=== PATIENT | female | born 1950 | race Caucasian/White ===

== ENCOUNTER → 2020-08-15 | Outpatient (BNVA) | payer MEDICARE, SELFPAY | PROVIDERS: PCP Family Medicine; Referring Provider Family Medicine; Visit Provider Nurse Practitioner Family | DX: Z01.810 Encounter for preprocedural cardiovascular examination (principal); I25.10 Atherosclerotic heart disease of native coronary artery without angina pectoris; I42.8 Other cardiomyopathies; I11.0 Hypertensive heart disease with heart failure; I50.22 Chronic systolic (congestive) heart failure; I48.0 Paroxysmal atrial fibrillation; I44.7 Left bundle-branch block, unspecified; Z79.01 Long term (current) use of anticoagulants; Z79.899 Other long term (current) drug therapy; Z95.810 Presence of automatic (implantable) cardiac defibrillator | CPT/HCPCS: 93000; 99214 ==

== ENCOUNTER 2020-08-22 09:21 | Outpatient (REF) | payer MEDICARE, SELFPAY ==
[2020-08-22 13:01] LABS: Alanine Aminotransferase 17 U/L (0-31); Anion Gap 13 (12-20); Aspartate Amino Transferase 23 U/L (5-31); Blood Urea Nitrogen 18 mg/dL (9-16); Calcium 8.8 mg/dL (8.4-10.2); Carbon Dioxide 26 mmol/L (22-29); Chloride 105 mmol/L (96-108); Estimated Glomerular Filt Rate > 60; Glucose Random 91 mg/dL (60-115); Potassium 4.5 mmol/l (3.3-5.1); Sodium 139 mmol/L (135-145)
[2020-08-22 13:23] LABS: TSH reflex Free T4 4.24 mIU/mL (0.32-4.0)
[2020-08-22 14:18] LABS: Free T4 (Free Thyroxine) 1.05 ng/dL (0.71-1.85)
== END 2020-08-22 09:22 | disposition home or self-care (01) ==
LOC: HO.LAB 09:21
PROVIDERS: PCP Family Medicine; Visit Provider Nurse Practitioner Family
DX: I48.0 Paroxysmal atrial fibrillation (principal); I10 Essential (primary) hypertension
CPT/HCPCS: 80048; 84439; 84443; 84450; 84460

== ENCOUNTER → 2020-09-23 10:34 | Outpatient (BNVA) | payer MEDICARE, SELFPAY | PROVIDERS: PCP Family Medicine; Referring Provider Family Medicine; Visit Provider Internal Medicine Cardiovascular Disease | DX: I50.22 Chronic systolic (congestive) heart failure (principal); I42.8 Other cardiomyopathies; I48.0 Paroxysmal atrial fibrillation; I25.10 Atherosclerotic heart disease of native coronary artery without angina pectoris; Z79.01 Long term (current) use of anticoagulants; Z79.899 Other long term (current) drug therapy | CPT/HCPCS: Q3014 ==

== ENCOUNTER → 2020-10-28 10:44 | Outpatient (BNVA) | payer MEDICARE, SELFPAY | PROVIDERS: PCP Family Medicine; Visit Provider Nurse Practitioner Family | DX: Z01.810 Encounter for preprocedural cardiovascular examination (principal); I48.0 Paroxysmal atrial fibrillation; I44.7 Left bundle-branch block, unspecified; I25.10 Atherosclerotic heart disease of native coronary artery without angina pectoris; I42.8 Other cardiomyopathies; I11.0 Hypertensive heart disease with heart failure; I50.22 Chronic systolic (congestive) heart failure; Z79.01 Long term (current) use of anticoagulants; Z79.899 Other long term (current) drug therapy; Z95.810 Presence of automatic (implantable) cardiac defibrillator | CPT/HCPCS: 93005; 99212 ==

== ENCOUNTER → 2021-01-01 11:51 | Outpatient (BNVA) | payer MEDICARE, MEDICAID, SELFPAY | PROVIDERS: PCP Family Medicine; Visit Provider Internal Medicine Cardiovascular Disease | DX: I48.0 Paroxysmal atrial fibrillation (principal); I25.10 Atherosclerotic heart disease of native coronary artery without angina pectoris; I50.22 Chronic systolic (congestive) heart failure; Z95.810 Presence of automatic (implantable) cardiac defibrillator; Z79.899 Other long term (current) drug therapy | CPT/HCPCS: 93005; 99212 ==

== ENCOUNTER → 2021-07-01 09:48 | Outpatient (REF) | payer MEDICARE, SELFPAY ==
--- NOTE | 2021-07-01 09:52 | CA_ITS ---
Transthoracic Echocardiogram Patient (Last, First, Middle): Marlin Correa J Gender: Female Date of : 1950 Age: 71 Procedure Date: 07/01/2021 Procedure Type: Transthoracic Echocardiogram Location: OP Height: 165.1 cm Weight: 80.74 kg BSA: 1.88 m2 Heart Rate: bpm BP: 152 / 72 mmHg Electrical Engineering Drafting Officer: Referring MD: Marvin Swanson MD Marketing Automation Specialist: Marvin Swanson MD Symptoms: I42.9 - Cardiomyopathy, unspecified Study Quality: Fair ECG Rhythm: Ventriculary paced rhythm Conclusions: - 1. Low normal LV systolic function LVEF of 50-55% with impaired relaxation filling pattern and elevated filling pressures 2. Mildly dilated left atrium 3. Calcified aortic valve changes noted with may be early aortic stenosis 4. Mitral calcification with mild mitral regurgitation 5. Normal RV systolic pressure 6. Small to moderate pericardial effusion Findings Left Ventricle Normal left ventricular cavity size. There is normal left ventricular wall thickness. The left ventricular systolic function is low normal. The visually estimated ejection fraction is between 50-55%. Spectral Doppler is indicative of an impaired relaxation filling pattern. E/E prime ratio is >15, consistent with elevated filling pressures. Right Ventricle Normal right ventricular cavity size and systolic function. There is an ICD wire seen in the right ventricle. Atria The left atrium is mildly dilated. There is no evidence of interatrial shunt. The right atrium is mildly dilated. Aortic Valve There is mild calcification of the aortic valve. There are fibrocalcifications on the aortic valve wall. There is no aortic valve stenosis. The peak aortic gradient is 13 mmHg.The mean gradient is 7 mmHg. There is no aortic valve regurgitation. Mitral Valve There is mild anterior and moderate posterior mitral leaflet thickening. There is moderate mitral annular calcification. There is mild mitral valve regurgitation. There is no mitral valve stenosis. Pulmonic Valve The pulmonic valve was not well visualized. Tricuspid Valve Likely normal tricuspid valve structure and function. There is mild tricuspid valve regurgitation. The right ventricular systolic pressure is normal. The right ventricular systolic pressure is 25 mmHg. The pulmonary artery systolic pressure is not calculated. Normal right atrial pressure. There is no evidence of pulmonary hypertension. Great Vessels All visible segments of the aorta are normal in size. The pulmonary artery was not well visualized. Venous The inferior vena cava is normal in size and collapses greater than 50% with inspiration. Pericardium/Pleural There is a small circumferential pericardial effusion. There is no pleural effusion. Prior Study Comparison Changes noted compared to prior study dated: 07/16/2020. LV systolic function has improved Measurements 2D Linear Measurements RVIDd: 3.02 RVIDd Index: 1.61 IVSd: 0.96 0.6-0.9/0.6-1.0 cm LVIDd: 4.42 3.9-5.3/4.2-5.9 cm LVIDd Index: 2.35 2.4-3.2/2.2-3.1 cm/m2 LVIDs: 3.56 2.0-3.6 cm LVPWd: 1.53 0.7-1.1 cm Ao Root: 2.40 2.1-3.5 cm LA Diam: 4.40 2.7-3.8/3.0-4.0 cm LAIDs Index: 2.34 1.5-2.3 cm/m2 LV Mass: 253.33 67-162/88-224 g LV Mass Index: 134.75 43-95/49-115 g/m2 LVOT Diam: 2.00 3.0+(-)1.3 cm 2D Systolic Function EF 4C: 46.60 >55% EF 2C: 56.60 >55% EF BiP: 50.70 >55% Mitral Valve MV Pk E: 0.89 MV PK A: 1.03 MV Decel Time: 266.00 E/A: 0.90 E'Lateral: 5.44 E'Medial: 5.44 E/E' Med: 16.40 E/E' Lat: 16.40 Aortic Valve AoV Pk Kyrie: 1.81 AoV Mn Kyrie: 1.31 AoV VTI: 0.38 AoV Pk Grad: 13.00 Aov Mn Grad: 7.00 RADHA Cont.VTI: 2.00 LVOT LVOT Pk Kyrie: 0.85 LVOT Mn Kyrie: 0.66 LVOT VTI: 0.24 LVOT Pk Grad: 3.00 LVOT Mn Grad: 2.00 LVOT Diam: 2.00 LVOT Area: 3.14 Diastolic Function MV Pk E: 0.89 MV Pk A: 1.03 E/A: 0.90 E'Medial: 5.44 E/E' Med: 16.40 E' Laterial: 5.44 E/E' Lat: 16.40 Right Ventricle TAPSE (mm): 21.00 TVS' Kyrie: 10.20 Tricuspid Valve TR Pk Kyrie: 2.33 TR Pk Grad: 22.00 RA Press: 3.00 RVSP: 25.00 Great Vessels Aorta Ao Root-2D: 2.40 2.0-3.7 cm Ao Asc: 3.20 2.1-3.4 cm Ao Arch: 2.40 Updated in Other Vendor System with Status of Final Marvin Swanson MD electronically signed on 07/02/2021 12:21:49 PM with status of Final
== END ==
LOC: HO.CARD 09:48
PROVIDERS: Visit Provider Internal Medicine Cardiovascular Disease
DX: I25.10 Atherosclerotic heart disease of native coronary artery without angina pectoris (principal); I42.9 Cardiomyopathy, unspecified; I48.0 Paroxysmal atrial fibrillation; I50.22 Chronic systolic (congestive) heart failure
CPT/HCPCS: 93306

== ENCOUNTER 2021-07-09 10:38 | Outpatient (REF) | payer MEDICARE, SELFPAY ==
[2021-07-09 12:50] LABS: Hematocrit 32.5 % (37-47); Hemoglobin 10.5 g/dl (12.0-16.0); Mean Corpuscular HGB Conc 32.3 g/dl (31.0-35.0); Mean Corpuscular Hemoglobin 33.4 pg (27.0-33.0); Mean Corpuscular Volume 103.5 fL (80-98); Mean Platelet Volume 9.4 fL (9.4-12.3); Platelet Count 176 X10*3/uL (160-400); Red Blood Count 3.14 X10*6/uL (4.20-5.50); Red Cell Distribution Width 14.1 % (11.0-16.0); White Blood Count 6.1 X10*3/uL (4.8-10.8)
[2021-07-09 13:08] LABS: B Type Natriuretic Peptide 79 pg/mL (<100)
[2021-07-09 13:23] LABS: Alanine Aminotransferase 14 U/L (0-31); Albumin Level 3.8 g/dL (3.5-5.0); Alkaline Phosphatase 110 U/L (39-117); Anion Gap 12 (12-20); Aspartate Amino Transferase 19 U/L (5-31); Bilirubin Direct 0.3 mg/dL (0.0-0.5); Bilirubin Total 0.8 mg/dL (0.0-1.0); Blood Urea Nitrogen 19 mg/dL (9-16); Calcium 9.1 mg/dL (8.4-10.2); Carbon Dioxide 27 mmol/L (22-29); Chloride 104 mmol/L (96-108); Estimated Glomerular Filt Rate > 60; Glucose Random 91 mg/dL (60-115); Magnesium 2.1 mg/dL (1.6-2.6); Potassium 4.6 mmol/L (3.3-5.1); Sodium 138 mmol/L (135-145); Total Protein 6.1 g/dL (6.5-8.0)
[2021-07-09 13:29] LABS: TSH reflex Free T4 (Prenatal) 5.96 uIU/mL (0.32-4.0)
[2021-07-09 14:12] LABS: Free T4 (Free Thyroxine) 0.99 ng/dL (0.71-1.85)
== END 2021-07-09 10:39 | disposition home or self-care (01) ==
LOC: HO.LAB 10:38
PROVIDERS: PCP Family Medicine; Referring Provider Family Medicine; Visit Provider Internal Medicine Cardiovascular Disease
DX: I48.0 Paroxysmal atrial fibrillation (principal); I50.22 Chronic systolic (congestive) heart failure; I50.30 Unspecified diastolic (congestive) heart failure; Z95.810 Presence of automatic (implantable) cardiac defibrillator
CPT/HCPCS: 36415; 80048; 80076; 83735; 83880; 84439; 85027; 93005; 99212

== ENCOUNTER 2021-08-15 10:01 | Emergency (ER) | payer MEDICARE, SELFPAY ==
[2021-08-15] VITALS (7 sets, daily range): BP systolic 140–193; BP diastolic 48–61; PULSE 64–70; RESP 16–20; TEMP 36.5–37; O2SAT 97–100; BMI 28.8
--- NOTE | ~2021-08-15 | CT_ITS ---
EXAMINATION: CT ABDOMEN AND PELVIS WITH CONTRAST CLINICAL INFORMATION: Back pain radiating to the left hip. On antibiotics for UTI. COMPARISON: CT abdomen pelvis February 03, 2013 TECHNIQUE: Multidetector volumetric images were obtained from the superior aspect of the liver through the pubic symphysis following administration 85 mL of Omnipaque 350 intravenous contrast. Sagittal and coronal reformatted images were obtained on the technologist's workstation. This CT examination was performed using dose optimization techniques as appropriate, variously including the following: *Automated exposure control *Adjustment of mA and/or kV according to patient size (this includes techniques or standardized protocols for targeted exams where dose is matched to indication/reason for exam; i.e. extremities or head) *Use of iterative reconstruction technique DLP: 748 mGy-cm FINDINGS: Visualized lung bases demonstrate mild dependent atelectasis. Partially visualized AICD leads. A small pericardial effusion is also partially visualized. The liver demonstrates normal size, contour and attenuation. The gallbladder is surgically absent. Mild intrahepatic biliary ductal dilatation is present. The common bile duct is mildly dilated measuring up to 1 cm in diameter. Mild fatty atrophy of the pancreas. The spleen and adrenal glands are unremarkable. Symmetrically enhancing kidneys. No hydronephrosis bilaterally. Normal caliber loops of small and large bowel. Mild circumferential mucosal thickening with mild adjacent mesenteric stranding surrounding a few loops of small bowel within the central abdomen, nonspecific. Moderate colonic stool burden. Moderate colonic diverticulosis without CT evidence to suggest active diverticulitis. Interval enlargement of a now large infraumbilical ventral abdominal hernia. Fascial defect measures approximately 12.5 x 5 cm in transverse by craniocaudal dimension. Several loops of nonobstructed small bowel are present within the hernia. Normal caliber abdominal aorta which demonstrates mild to moderate atherosclerotic disease. No retroperitoneal lymphadenopathy. The bladder is normal in appearance. The uterus is surgically absent. No gross free pelvic fluid. No inguinal lymphadenopathy. Diffuse osteopenia. Scoliotic and moderate degenerative changes of the spine. Mild height loss of the L5 vertebral body, age indeterminate. Degenerative changes of both hips, more prominent on the left. There is complete loss of the superior aspect of the left femoral acetabular joint space. CT/CT abdomen pelvis w con IMPRESSION: 1. Interval enlargement of now large infrarenal umbilical ventral abdominal hernia containing several loops of nonobstructed small bowel. 2. Mild circumferential mucosal thickening is demonstrated within a few loops of small bowel within the central abdomen with adjacent mild mesenteric stranding. Findings are nonspecific but may represent a mild enteritis. Clinical correlation recommended. 3. Moderate colonic stool burden suggesting constipation. 4. Moderate colonic diverticulosis. 5. Mildly dilated common bile duct with mild intrahepatic biliary ductal dilatation, likely within normal limits for a patient of this age who is status post cholecystectomy. 6. Small pericardial effusion partially visualized. 7. Degenerative changes of both hips, more prominent on the left. 8. Mild height loss of the L5 vertebral body, age indeterminate.
--- NOTE | 2021-08-15 12:37 | ED_ITS ---
HPI - Back Pain/Injury General Chief Complaint: Back Pain/Injury <HUA Vu - Last Filed: 08/15/21 20:32> Stated Complaint: lower back and leg pain <HUA Vu Last Filed: 08/15/21 20:32> Time Seen by Provider: 08/15/21 11:51 <HUA Vu Last Filed: 08/15/21 20:32> Source: patient <HUA Vu Last Filed: 08/15/21 20:32> Mode of arrival: ambulatory <HUA Vu Last Filed: 08/15/21 20:32> Limitations: no limitations <HUA Vu Last Filed: 08/15/21 20:32> History of Present Illness HPI Narrative: 71-year-old female with a past medical history of degenerative disc disease of lumbar spine, biventricular ICD in place since 04/2020, CAD, cardiomyopathy, chronic systolic heart failure, hypertension, left bundle branch block, paroxysmal atrial fibrillation currently on Eliquis, uterine cancer status post partial hysterectomy still has right ovary who completed radiation and chemotherapy April 2021 and chronic back pain presenting to the ED with complaints of acute on chronic back pain over the past 3 weeks or more. She reports that she was seen by her primary care provider and was given steroids and she did not have any symptomatic relief. Therefore she was sent to [facility] emergency department where she had x-rays of her lumbar spine per the patient which revealed degenerative disc disease per the patient and she was sent home on antibiotics for UTI although she reports she came here for further evaluation treatment because she is taking Tylenol, muscle relaxants, her antibiotics and steroids and she is still not having any symptomatic relief. She reports that the pain is radiating to her left lower leg right to the knee it is a sharp pain and sensation. She normally walks with a cane although she is having a lot of pain therefore is having trouble walking although does not have any weakness. She denies any fevers, chills, dizziness, headache, neck pain/stiffness, chest pain or shortness of breath, dyspnea on exertion, orthopnea, palpitations, rashes, abdominal pain, dysuria, hematuria, abnormal vaginal discharge, diarrhea constipation, black or bloody stools, urinary or bowel incontinence or retention, paresthesias, recent falls, history of IV drug use, recent surgery or travel or any other symptoms complaints or concerns at this time. <HUA Vu - Last Filed: 08/15/21 20:32> MD elicited complaint: back pain <HUA Vu Last Filed: 08/15/21 20:32> Pertinent past history: prior back pain, arthritis and cancer <HUA Vu - Last Filed: 08/15/21 20:32> Onset (ago): week(s) (Over 3 weeks) <HUA Vu - Last Filed: 08/15/21 20:32> Timing: constant and progressively worsening <HUA Vu - Last Filed: 08/15/21 20:32> Severity: severe <HUA Vu - Last Filed: 08/15/21 20:32> Pain scale (0-10): 10 <HUA Vu Last Filed: 08/15/21 20:32> Quality: sharp <HUA Vu - Last Filed: 08/15/21 20:32> Location: lumbar spine <HUA Vu - Last Filed: 08/15/21 20:32> Radiation: left upper leg (Right to the knee) <HUA Vu - Last Filed: 08/15/21 20:32> Exacerbating factors: movement, supine positioning, sitting upright, walking and lifting <HUA Vu - Last Filed: 08/15/21 20:32> Relieving factors: none <HUA Vu - Last Filed: 08/15/21 20:32> Context: unknown <HUA Vu - Last Filed: 08/15/21 20:32> Associated symptoms: difficulty walking <HUA Vu - Last Filed: 08/15/21 20:32> Treatments prior to arrival: acetaminophen and other (Steroids and her prescribed Keflex and no symptomatic relief) <HUA Vu Last Filed: 08/15/21 20:32> Work related injury: No <HUA Vu Last Filed: 08/15/21 20:32> Related Data Home Medications: Home Medications Medication Instructions Recorded Confirmed atorvastatin 20 mg tablet 20 mg PO DAILY 08/15/20 07/09/21 loratadine 10 mg tablet 10 mg PO DAILY 08/15/20 07/09/21 omeprazole 20 mg capsule,delayed 20 mg PO DAILY 08/15/20 07/09/21 release tramadol 50 mg tablet mg PO 08/15/20 07/09/21 clonazepam 2 mg tablet 2 mg PO tab 07/09/21 07/09/21 furosemide 20 mg tablet 20 mg PO Q OTHER DAY PRN tab 07/09/21 07/09/21 Previous Rx's Medication Instructions Recorded levothyroxine 25 mcg tablet 25 mcg PO QAM 90 Days #90 tab 01/01/21 amiodarone 200 mg tablet 100 mg PO DAILY #30 tab 01/06/21 carvedilol 12.5 mg tablet (Coreg) 12.5 mg PO BID #60 tab 01/28/21 valsartan 160 mg tablet 160 mg PO DAILY 90 Days #90 tab 06/01/21 apixaban 5 mg tablet (Eliquis) 5 mg PO BID 30 Days #60 tab 06/05/21 <HUA Vu - Last Filed: 08/15/21 20:32> Allergies/Adverse Reactions: Allergies Allergy/AdvReac Type Severity Reaction Status Date / Time levofloxacin [From LEVAQUIN] Allergy Intermediate RASH Verified 08/15/21 11:09 Darvocet-N 50 Allergy Mild hives Uncoded 08/15/21 11:09 Sulfacet-R Allergy Unknown gi Uncoded 06/24/20 00:00 <HUA Vu - Last Filed: 08/15/21 20:32> Review of Systems Review of Systems: Constitutional : No trauma, No Weight loss, No Fever, No Chills, ENT/Mouth : No Hearing loss, No Ear Pain, No Nasal Congestion, No Sinus Pain, No Hoarseness, No sore throat, No Rhinorrhea, No Swallowing Difficulty Cardiovascular : No Chest Pain, No SOB Respiratory : No Cough, No Dyspnea Gastrointestinal : No Nausea, No Vomiting, No Diarrhea, No abdominal Pain, No Hematochezia, No Melena Genitourinary : No Dysuria, No Urinary Frequency, No Hematuria, No Urinary or Bowel Incontinence/retention Musculoskeletal : + Back pain, No neck pain, No joint stiffness, No joint swelling Skin : No Skin Lesions, No rash or signs of infection Neuro : No Weakness, No radiation, No Numbness, No Paresthesias, No headache, no loss of bowel or bladder incontinence, no saddle anesthesia, Focal weakness, No radiation Denies history of IV drug usage. <HUA Vu - Last Filed: 08/15/21 20:32> Yes all other systems are reviewed and are negative <HUA Vu - Last Filed: 08/15/21 20:32> [facility] Past Medical History Attestation statement: The following information was validated with the patient. <HUA Vu - Last Filed: 08/15/21 20:32> Medical History: Medical History Biventricular ICD (implantable cardioverter-defibrillator) in place (~04/2020) CAD (coronary artery disease) Cardiomyopathy Chronic systolic heart failure HTN (hypertension) LBBB (left bundle branch block) Paroxysmal atrial fibrillation <HUA Vu - Last Filed: 08/15/21 20:32> Surgical History: Surgical History History of permanent cardiac pacemaker placement Hx of hernia repair <HUA Vu - Last Filed: 08/15/21 20:32> Family History Family History: Family History Father Cancer Mother No problems noted. <HUA Vu - Last Filed: 08/15/21 20:32> Social History Social History: Social History Alcohol intake: never Patient Tobacco Use Status: Never used Tobacco Use of substances other than those prescribed or required for medical reasons: No Advance Directives: Yes Advance Directives Information Provided: Yes Advance Directives on File: No <HUA Vu - Last Filed: 08/15/21 20:32> Physical Exam Vital Signs: Vital Signs: Last Vital Signs Temp 97.8 F 08/16/21 07:49 Pulse 63 08/16/21 07:49 Resp 16 08/16/21 07:49 BP 132/45 L 08/16/21 07:49 Pulse Ox 95 08/16/21 07:49 Body Mass Index 28.8 vital signs have been reviewed as normal and appeared to be correct. Blood pressure 159/59. Heart rate normal. Respiration rate normal. Temperature normal. Oxygen saturation normal. <HUA Vu - Last Filed: 08/15/21 20:32> Vital Signs: Last Vital Signs Temp 97.8 F 08/16/21 07:49 Pulse 63 08/16/21 07:49 Resp 16 08/16/21 07:49 BP 132/45 L 08/16/21 07:49 Pulse Ox 95 08/16/21 07:49 Body Mass Index 28.8 <Helene Mendoza DO - Last Filed: 08/16/21 09:09> Appearance: Alert. Oriented X3. No acute distress. Head: Normal external exam. Normocephalic. Atraumatic. Eyes: PERRLA. EOMI. Conjunctiva and sclera normal. Eyelids normal. ENT: Pharynx normal. Uvula midline. Moist mucous membranes. Neck: Normal inspection. Neck supple. FROM. No adenopathy. Thyroid Normal. No meningeal signs. No neck mass noted. CVS: Normal heart rate and rhythm. Heart sound normal. No murmurs noted. Pulses normal throughout. Respiratory: No respiratory distress. Painless inspiration. Breath sounds normal. No wheezes/rales/rhonchi noted. Chest nontender. No accessory muscle usage noted or decreased air movement noted. Abdomen: Soft and nontender. Bowel sounds normal in all 4 quadrants. No distention noted. No organomegaly noted. No visible injury noted. Back: No CVA tenderness. Full range of motion noted. No obvious deformities, or edema. Mild para-spinal muscular tenderness from lumbar region to coccyx. Full ROM in back and lower extremities. 5/5 strength hip extension/flexion, abduction, adduction. Mild Lumbar pain with hip flexion against resistance. Stra ight leg raise test negative on right; Straight leg raise test negative on left; Reflexes normal ankle and knee bilaterally; EHL motor strength normal bilaterally. No rashes/lesion/induration/fluctuance or signs infection noted. : Normal rectal sensation/sphincter tone. Skin: Skin warm and dry. Normal skin color. Normal skin turgor. No rashes/lesions/lacerations noted. Extremities: No lower extremity edema. Extremities exhibit normal range of motion. Extremities nontender. Neuro: Oriented X 3. No motor deficit. No sensory deficit. Reflexes normal. <HUA Vu - Last Filed: 08/15/21 20:32> Course Course Course Narrative: 12pm - 71-year-old female with a past medical history of degenerative disc disease of lumbar spine, biventricular ICD in place since 04/2020, CAD, cardiomyopathy, chronic systolic heart failure, hypertension, left bundle branch block, paroxysmal atrial fibrillation currently on Eliquis, uterine cancer status post partial hysterectomy still has right ovary who completed radiation and chemotherapy April 2021 and chronic back pain presenting to the ED with complaints of acute on chronic back pain over the past 3 weeks or more. Already trialed a taper of steroids and muscle relaxants currently on antibiotics Keflex for UTI and taking as prescribed only has 4 tablets left. Had x-ray of lumbar spine at [facility] over the past week and she was told that she had degenerative disc disease. - On exam patient is in severe pain otherwise no other acute distress. She is mildly hypertensive at 159/59 otherwise all other vitals are within normal limits. There are no focal deficits noted. She does have tenderness palpation to para spinous and mid lumbar spine although no step-offs or deformities are no rani. She appears to have a normal range of motion of lumbar spine. She has a negative straight leg raise bilaterally. Gait not tested at this time due to patient is in severe pain. She has normal strength to bilateral arms and lower extremities. Reflexes are intact. She has a normal rectal tone and sphincter tone and normal sensation to the rectal area. - At this time will obtain labs, UA. Provide 4 mg of IM morphine, 4 mg of Zofran then re-evaluate. <HUA Vu - Last Filed: 08/15/21 20:32> Reevaluation(s) Reevaluation #1: - labs return patient with an elevated white blood cell count 93400. She has a mid mild baseline anemia similar compared to prior. Chloride 109. BUN 26. Otherwise all other labs are within normal limits. UA with a trace of leukocytes and 10-14 white blood cells. Patient is currently on Keflex at this time will await urine culture. - CT scan abdomen pelvis with IV contrast revealed chronic changes no acute processes were noted. - therefore when I attempted to reimage late the patient despite giving at this time 8 mg of morphine since she has been here IM/IV she is not complaining of pain again and when I attempt to ambulate her she reports a lot of pain in her back and her left hip although she is able to ambulate. Due to severe pain I am uncomfortable sending the patient home even though she lives with her niece therefore I had a conversation with the patient and I will keep her here for physical therapy evaluation and possibly case management for short-term rehab versus VNA services. Patient understands and agrees with this plan. - at this time patient is placed in physician observation. Patient is alert oriented x3. In pain otherwise not in any acute distress. No focal neuro deficits are noted. Lungs clear to auscultation. CV RRR. Patient is awaiting physical therapy/case management evaluation. <HUA Vu - Last Filed: 08/15/21 20:32> Time: 17:24 <HUA Vu - Last Filed: 08/15/21 20:32> MDM - Back Pain/Injury Medical Records Attestation: I reviewed the patient's medical records. <HUA Vu - Last Filed: 08/15/21 20:32> Lab Data Attestation: I reviewed the patient's lab results. <HUA Vu - Last Filed: 08/15/21 20:32> Result diagrams: : 08/15/21 13:27 08/15/21 13:27 <HUA Vu - Last Filed: 08/15/21 20:32> Labs: Lab Results 08/15/21 08/15/21 08/15/21 Range/Units 13:26 13:27 13:27 WBC 11.9 H (4.8-10.8) X10*3/uL RBC 3.15 L (4.20-5.50) X10*6/uL Hgb 10.3 L (12.0-16.0) g/dl Hct 31.5 L (37-47) % MCV 100.0 H (80-98) fL MCH 32.7 (27.0-33.0) pg MCHC 32.7 (31.0-35.0) g/dl RDW 14.0 (11.0-16.0) % Plt Count 185 (160-400) X10*3/uL MPV 8.9 L (9.4-12.3) fL Immature Gran % (Auto) 2.4 H (0.0-0.4) % Neut % (Auto) 80.5 H (45-73) % Lymph % (Auto) 4.7 L (20-40) % [place] % (Auto) 11.6 H (2-11) % Eos % (Auto) 0.7 (0-4) % Baso % (Auto) 0.1 (0-2) % Lymph # (Auto) 0.6 L (1.2-4.9) X10*3/uL [place] # (Auto) 1.4 H (0.1-1.2) X10*3/uL Eos # (Auto) 0.1 (0.0-0.4) X10*3/uL Baso # (Auto) 0.0 (0.0-0.2) X10*3/uL Abs Immat Gran (auto) 0.28 H (0.00-0.03) X10*3/uL Absolute Neuts (auto) 9.5 H (2.0-8.3) X10*3/uL Absolute Nucleated RBC 0.020 H (0.0-0.012) X10*3/uL Nucleated RBC % (auto) 0.2 (0.0-0.2) /100WBC Hold Purple Top PT 12.8 (9.9-13.0) SEC INR 1.1 (0.9-1.1) Sodium (135-145) mmol/L Potassium (3.3-5.1) mmol/L Chloride (96-108) mmol/L Carbon Dioxide (22-29) mmol/L Anion Gap (12-20) BUN (9-16) mg/dL Creatinine (0.5-1.4) mg/dL Estim Creat Clear Calc Estimated GFR Random Glucose (60-115) mg/dL Calcium (8.4-10.2) mg/dL Magnesium (1.6-2.6) mg/dL Total Bilirubin (0.0-1.0) mg/dL AST (5-31) U/L ALT (0-31) U/L Alkaline Phosphatase (39-117) U/L Total Protein (6.5-8.0) g/dL Albumin (3.5-5.0) g/dL Urine Color YELLOW Urine Appearance CLEAR Urine pH 6.0 (5.0-8.0) Ur Specific [place] 1.010 (1.005-1.025) Urine Protein NEG (NEG-TRACE) MG/DL Urine Glucose (UA) NEG (NEG) MG/DL Urine Ketones NEG (NEG) MG/DL Urine Blood NEG (NEG) Urine Nitrite NEG (NEG) Ur Leukocyte Esterase TRACE H (NEG) Urine RBC 0 (0) /HPF Urine WBC 10-14 H (0-4) /HPF Ur Squamous Epith Cells TRACE /LPF Urine Bacteria NONE /LPF Urine Mucus TRACE /LPF 08/15/21 08/15/21 Range/Units 13:27 13:27 WBC (4.8-10.8) X10*3/uL RBC (4.20-5.50) X10*6/uL Hgb (12.0-16.0) g/dl Hct (37-47) % MCV (80-98) fL MCH (27.0-33.0) pg MCHC (31.0-35.0) g/dl RDW (11.0-16.0) % Plt Count (160-400) X10*3/uL MPV (9.4-12.3) fL Immature Gran % (Auto) (0.0-0.4) % Neut % (Auto) (45-73) % Lymph % (Auto) (20-40) % [place] % (Auto) (2-11) % Eos % (Auto) (0-4) % Baso % (Auto) (0-2) % Lymph # (Auto) (1.2-4.9) X10*3/uL [place] # (Auto) (0.1-1.2) X10*3/uL Eos # (Auto) (0.0-0.4) X10*3/uL Baso # (Auto) (0.0-0.2) X10*3/uL Abs Immat Gran (auto) (0.00-0.03) X10*3/uL Absolute Neuts (auto) (2.0-8.3) X10*3/uL Absolute Nucleated RBC (0.0-0.012) X10*3/uL Nucleated RBC % (auto) (0.0-0.2) /100WBC Hold Purple Top SEE NOTE PT (9.9-13.0) SEC INR (0.9-1.1) Sodium 142 (135-145) mmol/L Potassium 4.2 (3.3-5.1) mmol/L Chloride 109 H (96-108) mmol/L Carbon Dioxide 24 (22-29) mmol/L Anion Gap 13 (12-20) BUN 26 H (9-16) mg/dL Creatinine 0.88 (0.5-1.4) mg/dL Estim Creat Clear Calc 59.8 Estimated GFR > 60 Random Glucose 101 (60-115) mg/dL Calcium 8.9 (8.4-10.2) mg/dL Magnesium 1.7 (1.6-2.6) mg/dL Total Bilirubin 0.4 (0.0-1.0) mg/dL AST 16 (5-31) U/L ALT 20 (0-31) U/L Alkaline Phosphatase 112 (39-117) U/L Total Protein 6.1 L (6.5-8.0) g/dL Albumin 3.8 (3.5-5.0) g/dL Urine Color Urine Appearance Urine pH (5.0-8.0) Ur Specific [place] (1.005-1.025) Urine Protein (NEG-TRACE) MG/DL Urine Glucose (UA) (NEG) MG/DL Urine Ketones (NEG) MG/DL Urine Blood (NEG) Urine Nitrite (NEG) Ur Leukocyte Esterase (NEG) Urine RBC (0) /HPF Urine WBC (0-4) /HPF Ur Squamous Epith Cells /LPF Urine Bacteria /LPF Urine Mucus /LPF <HUA Vu - Last Filed: 08/15/21 20:32> Lab Results 08/15/21 08/15/21 08/15/21 Range/Units 13:26 13:27 13:27 WBC 11.9 H (4.8-10.8) X10*3/uL RBC 3.15 L (4.20-5.50) X10*6/uL Hgb 10.3 L (12.0-16.0) g/dl Hct 31.5 L (37-47) % MCV 100.0 H (80-98) fL MCH 32.7 (27.0-33.0) pg MCHC 32.7 (31.0-35.0) g/dl RDW 14.0 (11.0-16.0) % Plt Count 185 (160-400) X10*3/uL MPV 8.9 L (9.4-12.3) fL Immature Gran % (Auto) 2.4 H (0.0-0.4) % Neut % (Auto) 80.5 H (45-73) % Lymph % (Auto) 4.7 L (20-40) % [place] % (Auto) 11.6 H (2-11) % Eos % (Auto) 0.7 (0-4) % Baso % (Auto) 0.1 (0-2) % Lymph # (Auto) 0.6 L (1.2-4.9) X10*3/uL [place] # (Auto) 1.4 H (0.1-1.2) X10*3/uL Eos # (Auto) 0.1 (0.0-0.4) X10*3/uL Baso # (Auto) 0.0 (0.0-0.2) X10*3/uL Abs Immat Gran (auto) 0.28 H (0.00-0.03) X10*3/uL Absolute Neuts (auto) 9.5 H (2.0-8.3) X10*3/uL Absolute Nucleated RBC 0.020 H (0.0-0.012) X10*3/uL Nucleated RBC % (auto) 0.2 (0.0-0.2) /100WBC Hold Purple Top PT 12.8 (9.9-13.0) SEC INR 1.1 (0.9-1.1) Sodium (135-145) mmol/L Potassium (3.3-5.1) mmol/L Chloride (96-108) mmol/L Carbon Dioxide (22-29) mmol/L Anion Gap (12-20) BUN (9-16) mg/dL Creatinine (0.5-1.4) mg/dL Estim Creat Clear Calc Estimated GFR Random Glucose (60-115) mg/dL Calcium (8.4-10.2) mg/dL Magnesium (1.6-2.6) mg/dL Total Bilirubin (0.0-1.0) mg/dL AST (5-31) U/L ALT (0-31) U/L Alkaline Phosphatase (39-117) U/L Total Protein (6.5-8.0) g/dL Albumin (3.5-5.0) g/dL Urine Color YELLOW Urine Appearance CLEAR Urine pH 6.0 (5.0-8.0) Ur Specific [place] 1.010 (1.005-1.025) Urine Protein NEG (NEG-TRACE) MG/DL Urine Glucose (UA) NEG (NEG) MG/DL Urine Ketones NEG (NEG) MG/DL Urine Blood NEG (NEG) Urine Nitrite NEG (NEG) Ur Leukocyte Esterase TRACE H (NEG) Urine RBC 0 (0) /HPF Urine WBC 10-14 H (0-4) /HPF Ur Squamous Epith Cells TRACE /LPF Urine Bacteria NONE /LPF Urine Mucus TRACE /LPF 08/15/21 08/15/21 Range/Units 13:27 13:27 WBC (4.8-10.8) X10*3/uL RBC (4.20-5.50) X10*6/uL Hgb (12.0-16.0) g/dl Hct (37-47) % MCV (80-98) fL MCH (27.0-33.0) pg MCHC (31.0-35.0) g/dl RDW (11.0-16.0) % Plt Count (160-400) X10*3/uL MPV (9.4-12.3) fL Immature Gran % (Auto) (0.0-0.4) % Neut % (Auto) (45-73) % Lymph % (Auto) (20-40) % [place] % (Auto) (2-11) % Eos % (Auto) (0-4) % Baso % (Auto) (0-2) % Lymph # (Auto) (1.2-4.9) X10*3/uL [place] # (Auto) (0.1-1.2) X10*3/uL Eos # (Auto) (0.0-0.4) X10*3/uL Baso # (Auto) (0.0-0.2) X10*3/uL Abs Immat Gran (auto) (0.00-0.03) X10*3/uL Absolute Neuts (auto) (2.0-8.3) X10*3/uL Absolute Nucleated RBC (0.0-0.012) X10*3/uL Nucleated RBC % (auto) (0.0-0.2) /100WBC Hold Purple Top SEE NOTE PT (9.9-13.0) SEC INR (0.9-1.1) Sodium 142 (135-145) mmol/L Potassium 4.2 (3.3-5.1) mmol/L Chloride 109 H (96-108) mmol/L Carbon Dioxide 24 (22-29) mmol/L Anion Gap 13 (12-20) BUN 26 H (9-16) mg/dL Creatinine 0.88 (0.5-1.4) mg/dL Estim Creat Clear Calc 59.8 Estimated GFR > 60 Random Glucose 101 (60-115) mg/dL Calcium 8.9 (8.4-10.2) mg/dL Magnesium 1.7 (1.6-2.6) mg/dL Total Bilirubin 0.4 (0.0-1.0) mg/dL AST 16 (5-31) U/L ALT 20 (0-31) U/L Alkaline Phosphatase 112 (39-117) U/L Total Protein 6.1 L (6.5-8.0) g/dL Albumin 3.8 (3.5-5.0) g/dL Urine Color Urine Appearance Urine pH (5.0-8.0) Ur Specific [place] (1.005-1.025) Urine Protein (NEG-TRACE) MG/DL Urine Glucose (UA) (NEG) MG/DL Urine Ketones (NEG) MG/DL Urine Blood (NEG) Urine Nitrite (NEG) Ur Leukocyte Esterase (NEG) Urine RBC (0) /HPF Urine WBC (0-4) /HPF Ur Squamous Epith Cells /LPF Urine Bacteria /LPF Urine Mucus /LPF <Helene Mendoza DO - Last Filed: 08/16/21 09:09> Imaging Data CT scan abdomen pelvis with IV contrast: Attestation: I personally reviewed and interpreted this imaging study as follows: <HUA Vu - Last Filed: 08/15/21 20:32> Radiologist's impression: FINDINGS: Visualized lung bases demonstrate mild dependent atelectasis. Partially visualized AICD leads. A small pericardial effusion is also partially visualized. The liver demonstrates normal size, contour and attenuation. The gallbladder is surgically absent. Mild intrahepatic biliary ductal dilatation is present. The common bile duct is mildly dilated measuring up to 1 cm in diameter. Mild fatty atrophy of the pancreas. The spleen and adrenal glands are unremarkable. Symmetrically enhancing kidneys. No hydronephrosis bilaterally. Normal caliber loops of small and large bowel. Mild circumferential mucosal thickening with mild adjacent mesenteric stranding surrounding a few loops of small bowel within the central abdomen, nonspecific. Moderate colonic stool burden. Moderate colonic diverticulosis without CT evidence to suggest active diverticulitis. Interval enlargement of a now large infraumbilical ventral abdominal hernia. Fascial defect measures approximately 12.5 x 5 cm in transverse by craniocaudal dimension. Several loops of nonobstructed small bowel are present within the hernia. Normal caliber abdominal aorta which demonstrates mild to moderate atherosclerotic disease. No retroperitoneal lymphadenopathy. The bladder is normal in appearance. The uterus is surgically absent. No gross free pelvic fluid. No inguinal lymphadenopathy. Diffuse osteopenia. Scoliotic and moderate degenerative changes of the spine. Mild height loss of the L5 vertebral body, age indeterminate. Degenerative changes of both hips, more prominent on the left. There is complete loss of the superior aspect of the left femoral acetabular joint space. CT/CT abdomen pelvis w con IMPRESSION: 1.? Interval enlargement of now large infrarenal umbilical ventral abdominal hernia containing several loops of nonobstructed small bowel. 2. ? Mild circumferential mucosal thickening is demonstrated within a few loops of small bowel within the central abdomen with adjacent mild mesenteric stranding. Findings are nonspecific but may represent a mild enteritis. Clinical correlation recommended. 3.? Moderate colonic stool burden suggesting constipation. 4.? Moderate colonic diverticulosis. 5.? Mildly dilated common bile duct with mild intrahepatic biliary ductal dilatation, likely within normal limits for a patient of this age who is status post cholecystectomy. 6.? Small pericardial effusion partially visualized. 7.? Degenerative changes of both hips, more prominent on the left. 8.? Mild height loss of the L5 vertebral body, age indeterminate. <HUA Vu - Last Filed: 08/15/21 20:32> Critical Care Time Critical Care Time Critical Care Time: Yes <HUA Vu - Last Filed: 08/15/21 20:32> Total Critical Care Time: 60 <HUA Vu - Last Filed: 08/15/21 20:32> Attestation: I personally attest to this time spent taking care of the patient <HUA Vu - Last Filed: 08/15/21 20:32> Discharge Plan Discharge Clinical Impression: Degenerative disc disease, lumbar, Degenerative joint disease (DJD) of hip <HUA Vu - Last Filed: 08/15/21 20:32> Patient Disposition: Still a Patient <HUA Vu - Last Filed: 08/15/21 20:32> Prescriptions: No Action amiodarone 200 mg tablet 100 mg PO DAILY Qty: 30 RF: 3 carvedilol [Coreg] 12.5 mg tablet 12.5 mg PO BID Qty: 60 RF: 5 valsartan 160 mg tablet 160 mg PO DAILY 90 Days Qty: 90 RF: 1 Eliquis 5 mg tablet 5 mg PO BID 30 Days Qty: 60 RF: 5 levothyroxine 25 mcg tablet 25 mcg PO QAM 90 Days Qty: 90 RF: 0 furosemide 20 mg tablet 20 mg PO Q OTHER DAY PRNRF: 0 omeprazole 20 mg capsule,delayed release(DR/EC) 20 mg PO DAILY RF: 0 loratadine 10 mg tablet 10 mg PO DAILY RF: 0 tramadol 50 mg tablet PO RF: 0 atorvastatin 20 mg tablet 20 mg PO DAILY RF: 0 clonazepam 2 mg tablet 2 mg PO RF: 0 <HUA Vu Last Filed: 08/15/21 20:32>
[2021-08-15] MEDS: Morphine Sulfate 4 MG/ML CARTRIDGE IM (13:08)
[2021-08-15] MEDS: Ondansetron ODT 4 MG TAB.RAPDIS TRANSLINGU (13:08)
[2021-08-15 13:32] LABS: MANUAL DIFF FLAG NO
[2021-08-15 13:33] LABS: Appearance Urine CLEAR; Color Urine YELLOW; Glucose Urine UA NEG (NEG); Leukocyte Esterase Urine TRACE (NEG); Nitrite Urine NEG (NEG); UACC Culture Trigger YES; Urine Blood NEG (NEG); Urine Ketones NEG (NEG); Urine Protein NEG (NEG-TRACE)
[2021-08-15 13:33] LABS: Basophils Percent Auto 0.1 % (0-2); Eosinophils Absolute Auto 0.1 X10*3/uL (0.0-0.4); Eosinophils Percent Auto 0.7 % (0-4); Hematocrit 31.5 % (37-47); Hemoglobin 10.3 g/dl (12.0-16.0); Imm Gran Abs Auto 0.28 X10*3/uL (0.00-0.03); Imm Gran Pct Auto 2.4 % (0.0-0.4); Lymphocytes Absolute Auto 0.6 X10*3/uL (1.2-4.9); Lymphocytes Percent Auto 4.7 % (20-40); Mean Corpuscular HGB Conc 32.7 g/dl (31.0-35.0); Mean Corpuscular Hemoglobin 32.7 pg (27.0-33.0); Mean Platelet Volume 8.9 fL (9.4-12.3); Monocytes Absolute Auto 1.4 X10*3/uL (0.1-1.2); Monocytes Percent Auto 11.6 % (2-11); NRBC Pct Auto 0.2 /100WBC (0.0-0.2); Neutrophils Absolute Auto 9.5 X10*3/uL (2.0-8.3); Neutrophils Percent Auto 80.5 % (45-73); Platelet Count 185 X10*3/uL (160-400); Red Blood Count 3.15 X10*6/uL (4.20-5.50); White Blood Count 11.9 X10*3/uL (4.8-10.8)
[2021-08-15 13:42] LABS: RBC Urine 0 /HPF (0)
[2021-08-15 13:43] LABS: Mucus Urine TRACE /LPF; Squamous Epithelial Cell Urine TRACE /LPF
[2021-08-15 13:43] LABS: INTERNATIONAL NORM RATIO 1.1 (0.9-1.1); Prothrombin Time 12.8 SEC (9.9-13.0)
[2021-08-15 13:48] LABS: Alanine Aminotransferase 20 U/L (0-31); Albumin Level 3.8 g/dL (3.5-5.0); Alkaline Phosphatase 112 U/L (39-117); Anion Gap 13 (12-20); Aspartate Amino Transferase 16 U/L (5-31); Bilirubin Total 0.4 mg/dL (0.0-1.0); Blood Urea Nitrogen 26 mg/dL (9-16); Calcium 8.9 mg/dL (8.4-10.2); Carbon Dioxide 24 mmol/L (22-29); Chloride 109 mmol/L (96-108); Creatinine Clr Calc Pharmacy 59.8; Estimated Glomerular Filt Rate > 60; Glucose Random 101 mg/dL (60-115); Magnesium 1.7 mg/dL (1.6-2.6); Potassium 4.2 mmol/L (3.3-5.1); Sodium 142 mmol/L (135-145); Total Protein 6.1 g/dL (6.5-8.0)
[2021-08-15] MEDS: Morphine Sulfate 4 MG/ML CARTRIDGE IVPUSH (15:43)
[2021-08-15] MEDS: 0.9 % Sodium Chloride 1,000 ML 999 ML IVCONT (15:44)
[2021-08-15] MEDS: iohexoL 350 MG/ML 100 ML INFUS..BTL IV (16:02)
[2021-08-15] MEDS: oxyCODONE HCl Immed Release 5 MG TABLET PO (18:22)
[2021-08-15] MEDS: diazePAM 5 MG TABLET PO (18:22)
[2021-08-15] MEDS: oxyCODONE HCl ER 10 MG TAB.ER.12H PO (20:01)
[2021-08-15] MEDS: methylPREDNISolone Sod Succ 125 MG/2 ML VIAL IVPUSH (20:02)
[2021-08-16] VITALS (10 sets, daily range): BP systolic 115–152; BP diastolic 37–63; PULSE 62–81; RESP 12–18; TEMP 36.6–37.1; O2SAT 95–98
[2021-08-16] MEDS: oxyCODONE HCl Immed Release 5 MG TABLET PO (02:03)
--- NOTE | 2021-08-16 10:22 | PHA.MEDREC ---
Pharmacy Consult ? Medication Reconciliation Pharmacy has completed the medication reconciliation. Patient is on a prednisone taper. Yesterday was suppose to be the last day of 3 tablets but she did not take anything yesterday. She is taking cephalxin for a UTI and has 4 tablet left over. Ly Ugalde, PharmD
[2021-08-16] MEDS: Multivitamin TABLET 1 TAB PO (11:08)
[2021-08-16] MEDS: cephALEXin 250 MG CAPSULE PO ×3 (11:08→21:27)
[2021-08-16] MEDS: Loratadine 10 MG TABLET PO (11:08)
[2021-08-16] MEDS: traMADoL HCL 50 MG TABLET 100 MG PO ×3 (11:08→21:27)
[2021-08-16] MEDS: Apixaban 5 MG TABLET PO ×2 (11:09→21:29)
[2021-08-16] MEDS: Atorvastatin Calcium 20 MG TABLET PO (11:09)
[2021-08-16] MEDS: polyethylene glycoL 3350 17 GM POWD.PACK PO (11:09)
[2021-08-16] MEDS: Cholecalciferol (Vitamin D3) 25 MCG TABLET PO (11:09)
[2021-08-16] MEDS: predniSONE 10 MG TABLET 30 MG PO (11:09)
[2021-08-16] MEDS: Omeprazole 20 MG CAPSULE.DR PO (11:09)
[2021-08-16] MEDS: Amiodarone HCL 200 MG TABLET 100 MG PO (11:10)
[2021-08-16] MEDS: Valsartan 160 MG TABLET PO (11:24)
--- NOTE | 2021-08-16 11:56 | PC.NURSE ---
pt awake and oriented, resting in bed. Ambulated to commode in room, pt reports limited pain (2/10). back to bed, awaiting PT eval tomorrow.
--- NOTE | 2021-08-16 12:00 | MHC.CM.ED ---
Received case management consult overnight. Patient came to the ER due to back pain. Work up essentially negative. Physical therapy eval is pending. Met with patient in regards to d/c planning. Patient lives with her granddaughter, ambulates with a cane and had no services prior to coming to the ER. PCP verified. Patient states her PCP has a copy of her HCP. Patient received Pfizer vaccines on 06/25 and 07/16. Patient has been active with [facility] in the past. If home therapy is recommended, patient agreeable to [facility]. Referral made via [facility]. Patient has been to [facility] in the past and is not interested in returning there. Copy of facilities provided from [facility]. If STR is needed, choices are 1) [facility] 2) [facility] [place] 3) [facility]. Referrals made via [employer]. Continue to monitor for d/c needs.
[2021-08-16] MEDS: carvediloL 6.25 MG TABLET PO ×2 (12:02→21:28)
[2021-08-16] MEDS: clonazePAM 1 MG TABLET 2 MG PO (21:27)
[2021-08-17] VITALS: RESP 18
[2021-08-17 05:11] VITALS: RESP 18
[2021-08-17 06:00] VITALS: BP 164/56; PULSE 60; RESP 16; TEMP 36.6; O2SAT 97
[2021-08-17 07:35] VITALS: BP 164/56; PULSE 60; O2SAT 97
[2021-08-17] MEDS: Omeprazole 20 MG CAPSULE.DR PO (08:03)
[2021-08-17] MEDS: cephALEXin 250 MG CAPSULE PO (08:04)
[2021-08-17] MEDS: Apixaban 5 MG TABLET PO (08:04)
[2021-08-17] MEDS: Amiodarone HCL 200 MG TABLET 100 MG PO (08:04)
[2021-08-17] MEDS: Cholecalciferol (Vitamin D3) 25 MCG TABLET PO (08:04)
[2021-08-17] MEDS: predniSONE 10 MG TABLET 30 MG PO (08:05)
[2021-08-17] MEDS: Loratadine 10 MG TABLET PO (08:05)
[2021-08-17] MEDS: Atorvastatin Calcium 20 MG TABLET PO (08:05)
[2021-08-17] MEDS: traMADoL HCL 50 MG TABLET 100 MG PO (08:05)
[2021-08-17 08:06] VITALS: BP 164/56; PULSE 61
[2021-08-17] MEDS: carvediloL 6.25 MG TABLET PO (08:06)
[2021-08-17 08:07] VITALS: BP 164/56
[2021-08-17] MEDS: Valsartan 160 MG TABLET PO (08:07)
--- NOTE | 2021-08-17 08:44 | MHC.CM.ED ---
pt has seen patient and is recommending home c svcs - home PT via [facility]. despite this recommendation, pt does not want a ref. made to [facility] for this. she carmine return home where she lives c her daughter. her son will provide transportation. she has no svcs in the home now. she ambulates c a cane and states she is pain free at the moment. dc plan is home no svcs. , rn in the e.d. are aware of this dc plan. cm to cont. to follow.
--- NOTE | 2021-08-17 09:01 | PC.NURSE ---
The pt is resting in bed alert and oriented x 3, taking PO food and fluids without difficulty. She denies pain at this time and states that she is to be discharged. pt states PT came to room to walk her to the bathroom and I did fine. no pain. She states she feels well enough to go home where she lives with her grandaughter. no chest pain. No SOb. She makes eye contact with Rn and is calm and cooperative. VSS. Pt has taken all AM meds without difficulty. Will prepare for dC.
== END 2021-08-17 10:15 | disposition home or self-care (01) ==
PROVIDERS: Physician Assistant Medical; Emergency Provider Student in an Organized Health Care Education/Training Program; PCP Family Medicine
DX: M51.36 Other intervertebral disc degeneration, lumbar region (principal); M16.10 Unilateral primary osteoarthritis, unspecified hip; I11.0 Hypertensive heart disease with heart failure; I50.22 Chronic systolic (congestive) heart failure; I25.10 Atherosclerotic heart disease of native coronary artery without angina pectoris; I48.0 Paroxysmal atrial fibrillation; Z79.01 Long term (current) use of anticoagulants; Z95.810 Presence of automatic (implantable) cardiac defibrillator
CPT/HCPCS: 36415; 74177; 80053; 81001; 83735; 85025; 85610; 87086; 96361; 96372; 96374; 96375; 97161; 99285; 99291; J2270; J2930; Q9967

== ENCOUNTER 2021-09-17 12:02 | Outpatient (REF) | payer MEDICARE, SELFPAY ==
--- NOTE | ~2021-09-17 | XR_ITS ---
EXAMINATION: XR PELVIS CLINICAL INFORMATION: Pain in unspecified hip. COMPARISON: CT abdomen and pelvis including the hips on 08/15/2021. TECHNIQUE: AP view of the pelvis. FINDINGS: Degenerative changes are present in the lower lumbar spine. Degenerative changes are present in both hips, severe on the left with complete loss of joint space superiorly indicative of degenerative disease. Mild sclerosis and osteophyte formation is present. Much milder changes are noted in the right hip. Surgical clips are present overlying the pubic symphysis at the base of the bladder. XR/XR pelvis 1-2V IMPRESSION: Degenerative changes present in both hips, marked on the left.
== END 2021-09-17 12:03 | disposition home or self-care (01) ==
LOC: HO.HOSX 12:02
PROVIDERS: Visit Provider Orthopaedic Surgery
DX: M16.12 Unilateral primary osteoarthritis, left hip (principal)
CPT/HCPCS: 72170; 99202

== ENCOUNTER 2021-10-01 21:17 | Inpatient (IN) | payer MEDICARE, SELFPAY ==
--- NOTE | ~2021-10-01 | XR_ITS ---
EXAMINATION: XR HIP, LEFT CLINICAL INFORMATION: Pain. COMPARISON: None TECHNIQUE: Frontal view of pelvis. Cone-down AP and oblique view of the left hip of the left hip. FINDINGS: There is a transverse angulated displaced fracture through the subcapital left femoral neck. Distal fracture fragment subluxed superiorly and angulated medial. Femoral head remains seated in the acetabulum. No fracture of the pelvis. There is degenerative change of the inferior sacroiliac joints bilateral. Multilevel degenerative spondylosis of lower lumbar spine. Moderate joint narrowing of the right hip joint. There are 3 small metallic clips in the lower central pelvis. XR/XR hip LT min 2V IMPRESSION: Fracture of left femoral neck.
--- NOTE | ~2021-10-01 | XR_ITS ---
EXAMINATION: XR CHEST CLINICAL INFORMATION: Clearance. COMPARISON: Multiple priors. Most recent chest radiograph dated from 11/25/2019. TECHNIQUE: AP view of the chest was obtained. FINDINGS: Left-sided pacer/AICD with leads projecting over the right atrium, right ventricle and coronary sinus. Unchanged appearance of the cardiomediastinal silhouette. Clear lungs. No large pleural effusion or pneumothorax. No acute osseous findings. Redemonstration of significant degenerative changes in the glenohumeral joints with chronic deformity in both humeral heads. XR/XR chest 1V IMPRESSION: No acute cardiopulmonary findings.
--- NOTE | ~2021-10-01 | XR_ITS ---
EXAMINATION: XR PELVIS CLINICAL INFORMATION: Postoperative COMPARISON: 10/01/2021 TECHNIQUE: AP portable low set view of the pelvis. FINDINGS: There is a new total left hip arthroplasty. The femoral head component articulates appropriately with the acetabular component. No periprosthetic lucency or fracture. The right hip is well aligned. Mild degenerative change noted. Small radiopaque structures overlie the pubic symphysis region. XR/XR pelvis 1-2V IMPRESSION: Total left hip arthroplasty in typical positioning and alignment.
[2021-10-01 21:20] VITALS: BP 149/56; PULSE 75; RESP 18; TEMP 36.6; O2SAT 99; BMI 27.7
[2021-10-01] MEDS: oxyCODONE HCl Immed Release 5 MG TABLET PO (22:22)
--- NOTE | 2021-10-01 22:25 | ECG_ITS ---
Test Reason : LEFT LEG PAIN Blood Pressure : / mmHG Vent. Rate : 066 BPM Atrial Rate : 066 BPM P-R Int : 152 ms QRS Dur : 134 ms QT Int : 492 ms P-R-T Axes : 084 026 074 degrees QTc Int : 515 ms Atrial-sensed ventricular-paced rhythm Abnormal ECG When compared with ECG of 25-NOV-2019 23:54, V pacing now seen. Referred By: Venecia Hoang Electronically Signed By:ABBY WASSERMAN
--- NOTE | 2021-10-01 22:46 | PC.NURSE ---
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
[2021-10-01 22:52] VITALS: BP 146/55; PULSE 67; RESP 14; TEMP 36.8; O2SAT 97
[2021-10-01 22:52] LABS: MANUAL DIFF FLAG NO
[2021-10-01 22:53] LABS: Basophils Percent Auto 0.7 % (0-2); Eosinophils Absolute Auto 0.2 X10*3/uL (0.0-0.4); Eosinophils Percent Auto 4.3 % (0-4); Hemoglobin 9.2 g/dl (12.0-16.0); Imm Gran Abs Auto 0.03 X10*3/uL (0.00-0.03); Imm Gran Pct Auto 0.5 % (0.0-0.4); Lymphocytes Absolute Auto 0.5 X10*3/uL (1.2-4.9); Lymphocytes Percent Auto 9.1 % (20-40); Mean Corpuscular HGB Conc 31.7 g/dl (31.0-35.0); Mean Corpuscular Hemoglobin 32.2 pg (27.0-33.0); Mean Corpuscular Volume 101.4 fL (80.0-98.0); Mean Platelet Volume 8.7 fL (9.4-12.3); Monocytes Absolute Auto 0.7 X10*3/uL (0.1-1.2); Monocytes Percent Auto 12.7 % (2-11); Neutrophils Absolute Auto 4.1 x10*3/uL (2.0-8.3); Neutrophils Percent Auto 72.7 % (45-73); Platelet Count 177 X10*3/uL (160-400); Red Blood Count 2.86 X10*6/uL (4.20-5.50); Red Cell Distribution Width 15.1 % (11.0-16.0); White Blood Count 5.6 X10*3/uL (4.8-10.8)
[2021-10-01 23:17] LABS: Anion Gap 13 (12-20); Blood Urea Nitrogen 21 mg/dL (9-16); Calcium 8.8 mg/dL (8.4-10.2); Carbon Dioxide 25 mmol/L (22-29); Chloride 109 mmol/L (96-108); Creatinine Clr Calc Pharmacy 44.3; Estimated Glomerular Filt Rate 44; Glucose Random 141 mg/dL (60-115); Potassium 4.6 mmol/L (3.3-5.1); Sodium 142 mmol/L (135-145)
--- NOTE | 2021-10-01 23:48 | ED_ITS ---
HPI - Extremity Problem General Chief complaint: Extremity Problem Stated complaint: left hip pain Time Seen by Provider: 10/01/21 21:29 Source: patient Mode of arrival: ambulatory History of Present Illness HPI Narrative: 71-year-old female with a past medical history CAD, cardiomyopathy, pacemaker, systolic heart failure, HTN, LBBB, AFib on Eliquis, presenting to the ED complaining of acute on chronic left hip pain times a few days with inability to ambulate. Denies known injury, trauma, fall. Reports was recently seen in orthopedic office by Dr. Barron and scheduled for hip replacement on 10/27. Denies numbness, tingling, weakness. MD Complaint: extremity pain Onset (ago): day(s) Pain Consistency: constant Location: left Radiation: none Relieving factors: immobilization Exacerbating factors: range of motion, walking and palpation Related Data Home Medications Medication Instructions Recorded Confirmed atorvastatin 20 mg tablet 20 mg PO DAILY 08/15/20 08/16/21 loratadine 10 mg tablet 10 mg PO DAILY 08/15/20 08/16/21 omeprazole 20 mg capsule,delayed 20 mg PO DAILY 08/15/20 08/16/21 release tramadol 50 mg tablet 100 mg PO TID 08/15/20 08/16/21 clonazepam 2 mg tablet 2 mg PO BEDTIME tab 07/09/21 08/16/21 furosemide 20 mg tablet 20 mg PO DAILY PRN tab 07/09/21 08/16/21 cephalexin 250 mg capsule 250 mg PO TID 08/16/21 08/16/21 cholecalciferol (vitamin D3) 25 25 mcg PO DAILY 08/16/21 08/16/21 mcg (1,000 unit) tablet (Vitamin D3) methocarbamol 500 mg tablet 1 tab PO TID PRN 08/16/21 08/16/21 multivitamin 1 tab PO DAILY 08/16/21 08/16/21 polyethylene glycol 3350 17 gram 17 g PO DAILY 08/16/21 08/16/21 oral powder packet (Purelax) prednisone 10 mg tablet See Taper PO DAILY 08/16/21 08/16/21 Previous Rx's Medication Instructions Recorded valsartan 160 mg tablet 160 mg PO DAILY 90 Days #90 tab 06/01/21 apixaban 5 mg tablet (Eliquis) 5 mg PO BID 30 Days #60 tab 06/05/21 amiodarone 200 mg tablet 100 mg PO DAILY #30 tab 09/30/21 carvedilol 12.5 mg tablet 12.5 mg PO BID 90 Days #180 tab 10/01/21 Allergies Allergy/AdvReac Type Severity Reaction Status Date / Time levofloxacin [From LEVAQUIN] Allergy Intermediate RASH Verified 08/15/21 11:09 Darvocet-N 50 Allergy Mild hives Uncoded 08/15/21 11:09 Sulfacet-R Allergy Unknown gi Uncoded 06/24/20 00:00 Review of Systems Review of Systems: Constitutional:No Fever, No Chills, No Fatigue, No Malaise ENT/Mouth: No Ear Pain, No Nasal Congestion, No sore throat Eyes: No Eye Pain, No Swelling, No Redness Cardiovascular: No Chest Pain, No SOB, No Orthopnea, No Edema, No Palpitations Respiratory: No Cough, No Dyspnea Gastrointestinal: No Nausea, No Vomiting, No Diarrhea, No Constipation, No Abdominal pain Genitourinary: No Dysuria, No Urinary Frequency, No Hematuria,No Hesitancy Musculoskeletal: + joint pain, No Myalgias, No Joint Swelling Skin: No Skin Lesions, No rash Neuro: No Weakness, No Numbness, No Paresthesias, No Headache Yes all other systems are reviewed and are negative [facility] Past Medical History Attestation statement: The following information was validated with the patient. Medical History Biventricular ICD (implantable cardioverter-defibrillator) in place (~04/2020) CAD (coronary artery disease) Cardiomyopathy Chronic systolic heart failure HTN (hypertension) LBBB (left bundle branch block) Paroxysmal atrial fibrillation Surgical History History of permanent cardiac pacemaker placement Hx of hernia repair Family History Family History Father Cancer Mother No problems noted. Social History Social History Alcohol intake: never Patient Tobacco Use Status: Never used Tobacco Advance Directives: No Physical Exam Vital Signs: Vital Signs: Last Vital Signs Temp 98.2 F 10/01/21 22:52 Pulse 71 10/02/21 01:32 Resp 12 10/02/21 01:32 BP 136/47 L 10/02/21 01:32 Pulse Ox 98 10/02/21 01:32 BMI result Body Mass Index 27.7 Const: General: cooperative and healthy appearing Orientation/consciousness: patient oriented x3 Limitations: no limitations HENMT: Head: Yes normal to inspection Ears: hearing grossly normal bilaterally General nose exam: Normal external nose present Face and sinus: Yes normal facial exam Eyes: General: appearance normal, both eyes and all related structures EOM: EOMs intact bilaterally Neck: Neck: Yes normal visual inspection and Yes no meningeal signs Resp: Effort & Inspection: normal respiratory effort Auscultation: clear to auscultation bilaterally, no rales, no rhonchi and no wheezes Cardio: Rate: regular rate Heart sounds: S1 normal heart sound present and S2 normal heart sound present GI: Inspection: Yes normal to inspection Palpation (GI): Soft to palpation, nontender, no guarding and not rigid Skin: Rashes: no rashes Wounds: no wounds Neuro: General: patient oriented x3, tone normal and no meningeal signs Extrem: Other: Left hip with tenderness to palpation, no appreciable deformity. Decreased active ROM. Passive ROM eliciting pain. NV intact distally General: Yes normal to inspection Course Course Course Narrative: XR hip LT min 2V IMPRESSION: Fracture of left femoral neck > orthopedics consulted. Will obtain EKG, CXR, and labs for clearance -case discussed with orthopedics Dr. Franklin will admit patient to medicine -0005--patient admitted to hospitalist service for further management MDM - Extremity (Nontraumatic) MDM Narrative Medical decision making narrative: 71-year-old female with a past medical history CAD, cardiomyopathy, pacemaker, systolic heart failure, HTN, LBBB, AFib on Eliquis, presenting to the ED complaining of acute on chronic left hip pain times a few days with inability to ambulate. On exam vital signs stable, NAD, appears in pain, physical exam as above. Concern for hip fracture vs acute on chronic osteoarthritic pain. Low concern for septic joint/arthritis Plan: X-rays Medical Records Attestation: I reviewed the patient's medical records. Lab Data Attestation: I reviewed the patient's lab results. Result diagrams: 10/01/21 22:48 10/01/21 22:48 Labs: Lab Results 10/01/21 10/01/21 Range/Units 22:48 22:48 WBC 5.6 (4.8-10.8) X10*3/uL RBC 2.86 L (4.20-5.50) X10*6/uL Hgb 9.2 L (12.0-16.0) g/dl Hct 29.0 L (37.0-47.0) % MCV 101.4 H (80.0-98.0) fL MCH 32.2 (27.0-33.0) pg MCHC 31.7 (31.0-35.0) g/dl RDW 15.1 (11.0-16.0) % Plt Count 177 (160-400) X10*3/uL MPV 8.7 L (9.4-12.3) fL Immature Gran % (Auto) 0.5 H (0.0-0.4) % Neut % (Auto) 72.7 (45-73) % Lymph % (Auto) 9.1 L (20-40) % [place] % (Auto) 12.7 H (2-11) % Eos % (Auto) 4.3 H (0-4) % Baso % (Auto) 0.7 (0-2) % Lymph # (Auto) 0.5 L (1.2-4.9) X10*3/uL [place] # (Auto) 0.7 (0.1-1.2) X10*3/uL Eos # (Auto) 0.2 (0.0-0.4) X10*3/uL Baso # (Auto) 0.0 (0.0-0.2) X10*3/uL Abs Immat Gran (auto) 0.03 (0.00-0.03) X10*3/uL Absolute Neuts (auto) 4.1 (2.0-8.3) x10*3/uL Absolute Nucleated RBC 0.000 (0.0-0.012) X10*3/uL Nucleated RBC % (auto) 0.0 (0.0-0.2) /100WBC Sodium 142 (135-145) mmol/L Potassium 4.6 (3.3-5.1) mmol/L Chloride 109 H (96-108) mmol/L Carbon Dioxide 25 (22-29) mmol/L Anion Gap 13 (12-20) BUN 21 H (9-16) mg/dL Creatinine 1.21 (0.5-1.4) mg/dL Estim Creat Clear Calc 44.3 Estimated GFR 44 Random Glucose 141 H (60-115) mg/dL Calcium 8.8 (8.4-10.2) mg/dL ECG Data Attestation EKG: I personally reviewed and interpreted this ECG as follows: ECG interpretation date: 10/01/21 ECG interpretation time: 22:39 Interpretation: EKG atrial ventricular paced at a rate of 66. Pr interval 152. QTC 515 Discharge Plan Discharge Clinical Impression: Left displaced femoral neck fracture Patient Disposition: Admitted As Inpatient
[2021-10-02] VITALS (12 sets, daily range): BP systolic 98–141; BP diastolic 38–57; PULSE 60–71; RESP 12–18; TEMP 36.6–36.8; O2SAT 94–99
--- NOTE | 2021-10-02 00:20 | PM.IMHP ---
History of Present Illness Date of Service: 10/02/21 Chief Complaint: hip pain 71-year-old female with past medical history of cardiomyopathy status post biventricular ICD, CAD, history of permanent cardiac pacemaker, HTN, LBBB, paroxysmal AFib presents to the hospital with worsening left hip pain. Patient reports that she has history of arthritis, and has had chronic right hip pain that started about 3 months ago, has been worsened over the past few weeks, she so the orthopedic surgeon about 2 weeks ago and was scheduled to have a left hip replacement on the 19 of October. Patient reports that today she noticed that she has been dragging her leg due to the significant pain, unable to move her left hip at all, she tried to get into bed, and was unable to move her hip or her left leg and therefore decided to come to the hospital. She denies any trauma, no fall, no injury, she denies having slipped or injured her hip in any way. On arrival to the ED patient hemodynamically stable with no significant abnormal vitals Labs are significant for WBC count of 5.6, hemoglobin of 9.2 with a baseline around 10.3, hematocrit 29, BUN of 21, creatinine of 1.21 which is increased from her baseline, UA negative, COVID-19 negative. Hip x-ray done in the ED shows fracture of the left femoral neck orthopedic consult and patient will be admitted for further management Review of Systems Review of Systems: Yes all other systems are reviewed and are negative [facility] Medical History Biventricular ICD (implantable cardioverter-defibrillator) in place (~04/2020) CAD (coronary artery disease) Cardiomyopathy Chronic systolic heart failure HTN (hypertension) LBBB (left bundle branch block) Paroxysmal atrial fibrillation Family History Father Cancer Mother No problems noted. Surgical History History of permanent cardiac pacemaker placement Hx of hernia repair Social History Alcohol intake: never Patient Tobacco Use Status: Never used Tobacco Advance Directives: No Meds Allergies Allergy/AdvReac Type Severity Reaction Status Date / Time levofloxacin [From LEVAQUIN] Allergy Intermediate RASH Verified 08/15/21 11:09 Darvocet-N 50 Allergy Mild hives Uncoded 08/15/21 11:09 Sulfacet-R Allergy Unknown gi Uncoded 06/24/20 00:00 Active Medications: Current Medications Pharmacy Consult (Consult Rx Perform Med Rec) 1 each MISCELLANE ONCE PRN PRN Reason: Consult order Home Medications Medication Instructions Recorded Confirmed Last Taken Type atorvastatin 20 mg tablet 20 mg PO DAILY 08/15/20 10/02/21 10/01/21 21:00 History loratadine 10 mg tablet 10 mg PO DAILY 08/15/20 10/02/21 10/01/21 09:00 History omeprazole 20 mg capsule,delayed 20 mg PO DAILY 08/15/20 10/02/21 10/01/21 09:00 History release tramadol 50 mg tablet 100 mg PO TID 08/15/20 10/02/21 10/01/21 21:00 History clonazepam 2 mg tablet 2 mg PO BEDTIME PRN tab 07/09/21 10/02/21 09/30/21 21:00 History furosemide 20 mg tablet 20 mg PO DAILY PRN tab 07/09/21 10/02/21 08/14/21 History cholecalciferol (vitamin D3) 25 25 mcg PO BID 08/16/21 10/02/21 10/01/21 21:00 History mcg (1,000 unit) tablet (Vitamin D3) multivitamin 1 tab PO DAILY 08/16/21 10/02/21 10/01/21 09:00 History polyethylene glycol 3350 17 gram 17 g PO DAILY 08/16/21 10/02/21 09/30/21 09:00 History oral powder packet (Purelax) celecoxib 100 mg capsule 1 cap PO BID 10/02/21 10/02/21 10/01/21 21:00 History valsartan 160 mg tablet 80 mg PO DAILY 10/02/21 10/02/21 10/01/21 09:00 History Physical Exam Vital Signs and Narrative: Vital Signs: Last Vital Signs Temp 98.2 F 10/01/21 22:52 Pulse 67 10/01/21 22:52 Resp 14 10/01/21 22:52 BP 146/55 H 10/01/21 22:52 Pulse Ox 97 10/01/21 22:52 BMI result Body Mass Index 27.7 Const: General: cooperative and no acute distress Orientation/consciousness: patient oriented x3 Eyes: General: appearance normal, both eyes and all related structures Pupils: Equal, round and reactive pupils present Resp: Effort & Inspection: normal respiratory effort Auscultation: clear to auscultation bilaterally Cardio: Rate: regular rate Rhythm: regular rhythm GI: Palpation (GI): Soft to palpation Auscultation: normal bowel sounds Skin: General skin exam: no rashes or lesions noted Neuro: General: patient oriented x3 Cranial nerves: Yes Equal, round and reactive pupils present Cognition (Neuro): normal cognition Extrem: Other: left leg externally rotated General: Yes no pedal edema Results Labs CBC and Chem 7: 10/01/21 22:48 10/01/21 22:48 Labs: Laboratory Results - last 24 hr 10/01/21 12 22:48 22:48 MCV 101.4 H MCH 32.2 MCHC 31.7 RDW 15.1 Plt Count 177 MPV 8.7 L Immature Gran % (Auto) 0.5 H Neut % (Auto) 72.7 Lymph % (Auto) 9.1 L [place] % (Auto) 12.7 H Eos % (Auto) 4.3 H Baso % (Auto) 0.7 Lymph # (Auto) 0.5 L [place] # (Auto) 0.7 Eos # (Auto) 0.2 Baso # (Auto) 0.0 Abs Immat Gran (auto) 0.03 Absolute Neuts (auto) 4.1 Absolute Nucleated RBC 0.000 Nucleated RBC % (auto) 0.0 Anion Gap 13 Estim Creat Clear Calc 44.3 Estimated GFR 44 Random Glucose 141 H Calcium 8.8 Imaging Radiologist's Impressions: Impressions Hip X-Ray 10/01/21 22:00 IMPRESSION: Fracture of left femoral neck. Assessment and Plan (1) Left displaced femoral neck fracture: Status: Acute (2) Osteoarthritis of left hip: Status: Acute this is a 71-year-old female with past medical history of osteoarthritis presents to the hospital with complaints of left hip pain found to have left femoral fracture # left femoral neck fracture - nontraumatic - orthopedics consulted - patient on Eliquis at home, will stop her Eliquis # history of CHF - not in exacerbation - will continue furosemide # coronary artery disease - continue carvedilol, statin, # A fib - Hold eliquis - continue carvedilol DVT prophylaxis: SCDs Quality Stroke Does the patient have a stroke diagnosis?: No VTE Prior VTE?: No VTE Risk Level:: Medical - moderate - high VTE Device Contraindication: Treatment Not Indicated VTE Drug Contraindication: N/A - Med Ordered
[2021-10-02 02:18] LABS: COVID-19 Test Negative (Negative)
[2021-10-02 03:32] LABS: Appearance Urine CLEAR; Color Urine YELLOW; Glucose Urine UA NEG (NEG); Leukocyte Esterase Urine NEG (NEG); Nitrite Urine NEG (NEG); Specific Gravity - Urine 1.025 (1.005-1.025); Urine Blood NEG (NEG); Urine Ketones NEG (NEG); Urine Protein NEG (NEG-TRACE)
[2021-10-02] MEDS: Morphine Sulfate 4 MG/ML CARTRIDGE IVPUSH (03:43)
--- NOTE | 2021-10-02 08:05 | PM.CNOR ---
History of Present Illness HPI Consult date: 10/02/21 Chief complaint: Hip Fracture Narrative: This is a 71 yo female who is known to our office for left hip OA. She presented to the ED late last night due to worsening left hip pain and inability to ambulate. She is pending LT ROSY 10/[address] Franklin. She states since she was last seen in our office on 09/17/21 she has been experiencing worsening hip pain and yesterday when she was getting up from the commode she felt something give way and she was close to her bed so she slowly walked to the bed but was unable to lift the leg to get on to the bed. She called her PCP who instructed she go to the ED for eval. She called her granddaughter who transported her to the ED. While in the ED, xrays revealed an acute femoral neck fracture. She was admitted to the medical service and Orthopedics was consulted for further recommendations. She is on Eliquise, s/p pacemaker placement two years ago with Dr Swanson. She states her last dose of Eliquis was last night. She takes it twice a day. Review of Systems Review of Systems: Yes all other systems are reviewed and are negative [facility] Past Medical History Medical History Biventricular ICD (implantable cardioverter-defibrillator) in place (~04/2020) CAD (coronary artery disease) Cardiomyopathy Chronic systolic heart failure HTN (hypertension) LBBB (left bundle branch block) Paroxysmal atrial fibrillation Family History Family History Father Cancer Mother No problems noted. Surgical History Surgical History History of permanent cardiac pacemaker placement Hx of hernia repair Social History Social History Alcohol intake: never Patient Tobacco Use Status: Never used Tobacco Use of substances other than those prescribed or required for medical reasons: No Advance Directives: No Meds Allergies Allergy/AdvReac Type Severity Reaction Status Date / Time levofloxacin [From LEVAQUIN] Allergy Intermediate RASH Verified 08/15/21 11:09 Darvocet-N 50 Allergy Mild hives Uncoded 08/15/21 11:09 Sulfacet-R Allergy Unknown gi Uncoded 06/24/20 00:00 Active Medications: Current Medications Amiodarone HCl (Amiodarone Hcl 200 Mg Tablet) 100 mg PO DAILY [facility] Atorvastatin Calcium (Atorvastatin Calcium 20 Mg Tablet) 20 mg PO BEDTIME [facility] Carvedilol (Carvedilol 12.5 Mg Tablet) 12.5 mg PO BID [facility]; Protocol Clonazepam (Clonazepam 1 Mg Tablet) 2 mg PO BEDTIME PRN PRN Reason: Restless Leg(S) Furosemide (Furosemide 20 Mg Tablet) 20 mg PO DAILY PRN; Protocol PRN Reason: Edema Lactated Ringer's (Lr) 1,000 mls @ 80 mls/hr IVCONT .[id number] [facility] Loratadine (Loratadine 10 Mg Tablet) 10 mg PO DAILY [facility] Morphine Sulfate (Morphine Sulfate 2 Mg/Ml Cartridge) 1 mg IVPUSH Q4H PRN; Protocol PRN Reason: Pain, Mild (Pain Scale 1-3) Multivitamins/Vitamin C (Multivitamin Tablet) 1 tab PO DAILY [facility] Omeprazole (Omeprazole 20 Mg Capsule.Dr) 20 mg PO DAILY@0630 [facility] Pharmacy Consult (Consult Rx Perform Med Rec) 1 each MISCELLANE ONCE PRN PRN Reason: Consult order Polyethylene Glycol (Polyethylene Glycol 3350 17 Gm Powd.Pack) 17 gm PO DAILY [facility] Sodium Chloride (0.9 % Sodium Chloride Flush 3 Ml Syringe) 3 ml IVFLUSH QSHIFT [facility] Tramadol HCl (Tramadol Hcl 50 Mg Tablet) 100 mg PO TID [facility] Valsartan (Valsartan 80 Mg Tablet) 80 mg PO DAILY [facility]; Protocol Home Medications Medication Instructions Recorded Confirmed Last Taken Type atorvastatin 20 mg tablet 20 mg PO DAILY 08/15/20 10/02/21 10/01/21 21:00 History loratadine 10 mg tablet 10 mg PO DAILY 08/15/20 10/02/21 10/01/21 09:00 History omeprazole 20 mg capsule,delayed 20 mg PO DAILY 08/15/20 10/02/21 10/01/21 09:00 History release tramadol 50 mg tablet 100 mg PO TID 08/15/20 10/02/21 10/01/21 21:00 History clonazepam 2 mg tablet 2 mg PO BEDTIME PRN tab 07/09/21 10/02/21 09/30/21 21:00 History furosemide 20 mg tablet 20 mg PO DAILY PRN tab 07/09/21 10/02/21 08/14/21 History cholecalciferol (vitamin D3) 25 25 mcg PO BID 08/16/21 10/02/21 10/01/21 21:00 History mcg (1,000 unit) tablet (Vitamin D3) multivitamin 1 tab PO DAILY 08/16/21 10/02/21 10/01/21 09:00 History polyethylene glycol 3350 17 gram 17 g PO DAILY 08/16/21 10/02/21 09/30/21 09:00 History oral powder packet (Purelax) celecoxib 100 mg capsule 1 cap PO BID 10/02/21 10/02/21 10/01/21 21:00 History valsartan 160 mg tablet 80 mg PO DAILY 10/02/21 10/02/21 10/01/21 09:00 History Physical Exam Vital Signs: Vital Signs: Last Vital Signs Temp 98.2 F 10/02/21 07:36 Pulse 67 10/02/21 07:36 Resp 18 10/02/21 07:36 BP 124/45 L 10/02/21 07:36 Pulse Ox 98 10/02/21 07:36 BMI result Body Mass Index 27.7 Const: General: cooperative and no acute distress Orientation/consciousness: patient oriented x3 Resp: Effort & Inspection: normal respiratory effort and able to speak in complete sentences Cardio: Peripheral pulses: Peripheral pulses 2+ throughout Neuro: General: patient oriented x3 Extrem: Other: Left hip skin intact, sensation intact to touch and she has pain with leg roll. Unable to SLR. Pulses present. Results Labs Result Diagrams: 10/01/21 22:48 10/01/21 22:48 Labs: Abnormal lab results 10/01/21 10/01/21 Range/Units 22:48 22:48 RBC 2.86 L (4.20-5.50) X10*6/uL Hgb 9.2 L (12.0-16.0) g/dl Hct 29.0 L (37.0-47.0) % MCV 101.4 H (80.0-98.0) fL MPV 8.7 L (9.4-12.3) fL Immature Gran % (Auto) 0.5 H (0.0-0.4) % Lymph % (Auto) 9.1 L (20-40) % [place] % (Auto) 12.7 H (2-11) % Eos % (Auto) 4.3 H (0-4) % Lymph # (Auto) 0.5 L (1.2-4.9) X10*3/uL Chloride 109 H (96-108) mmol/L BUN 21 H (9-16) mg/dL Random Glucose 141 H (60-115) mg/dL H & H 10/01/21 Range/Units 22:48 Hgb 9.2 L (12.0-16.0) g/dl Hct 29.0 L (37.0-47.0) % All other labs normal. Assessment and Plan (1) Left displaced femoral neck fracture: Status: Acute I discussed the case with Dr Franklin and explained the extent of the injury to the patient and options available which include surgical intervention. I explained the procedure in detail along with the length of recovery and rehab course. I explained the risk, benefits and alternatives. Risk including, but not limited to infection, blood clots, bleeding, non union or malunion and nerve/tissue damage to surrounding areas. I answered all their questions and with their understanding they have consented to move forward with Operative Fixation of the left hip . The patient will be T&S, med clearance and cardiac clearance obtained. Procedures Date of Service Date of Service: 10/02/21
--- NOTE | 2021-10-02 08:41 | PC.RT ---
Patient not on 98 Oxygen flow rate for last set of vitals
[2021-10-02] MEDS: Multivitamin TABLET 1 TAB PO (08:47)
[2021-10-02] MEDS: Loratadine 10 MG TABLET PO (08:48)
[2021-10-02] MEDS: traMADoL HCL 50 MG TABLET 100 MG PO ×3 (08:48→20:54)
[2021-10-02] MEDS: carvediloL 12.5 MG TABLET PO (08:48)
[2021-10-02] MEDS: Amiodarone HCL 200 MG TABLET 100 MG PO (08:49)
[2021-10-02] MEDS: Omeprazole 20 MG CAPSULE.DR PO (08:49)
[2021-10-02] MEDS: polyethylene glycoL 3350 17 GM POWD.PACK PO (08:50)
[2021-10-02] MEDS: 0.9 % Sodium Chloride Flush 3 ML SYRINGE IVFLUSH ×2 (08:58→18:01)
[2021-10-02] MEDS: Lactated Ringers 1,000 ML 80 ML IVCONT (08:58)
--- NOTE | 2021-10-02 09:04 | PC.NURSE ---
pt seen by dr. trivedi, pt aware of plan of care for admission to hosp.
--- NOTE | 2021-10-02 09:10 | PC.NURSE ---
iv lr d/c'd per dr. trivedi. pt is eating.
--- NOTE | 2021-10-02 09:53 | PHA.MEDREC ---
Pharmacy Consult ? Medication Reconciliation Pharmacy has reviewed the medication reconciliation by berhane. Patient is reports that she beleive Dr. Cesar decrease her dose of valsartan to 1/2 tablet. Per 2020 note, she is to continue the 160 mg. She reports that even though she think he may have said that, she still take 1 tablet. The only tablet she cuts in half is the amiodarone. Ly Ugalde, ElíasD
--- NOTE | 2021-10-02 10:06 | P.CONCA_ITS ---
History of Present Illness History of Present Illness Date of Service: 10/02/21 Chief complaint: Hip Fracture Narrative: This is a cardiology consultation regarding preoperative risk stratif ication for hip surgery. Patient has multiple comorbidities including cardiomyopathy, Bi V AICD, coronary disease, atrial fibrillation among others. Currently, she is admitted with left femoral neck fracture and pending surgery. Presentation is due to worsening left hip pain and inability to ambulate. She felt as though something was giving way and unable to lift the leg and that led to ER visit. Otherwise, from the cardiac standpoint she has been fairly stable. Minimal ambulation at baseline. However within limits of what she can do, has not noticed any anginal-type symptoms or shortness of breath or in fact anything cardiac at all. She is on Eliquis for anticoagulation. Review of Systems Review of Systems: Yes all other systems are reviewed and are negative Cardiovascular: Cardiovascular: Reports as per HPI, Reports no additional cardiovascular complaints, Denies acrocyanosis, Denies cool extremities, Denies painful fingertips, Denies chest pain, Denies chest pain at rest, Denies diaphoresis, Denies syncope, Denies irregular heart rhythm, Denies claudication, Denies leg edema, Denies lightheadedness, Denies palpitations and Denies dyspnea Respiratory: Respiratory: Denies dyspnea Neurologic: Denies syncope Endocrine: Endocrine: Denies palpitations PMF Past Medical History Medical History Biventricular ICD (implantable cardioverter-defibrillator) in place (~04/2020) CAD (coronary artery disease) Cardiomyopathy Chronic systolic heart failure HTN (hypertension) LBBB (left bundle branch block) Paroxysmal atrial fibrillation Family History Family History Father Cancer Mother No problems noted. Surgical History Surgical History History of permanent cardiac pacemaker placement Hx of hernia repair Social History Social History Alcohol intake: never Patient Tobacco Use Status: Never used Tobacco Use of substances other than those prescribed or required for medical reasons: No Advance Directives: No Meds Allergies Allergy/AdvReac Type Severity Reaction Status Date / Time levofloxacin [From LEVAQUIN] Allergy Intermediate RASH Verified 08/15/21 11:09 Darvocet-N 50 Allergy Mild hives Uncoded 08/15/21 11:09 Sulfacet-R Allergy Unknown gi Uncoded 06/24/20 00:00 Active Medications: Current Medications Amiodarone HCl (Amiodarone Hcl 200 Mg Tablet) 100 mg PO DAILY [facility] Last Admin: 10/02/21 08:49 Dose: 100 mg Documented by: Atorvastatin Calcium (Atorvastatin Calcium 20 Mg Tablet) 20 mg PO BEDTIME AMANDA Carvedilol (Carvedilol 3.125 Mg Tablet) 6.25 mg PO BID [facility]; Protocol Clonazepam (Clonazepam 1 Mg Tablet) 2 mg PO BEDTIME PRN PRN Reason: Restless Leg(S) Furosemide (Furosemide 20 Mg Tablet) 20 mg PO DAILY PRN; Protocol PRN Reason: Edema Loratadine (Loratadine 10 Mg Tablet) 10 mg PO DAILY [facility] Last Admin: 10/02/21 08:48 Dose: 10 mg Documented by: Morphine Sulfate (Morphine Sulfate 2 Mg/Ml Cartridge) 1 mg IVPUSH Q4H PRN; Protocol PRN Reason: Pain, Mild (Pain Scale 1-3) Multivitamins/Vitamin C (Multivitamin Tablet) 1 tab PO DAILY [facility] Last Admin: 10/02/21 08:47 Dose: 1 tab Documented by: Omeprazole (Omeprazole 20 Mg Capsule.Dr) 20 mg PO DAILY@0630 [facility] Last Admin: 10/02/21 08:49 Dose: 20 mg Documented by: Pharmacy Consult (Consult Rx Perform Med Rec) 1 each MISCELLANE ONCE PRN PRN Reason: Consult order Polyethylene Glycol (Polyethylene Glycol 3350 17 Gm Powd.Pack) 17 gm PO DAILY [facility] Last Admin: 10/02/21 08:50 Dose: 17 gm Documented by: Sodium Chloride (0.9 % Sodium Chloride Flush 3 Ml Syringe) 3 ml IVFLUSH QSHIFT [facility] Last Admin: 10/02/21 08:58 Dose: 3 ml Documented by: Tramadol HCl (Tramadol Hcl 50 Mg Tablet) 100 mg PO TID [facility] Last Admin: 10/02/21 08:48 Dose: 100 mg Documented by: Valsartan (Valsartan 160 Mg Tablet) 160 mg PO DAILY [facility]; Protocol Home Medications Medication Instructions Recorded Confirmed Last Taken Type atorvastatin 20 mg tablet 20 mg PO DAILY 08/15/20 10/02/21 10/01/21 21:00 History loratadine 10 mg tablet 10 mg PO DAILY 08/15/20 10/02/21 10/01/21 09:00 History omeprazole 20 mg capsule,delayed 20 mg PO DAILY 08/15/20 10/02/21 10/01/21 09:00 History release tramadol 50 mg tablet 100 mg PO TID 08/15/20 10/02/21 10/01/21 21:00 History clonazepam 2 mg tablet 2 mg PO BEDTIME PRN tab 07/09/21 10/02/21 09/30/21 21:00 History furosemide 20 mg tablet 20 mg PO Q48H PRN tab 07/09/21 10/02/21 08/14/21 History cholecalciferol (vitamin D3) 25 25 mcg PO BID 08/16/21 10/02/21 10/01/21 21:00 History mcg (1,000 unit) tablet (Vitamin D3) multivitamin 1 tab PO DAILY 08/16/21 10/02/21 10/01/21 09:00 History polyethylene glycol 3350 17 gram 17 g PO DAILY 08/16/21 10/02/21 09/30/21 09:00 History oral powder packet (Purelax) celecoxib 100 mg capsule 1 cap PO BID 10/02/21 10/02/21 10/01/21 21:00 History valsartan 160 mg tablet 160 mg PO DAILY 10/02/21 10/02/21 10/01/21 09:00 History Physical Exam Vital Signs: Vital Signs: Last Vital Signs Temp 98.1 F 10/02/21 10:03 Pulse 67 10/02/21 10:03 Resp 12 10/02/21 10:03 BP 131/44 L 10/02/21 10:03 Pulse Ox 99 10/02/21 10:03 BMI result Body Mass Index 27.7 Const: General: cooperative and no acute distress HENMT: Other: Unremarkable Neck: Neck: Yes normal visual inspection Chest: Chest palpation & inspection: normal inspection of the chest Resp: Auscultation: clear to auscultation bilaterally, no crackles and no wheezes Cardio: Jugular venous distension: no JVD Palpation: normal PMI Heart sounds: S1 normal heart sound present, S2 normal heart sound present, no gallops, Murmur heart sound present (2/6 DILLAN aortic area and rest of precordium) and no rubs GI: Palpation (GI): Soft to palpation Back/Spine/Pelvis: Other: unremarkable Skin: General skin exam: no rashes or lesions noted Neuro: Cranial nerves: Yes Other cranial nerve findings present Extrem: General: Yes no clubbing, cyanosis or edema Psych: Mental Status: other Objective Labs and Meds Result diagrams: 10/01/21 22:48 10/01/21 22:48 Lab results: Laboratory Results - last 24 hr 10/01/21 10/01/21 10/02/21 22:48 22:48 01:59 WBC 5.6 RBC 2.86 L Hgb 9.2 L Hct 29.0 L MCV 101.4 H MCH 32.2 MCHC 31.7 RDW 15.1 Plt Count 177 MPV 8.7 L Immature Gran % (Auto) 0.5 H Neut % (Auto) 72.7 Lymph % (Auto) 9.1 L Crow[place] % (Auto) 12.7 H Eos % (Auto) 4.3 H Baso % (Auto) 0.7 Lymph # (Auto) 0.5 L [place] # (Auto) 0.7 Eos # (Auto) 0.2 Baso # (Auto) 0.0 Abs Immat Gran (auto) 0.03 Absolute Neuts (auto) 4.1 Absolute Nucleated RBC 0.000 Nucleated RBC % (auto) 0.0 Sodium 142 Potassium 4.6 Chloride 109 H Carbon Dioxide 25 Anion Gap 13 BUN 21 H Creatinine 1.21 Estim Creat Clear Calc 44.3 Estimated GFR 44 Random Glucose 141 H Calcium 8.8 Urine Color Urine Appearance Urine pH Ur Specific [place] Urine Protein Urine Glucose (UA) Urine Ketones Urine Blood Urine Nitrite Ur Leukocyte Esterase COVID-19 (DIMPLE) Negative COVID-19 Clin Com See Note 10/02/21 03:22 WBC RBC Hgb Hct MCV MCH MCHC RDW Plt Count MPV Immature Gran % (Auto) Neut % (Auto) Lymph % (Auto) [place] % (Auto) Eos % (Auto) Baso % (Auto) Lymph # (Auto) [place] # (Auto) Eos # (Auto) Baso # (Auto) Abs Immat Gran (auto) Absolute Neuts (auto) Absolute Nucleated RBC Nucleated RBC % (auto) Sodium Potassium Chloride Carbon Dioxide Anion Gap BUN Creatinine Estim Creat Clear Calc Estimated GFR Random Glucose Calcium Urine Color YELLOW Urine Appearance CLEAR Urine pH 6.0 Ur Specific [place] 1.025 Urine Protein NEG Urine Glucose (UA) NEG Urine Ketones NEG Urine Blood NEG Urine Nitrite NEG Ur Leukocyte Esterase NEG COVID-19 (DIMPLE) COVID-19 Clin Com ECG Interpretation: EKG shows atrial sensed ventricular paced rhythm at 66/Min. Imaging Radiologist's impression: Impressions Hip X-Ray 10/01/21 22:00 IMPRESSION: Fracture of left femoral neck. Chest X-Ray 10/02/21 00:18 IMPRESSION: No acute cardiopulmonary findings. Assessment and Plan (1) Pre-operative cardiovascular examination: Status: Inactive (2) Cardiomyopathy: Status: Acute (3) Biventricular ICD (implantable cardioverter-defibrillator) in place: Status: Acute (4) Paroxysmal atrial fibrillation: Status: Acute (5) LBBB (left bundle branch block): Status: Acute (6) Left displaced femoral neck fracture: Status: Acute Recent office notes reviewed. 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 In the past, her LVEF on echo had been as much as 25-30% but most recently, 50-55%. Otherwise noted have early aortic stenosis and mild mitral regurgitation and small to moderate pericardial effusion. Overall, she is fairly stable from cardiac. With regard to the proposed hip surgery, may proceed as planned. Due to the multiple cardiac comorbidities, risk is considered at least intermediate. May hold Eliquis as needed for the procedure. However continue other medications without interruptions. ICD-Bi V ICD last checked in July. Total ventricular pacing 98%. No therapies delivered. Battery life almost 8 years. [employer]. Procedures Date of Service Date of Service: 10/02/21
--- NOTE | 2021-10-02 11:29 | MHC.CM.PN ---
CM MET WITH PT WHO REPORTS SHE LIVES AT HOME AND HER GRAND DAUGHTER LIVES WITH HER PT REPORTS SHE HAS NO HOME SERVICES AND HAS BEEN INDEPENDENT UP UNTIL VERY RECENTLY PT REPORTS SHE HAS A CANE, WALKER AND BEDSIDE COMMODE AT HOME PT CONFIRMS HER PCP IS YEY[facility] TONEY PT REPORTS SHE HAS A HCP IMM DELIVERED AND A COPY WAS SENT TO [facility] PT IS SCHEDULED TO HAVE SURGERY TUESDAY AND IS AWARE SHE WILL LIKELY NEED STR. PT REQUESTING A REFERRAL TO [facility] PT ALSO REQUESTING A REFERRAL TO [facility] TO ASSIST WITH [place] APPLICATION REFERRALS FOR BOTH SENT
--- NOTE | 2021-10-02 13:45 | PM.EVENT ---
Event Note Date of Service: 10/03/21 Event Note: Patient came with the fracture. seen and examined this morning by hospitalist team . seen again- says has hip pain left-sided. Denies any new complaint of chest pain or shortness of breath or abdominal pain or fever or chills or nausea or vomiting Denies any cough Denies any weakness or numbness. physical exam: Unchanged from H&P. assessment plan: left hip fx: pain control-morphine iv morphine Patient was on Eliquis , last dose was in the night- ortho will planned procedure around Tuesday. hx cad/cmp/ch systolic chf :on bb and statin paf/htn: bb , amio, hold eliquis for anticipated ortho procedure.
[2021-10-02] MEDS: carvediloL 3.125 MG TABLET 6.25 MG PO (20:52)
[2021-10-02] MEDS: Atorvastatin Calcium 20 MG TABLET PO (20:53)
[2021-10-02] MEDS: clonazePAM 1 MG TABLET 2 MG PO (20:54)
[2021-10-02] MEDS: Morphine Sulfate 2 MG/ML CARTRIDGE 1 MG IVPUSH (21:09)
[2021-10-03] VITALS (12 sets, daily range): BP systolic 95–143; BP diastolic 48–63; PULSE 64–88; RESP 14–18; TEMP 36.3–37; O2SAT 93–98
[2021-10-03] MEDS: Morphine Sulfate 2 MG/ML CARTRIDGE 1 MG IVPUSH ×3 (01:32→12:57)
[2021-10-03] MEDS: Omeprazole 20 MG CAPSULE.DR PO (05:51)
--- NOTE | 2021-10-03 07:27 | PC.NURSE ---
PT ALERT AND ORIENTED. COMFORTABLE AT PRESENT. EATING BKFST.
--- NOTE | 2021-10-03 07:36 | PC.NURSE ---
CALL TO FLOOR FOR REPORT
--- NOTE | 2021-10-03 07:46 | PC.NURSE ---
REPORT TO JUANITO LOUIS.
[2021-10-03] MEDS: 0.9 % Sodium Chloride Flush 3 ML SYRINGE IVFLUSH ×3 (08:01→20:56)
[2021-10-03] MEDS: carvediloL 3.125 MG TABLET 6.25 MG PO ×2 (08:40→20:58)
[2021-10-03] MEDS: polyethylene glycoL 3350 17 GM POWD.PACK PO (08:41)
[2021-10-03] MEDS: Multivitamin TABLET 1 TAB PO (08:41)
[2021-10-03] MEDS: Amiodarone HCL 200 MG TABLET 100 MG PO (08:41)
[2021-10-03] MEDS: Loratadine 10 MG TABLET PO (08:41)
[2021-10-03] MEDS: traMADoL HCL 50 MG TABLET 100 MG PO ×3 (08:41→20:57)
--- NOTE | 2021-10-03 09:25 | MHC.CM.PN ---
Addendum entered by Oanh Anderson 10/03/21 15:23: PTS GRAND DAUGHTER PRESENTED TO THE NURSES STATION WITH PTS MOLST FORM HOWEVER REPORTS SHE DOES NOT THINK THE PT ACTUALLY HAS A HCP. CM MET WITH PT TO EXPLAIN WHAT A HCP WAS AND SHE REQUESTED TO COMPLETE ONE NAMING HER GRAND DAUGHTER, LISA CAO, HER AGENT. HCP COMPLETED. HCP AND MOLST SCANNED INTO [facility] Original Note: [facility] IS ABLE TO ACCEPT PT PENDING BED AVAILABILITY AT [place]. PT MADE AWARE. CURRENT PLAN IS FOR PT TO HAVE SURGERY 10/04/21, AND DISCHARGE EARLY NEXT WEEK TO [facility] FOR STR.
--- NOTE | 2021-10-03 12:21 | HO.PM.IMPN ---
Subjective Subjective Date of Service: 10/04/21 Interval History: htn , hip fx. Review of Systems patient still has mild pain and soreness in the hip area. Denies any nausea or vomiting or abdominal pain or fever or chills. Physical Exam Vital Signs: Vital Signs: Last Vital Signs Temp 98.0 F 10/03/21 11:40 Pulse 65 10/03/21 11:40 Resp 14 10/03/21 11:40 BP 141/63 H 10/03/21 11:40 Pulse Ox 96 10/03/21 11:40 BMI result Body Mass Index 27.7 Physical exam: Appearance: Alert.? Oriented X3.? not in distress.? Eyes: Pupils equal, round and reactive to light.? Sclera nonicteric.? ENT: Pharynx normal.? Moist mucous membranes. cvs: rrr, [id number] , no murmur res: clear to auscultation ,no rhonchii or wheezing abd: no rebound or guarding ,nt, bs present. ext pulses present , no cyanosis left leg externally rotated. neuro: axo3 , nonfocal. Objective Data Active Medications Amiodarone HCl (Amiodarone Hcl 200 Mg Tablet) 100 mg PO DAILY [facility] 234 BEDS AT THE [facility] Last Admin: 10/03/21 08:41 Dose: 100 mg Documented by: COTEMA Atorvastatin Calcium (Atorvastatin Calcium 20 Mg Tablet) 20 mg PO BEDTIME [facility]S [facility]CLUDE 234 BEDS AT THE [facility] Last Admin: 10/02/21 20:53 Dose: 20 mg Documented by: MILLI Carvedilol (Carvedilol 3.125 Mg Tablet) 6.25 mg PO BID [facility]S [facility]CLUDE 234 BEDS AT THE [facility]; Protocol Last Admin: 10/03/21 08:40 Dose: 6.25 mg Documented by: COTEMA Clonazepam (Clonazepam 1 Mg Tablet) 2 mg PO BEDTIME PRN PRN Reason: Restless Leg(S) Last Admin: 10/02/21 20:54 Dose: 2 mg Documented by: MILLI Furosemide (Furosemide 20 Mg Tablet) 20 mg PO DAILY PRN; Protocol PRN Reason: Edema Loratadine (Loratadine 10 Mg Tablet) 10 mg PO DAILY [facility]S [facility]CLUDE 234 BEDS AT THE [facility] Last Admin: 10/03/21 08:41 Dose: 10 mg Documented by: COTEMA Morphine Sulfate (Morphine Sulfate 2 Mg/Ml Cartridge) 1 mg IVPUSH Q4H PRN; Protocol PRN Reason: Pain, Mild (Pain Scale 1-3) Last Admin: 10/03/21 08:01 Dose: 1 mg Documented by: MARSHA Multivitamins/Vitamin C (Multivitamin Tablet) 1 tab PO DAILY [facility]S INCLUDE 234 BEDS AT THE [facility] Last Admin: 10/03/21 08:41 Dose: 1 tab Documented by: COTEMA Omeprazole (Omeprazole 20 Mg Capsule.) 20 mg PO DAILY@0630 [facility]S [facility]CLUDE 234 BEDS AT THE [facility] Last Admin: 10/03/21 05:51 Dose: 20 mg Documented by: ANTOIC Pharmacy Consult (Consult Rx Perform Med Rec) 1 each MISCELLANE ONCE PRN PRN Reason: Consult order Polyethylene Glycol (Polyethylene Glycol 3350 17 Gm Powd.Pack) 17 gm PO DAILY [facility]S [facility]CLUDE 234 BEDS AT THE [facility] Last Admin: 10/03/21 08:41 Dose: 17 gm Documented by: RODNEY Sodium Chloride (0.9 % Sodium Chloride Flush 3 Ml Syringe) 3 ml IVFLUSH QSHIFT COUNTS INCLUDE 234 BEDS AT THE [facility] Last Admin: 10/03/21 08:01 Dose: 3 ml Documented by: MARSHA Tramadol HCl (Tramadol Hcl 50 Mg Tablet) 100 mg PO TID [facility]S INCLUDE 234 BEDS AT THE [facility] Last Admin: 10/03/21 08:41 Dose: 100 mg Documented by: RODNEY Valsartan (Valsartan 160 Mg Tablet) 160 mg PO DAILY [facility]S INCLUDE 234 BEDS AT THE [facility]; Protocol Last Admin: 10/03/21 08:36 Dose: Not Given Documented by: RODNEY Non-Admin Reason: Physician Held Med Labs CBC & Chem 7: 10/04/21 05:39 10/04/21 05:39 Assessment and Plan (1) Left displaced femoral neck fracture: Status: Acute (2) CAD (coronary artery disease): Status: Acute (3) HTN (hypertension): Status: Acute Assessment and Plan: 71-year-old female with past medical history of osteoarthritis presents to the hospital with complaints of left hip pain found to have left? femoral fracture 1. left femoral neck fracture-? nontraumatic. pain management with morphine bowel regimen hold eliquis for anticipated ortho procedure. npo past midnight for morning surgery procedure. 2.? history of ch systolic CHF -? not in exacerbation continue furosemide 3.? coronary artery disease, Also has a biventricular ICD: -? continue carvedilol,? statin, 4. A fib: - Hold eliquis - continue? carvedilol,amiodarone dvt prophylax: venodyne boots Quality Stroke Does the patient have a stroke diagnosis?: No VTE Prior VTE?: No VTE Risk Level:: Medical - moderate - high VTE Device Contraindication: Treatment Not Indicated VTE Drug Contraindication: N/A - Med Ordered
--- NOTE | 2021-10-03 19:00 | PM.EVENT ---
Event Note Date of Service: 10/03/21 Event Note: patient seen at bedside this morning. She is resting comfortably in bed. explained to her the surgery is planned for tomorrow morning she will be NPO after midnight all questions answered.
[2021-10-03 19:27] LABS: MANUAL DIFF FLAG NO
[2021-10-03 19:33] LABS: Basophils Percent Auto 0.3 % (0-2); Eosinophils Absolute Auto 0.1 X10*3/uL (0.0-0.4); Eosinophils Percent Auto 1.8 % (0-4); Hematocrit 29.7 % (37.0-47.0); Hemoglobin 9.3 g/dl (12.0-16.0); Imm Gran Abs Auto 0.03 X10*3/uL (0.00-0.03); Imm Gran Pct Auto 0.4 % (0.0-0.4); Lymphocytes Absolute Auto 0.4 X10*3/uL (1.2-4.9); Lymphocytes Percent Auto 5.3 % (20-40); Mean Corpuscular HGB Conc 31.3 g/dl (31.0-35.0); Mean Corpuscular Hemoglobin 32.1 pg (27.0-33.0); Mean Corpuscular Volume 102.4 fL (80.0-98.0); Mean Platelet Volume 9.2 fL (9.4-12.3); Monocytes Percent Auto 13.7 % (2-11); Neutrophils Percent Auto 78.5 % (45-73); Platelet Count 173 X10*3/uL (160-400); Red Cell Distribution Width 15.4 % (11.0-16.0); White Blood Count 7.6 X10*3/uL (4.8-10.8)
[2021-10-03 19:54] LABS: Anion Gap 12 (12-20); Blood Urea Nitrogen 19 mg/dL (9-16); Calcium 8.6 mg/dL (8.4-10.2); Carbon Dioxide 27 mmol/L (22-29); Chloride 103 mmol/L (96-108); Estimated Glomerular Filt Rate 59; Glucose Random 119 mg/dL (60-115); Potassium 4.6 mmol/L (3.3-5.1); Sodium 137 mmol/L (135-145)
[2021-10-03] MEDS: Docusate Sodium 100 MG CAPSULE PO (20:56)
[2021-10-03] MEDS: clonazePAM 1 MG TABLET 2 MG PO (20:59)
[2021-10-04] VITALS (21 sets, daily range): BP systolic 100–160; BP diastolic 36–67; PULSE 65–78; RESP 16–18; TEMP 36.6–37.4; O2SAT 92–98
[2021-10-04 05:50] LABS: MANUAL DIFF FLAG NO
[2021-10-04 05:54] LABS: Basophils Percent Auto 0.1 % (0-2); Eosinophils Absolute Auto 0.2 X10*3/uL (0.0-0.4); Eosinophils Percent Auto 2.6 % (0-4); Hematocrit 28.1 % (37.0-47.0); Hemoglobin 8.9 g/dl (12.0-16.0); Imm Gran Abs Auto 0.02 X10*3/uL (0.00-0.03); Imm Gran Pct Auto 0.3 % (0.0-0.4); Lymphocytes Absolute Auto 0.4 X10*3/uL (1.2-4.9); Lymphocytes Percent Auto 6.4 % (20-40); Mean Corpuscular HGB Conc 31.7 g/dl (31.0-35.0); Mean Corpuscular Hemoglobin 31.7 pg (27.0-33.0); Mean Platelet Volume 9.4 fL (9.4-12.3); Monocytes Absolute Auto 1.1 X10*3/uL (0.1-1.2); Monocytes Percent Auto 15.7 % (2-11); Neutrophils Absolute Auto 5.2 x10*3/uL (2.0-8.3); Neutrophils Percent Auto 74.9 % (45-73); Platelet Count 166 X10*3/uL (160-400); Red Blood Count 2.81 X10*6/uL (4.20-5.50); Red Cell Distribution Width 15.3 % (11.0-16.0); White Blood Count 6.9 X10*3/uL (4.8-10.8)
[2021-10-04 06:38] LABS: Anion Gap 12 (12-20); Blood Urea Nitrogen 21 mg/dL (9-16); Calcium 8.6 mg/dL (8.4-10.2); Carbon Dioxide 24 mmol/L (22-29); Chloride 105 mmol/L (96-108); Creatinine Clr Calc Pharmacy 60.2; Estimated Glomerular Filt Rate > 60; Glucose Random 94 mg/dL (60-115); Potassium 4.1 mmol/L (3.3-5.1); Sodium 137 mmol/L (135-145)
[2021-10-04] MEDS: 0.9 % Sodium Chloride Flush 3 ML SYRINGE IVFLUSH (07:42)
[2021-10-04] MEDS: Lactated Ringers 1,000 ML 80 ML IVCONT (07:42)
[2021-10-04] MEDS: traMADoL HCL 50 MG TABLET 100 MG PO ×3 (07:43→21:20)
[2021-10-04] MEDS: carvediloL 3.125 MG TABLET 6.25 MG PO (07:43)
[2021-10-04] MEDS: Multivitamin TABLET 1 TAB PO (07:43)
[2021-10-04] MEDS: Amiodarone HCL 200 MG TABLET 100 MG PO (07:43)
[2021-10-04] MEDS: Loratadine 10 MG TABLET PO (07:43)
--- NOTE | 2021-10-04 09:32 | MHC.SHP ---
Pre-Procedural Eval Section A Date of Service: 10/04/21 The patient is an INPATIENT: Yes Changes since office visit: Yes Patient answered all questions; No Cold of Flu in the past 2 weeks, No New Medical Problems and No Changes in Medication The History & Physical has been completed within 30 days and I have reviewed it.: Yes Section B Chief Complaint: Hip Fracture Allergies: Allergies Allergy/AdvReac Type Severity Reaction Status Date / Time levofloxacin [From LEVAQUIN] Allergy Intermediate RASH Verified 08/15/21 11:09 Darvocet-N 50 Allergy Mild hives Uncoded 08/15/21 11:09 Sulfacet-R Allergy Unknown gi Uncoded 06/24/20 00:00 Plan I have reviewed the history and physical and performed a pertinent physical examination on my patient. No changes have occurred unless specified.
[2021-10-04] MEDS: ceFAZolin Sodium/Dextrose,Iso 2 GM/50 ML PIGGYBACK IV ×2 (10:00→16:23)
--- NOTE | 2021-10-04 11:32 | PM.OP ---
Brief Operative Note Date of Service: 10/04/21 Pre-op diagnosis: Left hip fracture Post-op diagnosis: other (1) left hip fracture 2) end stage osteoarthritis left hip) Procedure: Left ROSY Implants: María Elena Trident2 #52 and 20 deg lipped liner with Accolade2 #4 127deg with + 0 36 ceramic femoral head Surgeon: Jagdish Franklin MD Anesthesia: GETA and local Was an Network Architect Manager used for this Procedure?: Yes Network Architect Manager: Mine Vázquez Estimated blood loss (mL): 200 IV fluids (mL): 800 Pathology: other Condition: stable Disposition: PACU
--- NOTE | 2021-10-04 11:35 | P.OP_ITS ---
Operative Note Operative Note Date of Service: 10/04/21 Narrative: Pre-op diagnosis: Left hip fracture Post-op diagnosis: other (1) Left hip fracture 2) End-stage osteoarthritis left hip Procedure: Left ROSY Implants: María Elena Trident2 #52 and 20 deg liner with Accolade2 #4 127deg with + 0 36 ceramic femoral head Surgeon: Jagdish Franklin MD Anesthesia: GETA and local Was an Rock Splitter used for this Procedure?: Yes Rock Splitter: Mine Vázquez Estimated blood loss (mL): 200 IV fluids (mL): 800 Pathology: other Condition: stable Disposition: PACU Indications: This is a 71 y.o F with severe OA of the left hip who was scheduled for ROSY next month. She presented with a femoral neck fracture and was consequently consented to left ROSY. Procedure in detail: Patient was brought into the operating room and placed in the right lateral decubitus position. All bony prominences were well padded and the limb was prepped and draped in standard sterile fashion. Time-out was called to identify proper site procedure proper surgeon IV antibiotics . I began by making a curvilinear incision over the posterolateral aspect of the greater trochanter. Dissection was taken down to the tensor fascia which was incised in line with the incision and a Charnley retractor was placed. Werewolf hemostasis wand ( [employer]) was used.. The hip was internally rotated and the external rotators were identified. The vessels were cauterized and a full-thickness capsular/external rotator layer was developed starting just proximal to the piriformis. This layer was tagged and a dull Hohmann retractor was placed underneath the neck in the hip was partially dislocated. There was a fracture of the neck just distal to the head preventing articular dislocation so an in-situ neck cut was made and the head was removed with a corkscrew. The head was eburnated. A clean-up neck cut was made 1 cm proximal to the lesser trochanter and the bony fragments were removed from the acetabulum. I removed the fovea and examined the acetabulum which was arthritic. I placed my anterior and posterior acetabular retractors and I started with a 45 reamed and sequentially reamed up to a size 51 and impacted a 52 mm cup at approximately 45 degrees of inclination and 25 degrees of version. I then placed a 20 deg liner and turned my attention to the femur. I identified the piriformis insertion and used this as a starting point for my jo cutter. The medius tendon was protected with a Hibs retractor. I used a Charnley awl to identify the canal and a curved curette to remove the lateral bone. I irrigated copiously. I then sequentially broached in the patient's natural version to a size 4 and placed my 127 deg trial implant. Using a +0 head I took the hip through range of motion. I was very satisfied with the stability and length. Therefore I removed all instrumentation and copiously irrigated. I impacted my final femoral implant and again took the hip through range of motion and was satisfied with the stability and length. A +0 36 ceramic head was placed. I then irrigated for 3 minutes with iodine. I then performed a capsular closure with 2.0 fiberwire, Urszula's fascia with 0 Vicryl, subcuticular with 2-0 Vicryl and the skin with sebastián. Patient was placed into a sterile dressing and brought to the recovery room in stable condition. There were no know complications.
[2021-10-04] MEDS: fentaNYL citrate/PF 100 MCG/2 ML VIAL 25 MCG IVPUSH ×3 (12:20→13:20)
--- NOTE | 2021-10-04 12:28 | P.PNIM_ITS ---
Subjective Subjective Date of Service: 10/05/21 Interval History: hip fx htn Review of Systems Patient going for he surgery today. Denies any chest pain shortness of breath or abdominal pain or fever chills. Physical Exam Vital Signs: Vital Signs: Last Vital Signs Temp 98.6 F 10/04/21 12:10 Pulse 70 10/04/21 12:25 Resp 18 10/04/21 12:25 BP 115/49 L 10/04/21 12:25 Pulse Ox 98 10/04/21 12:25 BMI result Body Mass Index 27.7 Appearance: Alert.? Oriented X3.? not in distress.? Eyes: Pupils equal, round and reactive to light.? Sclera nonicteric.? ENT: Pharynx normal.? Moist mucous membranes. cvs: rrr, [id number] , no murmur res: clear to auscultation ,no rhonchii or wheezing abd: no rebound or guarding ,nt, bs present. ext pulses present , no cyanosis left leg externally rotated. neuro: axo3 , nonfocal. Objective Data Active Medications Amiodarone HCl (Amiodarone Hcl 200 Mg Tablet) 100 mg PO DAILY [facility] Last Admin: 10/04/21 07:43 Dose: 100 mg Documented by: RODNEY Atorvastatin Calcium (Atorvastatin Calcium 20 Mg Tablet) 20 mg PO BEDTIME [facility] Last Admin: 10/02/21 20:53 Dose: 20 mg Documented by: MILLI Carvedilol (Carvedilol 3.125 Mg Tablet) 6.25 mg PO BID [facility]; Protocol Last Admin: 10/04/21 07:43 Dose: 6.25 mg Documented by: COTHIRO Clonazepam (Clonazepam 1 Mg Tablet) 2 mg PO BEDTIME PRN PRN Reason: Restless Leg(S) Last Admin: 10/03/21 20:59 Dose: 2 mg Documented by: CASTILDenzel Docusate Sodium (Docusate Sodium 100 Mg Capsule) 100 mg PO BEDTIME [facility] Last Admin: 10/03/21 20:56 Dose: 100 mg Documented by: JANETILDenzel Fentanyl (Fentanyl Citrate/Pf 100 Mcg/2 Ml Vial) 25 mcg IVPUSH Q5M PRN; Protocol PRN Reason: Pain, Moderate (Pain Scale 4-6 Last Admin: 10/04/21 12:20 Dose: 25 mcg Documented by: TOOTIE Furosemide (Furosemide 20 Mg Tablet) 20 mg PO DAILY PRN; Protocol PRN Reason: Edema Lactated Ringer's (Lr) 1,000 mls @ 80 mls/hr IVCONT .[id number] [facility] Last Infusion: 10/04/21 09:28 Dose: 0 mls/hr Documented by: COTEMA Loratadine (Loratadine 10 Mg Tablet) 10 mg PO DAILY [facility] Last Admin: 10/04/21 07:43 Dose: 10 mg Documented by: COTEMA Morphine Sulfate (Morphine Sulfate 2 Mg/Ml Cartridge) 1 mg IVPUSH Q4H PRN; Protocol PRN Reason: Pain, Mild (Pain Scale 1-3) Last Admin: 10/03/21 12:57 Dose: 1 mg Documented by: EUNICE Multivitamins/Vitamin C (Multivitamin Tablet) 1 tab PO DAILY [facility] Last Admin: 10/04/21 07:43 Dose: 1 tab Documented by: COTEMA Omeprazole (Omeprazole 20 Mg Capsule.Dr) 20 mg PO DAILY@0630 [facility] Last Admin: 10/04/21 04:56 Dose: Not Given Documented by: CASTILM Non-Admin Reason: pt isNPO ,for surgery today Pharmacy Consult (Consult Rx Perform Med Rec) 1 each MISCELLANE ONCE PRN PRN Reason: Consult order Polyethylene Glycol (Polyethylene Glycol 3350 17 Gm Powd.Pack) 17 gm PO DAILY [facility] Last Admin: 10/04/21 07:44 Dose: Not Given Documented by: COTHIRO Non-Admin Reason: NPO Sodium Chloride (0.9 % Sodium Chloride Flush 3 Ml Syringe) 3 ml IVFLUSH QSHIFT [facility] Last Admin: 10/04/21 07:42 Dose: 3 ml Documented by: COTEMA Tramadol HCl (Tramadol Hcl 50 Mg Tablet) 100 mg PO TID [facility] Last Admin: 10/04/21 07:43 Dose: 100 mg Documented by: COTEMA Valsartan (Valsartan 160 Mg Tablet) 160 mg PO DAILY [facility]; Protocol Last Admin: 10/03/21 08:36 Dose: Not Given Documented by: RODNEY Non-Admin Reason: Physician Held Med Labs CBC & Chem 7: 10/05/21 03:57 10/05/21 03:57 Labs: Laboratory Results - last 24 hr 10/03/21 10/03/21 10/04/21 19:22 19:22 05:39 MCV 102.4 H 100.0 H MCH 32.1 31.7 MCHC 31.3 31.7 RDW 15.4 15.3 Plt Count 173 166 MPV 9.2 L 9.4 Immature Gran % (Auto) 0.4 0.3 Neut % (Auto) 78.5 H 74.9 H Lymph % (Auto) 5.3 L 6.4 L [place] % (Auto) 13.7 H 15.7 H Eos % (Auto) 1.8 2.6 Baso % (Auto) 0.3 0.1 Lymph # (Auto) 0.4 L 0.4 L [place] # (Auto) 1.0 1.1 Eos # (Auto) 0.1 0.2 Baso # (Auto) 0.0 0.0 Abs Immat Gran (auto) 0.03 0.02 Absolute Neuts (auto) 6.0 5.2 Absolute Nucleated RBC 0.000 0.000 Nucleated RBC % (auto) 0.0 0.0 Anion Gap 12 Estim Creat Clear Calc 57.0 Estimated GFR 59 Random Glucose 119 H Calcium 8.6 10/04/21 05:39 MCV MCH MCHC RDW Plt Count MPV Immature Gran % (Auto) Neut % (Auto) Lymph % (Auto) [place] % (Auto) Eos % (Auto) Baso % (Auto) Lymph # (Auto) [place] # (Auto) Eos # (Auto) Baso # (Auto) Abs Immat Gran (auto) Absolute Neuts (auto) Absolute Nucleated RBC Nucleated RBC % (auto) Anion Gap 12 Estim Creat Clear Calc 60.2 Estimated GFR > 60 Random Glucose 94 Calcium 8.6 Assessment and Plan (1) Left displaced femoral neck fracture: Status: Acute (2) CAD (coronary artery disease): Status: Acute (3) HTN (hypertension): Status: Acute (4) Biventricular ICD (implantable cardioverter-defibrillator) in place: Status: Acute Assessment and Plan: 71-year-old female with past medical history of osteoarthritis presents to the hospital with complaints of left hip pain found to have left? femoral fracture 1. left femoral neck fracture-? nontraumatic. pain management with morphine bowel regimen hold eliquis for anticipated ortho procedure. going for surgery procedure. 2.? history of ch systolic CHF -? not in exacerbation continue furosemide 3.? coronary artery disease, Also has? a biventricular ICD: -? continue carvedilol,? statin, 4.? A fib: - Hold eliquis - continue? carvedilol,amiodarone dvt prophylax: venodyne boots Quality Stroke Does the patient have a stroke diagnosis?: No VTE Prior VTE?: No VTE Risk Level:: Medical - moderate - high VTE Device Contraindication: Treatment Not Indicated VTE Drug Contraindication: N/A - Med Ordered
[2021-10-04] MEDS: oxyCODONE HCl Immed Release 5 MG TABLET PO (12:45)
[2021-10-04] MEDS: ondansetron HCL 4 MG/2 ML VIAL IVPUSH (12:47)
[2021-10-04] MEDS: Morphine Sulfate 2 MG/ML CARTRIDGE 1 MG IVPUSH ×2 (14:43→22:47)
[2021-10-04] MEDS: Docusate Sodium 100 MG CAPSULE PO (21:20)
[2021-10-05] VITALS (9 sets, daily range): BP systolic 109–126; BP diastolic 53–61; PULSE 67–75; RESP 17–18; TEMP 36.3–37.1; O2SAT 92–96
[2021-10-05] MEDS: Morphine Sulfate 2 MG/ML CARTRIDGE 1 MG IVPUSH ×3 (02:43→14:14)
[2021-10-05] MEDS: Lactated Ringers 1,000 ML 80 ML IVCONT (02:45)
[2021-10-05 04:19] LABS: MANUAL DIFF FLAG NO
[2021-10-05 04:28] LABS: Basophils Percent Auto 0.1 % (0-2); Hematocrit 25.5 % (37.0-47.0); Imm Gran Abs Auto 0.06 X10*3/uL (0.00-0.03); Imm Gran Pct Auto 0.5 % (0.0-0.4); Lymphocytes Absolute Auto 0.3 X10*3/uL (1.2-4.9); Lymphocytes Percent Auto 2.1 % (20-40); Mean Corpuscular HGB Conc 31.4 g/dl (31.0-35.0); Mean Corpuscular Hemoglobin 31.1 pg (27.0-33.0); Mean Corpuscular Volume 99.2 fL (80.0-98.0); Mean Platelet Volume 9.8 fL (9.4-12.3); Monocytes Absolute Auto 1.2 X10*3/uL (0.1-1.2); Monocytes Percent Auto 9.4 % (2-11); Neutrophils Absolute Auto 11.3 x10*3/uL (2.0-8.3); Neutrophils Percent Auto 87.9 % (45-73); Platelet Count 173 X10*3/uL (160-400); Red Blood Count 2.57 X10*6/uL (4.20-5.50); Red Cell Distribution Width 14.7 % (11.0-16.0); White Blood Count 12.8 X10*3/uL (4.8-10.8)
[2021-10-05 04:51] LABS: Anion Gap 12 (12-20); Blood Urea Nitrogen 21 mg/dL (9-16); Calcium 8.4 mg/dL (8.4-10.2); Carbon Dioxide 27 mmol/L (22-29); Chloride 104 mmol/L (96-108); Creatinine Clr Calc Pharmacy 61.6; Estimated Glomerular Filt Rate > 60; Glucose Random 197 mg/dL (60-115); Potassium 4.6 mmol/L (3.3-5.1); Sodium 138 mmol/L (135-145)
[2021-10-05] MEDS: Omeprazole 20 MG CAPSULE.DR PO (05:57)
[2021-10-05] MEDS: traMADoL HCL 50 MG TABLET 100 MG PO ×3 (08:27→20:58)
[2021-10-05] MEDS: 0.9 % Sodium Chloride Flush 3 ML SYRINGE IVFLUSH ×3 (08:27→20:59)
[2021-10-05] MEDS: carvediloL 3.125 MG TABLET 6.25 MG PO ×2 (08:27→20:58)
[2021-10-05] MEDS: Loratadine 10 MG TABLET PO (08:27)
[2021-10-05] MEDS: Multivitamin TABLET 1 TAB PO (08:27)
[2021-10-05] MEDS: polyethylene glycoL 3350 17 GM POWD.PACK PO (08:28)
[2021-10-05] MEDS: Amiodarone HCL 200 MG TABLET 100 MG PO (08:28)
--- NOTE | 2021-10-05 08:44 | PM.PNORT ---
Subjective Subjective Date of Service: 10/05/21 Interval history: POD 1 s/p LT JULI no overnight events resting in bed, has pain with movement. denies cp, sob, palpitations. Physical Exam Vital Signs: Vital Signs: Last Vital Signs Temp 97.7 F 10/05/21 07:00 Pulse 74 10/05/21 07:00 Resp 18 10/05/21 07:00 BP 120/58 L 10/05/21 07:00 Pulse Ox 92 10/05/21 07:00 BMI result Body Mass Index 27.7 Const: General: cooperative, healthy appearing and no acute distress Resp: Effort & Inspection: normal respiratory effort and able to speak in complete sentences Cardio: Rate: regular rate Peripheral pulses: Peripheral pulses 2+ throughout GI: Palpation (GI): Soft to palpation Skin: General skin exam: no rashes or lesions noted Extrem: Other: left hip bandage clean , dry and intact. No erythema,sensation and pulses intact. Procedures Date of Service Date of Service: 10/05/21 Progress Note: A&P Assessment and plan (1) History of total left hip replacement: Status: Acute Assessment and Plan: Continue pain mgmnt Begin lovenox for dvt ppx-resume eliquis after 48 hours post op begin PT for LT Juli-posterior precautions dispo planning- PT eval, pain mgmnt Fall Risk Details Current Medications: Current Medications Amiodarone HCl (Amiodarone Hcl 200 Mg Tablet) 100 mg PO DAILY [facility] Last Admin: 10/05/21 08:28 Dose: 100 mg Documented by: Atorvastatin Calcium (Atorvastatin Calcium 20 Mg Tablet) 20 mg PO BEDTIME [facility] Last Admin: 10/02/21 20:53 Dose: 20 mg Documented by: Carvedilol (Carvedilol 3.125 Mg Tablet) 6.25 mg PO BID [facility]; Protocol Last Admin: 10/05/21 08:27 Dose: 6.25 mg Documented by: Clonazepam (Clonazepam 1 Mg Tablet) 2 mg PO BEDTIME PRN PRN Reason: Restless Leg(S) Last Admin: 10/03/21 20:59 Dose: 2 mg Documented by: Docusate Sodium (Docusate Sodium 100 Mg Capsule) 100 mg PO BEDTIME [facility] Last Admin: 10/04/21 21:20 Dose: 100 mg Documented by: Furosemide (Furosemide 20 Mg Tablet) 20 mg PO DAILY PRN; Protocol PRN Reason: Edema Loratadine (Loratadine 10 Mg Tablet) 10 mg PO DAILY [facility] Last Admin: 10/05/21 08:27 Dose: 10 mg Documented by: Morphine Sulfate (Morphine Sulfate 2 Mg/Ml Cartridge) 1 mg IVPUSH Q4H PRN; Protocol PRN Reason: Pain, Mild (Pain Scale 1-3) Last Admin: 10/05/21 08:21 Dose: 1 mg Documented by: Multivitamins/Vitamin C (Multivitamin Tablet) 1 tab PO DAILY [facility] Last Admin: 10/05/21 08:27 Dose: 1 tab Documented by: Omeprazole (Omeprazole 20 Mg Capsule.Dr) 20 mg PO DAILY@0630 [facility] Last Admin: 10/05/21 05:57 Dose: 20 mg Documented by: Ondansetron HCl (Ondansetron Hcl 4 Mg/2 Ml Vial) 4 mg IVPUSH ONCE PRN PRN Reason: Nausea and Vomiting Last Admin: 10/04/21 12:47 Dose: 4 mg Documented by: Pharmacy Consult (Consult Rx Perform Med Rec) 1 each MISCELLANE ONCE PRN PRN Reason: Consult order Polyethylene Glycol (Polyethylene Glycol 3350 17 Gm Powd.Pack) 17 gm PO DAILY [facility] Last Admin: 10/05/21 08:28 Dose: 17 gm Documented by: Sodium Chloride (0.9 % Sodium Chloride Flush 3 Ml Syringe) 3 ml IVFLUSH QSHIFT [facility] Last Admin: 10/05/21 08:27 Dose: 3 ml Documented by: Tramadol HCl (Tramadol Hcl 50 Mg Tablet) 100 mg PO TID [facility] Last Admin: 10/05/21 08:27 Dose: 100 mg Documented by: Valsartan (Valsartan 160 Mg Tablet) 160 mg PO DAILY [facility]; Protocol Last Admin: 10/03/21 08:36 Dose: Not Given Documented by: Time Spent With Patient Time: Total time spent is greater than 50% in coordination of care (as documented) at patient's floor/unit and/or counseling patient: Time with patient: less than 15 minutes Quality Stroke Does the patient have a stroke diagnosis?: No VTE Prior VTE?: No VTE Risk Level:: Medical - moderate - high VTE Device Contraindication: Treatment Not Indicated VTE Drug Contraindication: N/A - Med Ordered
[2021-10-05] MEDS: Enoxaparin Sodium 40 MG/0.4 ML SYRINGE SUBCUT (09:32)
--- NOTE | 2021-10-05 12:16 | MHC.CM.PN ---
nurse ocular care technologist note patient is now ppost op day 1 s/p hip fx repair. case discussed with staff nurse and on multiple disciplianry rounds , evaluated by pt with recomendations for str. patient has chosen [facility] , clinical recferrals sent , including hcp/molst form and information regarding recivin the moderna covid vaccination at the [facility] in [place] discharge plan str pending response on bed avaiability from [facility] , explained to patient that they might not have bed availabi.itdayanara,but she did not want to give me any choices at this time, action bls for transportation will need repeat covid test medicare immm updated
--- NOTE | 2021-10-05 12:47 | P.PNIM_ITS ---
Subjective Subjective Date of Service: 10/05/21 Interval History: hip fx, htn Review of Systems status post hip surgery yesterday. Seems improving, could able to participate in PT somewhat today has still hip soreness but overall feeling better denies any chest pain or shortness of breath or abdominal pain or fever or chills or nausea or vomiting. Physical Exam Vital Signs: Vital Signs: Last Vital Signs Temp 98.7 F 10/05/21 11:11 Pulse 75 10/05/21 11:11 Resp 18 10/05/21 11:11 BP 109/53 L 10/05/21 11:11 Pulse Ox 95 10/05/21 11:11 BMI result Body Mass Index 27.7 Appearance: Alert.? Oriented X3.? not in distress.? Eyes: Pupils equal, round and reactive to light.? Sclera nonicteric.? ENT: Pharynx normal.? Moist mucous membranes. cvs: rrr, [id number] , no murmur res: clear to auscultation ,no rhonchii or wheezing abd: no rebound or guarding ,nt, bs present. ext pulses present ,left - hip area soarness , no sweelin. neuro: axo3 , nonfocal. Objective Data Active Medications Amiodarone HCl (Amiodarone Hcl 200 Mg Tablet) 100 mg PO DAILY [facility] Last Admin: 10/05/21 08:28 Dose: 100 mg Documented by: LEDY Atorvastatin Calcium (Atorvastatin Calcium 20 Mg Tablet) 20 mg PO BEDTIME [facility] Last Admin: 10/02/21 20:53 Dose: 20 mg Documented by: MILLI Carvedilol (Carvedilol 3.125 Mg Tablet) 6.25 mg PO BID [facility]; Protocol Last Admin: 10/05/21 08:27 Dose: 6.25 mg Documented by: LEDY Clonazepam (Clonazepam 1 Mg Tablet) 2 mg PO BEDTIME PRN PRN Reason: Restless Leg(S) Last Admin: 10/03/21 20:59 Dose: 2 mg Documented by: CASTILDenzel Docusate Sodium (Docusate Sodium 100 Mg Capsule) 100 mg PO BEDTIME [facility] Last Admin: 10/04/21 21:20 Dose: 100 mg Documented by: NAOMY Enoxaparin Sodium (Enoxaparin Sodium 40 Mg/0.4 Ml Syringe) 40 mg SUBCUT Q24H [facility] Last Admin: 10/05/21 09:32 Dose: 40 mg Documented by: LEDY Furosemide (Furosemide 20 Mg Tablet) 20 mg PO DAILY PRN; Protocol PRN Reason: Edema Loratadine (Loratadine 10 Mg Tablet) 10 mg PO DAILY [facility] Last Admin: 10/05/21 08:27 Dose: 10 mg Documented by: LEDY Morphine Sulfate (Morphine Sulfate 2 Mg/Ml Cartridge) 1 mg IVPUSH Q4H PRN; Protocol PRN Reason: Pain, Mild (Pain Scale 1-3) Last Admin: 10/05/21 08:21 Dose: 1 mg Documented by: LEDY Multivitamins/Vitamin C (Multivitamin Tablet) 1 tab PO DAILY [facility] Last Admin: 10/05/21 08:27 Dose: 1 tab Documented by: LEDY Omeprazole (Omeprazole 20 Mg Capsule.Dr) 20 mg PO DAILY@0630 [facility] Last Admin: 10/05/21 05:57 Dose: 20 mg Documented by: ODRISM Ondansetron HCl (Ondansetron Hcl 4 Mg/2 Ml Vial) 4 mg IVPUSH ONCE PRN PRN Reason: Nausea and Vomiting Last Admin: 10/04/21 12:47 Dose: 4 mg Documented by: TOOTIE Pharmacy Consult (Consult Rx Perform Med Rec) 1 each MISCELLANE ONCE PRN PRN Reason: Consult order Polyethylene Glycol (Polyethylene Glycol 3350 17 Gm Powd.Pack) 17 gm PO DAILY [facility] Last Admin: 10/05/21 08:28 Dose: 17 gm Documented by: LEDY Sodium Chloride (0.9 % Sodium Chloride Flush 3 Ml Syringe) 3 ml IVFLUSH QSHIFT [facility] Last Admin: 10/05/21 08:27 Dose: 3 ml Documented by: LEDY Tramadol HCl (Tramadol Hcl 50 Mg Tablet) 100 mg PO TID [facility] Last Admin: 10/05/21 08:27 Dose: 100 mg Documented by: LEDY Valsartan (Valsartan 160 Mg Tablet) 160 mg PO DAILY [facility]; Protocol Last Admin: 10/03/21 08:36 Dose: Not Given Documented by: COTEMA Non-Admin Reason: Physician Held Med Labs CBC & Chem 7: 10/05/21 03:57 10/05/21 03:57 Labs: Laboratory Results - last 24 hr 10/05/21 10/05/21 03:57 03:57 MCV 99.2 H MCH 31.1 MCHC 31.4 RDW 14.7 Plt Count 173 MPV 9.8 Immature Gran % (Auto) 0.5 H Neut % (Auto) 87.9 H Lymph % (Auto) 2.1 L [place] % (Auto) 9.4 Eos % (Auto) 0.0 Baso % (Auto) 0.1 Lymph # (Auto) 0.3 L [place] # (Auto) 1.2 Eos # (Auto) 0.0 Baso # (Auto) 0.0 Abs Immat Gran (auto) 0.06 H Absolute Neuts (auto) 11.3 H Absolute Nucleated RBC 0.000 Nucleated RBC % (auto) 0.0 Anion Gap 12 Estim Creat Clear Calc 61.6 Estimated GFR > 60 Random Glucose 197 H Calcium 8.4 Assessment and Plan (1) Left displaced femoral neck fracture: Status: Acute (2) Paroxysmal atrial fibrillation: Status: Acute (3) HTN (hypertension): Status: Acute Assessment and Plan: 71-year-old female with past medical history of osteoarthritis presents to the hospital with complaints of left hip pain found to have left? femoral fracture 1. left femoral neck fracture-? nontraumatic. pain management with morphine bowel regimen hold eliquis -start once ok with orto, postop anemia -moniter h/h. 2.? history of ch systolic CHF -? not in exacerbation continue furosemide 3.? coronary artery disease, Also has? a biventricular ICD: -? continue carvedilol,? statin, 4.? A fib: - Hold eliquis - continue? carvedilol,amiodarone dvt prophylax: venodyne boots , will start Quality Stroke Does the patient have a stroke diagnosis?: No VTE Prior VTE?: No VTE Risk Level:: Medical - moderate - high VTE Device Contraindication: Treatment Not Indicated VTE Drug Contraindication: N/A - Med Ordered
[2021-10-05] MEDS: Atorvastatin Calcium 20 MG TABLET PO (20:58)
[2021-10-05] MEDS: Docusate Sodium 100 MG CAPSULE PO (20:58)
[2021-10-06] VITALS (13 sets, daily range): BP systolic 99–125; BP diastolic 43–81; PULSE 61–74; RESP 17–18; TEMP 36–37.3; O2SAT 94–97
[2021-10-06 06:10] LABS: MANUAL DIFF FLAG NO
[2021-10-06 06:15] LABS: Basophils Percent Auto 0.1 % (0-2); Eosinophils Percent Auto 0.1 % (0-4); Hematocrit 22.3 % (37.0-47.0); Imm Gran Abs Auto 0.08 X10*3/uL (0.00-0.03); Imm Gran Pct Auto 0.7 % (0.0-0.4); Lymphocytes Absolute Auto 0.5 X10*3/uL (1.2-4.9); Lymphocytes Percent Auto 4.4 % (20-40); Mean Corpuscular HGB Conc 31.4 g/dl (31.0-35.0); Mean Corpuscular Hemoglobin 31.4 pg (27.0-33.0); Mean Platelet Volume 9.6 fL (9.4-12.3); Monocytes Absolute Auto 1.2 X10*3/uL (0.1-1.2); Monocytes Percent Auto 11.3 % (2-11); Neutrophils Percent Auto 83.4 % (45-73); Platelet Count 151 X10*3/uL (160-400); Red Blood Count 2.23 X10*6/uL (4.20-5.50); Red Cell Distribution Width 15.1 % (11.0-16.0); White Blood Count 10.8 X10*3/uL (4.8-10.8)
[2021-10-06] MEDS: Omeprazole 20 MG CAPSULE.DR PO (06:30)
[2021-10-06 06:31] LABS: Anion Gap 11 (12-20); Blood Urea Nitrogen 23 mg/dL (9-16); Calcium 8.3 mg/dL (8.4-10.2); Carbon Dioxide 26 mmol/L (22-29); Chloride 105 mmol/L (96-108); Creatinine Clr Calc Pharmacy 68.7; Estimated Glomerular Filt Rate > 60; Glucose Random 100 mg/dL (60-115); Potassium 4.5 mmol/L (3.3-5.1); Sodium 137 mmol/L (135-145)
--- NOTE | 2021-10-06 07:50 | PM.PNORT ---
Subjective Subjective Date of Service: 10/06/21 Interval history: POD 2 s/p LT ROSY No overnight events Resting in bed, worked with PT yesterday and did well but had some discomfort denies cp, sob, palpitations. Physical Exam Vital Signs: Vital Signs: Last Vital Signs Temp 97.4 F 10/06/21 03:55 Pulse 61 10/06/21 03:55 Resp 17 10/06/21 03:55 BP 120/48 L 10/06/21 03:55 Pulse Ox 94 10/06/21 03:55 BMI result Body Mass Index 27.7 Const: General: cooperative, healthy appearing and no acute distress Resp: Effort & Inspection: normal respiratory effort and able to speak in complete sentences Cardio: Rate: regular rate Peripheral pulses: Peripheral pulses 2+ throughout GI: Palpation (GI): Soft to palpation Skin: General skin exam: no rashes or lesions noted Extrem: Other: incision clean dry and intact. [place] intact. No erythema or effusion. Calf supple nontender. Neurovascularly intact. Procedures Date of Service Date of Service: 10/06/21 Progress Note: A&P Assessment and plan (1) History of total left hip replacement: Status: Acute Assessment and Plan: Continue pain mgmnt continue lovenox for dvt ppx-resume eliquis tomorrow PT/OT for LT ROSY posterior precautions 2 units PRBCs with lasix inbetween units. -monitor for CHF exacerbation -monitor vitals and h/h Dispo planning-Pending medical clearance---ok to dc from ortho standpoint once blood done. Fall Risk Details Current Medications: Current Medications Amiodarone HCl (Amiodarone Hcl 200 Mg Tablet) 100 mg PO DAILY [facility] Last Admin: 10/05/21 08:28 Dose: 100 mg Documented by: Atorvastatin Calcium (Atorvastatin Calcium 20 Mg Tablet) 20 mg PO BEDTIME [facility] Last Admin: 10/05/21 20:58 Dose: 20 mg Documented by: Carvedilol (Carvedilol 3.125 Mg Tablet) 6.25 mg PO BID [facility]; Protocol Last Admin: 10/05/21 20:58 Dose: 6.25 mg Documented by: Clonazepam (Clonazepam 1 Mg Tablet) 2 mg PO BEDTIME PRN PRN Reason: Restless Leg(S) Last Admin: 10/03/21 20:59 Dose: 2 mg Documented by: Docusate Sodium (Docusate Sodium 100 Mg Capsule) 100 mg PO BEDTIME [facility] Last Admin: 10/05/21 20:58 Dose: 100 mg Documented by: Enoxaparin Sodium (Enoxaparin Sodium 40 Mg/0.4 Ml Syringe) 40 mg SUBCUT Q24H [facility] Last Admin: 10/05/21 09:32 Dose: 40 mg Documented by: Furosemide (Furosemide 20 Mg Tablet) 20 mg PO DAILY PRN; Protocol PRN Reason: Edema Loratadine (Loratadine 10 Mg Tablet) 10 mg PO DAILY [facility] Last Admin: 10/05/21 08:27 Dose: 10 mg Documented by: Morphine Sulfate (Morphine Sulfate 2 Mg/Ml Cartridge) 1 mg IVPUSH Q4H PRN; Protocol PRN Reason: Pain, Mild (Pain Scale 1-3) Last Admin: 10/05/21 14:14 Dose: 1 mg Documented by: Multivitamins/Vitamin C (Multivitamin Tablet) 1 tab PO DAILY [facility] Last Admin: 10/05/21 08:27 Dose: 1 tab Documented by: Omeprazole (Omeprazole 20 Mg Capsule.Dr) 20 mg PO DAILY@0630 [facility] Last Admin: 10/06/21 06:30 Dose: 20 mg Documented by: Ondansetron HCl (Ondansetron Hcl 4 Mg/2 Ml Vial) 4 mg IVPUSH ONCE PRN PRN Reason: Nausea and Vomiting Last Admin: 10/04/21 12:47 Dose: 4 mg Documented by: Pharmacy Consult (Consult Rx Perform Med Rec) 1 each MISCELLANE ONCE PRN PRN Reason: Consult order Polyethylene Glycol (Polyethylene Glycol 3350 17 Gm Powd.Pack) 17 gm PO DAILY [facility] Last Admin: 10/05/21 08:28 Dose: 17 gm Documented by: Sodium Chloride (0.9 % Sodium Chloride Flush 3 Ml Syringe) 3 ml IVFLUSH QSHIFT [facility] Last Admin: 10/05/21 20:59 Dose: 3 ml Documented by: Tramadol HCl (Tramadol Hcl 50 Mg Tablet) 100 mg PO TID [facility] Last Admin: 10/05/21 20:58 Dose: 100 mg Documented by: Valsartan (Valsartan 160 Mg Tablet) 160 mg PO DAILY [facility]; Protocol Last Admin: 10/03/21 08:36 Dose: Not Given Documented by: Time Spent With Patient Time: Total time spent is greater than 50% in coordination of care (as documented) at patient's floor/unit and/or counseling patient: Time with patient: 15 - 24 minutes Quality Stroke Does the patient have a stroke diagnosis?: No VTE Prior VTE?: No VTE Risk Level:: Medical - moderate - high VTE Device Contraindication: Treatment Not Indicated VTE Drug Contraindication: N/A - Med Ordered
--- NOTE | 2021-10-06 08:42 | P.DS_ITS ---
DS: Providers Provider Date of Service: 10/07/21 Date of admission: 10/02/21 00:20 Primary care physician: Wing Emerson MD DS: Diagnosis Discharge Diagnosis (1) History of total left hip replacement: DS: Summary Hospital Course Hospital Course: Chief Complaint:? hip pain ?71-year-old female with past medical history of cardiomyopathy status post biventricular ICD, CAD, history of permanent cardiac pacemaker, HTN, LBBB,? paroxysmal AFib presents to the hospital with worsening left hip pain.? Patient reports that she has history of arthritis, and has had chronic right hip pain that started about 3 months ago, has been worsened over the past few weeks, she so the orthopedic surgeon about 2 weeks ago and was scheduled to have a? left hip replacement on the 19 of October.? Patient reports that today she noticed that she has been dragging her leg due to the significant pain, unable to move her left hip at all, she tried to get into bed, and was unable to move her hip or her left leg and therefore decided to come to the hospital.? She denies any trauma, no fall, no injury, she denies having slipped or injured her hip in any way. ?On arrival to the ED patient hemodynamically stable with no significant abnormal vitals Labs are significant for WBC count of 5.6, hemoglobin of 9.2 with a baseline around 10.3, hematocrit 29, BUN of 21, creatinine of 1.21 which is increased from her baseline, UA negative, COVID-19 negative. ? Hip x-ray done in the ED shows fracture of the left femoral neck ?orthopedic consult and patient will be admitted for further management Hospital course: 1. left femoral neck fracture due to traumatic fall..Surgery was delayed due to eliquis use. She underwent Left ROSY on and is doing fine post operatively, has been seen by PT, will return to [facility] for DVT prophylaxis 2. Acute blood loss anemia d/t fracture--Hemoglobin has trended down to 7 and will be transfused 2 units today 2.History of chronic systolic heart failure--no acute exacerbation. Continue Lasix 3.? coronary artery disea--statin, coreg 4. Chronic A fib: Will resume Eliqis , continue amiodarone and coreg for rate controlle Time Spent with Patient Time attestation: Total time spent providing and/or coordinating discharge services: Discharge coordination time: Greater than 30 minutes Quality: Stroke Does the patient have a stroke diagnosis?: No Physical Exam Verdana 4l Vital Signs: Verdana 4d Verdana 4d Vital Signs: Verdana 4d Verdana 4Bd Selected Entries Verdana 4d Electrician Manager New 4d Electrician Manager New 4d 10/07/21 07:56 10/07/21 09:15 Electrician Manager New 4d Temperature 99.0 F Electrician Manager New 4d Pulse RateRate 65 Blood Pressure 113/55 L Pulse Oximetry 94 Const: Other: General: AO X 3, no acute distress Resp: CTA bilateral CVS: S1,S2,RRR GI: +BS, NT, no distention Skin: No rash, surgery site d/c/i Neuro: motor grossly intact Psych: appropriate affect DS: Data Data Completed and Pending Pending studies at discharge: Pending at discharge 10/04/21 11:16 Surgical [PTH] Routine Labs on day of discharge: Laboratory Results - last 24 hr 10/06/21 10/06/21 10/06/21 06:00 06:00 07:56 WBC 10.8 RBC 2.23 L Hgb 7.0 L* Hct 22.3 L MCV 100.0 H MCH 31.4 MCHC 31.4 RDW 15.1 Plt Count 151 L MPV 9.6 Immature Gran % (Auto) 0.7 H Neut % (Auto) 83.4 H Lymph % (Auto) 4.4 L Coke % (Auto) 11.3 H Eos % (Auto) 0.1 Baso % (Auto) 0.1 Lymph # (Auto) 0.5 L Coke # (Auto) 1.2 Eos # (Auto) 0.0 Baso # (Auto) 0.0 Abs Immat Gran (auto) 0.08 H Absolute Neuts (auto) 9.0 H Absolute Nucleated RBC 0.000 Nucleated RBC % (auto) 0.0 Sodium 137 Potassium 4.5 Chloride 105 Carbon Dioxide 26 Anion Gap 11 L BUN 23 H Creatinine 0.78 Estim Creat Clear Calc 68.7 Estimated GFR > 60 Random Glucose 100 Calcium 8.3 L Crossmatch See Detail Discharge Plan Discharge Anticipated Discharge Date/Time: 10/07/21 09:34 Patient Disposition: Xfer SNF Discharge Diagnosis: Hip fracture Referrals: [facility] [Other] - 1 Day ([facility] FOR TRANSPORTATION) Mine Vázquez PA-C [Physician Bellows Filler] - 1 Week (10/19/21 2:[address] [facility] Surgeons Mine Vázquez PA-C) Wing Emerson MD [Primary Care Provider] - 1 Week Discharge Medications: New oxycodone 5 mg tablet 5 mg PO Q6H PRN (Reason: pain (scale score 7-10)) Qty: 14 0RF docusate sodium 100 mg Capsule 100 mg PO BEDTIME 14 Days Qty: 14 0RF acetaminophen 325 mg capsule 650 mg PO QID PRN (Reason: pain) 30 Days Qty: 240 0RF Continued Eliquis 5 mg tablet 5 mg PO BID 30 Days Qty: 60 5RF amiodarone 200 mg tablet 100 mg PO DAILY Qty: 30 3RF carvedilol 12.5 mg tablet 12.5 mg PO BID 90 Days Qty: 180 3RF multivitamin Tablet 1 tab PO DAILY 0RF polyethylene glycol 3350 [Purelax] 17 gram Powder In Packet 17 g PO DAILY 0RF cholecalciferol (vitamin D3) [Vitamin D3] 25 mcg (1,000 unit) Tablet 25 mcg PO BID 0RF celecoxib 100 mg capsule 1 cap PO BID 0RF omeprazole 20 mg capsule,delayed release(DR/EC) 20 mg PO DAILY 0RF loratadine 10 mg tablet 10 mg PO DAILY 0RF tramadol 50 mg tablet 100 mg PO TID 0RF atorvastatin 20 mg tablet 20 mg PO DAILY 0RF clonazepam 2 mg tablet 2 mg PO BEDTIME PRN (Reason: Restless Leg(S)) 0RF No Action valsartan 160 mg tablet 160 mg PO DAILY Qty: 90 3RF Label Comments: PT stated that PCP recently cut dose in half furosemide 20 mg tablet 20 mg PO Q48H PRN (Reason: Edema) Qty: 90 2RF Discharge Orders: Discharge Order (Routine); Ordered 10/07/21 Ordered By: Regan Munguia Diet: advance to usual diet Activity on Discharge: As tolerated Stand Alone Forms: Patient Portal Discharge page Care Plan Goals: Rehabilation from hip fracture Health Concerns: Hip fracture Plan of Treatment: to short term rehab for therapy including PT, OT, eliquis for dVT prophylaxis, oxycodone for pain control Assessment: * Physical Therapy for Total hip arthroplasty: posterior precautions, gait training, ROM, strength * Limit stair climbing * No showering, no tub bath-keep dressing clean, dry and intact * No driving x6 weeks * resume nabeel 10/07/21 * Follow up with [facility] Orthopedics in 2 weeks Discharge Date/Time: 10/07/21 14:20
--- NOTE | 2021-10-06 08:51 | HO.PM.IMPN ---
Subjective Subjective Date of Service: 10/06/21 Interval History: f/u on hip fracture, no pain hgb is 7, no active bleed Review of Systems no feve no hip pain Physical Exam Vital Signs: Vital Signs: Last Vital Signs Temp 96.8 F 10/06/21 07:51 Pulse 64 10/06/21 07:51 Resp 18 10/06/21 07:51 BP 115/58 L 10/06/21 07:51 Pulse Ox 94 10/06/21 07:51 BMI result Body Mass Index 27.7 Const: Other: General: AO X 3, no acute distress Resp: CTA bilateral CVS: S1,S2, iregular GI: +BS, NT, no distention Skin: No rash, Neuro: motor grossly intact Psych: appropriate affect Objective Data Active Medications Amiodarone HCl (Amiodarone Hcl 200 Mg Tablet) 100 mg PO DAILY [facility] Last Admin: 10/05/21 08:28 Dose: 100 mg Documented by: LEDY Atorvastatin Calcium (Atorvastatin Calcium 20 Mg Tablet) 20 mg PO BEDTIME [facility] Last Admin: 10/05/21 20:58 Dose: 20 mg Documented by: NAOMY Carvedilol (Carvedilol 3.125 Mg Tablet) 6.25 mg PO BID [facility]; Protocol Last Admin: 10/05/21 20:58 Dose: 6.25 mg Documented by: NAOMY Clonazepam (Clonazepam 1 Mg Tablet) 2 mg PO BEDTIME PRN PRN Reason: Restless Leg(S) Last Admin: 10/03/21 20:59 Dose: 2 mg Documented by: CASTSAMANTHA Docusate Sodium (Docusate Sodium 100 Mg Capsule) 100 mg PO BEDTIME [facility] Last Admin: 10/05/21 20:58 Dose: 100 mg Documented by: NAOMY Enoxaparin Sodium (Enoxaparin Sodium 40 Mg/0.4 Ml Syringe) 40 mg SUBCUT Q24H [facility] Last Admin: 10/05/21 09:32 Dose: 40 mg Documented by: LEDY Furosemide (Furosemide 20 Mg Tablet) 20 mg PO DAILY PRN; Protocol PRN Reason: Edema Loratadine (Loratadine 10 Mg Tablet) 10 mg PO DAILY [facility] Last Admin: 10/05/21 08:27 Dose: 10 mg Documented by: LEDY Morphine Sulfate (Morphine Sulfate 2 Mg/Ml Cartridge) 1 mg IVPUSH Q4H PRN; Protocol PRN Reason: Pain, Mild (Pain Scale 1-3) Last Admin: 10/05/21 14:14 Dose: 1 mg Documented by: LEDY Multivitamins/Vitamin C (Multivitamin Tablet) 1 tab PO DAILY [facility] Last Admin: 10/05/21 08:27 Dose: 1 tab Documented by: LEDY Omeprazole (Omeprazole 20 Mg Capsule.Dr) 20 mg PO DAILY@0630 [facility] Last Admin: 10/06/21 06:30 Dose: 20 mg Documented by: MARILYN Ondansetron HCl (Ondansetron Hcl 4 Mg/2 Ml Vial) 4 mg IVPUSH ONCE PRN PRN Reason: Nausea and Vomiting Last Admin: 10/04/21 12:47 Dose: 4 mg Documented by: TOOTIE Pharmacy Consult (Consult Rx Perform Med Rec) 1 each MISCELLANE ONCE PRN PRN Reason: Consult order Polyethylene Glycol (Polyethylene Glycol 3350 17 Gm Powd.Pack) 17 gm PO DAILY [facility] Last Admin: 10/05/21 08:28 Dose: 17 gm Documented by: LEDY Sodium Chloride (0.9 % Sodium Chloride Flush 3 Ml Syringe) 3 ml IVFLUSH QSHIFT [facility] Last Admin: 10/05/21 20:59 Dose: 3 ml Documented by: EDGARM Tramadol HCl (Tramadol Hcl 50 Mg Tablet) 100 mg PO TID [facility] Last Admin: 10/05/21 20:58 Dose: 100 mg Documented by: ODRISM Valsartan (Valsartan 160 Mg Tablet) 160 mg PO DAILY [facility]; Protocol Last Admin: 10/03/21 08:36 Dose: Not Given Documented by: COTEMA Non-Admin Reason: Physician Held Med Labs CBC & Chem 7: 10/06/21 06:00 10/06/21 06:00 Labs: Laboratory Results - last 24 hr 10/06/21 10/06/21 10/06/21 06:00 06:00 07:56 MCV 100.0 H MCH 31.4 MCHC 31.4 RDW 15.1 Plt Count 151 L MPV 9.6 Immature Gran % (Auto) 0.7 H Neut % (Auto) 83.4 H Lymph % (Auto) 4.4 L Mcculloch % (Auto) 11.3 H Eos % (Auto) 0.1 Baso % (Auto) 0.1 Lymph # (Auto) 0.5 L M[place]ulloch # (Auto) 1.2 Eos # (Auto) 0.0 Baso # (Auto) 0.0 Abs Immat Gran (auto) 0.08 H Absolute Neuts (auto) 9.0 H Absolute Nucleated RBC 0.000 Nucleated RBC % (auto) 0.0 Anion Gap 11 L Estim Creat Clear Calc 68.7 Estimated GFR > 60 Random Glucose 100 Calcium 8.3 L Crossmatch See Detail Assessment and Plan (1) Left displaced femoral neck fracture: Status: Acute (2) CAD (coronary artery disease): Status: Acute (3) HTN (hypertension): Status: Acute (4) Paroxysmal atrial fibrillation: Status: Acute Assessment and Plan: 1. left femoral neck fracture due to traumatic fall..Surgery was delayed due to eliquis use. She underwent Left ROSY on and is doing fine post operatively, has been seen by PT, will return to [facility] for DVT prophylaxis 2. Acute blood loss anemia d/t fracture--Hemoglobin has trended down to 7 and will be transfused 2 units today 2.History of chronic systolic heart failure--no acute exacerbation. Continue Lasix 3.? coronary artery disea--statin, coreg 4. Chronic A fib: Will resume Eliqis , continue amiodarone and coreg for rate controlle disop: possibly dc later today after transfusion Quality Stroke Does the patient have a stroke diagnosis?: No VTE Prior VTE?: No VTE Risk Level:: Medical - moderate - high VTE Device Contraindication: Treatment Not Indicated VTE Drug Contraindication: N/A - Med Ordered
[2021-10-06] MEDS: Enoxaparin Sodium 40 MG/0.4 ML SYRINGE SUBCUT (09:17)
[2021-10-06] MEDS: polyethylene glycoL 3350 17 GM POWD.PACK PO (09:18)
[2021-10-06] MEDS: Valsartan 160 MG TABLET PO (09:18)
[2021-10-06] MEDS: traMADoL HCL 50 MG TABLET 100 MG PO ×3 (09:18→20:31)
[2021-10-06] MEDS: Loratadine 10 MG TABLET PO (09:19)
[2021-10-06] MEDS: Multivitamin TABLET 1 TAB PO (09:19)
[2021-10-06] MEDS: carvediloL 3.125 MG TABLET 6.25 MG PO ×2 (09:19→20:30)
[2021-10-06] MEDS: Amiodarone HCL 200 MG TABLET 100 MG PO (09:20)
[2021-10-06] MEDS: 0.9 % Sodium Chloride Flush 3 ML SYRINGE IVFLUSH ×2 (09:22→23:29)
--- NOTE | 2021-10-06 13:23 | MHC.CM.PN ---
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
[2021-10-06] MEDS: Furosemide 20 MG/2 ML VIAL IVPUSH (14:28)
[2021-10-06 15:10] LABS: COVID-19 Test Negative (Negative); IDNOW Serial# 08D9AD1C
[2021-10-06] MEDS: Docusate Sodium 100 MG CAPSULE PO (20:29)
[2021-10-06] MEDS: Atorvastatin Calcium 20 MG TABLET PO (20:29)
[2021-10-07 03:56] VITALS: BP 107/54; PULSE 61; RESP 18; TEMP 36.8; O2SAT 94
[2021-10-07] MEDS: Omeprazole 20 MG CAPSULE.DR PO (05:49)
[2021-10-07] MEDS: Morphine Sulfate 2 MG/ML CARTRIDGE 1 MG IVPUSH (07:21)
[2021-10-07] MEDS: 0.9 % Sodium Chloride Flush 3 ML SYRINGE IVFLUSH (07:22)
[2021-10-07 07:56] VITALS: BP 113/55; PULSE 65; RESP 18; TEMP 37.2; O2SAT 94
[2021-10-07 09:15] VITALS: BP 113/55; PULSE 65; O2SAT 94
[2021-10-07 09:21] LABS: MANUAL DIFF FLAG NO
[2021-10-07 09:23] LABS: Basophils Percent Auto 0.2 % (0-2); Eosinophils Absolute Auto 0.2 X10*3/uL (0.0-0.4); Eosinophils Percent Auto 1.9 % (0-4); Hematocrit 32.1 % (37.0-47.0); Hemoglobin 10.4 g/dl (12.0-16.0); Imm Gran Abs Auto 0.05 X10*3/uL (0.00-0.03); Imm Gran Pct Auto 0.6 % (0.0-0.4); Lymphocytes Absolute Auto 0.5 X10*3/uL (1.2-4.9); Lymphocytes Percent Auto 5.6 % (20-40); Mean Corpuscular HGB Conc 32.4 g/dl (31.0-35.0); Mean Corpuscular Hemoglobin 31.9 pg (27.0-33.0); Mean Corpuscular Volume 98.5 fL (80.0-98.0); Mean Platelet Volume 9.7 fL (9.4-12.3); Monocytes Absolute Auto 0.9 X10*3/uL (0.1-1.2); Neutrophils Absolute Auto 6.6 x10*3/uL (2.0-8.3); Neutrophils Percent Auto 80.7 % (45-73); Platelet Count 178 X10*3/uL (160-400); Red Blood Count 3.26 X10*6/uL (4.20-5.50); Red Cell Distribution Width 16.1 % (11.0-16.0); White Blood Count 8.2 X10*3/uL (4.8-10.8)
[2021-10-07 09:32] LABS: Anion Gap 16 (12-20); Blood Urea Nitrogen 30 mg/dL (9-16); Calcium 8.6 mg/dL (8.4-10.2); Carbon Dioxide 25 mmol/L (22-29); Chloride 103 mmol/L (96-108); Creatinine Clr Calc Pharmacy 61.6; Estimated Glomerular Filt Rate > 60; Glucose Random 103 mg/dL (60-115); Sodium 140 mmol/L (135-145)
[2021-10-07] MEDS: Valsartan 160 MG TABLET PO (09:57)
[2021-10-07] MEDS: carvediloL 3.125 MG TABLET 6.25 MG PO (09:57)
[2021-10-07] MEDS: Amiodarone HCL 200 MG TABLET 100 MG PO (09:58)
[2021-10-07] MEDS: Loratadine 10 MG TABLET PO (09:58)
[2021-10-07] MEDS: Multivitamin TABLET 1 TAB PO (09:59)
[2021-10-07] MEDS: Enoxaparin Sodium 40 MG/0.4 ML SYRINGE SUBCUT (10:00)
[2021-10-07] MEDS: polyethylene glycoL 3350 17 GM POWD.PACK PO (10:00)
[2021-10-07 11:38] VITALS: BP 121/56; PULSE 70; RESP 18; TEMP 36.9; O2SAT 94
--- NOTE | 2021-10-07 14:28 | PC.NURSE ---
report called to [facility].
== END 2021-10-07 14:20 | disposition skilled nursing facility (03) | DRG 522 ==
LOC: HO.ED 21:59 → HO.EDOVER 10-02 00:22 → HO.S3 10-03 07:25
PROVIDERS: Orthopaedic Surgery; Physician Assistant; Admitting Provider Internal Medicine; Emergency Provider Emergency Medicine; PCP Family Medicine; Visit Provider Internal Medicine
PROC: 0SRB03A Replacement of Left Hip Joint with Ceramic Synthetic Substitute, Uncemented, Open Approach (ICD-10-PCS; CPT 27130; principal; 2021-10-04 09:00)
DX: M84.652A Pathological fracture in other disease, left femur, initial encounter for fracture (principal); I50.22 Chronic systolic (congestive) heart failure; N17.9 Acute kidney failure, unspecified; I42.9 Cardiomyopathy, unspecified; D62 Acute posthemorrhagic anemia; M16.12 Unilateral primary osteoarthritis, left hip; I25.10 Atherosclerotic heart disease of native coronary artery without angina pectoris; I48.0 Paroxysmal atrial fibrillation; I44.7 Left bundle-branch block, unspecified; I11.0 Hypertensive heart disease with heart failure; Z20.822 Contact with and (suspected) exposure to COVID-19; Z79.01 Long term (current) use of anticoagulants; Z79.1 Long term (current) use of non-steroidal anti-inflammatories (NSAID); Z95.810 Presence of automatic (implantable) cardiac defibrillator; Z79.891 Long term (current) use of opiate analgesic; Z79.899 Other long term (current) drug therapy
CPT/HCPCS: 36415; 71045; 72170; 73502; 80048; 81003; 85025; 86850; 86900; 86901; 86923; 87635; 88305; 88311; 93005; 97110; 97162; 97166; 97530; 97535; 99285; 99499; C1776; J0131; J0690; J1100; J1650; J1940; J2250; J2270; J2370; J2405; J3010; P9016

== ENCOUNTER → 2021-10-19 14:24 | Outpatient (BNVA) | payer MEDICARE, SELFPAY | PROVIDERS: PCP Family Medicine; Visit Provider Physician Assistant | DX: Z47.1 Aftercare following joint replacement surgery (principal); S72.002D Fracture of unspecified part of neck of left femur, subsequent encounter for closed fracture with routine healing; Z96.642 Presence of left artificial hip joint | CPT/HCPCS: 99212; J1040 ==

== ENCOUNTER → 2021-11-19 15:35 | Outpatient (BNVA) | payer MEDICARE, SELFPAY | PROVIDERS: PCP Family Medicine; Visit Provider Physician Assistant | DX: S72.92XD Unspecified fracture of left femur, subsequent encounter for closed fracture with routine healing (principal); Z96.642 Presence of left artificial hip joint | CPT/HCPCS: 99212 ==

== ENCOUNTER 2022-01-12 10:26 | Outpatient (REF) | payer MEDICARE, SELFPAY ==
[2022-01-12 12:22] LABS: Hematocrit 34.8 % (37.0-47.0); Hemoglobin 10.7 g/dl (12.0-16.0); Mean Corpuscular HGB Conc 30.7 g/dl (31.0-35.0); Mean Corpuscular Hemoglobin 30.7 pg (27.0-33.0); Mean Platelet Volume 9.7 fL (9.4-12.3); Platelet Count 204 X10*3/uL (160-400); Red Blood Count 3.48 X10*6/uL (4.20-5.50); White Blood Count 5.7 X10*3/uL (4.8-10.8)
[2022-01-12 13:03] LABS: B Type Natriuretic Peptide 37 pg/mL (<100)
[2022-01-12 13:06] LABS: Anion Gap 14 (12-20); Blood Urea Nitrogen 18 mg/dL (9-16); Calcium 9.1 mg/dL (8.4-10.2); Carbon Dioxide 25 mmol/L (22-29); Chloride 104 mmol/L (96-108); Estimated Glomerular Filt Rate 59; Glucose Random 95 mg/dL (60-115); Potassium 5.4 mmol/L (3.3-5.1); Sodium 138 mmol/L (135-145)
== END 2022-01-12 10:27 | disposition home or self-care (01) ==
LOC: HO.LAB 10:26
PROVIDERS: PCP Family Medicine; Visit Provider Internal Medicine Cardiovascular Disease
DX: I48.0 Paroxysmal atrial fibrillation (principal); I50.22 Chronic systolic (congestive) heart failure; Z95.810 Presence of automatic (implantable) cardiac defibrillator
CPT/HCPCS: 36415; 80048; 83880; 85027; 93005; 99212

== ENCOUNTER → 2022-01-19 15:30 | Outpatient (BNVA) | payer MEDICARE, SELFPAY | PROVIDERS: Visit Provider Physician Assistant | DX: Z47.1 Aftercare following joint replacement surgery (principal); Z96.642 Presence of left artificial hip joint | CPT/HCPCS: 99212 ==

== ENCOUNTER 2022-01-28 10:17 | Outpatient (REF) | payer MEDICARE, SELFPAY ==
[2022-01-28 11:05] LABS: MANUAL DIFF FLAG NO
[2022-01-28 12:19] LABS: Basophils Percent Auto 0.4 % (0-2); Eosinophils Absolute Auto 0.2 X10*3/uL (0.0-0.4); Hematocrit 32.8 % (37.0-47.0); Hemoglobin 10.2 g/dl (12.0-16.0); Imm Gran Abs Auto 0.03 X10*3/uL (0.00-0.03); Imm Gran Pct Auto 0.4 % (0.0-0.4); Lymphocytes Absolute Auto 0.5 X10*3/uL (1.2-4.9); Lymphocytes Percent Auto 7.1 % (20-40); Mean Corpuscular HGB Conc 31.1 g/dl (31.0-35.0); Mean Corpuscular Hemoglobin 30.9 pg (27.0-33.0); Mean Corpuscular Volume 99.4 fL (80.0-98.0); Mean Platelet Volume 9.9 fL (9.4-12.3); Monocytes Absolute Auto 0.8 X10*3/uL (0.1-1.2); Monocytes Percent Auto 10.7 % (2-11); Neutrophils Absolute Auto 5.7 x10*3/uL (2.0-8.3); Neutrophils Percent Auto 78.4 % (45-73); Platelet Count 207 X10*3/uL (160-400); Red Cell Distribution Width 14.4 % (11.0-16.0); White Blood Count 7.3 X10*3/uL (4.8-10.8)
[2022-01-28 12:40] LABS: Anion Gap 10 (12-20); Blood Urea Nitrogen 17 mg/dL (9-16); Calcium 8.5 mg/dL (8.4-10.2); Carbon Dioxide 30 mmol/L (22-29); Chloride 103 mmol/L (96-108); Estimated Glomerular Filt Rate 59; Glucose Random 84 mg/dL (60-115); Potassium 5.1 mmol/L (3.3-5.1); Sodium 138 mmol/L (135-145)
== END 2022-01-28 10:18 | disposition home or self-care (01) ==
LOC: HO.LAB 10:17
PROVIDERS: Orthopaedic Surgery; PCP Family Medicine; Visit Provider Internal Medicine Cardiovascular Disease
DX: Z01.812 Encounter for preprocedural laboratory examination (principal); I48.0 Paroxysmal atrial fibrillation; I50.22 Chronic systolic (congestive) heart failure
CPT/HCPCS: 36415; 80048; 85025

== ENCOUNTER 2022-04-19 07:35 | Outpatient (REF) | payer MEDICARE, SELFPAY ==
--- NOTE | ~2022-04-19 | XR_ITS ---
EXAMINATION: XR PELVIS CLINICAL INFORMATION: Pain. COMPARISON: Prior radiographs, most recently 10/07/2021. TECHNIQUE: 2 AP view of the pelvis are submitted. FINDINGS: There is bony demineralization. There is an intact left hip total arthroplasty, without hardware failure or loosening noted. Again, there is mild osteoarthritic change of the right hip. The right femoral head remains smooth. No acute fracture or dislocation is seen. There are lower midline pelvic surgical clips. XR/XR pelvis 1-2V IMPRESSION: 1. There is an intact left hip total arthroplasty, without hardware failure or loosening noted. 2. There is mild osteoarthritic change of the right hip.
== END 2022-04-19 07:36 | disposition home or self-care (01) ==
LOC: HO.HOSX 07:35
PROVIDERS: Visit Provider Physician Assistant
DX: Z96.642 Presence of left artificial hip joint (principal)
CPT/HCPCS: 72170; 99212

== ENCOUNTER 2022-05-14 10:33 | Day surgery (SDC) | payer MEDICARE, SELFPAY ==
--- NOTE | 2022-05-13 09:20 | P.CONAN_ITS ---
Documented by User: Sendy Kemp NP 05/13/22 09:27 HPI - Anesthesia Eval Consult details Narrative: 71yo F for Upper Endoscopy and Colonoscopy Eliquis for afib Optimized per cardiology [facility] Active Problems Active Problems: All Active Problems (Updated 05/10/22 @ 09:25 by Gretchen Rivers, JUANITO) Left displaced femoral neck fracture (Acute) History of total left hip arthroplasty (Acute) Paroxysmal atrial fibrillation (Acute) Biventricular ICD (implantable cardioverter-defibrillator) in place (Acute ~04/2020) Chronic systolic heart failure (Acute) Past Medical History Medical History Biventricular ICD (implantable cardioverter-defibrillator) in place (~04/2020) CAD (coronary artery disease) Cardiomyopathy Chronic systolic heart failure History of uterine cancer HTN (hypertension) LBBB (left bundle branch block) Mild intermittent asthma Osteoarthritis of left hip Paroxysmal atrial fibrillation Family History Family History Father Cancer Mother No problems noted. Surgical History Surgical History History of permanent cardiac pacemaker placement History of total left hip replacement Hx of hernia repair Hx of hysterectomy Social History Social History Household Members: Family Household Members Other:: granddaughter Housing: House Do you presently have visiting nurse or other home services: No Alcohol intake: never Patient Tobacco Use Status: Never used Tobacco Use of substances other than those prescribed or required for medical reasons: No Are you DNR?: No Advance Directives: No Advance Directives Information Provided: Yes service: No Current occupational status: retired Current occupation: rt handed Meds Allergies Allergy/AdvReac Type Severity Reaction Status Date / Time levofloxacin [From LEVAQUIN] Allergy Intermediate RASH Verified 05/10/22 09:26 Darvocet-N 50 Allergy Mild hives Uncoded 05/10/22 09:26 Sulfacet-R Allergy Unknown gi Uncoded 05/10/22 09:26 Home Medications Medication Instructions Recorded Confirmed Last Taken Type atorvastatin 20 mg tablet 20 mg PO DAILY 08/15/20 05/10/22 10/01/21 21:00 History loratadine 10 mg tablet 10 mg PO DAILY 08/15/20 05/10/22 10/01/21 09:00 History omeprazole 20 mg capsule,delayed 20 mg PO DAILY 08/15/20 05/10/22 10/01/21 09:00 History release tramadol 50 mg tablet 100 mg PO TID 08/15/20 05/10/22 10/01/21 21:00 History clonazepam 2 mg tablet 2 mg PO BEDTIME PRN Restless Leg(S) 07/09/21 05/10/22 09/30/21 21:00 History cholecalciferol (vitamin D3) 25 25 mcg PO BID 08/16/21 05/10/22 10/01/21 21:00 History mcg (1,000 unit) tablet (Vitamin D3) multivitamin 1 tab PO DAILY 08/16/21 05/10/22 10/01/21 09:00 History polyethylene glycol 3350 17 gram 17 g PO DAILY 08/16/21 05/10/22 09/30/21 09:00 History oral powder packet (Purelax) levothyroxine 25 mcg tablet 25 mcg PO DAILY 01/12/22 05/10/22 Unknown History Exam Exam Date and Time: May 13, 2022 0920 Pertinent Lab Results Pertinent Lab Results: Laboratory Tests 01/28/22 01/28/22 11:03 11:03 WBC 7.3 Hgb 10.2 L Hct 32.8 L Plt Count 207 Sodium 138 Potassium 5.1 Chloride 103 Carbon Dioxide 30 H BUN 17 H Creatinine 0.94 Narrative Narrative: EKG 12/2021 Details: Atrial sense with ventricular paced rhythm. Cardiac Device Check HF monitor Details: Remote heart failure report generated 05/02/2022.? Heart failure parameters within normal limits blood rising.? Will continue to monitor and follow up Cardiac Device Check ICD 12/2021 Details: Biventricular Medtronic ICD in place.? Programmed in DDDR at 60 beats per minute.? Biventricular pacing 98.2% time.? No arrhythmias noted.? OptiVol is now normalized.? Atrial pacing thresholds excellent and reprogrammed to enhance battery life.? RV pacing thresholds excellent and reprogrammed to enhance battery life.? LV pacing thresholds are adequate and reprogrammed to provide adequate safety.? Atrial ventricular sensing is excellent.? Pacing and shock lead impedance is stable.? Battery life is excellent Assessment and Plan Assessment Anesthesia Assessment: Chart Reviewed Documented by User: David Hicks MD 05/14/22 13:04 [facility] Past Medical History Medical History Biventricular ICD (implantable cardioverter-defibrillator) in place (~04/2020) CAD (coronary artery disease) Cardiomyopathy Chronic systolic heart failure History of uterine cancer HTN (hypertension) LBBB (left bundle branch block) Mild intermittent asthma Osteoarthritis of left hip Paroxysmal atrial fibrillation Functional capacity: uses cane/walker Family History Family History Father Cancer Mother No problems noted. Family history of problems with anesthesia: No Surgical History Surgical History History of permanent cardiac pacemaker placement History of total left hip replacement Hx of hernia repair Hx of hysterectomy History of Problems with Anesthesia: No Social History Social History Household Members: Family Household Members Other:: granddaughter Housing: House Do you presently have visiting nurse or other home services: No Alcohol intake: never Patient Tobacco Use Status: Never used Tobacco Use of substances other than those prescribed or required for medical reasons: No Are you DNR?: No Advance Directives: No Advance Directives Information Provided: Yes service: No Current occupational status: retired Current occupation: rt handed Meds Allergies Allergy/AdvReac Type Severity Reaction Status Date / Time levofloxacin [From LEVAQUIN] Allergy Intermediate RASH Verified 05/10/22 09:26 Darvocet-N 50 Allergy Mild hives Uncoded 05/10/22 09:26 Sulfacet-R Allergy Unknown gi Uncoded 05/10/22 09:26 Home Medications Medication Instructions Recorded Confirmed Last Taken Type atorvastatin 20 mg tablet 20 mg PO DAILY 08/15/20 05/10/22 10/01/21 21:00 History loratadine 10 mg tablet 10 mg PO DAILY 08/15/20 05/10/22 10/01/21 09:00 History omeprazole 20 mg capsule,delayed 20 mg PO DAILY 08/15/20 05/10/22 10/01/21 09:00 History release tramadol 50 mg tablet 100 mg PO TID 08/15/20 05/10/22 10/01/21 21:00 History clonazepam 2 mg tablet 2 mg PO BEDTIME PRN Restless Leg(S) 07/09/21 05/10/22 09/30/21 21:00 History cholecalciferol (vitamin D3) 25 25 mcg PO BID 08/16/21 05/10/22 10/01/21 21:00 History mcg (1,000 unit) tablet (Vitamin D3) multivitamin 1 tab PO DAILY 08/16/21 05/10/22 10/01/21 09:00 History polyethylene glycol 3350 17 gram 17 g PO DAILY 08/16/21 05/10/22 09/30/21 09:00 History oral powder packet (Purelax) levothyroxine 25 mcg tablet 25 mcg PO DAILY 01/12/22 05/10/22 Unknown History Exam Airway Mallampati Class: II TM Dist: >3cm Neck ROM: Full Denture: Upper Loose/Missing/Broken Teeth: Yes (Poor dentition ) Heart: S1,S2 Lungs: b/l breath sounds Assessment and Plan Assessment Anesthesia Assessment: Anesthesia Plan Discussed Final Anesthetic Review Family History of Problems with Anesthesia: No History of Problems with Anesthesia: No NPO: Yes ASA Class: III Final Preanesthetic Review: Meds/Allgs Chart Reviewed, Consent Obtained/Reviewed and Anes Risks/Benef Reviewed Patient Risk: Intermediate Procedure Risk: Intermediate Anesthetic Plan Anesthetic Plan: MAC: Disposition: Standard PACU
[2022-05-14 11:19] VITALS: BMI 29.6
[2022-05-14 11:23] VITALS: BP 127/50; PULSE 60; RESP 18; TEMP 36.6; O2SAT 100
--- NOTE | 2022-05-14 11:42 | MHC.SHP ---
Pre-Procedural Eval Section A Date of Service: 05/14/22 The patient is an INPATIENT: No Changes since office visit: No Cold of Flu in the past 2 weeks, No New Medical Problems, No Changes in Medication and No Patient answered all questions The History & Physical has been completed within 30 days and I have reviewed it.: Yes Section B Chief Complaint: bleeding,epi pain Allergies: Allergies Allergy/AdvReac Type Severity Reaction Status Date / Time levofloxacin [From LEVAQUIN] Allergy Intermediate RASH Verified 05/10/22 09:26 Darvocet-N 50 Allergy Mild hives Uncoded 05/10/22 09:26 Sulfacet-R Allergy Unknown gi Uncoded 05/10/22 09:26 Plan I have reviewed the history and physical and performed a pertinent physical examination on my patient. No changes have occurred unless specified.
[2022-05-14] MEDS: Lactated Ringers 1,000 ML 50 ML IVCONT (11:49)
--- NOTE | 2022-05-14 12:33 | PM.OP ---
Brief Operative Note Date of Service: 05/14/22 Pre-op diagnosis: epigastric pain, diarrhea, rectal bleeding Post-op diagnosis: same Procedure: egd colon Surgeon: Huber Freedman Anesthesia: MAC Was an Director Employee Communications used for this Procedure?: No Estimated blood loss (mL): 5 Pathology: other Condition: stable Disposition: PACU
[2022-05-14 12:41] VITALS: BP 103/47; PULSE 68; RESP 15; TEMP 36.8; O2SAT 98
[2022-05-14 13:08] VITALS: BP 116/45; PULSE 60; RESP 17; TEMP 36.8; O2SAT 100
--- NOTE | 2022-05-14 22:02 | OP_ITS ---
SURGEON: Huber Freedman MD INDICATIONS: Epigastric pain, diarrhea, and rectal bleeding. PREOPERATIVE DIAGNOSIS: POSTOPERATIVE DIAGNOSIS: PROCEDURE PERFORMED: 1. Upper endoscopy with biopsy. 2. Colonoscopy to the cecum with biopsy. ESTIMATED BLOOD LOSS: COMPLICATIONS: ANESTHESIA: ASSISTANTS: SPECIMENS: MEDICATIONS: Monitored anesthesia care. DESCRIPTION OF PROCEDURE: History and physical were performed. The risks and benefits of the procedure were explained to the patient. Informed consent was obtained. The patient was placed in the left lateral decubitus position. The Olympus video gastroscope was introduced into the esophagus, stomach, and duodenum. Examination was performed and the scope was removed. She was repositioned for colonoscopy. A digital rectal exam was performed and was found to be normal. The Olympus pediatric video colonoscope was introduced into the rectum and advanced to the cecum without difficulty. The cecum was identified by transillumination, palpation, and identification of ileocecal valve. Examination was performed and the scope was removed. She tolerated both procedures well and was returned to recovery area in stable condition. FINDINGS: UPPER ENDOSCOPY: Esophagus: The esophagus was normal. There was no esophagitis. Biopsies were obtained from the EG junction. Stomach: The stomach showed no evidence of masses, ulcers, or polyps. Antral biopsies were obtained to rule out H pylori. Duodenum: The bulb and second portion were normal. COLONOSCOPY: The terminal ileum was not examined. The visualized colonic mucosa was within normal limits without evidence of masses or ulcers. 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 Biopsies were obtained from the mucosa. Retroflexed examination was limited as the patient had decreased sphincter tone and could not really hold air well. IMPRESSION: 1. Normal upper endoscopy. 2. Radiation colitis. RECOMMENDATION: Follow up the biopsy results. No screening needed due to age. MD IVON Childs/BECK / [id number]
== END 2022-05-14 13:15 | disposition home or self-care (01) ==
PROVIDERS: PCP Family Medicine; Visit Provider Internal Medicine Gastroenterology
PROC: (CPT 45380; principal; 2022-05-14 11:50)
DX: K62.5 Hemorrhage of anus and rectum (principal); R19.7 Diarrhea, unspecified; K52.0 Gastroenteritis and colitis due to radiation; K21.9 Gastro-esophageal reflux disease without esophagitis; E78.00 Pure hypercholesterolemia, unspecified; I42.9 Cardiomyopathy, unspecified; I25.10 Atherosclerotic heart disease of native coronary artery without angina pectoris; I10 Essential (primary) hypertension; J45.20 Mild intermittent asthma, uncomplicated; I48.0 Paroxysmal atrial fibrillation; Z79.01 Long term (current) use of anticoagulants; Z95.810 Presence of automatic (implantable) cardiac defibrillator; Z79.899 Other long term (current) drug therapy; Z88.8 Allergy status to other drugs, medicaments and biological substances; Z85.42 Personal history of malignant neoplasm of other parts of uterus; Z92.21 Personal history of antineoplastic chemotherapy; Z92.3 Personal history of irradiation; Z96.642 Presence of left artificial hip joint
CPT/HCPCS: 45380; 43239; 88305; 88342

== ENCOUNTER → 2022-07-08 10:09 | Outpatient (REF) | payer MEDICARE, SELFPAY ==
--- NOTE | 2022-07-08 10:12 | CA_ITS ---
Transthoracic Echocardiogram Patient (Last, First, Middle): Marlin Correa J Gender: Female Date of : 1950 Age: 72 Procedure Date: 07/08/2022 Procedure Type: Transthoracic Echocardiogram Location: OP Height: 165.1 cm Weight: 81.65 kg BSA: 1.89 m2 Heart Rate: 69 bpm BP: 116 / 48 mmHg Facilities Director: PATRICK Referring MD: Marvin Swanson MD Integrity Consultant: Marvin Swanson MD Symptoms: I50.22 - Chronic systolic (congestive) heart failure Study Quality: Adequate ECG Rhythm: Sinus Conclusions: - 1. Moderately reduced LV ejection fraction with LVEF of 35-40% with impaired relaxation filling pattern next 2. Mildly dilated left atrium 3. Mild aortic stenosis 4. Normal RV systolic pressure 5. Small to moderate pericardial effusion near the left ventricle Findings Left Ventricle Normal left ventricular cavity size. There is normal left ventricular wall thickness. The left ventricular systolic function is moderately decreased. The visually estimated ejection fraction is between 35-40%. Spectral Doppler is indicative of an impaired relaxation filling pattern. E/E prime ratio is between 8 and 15 consistent with indeterminate filling pressures. Right Ventricle Normal right ventricular cavity size and systolic function. There is an ICD wire seen in the right ventricle. Atria The left atrium is mildly dilated. There is no evidence of interatrial shunt. The right atrium is likely dilated. A pacemaker wire is identified in the right atrium. Aortic Valve The aortic valve was not well visualized. There is mild calcification of the aortic valve. There is mild aortic valve stenosis. The mean gradient is 7 mmHg. The aortic valve area is 1.61 cm2. There is no aortic valve regurgitation. Mitral Valve There is mild anterior and posterior mitral leaflet thickening. There is mild mitral annular calcification. There is trace mitral valve regurgitation. There is no mitral valve stenosis. Pulmonic Valve The pulmonic valve was not well visualized. Tricuspid Valve Likely normal tricuspid valve structure and function. Tricuspid regurgitation envelope is inadequate for calculation of right ventricular systolic pressure. Normal right atrial pressure. Great Vessels All visible segments of the aorta are normal in size. The pulmonary artery was not well visualized. Venous The inferior vena cava is normal in size and collapses greater than 50% with inspiration. Pericardium/Pleural There is a moderate loculated pericardial effusion overlying the left ventricle. Prior Study Comparison Changes noted compared to prior study dated: 07/01/2021. LV systolic measured to be moderately reduced on this study Measurements 2D Linear Measurements IVSd: 0.84 0.6-0.9/0.6-1.0 cm LVIDd: 4.29 3.9-5.3/4.2-5.9 cm LVIDd Index: 2.27 2.4-3.2/2.2-3.1 cm/m2 LVIDs: 3.69 2.0-3.6 cm LVPWd: 0.77 0.7-1.1 cm LA Diam: 3.90 2.7-3.8/3.0-4.0 cm LAIDs Index: 2.06 1.5-2.3 cm/m2 LV Mass: 131.48 67-162/88-224 g LV Mass Index: 69.57 43-95/49-115 g/m2 LVOT Diam: 2.00 3.0+(-)1.3 cm 2D Systolic Function EF 4C: 39.50 >55% EF 2C: 40.40 >55% EF BiP: 39.30 >55% Mitral Valve MV Pk E: 1.00 MV PK A: 0.99 MV Decel Time: 241.00 E/A: 1.00 E'Lateral: 7.51 E'Medial: 6.53 E/E' Med: 15.30 E/E' Lat: 13.30 PHT: 71.00 MVA PHT: 3.10 Decel [place]: 4.16 Aortic Valve AoV Pk Kyrie: 1.82 AoV Mn Kyrie: 1.30 AoV VTI: 0.46 AoV Pk Grad: 13.00 Aov Mn Grad: 7.00 RADHA Cont.VTI: 1.61 LVOT LVOT Pk Kyrie: 0.99 LVOT Mn Kyrie: 0.71 LVOT VTI: 0.24 LVOT Pk Grad: 4.00 LVOT Mn Grad: 2.00 LVOT Diam: 2.00 LVOT Area: 3.14 Diastolic Function MV Pk E: 1.00 MV Pk A: 0.99 E/A: 1.00 E'Medial: 6.53 E/E' Med: 15.30 E' Laterial: 7.51 E/E' Lat: 13.30 Right Ventricle TAPSE (mm): 23.40 TVS' Kyrie: 11.50 Tricuspid Valve RA Press: 3.00 Great Vessels Aorta Sinus of Valsalva: 2.50 2.0-3.5 cm Ao Asc: 3.40 2.1-3.4 cm Pulmonary Veins Pulm Vein S/D 1.40 Pulmonary Valve PV Pk Kyrie: 0.76 Peak PV Grad: 2.00 Updated in Other Vendor System with Status of Final Marvin Swanson MD electronically signed on 07/08/2022 4:29:00 PM with status of Final
== END ==
LOC: HO.CARD 10:09
PROVIDERS: PCP Family Medicine; Visit Provider Internal Medicine Cardiovascular Disease
DX: I50.22 Chronic systolic (congestive) heart failure (principal)
CPT/HCPCS: 93306

== ENCOUNTER → 2022-07-22 10:45 | Outpatient (BNVA) | payer MEDICARE, SELFPAY | PROVIDERS: PCP Family Medicine; Visit Provider Internal Medicine Cardiovascular Disease | DX: Z45.02 Encounter for adjustment and management of automatic implantable cardiac defibrillator (principal); I50.22 Chronic systolic (congestive) heart failure; I48.0 Paroxysmal atrial fibrillation | CPT/HCPCS: 93005; 99212 ==

== ENCOUNTER 2022-07-28 10:55 | Outpatient (REF) | payer MEDICARE, MEDICAID, SELFPAY ==
[2022-07-28 12:05] LABS: Anion Gap 17 (12-20); Blood Urea Nitrogen 19 mg/dL (9-16); Calcium 8.8 mg/dL (8.4-10.2); Carbon Dioxide 25 mmol/L (22-29); Chloride 106 mmol/L (96-108); Estimated Glomerular Filt Rate > 60; Glucose Random 100 mg/dL (60-115); Potassium 4.9 mmol/L (3.3-5.1); Sodium 143 mmol/L (135-145)
== END 2022-07-28 10:56 | disposition home or self-care (01) ==
LOC: HO.LAB 10:55
PROVIDERS: PCP Family Medicine; Visit Provider Internal Medicine Cardiovascular Disease
DX: I50.22 Chronic systolic (congestive) heart failure (principal)
CPT/HCPCS: 36415; 80048

== ENCOUNTER 2022-11-04 12:34 | Outpatient (REF) | payer MEDICARE, SELFPAY ==
--- NOTE | ~2022-11-04 | XR_ITS ---
EXAMINATION: X-RAY BILATERAL KNEES X-RAY RIGHT KNEE CLINICAL INFORMATION: Pain COMPARISON: None TECHNIQUE: AP bilateral knees one view. Right knee 2 views. FINDINGS: Right knee: Severe tricompartment osteoarthritis, with marked joint space loss, osteophytes, sclerosis. There is genu varus present. There is medial subluxation of the femur with respect to the tibia on the frontal radiographs. Bones are osteopenic. No acute fracture or dislocation is seen. Vascular calcification. Left knee: Severe medial and lateral compartment arthritis. Genu varus. Medial subluxation of the femur with respect to the tibia. XR/XR knee standing BI IMPRESSION: Right knee: Severe tricompartment osteoarthritis. Genu varus. Left knee: Severe medial and lateral compartment arthritis.
--- NOTE | ~2022-11-04 | XR_ITS ---
EXAMINATION: X-RAY BILATERAL KNEES X-RAY RIGHT KNEE CLINICAL INFORMATION: Pain COMPARISON: None TECHNIQUE: AP bilateral knees one view. Right knee 2 views. FINDINGS: Right knee: Severe tricompartment osteoarthritis, with marked joint space loss, osteophytes, sclerosis. There is genu varus present. There is medial subluxation of the femur with respect to the tibia on the frontal radiographs. Bones are osteopenic. No acute fracture or dislocation is seen. Vascular calcification. Left knee: Severe medial and lateral compartment arthritis. Genu varus. Medial subluxation of the femur with respect to the tibia. XR/XR knee RT 2V IMPRESSION: Right knee: Severe tricompartment osteoarthritis. Genu varus. Left knee: Severe medial and lateral compartment arthritis.
== END 2022-11-04 12:35 | disposition home or self-care (01) ==
LOC: HO.HOSX 12:34
PROVIDERS: PCP Specialist; Visit Provider Orthopaedic Surgery
DX: M17.11 Unilateral primary osteoarthritis, right knee (principal)
CPT/HCPCS: 73560; 73565; 99212

== ENCOUNTER 2023-01-20 10:05 | Outpatient (REF) | payer MEDICARE, MEDICAID, SELFPAY ==
[2023-01-20 11:13] LABS: Anion Gap 12 (12-20); Blood Urea Nitrogen 28 mg/dL (9-16); Calcium 8.9 mg/dL (8.4-10.2); Carbon Dioxide 31 mmol/L (22-29); Chloride 102 mmol/L (96-108); Estimated Glomerular Filt Rate 49; Glucose Random 85 mg/dL (60-115); Potassium 4.6 mmol/L (3.3-5.1); Sodium 140 mmol/L (135-145)
[2023-01-20 11:16] LABS: B Type Natriuretic Peptide 53 pg/mL (<100)
== END 2023-01-20 10:06 | disposition home or self-care (01) ==
LOC: HO.LAB 10:05
PROVIDERS: PCP Family Medicine; Visit Provider Internal Medicine Cardiovascular Disease
DX: I48.0 Paroxysmal atrial fibrillation (principal); I50.22 Chronic systolic (congestive) heart failure
CPT/HCPCS: 36415; 80048; 83880

== ENCOUNTER 2023-03-01 12:05 | Outpatient (REF) | payer MEDICARE, MEDICAID, SELFPAY ==
[2023-03-01 14:22] LABS: Hematocrit 33.9 % (37.0-47.0); Hemoglobin 10.7 g/dl (12.0-16.0); Mean Corpuscular HGB Conc 31.6 g/dl (31.0-35.0); Mean Corpuscular Hemoglobin 31.8 pg (27.0-33.0); Mean Corpuscular Volume 100.6 fL (80.0-98.0); Mean Platelet Volume 10.3 fL (9.4-12.3); Platelet Count 201 X10*3/uL (160-400); Red Blood Count 3.37 X10*6/uL (4.20-5.50); Red Cell Distribution Width 13.6 % (11.0-16.0); White Blood Count 5.6 X10*3/uL (4.8-10.8)
[2023-03-01 14:51] LABS: Anion Gap 11 (12-20); Blood Urea Nitrogen 25 mg/dL (9-16); Calcium 8.6 mg/dL (8.4-10.2); Carbon Dioxide 29 mmol/L (22-29); Chloride 103 mmol/L (96-108); Estimated Glomerular Filt Rate 47; Glucose Random 89 mg/dL (60-115); Sodium 138 mmol/L (135-145)
== END 2023-03-01 12:06 | disposition home or self-care (01) ==
LOC: HO.LAB 12:05
PROVIDERS: PCP Family Medicine; Referring Provider Family Medicine; Visit Provider Internal Medicine Cardiovascular Disease
DX: I50.22 Chronic systolic (congestive) heart failure (principal); I48.0 Paroxysmal atrial fibrillation; I95.9 Hypotension, unspecified; Z95.810 Presence of automatic (implantable) cardiac defibrillator
CPT/HCPCS: 36415; 80048; 85027; 99212

== ENCOUNTER → 2023-03-29 10:33 | Outpatient (BNVA) | payer MEDICARE, SELFPAY | PROVIDERS: PCP Family Medicine; Referring Provider Family Medicine; Visit Provider Internal Medicine Cardiovascular Disease ==

== ENCOUNTER 2023-04-07 11:04 | Outpatient (REF) | payer MEDICARE, SELFPAY ==
--- NOTE | ~2023-04-07 | XR_ITS ---
EXAMINATION: XR PELVIS CLINICAL INFORMATION: Pain COMPARISON: Previous x-ray most recent March 2022 TECHNIQUE: AP view of the pelvis. FINDINGS: There is a left hip replacement in satisfactory position. No fracture, dislocation or x-ray evidence of loosening. Mild degenerative changes of the right hip joint. Bones of the pelvis are normal. Degenerative changes of the visualized lower lumbar spine. XR/XR pelvis 1-2V IMPRESSION: Satisfactory appearance of left hip replacement.
== END 2023-04-07 11:05 | disposition home or self-care (01) ==
LOC: HO.HOSX 11:04
PROVIDERS: PCP Family Medicine; Visit Provider Orthopaedic Surgery
DX: M25.552 Pain in left hip (principal); M17.0 Bilateral primary osteoarthritis of knee; Z96.642 Presence of left artificial hip joint
CPT/HCPCS: 72170; 99212

== ENCOUNTER → 2023-04-21 12:54 | Outpatient (BNVA) | payer MEDICARE, MEDICAID, SELFPAY | PROVIDERS: PCP Family Medicine; Referring Provider Family Medicine; Visit Provider Nurse Practitioner Family | DX: I48.0 Paroxysmal atrial fibrillation (principal); I31.39 Other pericardial effusion (noninflammatory); I50.22 Chronic systolic (congestive) heart failure; Z79.899 Other long term (current) drug therapy; Z95.810 Presence of automatic (implantable) cardiac defibrillator; Z95.818 Presence of other cardiac implants and grafts | CPT/HCPCS: 99212 ==

== ENCOUNTER → 2023-05-03 23:59 | Outpatient (BNV) | payer MEDICARE, SELFPAY ==
--- NOTE | 2023-05-10 11:24 | A.OFFVIS_ITS ---
Intake Intake Visit Reasons: Remote HF Monitoring- Medtronic Allergies levofloxacin [From LEVAQUIN] Allergy (Intermediate, Verified 04/21/23 13:15) RASH Darvocet-N 50 Allergy (Mild, Uncoded 04/21/23 13:15) hives Sulfacet-R Allergy (Unknown, Uncoded 04/21/23 13:15) gi PFSH Medical History Biventricular ICD (implantable cardioverter-defibrillator) in place (~04/2020) CAD (coronary artery disease) Cardiomyopathy Chronic systolic heart failure History of uterine cancer HTN (hypertension) LBBB (left bundle branch block) Mild intermittent asthma Osteoarthritis of left hip Paroxysmal atrial fibrillation Surgical History History of permanent cardiac pacemaker placement History of total left hip replacement Hx of hernia repair Hx of hysterectomy Family History Father Cancer Mother No problems noted. 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 Heart failure parameters are within normal range 88504-[id number] Cardiac Device Interrogation, cardio physiologic monitor Procedure code (CPT) selection complete Coding Level of Care Code Procedure Only Diagnoses CPT Codes Cardiac Device Check - Cardiac Device 15: [id number] Cardiac Device Interrogation, cardio physiologic monitor ([id number])
== END ==
PROVIDERS: PCP Family Medicine; Visit Provider Internal Medicine Cardiovascular Disease
DX: I48.0 Paroxysmal atrial fibrillation (principal); Z95.810 Presence of automatic (implantable) cardiac defibrillator
CPT/HCPCS: 93297

== ENCOUNTER → 2023-06-03 23:59 | Outpatient (BNV) | payer MEDICARE, MEDICAID, SELFPAY ==
--- NOTE | 2023-06-06 13:00 | MHC.OFFVIS ---
Intake Intake Visit Reasons: Remote HF Monitoring- Medtronic Allergies levofloxacin [From LEVAQUIN] Allergy (Intermediate, Verified 04/21/23 13:15) RASH Darvocet-N 50 Allergy (Mild, Uncoded 04/21/23 13:15) hives Sulfacet-R Allergy (Unknown, Uncoded 04/21/23 13:15) gi PFSH Medical History Biventricular ICD (implantable cardioverter-defibrillator) in place (~04/2020) CAD (coronary artery disease) Cardiomyopathy Chronic systolic heart failure History of uterine cancer HTN (hypertension) LBBB (left bundle branch block) Mild intermittent asthma Osteoarthritis of left hip Paroxysmal atrial fibrillation Surgical History History of permanent cardiac pacemaker placement History of total left hip replacement Hx of hernia repair Hx of hysterectomy Family History Father Cancer Mother No problems noted. Social History Household Members: Family Household Members Other:: granddaughter Housing: House Do you presently have visiting nurse or other home services: No Alcohol intake: never Patient Tobacco Use Status: Never used Tobacco service: No Current occupational status: retired Current occupation: rt handed Office Procedures Cardiac Device Check Cardiac Device Check Details: Remote heart failure report generated 06/03/2023. Heart failure parameters are stable [id number] Cardiac Device Interrogation, cardio physiologic monitor Procedure code (CPT) selection complete Coding Level of Care Code Procedure Only Diagnoses CPT Codes Cardiac Device Check - Cardiac Device 15: [id number] Cardiac Device Interrogation, cardio physiologic monitor ([id number])
== END ==
PROVIDERS: PCP Family Medicine; Visit Provider Internal Medicine Cardiovascular Disease
DX: I50.22 Chronic systolic (congestive) heart failure (principal); Z95.810 Presence of automatic (implantable) cardiac defibrillator
CPT/HCPCS: 93297

== ENCOUNTER → 2023-07-04 23:59 | Outpatient (BNV) | payer MEDICARE, MEDICAID, SELFPAY ==
--- NOTE | 2023-07-05 10:56 | MHC.OFFVIS ---
Intake Intake Visit Reasons: Remote HF Monitoring- Medtronic Allergies levofloxacin [From LEVAQUIN] Allergy (Intermediate, Verified 04/21/23 13:15) RASH Darvocet-N 50 Allergy (Mild, Uncoded 04/21/23 13:15) hives Sulfacet-R Allergy (Unknown, Uncoded 04/21/23 13:15) gi PFSH Medical History Biventricular ICD (implantable cardioverter-defibrillator) in place (~04/2020) CAD (coronary artery disease) Cardiomyopathy Chronic systolic heart failure History of uterine cancer HTN (hypertension) LBBB (left bundle branch block) Mild intermittent asthma Osteoarthritis of left hip Paroxysmal atrial fibrillation Surgical History History of permanent cardiac pacemaker placement History of total left hip replacement Hx of hernia repair Hx of hysterectomy Family History Father Cancer Mother No problems noted. 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 Heart failure parameters are stable [id number] Cardiac Device Interrogation, cardio physiologic monitor Procedure code (CPT) selection complete Coding Level of Care Code Procedure Only Diagnoses CPT Codes Cardiac Device Check - Cardiac Device 15: [id number] Cardiac Device Interrogation, cardio physiologic monitor ([id number])
== END ==
PROVIDERS: PCP Family Medicine; Visit Provider Internal Medicine Cardiovascular Disease
DX: I50.22 Chronic systolic (congestive) heart failure (principal); Z95.810 Presence of automatic (implantable) cardiac defibrillator
CPT/HCPCS: 93297

== ENCOUNTER → 2023-07-04 23:59 | Outpatient (BNV) | payer MEDICARE, MEDICAID, SELFPAY ==
--- NOTE | 2023-07-05 10:55 | A.OFFVIS_ITS ---
Intake Intake Visit Reasons: Remote ICD Check- Medtronic Allergies levofloxacin [From LEVAQUIN] Allergy (Intermediate, Verified 04/21/23 13:15) RASH Darvocet-N 50 Allergy (Mild, Uncoded 04/21/23 13:15) hives Sulfacet-R Allergy (Unknown, Uncoded 04/21/23 13:15) gi PFSH Medical History Biventricular ICD (implantable cardioverter-defibrillator) in place (~04/2020) CAD (coronary artery disease) Cardiomyopathy Chronic systolic heart failure History of uterine cancer HTN (hypertension) LBBB (left bundle branch block) Mild intermittent asthma Osteoarthritis of left hip Paroxysmal atrial fibrillation Surgical History History of permanent cardiac pacemaker placement History of total left hip replacement Hx of hernia repair Hx of hysterectomy Family History Father Cancer Mother No problems noted. Social History Household Members: Family Household Members Other:: granddaughter Housing: House Do you presently have visiting nurse or other home services: No Alcohol intake: never Patient Tobacco Use Status: Never used Tobacco service: No Current occupational status: retired Current occupation: rt handed Office Procedures Cardiac Device Check Cardiac Device Check Details: Remote ICD report generated 07/04/2023. ICD function overall is okay but suboptimal Bi V pacing noted at about 92.5%. Will check during office visit to reprogrammed the device. [id number] Cardiac Interrogation, implant defibrillator w/interim Procedure code (CPT) selection complete Coding Level of Care Code Procedure Only Diagnoses CPT Codes Cardiac Device Check - Cardiac Device 13: 54733-[id number] Cardiac Interrogation, implant defibrillator w/interim ([id number])
== END ==
PROVIDERS: PCP Family Medicine; Visit Provider Internal Medicine Cardiovascular Disease
DX: I48.0 Paroxysmal atrial fibrillation (principal); Z95.810 Presence of automatic (implantable) cardiac defibrillator
CPT/HCPCS: 93295

== ENCOUNTER 2023-07-07 12:38 | Outpatient (AMB) | payer MEDICARE, MEDICAID, SELFPAY ==
--- NOTE | 2023-07-07 12:44 | A.OFFVIS_ITS ---
Intake Vital Signs 07/07/23 12:47 Height 5 ft 5 in Weight 189 lb 9.561 oz BMI 31.5 BP 120/72 Blood Pressure Location Lt brachial Position Sitting Pulse 88 Intake Visit Reasons: 3 month follow up Intake Note: 3 month follow-up was ekg at [facility] [place]/ had GI bleeding c/o leg swelling even with increased med's Institutional Research Coordinator Required: No Allergies levofloxacin [From LEVAQUIN] Allergy (Intermediate, Verified 04/21/23 13:15) RASH Darvocet-N 50 Allergy (Mild, Uncoded 04/21/23 13:15) hives Sulfacet-R Allergy (Unknown, Uncoded 04/21/23 13:15) gi Medication List - Last Reconciled 07/07/23 by Marvin Swanson MD acetaminophen 650 mg (2 x 325 mg) PO QID PRN 30 days alendronate 70 mg PO QWEEK amiodarone 100 mg (1/2 x 200 mg) PO DAILY aspirin (Adult Aspirin Regimen) 81 mg PO DAILY atorvastatin 20 mg PO DAILY carvedilol 12.5 mg PO BID cholecalciferol (vitamin D3) (Vitamin D3) 25 mcg PO BID clonazepam 2 mg PO BEDTIME PRN clopidogrel (Plavix) 75 mg PO DAILY compression socks, medium As directed diphenoxylate-atropine 2.5-0.025 mg 1 tab PO QID PRN furosemide 40 mg PO DAILY levothyroxine 50 mcg PO QAM loratadine 10 mg PO DAILY multivitamin 1 tab PO DAILY omeprazole 20 mg PO DAILY tramadol 100 mg PO TID valsartan 80 mg (1/2 x 160 mg) PO DAILY HPI HPI Comments History of Present Illness Details Marlin comes for follow-up. She is very anxious. She recently ended up going to the hospital because she had some lower GI bleed, turned out to be diverticulosis. She is concerned of a bilateral lower extremity swelling. She denies any orthopnea, PND, abdominal distension, weight gain. She is by herself increased the Lasix to 40 mg daily without any effect on her leg edema. Her OptiVol setting on remote monitoring has been within normal limits. She comes for follow-up. She is being followed by [facility] for post Watchman device pericardial effusion and no interventions have been made. She denies any chest pain, lightheadedness, syncope, rapid irregular heartbeat. [facility] Medical History History of uterine cancer Mild intermittent asthma Osteoarthritis of left hip Cardiomyopathy CAD (coronary artery disease) HTN (hypertension) Biventricular ICD (implantable cardioverter-defibrillator) in place (~04/2020) Paroxysmal atrial fibrillation LBBB (left bundle branch block) Chronic systolic heart failure Surgical History Hx of hysterectomy History of total left hip replacement Hx of hernia repair History of permanent cardiac pacemaker placement Family History Father Cancer Mother No problems noted. Social History Household Members: Family Household Members Other:: granddaughter Housing: House Do you presently have visiting nurse or other home services: No Alcohol intake: never Patient Tobacco Use Status: Never used Tobacco service: No Current occupational status: retired Current occupation: rt handed Review of Systems Const Denies chills, Denies fatigue, Denies fever(s), Denies frequent falls, Denies weakness, Denies weight gain and Denies weight loss ENT Denies dizziness Card Denies chest pain, Denies leg edema, Denies lightheadedness, Denies palpitations, Denies dyspnea, Denies dyspnea on exertion, Denies orthopnea and Denies other (loss of consciousness) Resp Denies cough, Denies dyspnea and Denies dyspnea on exertion GI Denies hematochezia and Denies change in stool character Musc Denies abnormal gait, Denies muscle weakness, Denies numbness, Denies radiating pain into limb and Denies tingling Neuro Denies abnormal gait, Denies dizziness, Denies frequent falls, Denies numbness, Denies tingling and Denies weakness Endo Denies fatigue and Denies palpitations Physical Exam Vital Signs: Last Vital Signs Pulse 88 07/07/23 12:47 BP 120/72 07/07/23 12:47 BMI result Body Mass Index 31.5 Const General: cooperative, comfortable, no acute distress, alert and awake Nutritional Appearance: overweight and other (Frail appearing) Orientation/consciousness: patient oriented x3 Limitations: ambulation with walker Neck Neck: Yes trachea midline, Yes supple and Yes no JVD Resp Effort & Inspection: normal respiratory effort Auscultation: clear to auscultation bilaterally Cardio Jugular venous distension: no JVD Palpation: normal PMI Rate: regular rate Rhythm: regular rhythm Heart sounds: S1 normal heart sound present, S2 normal heart sound present, no click, no gallops, no murmurs and no rubs GI Inspection: Yes obesity Auscultation: normal bowel sounds Skin General skin exam: no rashes or lesions noted Neuro General: patient oriented x3 and no focal motor deficits Extrem General: No clubbing, No cyanosis and Yes edema Psych Appearance: grossly normal Affect: Anxious affect present Office Procedures Cardiac Device Check Cardiac Device Check Details: Biventricular Medtronic ICD in place. Battery life is excellent. Atrial ventricular sensing is adequate. Atrial pacing thresholds adequate and reprogrammed to enhance battery life. RV pacing thresholds adequate and reprogrammed to enhance battery life. LV pacing thresholds are stable and reprogrammed to provide adequate safety. Pacing and shock lead impedance is st able. Biventricular pacing about 94% time most likely due to frequent isolated PVCs noted during monitoring. One episode of atrial fibrillation noted lasted for about [id number] Cardiac Device Check, multi lead implantable defibrillator Procedure code (CPT) selection complete Assessment & Plan Assessment & Plan (1) Chronic systolic heart failure: Code(s): I50.22 - Chronic systolic (congestive) heart failure Plan: Patient with systolic heart failure related to nonischemic cardiomyopathy last echocardiogram showed moderate LV systolic dysfunction. Clinically euvolemic and well compensated. Her OptiVol settings are within normal limits. Her bilateral lower extremity edema appear to be secondary to dependent edema and not due to heart failure there is no evidence central venous congestion as well. Continue current neurohormonal modulation with carvedilol as well as valsartan therapy. Advised to reduce Lasix to 20 mg daily. Advised compression stockings along with leg elevation for her bilateral lower extremity edema. She shows understanding agree. Continue rhythm control approach for atrial fibrillation, see below. (2) Paroxysmal atrial fibrillation: Code(s): I48.0 - Paroxysmal atrial fibrillation Plan: Atrial fibrillation status was rhythm control approach with amiodarone on low- dose. Doing well. Annual check for amiodarone toxicity should be pursued. Has done extremely well with rhythm control approach will continue pursue the same. Status post Watchman device for recurrent GI bleeding. Currently on dual antiplatelet therapy, 3 months into it. Long-term aspirin therapy to be pursued. Avoidance of stimulants was discussed. Will continue monitor for atrial fibrillation why device telemetry. (3) Biventricular ICD (implantable cardioverter-defibrillator) in place: Onset Date: ~04/2020 Comment: Medtronic Code(s): Z95.810 - Presence of automatic (implantable) cardiac defibrillator Plan: Biventricular ICD in place for nonischemic cardiomyopathy and left bundle-branch block. LV systolic function has remained moderate. Continue to monitor remotely for heart failure as well as for device parameters. Suboptimal biventricular pacing due to frequent isolated PVCs. Will follow up in the clinic in 6 months time, sooner p.r.n.. Thank you for allowing me to partake in her care Medications: Changed From furosemide takes 2 when having swelling 40 mg PO DAILY Edema To furosemide takes 2 when having swelling 20 mg PO DAILY Edema Coding Level of Care Code Est Pt Level 4 (03939) Diagnoses Chronic systolic heart failure I50.22 Paroxysmal atrial fibrillation I48.0 Biventricular ICD (implantable cardioverter-defibrillator) in place Z95.810 CPT Codes Cardiac Device Check - Cardiac Device 6: [id number] Cardiac Device Check, multi lead implantable defibrillator ([id number])
[2023-07-07 12:47] VITALS: BP 120/72; PULSE 88; BMI 31.5
== END 2023-07-07 13:40 | disposition home or self-care (01) ==
PROVIDERS: PCP Family Medicine; Referring Provider Family Medicine; Visit Provider Internal Medicine Cardiovascular Disease
DX: I50.22 Chronic systolic (congestive) heart failure (principal); I48.0 Paroxysmal atrial fibrillation; Z95.810 Presence of automatic (implantable) cardiac defibrillator
CPT/HCPCS: 93284; 99214

== ENCOUNTER → 2023-07-07 12:38 | Outpatient (BNVA) | payer MEDICARE, MEDICAID, SELFPAY | PROVIDERS: PCP Family Medicine; Referring Provider Family Medicine; Visit Provider Internal Medicine Cardiovascular Disease | DX: I11.0 Hypertensive heart disease with heart failure (principal); I43 Cardiomyopathy in diseases classified elsewhere; I50.22 Chronic systolic (congestive) heart failure; I48.0 Paroxysmal atrial fibrillation; Z95.810 Presence of automatic (implantable) cardiac defibrillator | CPT/HCPCS: 99212 ==

== ENCOUNTER → 2023-08-04 23:59 | Outpatient (BNV) | payer MEDICARE, SELFPAY ==
--- NOTE | 2023-08-22 09:03 | MHC.OFFVIS ---
Intake Intake Visit Reasons: Remote HF Monitoring- Medtronic Allergies levofloxacin [From LEVAQUIN] Allergy (Intermediate, Verified 04/21/23 13:15) RASH Darvocet-N 50 Allergy (Mild, Uncoded 04/21/23 13:15) hives Sulfacet-R Allergy (Unknown, Uncoded 04/21/23 13:15) gi PFSH Medical History History of uterine cancer Mild intermittent asthma Osteoarthritis of left hip Cardiomyopathy CAD (coronary artery disease) HTN (hypertension) Biventricular ICD (implantable cardioverter-defibrillator) in place (~04/2020) Paroxysmal atrial fibrillation LBBB (left bundle branch block) Chronic systolic heart failure Surgical History Hx of hysterectomy History of total left hip replacement Hx of hernia repair History of permanent cardiac pacemaker placement Family History Father Cancer Mother No problems noted. Social History Household Members: Family Household Members Other:: granddaughter Housing: House Do you presently have visiting nurse or other home services: No Alcohol intake: never Patient Tobacco Use Status: Never used Tobacco service: No Current occupational status: retired Current occupation: rt handed Office Procedures Cardiac Device Check Cardiac Device Check Details: Remote heart failure report generated 08/04/2023. Heart failure parameters are stable [id number] Cardiac Device Interrogation, cardio physiologic monitor Procedure code (CPT) selection complete Coding Level of Care Code Procedure Only CPT Codes Cardiac Device Check - Cardiac Device 15: [id number] Cardiac Device Interrogation, cardio physiologic monitor ([id number])
== END ==
PROVIDERS: PCP Family Medicine; Visit Provider Internal Medicine Cardiovascular Disease
DX: I50.22 Chronic systolic (congestive) heart failure (principal); Z95.810 Presence of automatic (implantable) cardiac defibrillator
CPT/HCPCS: 93297

== ENCOUNTER → 2023-09-04 23:59 | Outpatient (BNV) | payer MEDICARE, MEDICAID, SELFPAY ==
--- NOTE | 2023-09-05 15:13 | MHC.OFFVIS ---
Intake Intake Visit Reasons: Remote HF Monitoring- Medtronic Allergies levofloxacin [From LEVAQUIN] Allergy (Intermediate, Verified 04/21/23 13:15) RASH Darvocet-N 50 Allergy (Mild, Uncoded 04/21/23 13:15) hives Sulfacet-R Allergy (Unknown, Uncoded 04/21/23 13:15) gi PFSH Medical History History of uterine cancer Mild intermittent asthma Osteoarthritis of left hip Cardiomyopathy CAD (coronary artery disease) HTN (hypertension) Biventricular ICD (implantable cardioverter-defibrillator) in place (~04/2020) Paroxysmal atrial fibrillation LBBB (left bundle branch block) Chronic systolic heart failure Surgical History Hx of hysterectomy History of total left hip replacement Hx of hernia repair History of permanent cardiac pacemaker placement Family History Father Cancer Mother No problems noted. Social History Household Members: Family Household Members Other:: granddaughter Housing: House Do you presently have visiting nurse or other home services: No Alcohol intake: never Patient Tobacco Use Status: Never used Tobacco service: No Current occupational status: retired Current occupation: rt handed Office Procedures Cardiac Device Check Cardiac Device Check Details: Remote heart failure report generated 09/04/2023. Heart failure parameters are stable [id number] Cardiac Device Interrogation, cardio physiologic monitor Procedure code (CPT) selection complete Coding Level of Care Code Procedure Only CPT Codes Cardiac Device Check - Cardiac Device 15: [id number] Cardiac Device Interrogation, cardio physiologic monitor ([id number])
== END ==
PROVIDERS: PCP Family Medicine; Visit Provider Internal Medicine Cardiovascular Disease
DX: I50.22 Chronic systolic (congestive) heart failure (principal); Z95.810 Presence of automatic (implantable) cardiac defibrillator
CPT/HCPCS: 93297

== ENCOUNTER → 2023-10-05 23:59 | Outpatient (BNV) | payer MEDICARE, SELFPAY ==
--- NOTE | 2023-10-05 14:45 | MHC.OFFVIS ---
Intake Intake Visit Reasons: Remote HF Monitoring- Medtronic Allergies levofloxacin [From LEVAQUIN] Allergy (Intermediate, Verified 04/21/23 13:15) RASH Darvocet-N 50 Allergy (Mild, Uncoded 04/21/23 13:15) hives Sulfacet-R Allergy (Unknown, Uncoded 04/21/23 13:15) gi PFSH Medical History History of uterine cancer Mild intermittent asthma Osteoarthritis of left hip Cardiomyopathy CAD (coronary artery disease) HTN (hypertension) Biventricular ICD (implantable cardioverter-defibrillator) in place (~04/2020) Paroxysmal atrial fibrillation LBBB (left bundle branch block) Chronic systolic heart failure Surgical History Hx of hysterectomy History of total left hip replacement Hx of hernia repair History of permanent cardiac pacemaker placement Family History Father Cancer Mother No problems noted. 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 Heart failure parameters are stable [id number] Cardiac Device Interrogation, cardio physiologic monitor Procedure code (CPT) selection complete Assessment & Plan Assessment & Plan (1) Chronic systolic heart failure: Code(s): I50.22 - Chronic systolic (congestive) heart failure Plan See the procedure note Coding Level of Care Code Procedure Only Diagnoses Chronic systolic heart failure I50.22 CPT Codes Cardiac Device Check - Cardiac Device 15: [id number] Cardiac Device Interrogation, cardio physiologic monitor ([id number])
== END ==
PROVIDERS: PCP Family Medicine; Visit Provider Internal Medicine Cardiovascular Disease
DX: I50.22 Chronic systolic (congestive) heart failure (principal); Z95.810 Presence of automatic (implantable) cardiac defibrillator
CPT/HCPCS: 93297

== ENCOUNTER → 2023-10-05 23:59 | Outpatient (BNV) | payer MEDICARE, MEDICAID, SELFPAY ==
--- NOTE | 2023-10-05 14:44 | MHC.OFFVIS ---
Intake Intake Visit Reasons: Remote ICD Check- Medtronic Allergies levofloxacin [From LEVAQUIN] Allergy (Intermediate, Verified 04/21/23 13:15) RASH Darvocet-N 50 Allergy (Mild, Uncoded 04/21/23 13:15) hives Sulfacet-R Allergy (Unknown, Uncoded 04/21/23 13:15) gi PFSH Medical History History of uterine cancer Mild intermittent asthma Osteoarthritis of left hip Cardiomyopathy CAD (coronary artery disease) HTN (hypertension) Biventricular ICD (implantable cardioverter-defibrillator) in place (~04/2020) Paroxysmal atrial fibrillation LBBB (left bundle branch block) Chronic systolic heart failure Surgical History Hx of hysterectomy History of total left hip replacement Hx of hernia repair History of permanent cardiac pacemaker placement Family History Father Cancer Mother No problems noted. 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 ICD function is adequate. Bi V pacing 96.7% of the time [id number] Cardiac Interrogation, implant defibrillator w/interim Procedure code (CPT) selection complete Assessment & Plan Assessment & Plan (1) Biventricular ICD (implantable cardioverter-defibrillator) in place: Onset Date: ~04/2020 Comment: Medtronic Code(s): Z95.810 - Presence of automatic (implantable) cardiac defibrillator Plan: No change in plan Coding Level of Care Code Procedure Only Diagnoses Biventricular ICD (implantable cardioverter-defibrillator) in place Z95.810 CPT Codes Cardiac Device Check - Cardiac Device 13: [id number] Cardiac Interrogation, implant defibrillator w/interim ([id number])
== END ==
PROVIDERS: PCP Family Medicine; Visit Provider Internal Medicine Cardiovascular Disease
DX: I50.22 Chronic systolic (congestive) heart failure (principal); Z95.810 Presence of automatic (implantable) cardiac defibrillator
CPT/HCPCS: 93295

== ENCOUNTER → 2023-11-05 23:59 | Outpatient (BNV) | payer MEDICARE, MEDICAID, SELFPAY ==
--- NOTE | 2023-11-08 16:27 | A.OFFVIS_ITS ---
Intake Intake Visit Reasons: Remote HF Monitoring- Medtronic Allergies levofloxacin [From LEVAQUIN] Allergy (Intermediate, Verified 04/21/23 13:15) RASH Darvocet-N 50 Allergy (Mild, Uncoded 04/21/23 13:15) hives Sulfacet-R Allergy (Unknown, Uncoded 04/21/23 13:15) gi PFSH Medical History History of uterine cancer Mild intermittent asthma Osteoarthritis of left hip Cardiomyopathy CAD (coronary artery disease) HTN (hypertension) Biventricular ICD (implantable cardioverter-defibrillator) in place (~04/2020) Paroxysmal atrial fibrillation LBBB (left bundle branch block) Chronic systolic heart failure Surgical History Hx of hysterectomy History of total left hip replacement Hx of hernia repair History of permanent cardiac pacemaker placement Family History Father Cancer Mother No problems noted. 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 Heart failure parameters are stable [id number] Cardiac Device Interrogation, cardio physiologic monitor Procedure code (CPT) selection complete Assessment & Plan Assessment & Plan (1) Biventricular ICD (implantable cardioverter-defibrillator) in place: Onset Date: ~04/2020 Comment: Medtronic Code(s): Z95.810 - Presence of automatic (implantable) cardiac defibrillator Plan: See above Coding Level of Care Code Procedure Only Diagnoses Biventricular ICD (implantable cardioverter-defibrillator) in place Z95.810 CPT Codes Cardiac Device Check - Cardiac Device 15: [id number] Cardiac Device Inter rogation, cardio physiologic monitor ([id number])
== END ==
PROVIDERS: PCP Family Medicine; Visit Provider Internal Medicine Cardiovascular Disease
DX: I50.22 Chronic systolic (congestive) heart failure (principal); Z95.810 Presence of automatic (implantable) cardiac defibrillator
CPT/HCPCS: 93297

== ENCOUNTER → 2023-12-05 23:59 | Outpatient (BNV) | payer MEDICARE, SELFPAY ==
--- NOTE | 2023-12-12 14:14 | A.OFFVIS_ITS ---
Intake Intake Visit Reasons: Remote HF Monitoring- Medtronic Allergies levofloxacin [From LEVAQUIN] Allergy (Intermediate, Verified 04/21/23 13:15) RASH Darvocet-N 50 Allergy (Mild, Uncoded 04/21/23 13:15) hives Sulfacet-R Allergy (Unknown, Uncoded 04/21/23 13:15) gi PFSH Medical History History of uterine cancer Mild intermittent asthma Osteoarthritis of left hip Cardiomyopathy CAD (coronary artery disease) HTN (hypertension) Biventricular ICD (implantable cardioverter-defibrillator) in place (~04/2020) Paroxysmal atrial fibrillation LBBB (left bundle branch block) Chronic systolic heart failure Surgical History Hx of hysterectomy History of total left hip replacement Hx of hernia repair History of permanent cardiac pacemaker placement Family History Father Cancer Mother No problems noted. 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 Heart failure parameters are stable [id number] Cardiac Device Interrogation, cardio physiologic monitor Procedure code (CPT) selection complete Assessment & Plan Assessment & Plan (1) Biventricular ICD (implantable cardioverter-defibrillator) in place: Onset Date: ~04/2020 Comment: Medtronic Code(s): Z95.810 - Presence of automatic (implantable) cardiac defibrillator Plan: See above Coding Level of Care Code Procedure Only Diagnoses Biventricular ICD (implantable cardioverter-defibrillator) in place Z95.810 CPT Codes Cardiac Device Check - Cardiac Device 15: [id number] Cardiac Device Inter rogation, cardio physiologic monitor ([id number])
== END ==
PROVIDERS: PCP Family Medicine; Visit Provider Internal Medicine Cardiovascular Disease
DX: I50.22 Chronic systolic (congestive) heart failure (principal); Z95.810 Presence of automatic (implantable) cardiac defibrillator
CPT/HCPCS: 93297

== ENCOUNTER → 2023-12-05 23:59 | Outpatient (BNV) | payer MEDICARE, MEDICAID, SELFPAY ==
--- NOTE | 2023-12-12 14:13 | MHC.OFFVIS ---
Intake Intake Visit Reasons: Remote ICD Check- Medtronic Allergies levofloxacin [From LEVAQUIN] Allergy (Intermediate, Verified 04/21/23 13:15) RASH Darvocet-N 50 Allergy (Mild, Uncoded 04/21/23 13:15) hives Sulfacet-R Allergy (Unknown, Uncoded 04/21/23 13:15) gi PFSH Medical History History of uterine cancer Mild intermittent asthma Osteoarthritis of left hip Cardiomyopathy CAD (coronary artery disease) HTN (hypertension) Biventricular ICD (implantable cardioverter-defibrillator) in place (~04/2020) Paroxysmal atrial fibrillation LBBB (left bundle branch block) Chronic systolic heart failure Surgical History Hx of hysterectomy History of total left hip replacement Hx of hernia repair History of permanent cardiac pacemaker placement Family History Father Cancer Mother No problems noted. 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 ICD function is adequate [id number] Cardiac Interrogation, implant defibrillator w/interim Procedure code (CPT) selection complete Assessment & Plan Assessment & Plan (1) Biventricular ICD (implantable cardioverter-defibrillator) in place: Onset Date: ~04/2020 Comment: Medtronic Code(s): Z95.810 - Presence of automatic (implantable) cardiac defibrillator Plan: See above Coding Level of Care Code Procedure Only Diagnoses Biventricular ICD (implantable cardioverter-defibrillator) in place Z95.810 CPT Codes Cardiac Device Check - Cardiac Device 13: [id number] Cardiac Interrogation, implant defibrillator w/interim ([id number])
== END ==
PROVIDERS: PCP Family Medicine; Visit Provider Internal Medicine Cardiovascular Disease
DX: I48.0 Paroxysmal atrial fibrillation (principal); Z95.810 Presence of automatic (implantable) cardiac defibrillator
CPT/HCPCS: 93295

== ENCOUNTER 2024-01-03 13:48 | Outpatient (AMB) | payer MEDICARE, SELFPAY ==
[2024-01-03 13:49] VITALS: BP 124/76; PULSE 60; BMI 28.2
--- NOTE | 2024-01-03 13:49 | A.OFFVIS_ITS ---
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 Development Specialist Required: No Allergies levofloxacin [From LEVAQUIN] Allergy (Intermediate, Verified 04/21/23 13:15) RASH Darvocet-N 50 Allergy (Mild, Uncoded 04/21/23 13:15) hives Sulfacet-R Allergy (Unknown, Uncoded 04/21/23 13:15) gi Medication List - Last Reconciled 01/03/24 by Marvin Swanson MD acetaminophen 650 mg (2 x 325 mg) PO QID PRN 30 days alendronate 70 mg PO QWEEK amiodarone 100 mg (1/2 x 200 mg) PO DAILY aspirin (Adult Aspirin Regimen) 81 mg PO DAILY atorvastatin 20 mg PO DAILY carvedilol 12.5 mg PO BID cholecalciferol (vitamin D3) (Vitamin D3) 25 mcg PO BID clonazepam 2 mg PO BEDTIME PRN clopidogrel (Plavix) 75 mg PO DAILY compression socks, medium As directed diphenoxylate-atropine 2.5-0.025 mg 1 tab PO QID PRN furosemide 20 mg PO DAILY levothyroxine 50 mcg PO QAM loratadine 10 mg PO DAILY multivitamin 1 tab PO DAILY omeprazole 20 mg PO DAILY tramadol 100 mg PO TID valsartan 80 mg (1/2 x 160 mg) PO DAILY 90 days HPI HPI Comments History of Present Illness Details Marlin comes for follow-up. She is grieving the of her oldest son who suddenly. She is otherwise doing okay from cardiac perspective. No worsening symptoms of shortness of breath, orthopnea, PND. No prolonged palpitations, lightheadedness, syncope, ICD discharge. Takes all her medications. Her weight has been stable. She was admitted to [facility] with sepsis of unclear etiology. Do not have the records. [facility] Medical History History of uterine cancer Mild intermittent asthma Osteoarthritis of left hip Cardiomyopathy CAD (coronary artery disease) HTN (hypertension) Biventricular ICD (implantable cardioverter-defibrillator) in place (~04/2020) Paroxysmal atrial fibrillation LBBB (left bundle branch block) Chronic systolic heart failure Surgical History Hx of hysterectomy History of total left hip replacement Hx of hernia repair History of permanent cardiac pacemaker placement Family History Father Cancer Mother No problems noted. Social History Household Members: Family Household Members Other:: granddaughter Housing: House Do you presently have visiting nurse or other home services: No Alcohol intake: never Patient Tobacco Use Status: Never used Tobacco service: No Current occupational status: retired Current occupation: rt handed Review of Systems Const Denies chills, Denies fatigue, Denies fever(s), Denies frequent falls, Denies weakness, Denies weight gain and Denies weight loss ENT Denies dizziness Card Denies chest pain, Denies leg edema, Denies lightheadedness, Denies palpitations, Denies dyspnea, Denies dyspnea on exertion, Denies orthopnea and Denies other (loss of consciousness) Resp Denies cough, Denies dyspnea and Denies dyspnea on exertion GI Denies hematochezia and Denies change in stool character Musc Denies abnormal gait, Denies muscle weakness, Denies numbness, Denies radiating pain into limb and Denies tingling Neuro Denies abnormal gait, Denies dizziness, Denies frequent falls, Denies numbness, Denies tingling and Denies weakness Endo Denies fatigue and Denies palpitations Physical Exam Vital Signs: Last Vital Signs Pulse 60 01/03/24 13:49 BP 124/76 01/03/24 13:49 BMI result Body Mass Index 28.2 Const General: cooperative, comfortable, no acute distress, alert and awake Nutritional Appearance: overweight and other (Frail appearing) Orientation/consciousness: patient oriented x3 Limitations: ambulation with walker Neck Neck: Yes trachea midline, Yes supple and Yes no JVD Resp Effort & Inspection: normal respiratory effort Auscultation: clear to auscultation bilaterally Cardio Jugular venous distension: no JVD Palpation: normal PMI Rate: regular rate Rhythm: regular rhythm Heart sounds: S1 normal heart sound present, S2 normal heart sound present, no click, no gallops, no murmurs and no rubs GI Inspection: Yes obesity Auscultation: normal bowel sounds Skin General skin exam: no rashes or lesions noted Neuro General: patient oriented x3 and no focal motor deficits Extrem General: No clubbing, No cyanosis and Yes edema Psych Appearance: grossly normal Affect: Anxious affect present Office Procedures Cardiac Device Check Cardiac Device Check Details: Biventricular Medtronic ICD in place. Programmed in DDDR at 60 beats per minute. Ectopy with the level has reduced significantly in the last few months. Atrial ventricular sensing is adequate. Atrial and biventricular pacing thresholds excellent and reprogrammed to enhance battery life. Pacing and shock lead impedance is stable. No arrhythmias detected. Bi V pacing 97% of the time. Battery life is at about 6 years [id number] Cardiac Device Check, multi lead implantable defibrillator Procedure code (CPT) selection complete EKG Details: EKG shows AV dual paced rhythm with LV pacing [id number], Complete Assessment & Plan Assessment & Plan (1) Chronic systolic heart failure: Code(s): I50.22 - Chronic systolic (congestive) heart failure Plan: Heart failure with reduced ejection fraction secondary to nonischemic cardiomyopathy clinically doing well with NYHA class 1 symptoms. She has lot of frailty and reduced activity since hospitalization for sepsis. Cause of her sepsis unknown at to me this time. Continue current diuretic regimen. Daily weight monitoring avoidance of salt loading was discussed. Continue current neurohormonal modulation with valsartan as well as carvedilol therapy. Additional diuretics as need be. This was discussed with her. She understands management well. She has schedule echocardiogram near future. Will also check for basic metabolic profile and BNP level. (2) Paroxysmal atrial fibrillation: Code(s): I48.0 - Paroxysmal atrial fibrillation Plan: Paroxysmal atrial fibrillation has done well with rhythm control approach with no recurrent atrial fibrillation on low-dose amiodarone therapy. Will check for chest x-ray as well as liver and thyroid profile in near future. Continue amiodarone therapy. Status post Watchman device for chronic anemia and bleeding diet he sees. Currently on aspirin therapy for the same. (3) Biventricular ICD (implantable cardioverter-defibrillator) in place: Onset Date: ~04/2020 Comment: Medtronic Code(s): Z95.810 - Presence of automatic (implantable) cardiac defibrillator Plan: Biventricular ICD in place, doing well. Will follow remotely for heart failure as well as device check. Follow up in 6 months time. Follow up in the clinic in 6 months time, sooner p.r.n.. Thank you for allowing me to partake in her care Coding Level of Care Code Est Pt Level 4 (04340) Diagnoses Chronic systolic heart failure I50.22 Paroxysmal atrial fibrillation I48.0 Biventricular ICD (implantable cardioverter-defibrillator) in place Z95.810 CPT Codes Cardiac Device Check - Cardiac Device 6: [id number] Cardiac Device Check, multi lead implantable defibrillator ([id number]) EKG - CPT: 19608-Lwwhbzavohystewct, Complete ([id number])
== END 2024-01-03 14:29 | disposition home or self-care (01) ==
PROVIDERS: PCP Family Medicine; Visit Provider Internal Medicine Cardiovascular Disease
DX: I50.22 Chronic systolic (congestive) heart failure (principal); I48.0 Paroxysmal atrial fibrillation; Z95.810 Presence of automatic (implantable) cardiac defibrillator
CPT/HCPCS: 93284; 99214

== ENCOUNTER → 2024-01-03 13:48 | Outpatient (BNVA) | payer MEDICARE, MEDICAID, SELFPAY | PROVIDERS: PCP Family Medicine; Visit Provider Internal Medicine Cardiovascular Disease | DX: Z45.02 Encounter for adjustment and management of automatic implantable cardiac defibrillator (principal); I50.22 Chronic systolic (congestive) heart failure; I48.0 Paroxysmal atrial fibrillation | CPT/HCPCS: 93005; 99212 ==

== ENCOUNTER → 2024-01-04 23:59 | Outpatient (BNV) | payer MEDICARE, SELFPAY ==
--- NOTE | 2024-01-04 15:43 | MHC.OFFVIS ---
Intake Intake Visit Reasons: Remote ICD Check- Medtronic Allergies levofloxacin [From LEVAQUIN] Allergy (Intermediate, Verified 04/21/23 13:15) RASH Darvocet-N 50 Allergy (Mild, Uncoded 04/21/23 13:15) hives Sulfacet-R Allergy (Unknown, Uncoded 04/21/23 13:15) gi PFSH Medical History History of uterine cancer Mild intermittent asthma Osteoarthritis of left hip Cardiomyopathy CAD (coronary artery disease) HTN (hypertension) Biventricular ICD (implantable cardioverter-defibrillator) in place (~04/2020) Paroxysmal atrial fibrillation LBBB (left bundle branch block) Chronic systolic heart failure Surgical History Hx of hysterectomy History of total left hip replacement Hx of hernia repair History of permanent cardiac pacemaker placement Family History Father Cancer Mother No problems noted. 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 Bi V pacing 98% of time. ICD function is adequate [id number] Cardiac Interrogation, implant defibrillator w/interim Procedure code (CPT) selection complete Assessment & Plan Assessment & Plan (1) Biventricular ICD (implantable cardioverter-defibrillator) in place: Onset Date: ~04/2020 Comment: Medtronic Code(s): Z95.810 - Presence of automatic (implantable) cardiac defibrillator Plan: See above Coding Level of Care Code Procedure Only Diagnoses Biventricular ICD (implantable cardioverter-defibrillator) in place Z95.810 CPT Codes Cardiac Device Check - Cardiac Device 13: [id number] Cardiac Interrogation, implant defibrillator w/interim ([id number])
== END ==
PROVIDERS: PCP Family Medicine; Visit Provider Internal Medicine Cardiovascular Disease
DX: I48.0 Paroxysmal atrial fibrillation (principal); Z95.810 Presence of automatic (implantable) cardiac defibrillator
CPT/HCPCS: 93295

== ENCOUNTER → 2024-01-04 23:59 | Outpatient (BNV) | payer MEDICARE, MEDICAID, SELFPAY ==
--- NOTE | 2024-01-04 15:43 | A.OFFVIS_ITS ---
Intake Intake Visit Reasons: Remote HF Monitoring- Medtronic Allergies levofloxacin [From LEVAQUIN] Allergy (Intermediate, Verified 04/21/23 13:15) RASH Darvocet-N 50 Allergy (Mild, Uncoded 04/21/23 13:15) hives Sulfacet-R Allergy (Unknown, Uncoded 04/21/23 13:15) gi PFSH Medical History History of uterine cancer Mild intermittent asthma Osteoarthritis of left hip Cardiomyopathy CAD (coronary artery disease) HTN (hypertension) Biventricular ICD (implantable cardioverter-defibrillator) in place (~04/2020) Paroxysmal atrial fibrillation LBBB (left bundle branch block) Chronic systolic heart failure Surgical History Hx of hysterectomy History of total left hip replacement Hx of hernia repair History of permanent cardiac pacemaker placement Family History Father Cancer Mother No problems noted. 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 Heart failure parameters are stable [id number] Cardiac Device Interrogation, cardio physiologic monitor Procedure code (CPT) selection complete Assessment & Plan Assessment & Plan (1) Biventricular ICD (implantable cardioverter-defibrillator) in place: Onset Date: ~04/2020 Comment: Medtronic Code(s): Z95.810 - Presence of automatic (implantable) cardiac defibrillator Plan: See above Coding Level of Care Code Procedure Only Diagnoses Biventricular ICD (implantable cardioverter-defibrillator) in place Z95.810 CPT Codes Cardiac Device Check - Cardiac Device 15: [id number] Cardiac Device Inter rogation, cardio physiologic monitor ([id number])
== END ==
PROVIDERS: PCP Family Medicine; Visit Provider Internal Medicine Cardiovascular Disease
DX: I50.22 Chronic systolic (congestive) heart failure (principal); Z95.810 Presence of automatic (implantable) cardiac defibrillator
CPT/HCPCS: 93297

== ENCOUNTER 2024-01-10 00:22 | Inpatient (IN) | payer MEDICARE, SELFPAY ==
[2024-01-10] VITALS (13 sets, daily range): BP systolic 81–151; BP diastolic 40–63; PULSE 60–67; RESP 12–112; TEMP 36.2–37; O2SAT 93–100; BMI 31.4; BMI 33.8
--- NOTE | ~2024-01-10 | XR_ITS ---
EXAMINATION: XR ABDOMEN KUB CLINICAL INDICATION: Contrast evaluation COMPARISON: None available. TECHNIQUE: AP view of the abdomen. FINDINGS: There is contrast observed within the bladder as well as dilute contrast seen in distal small bowel loops. No proximal obstruction or free air. Surgical clips overlie the symphysis pubis. Portions of the left hip prosthesis are noted. XR/XR KUB IMPRESSION: Some contrast is seen within the right lower quadrant bowel loops possibly small bowel, as well as within the bladder.
--- NOTE | ~2024-01-10 | XR_ITS ---
EXAMINATION: XR CHEST CLINICAL INFORMATION: Evaluation for NG tube placement COMPARISON: 01/10/2024 TECHNIQUE: Frontal view of the chest was obtained. FINDINGS: NG tube has been placed with its distal tip past the GE junction. Lungs clear. Heart and pulmonary vessels are normal. There is a left-sided pacer with distal tips directed towards right atrium and right ventricular apex. There are end-stage changes in the shoulder joints. XR/XR chest 1V IMPRESSION: NG tube placed as described.
--- NOTE | ~2024-01-10 | FL_ITS ---
EXAMINATION: FL SMALL BOWEL SERIES CLINICAL INFORMATION: SBO secondary to incarcerated ventral hernia. COMPARISON: None available. Correlation made with KUB radiograph same day at 7:59 AM, and CT abdomen and pelvis same day 01/10/2024. TECHNIQUE: Following a crab steamer image of the abdomen, contrast was administered orally, and interval abdominal radiographs were performed to assess for contrast progression through the small bowel. Images taken at immediate, 1 hour 20 minute and 3 hour 20 minute intervals. 80% Gastrografin utilized. FINDINGS: Health Sciences Manager image of the abdomen demonstrates residual contrast from prior CT exam within the urinary bladder, and several loops of small bowel in the right lower quadrant. There are dilated loops of bowel in the mid to upper abdomen consistent with mechanical small bowel obstruction. Healing fractures of the sacral alae, and bilateral superior and inferior pubic rami are incidentally noted. There is a left total hip arthroplasty without definite complication. There are compression fractures of L4 and L5, likely subacute. Heart appears enlarged, with a left atrial appendage occlusion device in place. Pacer/defibrillator leads are noted in the right ventricle and right atrium. Pacer lead also noted in the coronary sinus. Several leads overlie the upper abdomen. Right upper quadrant surgical clips are present from cholecystectomy. Suspect a small left-sided pleural effusion. Moderate fecal residue is seen within the colon. No definite pneumatosis or free air seen. 80% Gastrografin was given via NG tube. NG tube lies with tip in the gastric body. Contrast opacifies the stomach, and proximal jejunum as well as a proximal loop of ileum in the superior mid pelvis. It does appear that contrast from the prior CT examination has progressed into the right hemicolon and cecum. Currently, no pathologic small bowel dilatation is evident in the opacified or unopacified loops. On the one hour 20 minute image, there has been clear progression of Gastrografin contrast into the colon, including the descending, transverse, and descending colon. Contrast is seen to opacify the terminal ileum which is nondilated. Mild dilation of proximal loops of small bowel is noted, however improved from the CT examination. Opacified small bowel loops are present within the right aspect of the ventral rectus hernia, seen overlying the right femoral head and neck. On the 3 hour 20 minute film, no interval change in the findings aside from progression of contrast into the sigmoid colon. No definite rectal contrast seen. The stomach has emptied of contrast. FL/FL small bowel follow through IMPRESSION: Small bowel series examination demonstrating progression of contrast into the sigmoid colon, and relative decompression of proximal small bowel loops. NG tube in place in good position. Healing subacute fractures of the bilateral pubic rami, bilateral sacral alae, L4 and L5 vertebral bodies. Suspect a small left pleural effusion. The heart is mildly enlarged. Left atrial appendage occlusion device in place. See the body of the report for details.
--- NOTE | ~2024-01-10 | CT_ITS ---
EXAMINATION: CT ABDOMEN AND PELVIS WITH CONTRAST CLINICAL INFORMATION: Abdominal pain. COMPARISON: 08/15/2021 TECHNIQUE: Multidetector volumetric images were obtained from the superior aspect of the liver through the pubic symphysis following administration 85 mL of Omnipaque 350 intravenous contrast. Sagittal and coronal reformatted images were obtained on the technologist's workstation. Oral contrast: No This CT examination was performed using dose optimization techniques as appropriate, variously including the following: *Automated exposure control *Adjustment of mA and/or kV according to patient size (this includes techniques or standardized protocols for targeted exams where dose is matched to indication/reason for exam; i.e. extremities or head) *Use of iterative reconstruction technique DLP: 820 mGy-cm FINDINGS: LUNG BASES: There is scarring at the left lung base. There is a dependent pericardial effusion. LIVER, GALLBLADDER, AND BILIARY TREE: The liver is normal in size, shape, and attenuation. . There is mild intrahepatic biliary duct dilatation. There has been a prior cholecystectomy. PANCREAS: Unremarkable. SPLEEN: Unremarkable. ADRENAL GLANDS: Unremarkable. KIDNEYS AND URETERS: The kidneys are normal in size, shape, and attenuation. No hydronephrosis, hydroureter, or calculi seen. No perinephric stranding. BLADDER: Unremarkable. GASTROINTESTINAL TRACT: There are diverticula of the sigmoid colon without diverticulitis. There is a large defect right lower abdominal wall. There is prominent distal bowel entering the medial portion of the defect with a dilated segment of small bowel within the defect measuring up to 3.5 cm with normal caliber distal small bowel exiting the hernia. Other bowel loops are seen within the hernia which are nondilated. ABDOMINAL WALL: A large right lower abdominal wall defect/hernia is noted. LYMPH NODES: Normal. VASCULAR: Unremarkable. PELVIC VISCERA: Unremarkable. OSSEOUS STRUCTURES: There is diffuse thoracolumbar disc degenerative change. The bony structures are osteopenic. There is an L5 compression fracture. There are apparent healing sacral and right pubic rami fractures. CT/CT abdomen pelvis w IV con IMPRESSION: Large right lower abdominal wall defect/hernia with dilated segment of distal small bowel entering the medial portion of the defect with normal caliber distal small bowel exiting the hernia. Suspect developing or early partial small bowel obstruction. Osteopenia. L5 compression fracture and apparent bilateral sacral fractures and healing right pubic rami fractures. Fleischner guidelines were followed.
[2024-01-10 01:05] LABS: Basophils Absolute Auto 0.1 X10*3/uL (0.0-0.2); Basophils Percent Auto 0.5 % (0-2); Eosinophils Absolute Auto 0.3 X10*3/uL (0.0-0.4); Eosinophils Percent Auto 2.4 % (0-4); Hematocrit 38.6 % (37.0-47.0); Hemoglobin 12.6 g/dl (12.0-16.0); Imm Gran Abs Auto 0.04 X10*3/uL (0.00-0.03); Imm Gran Pct Auto 0.4 % (0.0-0.4); Lymphocytes Absolute Auto 0.7 X10*3/uL (1.2-4.9); Lymphocytes Percent Auto 7.1 % (20-40); MANUAL DIFF FLAG NO; Mean Corpuscular HGB Conc 32.6 g/dl (31.0-35.0); Mean Corpuscular Hemoglobin 31.7 pg (27.0-33.0); Mean Corpuscular Volume 97.2 fL (80.0-98.0); Mean Platelet Volume 9.6 fL (9.4-12.3); Monocytes Absolute Auto 0.6 X10*3/uL (0.1-1.2); Monocytes Percent Auto 5.6 % (2-11); Neutrophils Absolute Auto 8.8 x10*3/uL (2.0-8.3); Platelet Count 191 X10*3/uL (160-400); Red Blood Count 3.97 X10*6/uL (4.20-5.50); Red Cell Distribution Width 14.2 % (11.0-16.0); White Blood Count 10.5 X10*3/uL (4.8-10.8)
[2024-01-10] MEDS: 0.9 % Sodium Chloride 500 ML 999 ML IV (01:10)
[2024-01-10] MEDS: ondansetron HCL 4 MG/2 ML VIAL IVPUSH ×3 (01:11→16:41)
[2024-01-10] MEDS: fentaNYL citrate/PF 100 MCG/2 ML VIAL 25 MCG IVPUSH (01:11)
--- NOTE | 2024-01-10 01:18 | ED_ITS ---
HPI - Abdominal Pain General Chief Complaint: Abdominal Pain Stated Complaint: n/v, hernia pain? Time Seen by Provider: 01/10/24 00:51 Source: patient Mode of arrival: ambulatory History of Present Illness HPI narrative: 73-year-old female who has a history of prior ventral hernia with mesh repair and presents with onset of vomiting after eating dinner and decreased flatus and significant pain at surgical site. Related Data Home Medications Medication Instructions Recorded Confirmed atorvastatin 20 mg tablet 20 mg PO DAILY 08/15/20 01/03/24 loratadine 10 mg tablet 10 mg PO DAILY 08/15/20 01/03/24 omeprazole 20 mg capsule,delayed 20 mg PO DAILY 08/15/20 01/03/24 release tramadol 50 mg tablet 100 mg PO TID 08/15/20 01/03/24 clonazepam 2 mg tablet 2 mg PO BEDTIME PRN Restless Leg(S) 07/09/21 01/03/24 cholecalciferol (vitamin D3) 25 25 mcg PO BID 08/16/21 01/03/24 mcg (1,000 unit) tablet (Vitamin D3) multivitamin 1 tab PO DAILY 08/16/21 01/03/24 diphenoxylate-atropine 2.5 1 tab PO QID PRN 07/22/22 01/03/24 mg-0.025 mg tablet alendronate 70 mg tablet 70 mg PO QWEEK 03/01/23 01/03/24 aspirin 81 mg tablet,delayed 81 mg PO DAILY 03/01/23 01/03/24 release (Adult Aspirin Regimen) clopidogrel 75 mg tablet (Plavix) 75 mg PO DAILY 03/01/23 01/03/24 levothyroxine 50 mcg tablet 50 mcg PO QAM 03/29/23 01/03/24 Previous Rx's Medication Instructions Recorded acetaminophen 325 mg capsule 650 mg (2 x 325 mg) PO QID PRN 10/07/21 pain 30 days #240 caps compression socks, medium #2 ea 03/29/23 valsartan 160 mg tablet 80 mg (1/2 x 160 mg) PO DAILY 90 09/20/23 days #45 tabs amiodarone 200 mg tablet 100 mg (1/2 x 200 mg) PO DAILY #45 10/19/23 tabs carvedilol 12.5 mg tablet 12.5 mg PO BID #180 tabs 10/19/23 furosemide 20 mg tablet 20 mg PO DAILY Edema #90 tabs 12/16/23 Allergies Allergy/AdvReac Type Severity Reaction Status Date / Time levofloxacin [From LEVAQUIN] Allergy Intermediate RASH Verified 01/10/24 00:42 Darvocet-N 50 Allergy Mild hives Uncoded 01/10/24 00:42 Sulfacet-R Allergy Unknown gi Uncoded 01/10/24 00:42 Review of Systems Review of Systems Pertinent positives and negatives as stated in [facility] Past Medical History Source: nursing notes reviewed Medical History History of uterine cancer Mild intermittent asthma Osteoarthritis of left hip Cardiomyopathy CAD (coronary artery disease) HTN (hypertension) Biventricular ICD (implantable cardioverter-defibrillator) in place (~04/2020) Paroxysmal atrial fibrillation LBBB (left bundle branch block) Chronic systolic heart failure Surgical History Hx of hysterectomy History of total left hip replacement Hx of hernia repair History of permanent cardiac pacemaker placement Family History Family History Father Cancer Mother No problems noted. Social History Social History Household Members: Family Household Members Other:: granddaughter Housing: House Do you presently have visiting nurse or other home services: No Alcohol intake: never Patient Tobacco Use Status: Never used Tobacco Smoked in Last 30 Days: No Use of substances other than those prescribed or required for medical reasons: No Advance Directives: No Advance Directives Information Provided: No service: No Current occupational status: retired Current occupation: rt handed Physical Exam ED Vital Signs: Vital Signs - 24 hr 01/10/24 00:38 01/10/24 02:56 01/10/24 06:50 Temperature 98.2 F 98.4 F Pulse Rate 64 61 62 Respiratory Rate 18 13 16 Blood Pressure 151/54 H 130/63 115/55 L Pulse Oximetry 96 96 96 Oxygen Delivery Method Room Air Room Air Room Air 01/10/24 07:11 Temperature 97.9 F Pulse Rate 66 Respiratory Rate 14 Blood Pressure 119/47 L Pulse Oximetry 95 Oxygen Delivery Method Room Air BMI result Body Mass Index 31.4 VITAL SIGNS: Reviewed. GENERAL: Well developed, well nourished, in moderate distress. HEAD: Normocephalic/atraumatic EYES: PERRLA, EOMI EARS: Ext canals without abnormality NOSE: Nares patent bilateral OROPHARYNX: no oral lesions noted, posterior pharynx clear NECK: Supple, no adenopathy LUNGS: Normal breath sounds. No adventitious sounds or accessory muscle use. SpO2<96> CARDIOVASCULAR: Regular rate and rhythm without noted murmurs ABDOMEN: Soft, hard/painful firmness at mid surgical site, non-distended with bowel sounds. MUSCULOSKELETAL: No tenderness, deformities, or effusions noted on gross inspection. EXTREMITIES: No cyanosis, clubbing or edema. SKIN: Inspection of the skin reveals no rashes NEUROLOGIC: Alert and oriented x 4. Strength and sensation to light touch were grossly intact x 4. Medical Decision Making Medical Decision Making [facility] Narrative: 73-year-old female with history and clinical presentation, DDX: SBO, strangulated hernia INTERVENTION: IV fluids, pain medication, antiemetic, CT abdomen/pelvis with p.o./IV contrast I reviewed all investigations and hematologic indices negative for leukocytosis/anemia/thrombocytopenia. Coagulation studies are within normal limits. Chemistry indices are not significant for DOROTA/electrolyte or liver enzyme derangements. CT scan with IV and oral contrast demonstrated bowel obstruction. 0630: I discussed case with Dr. [place] who recommends ALBERT as there was a significant delay between the time that the patient was originally scanned and his evaluation. Signed out to Dr Johanny simmons/dioni PRICE Differential Diagnosis Differential Diagnoses: The differential diagnosis associated with the presentation includes Please see the discussion above Admission/Observation Consideration of admission/observation: Escalation of care including admission/observation considered Please see the discussion above Consult Healthcare Provider Management of the patient was discussed with: Tank Washer Please see the discussion above Lab Data [facility] Lab Attestation statement: I reviewed the patient's lab results. Please see the discussion above 01/10/24 01:01 01/10/24 01:01 Labs: Lab Results 01/10/24 01/10/24 Range/Units 01:01 01:55 WBC 10.5 (4.8-10.8) X10*3/uL RBC 3.97 L (4.20-5.50) X10*6/uL Hgb 12.6 (12.0-16.0) g/dl Hct 38.6 (37.0-47.0) % MCV 97.2 (80.0-98.0) fL MCH 31.7 (27.0-33.0) pg MCHC 32.6 (31.0-35.0) g/dl RDW 14.2 (11.0-16.0) % Plt Count 191 (160-400) X10*3/uL MPV 9.6 (9.4-12.3) fL Immature Gran % (Auto) 0.4 (0.0-0.4) % Neut % (Auto) 84.0 H (45-73) % Lymph % (Auto) 7.1 L (20-40) % Assumption % (Auto) 5.6 (2-11) % Eos % (Auto) 2.4 (0-4) % Baso % (Auto) 0.5 (0-2) % Lymph # (Auto) 0.7 L (1.2-4.9) X10*3/uL Assumption # (Auto) 0.6 (0.1-1.2) X10*3/uL Eos # (Auto) 0.3 (0.0-0.4) X10*3/uL Baso # (Auto) 0.1 (0.0-0.2) X10*3/uL Abs Immat Gran (auto) 0.04 H (0.00-0.03) X10*3/uL Absolute Neuts (auto) 8.8 H (2.0-8.3) x10*3/uL Absolute Nucleated RBC 0.000 (0.0-0.012) X10*3/uL Nucleated RBC % (auto) 0.0 (0.0-0.2) /100WBC PT 11.9 (11.1-13.3) SEC INR 1.0 (0.9-1.1) Sodium 143 (135-145) mmol/L Potassium 4.1 (3.3-5.1) mmol/L Chloride 106 (96-108) mmol/L Carbon Dioxide 28 (22-29) mmol/L Anion Gap 13 (12-20) BUN 23 H (9-16) mg/dL Creatinine 1.10 (0.5-1.4) mg/dL Estim Creat Clear Calc 42.0 Estimated GFR 49 Random Glucose 141 H (60-115) mg/dL Calcium 9.5 D (8.4-10.2) mg/dL Total Bilirubin 0.4 (0.0-1.0) mg/dL AST 21 (5-31) U/L ALT 14 (0-31) U/L Alkaline Phosphatase 103 (39-117) U/L Total Protein 7.2 (6.5-8.0) g/dL Albumin 3.9 (3.5-5.0) g/dL Lipase 13 (8-78) U/L Independent Interpretation I performed an independent interpretation of an: EKG Interpretation: Paced rhythm, no STEMI, QTC within normal limits. Radiology Impression Discussion of test interpretation with radiology: I have reviewed the radiologist's reading. Radiologist Impression: Please see the discussion above External Record Review External record reviewed: Outpatient record, Prior outpatient labs and Prior outpatient radiology Chronic Conditions Patient?s care impacted by: Other Paroxysmal atrial fibrillation, ICD, systolic heart failure Medications Administered Discontinued Medications Generic Name Dose Route Start Last Admin Trade Name Freq PRN Reason Stop Dose Admin Diatrizoate Meglum/Diatrizoate Sod 30 ml 01/10/24 01:53 01/10/24 01:53 Diatrizoate Meglumine, Sodium 30 Ml Solution PO 01/10/24 01:54 30 ml ONCE ONE Administration Fentanyl 25 mcg 01/10/24 01:02 01/10/24 01:11 Fentanyl Citrate/Pf 100 Mcg/2 Ml Vial IVPUSH 01/10/24 01:03 25 mcg ONCE ONE Administration Protocol Sodium Chloride 500 mls @ 999 mls/hr 01/10/24 01:15 01/10/24 02:46 Ns IV 01/10/24 01:45 Infused .Q31M AMANDA Infusion Iohexol 85 ml 01/10/24 03:38 01/10/24 03:38 Iohexol 350 Mg/Ml 100 Ml Infus..Btl IV 01/10/24 03:39 85 ml ONCE ONE Administration Ondansetron HCl 4 mg 01/10/24 01:02 01/10/24 01:11 Ondansetron Hcl 4 Mg/2 Ml Vial IVPUSH 01/10/24 01:03 4 mg ONCE ONE Administration Critical Care Time Critical Care Time Critical Care Time: Yes Total Critical Care Time: 45 Attestation: I personally attest to this time spent taking care of the patient. Discharge Plan Discharge Clinical Impression: Abdominal pain Patient Disposition: Still a Patient Prescriptions: No Action (DME) compression socks, medium Misc See Rx Instructions .Route Qty: 2 0RF Rx Instructions: As directed valsartan 160 mg tablet 80 mg PO DAILY 90 Days Qty: 45 3RF amiodarone 200 mg tablet 100 mg PO DAILY Qty: 45 3RF carvedilol 12.5 mg tablet 12.5 mg PO BID Qty: 180 3RF furosemide 20 mg tablet 20 mg PO DAILY Qty: 90 2RF Rx Instructions: take 2 when having swelling multivitamin Tablet 1 tab PO DAILY cholecalciferol (vitamin D3) [Vitamin D3] 25 mcg (1,000 unit) Tablet 25 mcg PO BID acetaminophen 325 mg capsule 650 mg PO QID PRN (Reason: pain) 30 Days Qty: 240 0RF omeprazole 20 mg capsule,delayed release(DR/EC) 20 mg PO DAILY loratadine 10 mg tablet 10 mg PO DAILY tramadol 50 mg tablet 100 mg PO TID atorvastatin 20 mg tablet 20 mg PO DAILY clonazepam 2 mg tablet 2 mg PO BEDTIME PRN (Reason: Restless Leg(S)) diphenoxylate-atropine 2.5-0.025 mg tablet 1 tab PO QID PRN alendronate 70 mg tablet 70 mg PO QWEEK aspirin [Adult Aspirin Regimen] 81 mg tablet,delayed release (DR/EC) 81 mg PO DAILY clopidogrel [Plavix] 75 mg tablet 75 mg PO DAILY levothyroxine 50 mcg tablet 50 mcg PO QAM
[2024-01-10 01:20] LABS: Alanine Aminotransferase 14 U/L (0-31); Albumin Level 3.9 g/dL (3.5-5.0); Alkaline Phosphatase 103 U/L (39-117); Anion Gap 13 (12-20); Aspartate Amino Transferase 21 U/L (5-31); Bilirubin Total 0.4 mg/dL (0.0-1.0); Blood Urea Nitrogen 23 mg/dL (9-16); Calcium 9.5 mg/dL (8.4-10.2); Carbon Dioxide 28 mmol/L (22-29); Chloride 106 mmol/L (96-108); Estimated Glomerular Filt Rate 49; Glucose Random 141 mg/dL (60-115); Lipase 13 U/L (8-78); Potassium 4.1 mmol/L (3.3-5.1); Sodium 143 mmol/L (135-145); Total Protein 7.2 g/dL (6.5-8.0)
--- NOTE | 2024-01-10 01:20 | ECG_ITS ---
Test Reason : ABD PAIN Blood Pressure : / mmHG Vent. Rate : 061 BPM Atrial Rate : 061 BPM P-R Int : 154 ms QRS Dur : 138 ms QT Int : 530 ms P-R-T Axes : 073 207 080 degrees QTc Int : 533 ms Sinus rhythm with Ventricular-paced rhythm Abnormal ECG When compared with ECG of 01-OCT-2021 22:39, No significant changes seen Referred By: Zhanna Leon Electronically Signed By:RICK DELGADO MD
[2024-01-10] MEDS: Diatrizoate Meglumine, Sodium 30 ML SOLUTION PO (01:53)
[2024-01-10 02:04] LABS: Prothrombin Time 11.9 SEC (11.1-13.3)
[2024-01-10] MEDS: iohexoL 350 MG/ML 100 ML INFUS..BTL 85 ML IV (03:38)
--- NOTE | 2024-01-10 09:35 | PC.NURSE ---
PT A/O X 4, NO SOB/ELHAM NOTED SPEAKS IN FULL SENTENCES. PT C/O 3/10 ABD PAIN. ABD AROUND UMBILICAL AREA IS DISTENDED/SLIGHTLY HARD. PT IS C/O SLIGHT NAUSEA. PT AWARE OF PLAN OF CARE. WILL CONTINUE TO MONITOR.
[2024-01-10] MEDS: Morphine Sulfate 4 MG/ML CARTRIDGE IVPUSH (09:59)
--- NOTE | 2024-01-10 10:28 | P.HPGS_ITS ---
History of Present Illness History of Present Illness Date of Service: 01/10/24 Chief complaint: n/v, hernia pain? Narrative: Marlin Correa is a 73 year old female with significant past medical history including hypertension, hyperlipidemia, left bundle branch block, CAD, cardiomyopathy, Bi VICD, paroxysmal AFib with Watchman device 02/20 and hx of prior ventral hernia with mesh repair with known recurrence and who presents with acute onset of vomiting after eating dinner last night. She was in her usual state of health and was able to tolerate her entire dinner but reports she developed nausea and vomiting with multiple episodes right after. She then developed severe pain at the hernia site and reports her hernia was larger and more firm then it usually is. She also notes constipation over the past 3-4 months and has been taking senna to help her move her bowels. She was passing flatus yesterday but stopped when the pain occurred. Due to the severity of the pain and the nausea/vomiting she presented to the ED for evaluation. Work up in the ED included CBC, BMP, LFTs which were WNL and CT scan abd/pelvis with IV/PO contrast showed a large defect in the right lower abdominal wall with dilated segment of small bowel within the defect with normal caliber distal small bowel exiting concerning for SBO. F/u AXR this morning was obtained however the contrast was too dilute to evaluate for SBO. Upon reassessment, her pain and nausea is slightly improved with analgesics. She has begun to pass flatus. Her hernia feels back to normal size but she does have persistent pain. Review of Systems Constitutional: Constitutional: Denies chills and Denies fever(s) ENT: Denies dizziness Cardiovascular: Cardiovascular: Denies chest pain and Denies dyspnea Respiratory: Respiratory: Denies dyspnea Gastrointestinal: Gastrointestinal: Reports as per HPI, Denies melena, Denies hematochezia and Denies hematemesis Genitourinary: Genitourinary: Denies hematuria Integumentary/Breasts: Skin/Breast: Denies rash and Denies jaundice Neurologic: Denies dizziness [facility] Past Medical History Medical History (Updated 01/10/24 @ 10:41 by Gail Najera PA-C) History of uterine cancer Mild intermittent asthma Osteoarthritis of left hip Cardiomyopathy CAD (coronary artery disease) HTN (hypertension) Biventricular ICD (implantable cardioverter-defibrillator) in place (~04/2020) Paroxysmal atrial fibrillation LBBB (left bundle branch block) Chronic systolic heart failure Family History Family History Father Cancer Mother No problems noted. Surgical History Surgical History Hx of hysterectomy History of total left hip replacement Hx of hernia repair History of permanent cardiac pacemaker placement Social History Social History Household Members: Family Household Members Other:: granddaughter Housing: House Do you presently have visiting nurse or other home services: No Alcohol intake: never Patient Tobacco Use Status: Never used Tobacco service: No Current occupational status: retired Current occupation: rt handed Meds Allergies Allergy/AdvReac Type Severity Reaction Status Date / Time levofloxacin [From LEVAQUIN] Allergy Intermediate RASH Verified 01/10/24 00:42 Darvocet-N 50 Allergy Mild hives Uncoded 01/10/24 00:42 Sulfacet-R Allergy Unknown gi Uncoded 01/10/24 00:42 Active Medications: Current Medications Lactated Ringer's (Lr) 1,000 mls @ 80 mls/hr IVCONT .[id number] [facility] Acetaminophen (Ofirmev) 1,000 mg in 100 mls @ 400 mls/hr IV Q6H PRN PRN Reason: abdominal pain Morphine Sulfate (Morphine Sulfate 4 Mg/Ml Cartridge) 4 mg IVPUSH Q4H PRN; Protocol PRN Reason: Pain, Severe (Pain Scale 7-10) Ondansetron HCl (Ondansetron Hcl 4 Mg/2 Ml Vial) 4 mg IVPUSH Q8H PRN PRN Reason: Nausea and Vomiting Sodium Chloride (0.9 % Sodium Chloride Flush 3 Ml Syringe) 3 ml IVFLUSH QSHIFT [facility] Home Medications Medication Instructions Recorded Confirmed Last Taken Type atorvastatin 20 mg tablet 20 mg PO DAILY 08/15/20 01/03/24 10/01/21 21:00 History loratadine 10 mg tablet 10 mg PO DAILY 08/15/20 01/03/24 10/01/21 09:00 History omeprazole 20 mg capsule,delayed 20 mg PO DAILY 08/15/20 01/03/24 10/01/21 09:00 History release tramadol 50 mg tablet 100 mg PO TID 08/15/20 01/03/24 10/01/21 21:00 History clonazepam 2 mg tablet 2 mg PO BEDTIME PRN Restless Leg(S) 07/09/21 01/03/24 09/30/21 21:00 History cholecalciferol (vitamin D3) 25 25 mcg PO BID 08/16/21 01/03/24 10/01/21 21:00 History mcg (1,000 unit) tablet (Vitamin D3) multivitamin 1 tab PO DAILY 08/16/21 01/03/24 10/01/21 09:00 History diphenoxylate-atropine 2.5 1 tab PO QID PRN 07/22/22 01/03/24 Unknown History mg-0.025 mg tablet alendronate 70 mg tablet 70 mg PO QWEEK 03/01/23 01/03/24 Unknown History aspirin 81 mg tablet,delayed 81 mg PO DAILY 03/01/23 01/03/24 Unknown History release (Adult Aspirin Regimen) clopidogrel 75 mg tablet (Plavix) 75 mg PO DAILY 03/01/23 01/03/24 Unknown History levothyroxine 50 mcg tablet 50 mcg PO QAM 03/29/23 01/03/24 Unknown History Physical Exam Vital Signs: Vital Signs: Last Vital Signs Temp 97.9 F 01/10/24 10:00 Pulse 65 01/10/24 10:00 Resp 12 01/10/24 10:00 BP 113/42 L 01/10/24 10:00 Pulse Ox 96 01/10/24 10:00 O2 Del Method Room Air 01/10/24 10:00 BMI result Body Mass Index 31.4 Const: General: comfortable, alert and anxious Orientation/consciousness: patient oriented x3 Resp: Effort & Inspection: normal respiratory effort Cardio: Rate: regular rate GI: Other: palpable large lower abdominal hernia, soft but tender Inspection: No distended, Yes scar (midline at umbilicus ) and Yes visible herniation Palpation (GI): Soft to palpation, Tenderness to palpation present (GI) (moderate lower abdominal tenderness, especially at hernia site ), no guarding and not rigid Percussion: Yes normal to percussion Skin: General skin exam: no rashes or lesions noted Neuro: General: patient oriented x3 and moves all extremities Results Results Labs: Short CBC 01/10/24 Range/Units 01:01 WBC 10.5 (4.8-10.8) X10*3/uL Hgb 12.6 (12.0-16.0) g/dl Hct 38.6 (37.0-47.0) % Plt Count 191 (160-400) X10*3/uL BMP 01/10/24 01:01 Sodium 143 Potassium 4.1 Chloride 106 Carbon Dioxide 28 BUN 23 H Creatinine 1.10 Calcium 9.5 D Liver Function 01/10/24 Range/Units 01:01 Total Bilirubin 0.4 (0.0-1.0) mg/dL AST 21 (5-31) U/L ALT 14 (0-31) U/L Alkaline Phosphatase 103 (39-117) U/L Albumin 3.9 (3.5-5.0) g/dL Abdomen CT scan report/results: report reviewed and image reviewed Assessment and Plan (1) Recurrent ventral hernia: Status: Acute (2) Abdominal pain: Status: Acute Plan 73 year old female with extensive medical comorbidities with hx of prior ventral hernia repair with known recurrence who presents with acute onset nausea/vomiting and pain at her hernia site with CT scan demonstrating a large right lower abdominal wall hernia with dilated SB loops concerning for SBO. Patient will be admitted to the surgical service for further treatment of the abdominal pain, possible SBO. She feels somewhat improved this morning and is passing flatus however f/u AXR was difficult to interpret as contrast was already diluted and she is having persistent abd pain and associated tenderness at the hernia site. Will therefore order SBFT for today to further assess for SBO. Cont NPO status, gentle IVF. May need NGT if vomiting continues. Hospitalist consult obtained for management of medical comorbidities, will discuss if possible to hold dual antiplatelet therapy until need for surgical intervention ruled out. Patient is high risk for surgical procedure and this would be technically difficult procedure given the size of the hernia with likely loss of domain. This has all been discussed with the patient and she is in agreement. Quality Stroke Does the patient have a stroke diagnosis?: No VTE Prior VTE?: No VTE Risk Level:: Medical - moderate - high VTE Device Contraindication: N/A - Device Ordered VTE Drug Contraindication: N/A - Med Ordered Procedures Date of Service Date of Service: 01/10/24
--- NOTE | 2024-01-10 10:34 | ECG_ITS ---
Test Reason : ABD PAIN Blood Pressure : / mmHG Vent. Rate : 127 BPM Atrial Rate : 000 BPM P-R Int : 000 ms QRS Dur : 132 ms QT Int : 258 ms P-R-T Axes : 000 083 082 degrees QTc Int : 374 ms Poor data quality Possible Normal sinus rhythm with Ventricular-paced rhythm Abnormal ECG When compared with ECG of 10-JAN-2024 01:40, No significant changes seen Referred By: Tenzin Orlando Electronically Signed By:RICK DELGADO MD
[2024-01-10] MEDS: Lactated Ringers 1,000 ML 80 ML IVCONT (11:16)
--- NOTE | 2024-01-10 11:44 | PHA.MEDREC ---
Pharmacy Consult ? Medication Reconciliation Pharmacy has completed the medication reconciliation. Confirmed medications with patient and through claim history. Patient had very good recall of her medication. She also reports that she takes her levothyroxine in the middle of the night (when she gets up to go to the bathroom) when she knows she has an empty stomach and hasn't had any problems since she started this.
--- NOTE | 2024-01-10 12:24 | HO.PM.IMCN ---
History of Present Illness Data of Consult Service Date: 01/10/24 Requesting physician: Gail Najera Primary Care Provider: Baljinder Blanchard MD [facility] Reason for consult: medical management 73 year old female with history of htn, hld, LBBB, cardiomyopathy, CAD, bi vicd in place, PAF s/p watchman device, prior ventral hernia admitted to general surgery with consult placed to hospitalist service for medical management. The patient is reporting abd pain, but has no other complaints. Apparently pain set in last night while eating dinner with associated nasuea and vomiting. Then reported severe pain at hernia site which was reportedly larger and firmer than previously. Per surgery H&P, hernia feels back to normal size but continues to have pain. She is passing flatus. Denies any etoh use, cigarette smoking, or drug use. Follows with Dr Swanson in cardiology. Review of Systems Review of Systems: Yes all other systems are reviewed and are negative [facility] Medical History History of uterine cancer Mild intermittent asthma Osteoarthritis of left hip Cardiomyopathy CAD (coronary artery disease) HTN (hypertension) Biventricular ICD (implantable cardioverter-defibrillator) in place (~04/2020) Paroxysmal atrial fibrillation LBBB (left bundle branch block) Chronic systolic heart failure Family History Father Cancer Mother No problems noted. Surgical History Hx of hysterectomy History of total left hip replacement Hx of hernia repair History of permanent cardiac pacemaker placement Social History Household Members: Family Household Members Other:: granddaughter Housing: House Do you presently have visiting nurse or other home services: No Alcohol intake: never Patient Tobacco Use Status: Never used Tobacco Smoked in Last 30 Days: No Use of substances other than those prescribed or required for medical reasons: No Advance Directives: No Advance Directives Information Provided: No service: No Current occupational status: retired Current occupation: rt handed Meds Allergies Allergy/AdvReac Type Severity Reaction Status Date / Time levofloxacin [From LEVAQUIN] Allergy Intermediate RASH Verified 01/10/24 00:42 Darvocet-N 50 Allergy Mild hives Uncoded 01/10/24 00:42 Sulfacet-R Allergy Unknown gi Uncoded 01/10/24 00:42 Active Medications: Current Medications Lactated Ringer's (Lr) 1,000 mls @ 80 mls/hr IVCONT .[id number] [facility] Last Admin: 01/10/24 11:16 Dose: 80 mls/hr Acetaminophen (Ofirmev) 1,000 mg in 100 mls @ 400 mls/hr IV Q6H PRN PRN Reason: abdominal pain Morphine Sulfate (Morphine Sulfate 4 Mg/Ml Cartridge) 4 mg IVPUSH Q4H PRN; Protocol PRN Reason: Pain, Severe (Pain Scale 7-10) Ondansetron HCl (Ondansetron Hcl 4 Mg/2 Ml Vial) 4 mg IVPUSH Q8H PRN PRN Reason: Nausea and Vomiting Sodium Chloride (0.9 % Sodium Chloride Flush 3 Ml Syringe) 3 ml IVFLUSH QSHIFT [facility] Home Medications Medication Instructions Recorded Confirmed Last Taken Type atorvastatin 20 mg tablet 20 mg PO BEDTIME 08/15/20 01/10/24 01/09/24 History loratadine 10 mg tablet 10 mg PO DAILY 08/15/20 01/10/24 01/09/24 History omeprazole 20 mg capsule,delayed 20 mg PO DAILY 08/15/20 01/10/24 01/09/24 History release tramadol 50 mg tablet 100 mg PO TID 08/15/20 01/10/24 01/09/24 History clonazepam 2 mg tablet 2 mg PO BEDTIME PRN Restless Leg(S) 07/09/21 01/10/24 01/09/24 History cholecalciferol (vitamin D3) 25 25 mcg PO BID 08/16/21 01/10/24 01/09/24 History mcg (1,000 unit) tablet (Vitamin D3) multivitamin 1 tab PO DAILY 08/16/21 01/10/24 01/09/24 History alendronate 70 mg tablet 70 mg PO DELGADO 03/01/23 01/10/24 01/08/24 History aspirin 81 mg tablet,delayed 81 mg PO DAILY 03/01/23 01/10/24 01/09/24 History release (Adult Aspirin Regimen) levothyroxine 75 mcg tablet 75 mcg PO QAM 0301/10/24 01/09/24 History sennosides 8.6 mg tablet (senna) 17.2 mg PO BEDTIME PRN Constipation 01/10/24 01/10/24 Unknown History zinc oxide 13 % topical cream 1 appl topical DAILY PRN buttock 01/10/24 01/10/24 Unknown History Physical Exam Vital Signs and Narrative: Vital Signs: Last Vital Signs Temp 97.9 F 01/10/24 10:00 Pulse 64 01/10/24 12:21 Resp 14 01/10/24 12:21 BP 102/48 L 01/10/24 12:21 Pulse Ox 94 01/10/24 12:21 O2 Del Method Room Air 01/10/24 12:21 BMI result Body Mass Index 31.4 Constitutional - Awake and Alert, No apparent distress Eyes - PERRLA, EOMI Cardiovascular - S1S2, RRR, No edema Respiratory - Normal lung expansion, Normal respiratory effort, No respiratory distress, CTA bilaterally Extremities - no calf tenderness bilaterally, no swelling Skin - Warm/Dry Neurological - Alert & oriented x3 Psychological - Appropriate affect Results Labs 01/10/24 01:01 01/10/24 01:01 Labs: Laboratory Results - last 24 hr 01/10/24 01/10/24 01:01 01:55 MCV 97.2 MCH 31.7 MCHC 32.6 RDW 14.2 Plt Count 191 MPV 9.6 Immature Gran % (Auto) 0.4 Neut % (Auto) 84.0 H Lymph % (Auto) 7.1 L [place] % (Auto) 5.6 Eos % (Auto) 2.4 Baso % (Auto) 0.5 Lymph # (Auto) 0.7 L [place] # (Auto) 0.6 Eos # (Auto) 0.3 Baso # (Auto) 0.1 Abs Immat Gran (auto) 0.04 H Absolute Neuts (auto) 8.8 H Absolute Nucleated RBC 0.000 Nucleated RBC % (auto) 0.0 PT 11.9 INR 1.0 Anion Gap 13 Estim Creat Clear Calc 42.0 Estimated GFR 49 Random Glucose 141 H Calcium 9.5 D Total Bilirubin 0.4 AST 21 ALT 14 Alkaline Phosphatase 103 Total Protein 7.2 Albumin 3.9 Lipase 13 Imaging Radiologist's Impressions: Impressions Abdomen/Pelvis CT 01/10/24 03:40 IMPRESSION: Large right lower abdominal wall defect/hernia with dilated segment of distal small bowel entering the medial portion of the defect with normal caliber distal small bowel exiting the hernia. Suspect developing or early partial small bowel obstruction. Osteopenia. L5 compression fracture and apparent bilateral sacral fractures and healing right pubic rami fractures. Fleischner guidelines were followed. KUB X-Ray 01/10/24 08:09 IMPRESSION: Some contrast is seen within the right lower quadrant bowel loops possibly small bowel, as well as within the bladder. Assessment and Plan (1) Hernia, ventral, with obstruction: Status: Acute Plan 73 year old female with history of htn, hld, LBBB, cardiomyopathy, CAD, bi vicd in place, PAF s/p watchman device, prior ventral hernia admitted to general surgery with consult placed to hospitalist service for medical management. #Abd pain/recurrent ventral hernia -hold aspirin until surgical intervention ruled out -pt is high risk for surgical procedure, would recommend cardiology evaluation preoperatively -plan per general surgery #HTN -bp soft, likely r/t narcotic pain medication -recommend resuming carvedilol this evening. Resume valsartan if blood pressure improves #HLD -continue statin #CAD/HFr EF (35-40%)/PAF/CM/HLD -resume carvedilol tand valsartan as above. Hold asa. Continue statin -continue amiodorone -recommend cardiology eval pre-operatively if indicated Thank you for this consult, will continue following.
--- NOTE | 2024-01-10 13:41 | PC.NURSE ---
VS /-. MD AWARE. NS 500ML BOLUS INITIATED. PT IS ASYMPTOMATIC.
[2024-01-10] MEDS: Amiodarone HCL 200 MG TABLET 100 MG PO (14:13)
--- NOTE | 2024-01-10 15:29 | PC.NURSE ---
POSITIVE PLACEMENT FOR NG-TUBE PER CXR.
[2024-01-10] MEDS: Acetaminophen 1,000 MG/100 ML PIGGYBACK 400 MG IV (16:41)
[2024-01-10] MEDS: Cholecalciferol (Vitamin D3) 25 MCG TABLET PO (21:57)
[2024-01-10] MEDS: Atorvastatin Calcium 20 MG TABLET PO (21:57)
[2024-01-11] MEDS: Lactated Ringers 1,000 ML 80 ML IVCONT ×2 (00:10→12:48)
[2024-01-11 04:00] VITALS: BP 146/63; PULSE 60; RESP 16; TEMP 36; O2SAT 95
[2024-01-11] MEDS: Levothyroxine Sodium 75 MCG TABLET PO (06:23)
[2024-01-11] MEDS: Omeprazole 20 MG CAPSULE.DR PO (06:23)
[2024-01-11 06:42] LABS: MANUAL DIFF FLAG NO
[2024-01-11 06:46] VITALS: BP 141/63; PULSE 63; RESP 16; TEMP 36.1; O2SAT 95
[2024-01-11 07:06] LABS: Basophils Percent Auto 0.6 % (0-2); Eosinophils Absolute Auto 0.2 X10*3/uL (0.0-0.4); Eosinophils Percent Auto 4.4 % (0-4); Hematocrit 34.9 % (37.0-47.0); Hemoglobin 11.3 g/dl (12.0-16.0); Imm Gran Abs Auto 0.02 X10*3/uL (0.00-0.03); Imm Gran Pct Auto 0.4 % (0.0-0.4); Lymphocytes Absolute Auto 0.5 X10*3/uL (1.2-4.9); Lymphocytes Percent Auto 9.2 % (20-40); Mean Corpuscular HGB Conc 32.4 g/dl (31.0-35.0); Mean Corpuscular Hemoglobin 32.1 pg (27.0-33.0); Mean Corpuscular Volume 99.1 fL (80.0-98.0); Monocytes Absolute Auto 0.5 X10*3/uL (0.1-1.2); Monocytes Percent Auto 10.3 % (2-11); Neutrophils Absolute Auto 3.9 x10*3/uL (2.0-8.3); Neutrophils Percent Auto 75.1 % (45-73); Platelet Count 153 X10*3/uL (160-400); Red Blood Count 3.52 X10*6/uL (4.20-5.50); Red Cell Distribution Width 14.6 % (11.0-16.0); White Blood Count 5.2 X10*3/uL (4.8-10.8)
[2024-01-11 07:08] LABS: Anion Gap 12 (12-20); Blood Urea Nitrogen 14 mg/dL (9-16); Calcium 8.5 mg/dL (8.4-10.2); Carbon Dioxide 26 mmol/L (22-29); Chloride 113 mmol/L (96-108); Creatinine Clr Calc Pharmacy 54.6; Estimated Glomerular Filt Rate > 60; Glucose Random 72 mg/dL (60-115); Potassium 3.5 mmol/L (3.3-5.1); Sodium 147 mmol/L (135-145)
--- NOTE | 2024-01-11 07:11 | HO.PM.IMPN ---
Subjective Subjective Date of Service: 01/11/24 Interval History: F/u on med management for HTN, CAD, PAF. On surgical service for ventral hernia, she is doing fairly well. She reports having diarrhea, no abd pain Physical Exam Vital Signs: Vital Signs: Last Vital Signs Temp 97 F 01/11/24 06:46 Pulse 63 01/11/24 06:46 Resp 16 01/11/24 06:46 BP 141/63 H 01/11/24 06:46 Pulse Ox 95 01/11/24 06:46 O2 Del Method Room Air 01/11/24 06:46 BMI result Body Mass Index 33.8 Constitutional - Awake and Alert, No apparent distress Eyes - PERRLA, EOMI Cardiovascular - S1S2, RRR, No edema Respiratory - Normal lung expansion, Normal respiratory effort, No respiratory distress, CTA bilaterally GI-Abdomen soft, NT, faint bowel sounds Extremities - no calf tenderness bilaterally, no swelling Skin - Warm/Dry Neurological - Alert & oriented x3 Psychological - Appropriate affect Objective Data Active Medications Amiodarone HCl (Amiodarone Hcl 200 Mg Tablet) 100 mg PO DAILY [facility] Last Admin: 01/10/24 14:13 Dose: 100 mg Documented By: DARCI Atorvastatin Calcium (Atorvastatin Calcium 20 Mg Tablet) 20 mg PO BEDTIME [facility] Last Admin: 01/10/24 21:57 Dose: 20 mg Documented By: CASTILLO Clonazepam (Clonazepam 1 Mg Tablet) 2 mg PO BEDTIME PRN PRN Reason: Restless Leg(S) Furosemide (Furosemide 20 Mg Tablet) 20 mg PO DAILY [facility]; Protocol Lactated Ringer's (Lr) 1,000 mls @ 80 mls/hr IVCONT .[id number] [facility] Last Admin: 01/11/24 00:10 Dose: 80 mls/hr Documented By: CASTILLO Acetaminophen (Ofirmev) 1,000 mg in 100 mls @ 400 mls/hr IV Q6H PRN PRN Reason: abdominal pain Last Infusion: 01/10/24 17:04 Dose: Infused Documented By: DANNIELLE Levothyroxine Sodium (Levothyroxine Sodium 75 Mcg Tablet) 75 mcg PO DAILY@0600 [facility] Last Admin: 01/11/24 06:23 Dose: 75 mcg Documented By: CASTILLO Loratadine (Loratadine 10 Mg Tablet) 10 mg PO DAILY [facility] Morphine Sulfate (Morphine Sulfate 4 Mg/Ml Cartridge) 4 mg IVPUSH Q4H PRN; Protocol PRN Reason: Pain, Severe (Pain Scale 7-10) Multivitamins/Vitamin C (Multivitamin Tablet) 1 tab PO DAILY [facility] Omeprazole (Omeprazole 20 Mg Capsule.Dr) 20 mg PO DAILY@0630 [facility] Last Admin: 01/11/24 06:23 Dose: 20 mg Documented By: CASTILLO Ondansetron HCl (Ondansetron Hcl 4 Mg/2 Ml Vial) 4 mg IVPUSH Q8H PRN PRN Reason: Nausea and Vomiting Last Admin: 01/10/24 16:41 Dose: 4 mg Documented By: PARMONICO Senna (Sennosides 8.6 Mg Tablet) 17.2 mg PO BEDTIME PRN PRN Reason: Constipation Sodium Chloride (0.9 % Sodium Chloride Flush 3 Ml Syringe) 3 ml IVFLUSH QSHIFT [facility] Last Admin: 01/11/24 00:11 Dose: Not Given Documented By: CASTILLO Non-Admin Reason: IV Running Vitamin D (Cholecalciferol (Vitamin D3) 25 Mcg Tablet) 25 mcg PO BID [facility] Last Admin: 01/10/24 21:57 Dose: 25 mcg Documented By: CASTILLO Zinc Oxide (Zinc Oxide (Triple Paste) 56.7 Gm Oint) 1 appl TOPICAL DAILY PRN PRN Reason: buttock Labs 01/11/24 05:53 01/11/24 05:53 Labs: Laboratory Results - last 24 hr 01/11/24 05:53 MCV 99.1 H MCH 32.1 MCHC 32.4 RDW 14.6 Plt Count 153 L MPV 10.0 Immature Gran % (Auto) 0.4 Neut % (Auto) 75.1 H Lymph % (Auto) 9.2 L [place] % (Auto) 10.3 Eos % (Auto) 4.4 H Baso % (Auto) 0.6 Lymph # (Auto) 0.5 L [place] # (Auto) 0.5 Eos # (Auto) 0.2 Baso # (Auto) 0.0 Abs Immat Gran (auto) 0.02 Absolute Neuts (auto) 3.9 Absolute Nucleated RBC 0.000 Nucleated RBC % (auto) 0.0 Anion Gap 12 Estim Creat Clear Calc 54.6 Estimated GFR > 60 Random Glucose 72 Calcium 8.5 D Assessment and Plan (1) Hernia, ventral, with obstruction: Status: Acute (2) HTN (hypertension): Status: Acute Plan 73 year old female with history of htn, hld, LBBB, cardiomyopathy, CAD, bi vicd in place, PAF s/p watchman device, prior ventral hernia admitted to general surgery with consult placed to hospitalist service for medical management. #Abd pain/recurrent ventral hernia -hold aspirin until surgical intervention ruled out -pt is high risk for surgical procedure, would recommend cardiology evaluation preoperatively -plan per general surgery #HTN-BP rising -resume home meds #HLD -continue statin #CAD/HFr EF (35-40%)/PAF/CM/HLD -resume carvedilol and valsartan as above. Hold asa if surgery. Continue statin -continue amiodorone -recommend cardiology eval pre-operatively if indicated Quality Stroke Does the patient have a stroke diagnosis?: No VTE Prior VTE?: No VTE Risk Level:: Medical - moderate - high VTE Device Contraindication: N/A - Device Ordered VTE Drug Contraindication: N/A - Med Ordered
--- NOTE | 2024-01-11 07:40 | P.PNGS_ITS ---
Subjective Subjective Date of Service: 01/11/24 Interval history: Had multiple large loose BMs last night. Denies nausea. Abdominal pain is significantly improved. NGT with around 300cc of output overnight, has been taking ice chips. Physical Exam 2 Vital Signs: Vital Signs: Last Vital Signs Temp 97 F 01/11/24 06:46 Pulse 63 01/11/24 06:46 Resp 16 01/11/24 06:46 BP 141/63 H 01/11/24 06:46 Pulse Ox 95 01/11/24 06:46 O2 Del Method Room Air 01/11/24 06:46 BMI result Body Mass Index 33.8 Const: General: comfortable, no acute distress and alert O rientation/consciousness: patient oriented x3 Resp: Effort & Inspection: normal respiratory effort GI: Other: palpable RLQ hernia, soft, mildly tender Palpation (GI): Soft to palpation, no guarding and not rigid Skin: General skin exam: no rashes or lesions noted Neuro: General: patient oriented x3 and moves all extremities Objective Data Active Medications Amiodarone HCl (Amiodarone Hcl 200 Mg Tablet) 100 mg PO DAILY [facility] Last Admin: 01/10/24 14:13 Dose: 100 mg Documented By: DARCI Atorvastatin Calcium (Atorvastatin Calcium 20 Mg Tablet) 20 mg PO BEDTIME [facility] Last Admin: 01/10/24 21:57 Dose: 20 mg Documented By: CASTILLO Clonazepam (Clonazepam 1 Mg Tablet) 2 mg PO BEDTIME PRN PRN Reason: Restless Leg(S) Furosemide (Furosemide 20 Mg Tablet) 20 mg PO DAILY [facility]; Protocol Lactated Ringer's (Lr) 1,000 mls @ 80 mls/hr IVCONT .[id number] [facility] Last Admin: 01/11/24 00:10 Dose: 80 mls/hr Documented By: CASTILLO Acetaminophen (Ofirmev) 1,000 mg in 100 mls @ 400 mls/hr IV Q6H PRN PRN Reason: abdominal pain Last Infusion: 01/10/24 17:04 Dose: Infused Documented By: DANNIELLE Levothyroxine Sodium (Levothyroxine Sodium 75 Mcg Tablet) 75 mcg PO DAILY@0600 [facility] Last Admin: 01/11/24 06:23 Dose: 75 mcg Documented By: CASTILLO Loratadine (Loratadine 10 Mg Tablet) 10 mg PO DAILY [facility] Morphine Sulfate (Morphine Sulfate 4 Mg/Ml Cartridge) 4 mg IVPUSH Q4H PRN; Protocol PRN Reason: Pain, Severe (Pain Scale 7-10) Multivitamins/Vitamin C (Multivitamin Tablet) 1 tab PO DAILY [facility] Omeprazole (Omeprazole 20 Mg Capsule.Dr) 20 mg PO DAILY@0630 [facility] Last Admin: 01/11/24 06:23 Dose: 20 mg Documented By: CASTILLO Ondansetron HCl (Ondansetron Hcl 4 Mg/2 Ml Vial) 4 mg IVPUSH Q8H PRN PRN Reason: Nausea and Vomiting Last Admin: 01/10/24 16:41 Dose: 4 mg Documented By: PARROWA Senna (Sennosides 8.6 Mg Tablet) 17.2 mg PO BEDTIME PRN PRN Reason: Constipation Sodium Chloride (0.9 % Sodium Chloride Flush 3 Ml Syringe) 3 ml IVFLUSH QSHIFT [facility] Last Admin: 01/11/24 00:11 Dose: Not Given Documented By: CASTILLO Non-Admin Reason: IV Running Vitamin D (Cholecalciferol (Vitamin D3) 25 Mcg Tablet) 25 mcg PO BID [facility] Last Admin: 01/10/24 21:57 Dose: 25 mcg Documented By: CASTILLO Zinc Oxide (Zinc Oxide (Triple Paste) 56.7 Gm Oint) 1 appl TOPICAL DAILY PRN PRN Reason: buttock Labs 01/11/24 05:53 01/11/24 05:53 Labs: Laboratory Results - last 24 hr 01/11/24 05:53 MCV 99.1 H MCH 32.1 MCHC 32.4 RDW 14.6 Plt Count 153 L MPV 10.0 Immature Gran % (Auto) 0.4 Neut % (Auto) 75.1 H Lymph % (Auto) 9.2 L [place] % (Auto) 10.3 Eos % (Auto) 4.4 H Baso % (Auto) 0.6 Lymph # (Auto) 0.5 L [place] # (Auto) 0.5 Eos # (Auto) 0.2 Baso # (Auto) 0.0 Abs Immat Gran (auto) 0.02 Absolute Neuts (auto) 3.9 Absolute Nucleated RBC 0.000 Nucleated RBC % (auto) 0.0 Anion Gap 12 Estim Creat Clear Calc 54.6 Estimated GFR > 60 Random Glucose 72 Calcium 8.5 D Procedures Date of Service Date of Service: 01/11/24 Progress Note: A&P Assessment and plan (1) Recurrent ventral hernia: Status: Acute (2) Abdominal pain: Status: Acute Plan SBFT performed yesterday although imaging not in computer- stat read last night from computer technical support specialist from [facility] contrast in colon. She however has had multiple BMs and near resolution of her abd pain going against SBO. Will therefore dc NGT, advance to clears and then further as tolerated. OOB/ambulation. Patient comfortable with plan. Time Spent With Patient Time: Total time managing care of this patient today ____ minutes. Quality Stroke Does the patient have a stroke diagnosis?: No VTE Prior VTE?: No VTE Risk Level:: Medical - moderate - high VTE Device Contraindication: N/A - Device Ordered VTE Drug Contraindication: N/A - Med Ordered
[2024-01-11] MEDS: Amiodarone HCL 200 MG TABLET 100 MG PO (09:00)
[2024-01-11] MEDS: Furosemide 20 MG TABLET PO (09:01)
[2024-01-11] MEDS: Loratadine 10 MG TABLET PO (09:02)
[2024-01-11] MEDS: Cholecalciferol (Vitamin D3) 25 MCG TABLET PO ×2 (09:02→19:37)
[2024-01-11] MEDS: Multivitamin TABLET 1 TAB PO (09:02)
--- NOTE | 2024-01-11 10:25 | P.CONCA_ITS ---
History of Present Illness History of Present Illness Date of Service: 01/11/24 Requesting physician: Gail Najera Consult reason: pre-op evaluation Chief complaint: large ventral hernia Narrative: I was consulted to see Marlin as she came in with abdominal pain and for possible repair of the ventral hernia due to obstructive physiology. Patient has no cardiac symptoms. However since her CT scan and medical management and decompression her symptoms have improved. Patient has been receiving IV fluids. She has not had any orthopnea, PND, shortness of breath. No palpitations, lightheadedness, syncope. Denies any chest pain. No lightheadedness, syncope. Heart rate is remained controlled. I recently saw her in the office and her device was working well and she was doing well from cardiovascular perspective. Review of Systems 2 Constitutional: Constitutional: Reports lethargy and Reports weakness Eyes: Eyes: Reports no additional eye complaints Cardiovascular: Cardiovascular: Reports no additional cardiovascular complaints Gastrointestinal: Gastrointestinal: Reports abdominal pain and Reports diarrhea Genitourinary: Genitourinary: Reports no additional female genitourinary complaints Musculoskeletal: Musculoskeletal: Reports no additional musculoskeletal complaints Neurologic: Reports system reviewed and no additional complaints, except as documented and Reports weakness Psychiatric: Psychiatric: Reports no additional psychiatric complaints [facility] Past Medical History Medical History (Updated 01/11/24 @ 10:29 by Marvin Swanson MD) Pre-operative cardiovascular examination History of uterine cancer Mild intermittent asthma Osteoarthritis of left hip Cardiomyopathy CAD (coronary artery disease) HTN (hypertension) Biventricular ICD (implantable cardioverter-defibrillator) in place (~04/2020) Paroxysmal atrial fibrillation LBBB (left bundle branch block) Chronic systolic heart failure Family History Family History Father Cancer Mother No problems noted. Surgical History Surgical History Hx of hysterectomy History of total left hip replacement Hx of hernia repair History of permanent cardiac pacemaker placement Social History Social History Household Members: Other Household Members Other:: granddaughter Housing: House Do you presently have visiting nurse or other home services: Yes Alcohol intake: never Patient Tobacco Use Status: Never used Tobacco Second Hand Smoke Exposure: No service: No Current occupational status: retired Current occupation: rt handed Meds Allergies Allergy/AdvReac Type Severity Reaction Status Date / Time levofloxacin [From LEVAQUIN] Allergy Intermediate RASH Verified 01/10/24 00:42 Darvocet-N 50 Allergy Mild hives Uncoded 01/10/24 00:42 Sulfacet-R Allergy Unknown gi Uncoded 01/10/24 00:42 Active Medications: Current Medications Amiodarone HCl (Amiodarone Hcl 200 Mg Tablet) 100 mg PO DAILY [facility] Last Admin: 01/11/24 09:00 Dose: 100 mg Atorvastatin Calcium (Atorvastatin Calcium 20 Mg Tablet) 20 mg PO BEDTIME [facility] Last Admin: 01/10/24 21:57 Dose: 20 mg Clonazepam (Clonazepam 1 Mg Tablet) 2 mg PO BEDTIME PRN PRN Reason: Restless Leg(S) Furosemide (Furosemide 20 Mg Tablet) 20 mg PO DAILY [facility]; Protocol Last Admin: 01/11/24 09:01 Dose: 20 mg Lactated Ringer's (Lr) 1,000 mls @ 80 mls/hr IVCONT .[id number] [facility] Last Admin: 01/11/24 00:10 Dose: 80 mls/hr Acetaminophen (Ofirmev) 1,000 mg in 100 mls @ 400 mls/hr IV Q6H PRN PRN Reason: abdominal pain Last Infusion: 01/10/24 17:04 Dose: Infused Levothyroxine Sodium (Levothyroxine Sodium 75 Mcg Tablet) 75 mcg PO DAILY@0600 [facility] Last Admin: 01/11/24 06:23 Dose: 75 mcg Loratadine (Loratadine 10 Mg Tablet) 10 mg PO DAILY [facility] Last Admin: 01/11/24 09:02 Dose: 10 mg Morphine Sulfate (Morphine Sulfate 4 Mg/Ml Cartridge) 4 mg IVPUSH Q4H PRN; Protocol PRN Reason: Pain, Severe (Pain Scale 7-10) Multivitamins/Vitamin C (Multivitamin Tablet) 1 tab PO DAILY [facility] Last Admin: 01/11/24 09:02 Dose: 1 tab Omeprazole (Omeprazole 20 Mg Capsule.Dr) 20 mg PO DAILY@0630 [facility] Last Admin: 01/11/24 06:23 Dose: 20 mg Ondansetron HCl (Ondansetron Hcl 4 Mg/2 Ml Vial) 4 mg IVPUSH Q8H PRN PRN Reason: Nausea and Vomiting Last Admin: 01/10/24 16:41 Dose: 4 mg Senna (Sennosides 8.6 Mg Tablet) 17.2 mg PO BEDTIME PRN PRN Reason: Constipation Sodium Chloride (0.9 % Sodium Chloride Flush 3 Ml Syringe) 3 ml IVFLUSH QSHIFT [facility] Last Admin: 01/11/24 08:59 Dose: Not Given Vitamin D (Cholecalciferol (Vitamin D3) 25 Mcg Tablet) 25 mcg PO BID [facility] Last Admin: 01/11/24 09:02 Dose: 25 mcg Zinc Oxide (Zinc Oxide (Triple Paste) 56.7 Gm Oint) 1 appl TOPICAL DAILY PRN PRN Reason: buttock Home Medications Medication Instructions Recorded Confirmed Last Taken Type atorvastatin 20 mg tablet 20 mg PO BEDTIME 08/15/20 01/10/24 01/09/24 History loratadine 10 mg tablet 10 mg PO DAILY 08/15/20 01/10/24 01/09/24 History omeprazole 20 mg capsule,delayed 20 mg PO DAILY 08/15/20 01/10/24 01/09/24 History release tramadol 50 mg tablet 100 mg PO TID 08/15/20 01/10/24 01/09/24 History clonazepam 2 mg tablet 2 mg PO BEDTIME PRN Restless Leg(S) 07/09/21 01/10/24 01/09/24 History cholecalciferol (vitamin D3) 25 25 mcg PO BID 08/16/21 01/10/24 01/09/24 History mcg (1,000 unit) tablet (Vitamin D3) multivitamin 1 tab PO DAILY 08/16/21 01/10/24 01/09/24 History alendronate 70 mg tablet 70 mg PO DELGADO 03/01/23 01/10/24 01/08/24 History aspirin 81 mg tablet,delayed 81 mg PO DAILY 03/01/23 01/10/24 01/09/24 History release (Adult Aspirin Regimen) levothyroxine 75 mcg tablet 75 mcg PO QAM 01/10/24 01/10/24 01/09/24 History sennosides 8.6 mg tablet (senna) 17.2 mg PO BEDTIME PRN Constipation 01/10/24 01/10/24 Unknown History zinc oxide 13 % topical cream 1 appl topical DAILY PRN buttock 01/10/24 01/10/24 Unknown History Physical Exam 2 Vital Signs: Vital Signs: Last Vital Signs Temp 97 F 01/11/24 06:46 Pulse 63 01/11/24 06:46 Resp 16 01/11/24 06:46 BP 141/63 H 01/11/24 06:46 Pulse Ox 95 01/11/24 06:46 O2 Del Method Room Air 01/11/24 06:46 BMI result Body Mass Index 33.8 Const: General: cooperative, comfortable, alert, awake and tired appearing Nutritional Appearance: overweight Orientation/consciousness: patient oriented x3 HEENT: Head: Yes normocephalic and Yes atraumatic Neck: Neck: Yes trachea midline, Yes supple and Yes no JVD Resp: Effort & Inspection: normal respiratory effort Auscultation: clear to auscultation bilaterally Cardio: Jugular venous distension: no JVD Palpation: normal PMI Rate: r egular rate Rhythm: regular rhythm Heart sounds: S1 normal heart sound present, S2 normal heart sound present, no click, no gallops and no murmurs GI: Inspection: Yes other (Soft bowel sounds with some tenderness in the periumbilical area) Skin: General skin exam: no rashes or lesions noted Neuro: General: patient oriented x3 and no focal motor deficits Extrem: General: Yes no clubbing, cyanosis or edema Objective Labs and Meds 01/11/24 05:53 01/11/24 05:53 Lab results: Laboratory Results - last 24 hr 01/11/24 05:53 WBC 5.2 RBC 3.52 L Hgb 11.3 L Hct 34.9 L MCV 99.1 H MCH 32.1 MCHC 32.4 RDW 14.6 Plt Count 153 L MPV 10.0 Immature Gran % (Auto) 0.4 Neut % (Auto) 75.1 H Lymph % (Auto) 9.2 L [place] % (Auto) 10.3 Eos % (Auto) 4.4 H Baso % (Auto) 0.6 Lymph # (Auto) 0.5 L [place] # (Auto) 0.5 Eos # (Auto) 0.2 Baso # (Auto) 0.0 Abs Immat Gran (auto) 0.02 Absolute Neuts (auto) 3.9 Absolute Nucleated RBC 0.000 Nucleated RBC % (auto) 0.0 Sodium 147 H Potassium 3.5 Chloride 113 H Carbon Dioxide 26 Anion Gap 12 BUN 14 Creatinine 0.88 Estim Creat Clear Calc 54.6 Estimated GFR > 60 Random Glucose 72 Calcium 8.5 D Imaging Radiologist's impression: Impressions Chest X-Ray 01/10/24 14:51 IMPRESSION: NG tube placed as described. Upper GI and Small Bowel X-Ray 01/10/24 20:00 IMPRESSION: Small bowel series examination demonstrating progression of contrast into the sigmoid colon, and relative decompression of proximal small bowel loops. NG tube in place in good position. Healing subacute fractures of the bilateral pubic rami, bilateral sacral alae, L4 and L5 vertebral bodies. Suspect a small left pleural effusion. The heart is mildly enlarged. Left atrial appendage occlusion device in place. See the body of the report for details. Assessment and Plan (1) Pre-operative cardiovascular examination: Status: Inactive Preoperative cardiovascular risk stratification in this elderly woman with frailty and prior history of systolic heart failure with biventricular ICD as well as paroxysmal atrial fibrillation. Clinically she is optimized from cardiac perspective with intermediate risk for perioperative cardiovascular morbidity mortality. Continue all her medications in the perioperative period. With rapid fluid changes. Attention to development of congestive heart failure syndrome. Can be treated with IV diuresis she developed some shortness of breath. In terms of her ICD, the defibrillator function can be deactivated by placing a magnet over the device. During that period of time she has to be continuously monitored on a color television console monitor. Once the magnitude remote her ICD function will return to baseline. Will sign of the case at this point time. Re-consult us if need be. Thank you for allowing me to partake in the care. Procedures Date of Service Date of Service: 01/11/24
[2024-01-11 15:05] VITALS: BP 148/67; PULSE 65; RESP 16; TEMP 36.6; O2SAT 97
--- NOTE | 2024-01-11 15:21 | PC.NURSE ---
NGT discontinued at 0830 this morning. Pt tolerating clear liquids without pain, n/v
--- NOTE | 2024-01-11 15:32 | MHC.CM.PN ---
IMM DELIVERED. PATIENT IS FROM HOME W/ GRANDDAUGHTER/HCP LISA. AMBULATES W/ WALKER, INDEPENDENT W/ ADLS. [facility] MOW M-F. PCP RADHA TA MD HCP ON FILE AND VERIFIED WAS AT [facility] FOR STR AUG 2023. HAS USED [facility] MULTIPLE TIMES FOR HOME PT. DP: GOAL IS HOME W/ FAMILY SUPPORT. OPEN TO HOME SERVICES IF INDICATED. NO PT EVAL ORDERED AT THIS TIME. CM WILL CONTINUE TO FOLLOW.
[2024-01-11 18:54] VITALS: BP 138/68; PULSE 67; RESP 18; TEMP 36.6; O2SAT 96
[2024-01-11] MEDS: Atorvastatin Calcium 20 MG TABLET PO (19:37)
[2024-01-11] MEDS: clonazePAM 1 MG TABLET 2 MG PO (21:42)
[2024-01-12] MEDS: Lactated Ringers 1,000 ML 80 ML IVCONT (01:25)
[2024-01-12 04:00] VITALS: BP 160/70; PULSE 61; RESP 16; TEMP 36; O2SAT 97
[2024-01-12] MEDS: Omeprazole 20 MG CAPSULE.DR PO (05:35)
[2024-01-12] MEDS: Levothyroxine Sodium 75 MCG TABLET PO (05:35)
[2024-01-12 07:24] VITALS: BP 163/73; PULSE 60; RESP 18; TEMP 36.2; O2SAT 97
--- NOTE | 2024-01-12 07:43 | P.PNGS_ITS ---
Subjective Subjective Date of Service: 01/12/24 Interval history: Feels significantly improved. Denies abd pain, nausea. Tolerating clear liquids and feels hungry. OOB to commode. Has had multiple liquid BMs but diarrhea slowing down. Physical Exam 2 Vital Signs: Vital Signs: Last Vital Signs Temp 97.1 F 01/12/24 07:24 Pulse 60 01/12/24 07:24 Resp 18 01/12/24 07:24 BP 163/73 H 01/12/24 07:24 Pulse Ox 97 01/12/24 07:24 O2 Del Method Room Air 01/12/24 07:24 BMI result Body Mass Index 33.8 Const: General: comfortable, no acute distress and alert O rientation/consciousness: patient oriented x3 Resp: Effort & Inspection: normal respiratory effort GI: Inspection: No distended and Yes visible herniation (soft) Palpation (GI): Soft to palpation, nontender and no guarding Skin: General skin exam: no rashes or lesions noted Neuro: General: patient oriented x3 Objective Data Active Medications Amiodarone HCl (Amiodarone Hcl 200 Mg Tablet) 100 mg PO DAILY [facility] Last Admin: 01/11/24 09:00 Dose: 100 mg Documented By: ALIZE Atorvastatin Calcium (Atorvastatin Calcium 20 Mg Tablet) 20 mg PO BEDTIME [facility] Last Admin: 01/11/24 19:37 Dose: 20 mg Documented By: RODNEY Clonazepam (Clonazepam 1 Mg Tablet) 2 mg PO BEDTIME PRN PRN Reason: Restless Leg(S) Last Admin: 01/11/24 21:42 Dose: 2 mg Documented By: RODNEY Furosemide (Furosemide 20 Mg Tablet) 20 mg PO DAILY [facility]; Protocol Last Admin: 01/11/24 09:01 Dose: 20 mg Documented By: ALIZE Acetaminophen (Ofirmev) 1,000 mg in 100 mls @ 400 mls/hr IV Q6H PRN PRN Reason: abdominal pain Last Infusion: 01/10/24 17:04 Dose: Infused Documented By: DANNIELLE Levothyroxine Sodium (Levothyroxine Sodium 75 Mcg Tablet) 75 mcg PO DAILY@0600 [facility] Last Admin: 01/12/24 05:35 Dose: 75 mcg Documented By: RODNEY Loratadine (Loratadine 10 Mg Tablet) 10 mg PO DAILY [facility] Last Admin: 01/11/24 09:02 Dose: 10 mg Documented By: ALIZE Morphine Sulfate (Morphine Sulfate 4 Mg/Ml Cartridge) 4 mg IVPUSH Q4H PRN; Protocol PRN Reason: Pain, Severe (Pain Scale 7-10) Multivitamins/Vitamin C (Multivitamin Tablet) 1 tab PO DAILY [facility] Last Admin: 01/11/24 09:02 Dose: 1 tab Documented By: ALIZE Omeprazole (Omeprazole 20 Mg Capsule.) 20 mg PO DAILY@0630 [facility] Last Admin: 01/12/24 05:35 Dose: 20 mg Documented By: COTEMA Ondansetron HCl (Ondansetron Hcl 4 Mg/2 Ml Vial) 4 mg IVPUSH Q8H PRN PRN Reason: Nausea and Vomiting Last Admin: 01/10/24 16:41 Dose: 4 mg Documented By: PARROWA Senna (Sennosides 8.6 Mg Tablet) 17.2 mg PO BEDTIME PRN PRN Reason: Constipation Sodium Chloride (0.9 % Sodium Chloride Flush 3 Ml Syringe) 3 ml IVFLUSH QSHIFT [facility] Last Admin: 01/11/24 23:11 Dose: Not Given Documented By: COTEMA Non-Admin Reason: IV Running Vitamin D (Cholecalciferol (Vitamin D3) 25 Mcg Tablet) 25 mcg PO BID [facility] Last Admin: 01/11/24 19:37 Dose: 25 mcg Documented By: COTEMA Zinc Oxide (Zinc Oxide (Triple Paste) 56.7 Gm Oint) 1 appl TOPICAL DAILY PRN PRN Reason: buttock Labs 01/11/24 05:53 01/11/24 05:53 Procedures Date of Service Date of Service: 01/12/24 Progress Note: A&P Assessment and plan (1) Hernia, ventral, with obstruction: Status: Acute Plan SBO appears to have resolved. Hernia remains soft, nontender. Will advance to solid diet. If tolerating, stable for dc to home today. Patient comfortable with plan. Time Spent With Patient Time: Total time managing care of this patient today ____ minutes. Quality Stroke Does the patient have a stroke diagnosis?: No VTE Prior VTE?: No VTE Risk Level:: Medical - moderate - high VTE Device Contraindication: N/A - Device Ordered VTE Drug Contraindication: N/A - Med Ordered
[2024-01-12] MEDS: Furosemide 20 MG TABLET PO (07:50)
[2024-01-12] MEDS: Multivitamin TABLET 1 TAB PO (07:50)
[2024-01-12] MEDS: Cholecalciferol (Vitamin D3) 25 MCG TABLET PO (07:50)
[2024-01-12] MEDS: 0.9 % Sodium Chloride Flush 3 ML SYRINGE IVFLUSH (07:51)
[2024-01-12] MEDS: Amiodarone HCL 200 MG TABLET 100 MG PO (07:51)
[2024-01-12] MEDS: Loratadine 10 MG TABLET PO (07:52)
--- NOTE | 2024-01-12 08:42 | HO.PM.IMPN ---
Subjective Subjective Date of Service: 01/12/24 Interval History: F/u on med management for HTN, CAD, PAF. On surgical service for ventral hernia, she is doing fairly well. She reports having diarrhea, no abd pain Physical Exam Vital Signs: Vital Signs: Last Vital Signs Temp 97.1 F 01/12/24 07:24 Pulse 60 01/12/24 07:24 Resp 18 01/12/24 07:24 BP 163/73 H 01/12/24 07:24 Pulse Ox 97 01/12/24 07:24 O2 Del Method Room Air 01/12/24 07:24 BMI result Body Mass Index 33.8 General: AO X 3, no acute distress Resp: CTA bilateral CVS: S1,S2,RRR GI: +BS, NT, no distention Skin: No rash Neuro: motor grossly intact Psych: appropriate affect Objective Data Active Medications Amiodarone HCl (Amiodarone Hcl 200 Mg Tablet) 100 mg PO DAILY [facility] Last Admin: 01/12/24 07:51 Dose: 100 mg Documented By: MAR Atorvastatin Calcium (Atorvastatin Calcium 20 Mg Tablet) 20 mg PO BEDTIME [facility] Last Admin: 01/11/24 19:37 Dose: 20 mg Documented By: RODNEY Clonazepam (Clonazepam 1 Mg Tablet) 2 mg PO BEDTIME PRN PRN Reason: Restless Leg(S) Last Admin: 01/11/24 21:42 Dose: 2 mg Documented By: RODNEY Furosemide (Furosemide 20 Mg Tablet) 20 mg PO DAILY [facility]; Protocol Last Admin: 01/12/24 07:50 Dose: 20 mg Documented By: MAR Acetaminophen ([facility]) 1,000 mg in 100 mls @ 400 mls/hr IV Q6H PRN PRN Reason: abdominal pain Last Infusion: 01/10/24 17:04 Dose: Infused Documented By: DANNIELLE Levothyroxine Sodium (Levothyroxine Sodium 75 Mcg Tablet) 75 mcg PO DAILY@0600 [facility] Last Admin: 01/12/24 05:35 Dose: 75 mcg Documented By: RODNEY Loratadine (Loratadine 10 Mg Tablet) 10 mg PO DAILY [facility] Last Admin: 01/12/24 07:52 Dose: 10 mg Documented By: MAR Morphine Sulfate (Morphine Sulfate 4 Mg/Ml Cartridge) 4 mg IVPUSH Q4H PRN; Protocol PRN Reason: Pain, Severe (Pain Scale 7-10) Multivitamins/Vitamin C (Multivitamin Tablet) 1 tab PO DAILY [facility] Last Admin: 01/12/24 07:50 Dose: 1 tab Documented By: MAR Omeprazole (Omeprazole 20 Mg Capsule.) 20 mg PO DAILY@0630 [facility] Last Admin: 01/12/24 05:35 Dose: 20 mg Documented By: RODNEY Ondansetron HCl (Ondansetron Hcl 4 Mg/2 Ml Vial) 4 mg IVPUSH Q8H PRN PRN Reason: Nausea and Vomiting Last Admin: 01/10/24 16:41 Dose: 4 mg Documented By: DANNIELLE Senna (Sennosides 8.6 Mg Tablet) 17.2 mg PO BEDTIME PRN PRN Reason: Constipation Sodium Chloride (0.9 % Sodium Chloride Flush 3 Ml Syringe) 3 ml IVFLUSH QSHIFT [facility] Last Admin: 01/12/24 07:51 Dose: 3 ml Documented By: MAR Vitamin D (Cholecalciferol (Vitamin D3) 25 Mcg Tablet) 25 mcg PO BID [facility] Last Admin: 01/12/24 07:50 Dose: 25 mcg Documented By: MAR Zinc Oxide (Zinc Oxide (Triple Paste) 56.7 Gm Oint) 1 appl TOPICAL DAILY PRN PRN Reason: buttock Labs 01/11/24 05:53 01/11/24 05:53 Assessment and Plan (1) Hernia, ventral, with obstruction: Status: Acute (2) HTN (hypertension): Status: Acute Plan 73 year old female with history of htn, hld, LBBB, cardiomyopathy, CAD, bi vicd in place, PAF s/p watchman device, prior ventral hernia admitted to general surgery with consult placed to hospitalist service for medical management. #Abd pain/recurrent ventral hernia/sbo, clinically is doing better, sbo resolved, ngt removed, and diet advnced, no plan for operation #HTN-BP --resume valsartan #HLD--continue Lipitor - #CAD/HFr EF (35-40%)/CM/HLD -resume carvedilol, valsartan and ASA #PAF--continue amio, ASA not on anticoagulation # start sub cut heparin or Lovenox if no plan for discharge today at discharge can discharge all home meds Quality Stroke Does the patient have a stroke diagnosis?: No VTE Prior VTE?: No VTE Risk Level:: Medical - moderate - high VTE Device Contraindication: N/A - Device Ordered VTE Drug Contraindication: N/A - Med Ordered
[2024-01-12] MEDS: carvediloL 12.5 MG TABLET PO (09:07)
[2024-01-12] MEDS: Valsartan 80 MG TABLET PO (09:07)
[2024-01-12] MEDS: Aspirin Enteric Coated 81 MG TABLET.DR PO (09:07)
--- NOTE | 2024-01-12 11:05 | PM.DS ---
DS: Providers Provider Date of Service: 01/12/24 Date of admission: 01/10/24 10:10 Date of discharge: 01/12/24 Primary care physician: Baljinder Blanchard MD Attending physician on admission: Ross [place] Consults: 01/10/24 10:13 Consult to Hospitalist Routine Comment: Consulting Provider: Hospitalist Reason For Exam: CHF with ICD, watchman device, PAF 01/10/24 15:20 Consult to Cardiology Routine Consulting Provider: [facility] Reason for consultation: pre op eval Attending physician on discharge: Ross [place] DS: Diagnosis Discharge Diagnosis (1) Hernia, ventral, with obstruction: Status: Acute (2) HTN (hypertension): Status: Acute DS: Summary Hospital Course Hospital Course: HPI AT ADMISSION: Marlin Correa is a 73 year old female with significant past medical history including hypertension, hyperlipidemia, left bundle branch block, CAD, cardiomyopathy, Bi VICD, paroxysmal AFib with Watchman device 02/20 and hx of prior ventral hernia with mesh repair with known recurrence and who presents with acute onset of vomiting after eating dinner last night. She was in her usual state of health and was able to tolerate her entire dinner but reports she developed nausea and vomiting with multiple episodes right after. She then developed severe pain at the hernia site and reports her hernia was larger and more firm then it usually is. She also notes constipation over the past 3-4 months and has been taking senna to help her move her bowels. She was passing flatus yesterday but stopped when the pain occurred. Due to the severity of the pain and the nausea/vomiting she presented to the ED for evaluation. Work up in the ED included CBC, BMP, LFTs which were WNL and CT scan abd/pelvis with IV/PO contrast showed a large defect in the right lower abdominal wall with dilated segment of small bowel within the defect with normal caliber distal small bowel exiting concerning for SBO. F/u AXR this morning was obtained however the contrast was too dilute to evaluate for SBO. Upon reassessment, her pain and nausea is slightly improved with analgesics. She has begun to pass flatus. Her hernia feels back to normal size but she does have persistent pain. HOSPITAL COURSE: Patient was admitted to the surgical service for further treatment of the abdominal pain, possible SBO. SBFT was ordered to further assess for complete SBO. Cont NPO status, gentle IVF. NGT was inserted for persistent nausea and contrast administration. Hospitalist consult obtained for management of medical comorbidities, cardiology consult for pre op assessment. Her home medications were resumed. Small bowel series examination demonstrated progression of contrast into the sigmoid colon and relative decompression of proximal small bowel loops. Her NGT had scanty output. She had resolution of her abdominal pain and nausea and began to pass flatus and had numerous liquid BMs. Her abdomen was benign and soft, NTND. Her NGT was therefore discontinued and she was started on clear liquids. She was ambulated. The following day she was tolerating this and was advanced to solid diet. She was reassessed later in the day and was tolerating solids and had no symptoms. She was ambulating without difficulty and continued to have good GI function. Her abdomen remained benign. She felt ready for discharge. She was discharged to home on 01/12/24 in stable condition. She is to follow up with her PCP. Status at Discharge Functional status at discharge: uses cane/walker Overall status at discharge: patient is back to baseline Time Attestation Discharge Coordination Time (in mins): 35 Quality: Safe Use of Opioids Does Pt have an Active Cancer Diagnosis on the Problem List?: No Quality: Stroke Does the patient have a stroke diagnosis?: No Physical Exam Vital Signs: Vital Signs: Last Vital Signs Temp 97.1 F 01/12/24 07:24 Pulse 60 01/12/24 07:24 Resp 18 01/12/24 07:24 BP 163/73 H 01/12/24 07:24 Pulse Ox 97 01/12/24 07:24 O2 Del Method Room Air 01/12/24 07:24 BMI result Body Mass Index 33.8 Const: General: comfortable, no acute distress and alert Orientation/consciousness: patient oriented x3 Resp: Effort & Inspection: normal respiratory effort GI: Inspection: No distended Palpation (GI): Soft to palpation and nontender Skin: General skin exam: no rashes or lesions noted Neuro: General: patient oriented x3 and moves all extremities Discharge Plan Discharge Anticipated Discharge Date/Time: 01/12/24 12:44 Patient Disposition: Home, Self-Care Discharge Diagnosis: recurrent incarcerated ventral hernia, SBO Referrals: Baljinder Blanchard MD [Primary Care Provider] - 1 Week Discharge Medications: Continued (DME) compression socks, medium Misc See Rx Instructions .Route Qty: 2 0RF Rx Instructions: As directed valsartan 160 mg tablet 80 mg PO DAILY 90 Days Qty: 45 3RF amiodarone 200 mg tablet 100 mg PO DAILY Qty: 45 3RF carvedilol 12.5 mg tablet 12.5 mg PO BID Qty: 180 3RF furosemide 20 mg tablet 20 mg PO DAILY Qty: 90 2RF Rx Instructions: take 2 when having swelling multivitamin Tablet 1 tab PO DAILY cholecalciferol (vitamin D3) [Vitamin D3] 25 mcg (1,000 unit) Tablet 25 mcg PO BID acetaminophen 325 mg capsule 650 mg PO QID PRN (Reason: pain) 30 Days Qty: 240 0RF levothyroxine 75 mcg tablet 75 mcg PO QAM sennosides [senna] 8.6 mg Tablet 17.2 mg PO BEDTIME PRN (Reason: Constipation) zinc oxide 13 % Cream 1 appl TOPICAL DAILY PRN (Reason: buttock) omeprazole 20 mg capsule,delayed release(DR/EC) 20 mg PO DAILY loratadine 10 mg tablet 10 mg PO DAILY tramadol 50 mg tablet 100 mg PO TID atorvastatin 20 mg tablet 20 mg PO BEDTIME clonazepam 2 mg tablet 2 mg PO BEDTIME PRN (Reason: Restless Leg(S)) alendronate 70 mg tablet 70 mg PO DELGADO Rx Instructions: tuesday aspirin [Adult Aspirin Regimen] 81 mg tablet,delayed release (DR/EC) 81 mg PO DAILY Discharge Orders: Discharge Order (Routine); Ordered 01/12/24 Ordered By: Gail Najera Diet: Advance to usual diet Activity on Discharge: As tolerated Stand Alone Forms: Patient Portal Discharge page Care Plan Goals: Return to baseline health and resume normal activities as tolerated. Health Concerns: CHF, a fib, Bi ICD, watchman device hx of incarcerated recurrent ventral hernia, SBO Plan of Treatment: SBFT, supportive management Assessment: Improved Discharge Date/Time: 01/12/24 12:35
--- NOTE | 2024-01-12 11:16 | MHC.CM.PN ---
DP: PT HAS BEEN MEDICALLY CLEARED FOR DC HOME, NO SERVICES. GRANDDAUGHTER WILL TRANSPORT
== END 2024-01-12 12:35 | disposition home or self-care (01) | DRG 394 ==
LOC: HO.ED 10:56 → HO.EDOVER 11:19 → HO.S3 13:35
PROVIDERS: Student in an Organized Health Care Education/Training Program; Admitting Provider Physician Assistant Surgical; Emergency Provider Emergency Medicine Emergency Medical Services; PCP Family Medicine; Visit Provider Physician Assistant Surgical
DX: K43.0 Incisional hernia with obstruction, without gangrene (principal); I42.9 Cardiomyopathy, unspecified; I50.22 Chronic systolic (congestive) heart failure; I25.10 Atherosclerotic heart disease of native coronary artery without angina pectoris; I11.0 Hypertensive heart disease with heart failure; E78.5 Hyperlipidemia, unspecified; I48.0 Paroxysmal atrial fibrillation; J45.20 Mild intermittent asthma, uncomplicated; Z95.810 Presence of automatic (implantable) cardiac defibrillator; Z79.82 Long term (current) use of aspirin; Z79.890 Hormone replacement therapy; Z79.899 Other long term (current) drug therapy
CPT/HCPCS: 36415; 71045; 74018; 74177; 74250; 80048; 80053; 83690; 85025; 85610; 93005; 99285; J0131; J2270; J2405; J3010; J7120; Q9967

== ENCOUNTER → 2024-01-10 01:20 | Outpatient (BNV) | payer MEDICARE, SELFPAY | PROVIDERS: Admitting Provider Physician Assistant Surgical; Emergency Provider Emergency Medicine Emergency Medical Services; PCP Family Medicine; Visit Provider Internal Medicine Cardiovascular Disease | DX: R94.31 Abnormal electrocardiogram [ECG] [EKG] (principal) | CPT/HCPCS: 93010 ==

== ENCOUNTER → 2024-01-10 01:48 | Outpatient (BNV) | payer MEDICARE, SELFPAY | PROVIDERS: Emergency Provider Emergency Medicine Emergency Medical Services; PCP Family Medicine; Visit Provider Physician Assistant Surgical | DX: K43.2 Incisional hernia without obstruction or gangrene (principal); R10.9 Unspecified abdominal pain | CPT/HCPCS: 99222; 99232; 99239 ==

== ENCOUNTER 2024-01-10 10:10 | Outpatient (BNV) | payer MEDICARE, SELFPAY | END 2024-01-10 15:30 | PROVIDERS: Admitting Provider Physician Assistant Surgical; Emergency Provider Emergency Medicine Emergency Medical Services; PCP Family Medicine; Visit Provider Radiology Diagnostic Radiology | DX: K56.609 Unspecified intestinal obstruction, unspecified as to partial versus complete obstruction (principal) | CPT/HCPCS: 74250 ==

== ENCOUNTER → 2024-01-10 10:10 | Outpatient (BNV) | payer MEDICARE, SELFPAY | PROVIDERS: Admitting Provider Physician Assistant Surgical; Emergency Provider Emergency Medicine Emergency Medical Services; PCP Family Medicine; Visit Provider Physician Assistant | DX: K43.6 Other and unspecified ventral hernia with obstruction, without gangrene (principal); I10 Essential (primary) hypertension | CPT/HCPCS: 99222; 99232 ==

== ENCOUNTER → 2024-01-10 10:10 | Outpatient (BNV) | payer MEDICARE, SELFPAY | PROVIDERS: Admitting Provider Physician Assistant Surgical; Emergency Provider Emergency Medicine Emergency Medical Services; PCP Family Medicine; Visit Provider Internal Medicine Cardiovascular Disease | DX: Z01.810 Encounter for preprocedural cardiovascular examination (principal) | CPT/HCPCS: 99222 ==

== ENCOUNTER → 2024-01-27 13:16 | Outpatient (REF) | payer MEDICARE, MEDICAID, SELFPAY ==
[2024-01-27 14:44] LABS: Hematocrit 40.2 % (37.0-47.0); Hemoglobin 12.9 g/dl (12.0-16.0); Mean Corpuscular HGB Conc 32.1 g/dl (31.0-35.0); Mean Corpuscular Hemoglobin 31.5 pg (27.0-33.0); Mean Corpuscular Volume 98.3 fL (80.0-98.0); Mean Platelet Volume 10.4 fL (9.4-12.3); Platelet Count 204 X10*3/uL (160-400); Red Blood Count 4.09 X10*6/uL (4.20-5.50); White Blood Count 6.5 X10*3/uL (4.8-10.8)
--- NOTE | 2024-01-27 14:54 | CA_ITS ---
Transthoracic Echocardiogram Patient (Last, First, Middle): Marlin Correa J Gender: Female Date of : 1950 Age: 73 Procedure Date: 01/27/2024 Procedure Type: Transthoracic Echocardiogram Location: OP Height: 157.48 cm Weight: 76.66 kg BSA: 1.78 m2 Heart Rate: bpm BP: 122 / 70 mmHg Aerial Gunner: LYDIA Referring MD: Marvin Swanson MD Symptoms: I50.22 - Chronic systolic (congestive) heart failure Study Quality: Good ECG Rhythm: Sinus Conclusions: - Normal left ventricular cavity size. There is mildly increased left ventricular wall thickness. The left ventricular systolic function is low normal. The visually estimated ejection fraction is between 50-55%. - The basal inferior segment is akinetic. - There is mildly decreased right ventricular systolic function. - There are no definitive echocardiographic findings of tamponade physiology. Small to moderate circumferential pericardial effusion, more prominent posteriorly. Findings Left Ventricle Normal left ventricular cavity size. There is mildly increased left ventricular wall thickness. The left ventricular systolic function is low normal. The visually estimated ejection fraction is between 50-55%. There is evidence of regional wall motion abnormalities. Abnormal diastolic function is noted. Spectral Doppler is indicative of an impaired relaxation filling pattern. E/E prime ratio is between 8 and 15 consistent with indeterminate filling pressures. Wall Motion Rest Echo Findings The basal inferior segment is akinetic. Right Ventricle Normal right ventricular cavity size. There is mildly decreased right ventricular systolic function. There is a pacemaker wire seen in the right ventricle. Atria The left atrium is mildly dilated. Aortic Valve Normal aortic valve structure and function. There is no aortic valve stenosis. There is no aortic valve regurgitation. Mitral Valve Normal mitral valve structure and function. There is trace mitral valve regurgitation. There is no mitral valve stenosis. Pulmonic Valve The pulmonic valve is likely normal. Tricuspid Valve The tricuspid valve was not well visualized. There is trace tricuspid valve regurgitation. Normal right atrial pressure. There is no evidence of pulmonary hypertension. Great Vessels There is mild dilatation of the ascending aorta measuring 3.40 cm. The visualized portions of the pulmonary artery and branches are normal. Venous The inferior vena cava is normal in size and collapses greater than 50% with inspiration. Pericardium/Pleural There are no definitive echocardiographic findings of tamponade physiology. Small to moderate circumferential pericardial effusion, more prominent posteriorly. Prior Study Comparison Changes noted compared to prior study dated: 07/08/2022. Low normal LVEF 50 55%, basal inferior akinesis, Mild RV dysfunction. Measurements 2D Linear Measurements IVSd: 1.06 0.6-0.9/0.6-1.0 cm LVIDd: 3.45 3.9-5.3/4.2-5.9 cm LVIDd Index: 1.94 2.4-3.2/2.2-3.1 cm/m2 LVIDs: 2.66 2.0-3.6 cm LVPWd: 1.11 0.7-1.1 cm Ao Root: 2.40 2.1-3.5 cm LA Diam: 3.70 2.7-3.8/3.0-4.0 cm LAIDs Index: 2.08 1.5-2.3 cm/m2 LV Mass: 141.90 67-162/88-224 g LV Mass Index: 79.72 43-95/49-115 g/m2 LVOT Diam: 1.90 3.0+(-)1.3 cm 2D Systolic Function EF 4C: 43.90 >55% EF 2C: 42.60 >55% EF BiP: 44.10 >55% Mitral Valve MV Pk E: 0.60 MV PK A: 0.81 MV Decel Time: 225.00 E/A: 0.70 E'Lateral: 4.46 E'Medial: 5.33 E/E' Med: 11.30 E/E' Lat: 13.50 PHT: 66.00 MVA PHT: 3.33 Decel [place]: 2.69 Aortic Valve AoV Pk Kyrie: 1.60 AoV Mn Kyrie: 0.98 AoV VTI: 0.37 AoV Pk Grad: 10.00 Aov Mn Grad: 4.00 RADHA Cont.VTI: 1.29 LVOT LVOT Pk Kyrie: 0.81 LVOT Mn Kyrie: 0.42 LVOT VTI: 0.17 LVOT Pk Grad: 3.00 LVOT Mn Grad: 1.00 LVOT Diam: 1.90 LVOT Area: 2.84 Diastolic Function MV Pk E: 0.60 MV Pk A: 0.81 E/A: 0.70 E'Medial: 5.33 E/E' Med: 11.30 E' Laterial: 4.46 E/E' Lat: 13.50 Right Ventricle TAPSE (mm): 17.00 TVS' Kyrie: 7.00 Tricuspid Valve TR Pk Kyrie: 2.11 TR Pk Grad: 18.00 RA Press: 3.00 RVSP: 21.00 Great Vessels Aorta Ao Root-2D: 2.40 2.0-3.7 cm Ao Asc: 3.40 2.1-3.4 cm Pulmonary Valve PV Pk Kyrie: 0.82 Peak PV Grad: 3.00 Updated in Other Vendor System with Status of Final Tano Knight MD electronically signed on 01/29/2024 11:50:23 AM with status of Final
[2024-01-27 15:37] LABS: Alanine Aminotransferase 17 U/L (0-31); Alkaline Phosphatase 143 U/L (39-117); Anion Gap 13 (12-20); Aspartate Amino Transferase 21 U/L (5-31); Bilirubin Direct 0.2 mg/dL (0.0-0.5); Bilirubin Total 0.5 mg/dL (0.0-1.0); Blood Urea Nitrogen 25 mg/dL (9-16); Calcium 9.5 mg/dL (8.4-10.2); Carbon Dioxide 29 mmol/L (22-29); Chloride 102 mmol/L (96-108); Estimated Glomerular Filt Rate 45; Glucose Random 84 mg/dL (60-115); Potassium 4.2 mmol/L (3.3-5.1); Sodium 140 mmol/L (135-145); Total Protein 7.4 g/dL (6.5-8.0)
[2024-01-27 15:43] LABS: B Type Natriuretic Peptide 63 pg/mL (<100)
[2024-01-27 15:52] LABS: TSH reflex Free T4 3.26 uIU/mL (0.32-4.0)
== END ==
LOC: HO.CARD 13:16
PROVIDERS: PCP Family Medicine; Visit Provider Internal Medicine Cardiovascular Disease
DX: I50.22 Chronic systolic (congestive) heart failure (principal); I48.0 Paroxysmal atrial fibrillation
CPT/HCPCS: 36415; 80048; 80076; 83880; 84443; 85027; 93306

== ENCOUNTER → 2024-01-27 14:54 | Outpatient (BNV) | payer MEDICARE, SELFPAY | PROVIDERS: PCP Family Medicine; Visit Provider Internal Medicine Cardiovascular Disease | DX: I50.22 Chronic systolic (congestive) heart failure (principal) | CPT/HCPCS: 93306 ==

== ENCOUNTER → 2024-02-04 23:59 | Outpatient (BNV) | payer MEDICARE, SELFPAY ==
--- NOTE | 2024-02-07 13:57 | MHC.OFFVIS ---
Intake Intake Visit Reasons: remote HF monitoring- [employer] Allergies levofloxacin [From LEVAQUIN] Allergy (Intermediate, Verified 01/10/24 00:42) RASH Darvocet-N 50 Allergy (Mild, Uncoded 01/10/24 00:42) hives Sulfacet-R Allergy (Unknown, Uncoded 01/10/24 00:42) gi PFSH Medical History (Updated 01/11/24 @ 10:29 by Marvin Swanson MD) Pre-operative cardiovascular examination History of uterine cancer Mild intermittent asthma Osteoarthritis of left hip Cardiomyopathy CAD (coronary artery disease) HTN (hypertension) Biventricular ICD (implantable cardioverter-defibrillator) in place (~04/2020) Paroxysmal atrial fibrillation LBBB (left bundle branch block) Chronic systolic heart failure Surgical History Hx of hysterectomy History of total left hip replacement Hx of hernia repair History of permanent cardiac pacemaker placement Family History Father Cancer Mother No problems noted. 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 Heart failure parameters are stable [id number] Cardiac Device Interrogation, cardio physiologic monitor Procedure code (CPT) selection complete Assessment & Plan Assessment & Plan (1) Biventricular ICD (implantable cardioverter-defibrillator) in place: Onset Date: ~04/2020 Comment: Medtr[employer] Code(s): Z95.810 - Presence of automatic (implantable) cardiac defibrillator Plan: See above Coding Level of Care Code Procedure Only Diagnoses Biventricular ICD (implantable cardioverter-defibrillator) in place Z95.810 CPT Codes Cardiac Device Check - Cardiac Device 15: [id number] Cardiac Device Interrogation, cardio physiologic monitor ([id number])
== END ==
PROVIDERS: PCP Family Medicine; Visit Provider Internal Medicine Cardiovascular Disease
DX: Z45.02 Encounter for adjustment and management of automatic implantable cardiac defibrillator (principal)
CPT/HCPCS: 93297

== ENCOUNTER → 2024-03-06 23:59 | Outpatient (BNV) | payer MEDICARE, SELFPAY ==
--- NOTE | 2024-03-07 10:14 | MHC.OFFVIS ---
Intake Visit Reasons: REmote ICD check- [employer] Allergies levofloxacin [From LEVAQUIN] Allergy (Intermediate, Verified 01/10/24 00:42) RASH Darvocet-N 50 Allergy (Mild, Uncoded 01/10/24 00:42) hives Sulfacet-R Allergy (Unknown, Uncoded 01/10/24 00:42) gi PFSH Medical History (Updated 01/11/24 @ 10:29 by Marvin Swanson MD) Pre-operative cardiovascular examination History of uterine cancer Mild intermittent asthma Osteoarthritis of left hip Cardiomyopathy CAD (coronary artery disease) HTN (hypertension) Biventricular ICD (implantable cardioverter-defibrillator) in place (~04/2020) Paroxysmal atrial fibrillation LBBB (left bundle branch block) Chronic systolic heart failure Surgical History Hx of hysterectomy History of total left hip replacement Hx of hernia repair History of permanent cardiac pacemaker placement Family History Father Cancer Mother No problems noted. 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 ICD function is adequate. Patient activity report notes no physical activity. Will follow-up with patient [id number] Cardiac Interrogation, implant defibrillator w/interim Procedure code (CPT) selection complete Assessment & Plan Assessment & Plan (1) Biventricular ICD (implantable cardioverter-defibrillator) in place: Onset Date: ~04/2020 Comment: [employer] Code(s): Z95.810 - Presence of automatic (implantable) cardiac defibrillator Category: Medical Plan: See above Coding Level of Care Code Procedure Only Diagnoses Biventricular ICD (implantable cardioverter-defibrillator) in place Z95.810 CPT Codes Cardiac Device Check - Cardiac Device 13: [id number] Cardiac Interrogation, implant defibrillator w/interim ([id number])
== END ==
PROVIDERS: PCP Family Medicine; Visit Provider Internal Medicine Cardiovascular Disease
DX: Z45.02 Encounter for adjustment and management of automatic implantable cardiac defibrillator (principal)
CPT/HCPCS: 93295

== ENCOUNTER → 2024-03-06 23:59 | Outpatient (BNV) | payer MEDICARE, SELFPAY ==
--- NOTE | 2024-03-07 10:15 | MHC.OFFVIS ---
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 Allergies levofloxacin [From LEVAQUIN] Allergy (Intermediate, Verified 01/10/24 00:42) RASH Darvocet-N 50 Allergy (Mild, Uncoded 01/10/24 00:42) hives Sulfacet-R Allergy (Unknown, Uncoded 01/10/24 00:42) gi PFSH Medical History (Updated 01/11/24 @ 10:29 by Marvin Swanson MD) Pre-operative cardiovascular examination History of uterine cancer Mild intermittent asthma Osteoarthritis of left hip Cardiomyopathy CAD (coronary artery disease) HTN (hypertension) Biventricular ICD (implantable cardioverter-defibrillator) in place (~04/2020) Paroxysmal atrial fibrillation LBBB (left bundle branch block) Chronic systolic heart failure Surgical History Hx of hysterectomy History of total left hip replacement Hx of hernia repair History of permanent cardiac pacemaker placement Family History Father Cancer Mother No problems noted. 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 Heart failure parameters are within normal limits [id number] Cardiac Device Interrogation, cardio physiologic monitor Procedure code (CPT) selection complete Assessment & Plan Assessment & Plan (1) Biventricular ICD (implantable cardioverter-defibrillator) in place: Onset Date: ~04/2020 Comment: [employer] Code(s): Z95.810 - Presence of automatic (implantable) cardiac defibrillator Category: Medical Plan: See above Coding Level of Care Code Procedure Only Diagnoses Biventricular ICD (implantable cardioverter-defibrillator) in place Z95.810 CPT Codes Cardiac Device Check - Cardiac Device 15: [id number] Cardiac Device Interrogation, cardio physiologic monitor ([id number])
== END ==
PROVIDERS: PCP Family Medicine; Visit Provider Internal Medicine Cardiovascular Disease
DX: Z45.02 Encounter for adjustment and management of automatic implantable cardiac defibrillator (principal)
CPT/HCPCS: 93297

== ENCOUNTER 2024-03-12 18:57 | Emergency (ER) | payer MEDICARE, MEDICAID, SELFPAY ==
--- NOTE | ~2024-03-12 | CT_ITS ---
EXAMINATION: CT ABDOMEN AND PELVIS WITHOUT CONTRAST CLINICAL INFORMATION: Status post manual reduction of ventral hernia COMPARISON: CT abdomen from 01/10/2024 TECHNIQUE: Multidetector volumetric imaging was performed from the superior aspect of the liver through the pubic symphysis. Sagittal and coronal reformatted images were obtained on the technologist's workstation. This CT examination was performed using dose optimization techniques as appropriate, variously including the following: *Automated exposure control *Adjustment of mA and/or kV according to patient size (this includes techniques or standardized protocols for targeted exams where dose is matched to indication/reason for exam; i.e. extremities or head) *Use of iterative reconstruction technique DLP: 984 mGy-cm FINDINGS: LUNG BASES: Bibasilar atelectasis versus scarring. No pneumothorax. Valvular replacement. Coronary artery calcifications. Partially visualized pacer leads. Elevation the right hemidiaphragm. LIVER, GALLBLADDER, AND BILIARY TREE: The liver is normal in size, shape, and attenuation. No focal hepatic lesion or biliary ductal dilatation is present. The gallbladder is surgically absent. PANCREAS: Atrophic appearance of the pancreas. SPLEEN: Unremarkable. ADRENAL GLANDS: Unremarkable. KIDNEYS AND URETERS: The kidneys are normal in size, shape, and attenuation. No hydronephrosis, hydroureter, or calculi seen. No perinephric stranding. BLADDER: Unremarkable. GASTROINTESTINAL TRACT AND ABDOMINAL WALL: Redemonstrated right mid to lower abdominal wall ventral hernia containing loops of mildly prominent though nonobstructed small bowel. Hernia measures approximately 4.0 cm at its opening. Colonic diverticulosis without acute diverticulitis. The small and large bowel are unremarkable. The appendix is not definitively visualized. LYMPH NODES: No enlarged lymph nodes per size criteria. VASCULAR: Abdominal aorta is nonaneurysmal. PELVIC VISCERA: Limited evaluation of the uterus secondary to streak artifact at this level. OSSEOUS STRUCTURES: Left hip arthroplasty with streak artifact. Severe osteopenia. Redemonstrated compression deformity of L5. Multilevel degenerative changes of the thoracolumbar and lumbosacral spine. CT/CT abdomen pelvis wo IV con IMPRESSION: 1. Redemonstrated right mid to lower abdominal wall ventral hernia containing loops of mildly prominent though nonobstructed small bowel. Hernia measures approximately 4.0 cm at its opening. 2. Colonic diverticulosis without acute diverticulitis. 3. Severe osteopenia with chronic compression deformity of L5.
--- NOTE | 2024-03-12 19:12 | ECG_ITS ---
Test Reason : CHEST PAIN Blood Pressure : / mmHG Vent. Rate : 065 BPM Atrial Rate : 065 BPM P-R Int : 178 ms QRS Dur : 142 ms QT Int : 514 ms P-R-T Axes : 078 -67 072 degrees QTc Int : 534 ms Atrial-sensed ventricular-paced rhythm Abnormal ECG When compared with ECG of 10-JAN-2024 01:43, Vent. rate has decreased BY 62 BPM Referred By: Generic ED Physician Electronically Signed By:RICK DELGADO MD
[2024-03-12 19:14] VITALS: BP 158/90; BP 173/77; PULSE 12; PULSE 78; RESP 18; TEMP 36.6; O2SAT 94; O2SAT 96; BMI 32.9
--- NOTE | 2024-03-12 19:31 | ED_ITS ---
HPI - Abdominal Pain General Chief Complaint: Abdominal Pain Stated Complaint: Abdominal pain from existing hernia Time Seen by Provider: 03/12/24 19:30 Source: patient Mode of arrival: EMS Limitations: no limitations History of Present Illness HPI narrative: Patient's history of recurrent ventral hernia with history of partial obstruction in 01/21 at mesh placed in the past comes here for increased pain and size in the hernia area for last 2 hours with nausea no vomiting. Since discharge in 01/21 patient has been having all with ventral hernia without significant pain and plan to follow up surgery as outpatient patient had normal bowel movement earlier today no fever no chills Related Data Home Medications ?Medication ?Instructions ?Recorded ?Confirmed atorvastatin 20 mg tablet 20 mg PO BEDTIME 08/15/20 01/10/24 loratadine 10 mg tablet 10 mg PO DAILY 08/15/20 01/10/24 omeprazole 20 mg capsule,delayed 20 mg PO DAILY 08/15/20 01/10/24 release tramadol 50 mg tablet 100 mg PO TID 08/15/20 01/10/24 clonazepam 2 mg tablet 2 mg PO BEDTIME PRN Restless Leg(S) 07/09/21 01/10/24 cholecalciferol (vitamin D3) 25 25 mcg PO BID 08/16/21 01/10/24 mcg (1,000 unit) tablet (Vitamin D3) multivitamin 1 tab PO DAILY 08/16/21 01/10/24 alendronate 70 mg tablet 70 mg PO DELGADO 03/01/23 01/10/24 aspirin 81 mg tablet,delayed 81 mg PO DAILY 03/01/23 01/10/24 release (Adult Aspirin Regimen) levothyroxine 75 mcg tablet 75 mcg PO QAM 01/10/24 01/10/24 sennosides 8.6 mg tablet (senna) 17.2 mg PO BEDTIME PRN Constipation 01/10/24 01/10/24 zinc oxide 13 % topical cream 1 appl topical DAILY PRN buttock 01/10/24 01/10/24 Previous Rx's ?Medication ?Instructions ?Recorded acetaminophen 325 mg capsule 650 mg (2 x 325 mg) PO QID PRN 10/07/21 pain 30 days #240 caps compression socks, medium #2 ea 03/29/23 valsartan 160 mg tablet 80 mg (1/2 x 160 mg) PO DAILY 90 09/20/23 days #45 tabs amiodarone 200 mg tablet 100 mg (1/2 x 200 mg) PO DAILY #45 10/19/23 tabs carvedilol 12.5 mg tablet 12.5 mg PO BID #180 tabs 10/19/23 furosemide 20 mg tablet 20 mg PO DAILY Edema #90 tabs 12/16/23 Allergies Allergy/AdvReac Type Severity Reaction Status Date / Time levofloxacin [From LEVAQUIN] Allergy Intermediate RASH Verified 03/12/24 19:18 Darvocet-N 50 Allergy Mild hives Uncoded 03/12/24 19:18 Sulfacet-R Allergy Unknown gi Uncoded 03/12/24 19:18 Review of Systems Review of Systems Yes all other systems are reviewed and are negative [facility] Past Medical History Medical History Pre-operative cardiovascular examination History of uterine cancer Mild intermittent asthma Osteoarthritis of left hip Cardiomyopathy CAD (coronary artery disease) HTN (hypertension) Biventricular ICD (implantable cardioverter-defibrillator) in place (~04/2020) Paroxysmal atrial fibrillation LBBB (left bundle branch block) Chronic systolic heart failure Surgical History Hx of hysterectomy History of total left hip replacement Hx of hernia repair History of permanent cardiac pacemaker placement Family History Family History Father Cancer Mother No problems noted. Social History Social History Household Members: Other Household Members Other:: granddaughter Housing: House Do you presently have visiting nurse or other home services: Yes Alcohol intake: never Patient Tobacco Use Status: Never used Tobacco Smoked in Last 30 Days: No Second Hand Smoke Exposure: No Use of substances other than those prescribed or required for medical reasons: No Advance Directives: Yes Advance Directives on File: Yes Advance Directives Date on File: 10/08/21 service: No Current occupational status: retired Current occupation: rt handed Physical Exam ED Vital Signs: Vital Signs - 24 hr 03/12/24 19:14 03/12/24 19:53 03/12/24 20:06 Temperature 97.9 F Pulse Rate 12 L 63 Respiratory Rate 18 14 16 Blood Pressure 173/77 H 159/73 H Pulse Oximetry 94 97 Oxygen Delivery Method Room Air Room Air 03/12/24 22:20 Temperature 98.2 F Pulse Rate 60 Respiratory Rate 13 Blood Pressure 129/47 L Pulse Oximetry 95 Oxygen Delivery Method Room Air BMI result Body Mass Index 32.9 Appearance: Alert. Oriented X3. In moderate distress Eyes: No pallor or icterus ENT: Pharynx normal. Oral Mucosa moist Neck: Normal inspection. Neck supple. CVS: Normal heart rate and rhythm. Pulses normal. Respiratory: No respiratory distress. Equal air entry bilateral, no wheezing/rales/rhonchi Abdomen: Soft large ventral hernia tenderness Bowel sounds are present, no mass palpable, no CVA tenderness Skin: Skin warm and dry. Normal skin color. Normal skin turgor. Extremities: No lower extremity edema. No calf tenderness Neuro: Oriented X 3. No motor deficit. Medical Decision Making Medical Decision Making [facility] Narrative: Patient with large ventral hernia for several years status post surgery x2 comes here with increased pain and swelling of the hernia area which was manually reduced patient felt much better after reduction no pain at this time. Case discussed Dr. Sin surgeon will follow-up as outpatient CT scan showed large hernia without any bowel obstruction Differential Diagnosis Differential Diagnoses: The differential diagnosis associated with the presentation includes Incarcerated hernia/small-bowel obstruction Admission/Observation Consideration of admission/observation: Escalation of care including admission/observation considered Consult Healthcare Provider Management of the patient was discussed with: Glued Wood Tester Dr. Sin surgeon Lab Data [facility] Lab Attestation statement: I reviewed the patient's lab results. 03/12/24 19:39 03/12/24 19:39 Labs: Lab Results 03/12/24 Range/Units 19:39 WBC 8.9 (4.8-10.8) X10*3/uL RBC 3.97 L (4.20-5.50) X10*6/uL Hgb 12.8 (12.0-16.0) g/dl Hct 38.6 (37.0-47.0) % MCV 97.2 (80.0-98.0) fL MCH 32.2 (27.0-33.0) pg MCHC 33.2 (31.0-35.0) g/dl RDW 14.0 (11.0-16.0) % Plt Count 167 (160-400) X10*3/uL MPV 10.1 (9.4-12.3) fL Immature Gran % (Auto) 0.3 (0.0-0.4) % Neut % (Auto) 82.7 H (45-73) % Lymph % (Auto) 8.2 L (20-40) % [place] % (Auto) 6.4 (2-11) % Eos % (Auto) 1.7 (0-4) % Baso % (Auto) 0.7 (0-2) % Lymph # (Auto) 0.7 L (1.2-4.9) X10*3/uL [place] # (Auto) 0.6 (0.1-1.2) X10*3/uL Eos # (Auto) 0.2 (0.0-0.4) X10*3/uL Baso # (Auto) 0.1 (0.0-0.2) X10*3/uL Abs Immat Gran (auto) 0.03 (0.00-0.03) X10*3/uL Absolute Neuts (auto) 7.3 (2.0-8.3) x10*3/uL Absolute Nucleated RBC 0.000 (0.0-0.012) X10*3/uL Nucleated RBC % (auto) 0.0 (0.0-0.2) /100WBC APTT 29.3 (26.0-36.8) SEC Sodium 139 (135-145) mmol/L Potassium 4.6 (3.3-5.1) mmol/L Chloride 102 (96-108) mmol/L Carbon Dioxide 24 (22-29) mmol/L Anion Gap 18 (12-20) BUN 22 H (9-16) mg/dL Creatinine 1.12 (0.5-1.4) mg/dL Estim Creat Clear Calc 43.6 Estimated GFR 48 Random Glucose 146 H (60-115) mg/dL Calcium 9.2 (8.4-10.2) mg/dL Total Bilirubin 0.6 (0.0-1.0) mg/dL Direct Bilirubin 0.2 (0.0-0.5) mg/dL AST 27 (5-31) U/L ALT 15 (0-31) U/L Alkaline Phosphatase 109 (39-117) U/L Troponin I High Sens 5.0 (<3.5-17.0) ng/L Total Protein 7.0 (6.5-8.0) g/dL Albumin 3.8 (3.5-5.0) g/dL Lipase 11 (8-78) U/L Independent Interpretation I performed an independent interpretation of an: CT Scan Radiology Impression Discussion of test interpretation with radiology: I have reviewed the radiologist's reading. Radiologist Impression: [address] [address] [address] Scan Report Signed Patient: Marlin Correa MR#: [id number] : 1950 Acct:[id number] Age/Sex: 73 / F ADM Date: 03/12/24 Loc: HO.ED Attending Dr: Ordering Physician: John Gustafson MD Date of Service: 03/12/24 Procedure(s): CT abdomen pelvis wo IV con Accession Number(s): [id number] cc: Physician,Unknown ; John Gustafson MD~ EXAMINATION: CT ABDOMEN AND PELVIS WITHOUT CONTRAST CLINICAL INFORMATION: Status post manual reduction of ventral hernia COMPARISON: CT abdomen from 01/10/2024 TECHNIQUE: Multidetector volumetric imaging was performed from the superior aspect of the liver through the pubic symphysis. Sagittal and coronal reformatted images were obtained on the technologist's workstation. This CT examination was performed using dose optimization techniques as appropriate, variously including the following: *Automated exposure control *Adjustment of mA and/or kV according to patient size (this includes techniques or standardized protocols for targeted exams where dose is matched to indication/reason for exam; i.e. extremities or head) *Use of iterative reconstruction technique DLP: 984 mGy-cm FINDINGS: LUNG BASES: Bibasilar atelectasis versus scarring. No pneumothorax. Valvular replacement. Coronary artery calcifications. Partially visualized pacer leads. Elevation the right hemidiaphragm. LIVER, GALLBLADDER, AND BILIARY TREE: The liver is normal in size, shape, and attenuation. No focal hepatic lesion or biliary ductal dilatation is present. The gallbladder is surgically absent. PANCREAS: Atrophic appearance of the pancreas. SPLEEN: Unremarkable. ADRENAL GLANDS: Unremarkable. KIDNEYS AND URETERS: The kidneys are normal in size, shape, and attenuation. No hydronephrosis, hydroureter, or calculi seen. No perinephric stranding. BLADDER: Unremarkable. GASTROINTESTINAL TRACT AND ABDOMINAL WALL: Redemonstrated right mid to lower abdominal wall ventral hernia containing loops of mildly prominent though nonobstructed small bowel. Hernia measures approximately 4.0 cm at its opening. Colonic diverticulosis without acute diverticulitis. The small and large bowel are unremarkable. The appendix is not definitively visualized. LYMPH NODES: No enlarged lymph nodes per size criteria. VASCULAR: Abdominal aorta is nonaneurysmal. PELVIC VISCERA: Limited evaluation of the uterus secondary to streak artifact at this level. OSSEOUS STRUCTURES: Left hip arthroplasty with streak artifact. Severe osteopenia. Redemonstrated compression deformity of L5. Multilevel degenerative changes of the thoracolumbar and lumbosacral spine. CT/CT abdomen pelvis wo IV con IMPRESSION: 1. Redemonstrated right mid to lower abdominal wall ventral hernia containing loops of mildly prominent though nonobstructed small bowel. Hernia measures approximately 4.0 cm at its opening. 2. Colonic diverticulosis without acute diverticulitis. 3. Severe osteopenia with chronic compression deformity of L5. Medications Administered Discontinued Medications Generic Name Dose Route Start Last Admin Trade Name Freq PRN Reason Stop Dose Admin Morphine Sulfate 4 mg 03/12/24 19:59 03/12/24 20:06 Morphine Sulfate 4 Mg/Ml Cartridge IVPUSH 03/12/24 20:00 4 mg ONCE ONE Administration Protocol Ondansetron HCl 4 mg 03/12/24 19:59 03/12/24 20:06 Ondansetron Hcl 4 Mg/2 Ml Vial IVPUSH 03/12/24 20:00 4 mg ONCE ONE Administration Discharge Plan Discharge Clinical Impression: Ventral hernia without obstruction or gangrene Patient Disposition: Home, Self-Care Instructions: Ventral Hernia (ED) Additional Instructions: Diet to push back hernia as soon as its comes out See surgeon tomorrow Report to the ER if pain in the hernia area/vomiting Prescriptions: No Action (DME) compression socks, medium Misc See Rx Instructions .Route Qty: 2 0RF Rx Instructions: As directed valsartan 160 mg tablet 80 mg PO DAILY 90 Days Qty: 45 3RF amiodarone 200 mg tablet 100 mg PO DAILY Qty: 45 3RF carvedilol 12.5 mg tablet 12.5 mg PO BID Qty: 180 3RF furosemide 20 mg tablet 20 mg PO DAILY Qty: 90 2RF Rx Instructions: take 2 when having swelling multivitamin Tablet 1 tab PO DAILY cholecalciferol (vitamin D3) [Vitamin D3] 25 mcg (1,000 unit) Tablet 25 mcg PO BID acetaminophen 325 mg capsule 650 mg PO QID PRN (Reason: pain) 30 Days Qty: 240 0RF levothyroxine 75 mcg tablet 75 mcg PO QAM sennosides [senna] 8.6 mg Tablet 17.2 mg PO BEDTIME PRN (Reason: Constipation) zinc oxide 13 % Cream 1 appl TOPICAL DAILY PRN (Reason: buttock) omeprazole 20 mg capsule,delayed release(DR/EC) 20 mg PO DAILY loratadine 10 mg tablet 10 mg PO DAILY tramadol 50 mg tablet 100 mg PO TID atorvastatin 20 mg tablet 20 mg PO BEDTIME clonazepam 2 mg tablet 2 mg PO BEDTIME PRN (Reason: Restless Leg(S)) alendronate 70 mg tablet 70 mg PO DELGADO Rx Instructions: tuesday aspirin [Adult Aspirin Regimen] 81 mg tablet,delayed release (DR/EC) 81 mg PO DAILY Referrals: Wilfred Sin MD [Physician] - 1 week Print Language: Guinean
[2024-03-12 19:44] LABS: MANUAL DIFF FLAG NO
[2024-03-12 19:46] LABS: Basophils Absolute Auto 0.1 X10*3/uL (0.0-0.2); Basophils Percent Auto 0.7 % (0-2); Eosinophils Absolute Auto 0.2 X10*3/uL (0.0-0.4); Eosinophils Percent Auto 1.7 % (0-4); Hematocrit 38.6 % (37.0-47.0); Hemoglobin 12.8 g/dl (12.0-16.0); Imm Gran Abs Auto 0.03 X10*3/uL (0.00-0.03); Imm Gran Pct Auto 0.3 % (0.0-0.4); Lymphocytes Absolute Auto 0.7 X10*3/uL (1.2-4.9); Lymphocytes Percent Auto 8.2 % (20-40); Mean Corpuscular HGB Conc 33.2 g/dl (31.0-35.0); Mean Corpuscular Hemoglobin 32.2 pg (27.0-33.0); Mean Corpuscular Volume 97.2 fL (80.0-98.0); Mean Platelet Volume 10.1 fL (9.4-12.3); Monocytes Absolute Auto 0.6 X10*3/uL (0.1-1.2); Monocytes Percent Auto 6.4 % (2-11); Neutrophils Absolute Auto 7.3 x10*3/uL (2.0-8.3); Neutrophils Percent Auto 82.7 % (45-73); Platelet Count 167 X10*3/uL (160-400); Red Blood Count 3.97 X10*6/uL (4.20-5.50); White Blood Count 8.9 X10*3/uL (4.8-10.8)
[2024-03-12 19:53] VITALS: BP 159/73; PULSE 63; RESP 14; O2SAT 97
[2024-03-12 19:59] LABS: Alanine Aminotransferase 15 U/L (0-31); Albumin Level 3.8 g/dL (3.5-5.0); Alkaline Phosphatase 109 U/L (39-117); Anion Gap 18 (12-20); Aspartate Amino Transferase 27 U/L (5-31); Bilirubin Direct 0.2 mg/dL (0.0-0.5); Bilirubin Total 0.6 mg/dL (0.0-1.0); Blood Urea Nitrogen 22 mg/dL (9-16); Calcium 9.2 mg/dL (8.4-10.2); Carbon Dioxide 24 mmol/L (22-29); Chloride 102 mmol/L (96-108); Creatinine Clr Calc Pharmacy 43.6; Estimated Glomerular Filt Rate 48; Glucose Random 146 mg/dL (60-115); Lipase 11 U/L (8-78); Partial Thromboplastin Time 29.3 SEC (26.0-36.8); Potassium 4.6 mmol/L (3.3-5.1); Sodium 139 mmol/L (135-145)
[2024-03-12 20:06] VITALS: RESP 16
[2024-03-12] MEDS: Morphine Sulfate 4 MG/ML CARTRIDGE IVPUSH (20:06)
[2024-03-12] MEDS: ondansetron HCL 4 MG/2 ML VIAL IVPUSH (20:06)
[2024-03-12 22:20] VITALS: BP 129/47; PULSE 60; RESP 13; TEMP 36.8; O2SAT 95
[2024-03-13 01:11] VITALS: BP 114/44; PULSE 60; RESP 10; TEMP 36.5; O2SAT 94
== END 2024-03-13 01:12 | disposition home or self-care (01) ==
PROVIDERS: Emergency Provider Internal Medicine
DX: K43.9 Ventral hernia without obstruction or gangrene (principal); R11.0 Nausea; R10.9 Unspecified abdominal pain; R07.89 Other chest pain; Z79.899 Other long term (current) drug therapy
CPT/HCPCS: 36415; 74176; 80053; 82248; 83690; 84484; 85025; 85730; 93005; 96374; 96375; 99284; 99285; J2270; J2405

== ENCOUNTER → 2024-03-12 19:12 | Outpatient (BNV) | payer MEDICARE, SELFPAY | PROVIDERS: Emergency Provider Internal Medicine; Visit Provider Internal Medicine Cardiovascular Disease | DX: R94.31 Abnormal electrocardiogram [ECG] [EKG] (principal) | CPT/HCPCS: 93010 ==

== ENCOUNTER 2024-03-23 09:43 | Outpatient (AMB) | payer MEDICARE, SELFPAY ==
--- NOTE | 2024-03-23 09:46 | A.OFFVIS_ITS ---
Vital Signs 03/23/24 09:53 Height 5 ft 2 in Weight 178 lb 9.191 oz BMI 32.7 BP not taken reason Medical Reason Intake Visit Reasons: abdominal wall ventral hernia Intake Note: Patient is seen in office for ER follow up visit, following abdominal wall ventral hernia. 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 Accompanied by: Grand Child Allergies levofloxacin [From LEVAQUIN] Allergy (Intermediate, Verified 03/23/24 09:52) RASH Darvocet-N 50 Allergy (Mild, Uncoded 03/23/24 09:52) hives Sulfacet-R Allergy (Unknown, Uncoded 03/23/24 09:52) gi Medication List - Last Reconciled 03/23/24 by Wilfred Sin MD acetaminophen 650 mg (2 x 325 mg) PO QID PRN 30 days alendronate 70 mg PO DELGADO amiodarone 100 mg (1/2 x 200 mg) PO DAILY aspirin (Adult Aspirin Regimen) 81 mg PO DAILY atorvastatin 20 mg PO BEDTIME carvedilol 12.5 mg PO BID cholecalciferol (vitamin D3) (Vitamin D3) 25 mcg PO BID clonazepam 2 mg PO BEDTIME PRN compression socks, medium As directed furosemide 20 mg PO DAILY levothyroxine 75 mcg PO QAM loratadine 10 mg PO DAILY multivitamin 1 tab PO DAILY omeprazole 20 mg PO DAILY sennosides (senna) 17.2 mg PO BEDTIME PRN tramadol 100 mg PO TID valsartan 80 mg (1/2 x 160 mg) PO DAILY 90 days zinc oxide 13% 1 appl topical DAILY PRN HPI Comments Details: 73-year-old female patient presenting for evaluation of a large incisional hernia. She had a prior umbilical hernia repaired at [facility] proximally 20 years ago. She now has a long history of a large recurrent hernia which is now causing increased discomfort. She was recently evaluated in the emergency department but discharged with instructions to follow up with surgery. She is an extensive cardiac history including cardiomyopathy, coronary artery disease, right bundle branch block, AFib, uterine cancer, asthma, and is status post AICD placement and Watchman placement. She reports now being in constant pain and is unable to sleep because of this. She is also unable to eat. She tries to reduce the hernia is unable to reduce the hernia. [facility] Medical History Pre-operative cardiovascular examination History of uterine cancer Mild intermittent asthma Osteoarthritis of left hip Cardiomyopathy CAD (coronary artery disease) HTN (hypertension) Biventricular ICD (implantable cardioverter-defibrillator) in place (~04/2020) Paroxysmal atrial fibrillation LBBB (left bundle branch block) Chronic systolic heart failure Surgical History Hx of hysterectomy History of total left hip replacement Hx of hernia repair History of permanent cardiac pacemaker placement Family History Father Cancer Mother No problems noted. Social History Household Members: Other Household Members Other:: granddaughter Housing: House Do you presently have visiting nurse or other home services: Yes Alcohol intake: never Patient Tobacco Use Status: Never used Tobacco Second Hand Smoke Exposure: No Advance Directives Date on File: 10/08/21 service: No Current occupational status: retired Current occupation: rt handed Review of Systems Const Unobtainable due to mental condition Physical Exam Vital Signs: BMI result Body Mass Index 32.7 Const General: acute distress Nutritional Appearance: well nourished Orientation/consciousness: patient oriented x3 Resp Effort & Inspection: normal respiratory effort GI Other: Large pannus, large palpable hernia with transverse incision in the right lower quadrant and midline. Hernia does reduce to some degree but immediately returns. There is tenderness to palpation. Neuro General: patient oriented x3 Extrem Other: Edema Assessment & Plan Assessment & Plan (1) Hernia, ventral, with obstruction: Code(s): K43.6 - Other and unspecified ventral hernia with obstruction, without gangrene Category: Medical (2) Recurrent ventral hernia: Code(s): K43.2 - Incisional hernia without obstruction or gangrene Category: Medical Plan 73-year-old female patient with a large complex incisional hernia with constant pain. Patient will need repair after medical clearance with her multiple medical issues. I recommended patient be admitted through the emergency department with preparation for surgery early next week. Patient expressed understanding and agrees with the plan. Patient being transferred to the emergency department currently. Coding Level of Care Code New Pt Level 5 (97079) Diagnoses Hernia, ventral, with obstruction K43.6 Recurrent ventral hernia K43.2
[2024-03-23 09:53] VITALS: BMI 32.7
== END 2024-03-23 10:07 | disposition home or self-care (01) ==
PROVIDERS: Visit Provider Surgery
DX: K43.6 Other and unspecified ventral hernia with obstruction, without gangrene (principal); K43.2 Incisional hernia without obstruction or gangrene
CPT/HCPCS: 99205

== ENCOUNTER 2024-03-23 10:11 | Emergency (ER) | payer MEDICARE, SELFPAY ==
--- NOTE | ~2024-03-23 | XR_ITS ---
EXAMINATION: XR ABDOMEN KUB CLINICAL INDICATION: pain, hx of obstruction COMPARISON: CT abdomen/pelvis 03/12/2024 TECHNIQUE: AP view of the abdomen. FINDINGS: There are no dilated loops of small bowel. There are no air-fluid levels. Stool and air is visualized throughout the entirety of the colon to the rectum. No overt pneumoperitoneum. Bilateral pelvic phleboliths. Surgical clips overlie the right upper quadrant and pelvis. Left chest AICD/pacemaker leads partially visualized. Left atrial appendage occlusion device. The visualized lung bases are clear. The osseous structures are unremarkable. Intact left total hip arthroplasty. XR/XR KUB IMPRESSION: Nonobstructive bowel gas pattern.
[2024-03-23 10:55] VITALS: BP 122/69; PULSE 65; RESP 16; TEMP 36.7; O2SAT 94; BMI 31.0
--- NOTE | 2024-03-23 11:00 | ED_ITS ---
HPI - Abdominal Pain General Chief Complaint: Abdominal Pain Stated Complaint: hernia pain Related Data Home Medications ?Medication ?Instructions ?Recorded ?Confirmed atorvastatin 20 mg tablet 20 mg PO BEDTIME 08/15/20 03/23/24 loratadine 10 mg tablet 10 mg PO DAILY 08/15/20 03/23/24 omeprazole 20 mg capsule,delayed 20 mg PO DAILY 08/15/20 03/23/24 release tramadol 50 mg tablet 100 mg PO TID 08/15/20 03/23/24 clonazepam 2 mg tablet 2 mg PO BEDTIME PRN Restless Leg(S) 07/09/21 03/23/24 cholecalciferol (vitamin D3) 25 25 mcg PO BID 08/16/21 03/23/24 mcg (1,000 unit) tablet (Vitamin D3) multivitamin 1 tab PO DAILY 08/16/21 03/23/24 alendronate 70 mg tablet 70 mg PO DELGADO 03/01/23 03/23/24 aspirin 81 mg tablet,delayed 81 mg PO DAILY 03/01/23 03/23/24 release (Adult Aspirin Regimen) levothyroxine 75 mcg tablet 75 mcg PO QAM 01/10/24 03/23/24 sennosides 8.6 mg tablet (senna) 17.2 mg PO BEDTIME PRN Constipation 01/10/24 03/23/24 zinc oxide 13 % topical cream 1 appl topical DAILY PRN buttock 01/10/24 03/23/24 Previous Rx's ?Medication ?Instructions ?Recorded acetaminophen 325 mg capsule 650 mg (2 x 325 mg) PO QID PRN 10/07/21 pain 30 days #240 caps compression socks, medium #2 ea 03/29/23 valsartan 160 mg tablet 80 mg (1/2 x 160 mg) PO DAILY 90 09/20/23 days #45 tabs amiodarone 200 mg tablet 100 mg (1/2 x 200 mg) PO DAILY #45 10/19/23 tabs carvedilol 12.5 mg tablet 12.5 mg PO BID #180 tabs 10/19/23 furosemide 20 mg tablet 20 mg PO DAILY Edema #90 tabs 12/16/23 Allergies Allergy/AdvReac Type Severity Reaction Status Date / Time levofloxacin [From LEVAQUIN] Allergy Intermediate RASH Verified 03/23/24 11:01 Darvocet-N 50 Allergy Mild hives Uncoded 03/23/24 11:01 Sulfacet-R Allergy Unknown gi Uncoded 03/23/24 11:01 [facility] Past Medical History Medical History Pre-operative cardiovascular examination History of uterine cancer Mild intermittent asthma Osteoarthritis of left hip Cardiomyopathy CAD (coronary artery disease) HTN (hypertension) Biventricular ICD (implantable cardioverter-defibrillator) in place (~04/2020) Paroxysmal atrial fibrillation LBBB (left bundle branch block) Chronic systolic heart failure Surgical History Hx of hysterectomy History of total left hip replacement Hx of hernia repair History of permanent cardiac pacemaker placement Family History Family History Father Cancer Mother No problems noted. Social History Social History Household Members: Other Household Members Other:: granddaughter Housing: House Do you presently have visiting nurse or other home services: Yes Alcohol intake: never Patient Tobacco Use Status: Never used Tobacco Second Hand Smoke Exposure: No Advance Directives: Yes Advance Directives on File: Yes Advance Directives Date on File: 10/08/21 service: No Current occupational status: retired Current occupation: rt handed Physical Exam ED Vital Signs: Vital Signs - 24 hr 03/23/24 10:55 Temperature 98.1 F Pulse Rate 65 Respiratory Rate 16 Blood Pressure 122/69 Pulse Oximetry 94 Oxygen Delivery Method Room Air BMI result Body Mass Index 31.0 Course Course Course Narrative: This is an RME: Additional HPI, ROS, PE not included below will be deferred to primary provider. RME assessment and note performed by: Liliana Negro PA-C This is a 39-yvyd-aaf-female, with a hx of asthma cardia myopathy, hypertension, CAD, paroxysmal atrial fibrillation, LBBB, who presents emergency department with complaints of ongoing abdominal pain x 3 months, worsening over the last few days. Patient was seen here on March 12 with similar symptoms and had a CT scan which showed mid to lower abdominal wall ventral hernia containing loops with no obstructed bowel. Endorsing nausea and constipation. Last bowel movement was yesterday. No fevers vomiting. Abdomen is soft, with tenderness palpation in the umbilical area. Plan: Labs, UA, KUB Reevaluation(s) Reevaluation #1: Patient left without completing treatment. Medical Decision Making Lab Data 03/23/24 11:40 03/23/24 11:40 Labs: Lab Results 03/23/24 Range/Units 11:40 WBC 7.4 (4.8-10.8) X10*3/uL RBC 4.02 L (4.20-5.50) X10*6/uL Hgb 12.9 (12.0-16.0) g/dl Hct 39.2 (37.0-47.0) % MCV 97.5 (80.0-98.0) fL MCH 32.1 (27.0-33.0) pg MCHC 32.9 (31.0-35.0) g/dl RDW 13.6 (11.0-16.0) % Plt Count 199 (160-400) X10*3/uL MPV 10.0 (9.4-12.3) fL Immature Gran % (Auto) 0.4 (0.0-0.4) % Neut % (Auto) 76.6 H (45-73) % Lymph % (Auto) 10.3 L (20-40) % [place] % (Auto) 8.0 (2-11) % Eos % (Auto) 3.9 (0-4) % Baso % (Auto) 0.8 (0-2) % Lymph # (Auto) 0.8 L (1.2-4.9) X10*3/uL [place] # (Auto) 0.6 (0.1-1.2) X10*3/uL Eos # (Auto) 0.3 (0.0-0.4) X10*3/uL Baso # (Auto) 0.1 (0.0-0.2) X10*3/uL Abs Immat Gran (auto) 0.03 (0.00-0.03) X10*3/uL Absolute Neuts (auto) 5.7 (2.0-8.3) x10*3/uL Absolute Nucleated RBC 0.000 (0.0-0.012) X10*3/uL Nucleated RBC % (auto) 0.0 (0.0-0.2) /100WBC PT 11.8 (11.1-13.3) SEC INR 1.0 (0.9-1.1) APTT 29.0 (26.0-36.8) SEC Sodium 139 (135-145) mmol/L Potassium 4.8 (3.3-5.1) mmol/L Chloride 103 (96-108) mmol/L Carbon Dioxide 29 (22-29) mmol/L Anion Gap 12 (12-20) BUN 24 H (9-16) mg/dL Creatinine 1.31 (0.5-1.4) mg/dL Estim Creat Clear Calc 36.1 Estimated GFR 40 Random Glucose 107 (60-115) mg/dL Lactic Acid 0.6 (0.5-2.0) mmol/L Calcium 9.3 (8.4-10.2) mg/dL Magnesium 2.0 (1.6-2.6) mg/dL Total Bilirubin 0.5 (0.0-1.0) mg/dL Direct Bilirubin 0.2 (0.0-0.5) mg/dL AST 20 (5-31) U/L ALT 14 (0-31) U/L Alkaline Phosphatase 101 (39-117) U/L Troponin I High Sens 3.7 (<3.5-17.0) ng/L Total Protein 6.8 (6.5-8.0) g/dL Albumin 3.9 (3.5-5.0) g/dL Lipase 12 (8-78) U/L Discharge Plan Discharge Clinical Impression: Abdominal pain Patient Disposition: Left W/O Completing Treatment Prescriptions: No Action (DME) compression socks, medium Misc See Rx Instructions .Route Qty: 2 0RF Rx Instructions: As directed valsartan 160 mg tablet 80 mg PO DAILY 90 Days Qty: 45 3RF amiodarone 200 mg tablet 100 mg PO DAILY Qty: 45 3RF carvedilol 12.5 mg tablet 12.5 mg PO BID Qty: 180 3RF furosemide 20 mg tablet 20 mg PO DAILY Qty: 90 2RF Rx Instructions: take 2 when having swelling multivitamin Tablet 1 tab PO DAILY cholecalciferol (vitamin D3) [Vitamin D3] 25 mcg (1,000 unit) Tablet 25 mcg PO BID acetaminophen 325 mg capsule 650 mg PO QID PRN (Reason: pain) 30 Days Qty: 240 0RF levothyroxine 75 mcg tablet 75 mcg PO QAM sennosides [senna] 8.6 mg Tablet 17.2 mg PO BEDTIME PRN (Reason: Constipation) zinc oxide 13 % Cream 1 appl TOPICAL DAILY PRN (Reason: buttock) omeprazole 20 mg capsule,delayed release(DR/EC) 20 mg PO DAILY loratadine 10 mg tablet 10 mg PO DAILY tramadol 50 mg tablet 100 mg PO TID atorvastatin 20 mg tablet 20 mg PO BEDTIME clonazepam 2 mg tablet 2 mg PO BEDTIME PRN (Reason: Restless Leg(S)) alendronate 70 mg tablet 70 mg PO DELGADO Rx Instructions: tuesday aspirin [Adult Aspirin Regimen] 81 mg tablet,delayed release (DR/EC) 81 mg PO DAILY Discharge Date/Time: 03/23/24 18:08
--- NOTE | 2024-03-23 11:06 | ECG_ITS ---
Test Reason : EPIGASTRIC PAIN Blood Pressure : / mmHG Vent. Rate : 061 BPM Atrial Rate : 061 BPM P-R Int : 158 ms QRS Dur : 158 ms QT Int : 532 ms P-R-T Axes : 000 003 014 degrees QTc Int : 535 ms AV dual-paced rhythm Abnormal ECG When compared with ECG of 12-MAR-2024 19:13, Vent. rate has decreased BY 4 BPM Referred By: Liliana Negro Electronically Signed By:Tano Knight
[2024-03-23 11:47] LABS: MANUAL DIFF FLAG NO
[2024-03-23 11:52] LABS: Basophils Absolute Auto 0.1 X10*3/uL (0.0-0.2); Basophils Percent Auto 0.8 % (0-2); Eosinophils Absolute Auto 0.3 X10*3/uL (0.0-0.4); Eosinophils Percent Auto 3.9 % (0-4); Hematocrit 39.2 % (37.0-47.0); Hemoglobin 12.9 g/dl (12.0-16.0); Imm Gran Abs Auto 0.03 X10*3/uL (0.00-0.03); Imm Gran Pct Auto 0.4 % (0.0-0.4); Lymphocytes Absolute Auto 0.8 X10*3/uL (1.2-4.9); Lymphocytes Percent Auto 10.3 % (20-40); Mean Corpuscular HGB Conc 32.9 g/dl (31.0-35.0); Mean Corpuscular Hemoglobin 32.1 pg (27.0-33.0); Mean Corpuscular Volume 97.5 fL (80.0-98.0); Monocytes Absolute Auto 0.6 X10*3/uL (0.1-1.2); Neutrophils Absolute Auto 5.7 x10*3/uL (2.0-8.3); Neutrophils Percent Auto 76.6 % (45-73); Platelet Count 199 X10*3/uL (160-400); Red Blood Count 4.02 X10*6/uL (4.20-5.50); Red Cell Distribution Width 13.6 % (11.0-16.0); White Blood Count 7.4 X10*3/uL (4.8-10.8)
[2024-03-23 11:55] LABS: Prothrombin Time 11.8 SEC (11.1-13.3)
[2024-03-23 12:01] LABS: Lactic Acid 0.6 mmol/L (0.5-2.0)
[2024-03-23 12:05] LABS: Alanine Aminotransferase 14 U/L (0-31); Albumin Level 3.9 g/dL (3.5-5.0); Alkaline Phosphatase 101 U/L (39-117); Anion Gap 12 (12-20); Aspartate Amino Transferase 20 U/L (5-31); Bilirubin Direct 0.2 mg/dL (0.0-0.5); Bilirubin Total 0.5 mg/dL (0.0-1.0); Blood Urea Nitrogen 24 mg/dL (9-16); Calcium 9.3 mg/dL (8.4-10.2); Carbon Dioxide 29 mmol/L (22-29); Chloride 103 mmol/L (96-108); Creatinine Clr Calc Pharmacy 36.1; Estimated Glomerular Filt Rate 40; Glucose Random 107 mg/dL (60-115); Lipase 12 U/L (8-78); Potassium 4.8 mmol/L (3.3-5.1); Sodium 139 mmol/L (135-145); Total Protein 6.8 g/dL (6.5-8.0)
[2024-03-23 12:15] LABS: Troponin-I High Sensitivity 3.7 ng/L (<3.5-17.0)
== END 2024-03-23 18:08 | disposition left against medical advice (07) ==
PROVIDERS: Physician Assistant Medical; Emergency Provider Emergency Medicine
DX: R10.9 Unspecified abdominal pain (principal); I10 Essential (primary) hypertension; I48.0 Paroxysmal atrial fibrillation; I44.7 Left bundle-branch block, unspecified; J45.909 Unspecified asthma, uncomplicated; I11.9 Hypertensive heart disease without heart failure; I43 Cardiomyopathy in diseases classified elsewhere; Z79.899 Other long term (current) drug therapy
CPT/HCPCS: 36415; 74018; 80048; 80076; 83605; 83690; 83735; 84484; 85025; 85610; 85730; 93005; 99202; 99283

== ENCOUNTER → 2024-03-23 11:06 | Outpatient (BNV) | payer MEDICARE, SELFPAY | PROVIDERS: Emergency Provider Emergency Medicine; Visit Provider Internal Medicine Cardiovascular Disease | DX: R94.31 Abnormal electrocardiogram [ECG] [EKG] (principal) | CPT/HCPCS: 93010 ==

== ENCOUNTER → 2024-04-06 23:59 | Outpatient (BNV) | payer MEDICARE, SELFPAY ==
--- NOTE | 2024-04-06 13:38 | A.OFFVIS_ITS ---
Intake Visit Reasons: Remote HF Monitoring- [employer] Allergies levofloxacin [From LEVAQUIN] Allergy (Intermediate, Verified 03/23/24 11:01) RASH Darvocet-N 50 Allergy (Mild, Uncoded 03/23/24 11:01) hives Sulfacet-R Allergy (Unknown, Uncoded 03/23/24 11:01) gi PFSH Medical History (Updated 04/04/24 @ 08:23 by Bailee Mcfadden, RN) Asthma Degenerative joint disease Arthritis Thyroid disease Hx of transfusion of packed red blood cells Diverticulosis GERD (gastroesophageal reflux disease) Fibromyalgia Elevated liver enzymes Elevated cholesterol Osteoporosis Presence of Watchman left atrial appendage closure device Hx of radiation therapy History of chemotherapy History of uterine cancer Mild intermittent asthma Osteoarthritis of left hip Cardiomyopathy CAD (coronary artery disease) Pre-operative cardiovascular examination HTN (hypertension) Biventricular ICD (implantable cardioverter-defibrillator) in place (~04/2020) Paroxysmal atrial fibrillation LBBB (left bundle branch block) Chronic systolic heart failure Surgical History (Updated 04/03/24 @ 09:39 by Bailee Mcfadden RN) Hx of cholecystectomy Hx of hysterectomy History of total left hip replacement Hx of hernia repair History of permanent cardiac pacemaker placement Family History Father Cancer Mother No problems noted. Social History Household Members: Other Household Members Other:: granddaughter Housing: House Are you a primary care program director to a significant other at home: No Do you presently have visiting nurse or other home services: Yes (homemaker) Alcohol intake: never Patient Tobacco Use Status: Never used Tobacco Second Hand Smoke Exposure: No Use of substances other than those prescribed or required for medical reasons: No Have you been hit, kicked, punched, or otherwise hurt by someone within the past year? If so, by whom?: No Are you DNR?: No Advance Directives: Yes Advance Directives Information Provided: No Advance Directives on File: Yes Advance Directives Date on File: 10/08/21 Recently lost weight without trying: Yes How much weight loss: 2-13 pounds Eating poorly because of decreased appetite: No Nutrition screen score: 3 Nutrition Risks: Gastrointestinal Malabsorption Patient : No : No Poor oral hygiene: Yes (full upper denture and partial lower) service: No Current occupational status: retired Current occupation: rt handed Office Procedures Cardiac Device Check Cardiac Device Check Details: Remote heart failure report generated 04/06/2024. Heart failure parameters are stable [id number] Cardiac Device Interrogation, cardio physiologic monitor Procedure code (CPT) selection complete Assessment & Plan Assessment & Plan (1) Biventricular ICD (implantable cardioverter-defibrillator) in place: Onset Date: ~04/2020 Comment: Inverted [employer] Code(s): Z95.810 - Presence of automatic (implantable) cardiac defibrillator Category: Medical Plan: See above Coding Level of Care Code Procedure Only Diagnoses Biventricular ICD (implantable cardioverter-defibrillator) in place Z95.810 CPT Codes Cardiac Device Check - Cardiac Device 15: [id number] Cardiac Device Interrogation, cardio physiologic monitor ([id number])
== END ==
PROVIDERS: Visit Provider Internal Medicine Cardiovascular Disease
DX: Z45.02 Encounter for adjustment and management of automatic implantable cardiac defibrillator (principal)
CPT/HCPCS: 93297

== ENCOUNTER → 2024-04-06 23:59 | Outpatient (BNV) | payer MEDICARE, SELFPAY ==
--- NOTE | 2024-04-06 13:39 | MHC.OFFVIS ---
Intake Visit Reasons: Remote ICD Check- [employer] Allergies levofloxacin [From LEVAQUIN] Allergy (Intermediate, Verified 03/23/24 11:01) RASH Darvocet-N 50 Allergy (Mild, Uncoded 03/23/24 11:01) hives Sulfacet-R Allergy (Unknown, Uncoded 03/23/24 11:01) gi PFSH Medical History (Updated 04/04/24 @ 08:23 by Bailee Mcfadden, RN) Asthma Degenerative joint disease Arthritis Thyroid disease Hx of transfusion of packed red blood cells Diverticulosis GERD (gastroesophageal reflux disease) Fibromyalgia Elevated liver enzymes Elevated cholesterol Osteoporosis Presence of Watchman left atrial appendage closure device Hx of radiation therapy History of chemotherapy History of uterine cancer Mild intermittent asthma Osteoarthritis of left hip Cardiomyopathy CAD (coronary artery disease) Pre-operative cardiovascular examination HTN (hypertension) Biventricular ICD (implantable cardioverter-defibrillator) in place (~04/2020) Paroxysmal atrial fibrillation LBBB (left bundle branch block) Chronic systolic heart failure Surgical History (Updated 04/03/24 @ 09:39 by Bailee Mcfadden RN) Hx of cholecystectomy Hx of hysterectomy History of total left hip replacement Hx of hernia repair History of permanent cardiac pacemaker placement Family History Father Cancer Mother No problems noted. Social History Household Members: Other Household Members Other:: granddaughter Housing: House Are you a primary health care attorney to a significant other at home: No Do you presently have visiting nurse or other home services: Yes (homemaker) Alcohol intake: never Patient Tobacco Use Status: Never used Tobacco Second Hand Smoke Exposure: No Use of substances other than those prescribed or required for medical reasons: No Have you been hit, kicked, punched, or otherwise hurt by someone within the past year? If so, by whom?: No Are you DNR?: No Advance Directives: Yes Advance Directives Information Provided: No Advance Directives on File: Yes Advance Directives Date on File: 10/08/21 Recently lost weight without trying: Yes How much weight loss: 2-13 pounds Eating poorly because of decreased appetite: No Nutrition screen score: 3 Nutrition Risks: Gastrointestinal Malabsorption Patient : No : No Poor oral hygiene: Yes (full upper denture and partial lower) service: No Current occupational status: retired Current occupation: rt handed Office Procedures Cardiac Device Check Cardiac Device Check Details: Remote ICD report generated 04/06/2024. ICD function is adequate. Bi V pacing about 97% of the time [id number] Cardiac Interrogation, implant defibrillator w/interim Procedure code (CPT) selection complete Assessment & Plan Assessment & Plan (1) Biventricular ICD (implantable cardioverter-defibrillator) in place: Onset Date: ~04/2020 Comment: [facility] [employer] Code(s): Z95.810 - Presence of automatic (implantable) cardiac defibrillator Category: Medical Plan: See above Coding Level of Care Code Procedure Only Diagnoses Biventricular ICD (implantable cardioverter-defibrillator) in place Z95.810 CPT Codes Cardiac Device Check - Cardiac Device 13: [id number] Cardiac Interrogation, implant defibrillator w/interim ([id number])
== END ==
PROVIDERS: Visit Provider Internal Medicine Cardiovascular Disease
DX: Z45.02 Encounter for adjustment and management of automatic implantable cardiac defibrillator (principal)
CPT/HCPCS: 93295

== ENCOUNTER 2024-04-11 07:42 | Inpatient (IN) | payer MEDICARE, SELFPAY ==
[2024-04-04 08:25] VITALS: BMI 32.6
--- NOTE | 2024-04-09 12:25 | HO.ANESPROP2 ---
Documented by User: Sendy Kemp NP 04/09/24 12:28 HPI - Anesthesia Eval Consult details Narrative: 73yo F for Recurrent Incisional Hernia Non-Reducible with mesh Cardiac optimized without any new cardiac symptoms Cardiac catheterization 12/26/2019, mid LAD 20% stenosis, proximal 60% stenosis, RCA 100% stenosis, ramus 20% stenosis, ostial ramus 50% stenosis, collateral circulation from the distal circumflex to the right PDA. She does not report anginal sounding symptoms. Ambulates with walker. Recent Echo shows EF 50-55%. Basal inferior akinetic, mild decrease in RV systolic function, small to moderate pericardial effusion. Prior echo 07/08/2022 also showed small to moderate pericardial effusion. [facility] Active Problems Active Problems: All Active Problems Hernia, ventral, with obstruction (Acute) Recurrent ventral hernia (Acute) Abdominal pain (Acute) Presence of Watchman left atrial appendage closure device (Acute) Pericardial effusion (Acute) Osteoarthritis of left knee (Acute) Osteoarthritis of right knee (Acute) History of total left hip arthroplasty (Acute) Left displaced femoral neck fracture (Acute) HTN (hypertension) (Acute) Paroxysmal atrial fibrillation (Acute) Biventricular ICD (implantable cardioverter-defibrillator) in place (Acute ~04/2020) Chronic systolic heart failure (Acute) Past Medical History Medical History (Updated 04/04/24 @ 08:23 by Bailee Mcfadden RN) Asthma Degenerative joint disease Arthritis Thyroid disease Hx of transfusion of packed red blood cells Diverticulosis GERD (gastroesophageal reflux disease) Fibromyalgia Elevated liver enzymes Elevated cholesterol Osteoporosis Presence of Watchman left atrial appendage closure device Hx of radiation therapy History of chemotherapy History of uterine cancer Mild intermittent asthma Osteoarthritis of left hip Cardiomyopathy CAD (coronary artery disease) Pre-operative cardiovascular examination HTN (hypertension) Biventricular ICD (implantable cardioverter-defibrillator) in place (~04/2020) Paroxysmal atrial fibrillation LBBB (left bundle branch block) Chronic systolic heart failure Family History Family History Father Cancer Mother No problems noted. Family history of problems with anesthesia: No Surgical History Surgical History (Updated 04/03/24 @ 09:39 by Bailee Mcfadden RN) Hx of cholecystectomy Hx of hysterectomy History of total left hip replacement Hx of hernia repair History of permanent cardiac pacemaker placement History of Problems with Anesthesia: No Social History Social History Household Members: Other Household Members Other:: granddaughter Housing: House Are you a primary special needs child caregiver to a significant other at home: No Do you presently have visiting nurse or other home services: Yes (homemaker) Alcohol intake: never Patient Tobacco Use Status: Never used Tobacco Second Hand Smoke Exposure: No Use of substances other than those prescribed or required for medical reasons: No Have you been hit, kicked, punched, or otherwise hurt by someone within the past year? If so, by whom?: No Are you DNR?: No Advance Directives: Yes Advance Directives Information Provided: No Advance Directives on File: Yes Advance Directives Date on File: 10/08/21 Recently lost weight without trying: Yes How much weight loss: 2-13 pounds Eating poorly because of decreased appetite: No Nutrition screen score: 3 Nutrition Risks: Gastrointestinal Malabsorption Patient : No : No Poor oral hygiene: Yes (full upper denture and partial lower) service: No Current occupational status: retired Current occupation: rt handed Meds Allergies Allergy/AdvReac Type Severity Reaction Status Date / Time levofloxacin [From LEVAQUIN] Allergy Intermediate RASH Verified 03/23/24 11:01 Darvocet-N 50 Allergy Mild hives Uncoded 03/23/24 11:01 Sulfacet-R Allergy Unknown gi Uncoded 03/23/24 11:01 Home Medications ?Medication ?Instructions ?Recorded ?Confirmed ?Last Taken ?Type atorvastatin 20 mg tablet 20 mg PO BEDTIME 08/15/20 04/04/24 01/09/24 History loratadine 10 mg tablet 10 mg PO DAILY 08/15/20 04/04/24 01/09/24 History omeprazole 20 mg capsule,delayed 20 mg PO DAILY 08/15/20 04/04/24 01/09/24 History release tramadol 50 mg tablet 100 mg PO TID 08/15/20 04/04/24 01/09/24 History clonazepam 2 mg tablet 2 mg PO BEDTIME PRN Restless Leg(S) 07/09/21 04/04/24 01/09/24 History cholecalciferol (vitamin D3) 25 25 mcg PO BID 08/16/21 04/04/24 01/09/24 History mcg (1,000 unit) tablet (Vitamin D3) multivitamin 1 tab PO DAILY 08/16/21 04/04/24 01/09/24 History alendronate 70 mg tablet 70 mg PO DELGADO 03/01/23 04/04/24 01/08/24 History aspirin 81 mg tablet,delayed 81 mg PO DAILY 03/01/23 04/04/24 01/09/24 History release (Adult Aspirin Regimen) levothyroxine 75 mcg tablet 75 mcg PO DAILY@0600 01/10/24 04/11/24 01/09/24 History sennosides 8.6 mg tablet (senna) 17.2 mg PO BEDTIME Constipation 01/10/24 04/04/24 Unknown History zinc oxide 13 % topical cream 1 appl topical DAILY PRN buttock 01/10/24 04/04/24 Unknown History amiodarone 200 mg tablet 100 mg PO DAILY 04/04/24 04/04/24 Unknown History ondansetron HCl 4 mg tablet 4 mg PO Q6H PRN Nausea 04/04/24 04/04/24 Unknown History Exam Height,Weight and Vital Signs: Height 5 ft 2 in Weight 80.739 kg Pertinent Lab Results Pertinent Lab Results: Laboratory Tests 03/23/24 11:40 WBC 7.4 Hgb 12.9 Hct 39.2 Plt Count 199 Sodium 139 Potassium 4.8 Chloride 103 Carbon Dioxide 29 BUN 24 H Creatinine 1.31 Narrative Narrative: EKG 02/2024 Vent. Rate : 061 BPM Atrial Rate : 061 BPM P-R Int : 158 ms QRS Dur : 158 ms QT Int : 532 ms P-R-T Axes : 000 003 014 degrees QTc Int : 535 ms AV dual-paced rhythm Abnormal ECG When compared with ECG of 12-MAR-2024 19:13, Vent. rate has decreased BY 4 BPM ECHO 12/2023 Conclusions: - Normal left ventricular cavity size. There is mildly increased left ventricular wall thickness. The left ventricular systolic function is low normal. The visually estimated ejection fraction is between 50-55%. - The basal inferior segment is akinetic. - There is mildly decreased right ventricular systolic function. - There are no definitive echocardiographic findings of tamponade physiology. Small to moderate circumferential pericardial effusion, more prominent posteriorly. Cardiac Device Check - ICD - 03/2024 Details: Remote ICD report generated 04/06/2024. ICD function is adequate. Bi V pacing about 97% of the time [id number] Cardiac Interrogation, implant defibrillator w/interim Cardiac Device Check - HF Monitor - 03/2024 Details: Remote heart failure report generated 04/06/2024. Heart failure parameters are stable Assessment and Plan Assessment Anesthesia Assessment: Chart Reviewed Final Anesthetic Review Family History of Problems with Anesthesia: No History of Problems with Anesthesia: No Documented by User: Reinaldo Tan MD 04/11/24 11:02 [facility] Past Medical History Medical History (Updated 04/04/24 @ 08:23 by Bailee Mcfadden, RN) Asthma Degenerative joint disease Arthritis Thyroid disease Hx of transfusion of packed red blood cells Diverticulosis GERD (gastroesophageal reflux disease) Fibromyalgia Elevated liver enzymes Elevated cholesterol Osteoporosis Presence of Watchman left atrial appendage closure device Hx of radiation therapy History of chemotherapy History of uterine cancer Mild intermittent asthma Osteoarthritis of left hip Cardiomyopathy CAD (coronary artery disease) Pre-operative cardiovascular examination HTN (hypertension) Biventricular ICD (implantable cardioverter-defibrillator) in place (~04/2020) Paroxysmal atrial fibrillation LBBB (left bundle branch block) Chronic systolic heart failure Functional capacity: uses cane/walker Family History Family History Father Cancer Mother No problems noted. Surgical History Surgical History (Updated 04/03/24 @ 09:39 by Bailee Mcfadden RN) Hx of cholecystectomy Hx of hysterectomy History of total left hip replacement Hx of hernia repair History of permanent cardiac pacemaker placement Social History Social History Household Members: Other Household Members Other:: granddaughter Housing: House Are you a primary special needs child caregiver to a significant other at home: No Do you presently have visiting nurse or other home services: Yes (homemaker) Alcohol intake: never Patient Tobacco Use Status: Never used Tobacco Second Hand Smoke Exposure: No Use of substances other than those prescribed or required for medical reasons: No Have you been hit, kicked, punched, or otherwise hurt by someone within the past year? If so, by whom?: No Are you DNR?: No Advance Directives: Yes Advance Directives Information Provided: No Advance Directives on File: Yes Advance Directives Date on File: 10/08/21 Recently lost weight without trying: Yes How much weight loss: 2-13 pounds Eating poorly because of decreased appetite: No Nutrition screen score: 3 Nutrition Risks: Gastrointestinal Malabsorption Patient : No : No Poor oral hygiene: Yes (full upper denture and partial lower) service: No Current occupational status: retired Current occupation: rt handed Meds Allergies Allergy/AdvReac Type Severity Reaction Status Date / Time levofloxacin [From LEVAQUIN] Allergy Intermediate RASH Verified 03/23/24 11:01 Darvocet-N 50 Allergy Mild hives Uncoded 03/23/24 11:01 Sulfacet-R Allergy Unknown gi Uncoded 03/23/24 11:01 Home Medications ?Medication ?Instructions ?Recorded ?Confirmed ?Last Taken ?Type atorvastatin 20 mg tablet 20 mg PO BEDTIME 08/15/20 04/04/24 01/09/24 History loratadine 10 mg tablet 10 mg PO DAILY 08/15/20 04/04/24 01/09/24 History omeprazole 20 mg capsule,delayed 20 mg PO DAILY 08/15/20 04/04/24 01/09/24 History release tramadol 50 mg tablet 100 mg PO TID 08/15/20 04/04/24 01/09/24 History clonazepam 2 mg tablet 2 mg PO BEDTIME PRN Restless Leg(S) 07/09/21 04/04/24 01/09/24 History cholecalciferol (vitamin D3) 25 25 mcg PO BID 08/16/21 04/04/24 01/09/24 History mcg (1,000 unit) tablet (Vitamin D3) multivitamin 1 tab PO DAILY 08/16/21 04/04/24 01/09/24 History alendronate 70 mg tablet 70 mg PO DELGADO 03/01/23 04/04/24 01/08/24 History aspirin 81 mg tablet,delayed 81 mg PO DAILY 03/01/23 04/04/24 01/09/24 History release (Adult Aspirin Regimen) levothyroxine 75 mcg tablet 75 mcg PO DAILY@0600 01/10/24 04/11/24 01/09/24 History sennosides 8.6 mg tablet (senna) 17.2 mg PO BEDTIME Constipation 01/10/24 04/04/24 Unknown History zinc oxide 13 % topical cream 1 appl topical DAILY PRN buttock 01/10/24 04/04/24 Unknown History amiodarone 200 mg tablet 100 mg PO DAILY 04/04/24 04/04/24 Unknown History ondansetron HCl 4 mg tablet 4 mg PO Q6H PRN Nausea 04/04/24 04/04/24 Unknown History Exam Airway Mallampati Class: III TM Dist: <=3cm Neck ROM: Full Denture: Upper Loose/Missing/Broken Teeth: No Heart: paced Lungs: cta Assessment and Plan Assessment Anesthesia Assessment: Anesthesia Plan Discussed Final Anesthetic Review NPO: Yes ASA Class: III Final Preanesthetic Review: No Changes in Pt Med Stat, Meds/Allgs Chart Reviewed, Consent Obtained/Reviewed and Anes Risks/Benef Reviewed Patient Risk: Intermediate Procedure Risk: Low Anesthetic Plan Anesthetic Plan: GA Disposition: Standard PACU
[2024-04-11] VITALS (9 sets, daily range): BP systolic 121–145; BP diastolic 45–60; PULSE 59–64; RESP 16–18; TEMP 36–36.7; O2SAT 94–100
--- OUTSIDE RECORDS SUMMARY | 2024-04-11 07:46 | XMS_ITS | Continuity of Care Document ---
Author Organization [facility] ter Address [address] [place] [id number] Care Team Providers Care Retort Operator Name Role Phone Wing Emerson MD Primary Care Physician [place] [facility] [place]/[address] [address]- Discharge Disposition: A-D/C Home Attending Physician: Shirin North MD Admitting Physician: Shirin North MD Referring Physician: Shirin North MD Allergies, Adverse Reactions, Alerts Substance Reaction Severity Status sulfa drugs Stomach pain Active Levaquin Allergy to sulfa drugs Activ e Darvocet-N 100 Allergy to sulfa drugs Act laura Medications albuterol 90 mcg/inh inhalation powder 2 puffs, Inhalation, Every 6 hours, PRN as needed, # 1 each, 0 Refills, Maintenance, 12/26/19 6:43:00 EST, Powder Start Date: 12/26/19 Status: Ordered amiodarone 200 mg oral tablet 200 mg, 1, tablet, By Mouth, Daily, # 90 tablet, Refills 0, Maintenance, 12/26/19 6:43:00 EST Start Date: 12/26/19 Status: Ordered amoxicillin 500 mg oral capsule 1 capsule = 500 mg, By Mouth, Every 12 hours, for 5 days, # 10 capsule, 0 Refills, Acute 11/10/20 7:50:00 EST, 11/05/20 7:50:00 EST, Capsule, [id number], Partial fill upon patient request if the prescription is for a schedule II opioid drug.,... Start Date: 11/05/20 Stop Date: 11/10/20 Status: Ordered atorvastatin 20 mg oral tablet 1 tablet = 20 mg, By Mouth, Daily, # 30 tablet, 0 Refills, Maintenance, 12/26/19 6:43:00 EST, Tablet Start Date: 12/26/19 Status: Ordered clonazePAM 2 mg oral tablet 1 tablet = 2 mg, By Mouth, 3 times a day, PRN Anxiety, 0 Refills, Maintenance, 12/26/19 6:43:00 EST Start Date: 12/26/19 Status: Ordered Coreg 6.25 mg oral tablet 6.25 mg, 1, tablet, By Mouth, 2 times a day, Refills 0, Maintenance, 05/22/20 11:20:00 EDT Start Date: 05/22/20 Status: Ordered Eliquis 5 mg oral tablet 1 tablet = 5 mg, By Mouth, 2 times a day, # 60 tablet, 0 Refills, Maintenance, 12/26/19 6:44:00 EST, Tablet Start Date: 12/26/19 Status: Ordered furosemide 20 mg oral tablet 1, capsule, By Mouth, Every other day, # 1 tablet, Refills 0, Maintenance, 12/26/19 6:44:00 EST Start Date: 12/26/19 Status: Ordered levonorgestrel 52 mg intrauterine device 1 each = 52 mg, Intrauterine, Once, # 1 each, 0 Refills, Soft Stop, 07/14/20 15:31:00 EDT, [facility], 157.7, cm, 07/14/20 14:27:00 EDT, Height, 85.2, kg, 07/14/20 14:27:00 EDT, Dry Weight Start Date: 07/14/20 Status: Ordered levothyroxine 25 mcg (0.025 mg) oral capsule 1 capsule = 25 mcg, By Mouth, Daily, 0 Refills, Maintenance, 08/06/20 10:02:00 EDT Start Date: 08/06/20 Status: Ordered loratadine 10 mg oral tablet 10 mg, 1, tablet, By Mouth, Daily, # 30 tablet, Refills 0, Maintenance, 12/26/19 6:45:00 EST Start Date: 12/26/19 Status: Ordered medroxyPROGESTERone 10 mg oral tablet 1, tablet, By Mouth, Daily, # 30 tablet, Refills 1, Tot. Refills 0, Maintenance, 08/05/20 9:07:00 EDT, Route to Pharmacy Electronically, [id number], 157.7, cm, 07/14/20 14:27:00 EDT, Height, 85.2, kg, 07/14/20 14:27:00 EDT, Dry Weight Start Date: 08/05/20 Status: Ordered MiraLax oral powder for reconstitution = 17 Gm, By Mouth, Daily in AM, dissolve in water before taking, # 255 Gm, 0 Refills, Maintenance, 10/28/20 9:28:00 EST, REC Powder, Partial fill upon patient request if the prescription is for a schedule II opioid drug. Start Date: 10/28/20 Status: Ordered MiraLax oral powder for reconstitution = 17 Gm, By Mouth, Daily, dissolve in water before taking, # 255 Gm, 0 Refills, Maintenance, 11/06/20 10:56:00 EST, REC Powder, [id number], Partial fill upon patient request if the prescription is for a schedule II opioid drug., 17 Gm By Mouth... Start Date: 11/06/20 Status: Ordered montelukast 10 mg oral tablet See Instructions, TAKE 1 TABLET BY MOUTH AT BEDTIME FOR 2 NIGHTS BEFORE CHEMO AND CONTINUE FOR 3 NIGHTS AFTER, # 30 tablet, Refills 0, Maintenance, Instructions Replace Required Details, Route to Pharmacy Electronically, [id number], 165.1, cm, 12... Start Date: 11/03/20 Status: Ordered Multivitamin Daily, 0 Refills, Maintenance, 08/06/20 10:01:00 EDT Start Date: 08/06/20 Status: Ordered omeprazole 20 mg oral delayed release tablet 1 tablet = 20 mg, By Mouth, Daily, # 30 tablet, 0 Refills, Maintenance, 12/26/19 6:45:00 EST, CR Tablet Start Date: 12/26/19 Status: Ordered oxyCODONE 5 mg oral tablet 5 mg, 1, tablet, By Mouth, Every 6 hours, PRN, # 15 tablet, Refills 0, Tot. Refills 0, Maintenance,for pain, 11/06/20 10:56:00 EST, Route to Pharmacy Electronically, [id number], Partial fillupon patient request, 165.1, cm, 11/06/20 8:23:00 E... Start Date: 11/06/20 Status: Ordered OxyCODONE IR Tablet 5 mg, Tablet, By Mouth, Every 4 hours, in PACU ONLY, if patient can tolerate PO, PRN for Pain , Mild, Routine, 11/06/20 10:15:00 EST Start Date: 11/06/20 Stop Date: 11/07/20 Status: Discontinued prochlorperazine 10 mg oral tablet 1 tablet = 10 mg, By Mouth, Every 6 hours, PRN Nausea, # 30 tablet, 2 Refills, Maintenance, 08/27/20 15:33:00 EDT, Tablet, [facility][id number], 157.7, cm, 08/27/20 9:55:00 EDT, Height, 88, kg, 08/27/20 9:55:00 EDT, Dry Weight Start Date: 08/27/20 Status: Ordered Senna S 50 mg-187 mg oral tablet 2 tablet, By Mouth, Daily at bedtime, # 30 tablet, 0 Refills, Maintenance, 11/06/20 10:56:00 EST, Tablet, [facility][id number], Partial fill upon patient request if the prescription is for a schedule II opioid drug., 2 tablet By Mouth Daily at bedtime,... Start Date: 11/06/20 Status: Ordered traMADol 50 mg oral tablet 1 tablet = 50 mg, By Mouth, Every 12 hours, PRN for pain, # 30 tablet, 0 Refills, Maintenance, 12/26/19 6:46:00 EST, Tablet Start Date: 12/26/19 Status: Ordered Tylenol 325 mg oral tablet 325 mg, 1, tablet, By Mouth, Every 4 hours, PRN, Can take 1-2 tablets, not to exceed 4000 mg/day, #50 tablet, Refills 0, Tot. Refills 0, Maintenance, for pain, 11/06/20 10:56:00 EST, Route to Pharmacy Electronically, [facility][id number], Partial anneliese... Start Date: 11/06/20 Status: Ordered valsartan 80 mg oral tablet 80 mg, 1, tablet, By Mouth, Daily, # 30 tablet, Refills 0, Maintenance, 05/21/20 12:36:00 EDT Start Date: 05/21/20 Status: Ordered Vitamin D3 1000 intl units oral capsule 1 capsule = 1,000 International_Units, By Mouth, Daily, # 75 capsule, 0 Refills, Maintenance, 12/26/19 6:46:00 EST, Capsule Start Date: 12/26/19 Status: Ordered Problem List Condition Effective Dates Status Health Status Inform ant Atrial fibrillation(Confirmed) Active Bone pain(Confirmed) Active Cardiomyopathy(Confirmed) Active Diabetes mellitus(Confirmed) Active Fibromyalgia(Confirmed) Active Stress incontinence(Confirmed) Active Ventral hernia(Confirmed) Active Recurrent incisional hernia(Confirmed) Active Endometrial cancer(Confirmed) Active Osteopenia(Confirmed) Active Peripheral edema(Confirmed) Active Vaginal lesion(Confirmed) Active Vital Signs Most recent to oldest [Reference Range]: 1 2 3 Height 165.1 cm (11/06/20 8:23 AM) 165.1 cm (10/28/20 10:03 AM) Weight 82.2 kg (11/06/20 8:23 AM) 82.2 kg (10/28/20 10:03 AM) Oxygen Saturation [94-100 %] 97 % (11/06/20 12:15 PM) 96 % (11/06/20 12:00 PM) 100 % (11/06/20 11:45 AM) Pulse Rate [55-90 bpm] 68 bpm (11/06/20 8:23 AM) Body Mass Index [18.5-24.99] 30.16 *>HHI* (11/06/20 8:23 AM) 30.16 *>HHI* (10/28/20 10:03 AM) Blood Pressure [90-138/55-84 mm Hg] 148/60mm Hg *H* (11/06/20 12:15 PM) 157/63mm Hg *H* (11/06/20 12:00 PM) 150/57mm Hg *H* (11/06/20 11:45 AM) Respiratory Rate [16-30 br/min] 16 br/min (11/06/20 12:18 PM) 9 br/min *L* (11/06/20 12:15 PM) 11 br/min *L* (11/06/20 12:00 PM) Temperature [96.8-100.4 DegF] 98.4 DegF (11/06/20 11:45 AM) 97.8 DegF (11/06/20 11:00 AM) 99.2 DegF (11/06/20 8:23 AM) Liters per Minute 2 L/min (11/06/20 11:15 AM) 5 L/min (11/06/20 11:00 AM) Mode of Delivery (Oxygen) Room air (11/06/20 11:45 AM) Nasal cannula (11/06/20 11:15 AM) Simple face mask (11/06/20 11:00 AM) Blood pressure sites Arm, left (11/06/20 11:00 AM) Arm, left (11/06/20 8:23 AM) Temperature Route Temporal (11/06/20 11:45 AM) Temporal (11/06/20 11:00 AM) Temporal (11/06/20 8:23 AM) Dry Weight 82.2 kg (10/28/20 10:03 AM) Weight Obtained Via Patient/family state d (10/28/20 10:03 AM) Dry Weight Obtained Via Patient/family s tated (10/28/20 10:03 AM) Social History Social History Type Response Smoking Status Never (less than 100 in lifetime) entered on: 07/11/20 Sex
--- OUTSIDE RECORDS SUMMARY | 2024-04-11 07:46 | XMS_ITS | Continuity of Care Document ---
Author Organization [facility] Address [address] [place] [address]- Care Team Providers Care Residential Sales Consultant Name Role Phone Idania MCDONNELL, Wing Gutierrez Primary Care Physician Encounter [facility] [place](s): 01/19/21 - 02/18/21 [facility] [address] [place], [place] [address] Allergies, Adverse Reactions, Alerts Substance Reaction Severity Status sulfa drugs Stomach pain Active Levaquin Allergy to sulfa drugs Activ e Darvocet-N 100 Allergy to sulfa drugs Act laura Medications albuterol 90 mcg/inh inhalation powder 2 puffs, Inhalation, Every 6 hours, PRN as needed, # 1 each, 0 Refills, Maintenance, 12/26/19 6:43:00 EST, Powder Start Date: 12/26/19 Status: Ordered amiodarone 200 mg oral tablet 100 mg, 0.5, tablet, By Mouth, Daily, # 90 tablet, Refills 0, Maintenance, 12/26/19 6:43:00 EST Start Date: 12/26/19 Status: Ordered atorvastatin 20 mg oral tablet [...] 6:44:00 EST Start Date: 12/26/19 Status: Ordered levothyroxine 25 mcg (0.025 mg) [...] 08/05/20 9:07:00 EDT, Route to Pharmacy Electronically, [id number], 157.7, cm, 07/14/20 14:27:00 EDT, Height, 85.2, [...] Refills, Maintenance, 11/06/20 10:56:00 EST, REC Powder, [facility] #[id number], Partial fill upon patient request if [...] Replace Required Details, Route to Pharmacy Electronically, [id number], 165.1, cm, 12... Start Date: 11/03/20 Status: [...] 10:56:00 EST, [id number] fill[facility] patient request, 165.1, cm, 11/06/20 8:23:00 E... Start Date: 11/06/20 Status: Ordered prochlorperazine 10 mg oral tablet 1 tablet = 10 mg, By Mouth, Every 6 hours, PRN Nausea, # 30 tablet, 2 Refills, Maintenance, 08/27/20 15:33:00 EDT, Tablet, [facility] #[id number], 157.7, cm, 08/27/20 9:55:00 EDT, Height, 88, kg, 08/27/20 9:55:00 EDT, Dry Weight Start Date: 08/27/20 Status: Ordered Smoothie Readi-Cat 2 oral suspension See Instructions, If scan in the am, drink 1st bottle night before & 2nd bottle 90 min before scan. If scan after 12p, drink 1st bottle by 8a & 2nd bottle 90 min before. If scan after 4p, drink 1st bottle 6hrs before & 90 minutes before scan, # 2 each... Start Date: 01/20/21 Status: Ordered traMADol 50 mg oral tablet 1 tablet = 50 mg, By Mouth, Every 12 hours, PRN for pain, # 30 tablet, 0 Refills, Maintenance, 12/26/19 6:46:00 EST, Tablet Start Date: 12/26/19 Status: Ordered valsartan 80 mg oral tablet [...] Cardiomyopathy(Confirmed) Active Diabetes mellitus(Confirmed) Active Fibromyalgia(Confirmed) Active Ventral hernia(Confirmed) Active Recurrent incisional hernia(Confirmed) Active Endometrial cancer(Confirmed) Active Osteopenia(Confirmed) Active Peripheral edema(Confirmed) Active Vaginal lesion(Confirmed) Active Social History Social History Type Response Smoking Status Never (less than 100 in lifetime) entered on: 07/11/20 Sex
--- OUTSIDE RECORDS SUMMARY | 2024-04-11 07:46 | XMS_ITS | Continuity of Care Document ---
Author Organization [facility] Hanh Arce Address [address] [place] [address], 4[address] [place] [address]- Care Team Providers Care Spray Machine Operator Name Role Phone Wing Emerson MD Primary Care Physician [phone] Encounter [facility] [place] Date(s): 08/01/20 - 09/03/20 [facility] [address] [facility], 4th [place] [address]- [facility] Attending Physician: Shirin Bowers MD Admitting Physician: Shirin Bowers MD Referring Physician: Wing Emerson MD Allergies, Adverse Reactions, Alerts Substance Reaction Severity Status sulfa drugs Active Levaquin Allergy to sulfa drugs Activ [...] mg, By Mouth, 3 times a day, 0 Refills, Maintenance, 12/26/19 6:43:00 EST Start [...] mg oral tablet 1, capsule, By Mouth, Once, # 1 tablet, Refills 0, Maintenance, 12/26/19 6:44:00 EST Start Date: 12/26/19 Status: Ordered levonorgestrel 52 mg intrauterine device 1 each = 52 mg, Intrauterine, Once, # 1 each, 0 Refills, Soft Stop, 07/14/20 15:31:00 EDT, [facility], 157.7, cm, 07/14/20 14:27:00 EDT, Height, [...] 08/05/20 9:07:00 EDT, Route to Pharmacy Electronically, [id number], 157.7, cm, 07/14/20 14:27:00 EDT, Height, 85.2, kg, 07/14/20 14:27:00 EDT, Dry Weight Start Date: 08/05/20 Status: Ordered MiraLax = 17 Gm, By Mouth, Daily, 0 Refills, Maintenance, 08/06/20 10:01:00 EDT Start Date: 08/06/20 Status: Ordered Multivitamin Daily, 0 Refills, Maintenance, 08/06/20 10:01:00 EDT Start Date: 08/06/20 Status: Ordered omeprazole 20 mg oral delayed release tablet 1 tablet = 20 mg, By Mouth, Daily, # 30 tablet, 0 Refills, Maintenance, 12/26/19 6:45:00 EST, CR Tablet Start Date: 12/26/19 Status: Ordered oxyCODONE 5 mg oral tablet 5 mg, 1, tablet, By Mouth, Every 6 hours, PRN, # 20 tablet, Refills 0, Tot. Refills 0, Acute 09/18/20 0:15:00 EST, as needed for pain, 08/31/20 16:45:00 EST, Route to Pharmacy Electronically, [facility]acy #[id number], Partial fill upon patient request, 157.... Start Date: 08/31/20 Stop Date: 09/18/20 Status: Ordered prochlorperazine 10 mg oral tablet 1 tablet = 10 mg, By Mouth, Every 6 hours, PRN Nausea, # 30 tablet, 2 Refills, Maintenance, 08/27/20 15:33:00 EDT, Tablet, [facility]/pharmacy #[id number], 157.7, cm, 08/27/20 9:55:00 EDT, Height, 88, kg, 08/27/20 9:55:00 EDT, Dry Weight Start Date: 08/27/20 Status: Ordered Senna 8.6 mg oral tablet 17.2 mg, 2, tablet, By Mouth, Daily at bedtime, PRN, # 100 tablet, Refills 0, Tot. Refills 0, Maintenance, for constipation, 08/27/20 15:33:00 EDT, Route to Pharmacy Electronically, [facility]acy #[id number] Tablet, 157.7, cm, 08/27/20 9:55:00 EDT, Height, 8... Start Date: 08/27/20 Status: Ordered Smoothie Readi-Cat 2 oral suspension See Instructions, If scan in the am, drink 1st bottle night before & 2nd bottle 90 min before scan. If scan after 12p, drink 1st bottle by 8a & 2nd bottle 90 min before. If scan after 4p, drink 1st bottle 6hrs before & 90 minutes before scan, # 2 each... Start Date: 07/31/20 Status: Ordered traMADol 50 mg oral tablet [...] Health Status Inform ant Atrial fibrillation(Confirmed) Active Cardiomyopathy(Confirmed) Active Diabetes mellitus(Confirmed) Active Fibromyalgia(Confirmed) Active Stress incontinence(Confirmed) Active Ventral hernia(Confirmed) Active Endometrial cancer(Confirmed) Active Osteopenia(Confirmed) Active Peripheral edema(Confirmed) Active Vaginal lesion(Confirmed) Active Social History Social History Type Response Smoking Status Never (less than 100 in lifetime) entered on: 07/11/20 Sex
--- OUTSIDE RECORDS SUMMARY | 2024-04-11 07:46 | XMS_ITS | Continuity of Care Document ---
Author Organization [facility] Address [address] [place] [address]- [place] [facility] [place] 06/[place]23 - 10/07/23 [facility] [address] [place], [place] [address] Attending Physician: Karena Chamorro MD Admitting Physician: Karena Chamorro MD Allergies, Adverse Reactions, Alerts Substance Reaction Severity Status sulfa drugs Stomach pain Active Levaquin Allergy to sulfa drugs Activ e Darvocet-N 100 Allergy to sulfa drugs Act laura Medications albuterol 90 mcg/inh inhalation powder 2 puffs, Inhalation, Every 6 hours, PRN as needed, # 1 each, 0 Refills, Maintenance, 12/26/19 6:43:00 EST, Powder Start Date: 12/26/19 Status: Ordered alendronate 70 mg oral tablet 1 tablet = 70 mg, By Mouth, Every week, # 4 tablet, 0 Refills, Maintenance, 06/04/22 13:38:00 EDT, Tablet, Partial fill upon patient request if the prescription is for a schedule II opioid drug. Start Date: 06/04/22 Status: Ordered amiodarone 200 mg oral tablet 100 mg, 0.5, tablet, By Mouth, Daily, # 90 tablet, Refills 0, Maintenance, 12/26/19 6:43:00 EST Start Date: 12/26/19 Status: Ordered atorvastatin 20 mg oral tablet 1 tablet = 20 mg, By Mouth, Daily, # 30 tablet, 0 Refills, Maintenance, 12/26/19 6:43:00 EST, Tablet Start Date: 12/26/19 Status: Ordered atropine-diphenoxylate 0.025 mg-2.5 mg oral tablet 1, tablet, By Mouth, 4 times a day, PRN, Refills 0, Maintenance, for loose stool, 06/04/22 13:38:00EDT, Tablet, Partial fill upon patient request if the prescription is for a schedule II opioid drug. Start Date: 06/04/22 Status: Ordered carvedilol 12.5 mg oral tablet 12.5 mg, 1, tablet, By Mouth, 2 times a day, # 60 tablet, Refills 0, Maintenance, 11/24/22 12:08:00EST, Partial fill upon patient request if the prescription is for a schedule II opioid drug. Start Date: 11/24/22 Status: Ordered clonazePAM 2 mg oral tablet 1 tablet = 2 mg, By Mouth, 3 times a day, PRN Anxiety, 0 Refills, Maintenance, 12/26/19 6:43:00 EST Start Date: 12/26/19 Status: Ordered furosemide 20 [...] 6:45:00 EST Start Date: 12/26/19 Status: Ordered Multivitamin Daily, 0 Refills, Maintenance, 08/06/20 10:01:00 EDT Start Date: 08/06/20 Status: Ordered omeprazole 20 mg oral delayed release tablet 1 tablet = 20 mg, By Mouth, Daily, # 30 tablet, 0 Refills, Maintenance, 12/26/19 6:45:00 EST, CR Tablet Start Date: 12/26/19 Status: Ordered traMADol 50 mg oral tablet [...] Date: 12/26/19 Status: Ordered Problem List Condition Confirmation Course Effective Dates Status H ealth Status Informant Atrial fibrillation Confirmed Active Bone pain Confirmed Active Cardiomyopathy Confirmed Active Diabetes mellitus Confirmed Active Fibromyalgia Confirmed Active Ventral hernia Confirmed Active Recurrent incisional hernia Confirmed Active Endometrial cancer Confirmed Active Osteopenia Confirmed Active Peripheral edema Confirmed Active Severe obesity (BMI 35.0-39.9) with comorbidity Confirmed Active Vaginal bleeding Confirmed Active Vaginal lesion Confirmed Active Social History Social History Type Response Smoking Status Never (less than 100 in lifetime) entered on: 07/11/20 Sex Patient Care team information Care Team Personnel Name: Blanca Garcia [place] Position: S Onco RN Member Role: Primary Care Nurse Name: Katia Cervantes RN Position: S RN Member Role: Primary Care Nurse Care Team Related Persons Name: LISA CAO Address: home [address] [place] [id number]
--- OUTSIDE RECORDS SUMMARY | 2024-04-11 07:46 | XMS_ITS | Continuity of Care Document ---
Author Organization [facility] Address [address] [place] [address]- Care Team Providers Care In Flight Technician Name Role Phone Wing Emerson MD Primary Care Physician [place] [facility] [place] Date(s): 07/23/20 - 08/22/20 [facility] [address] [place] [address]- [facility] Allergies, Adverse Reactions, Alerts Substance Reaction Severity [...] 0 Refills, Soft Stop, 07/14/20 15:31:00 EDT, [facility], 157.7, cm, 07/14/20 14:27:00 EDT, Height, [...] 08/05/20 9:07:00 EDT, Route to Pharmacy Electronically, [id number], 157.7, cm, 07/14/20 14:27:00 EDT, Height, 85.2, [...] CR Tablet Start Date: 12/26/19 Status: Ordered Smoothie Readi-Cat 2 oral suspension [...]
--- OUTSIDE RECORDS SUMMARY | 2024-04-11 07:46 | XMS_ITS | Continuity of Care Document ---
Author Organization [facility] Address [address] [place] [address]- Care Team Providers Care Printing Film Stripper Name Role Phone Wing Emerson MD Primary Care Physician Encounter [facility] Date(s): 06/08/22 - 07/08/22 [facility] Oncology [address] [place] [id number] Allergies, Adverse Reactions, Alerts Substance Reaction Severity [...] opioid drug. Start Date: 06/04/22 Status: Ordered clonazePAM 2 mg oral tablet [...] 6:45:00 EST Start Date: 12/26/19 Status: Ordered mesalamine 1000 mg rectal suppository 1 supp = 1,000 mg, Rectally, Daily at bedtime, # 30 supp, 1 Refills, Maintenance, 06/04/22 13:59:00EDT, [facility]/pharmacy #[id number], Partial fill upon patient request if the prescription is for a schedule IIopioid drug., 157.7, cm, 06/04/22 13:24:00 EDT, Tena... Start Date: 06/04/22 Stop Date: 08/03/22 Status: Ordered MiraLax oral powder for reconstitution = 17 Gm, By Mouth, Daily, dissolve in water before taking, # 255 Gm, 0 Refills, Maintenance, 11/06/20 10:56:00 EST, REC Powder, [facility]/pharmacy #[id number], Partial fill upon patient request if the prescription is for a schedule II opioid drug., 17 Gm By Mouth... Start Date: 11/06/20 Status: Ordered Multivitamin Daily, 0 Refills, Maintenance, [...] Recurrent incisional hernia(Confirmed) Active Endometrial cancer(Confirmed) Active Obese class I(Confirmed) Active Osteopenia(Confirmed) Active Peripheral edema(Confirmed) Active Vaginal lesion(Confirmed) Active Social History Social History Type Response Smoking Status Never (less than 100 in lifetime) entered on: 07/11/20 Sex Care Team Personnel Name: Wing Emerson MD Address: [address] [place] [address]
--- OUTSIDE RECORDS SUMMARY | 2024-04-11 07:46 | XMS_ITS | Continuity of Care Document ---
Author Organization [facility] Address [address] [facility] [place] [address]- Care Team Providers Care Pmo Manager Name Role Phone Idania MCDONNELL, Wing Gutierrez Primary Care Physician Encounter 08/04/20 - 08/11/20 [facility] [address], [address] [place] [address]- [phone] Attending Physician: Karena Chamorro MD Admitting Physician: Karena Chamorro MD Referring Physician: Karena Chamorro MD Allergies, Adverse Reactions, [...] 0 Refills, Soft Stop, 07/14/20 15:31:00 EDT, [facility], 157.7, cm, 07/14/20 14:27:00 EDT, [...] 08/05/20 9:07:00 EDT, Route to Pharmacy Electronically, [facility] [id number], 157.7, cm, 07/14/20 14:27:00 EDT, Height, 85.2, [...]
--- OUTSIDE RECORDS SUMMARY | 2024-04-11 07:46 | XMS_ITS | Continuity of Care Document ---
Author Organization [facility] Address [address] [place] [address], [address] [place] [address]- Care Team Providers Care Adobe Ball Mixer Name Role Phone Idania MCDONNELL, Wing Gutierrez Primary Care Physician En[place] [facility] [place] Date(s): 10/30/20 - 11/29/20 [facility] [address] [facility], 4th Floor [place], [place] [address] Allergies, Adverse Reactions, Alerts Substance Reaction Severity [...] 0 Refills, Soft Stop, 07/14/20 15:31:00 EDT, [facility], 157.7, cm, 07/14/20 14:27:00 [...] 9:07:00 EDT, Route to Pharmacy Electronically, [id number], 157.7, cm, 07/14/20 14:27:00 EDT, Height, 85.2, [...] Maintenance, 11/06/20 10:56:00 EST, REC Powder, [facility]/pharmacy #[id number], Partial fill upon patient request if [...] Replace Required Details, Route to Pharmacy Electronically, [facility] 09647, 165.1, cm, 12... Start Date: 11/03/20 Status: [...] Route to Pharmacy Electronically, [facility]/pharmacy #[id number], Partial fillupon patient request, 165.1, cm, 11/06/20 8:23:00 E... Start Date: 11/06/20 Status: Ordered prochlorperazine 10 mg oral tablet 1 tablet = 10 mg, By Mouth, Every 6 hours, PRN Nausea, # 30 tablet, 2 Refills, Maintenance, 08/27/20 15:33:00 EDT, Tablet, [facility]/pharmacy #[id number], 157.7, cm, 08/27/20 9:55:00 EDT, Height, 88, kg, 08/27/20 9:55:00 EDT, Dry Weight Start Date: 08/27/20 Status: Ordered Senna S 50 mg-187 mg oral tablet 2 tablet, By Mouth, Daily at bedtime, # 30 tablet, 0 Refills, Maintenance, 11/06/20 10:56:00 EST, Tablet, [facility]/pharmacy #[id number], Partial fill upon patient request if the [...] Route to Pharmacy Electronically, [facility]/pharmacy #[id number], Partial anneliese... Start Date: 11/06/20 Status: Ordered [...]
--- OUTSIDE RECORDS SUMMARY | 2024-04-11 07:47 | XMS_ITS | Continuity of Care Document ---
Author Organization [facility] Address [address] [place] [address]- Care Team Providers Care Director Digital Sales Name Role Phone Idania MCDONNELL, Wing Gutierrez Primary Care Physician [place] [facility] [place] - 02/19/21 [facility] Oncology [address] [place], [place] [address] Allergies, Adverse Reactions, Alerts Substance Reaction Severity [...] 08/05/20 9:07:00 EDT, Route to Pharmacy Electronically, [facility] [address]1551, 157.7, cm, 07/14/20 14:27:00 EDT, Height, 85.2, [...] Refills, Maintenance, 11/06/20 10:56:00 EST, REC Powder, [facility]/pharmacy #[id number], Partial fill upon patient request [...] Replace Required Details, Route to Pharmacy Electronically, [facility] [id number], 165.1, cm, 12... Start Date: 11/03/20 Status: [...] 11/06/20 10:56:00 EST, [id number] fillupon patient request, 165.1, cm, 11/06/20 8:23:00 E... Start Date: 11/06/20 Status: Ordered prochlorperazine 10 mg oral tablet 1 tablet = 10 mg, By Mouth, Every 6 hours, PRN Nausea, # 30 tablet, 2 Refills, Maintenance, 08/27/20 15:33:00 EDT, Tablet, [facility]/pharmacy #[id number], 157.7, cm, 08/27/20 9:55:00 EDT, [...]
--- OUTSIDE RECORDS SUMMARY | 2024-04-11 07:47 | XMS_ITS | Continuity of Care Document ---
Author Organization [facility] Address [address] [place] [address]- Care Team Providers Care Department Administrator Name Role Phone Wing Emerson MD Primary Care Physician [place] [facility] [place]16[place] 10[place]16/20 [facility] Oncology [address] [place] [id number] Allergies, Adverse Reactions, Alerts Substance [...] 0 Refills, Soft Stop, 07/14/20 15:31:00 EDT, [facility], 157.7, cm, 07/14/20 14:27:00 EDT, [...] 08/05/20 9:07:00 EDT, Route to Pharmacy Electronically, [facility] ST[facility] 69211, 157.7, cm, 07/14/20 14:27:00 EDT, Height, 85.2, kg, 07/14/20 14:27:00 EDT, Dry Weight Start Date: 08/05/20 Status: Ordered MiraLax = 17 Gm, By Mouth, Daily, 0 Refills, Maintenance, 08/06/20 10:01:00 EDT Start Date: 08/06/20 Status: Ordered montelukast 10 mg oral tablet See Instructions, TAKE 1 TABLET BY MOUTH AT BEDTIME FOR 2 NIGHTS BEFORE CHEMO AND CONTINUE FOR 3 NIGHTS AFTER, # 30 tablet, Refills 0, Maintenance, Instructions Replace Required Details, Route to Pharmacy Electronically, [facility] 92749, 157.1, cm, 12... Start Date: 10/08/20 Status: Ordered Multivitamin Daily, 0 Refills, Maintenance, 08/06/20 10:01:00 EDT Start Date: 08/06/20 Status: Ordered omeprazole 20 mg oral delayed release tablet 1 tablet = 20 mg, By Mouth, Daily, # 30 tablet, 0 Refills, Maintenance, 12/26/19 6:45:00 EST, CR Tablet Start Date: 12/26/19 Status: Ordered oxyCODONE 5 mg oral tablet 5 mg, 1, tablet, By Mouth, Every 6 hours, PRN, # 30 tablet, Refills 0, Tot. Refills 0, Maintenance,as needed for pain, 09/24/20 10:02:00 EST, Route to Pharmacy Electronically, [facility]/pharmacy #[id number], Partial fill upon patient request, 157.7, cm, 09/18/20... Start Date: 09/24/20 Status: Ordered prochlorperazine 10 mg oral tablet 1 tablet = 10 mg, By Mouth, Every 6 hours, PRN Nausea, # 30 tablet, 2 Refills, Maintenance, 08/27/20 15:33:00 EDT, Tablet, [facility]/pharmacy #[id number], 157.7, cm, 08/27/20 9:55:00 EDT, Height, 88, kg, 08/27/20 9:55:00 EDT, Dry Weight Start Date: 08/27/20 Status: Ordered Senna 8.6 mg oral tablet 17.2 mg, 2, tablet, By Mouth, Daily at bedtime, PRN, # 100 tablet, Refills 0, Tot. Refills 0, Maintenance, for constipation, 08/27/20 15:33:00 EDT, Route to Pharmacy Electronically, [facility]/pharmacy #[id number] Tablet, 157.7, cm, 08/27/20 9:55:00 [...]
--- OUTSIDE RECORDS SUMMARY | 2024-04-11 07:47 | XMS_ITS | Continuity of Care Document ---
Author Organization [facility] Address [address] [place] [address]- Care Team Providers Care Ecommerce Marketing Specialist Name Role Phone Wing Emerson MD Primary Care Physician Encounter [facility] [place] Date(s): 02/09/21 - 03/19/[address] [address] Attending Physician: Arsenio Barbour MD Admitting Physician: Arsenio Barbour MD Referring Physician: Arsenio Barbour MD Allergies, Adverse Reactions, Alerts Substance Reaction [...] 08/05/20 9:07:00 EDT, Route to Pharmacy Electronically, [facility] [address]03, 157.7, cm, 07/14/20 14:27:00 EDT, Height, 85.2, [...] Refills, Maintenance, 11/06/20 10:56:00 EST, REC Powder, [facility]/pharmacy #[id number], Partial fill upon patient request if [...] Replace Required Details, Route to Pharmacy Electronically, [facility] [address]35[address], 165.1, cm, 12... Start Date: 11/03/20 Status: [...] 11/06/20 10:56:00 EST, Route to Pharmacy Electronically, [facility]/pharmacy #[id number], Partial fillupon patient request, 165.1, cm, 11/06/20 8:23:00 E... Start Date: 11/06/20 Status: Ordered prochlorperazine 10 mg oral tablet 1 tablet = 10 mg, By Mouth, Every 6 hours, PRN Nausea, # 30 tablet, 2 Refills, Maintenance, 08/27/20 15:33:00 EDT, Tablet, [facility]/pharmacy #[id number], 157.7, cm, 08/27/20 9:55:00 EDT, Height, [...]
--- OUTSIDE RECORDS SUMMARY | 2024-04-11 07:47 | XMS_ITS | Continuity of Care Document ---
Author Organization [facility] Address [address] [place] [address]- Encounter [facility] [place] Date(s): 06/10/23 - 07/10/23 [facility] Oncology [address] [place], [place] [address] Allergies, Adverse Reactions, Alerts Substance Reaction [...] Team Personnel Name: Blanca Garcia [place] Position: [facility] Onco RN Member Role: Primary Care Nurse Name: Katia Cervantes RN Position: S RN Member Role: Primary Care Nurse Care Team Related Persons Name: LISA CAO Address: home [address] [place] [id number]
--- OUTSIDE RECORDS SUMMARY | 2024-04-11 07:47 | XMS_ITS | Continuity of Care Document ---
Author Organization [facility] Address [address] [place] [address]- Care Team Providers Care Police Communications Dispatcher Name Role Phone Wing Emerson MD Primary Care Physician [phone] [id number] - [facility]11/[facility] [address] [place] [address]- Discharge Disposition: A-D/C Home Attending Physician: Arsenio Barbour MD Admitting Physician: Arsenio Barbour MD Referring Physician: Wing Emerson MD Allergies, Adverse Reactions, Alerts Substance Reaction Severity Status sulfa drugs Stomach pain Active Darvocet-N 100 Allergy to sulfa drugs Act laura Levaquin Allergy to sulfa drugs Activ e Medications albuterol 90 mcg/inh inhalation powder 2 [...] 6:43:00 EST Start Date: 12/26/19 Status: Ordered aspirin 81 mg oral delayed release tablet = 81 mg, By Mouth, Daily, # 180 tablet, 1 Refills, Maintenance, 02/24/23 9:07:00 EDT, EC Tablet, [facility], Partial fill upon patient request if the prescription is for a schedule II opioid drug., 165.1, cm, 02/24/23 6:14:00 EDT, Height... Start Date: 02/24/23 Status: Ordered atorvastatin 20 mg oral tablet [...] CR Tablet Start Date: 12/26/19 Status: Ordered Plavix 75 mg oral tablet 75 mg, 1, tablet, By Mouth, Daily, # 180 tablet, Refills 0, Tot. Refills 0, Maintenance, 02/24/23 9:04:00 EDT, Route to Pharmacy Electronically, [facility], Partial fill upon patient request if the prescription is for a schedule II opioi... Start Date: 02/24/23 Status: Ordered traMADol 50 mg oral tablet [...] hernia Confirmed Active Endometrial cancer Confirmed Active Obese class I Confirmed Active Osteopenia Confirmed Active Peripheral edema Confirmed Active Vaginal lesion Confirmed Active Results Orders for Microbiology Reports Name Date Urine Culture 12/17/22 Microbiology Reports TEST:Urine Culture STATUS:Auth (Verified) BODY SITE: SOURCE:URINE COLLECTED DATE/TIME:12/17/22 2:30 PM Urine Culture SPECIMEN DESCRIPTION : URINE CLEAN CATCH/MIDSTREAM SPECIAL REQUESTS : NONE CULTURE : NO GROWTH REPORT STATUS : FINAL 12/18/2022 Vital Signs Most recent to oldest [Reference Range]: 1 Height 162 cm (12/17/22 1:41 PM) Weight 84.9 kg (12/17/22 1:41 PM) Oxygen Saturation [94-100 %] 97 % (12/17/22 1:41 PM) Pulse Rate [55-90 bpm] 79 bpm (12/17/22 1:41 PM) Body Mass Index [18.5-24.99 kg/m2] 32.35 kg/m2 *>HHI* (12/17/22 1:41 PM) Blood Pressure [90-138/55-84 mm Hg] 143/ 54mm Hg *H* (12/17/22 1:41 PM) Temperature [96.8-100.4 DegF] 98 DegF (12/17/22 1:41 PM) Mode of Delivery (Oxygen) Room air (12/17/22 1:41 PM) Blood pressure sites Arm, right (12/17/22 1:41 PM) Temperature Route Temporal (12/17/22 1:41 PM) Dry Weight 84.9 kg (12/17/22 1:41 PM) Weight Obtained Via Standing scale (12/17/22 1:41 PM) Dry Weight Obtained Via Standing scale (12/17/22 1:41 PM) Social History Social History Type Response Smoking Status Never (less than 100 in lifetime) entered on: 07/11/20 Sex Patient Care team information Care Team Personnel Name: Katia Cervantes RN Position: STEVAN RN Member Role: Primary Care Nurse Name: Wing Emerson MD Position: Reference Physician Member Role: PCP Address: Address: [address] [place] [id number]- Care Team Related Persons Name: LISA CAO Address: home [address] [place] [id number]
--- OUTSIDE RECORDS SUMMARY | 2024-04-11 07:47 | XMS_ITS | Continuity of Care Document ---
Author Organization [facility] JEWEL STRIPPER Oncolog y Address [address] [place] [address]- Care Team Providers Care Mat Cleaning Machine Operator Name Role Phone Wing Emerson MD Primary Care Physician [phone] [place] [facility] [place]12[place]20 [place] 10/12/20 [facility] JEWEL STRIPPER Oncology [address] [place] [id number] Allergies, Adverse Reactions, Alerts Substance Reaction [...] 0 Refills, Soft Stop, 07/14/20 15:31:00 EDT, [facility], 157.7, cm, 07/14/20 14:27:00 [...] 08/05/20 9:07:00 EDT, Route to Pharmacy Electronically, [id number], 157.7, cm, 07/14/20 14:27:00 EDT, Height, 85.2, [...] Replace Required Details, Route to Pharmacy Electronically, [facility] 315[facility], 157.1, cm, 12... Start Date: 10/08/20 Status: [...] 09/24/20 10:02:00 EST, Route to Pharmacy Electronically, [facility]/pharmacy #[id number], Partial fill upon patient request, 157.7, cm, 09/18/20... Start Date: 09/24/20 Status: Ordered prochlorperazine 10 mg oral tablet 1 tablet = 10 mg, By Mouth, Every 6 hours, PRN Nausea, # 30 tablet, 2 Refills, Maintenance, 08/27/20 15:33:00 EDT, Tablet, [facility]/pharmacy #[id number], 157.7, cm, 08/27/20 9:55:00 EDT, Height, 88, kg, 08/27/20 9:55:00 EDT, Dry Weight Start Date: 08/27/20 Status: Ordered Senna 8.6 mg oral tablet 17.2 mg, 2, tablet, By Mouth, Daily at bedtime, PRN, # 100 tablet, Refills 0, Tot. Refills 0, Maintenance, for constipation, 08/27/20 15:33:00 EDT, Route to Pharmacy Electronically, [facility]/pharmacy #[id number] Tablet, 157.7, cm, 08/27/20 9:55:00 EDT, [...]
--- OUTSIDE RECORDS SUMMARY | 2024-04-11 07:47 | XMS_ITS | Continuity of Care Document ---
Author Organization [facility] Hanh lu [facility] Address [address] [place] [address], [address] [place] [address]- Care Team Providers Care Plastic Printer Name Role Phone Idania MCDONNELL, Wing Gutierrez Primary Care Physician Encounter [facility] [place] ACCT [facility] [id number] Date(s): 11/24/20 - 12/24/20 [facility] Hanh Burkss [facility] [address], [address] [place] [address]- Attending Physician: Admgodfrey, Sri Admitting Physician: Admtr, Sri Referring Physician: Admtr, Ar8 Allergies, Adverse Reactions, Alerts Substance Reaction Severity [...] 0 Refills, Soft Stop, 07/14/20 15:31:00 EDT, [facility], 157.7, cm, 07/14/20 14:27:00 EDT, Height, [...] 08/05/20 9:07:00 EDT, Route to Pharmacy Electronically, [facility] 33092, 157.7, cm, 07/14/20 14:27:00 EDT, Height, 85.2, [...] Refills, Maintenance, 11/06/20 10:56:00 EST, REC Powder, [facility]/pharmacy #[id number], Partial fill upon patient request if [...] Replace Required Details, Route to Pharmacy Electronically, [facility] 88834, 165.1, cm, 12... Start Date: 11/03/20 Status: [...] 11/06/20 10:56:00 EST, Route to Pharmacy Electronically, [facility]/pharmacy #[id number], Partial fillupon patient request, 165.1, cm, 11/06/20 8:23:00 E... Start Date: 11/06/20 Status: Ordered prochlorperazine 10 mg oral tablet 1 tablet = 10 mg, By Mouth, Every 6 hours, PRN Nausea, # 30 tablet, 2 Refills, Maintenance, 08/27/20 15:33:00 EDT, Tablet, [facility]/pharmacy #[id number], 157.7, cm, 08/27/20 9:55:00 EDT, Height, 88, kg, 08/27/20 9:55:00 EDT, Dry Weight Start Date: 08/27/20 Status: Ordered Senna S 50 mg-187 mg oral tablet 2 tablet, By Mouth, Daily at bedtime, # 30 tablet, 0 Refills, Maintenance, 11/06/20 10:56:00 EST, Tablet, [facility]/pharmacy #0621, Partial fill upon patient request if [...] 11/06/20 10:56:00 EST, Route to Pharmacy Electronically, [facility]/pharmacy #[id number], Partial anneliese... Start Date: 11/06/20 Status: Ordered [...]
--- OUTSIDE RECORDS SUMMARY | 2024-04-11 07:47 | XMS_ITS | Continuity of Care Document ---
Author Organization [facility] SPORTS TEACHER Oncolog y Address [address] [place] [address]- Care Team Providers Care Dry Transfer Man Name Role Phone Wing Emerson MD Primary Care Physician [phone] Encounter [facility] [place] Date(s): 12/16/20 - 01/15/21 [facility]ORTS TEACHER Oncology [address] [place] [address]- Allergies, Adverse Reactions, Alerts Substance Reaction Severity [...] 11:20:00 EDT Start Date: 05/22/20 Status: Ordered CVS SENNA LAXATIVE 8.6 MG TAB CVS SENNA LAXATIVE 8.6 MG TAB, 2, tablet, By Mouth, Daily at bedtime, # 100 tablet, 2 Refills, Maintenance, FOR CONSTIPATION., 01/15/21 8:02:00 EDT, 165.1, cm, 01/08/21 10:05:00 EST, Height, 79.3, kg, 12/22/20 13:53:00 EST, Dry Weight Start Date: 01/15/21 Status: Ordered Eliquis 5 mg oral tablet [...] 0 Refills, Soft Stop, 07/14/20 15:31:00 EDT, [facility], 157.7, cm, 07/14/20 14:27:00 EDT, [...] 08/05/20 9:07:00 EDT, Route to Pharmacy Electronically, [facility] 94995, 157.7, cm, 07/14/20 14:27:00 EDT, Height, 85.2, [...] Refills, Maintenance, 11/06/20 10:56:00 EST, REC Powder, [facility]/pharmacy #[id number], Partial fill upon patient request [...] Replace Required Details, Route to Pharmacy Electronically, [facility] 02096, 165.1, cm, 12... Start Date: 11/03/20 Status: [...] 11/06/20 10:56:00 EST, Route to Pharmacy Electronically, [facility]/pharmacy #[id number], Partial fillupon patient request, 165.1, cm, 11/06/20 8:23:00 E... Start Date: 11/06/20 Status: Ordered prochlorperazine 10 mg oral tablet 1 tablet = 10 mg, By Mouth, Every 6 hours, PRN Nausea, # 30 tablet, 2 Refills, Maintenance, 08/27/20 15:33:00 EDT, Tablet, [facility]/pharmacy #[id number], 157.7, cm, 08/27/20 9:55:00 EDT, Height, 88, kg, 08/27/20 9:55:00 EDT, Dry Weight Start Date: 08/27/20 Status: Ordered Senna S 50 mg-187 mg oral tablet 2 tablet, By Mouth, Daily at bedtime, # 30 tablet, 0 Refills, Maintenance, 11/06/20 10:56:00 EST, Tablet, [facility]/pharmacy #0693, Partial fill upon patient request [...] 11/06/20 10:56:00 EST, Route to Pharmacy Electronically, [facility]/pharmacy #[id number], Partial anneliese... Start Date: 11/06/20 Status: [...]
--- OUTSIDE RECORDS SUMMARY | 2024-04-11 07:47 | XMS_ITS | Continuity of Care Document ---
Author Organization [facility] C ancer Care Address [address] [place] [address]- Care Team Providers Care Multifocal Button Grinder Name Role Phone Wing Emerson MD Primary Care Physician [place] [facility] [place](s): 12/17/21 - 03/24/22 [facility] Care [address] [place] [id number] Discharge Disposition: A-D/C Home Attending Physician: Arsenio [...] 6:45:00 EST Start Date: 12/26/19 Status: Ordered MiraLax oral powder for reconstitution = 17 Gm, By Mouth, Daily, dissolve in water before taking, # 255 Gm, 0 Refills, Maintenance, 11/06/20 10:56:00 EST, REC Powder, [facility]/pharmacy #[id number], Partial fill upon patient request if the [...] recent to oldest [Reference Range]: 1 Height 157.7 cm (01/22/22 12:51 PM) Weight 79.3 kg (01/22/22 12:51 PM) Pulse Rate [55-90 bpm] 80 bpm (01/22/22 12:51 PM) Body Mass Index [18.5-24.99] 31.89 *>HHI* (01/22/22 12:51 PM) Blood Pressure [90-138/55-84 mm Hg] 147/ 62mm Hg *H* (01/22/22 12:51 PM) Temperature [96.8-100.4 DegF] 98.7 DegF (01/22/22 12:51 PM) Blood pressure sites Arm, right (01/22/22 12:51 PM) Temperature Route Temporal (01/22/22 12:51 PM) Dry Weight 79.3 kg (01/22/22 12:51 PM) Weight Obtained Via Standing scale (01/22/22 12:51 PM) Dry Weight Obtained Via Standing scale (01/22/22 12:51 PM) Social History Social History Type Response Smoking Status Never (less than 100 in lifetime) entered on: 07/11/20 Sex
--- OUTSIDE RECORDS SUMMARY | 2024-04-11 07:47 | XMS_ITS | Continuity of Care Document ---
Author Organization [facility] C ancer Care Address [address] [place] [address]- Care Team Providers Care Labor Delivery Specialist Name Role Phone Idania MCDONNELL, Wing Gutierrez Primary Care Physician [phone] En[place] [facility] [place] Date(s): 04/20/22 - 05/20/22 [facility] [address] [place] [id number] Attending Physician: AdmSri donahue Admitting Physician: Admtr, Rodo8 Referring Physician: Admtr, Ar8 Allergies, Adverse Reactions, [...] Refills, Maintenance, 11/06/20 10:56:00 EST, REC Powder, [facility]/pharmacy #[id number], Partial fill upon patient request if the [...]
--- OUTSIDE RECORDS SUMMARY | 2024-04-11 07:47 | XMS_ITS | Continuity of Care Document ---
Author Organization [facility] DOCUMENT IMAGING MANAGER Oncolog y Address [address] [place] [address]- Care Team Providers Care Sewage Plant Operator Name Role Phone Wing Emerson MD Primary Care Physician [place] [facility] [place]s): 01/09/21 - 02/08/21 [facility] DOCUMENT IMAGING MANAGER Oncology [address] [place] [id number] Allergies, Adverse Reactions, Alerts Substance [...] EDT, Route to Pharmacy Electronically, [facility] 43223, 157.7, cm, 07/14/20 14:27:00 EDT, Height, 85.2, [...] 11/06/20 10:56:00 EST, REC Powder, [facility]/pharmacy #[id number], Partial fill upon patient [...] Required Details, Route to Pharmacy Electronically, [facility] 63111, 165.1, cm, 12... Start Date: 11/03/20 Status: [...] 11/06/20 10:56:00 EST, [id number] fillupon patient request, 165.1, cm, 11/06/20 8:23:00 E... Start Date: 11/06/20 Status: Ordered prochlorperazine 10 mg oral tablet 1 tablet = 10 mg, By Mouth, Every 6 hours, PRN Nausea, # 30 tablet, 2 Refills, Maintenance, 08/27/20 15:33:00 EDT, Tablet, [facility]/pharmacy #[id number], 157.7, cm, 08/27/20 9:55:00 [...]
--- OUTSIDE RECORDS SUMMARY | 2024-04-11 07:47 | XMS_ITS | Continuity of Care Document ---
Author Organization [facility] MINERAL MIXER Oncolog y Address [address] [place] [address]- Care Team Providers Care Six Sigma Black Belt Engineer Name Role Phone Wing Emerson MD Primary Care Physician [place] [facility] [place] 09/29[place]20 - 10/29/20 [facility] MIXER Oncology [address] [place] [id number] Allergies, Adverse Reactions, Alerts Substance Reaction [...] Refills, Soft Stop, 07/14/20 15:31:00 EDT, [facility], 157.7, cm, 07/14/20 14:27:00 EDT, [...] 6:45:00 EST Start Date: 12/26/19 Status: Ordered Macrobid macrocrystals-monohydrate 100 mg oral capsule 1 capsule = 100 mg, By Mouth, 2 times a day, for 7 days, # 14 capsule, 0 Refills, Acute 10/30/20 9:03:00 EST, 10/23/20 9:03:00 EST, Capsule, [facility]/pharmacy #[id number], Partial fill upon patient request if the prescription is for a schedule II opioid drug., 1... Start Date: 10/23/20 Stop Date: 10/30/20 Status: Ordered medroxyPROGESTERone 10 mg oral tablet 1, tablet, By Mouth, Daily, # 30 tablet, Refills 1, Tot. Refills 0, Maintenance, 08/05/20 9:07:00 EDT, Route to Pharmacy Electronically, [facility]ORE 11811, 157.7, cm, 07/14/20 14:27:00 EDT, Height, 85.2, [...] opioid drug. Start Date: 10/28/20 Status: Ordered montelukast 10 mg oral tablet See Instructions, TAKE 1 TABLET BY MOUTH AT BEDTIME FOR 2 NIGHTS BEFORE CHEMO AND CONTINUE FOR 3 NIGHTS AFTER, # 30 tablet, Refills 0, Maintenance, Instructions Replace Required Details, Route to Pharmacy Electronically, [facility] 93812, 157.1, cm, 12... Start Date: 10/08/20 Status: Ordered Multivitamin Daily, 0 Refills, Maintenance, 08/06/20 10:01:00 EDT Start Date: 08/06/20 Status: Ordered omeprazole 20 mg oral delayed release tablet 1 tablet = 20 mg, By Mouth, Daily, # 30 tablet, 0 Refills, Maintenance, 12/26/19 6:45:00 EST, CR Tablet Start Date: 12/26/19 Status: Ordered prochlorperazine 10 mg oral tablet 1 tablet = 10 mg, By Mouth, Every 6 hours, PRN Nausea, # 30 tablet, 2 Refills, Maintenance, 08/27/20 15:33:00 EDT, Tablet, [facility]/pharmacy #[id number], 157.7, cm, 08/27/20 9:55:00 EDT, Height, 88, kg, 08/27/20 9:55:00 EDT, Dry Weight Start Date: 08/27/20 Status: Ordered traMADol 50 mg oral tablet [...]
--- OUTSIDE RECORDS SUMMARY | 2024-04-11 07:47 | XMS_ITS | Continuity of Care Document ---
Author Organization [facility] Address [address] [place] [address]- Care Team Providers Care Speech Correction Consultant Name Role Phone Idania MCDONNELL, Wing Gutierrez Primary Care Physician [phone] [place] [facility] [place](s): 04/15/23 - 04/15/[address] [address] Discharge Disposition: A-D/C Home Attending Physician: Kulwinder Carolina MD Admitting Physician: Kulwinder Carolina MD Referring Physician: Veronica Barrios MD Allergies, Adverse Reactions, Alerts Substance Reaction [...] Refills, Maintenance, 02/24/23 9:07:00 EDT, EC Tablet, [facility], Partial fill upon patient [...] 02/24/23 9:04:00 EDT, Route to Pharmacy Electronically, [facility], Partial fill upon patient [...] edema Confirmed Active Vaginal lesion Confirmed Active Vital Signs Most recent to oldest [Reference Range]: 1 2 3 Height 165.1 cm (04/15/23 11:18 AM) 165.1 cm (04/15/23 11:06 AM) Weight 85 kg (04/15/23 11:18 AM) 85 kg (04/15/23 11:06 AM) Oxygen Saturation [94-100 %] 99 % (04/15/23 4:17 PM) 100 % (04/15/23 4:10 PM) 100 % (04/15/23 3:15 PM) Pulse Rate [55-90 bpm] 69 bpm (04/15/23 11:02 AM) Blood Pressure [90-138/55-84 mm Hg] 125/83mm Hg (04/15/23 4:17 PM) 116/52mm Hg (04/15/23 4:10 PM) 156/48mm Hg *H* (04/15/23 3:15 PM) Respiratory Rate [16-30 br/min] 15 br/min *L* (04/15/23 4:17 PM) 16 br/min (04/15/23 4:10 PM) 12 br/min *L* (04/15/23 3:15 PM) Temperature [96.8-100.4 DegF] 98.3 DegF (04/15/23 11:02 AM) Mode of Delivery (Oxygen) Room air (04/15/23 4:17 PM) Room air (04/15/23 4:10 PM) Room air (04/15/23 3:15 PM) Blood pressure sites Arm, left (04/15/23 4:17 PM) Arm, left (04/15/23 4:10 PM) Arm, left (04/15/23 3:15 PM) Dry Weight 85 kg (04/15/23 11:06 AM) Social History Social History Type Response Smoking Status Never (less than 100 in lifetime) entered on: 07/11/20 Sex US Heart Transesophageal * Event Display: Trans-esophageal Echocardiogram Authored Date: [id number] Transesophageal Echocardiography Report (ALVERTO) Patient Demographics Patient Name FIONA CAO Date of Study 04/15/2023 Corporate Gender Female Facility Race Ethnicity Date of 1950 Height: 64.96 inches Age 72 year(s) Weight: 187.39 pounds Accession Number [id number] BSA: 1.92 m2 Room Number [id number] BMI: 31.22 kg/m2 Referring Physician Veronica Barrios MD Interpreting Physician Kulwinder Carolina MD Systems Architecture Analyst Indications Other. Additional Indications:45 Day surveillance ALVERTO following Watchman implant Study Data Type of Study ALVERTO procedure:ALVERTO with Doppler and Colorflow. Procedure Information:The procedure, including risks and benefits, was explained to the patient and informed consent was obtained. Time out was performed pre-procedure. The transesophageal probe was inserted by the attending railcar carpenter. There were no complications. Study Date04/15/2023 Start Time: 03:29 PM Study Location: CARE UNIT Study Status: ALVERTO Suite Patient Status: Routine Technical Quality: Good Blood Pressure:156/48 mmHg EKG: Paced HR: 61 bpm ALVERTO Performed By: Kulwinder Carolina MD Type of Anesthesia: Anesthesia administered by anesthesiologist. Allergies - Sulfa drugs. - Levaquin. - Other allergy:(darvocet). 2D Measurements AO Root Dimension: 2.8 cm LVOT Stroke Volume: 74.25 ml Stroke Volume Index38.67 ml/m2 LVOT: 1.9 cm Cardiac Index:2.36 l/min/m2 Ascending Aorta:3 cm Doppler Measurements AV Peak Velocity: 193 cm/s AV Peak Gradient: 14.9 mmHg AV Mean Gradient: 8 mmHg AV VTI:45.1 cm LVOT Peak Velocity: 98 cm/s LVOT VTI26.2 cm AV Area (Continuity):1.65 cm2 Cardiac Anatomy Left Ventricle/Interventricular Septum The left ventricular size is normal. Normal LV systolic function. Ejection fraction is 55-60%. Left Atrium/Interatrial Septum A 31 mm Watchman FLX device is visualized in the left atrial appendage and appears well-seated without evidence of thrombus. No peridevice leak visualized. There is no atrial septal defect visualized by color flow Doppler. Aortic Valve The aortic valve is trileaflet . The aortic valve appears mildly thickened and calcified. There is aortic regurgitation. There is mild aortic annular calcification. The aortic velocity is minimally increased consistent with aortic sclerosis, without stenosis. Mitral Valve The mitral valve opening is normal. There is trivial to mild mitral regurgitation. There is no mitral stenosis. Aorta There is moderate plaque in the descending aorta . There is moderate plaque in the aortic arch . The ascending aorta and aortic root are normal in size. Right Ventricle The right ventricle is normal in size and function. A pacer/ICD wire is seen in the right ventricle. Right Atrium There is no mass or thrombus in the right atrium. Right atrial pacemaker lead is present. Pulmonic Valve The pulmonic valve is poorly visualized. There is trace pulmonic regurgitation. Tricuspid Valve The tricuspid valve leaflet opening is normal. There is trace tricuspid valve regurgitation. Pumonary Artery An accurate pulmonary artery pressure could not be obtained. Venous Structures There is normal pulmonary venous flow. Pericardium/Extracardiac There is a pericardial effusion seen abutting the right ventricle and right atrium. Appears moderate in size on transgastric views, and small to moderate in size near the right atrium. Appears small in size on four-chamber views. No evidence of cardiac tamponade. Summary A 31 mm Watchman FLX device is visualized in the left atrial appendage and appears well-seated without evidence of thrombus. No peridevice leak visualized. There is no atrial septal defect visualized by color flow Doppler. There is a pericardial effusion seen abutting the right ventricle and right atrium. Appears moderate in size on transgastric views, and small to moderate in size near the right atrium. Appears small in size on four-chamber views. No evidence of cardiac tamponade. The left ventricular size is normal. Normal LV systolic function. Ejection fraction is 55-60%. The right ventricle is normal in size and function. A pacer/ICD wire is seen in the right ventricle. An accurate pulmonary artery pressure could not be obtained. There is no hemodynamically significant valvular disease. See remainder of report for additional details. Comparison Comparison is made to the ALVERTO studies of February 23, 2023. Patient is now s/p Watchman implant. Pericardial effusion does appears moderate in size on trans-gastric views, without evidence of cardiac tamponade. Based on 4 chamber view, side by side visual comparison, the effusion is unchanged in size. Findings communicated to Dr. Barrios by cortext. Signature * Event Display: Trans-esophageal Echocardiogram Authored Date: [id number] [facility] Progress note * Charlie SOLOMON, Kulwinder: MODIFY, SIGN, PERFORM, SIGN, VERIFY Event Display: Progress Note Hospital Authored Date: Patient: FIONA CAO Age: 72 years Sex: Female : 1950 Associated Diagnoses: None Author: Kulwinder Guerra RN Findings Evaluation Patient arrived to unit, VSS. #20 IV inserted in right AC. Medical daytstay assessment, home med review, and pre-procedure checklist completed. Resting comfortably awaiting procedure. Will continue to monitor. . * Kulwinder Guerra RN: PERFORM Event Display: Progress Note Hospital Authored Date: Returned from procedure, VSS. Denies any numbness in throat, +gag reflex, tolerating PO. Denies anydifficulty swallowing. No signs or symptoms of bleeding. IV d/c'd. Discharge instructions reviewed and signed. Questions asked and answered. Discharged from unit via wheelchair. Note * Kulwinder Guerra RN: PERFORM Event Display: Discharge/Transfer Note Hospital Authored Date: Nursing Discharge Note Entered On: 04/15/2023 17:54 EDT Performed On: 04/15/2023 17:54 EDT by Kulwinder Guerra RN Nursing Discharge Note 2 Discharge Time : 04/15/2023 17:54 EDT Discharge Level of Care at Discharge : Home/Half-Way/Foster Care Patient Left Unit Via : Wheelchair Patient Accompanied Off Unit with : Responsible adult DC Instructions Provided & Signed by Pt : Yes Patient Understands D/C Instructions : Yes Patient Instructions Discharge Signed : Yes Did Pt have Specialty Bed or Wound Vac : No Kulwinder Guerra RN - 04/15/2023 17:54 EDT Patient Care team information Care Team Personnel Name: Katia Cervantes RN Position: S RN Member Role: Primary Care Nurse Name: Wing Emerson MD Position: Reference Physician Member Role: PCP Address: Address: [address] [address]- Care Team Related Persons Name: LISA COA Address: home [address] [place] [id number]
--- OUTSIDE RECORDS SUMMARY | 2024-04-11 07:47 | XMS_ITS | Continuity of Care Document ---
Author Organization [facility] HISTOPATH TECH Oncolog y Address [address] [place] [address]- Care Team Providers Care Glass Furnace Tender Name Role Phone Wing Emerson MD Primary Care Physician Encounter [facility] Date(s): 04/15/22 - 08/13/22 [facility] HISTOPATH TECH Oncology [address] [place] [id number] Attending Physician: Karena Chamorro MD Admitting Physician: Karena Chamorro MD Referring Physician: Wing Emerson MD Allergies, [...] 30 supp, 1 Refills, Maintenance, 06/04/22 13:59:00EDT, [facility]/pharmacy #[id number], Partial fill upon patient request if the prescription is for a schedule IIopioid drug., 157.7, cm, 06/04/22 13:24:00 EDT, Hecaitlyn... Start Date: 06/04/22 Stop Date: 08/03/22 Status: Ordered MiraLax oral powder for reconstitution = 17 Gm, By Mouth, Daily, dissolve in water before taking, # 255 Gm, 0 Refills, Maintenance, 11/06/20 10:56:00 EST, REC Powder, [facility]/pharmacy #[id number], Partial fill upon patient request if the [...] before scan, # 2 each... Start Date: 07/21/22 Status: Ordered traMADol 50 mg oral tablet [...] edema Confirmed Active Vaginal lesion Confirmed Active Social History Social History Type Response Smoking Status Never (less than 100 in lifetime) entered on: 07/11/20 Sex Patient Care team information Personnel Name: Idania MCDONNELL, Wing Gutierrez Address: Address: [address] [place] [id number]
--- OUTSIDE RECORDS SUMMARY | 2024-04-11 07:47 | XMS_ITS | Continuity of Care Document ---
Author Organization [facility] Address [address] [place] [address] [address] [place] [address]- Care Team Providers Care Heel Cover Softener Name Role Phone Idania MCDONNELL, Wing Gutierrez Primary Care Physician [place] [facility] [place] 10/08/20 - 10/15/20 [facility] [address] [place], [place] [address] Attending Physician: Marques Miranda MD Referring Physician: Karena Chamorro MD Allergies, [...] 0 Refills, Soft Stop, 07/14/20 15:31:00 EDT, [facility], 157.7, cm, 07/14/20 14:27:00 EDT, [...] 08/05/20 9:07:00 EDT, Route to Pharmacy Electronically, [facility] 69765, 157.7, cm, 07/14/20 14:27:00 EDT, Height, 85.2, [...] Replace Required Details, Route to Pharmacy Electronically, [facility] 56571, 157.1, cm, 12... Start Date: 10/08/20 Status: [...] 09/24/20 10:02:00 EST, [id number] fill upon patient request, 157.7, cm, 09/18/20... Start Date: 09/24/20 Status: Ordered prochlorperazine 10 mg oral tablet 1 tablet = 10 mg, By Mouth, Every 6 hours, PRN Nausea, # 30 tablet, 2 Refills, Maintenance, 08/27/20 15:33:00 EDT, [id number] 157.7, cm, 08/27/20 9:55:00 EDT, Height, 88, kg, 08/27/20 9:55:00 EDT, Dry Weight Start Date: 08/27/20 Status: Ordered Senna 8.6 mg oral tablet 17.2 mg, 2, tablet, By Mouth, Daily at bedtime, PRN, # 100 tablet, Refills 0, Tot. Refills 0, Maintenance, for constipation, 08/27/20 15:33:00 EDT, Route to Pharmacy Electronically, [facility]/pharmacy #[id number] Tablet, 157.7, cm, 08/27/20 9:55:00 [...] recent to oldest [Reference Range]: 1 Height 157.1 cm (10/08/20 9:45 AM) Weight 83.7 kg (10/08/20 9:45 AM) Pulse Rate [55-90 bpm] 90 bpm (10/08/20 9:45 AM) Body Mass Index [18.5-24.99] 33.91 *>HHI* (10/08/20 9:45 AM) Blood Pressure [90-138/55-84 mm Hg] 174/ 81mm Hg *H* (10/08/20 9:45 AM) Temperature [96.8-100.4 DegF] 98.8 DegF (10/08/20 9:45 AM) Blood pressure sites Arm, right (10/08/20 9:45 AM) Temperature Route Temporal (10/08/20 9:45 AM) Social History Social History Type Response Smoking Status Never (less than 100 in lifetime) entered on: 07/11/20 Sex
--- OUTSIDE RECORDS SUMMARY | 2024-04-11 07:47 | XMS_ITS | Continuity of Care Document ---
Author Organization [facility] COMPLEX DIRECTOR Oncolog y Address [address] [place] [address]- Care Team Providers Care Loan Servicing Representative Name Role Phone Wing Emerson MD Primary Care Physician [phone] [place] [facility] [place] 08/05/20 - 09/04/20 [facility] COMPLEX DIRECTOR Oncology [address] [place] [id number] Allergies, Adverse Reactions, Alerts Substance Reaction Severity [...] 0 Refills, Soft Stop, 07/14/20 15:31:00 EDT, [facility], 157.7, cm, 07/14/20 14:27:00 EDT, [...] 08/05/20 9:07:00 EDT, Route to Pharmacy Electronically, [facility] 80971, 157.7, cm, 07/14/20 14:27:00 EDT, Height, 85.2, [...] 08/31/20 16:45:00 EST, Route to Pharmacy Electronically, [facility]/pharmacy #[id number], Partial fill upon patient request, 157.... Start Date: 08/31/20 Stop Date: 09/18/20 Status: Ordered prochlorperazine 10 mg oral tablet 1 tablet = 10 mg, By Mouth, Every 6 hours, PRN Nausea, # 30 tablet, 2 Refills, Maintenance, 08/27/20 15:33:00 EDT, Tablet, [facility]/pharmacy #[id number], 157.7, cm, 08/27/20 9:55:00 EDT, Height, 88, kg, 08/27/20 9:55:00 EDT, Dry Weight Start Date: 08/27/20 Status: Ordered Senna 8.6 mg oral tablet 17.2 mg, 2, tablet, By Mouth, Daily at bedtime, PRN, # 100 tablet, Refills 0, Tot. Refills 0, Maintenance, for constipation, 08/27/20 15:33:00 EDT, Route to Pharmacy Electronically, [facility]/pharmacy #[id number] Tablet, 157.7, cm, 08/27/20 9:55:00 [...]
--- OUTSIDE RECORDS SUMMARY | 2024-04-11 07:47 | XMS_ITS | Continuity of Care Document ---
Author Organization [facility] HOLLOW HANDLE BENCH WORKER Oncolog y Address [address] [place] [address]- Care Team Providers Care Permaculture Designer Name Role Phone Wing Emerson MD Primary Care Physician Encounter [facility] [place] Date(s): 09/22/20 - 10/22/20 [facility] HOLLOW HANDLE BENCH WORKER Oncology [address] [place] [id number] Allergies, Adverse Reactions, Alerts Substance Reaction [...] 0 Refills, Soft Stop, 07/14/20 15:31:00 EDT, [facility], 157.7, cm, 07/14/20 14:27:00 EDT, [...] 08/05/20 9:07:00 EDT, Route to Pharmacy Electronically, [facility], 157.7, cm, 07/14/20 14:27:00 EDT, Height, 85.2, [...] Replace Required Details, Route to Pharmacy Electronically, [facility] 56004, 157.1, cm, 12... Start Date: 10/08/20 Status: [...] 09/24/20 10:02:00 EST, Route to Pharmacy Electronically, [facility]/pharmacy #[id number], Partial fill upon patient request, 157.7, cm, 09/18/20... Start Date: 09/24/20 Status: Ordered prochlorperazine 10 mg oral tablet 1 tablet = 10 mg, By Mouth, Every 6 hours, PRN Nausea, # 30 tablet, 2 Refills, Maintenance, 08/27/20 15:33:00 EDT, Tablet, [facility]/pharmacy #[id number], 157.7, cm, 08/27/20 9:55:00 EDT, Height, 88, kg, 08/27/20 9:55:00 EDT, Dry Weight Start Date: 08/27/20 Status: Ordered Senna 8.6 mg oral tablet 17.2 mg, 2, tablet, By Mouth, Daily at bedtime, PRN, # 100 tablet, Refills 0, Tot. Refills 0, Maintenance, for constipation, 08/27/20 15:33:00 EDT, Route to Pharmacy Electronically, [facility]/pharmacy #[id number] Tablet, 157.7, cm, 08/27/20 9:55:00 [...]
--- OUTSIDE RECORDS SUMMARY | 2024-04-11 07:47 | XMS_ITS | Continuity of Care Document ---
Author Organization [facility] Address [address] [place] [address] ve [address] [place] [address]- Care Team Providers Care Utility Specialist Name Role Phone Wing Emerson MD Primary Care Physician Encounter [facility] [place] Date(s): 10/08/20 - 11/07/[address] [place], [place] [address] Attending Physician: Sri Dickey Admitting Physician: AdmtrSri Referring Physician: Admtr, Ar8 Allergies, Adverse Reactions, [...] 7:50:00 EST, 11/05/20 7:50:00 EST, Capsule, [id number], Partial fill upon patient request if the [...] 0 Refills, Soft Stop, 07/14/20 15:31:00 EDT, [facility], 157.7, cm, 07/14/20 14:27:00 EDT, Height, [...] 08/05/20 9:07:00 EDT, Route to Pharmacy Electronically, [facility] 49877, 157.7, cm, 07/14/20 14:27:00 EDT, Height, 85.2, [...] Refills, Maintenance, 11/06/20 10:56:00 EST, REC Powder, [facility]/pharmacy #[id number], Partial fill upon patient request if [...] Replace Required Details, Route to Pharmacy Electronically, [facility] 97942, 165.1, cm, 12... Start Date: 11/03/20 Status: [...] 11/06/20 10:56:00 EST, Route to Pharmacy Electronically, [facility]/pharmacy #[id number], Partial fillupon patient request, 165.1, cm, 11/06/20 8:23:00 E... Start Date: 11/06/20 Status: Ordered prochlorperazine 10 mg oral tablet 1 tablet = 10 mg, By Mouth, Every 6 hours, PRN Nausea, # 30 tablet, 2 Refills, Maintenance, 08/27/20 15:33:00 EDT, Tablet, [facility]/pharmacy #[id number], 157.7, cm, 08/27/20 9:55:00 EDT, Height, 88, kg, 08/27/20 9:55:00 EDT, Dry Weight Start Date: 08/27/20 Status: Ordered Senna S 50 mg-187 mg oral tablet 2 tablet, By Mouth, Daily at bedtime, # 30 tablet, 0 Refills, Maintenance, 11/06/20 10:56:00 EST, Tablet, [facility]/pharmacy #[id number], Partial fill upon patient request if [...] 11/06/20 10:56:00 EST, Route to Pharmacy Electronically, [facility]/pharmacy #[id number], Partial anneliese... Start Date: 11/06/20 Status: [...]
--- OUTSIDE RECORDS SUMMARY | 2024-04-11 07:47 | XMS_ITS | Continuity of Care Document ---
Author Organization [facility] COLLEGE SCOUTING COORDINATOR Oncolog y Address [address] [place] [address]- En[place] [facility] [place] Date(s): 05/05/23 - 09/02/23 [facility] COLLEGE SCOUTING COORDINATOR Oncology [address] [place], [place] [address] Attending Physician: Karena Chamorro MD Admitting [...] Related Persons Name: LISA CAO Address: home [address] [place] [id number]
--- OUTSIDE RECORDS SUMMARY | 2024-04-11 07:47 | XMS_ITS | Continuity of Care Document ---
Author Organization [facility] MIXING AND DISPENSING SUPERVISOR Oncolog y Address [address] [place] [address]- Care Team Providers Care Solid Waste Disposal Manager Name Role Phone Wing Emerson MD Primary Care Physician [phone] [facility] [place] Date(s): 09/09/21 - 10/09/21 [facility] MIXING AND DISPENSING SUPERVISOR Oncology [address] [place] [address] Attending Physician: Sri Dickey Admitting Physician: Sri Dickey Referring Physician: Admtr, [id number] Allergies, Adverse Reactions, Alerts Substance Reaction Severity [...] to Pharmacy Electronically, [facility] 68173, 157.7, cm, 07/14/20 14:27:00 EDT, Height, 85.2, [...] to Pharmacy Electronically, [facility] 76447, 165.1, cm, 12... Start Date: 11/03/20 Status: [...] 11/06/20 10:56:00 EST, Route to Pharmacy Electronically, [facility]/pharmacy #[id number], Partial fillupon patient request, 165.1, [...]
--- OUTSIDE RECORDS SUMMARY | 2024-04-11 07:47 | XMS_ITS | Continuity of Care Document ---
Author Organization [facility] WHARF WORKER Oncolog y Address [address] [place] [address]- Care Team Providers Care Iron Caster Name Role Phone Wing Emerson MD Primary Care Physician [place] [facility] [place](s): 06/11/21 - 10/09/21 [facility] WHARF WORKER Oncology [address] [place] [address] Attending Physician: Karena Chamorro MD Admitting Physician: [...] 08/05/20 9:07:00 EDT, Route to Pharmacy Electronically, [facility] 96352, 157.7, cm, 07/14/20 14:27:00 EDT, Height, 85.2, [...] Refills, Maintenance, 11/06/20 10:56:00 EST, REC Powder, [facility]/pharmacy #[id number], Partial fill upon patient [...] Replace Required Details, Route to Pharmacy Electronically, [facility] 21143, 165.1, cm, 12... Start Date: 11/03/20 Status: [...] 11/06/20 10:56:00 EST, Route to Pharmacy Electronically, [facility]/pharmacy #[id number], Partial fillupon patient request, 165.1, cm, 11/06/20 8:23:00 E... Start Date: 11/06/20 Status: Ordered prochlorperazine 10 mg oral tablet 1 tablet = 10 mg, By Mouth, Every 6 hours, PRN Nausea, # 30 tablet, 2 Refills, Maintenance, 08/27/20 15:33:00 EDT, Tablet, [facility]/pharmacy #[id number], 157.7, cm, 08/27/20 9:55:00 [...]
--- OUTSIDE RECORDS SUMMARY | 2024-04-11 07:47 | XMS_ITS | Continuity of Care Document ---
Author Organization [facility] Address [address] [place] [address]- [place] [facility] [place] [facility] [place] [id number] Date(s): 07/05/23 - 07/06/[address] [address]- Discharge Disposition: A-D/C Walkout Attending Physician: Not on Staff, Attending MD Admitting Physician: Not on Staff, Admitting MD Referring Physician: Not on Staff, Referring MD Allergies, Adverse Reactions, Alerts Substance Reaction [...] Status: Ordered amoxicillin 500 mg oral capsule See Instructions, Take all 4 tablets by mouth 1 hour before dental cleaning/procedure, # 4 tablet, 1 Refills, Acute 08/31/23 8:00:00 EDT, 06/02/23 15:57:00 EDT, [facility]/pharmacy #[id number], Partial fill upon patient request if the prescription is for a schedul... Start Date: 06/02/23 Stop Date: 08/31/23 Status: Ordered atorvastatin 20 mg oral tablet [...] bleeding Confirmed Active Vaginal lesion Confirmed Active Vital Signs Most recent to oldest [Reference Range]: 1 2 3 Height 158 cm (07/05/23 3:06 PM) Oxygen Saturation [94-100 %] 99 % (07/06/23 2:47 AM) 98 % (07/06/23 1:47 AM) 98 % (07/06/23 12:16 AM) Pulse Rate [55-90 bpm] 66 bpm (07/06/23 2:47 AM) 70 bpm (07/06/23 1:47 AM) 68 bpm (07/06/23 12:16 AM) Blood Pressure [90-138/55-84 mm Hg] 148/56mm Hg *H* (07/06/23 2:47 AM) 133/67mm Hg (07/06/23 1:47 AM) 145/55mm Hg *H* (07/06/23 12:16 AM) Respiratory Rate [16-30 br/min] 16 br/min (07/05/23 6:42 PM) 18 br/min (07/05/23 4:26 PM) 18 br/min (07/05/23 3:06 PM) Temperature [96.8-100.4 DegF] 97.9 DegF (07/06/23 2:47 AM) 97.9 DegF (07/06/23 1:47 AM) 97.7 DegF (07/06/23 12:16 AM) Mode of Delivery (Oxygen) Room air (07/05/23 11:34 PM) Room air (07/05/23 10:10 PM) Room air (07/05/23 8:44 PM) Blood pressure sites Arm, left (07/06/23 2:47 AM) Arm, left (07/06/23 1:47 AM) Arm, left (07/06/23 12:16 AM) Temperature Route Oral (07/06/23 2:47 AM) Oral (07/06/23 1:47 AM) Oral (07/06/23 12:16 AM) Dry Weight 86 kg (07/05/23 3:06 PM) Dry Weight Obtained Via Patient/family s tated (07/05/23 3:06 PM) Social History Social History Type Response Smoking Status Never (less than 100 in lifetime) entered on: 07/11/20 Sex EKG study * Event Display: EKG Authored Date: * Event Display: ECG 12-Lead Authored Date: Please click on pdf link to open report * Event Display: ECG 12-Lead Authored Date: Ventricular Rate: 76 BPM Atrial Rate: 66 BPM QRS Duration: 136 ms Q-T Interval: 450 ms QTC Calculation(Bazett): 506 ms P [place]: 141 degrees R [place]: -25 degrees T [place]: 54 degrees Baseline artifact limits ECG interpretation Probable Ventricular-paced rhythm with occasional AV dual-paced complexes with Premature ventricular complexes Abnormal ECG When compared with ECG of 23-FEB-2023 09:29, Vent. rate has increased BY 12 BPM Confirmed by GENET RASMUSSEN MD ([id number]) on 07/06/2023 12:57:16 PM Deary: GENET RASMUSSEN MD Patient Care team information Care Team Personnel Name: Blanca Garcia [place] Position: [facility] Onco RN Member Role: Primary Care Nurse Name: Katia Cervantes RN Position: [facility] RN Member Role: Primary Care Nurse Care Team Related Persons Name: LISA CAO Address: home [address] [place] [address]
--- OUTSIDE RECORDS SUMMARY | 2024-04-11 07:47 | XMS_ITS | Continuity of Care Document ---
Author Organization [facility] CANCER REGISTRY MANAGER Oncolog y Address [address] [place] [address]- Care Team Providers Care Money Manager Name Role Phone Wing Emerson MD Primary Care Physician [place] [facility] [place] 07/17/20 - 08/16/20 [facility] CANCER REGISTRY MANAGER Oncology [address] [place] [address]- [facility] Allergies, Adverse Reactions, Alerts Substance Reaction Severity [...] 0 Refills, Soft Stop, 07/14/20 15:31:00 EDT, [facility], 157.7, cm, 07/14/20 14:27:00 EDT, Height, [...] 08/05/20 9:07:00 EDT, Route to Pharmacy Electronically, [facility] 17421, 157.7, cm, 07/14/20 14:27:00 EDT, Height, 85.2, [...]
--- OUTSIDE RECORDS SUMMARY | 2024-04-11 07:47 | XMS_ITS | Continuity of Care Document ---
Author Organization [facility] Address [address], [address] [place] [address]- Care Team Providers Care Transitional Living Specialist Name Role Phone Wing Emerson MD Primary Care Physician [id number] Date(s): 02/16/21 - 03/18/21 [facility] [address], [address] [place], [place] [address] Attending Physician: AdmSri donahue Admitting Physician: AdmtrSri Referring Physician: Admtr, Ar8 [...] 08/05/20 9:07:00 EDT, Route to Pharmacy Electronically, [facility] 95405, 157.7, cm, 07/14/20 14:27:00 EDT, Height, 85.2, [...] Refills, Maintenance, 11/06/20 10:56:00 EST, REC Powder, [facility]/pharmacy #[id number], Partial fill upon [...] Replace Required Details, Route to Pharmacy Electronically, [facility] 78807, 165.1, cm, 12... Start Date: 11/03/20 Status: [...] 11/06/20 10:56:00 EST, Route to Pharmacy Electronically, [facility]/pharmacy #[id number], Partial fillupon patient request, 165.1, cm, 11/06/20 8:23:00 E... Start Date: 11/06/20 Status: Ordered prochlorperazine 10 mg oral tablet 1 tablet = 10 mg, By Mouth, Every 6 hours, PRN Nausea, # 30 tablet, 2 Refills, Maintenance, 08/27/20 15:33:00 EDT, Tablet, [facility]/pharmacy #[id number], 157.7, cm, 08/27/20 9:55:00 [...]
--- OUTSIDE RECORDS SUMMARY | 2024-04-11 07:47 | XMS_ITS | Continuity of Care Document ---
Author Organization [facility] ROTOR BLADE INSTALLER Oncolog y Address [address] [place] [address]- Care Team Providers Care Digital Content Coordinator Name Role Phone Wing Emerson MD Primary Care Physician Encounter [facility] [place] Date(s): 10/29/21 - 11/28/21 [facility] ROTOR BLADE INSTALLER Oncology [address] [place] [address] [address] Allergies, Adverse Reactions, Alerts Substance [...] 9:07:00 EDT, Route to Pharmacy Electronically, [facility] STORE 19181, 157.7, cm, 07/14/20 14:27:00 EDT, Height, 85.2, [...] Maintenance, 11/06/20 10:56:00 EST, REC Powder, [facility]/pharmacy #[id number], Partial fill upon patient [...] Required Details, Route to Pharmacy Electronically, [facility]ORE 83501, 165.1, cm, 12... Start Date: 11/03/20 Status: [...] 11/06/20 10:56:00 EST, [id number] fillupon patient request, 165.1, cm, 11/06/20 8:23:00 E... Start Date: 11/06/20 Status: Ordered prochlorperazine 10 mg oral tablet 1 tablet = 10 mg, By Mouth, Every 6 hours, PRN Nausea, # 30 tablet, 2 Refills, Maintenance, 08/27/20 15:33:00 EDT, Tablet, [facility]/pharmacy #[id number], 157.7, cm, 08/27/20 9:55:00 EDT, Height, 88, kg, 08/27/20 9:55:00 EDT, Dry Weight Start Date: 08/27/20 Status: Ordered Smoothie Readi-Cat 2 oral suspension See Instructions, If scan before 12pm drink 1st drink night before prior to midnight & 2nd drink 90mins before.If scan after 12pm drink first drink before 8am and 90mins before.If scan after 4pm drink first drink 6hrs and 90mins before., # 2 each, 0 R... Start Date: 11/02/21 Status: Ordered traMADol 50 mg oral tablet [...]
--- OUTSIDE RECORDS SUMMARY | 2024-04-11 07:48 | XMS_ITS | Continuity of Care Document ---
Author Organization [facility] MOVER Oncolog y Address [address] [place] [address]- Care Team Providers Care Sprinkler Irrigation Equipment Mechanic Name Role Phone Wing Emerson MD Primary Care Physician [phone] Encounter [facility] Date(s): 11/26/20 - 01/18/21 [facility] MOVER Oncology [address] [place] [address]- Attending Physician: Karena Chamorro MD Admitting Physician: [...] 0 Refills, Soft Stop, 07/14/20 15:31:00 EDT, [facility], 157.7, cm, 07/14/20 14:27:00 EDT, [...] 9:07:00 EDT, Route to Pharmacy Electronically, [facility] STORE 79311, 157.7, cm, 07/14/20 14:27:00 EDT, Height, 85.2, [...] Maintenance, 11/06/20 10:56:00 EST, REC Powder, [facility]/pharmacy #[id number], Partial fill upon patient request [...] Required Details, Route to Pharmacy Electronically, [facility] 33301, 165.1, cm, 12... Start Date: 11/03/20 Status: [...] 10:56:00 EST, Route to Pharmacy Electronically, [facility]/pharmacy #[id number], Partial fillupon patient request, 165.1, cm, 11/06/20 8:23:00 E... Start Date: 11/06/20 Status: Ordered prochlorperazine 10 mg oral tablet 1 tablet = 10 mg, By Mouth, Every 6 hours, PRN Nausea, # 30 tablet, 2 Refills, Maintenance, 08/27/20 15:33:00 EDT, Tablet, [facility]/pharmacy #[id number], 157.7, cm, 08/27/20 9:55:00 EDT, Height, 88, kg, 08/27/20 9:55:00 EDT, Dry Weight Start Date: 08/27/20 Status: Ordered Senna S 50 mg-187 mg oral tablet 2 tablet, By Mouth, Daily at bedtime, # 30 tablet, 0 Refills, Maintenance, 11/06/20 10:56:00 EST, Tablet, [facility]/pharmacy #[id number], Partial fill upon patient request [...] 10:56:00 EST, Route to Pharmacy Electronically, [facility]/pharmacy #[id number], Partial anneliese... Start Date: 11/06/20 [...]
--- OUTSIDE RECORDS SUMMARY | 2024-04-11 07:48 | XMS_ITS | Continuity of Care Document ---
Author Organization [facility] Address [address] [place] [address]- Care Team Providers Care Bookkeeping Machine Mechanic Name Role Phone Idania MCDONNELL, Wing Gutierrez Primary Care Physician [place] [facility] [place] [id number] Date(s): 09/20/22 - 10/20/22 [facility] [address] [place] [address]- [place] Allergies, Adverse Reactions, Alerts Substance Reaction Severity [...] 6:44:00 EST Start Date: 12/26/19 Status: Ordered gabapentin 100 mg oral capsule 100 mg, 1, capsule, By Mouth, 3 times a day, Refills 0, Maintenance, 09/02/22 11:41:00 EDT, Partialfill upon patient request if the prescription is for a schedule II opioid drug. Start Date: 09/02/22 Status: Ordered levothyroxine 25 mcg (0.025 mg) [...] supp, 1 Refills, Maintenance, 06/04/22 13:59:00EDT, [facility]/pharmacy #[id number], Partial fill upon patient request if the prescription is for a schedule IIopioid drug., 157.7, cm, 06/04/22 13:24:00 EDT, Hei... Start Date: 06/04/22 Stop Date: 08/03/22 Status: Ordered MiraLax oral powder for reconstitution = 17 Gm, By Mouth, Daily, dissolve in water before taking, # 255 Gm, 0 Refills, Maintenance, 11/06/20 10:56:00 EST, REC Powder, [facility]/pharmacy #[id number], Partial fill upon patient request if the [...] Care team information Care Team Personnel Name: Wing Emerson MD Position: Reference Physician Member Role: PCP Address: Address: [address] [place] [address]- Care Team Related Persons Name: LISA CAO Address: home [address] [place] [address]
--- OUTSIDE RECORDS SUMMARY | 2024-04-11 07:48 | XMS_ITS | Continuity of Care Document ---
Author Organization [facility] ter Address [address] [place] [address]- Care Team Providers Care Vmware Consultant Name Role Phone Not on Staff, PCP Primary Care Physician Unavail able Encounter [place] Date(s): 12/26/19 - 12/26/[address] [address]- [facility] Discharge Disposition: A-D/C Home Attending Physician: Marvin Swanson MD Admitting Physician: Marvin Swanson MD Referring Physician: Marvin Swanson MD Allergies, Adverse Reactions, Alerts Substance Reaction [...] 6:43:00 EST Start Date: 12/26/19 Status: Ordered Eliquis 5 mg oral tablet 1 tablet = 5 mg, By Mouth, 2 times a day, # 60 tablet, 0 Refills, Maintenance, 12/26/19 6:44:00 EST, Tablet Start Date: 12/26/19 Status: Ordered furosemide 20 mg oral tablet 1, capsule, By Mouth, Once, # 1 tablet, Refills 0, Maintenance, 12/26/19 6:44:00 EST Start Date: 12/26/19 Status: Ordered lisinopril 10 mg oral tablet 10 mg, 1, tablet, By Mouth, Daily, # 30 tablet, Refills 0, Maintenance, 12/26/19 6:44:00 EST Start Date: 12/26/19 Status: Ordered loratadine 10 mg oral tablet 10 mg, 1, tablet, By Mouth, Daily, # 30 tablet, Refills 0, Maintenance, 12/26/19 6:45:00 EST Start Date: 12/26/19 Status: Ordered metoprolol 25 mg oral tablet 25 mg, 1, tablet, By Mouth, 2 times a day, Refills 0, Maintenance, 12/26/19 6:45:00 EST Start Date: 12/26/19 Status: Ordered omeprazole 20 mg oral delayed [...] EST, Tablet Start Date: 12/26/19 Status: Ordered Vitamin D3 1000 intl units oral capsule 1 capsule = 1,000 International_Units, By Mouth, Daily, # 75 capsule, 0 Refills, Maintenance, 12/26/19 6:46:00 EST, Capsule Start Date: 12/26/19 Status: Ordered
--- OUTSIDE RECORDS SUMMARY | 2024-04-11 07:48 | XMS_ITS | Continuity of Care Document ---
Author Organization [facility] ter Address [address] [place] [address]- Care Team Providers Care Rhit Name Role Phone Wing Emerson MD Primary Care Physician Encounter [facility] Date(s): 01/29/21 - 03/19/[address] [address] Attending Physician: Durga Ernst MD Admitting Physician: Durga Ernst MD Referring Physician: Durga Ernst MD Allergies, Adverse Reactions, Alerts Substance Reaction [...] 08/05/20 9:07:00 EDT, Route to Pharmacy Electronically, [facility] STORE [id number], 157.7, cm, 07/14/20 14:27:00 EDT, Height, 85.2, [...] Refills, Maintenance, 11/06/20 10:56:00 EST, REC Powder, [facility]/pharmacy #[id number], Partial fill upon patient request [...] Replace Required Details, Route to Pharmacy Electronically, [facility] STORE 83442, 165.1, cm, 12... Start Date: 11/03/20 Status: [...] 11/06/20 10:56:00 EST, Route to Pharmacy Electronically, [facility]/pharmacy #[id number], Partial fillupon patient request, 165.1, cm, 11/06/20 8:23:00 E... Start Date: 11/06/20 Status: Ordered prochlorperazine 10 mg oral tablet 1 tablet = 10 mg, By Mouth, Every 6 hours, PRN Nausea, # 30 tablet, 2 Refills, Maintenance, 08/27/20 15:33:00 EDT, Tablet, [facility]/pharmacy #[id number], 157.7, cm, 08/27/20 9:55:00 EDT, [...]
--- OUTSIDE RECORDS SUMMARY | 2024-04-11 07:48 | XMS_ITS | Continuity of Care Document ---
Author Organization [facility] On[facility] Address [address] [place] [address]- Care Team Providers Care Cardiac Monitor Name Role Phone Wing Emerson MD Primary Care Physician [phone] Encounter [facility] Date(s): 11/02/21 - 02/03/22 [facility] Oncology [address] [place] [address] Attending Physician: Karena Chamorro MD Admitting [...] Refills, Maintenance, 11/06/20 10:56:00 EST, REC Powder, [facility]/pharmacy #[id number], Partial fill upon patient request if the [...]
--- OUTSIDE RECORDS SUMMARY | 2024-04-11 07:48 | XMS_ITS | Continuity of Care Document ---
Author Organization [facility] Address [address] [place] [address]- [id number] Date[facility] 06/07/23 - 08/24/23 [facility] [address] [place] [address]- Discharge Disposition: A-D/C Home Attending Physician: Km MCDONNELL, Arsenio Bowling Admitting Physician: Arsenio Barbour MD Referring Physician: [...] recent to oldest [Reference Range]: 1 Height 153.67 cm (06/24/23 1:11 PM) Weight 87.8 kg (06/24/23 1:11 PM) Oxygen Saturation [94-100 %] 98 % (06/24/23 1:11 PM) Pulse Rate [55-90 bpm] 83 bpm (06/24/23 1:11 PM) Body Mass Index [18.5-24.99 kg/m2] 37.18 kg/m2 *>HHI* (06/24/23 1:11 PM) Blood Pressure [90-138/55-84 mm Hg] 129/ 47mm Hg (06/24/23 1:11 PM) Temperature [96.8-100.4 DegF] 98.1 DegF (06/24/23 1:11 PM) Mode of Delivery (Oxygen) Room air (06/24/23 1:11 PM) Blood pressure sites Arm, right (06/24/23 1:11 PM) Temperature Route Oral (06/24/23 1:11 PM) Dry Weight 87.8 kg (06/24/23 1:11 PM) Weight Obtained Via Standing scale (06/24/23 1:11 PM) Dry Weight Obtained Via Standing scale (06/24/23 1:11 PM) Social History Social History Type Response Smoking Status Never (less than 100 in lifetime) entered on: 07/11/20 Sex Patient Care team information Care Team Personnel Name: Blanca Garcia [place] Position: [facility] Onco RN Member Role: Primary Care Nurse Name: Katia Cervantes RN Position: [facility] RN Member Role: Primary Care Nurse Care Team Related Persons Name: LISA CAO Address: home [address] [place] [address]
--- OUTSIDE RECORDS SUMMARY | 2024-04-11 07:48 | XMS_ITS | Continuity of Care Document ---
Author Organization [facility] ter Address [address] [place] [address]- Care Team Providers Care Carbon Brush Maker Name Role Phone Idania MCDONNELL, Wing Gutierrez Primary Care Physician [phone] [place] [facility] Date(s): 11/24/22 - 11/24/[address] [address] Discharge Disposition: A-D/C Home Attending Physician: Veronica Barrios MD Admitting Physician: Veronica Barrios MD Referring Physician: Veronica Barrios MD Allergies, [...] EST, Tablet Start Date: 12/26/19 Status: Ordered Entresto 49 mg-51 mg oral tablet 1 tablet, By Mouth, 2 times a day, # 60 tablet, 0 Refills, Maintenance, 11/24/22 12:13:00 EST, Tablet, Partial fill upon patient request if the prescription is for a schedule II opioid drug. Start Date: 11/24/22 Status: Ordered furosemide 20 mg oral tablet [...] 30 supp, 1 Refills, Maintenance, 06/04/22 13:59:00EDT, [facility]/pharmacy #[id number], Partial fill upon patient request if the prescription is for a schedule IIopioid drug., 157.7, cm, 06/04/22 13:24:00 EDT, Hei... Start Date: 06/04/22 Stop Date: 08/03/22 Status: Ordered MiraLax oral powder for reconstitution = 17 Gm, By Mouth, Daily, dissolve in water before taking, # 255 Gm, 0 Refills, Maintenance, 11/06/20 10:56:00 EST, REC Powder, [facility]/pharmacy #[id number], Partial fill upon patient request [...] recent to oldest [Reference Range]: 1 2 Height 157.7 cm (11/24/22 12:23 PM) 162 cm (11/24/22 12:23 PM) Weight 84 kg (11/24/22 12:23 PM) 84 kg (11/24/22 12:23 PM) Oxygen Saturation [94-100 %] 98 % (11/24/22 11:00 AM) Pulse Rate [55-90 bpm] 62 bpm (11/24/22 11:00 AM) Blood Pressure [90-138/55-84 mm Hg] 151/ 66mm Hg *H* (11/24/22 11:00 AM) Respiratory Rate [16-30 br/min] 18 br/mi n (11/24/22 11:00 AM) Temperature [96.8-100.4 DegF] 97.1 DegF (11/24/22 11:00 AM) Mode of Delivery (Oxygen) Room air (11/24/22 11:00 AM) Blood pressure sites Arm, left (11/24/22 11:00 AM) Temperature Route Temporal (11/24/22 11:00 AM) Dry Weight 84 kg (11/24/22 12:23 PM) 84 kg (11/24/22 12:23 PM) Social History Social History Type Response Smoking Status Never (less than 100 in lifetime) entered on: 07/11/20 Sex EKG study * Event Display: ECG 12-Lead Authored Date: [id number] Please click on pdf link to open report * Event Display: ECG 12-Lead Authored Date: [id number] Ventricular Rate: 60 BPM Atrial Rate: 59 BPM P-R Interval: 196 ms QRS Duration: 126 ms Q-T Interval: 502 ms QTC Calculation(Bazett): 502 ms P [place]: 63 degrees R [place]: -29 degrees T [place]: 17 degrees AV dual-paced rhythm Abnormal ECG When compared with ECG of 02-SEP-2022 11:53, Premature ventricular complexes are no longer Present Vent. rate has decreased BY 3 BPM Confirmed by FE MIRANDA MD ([id number]) on 11/24/2022 12:43:55 PM Raymond: FE MIRANDA MD US Heart Transesophageal * Event Display: Trans-esophageal Echocardiogram Authored Date: [id number] Transesophageal Echocardiography Report (ALVERTO) Patient Demographics Patient Name FIONA CAO Date of Study 11/24/2022 Corporate Gender Female Facility Race Ethnicity Date of 1950 Height: 62.2 inches Age 72 year(s) Weight: 185.19 pounds Accession Number [id number] BSA: 1.85 m2 Room Number S151 BMI: 33.65 kg/m2 Referring Physician Veronica Barrios MD Interpreting Physician SATHYA Barajas Jet Operator Kavita Cruz RCS Indications Atrial fibrillation. Clinical History Heart Failure Atrial fibrillation. Hypertension. Hypercholesterolemia. LBBB Dyslipidemia. Endometrial CA Cardiomyopathy. Diabetes Mellitus. 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 Procedure Information:Definity was administered by RN . Study Date11/24/2022 Start Time: 01:15 PM Study Location: [facility] [place] Echo Study Status: EP lab Patient Status: Routine Technical Quality: Adequate Blood Pressure:163/80 mmHg EKG: Atrial fibrillation HR: 88 bpm Contrast Medium: Definity. Amount - 2 ml ALVERTO Performed By: Osvaldo Noe MD Type of Anesthesia: Anesthesia administered by anesthesiologist. Allergies - Sulfa drugs. - Levaquin. - Other allergy:(darvocet). Cardiac Anatomy Left Ventricle/Interventricular Septum The left ventricular size and function appear grossly normal. LVEF visually estimated at 55 to 60%. Left Atrium/Interatrial Septum There is severe spontaneous echo contrast in the left atrial appendage. There is severely reduced left atrial appendage function. The left atrial appendage morphology is best described as chicken wing morphology with a dominant posterior lobe. There is a moderate size (0.9 x 0.8 cm) echodensity in the superior posterior portion of the appendage that is consistent with thrombus. The area is anechoic with echo contrast. In addition, echo contrast entry into the left atrial appendage was severely slowed. Left atrial appendage measurements (angle: ostium, depth cm)- 0: 2.2, 2.3 45: 2.1, 2.2 90: 2.1, 2.0 135: 2.3, 2.1 Aortic Valve Aortic valve is trileaflet and appears mildly thickened. There is no significant aortic stenosis or regurgitation. Mitral Valve Mitral valve is mildly thickened. There is mild mitral regurgitation. Aorta There is severe plaque in the descending aorta and arch. Right Ventricle The right ventricular size and function appear grossly normal. There is a device lead in the right ventricle. Right Atrium There is a device lead in the right atrium. Pulmonic Valve The pulmonic valve morphology is poorly visualized. There is trace pulmonic regurgitation. Tricuspid Valve The tricuspid valve is poorly visualized. There is trace tricuspid regurgitation. Pumonary Artery The pulmonary artery appears grossly normal. Venous Structures There is normal pulmonary venous flow. Pericardium/Extracardiac There is a small pericardial effusion adjacent to the left atrial appendage, trace elsewhere. Summary *There is a moderate size (0.9 x 0.8 cm) echodensity in the superior posterior portion of the appendage that is consistent with thrombus. The left ventricular size and function appear grossly normal. The right ventricular size and function appear grossly normal. There is severe plaque in the descending aorta and arch. No significant (worse than mild) valve dysfunction. There is a small pericardial effusion adjacent to the left atrial appendage, trace elsewhere. Recommendation Watchman implantation aborted after LUCIA thrombus discovered. Comparison No prior study available for comparison. Signature * Event Display: Trans-esophageal Echocardiogram Authored Date: Hospital Progress note * Kulwinder Guerra RN: PERFORM, SIGN, VERIFY, SIGN, MODIFY Event Display: Progress Note Hospital Authored Date: Patient: FIONA CAO Age: 72 years Sex: Female : 1950 Associated Diagnoses: None Author: Kulwinder Guerra RN Findings Evaluation Returned from procedure. VSS. No Watchman done, only ALVERTO w/ anesthesia. Patient A&Ox3, tolerating PO. Will continue to monitor. . * Kulwinder Guerra RN: PERFORM Event Display: Progress Note Hospital Authored Date: [id number] IV d/c'd. Discharge instructions reviewed and signed. Questions asked and answered. Discharged fromunit via wheelchair. * Yahaira Serrano RN: PERFORM, SIGN, VERIFY Event Display: Progress Note Hospital Authored Date: Patient: FIONA CAO Age: 72 years Sex: Female : 1950 Associated Diagnoses: None Author: Yahaira Serrano RN Findings Narrative/Incidental patient arrived to unit for watchman procedure, A&ox3, VSS. she says she had some coffee this morning with some cream. procedure to be delayed until 2pm and patient aware. Dr. Barrios came to consent the patient on unit. Patient with difficult IV placement, IV therapy RN x2 to place and was successfull with ultrasound in the L upper arm. labs were drawn off IV and sent. EKG, groin prep completed. off unit to procedure and with all belongings. . Note * Kulwinder Guerra RN: PERFORM Event Display: Discharge/Transfer Note Hospital Authored Date: [id number] Nursing Discharge Note Entered On: 11/24/2022 17:03 EST Performed On: 11/24/2022 17:03 EST by Kulwinder Guerra RN Nursing Discharge Note 2 Discharge Time : 11/24/2022 17:03 EST Discharge Level of Care at Discharge : Home/Jail/Foster Care Patient Left Unit Via : Wheelchair Patient Accompanied Off Unit with : Responsible adult DC Instructions Provided & Signed by Pt : Yes Patient Understands D/C Instructions : Yes Patient Instructions Discharge Signed : Yes Did Pt have Specialty Bed or Wound Vac : No Kulwinder Guerra RN - 11/24/2022 17:03 EST Patient Care team information Care Team Personnel Name: Idania MCDONNELL, Wing Gutierrez Position: Reference Physician Member Role: PCP Address: Address: [address] [place] [address]- Care Team Related Persons Name: LISA CAO Address: home [address] [place] [address]
--- OUTSIDE RECORDS SUMMARY | 2024-04-11 07:48 | XMS_ITS | Continuity of Care Document ---
Author Organization [facility] Address [address] [place] [address]- Encounter [facility] Date(s): 04/18/23 - 05/21/[address] [address] Attending Physician: Veronica Barrios MD Admitting Physician: [...] before scan, # 2 each... Start Date: 04/27/23 Status: Ordered traMADol 50 mg oral tablet [...] Related Persons Name: LISA CAO Address: home [address] [place] [address]
--- OUTSIDE RECORDS SUMMARY | 2024-04-11 07:48 | XMS_ITS | Continuity of Care Document ---
Author Organization [facility] On[facility] Address [address] [place] [address]- Care Team Providers Care Gm Video Name Role Phone Wing Emerson MD Primary Care Physician Encounter [facility] Date(s): 11/05/20 - 12/05/20 [facility] Oncology [address] [place] [id number] Allergies, Adverse [...] 0 Refills, Soft Stop, 07/14/20 15:31:00 EDT, [facility], 157.7, cm, 07/14/20 14:27:00 EDT, [...] 08/05/20 9:07:00 EDT, Route to Pharmacy Electronically, [facility] STORE [address], 157.7, cm, 07/14/20 14:27:00 EDT, Height, 85.2, [...] Refills, Maintenance, 11/06/20 10:56:00 EST, REC Powder, [facility]/pharmacy #[id number], Partial fill upon patient request [...] Replace Required Details, Route to Pharmacy Electronically, [facility] STORE [address], 165.1, cm, 12... Start Date: 11/03/20 Status: [...] 11/06/20 10:56:00 EST, Route to Pharmacy Electronically, [facility]/pharmacy #[id number], Partial fillupon patient request, 165.1, cm, 11/06/20 8:23:00 E... Start Date: 11/06/20 Status: Ordered prochlorperazine 10 mg oral tablet 1 tablet = 10 mg, By Mouth, Every 6 hours, PRN Nausea, # 30 tablet, 2 Refills, Maintenance, 08/27/20 15:33:00 EDT, Tablet, [facility]/pharmacy #[id number], 157.7, cm, 08/27/20 9:55:00 EDT, Height, 88, kg, 08/27/20 9:55:00 EDT, Dry Weight Start Date: 08/27/20 Status: Ordered Senna S 50 mg-187 mg oral tablet 2 tablet, By Mouth, Daily at bedtime, # 30 tablet, 0 Refills, Maintenance, 11/06/20 10:56:00 EST, Tablet, [facility]/pharmacy #[id number], Partial fill upon patient request [...] 11/06/20 10:56:00 EST, Route to Pharmacy Electronically, [facility]/pharmacy #[id number], Partial anneliese... Start Date: 11/06/20 [...]
--- OUTSIDE RECORDS SUMMARY | 2024-04-11 07:48 | XMS_ITS | Continuity of Care Document ---
Author Organization [facility] ter Address [address] [place] [address]- Care Team Providers Care Senior Bookkeeper Name Role Phone Wing Emerson MD Primary Care Physician Encounter [facility] Date(s): 08/14/21 - 10/02/[address] [id number] Attending Physician: Karena Chamorro MD Admitting [...] 08/05/20 9:07:00 EDT, Route to Pharmacy Electronically, [facility] ST[facility] [address], 157.7, cm, 07/14/20 14:27:00 EDT, Height, 85.2, [...] Refills, Maintenance, 11/06/20 10:56:00 EST, REC Powder, [facility]/pharmacy #[id number], Partial fill upon [...] Replace Required Details, Route to Pharmacy Electronically, [facility] [address]258, 165.1, cm, 12... Start Date: 11/03/20 Status: [...] 11/06/20 10:56:00 EST, Route to Pharmacy Electronically, [facility]/pharmacy #[id number], Partial fillupon patient request, 165.1, cm, 11/06/20 8:23:00 E... Start Date: 11/06/20 Status: Ordered prochlorperazine 10 mg oral tablet 1 tablet = 10 mg, By Mouth, Every 6 hours, PRN Nausea, # 30 tablet, 2 Refills, Maintenance, 08/27/20 15:33:00 EDT, Tablet, [facility]/pharmacy #[id number], 157.7, cm, 08/27/20 [...]
--- OUTSIDE RECORDS SUMMARY | 2024-04-11 07:48 | XMS_ITS | Continuity of Care Document ---
Author Organization [facility]ETOLOGIST Oncolog y Address [address] [place] [address]- Care Team Providers Care Bath Attendant Name Role Phone Wing Emerson MD Primary Care Physician [place] [facility] [place] 10[place] 11/05/20 [facility] DI[facility]ETOLOGIST Oncology [address] [place] [id number] Allergies, Adverse Reactions, Alerts Substance [...] 7:50:00 EST, 11/05/20 7:50:00 EST, Capsule, [id number], Partial fill upon patient request if the [...] 0 Refills, Soft Stop, 07/14/20 15:31:00 EDT, [facility], 157.7, cm, 07/14/20 14:27:00 EDT, [...] 08/05/20 9:07:00 EDT, Route to Pharmacy Electronically, [facility] STORE [address]384, 157.7, cm, 07/14/20 14:27:00 EDT, Height, 85.2, [...] Replace Required Details, Route to Pharmacy Electronically, [facility]ORE [address], 165.1, cm, 12... Start Date: 11/03/20 Status: [...] 2 Refills, Maintenance, 08/27/20 15:33:00 EDT, Tablet, [facility]/pharmacy #[id number], 157.7, cm, 08/27/20 [...]
--- OUTSIDE RECORDS SUMMARY | 2024-04-11 07:48 | XMS_ITS | Continuity of Care Document ---
Author Organization [facility] Oncolog y Address [address] [place] [address]- Care Team Providers Care Travel Writer Name Role Phone Wing Emerson MD Primary Care Physician [phone] [place] [facility]s): 01/13/21 - 02/12/21 [facility] Oncology [address] [place] [id number] Allergies, Adverse Reactions, Alerts Substance Reaction [...] Electronically, [facility] STORE [address], 157.7, cm, 07/14/20 14:27:00 EDT, Height, 85.2, [...] Electronically, [facility] [address], 165.1, cm, 12... Start Date: 11/03/20 Status: [...] 11/06/20 10:56:00 EST, [id number] Partial fillupon patient request, 165.1, cm, [...]
--- OUTSIDE RECORDS SUMMARY | 2024-04-11 07:48 | XMS_ITS | Continuity of Care Document ---
Author Organization [facility] Oncolog y Address [address] [place] [address]- Care Team Providers Care Video Tape Duplicator Name Role Phone Wing Emerson MD Primary Care Physician [place] [facility] [place]s): 08/14/21 - 09/13/21 [facility] Oncology [address] [place] [address] Allergies, Adverse Reactions, Alerts Substance Reaction [...] to Pharmacy Electronically, [facility] [address]95[address], 157.7, cm, 07/14/20 14:27:00 EDT, Height, 85.2, [...] to Pharmacy Electronically, [facility] [address]14, 165.1, cm, 12... Start Date: 11/03/20 Status: [...] 11/06/20 10:56:00 EST, [id number] Partial fillupon patient request, 165.1, [...]
--- OUTSIDE RECORDS SUMMARY | 2024-04-11 07:48 | XMS_ITS | Continuity of Care Document ---
Author Organization [facility] C ancer Care Address [address] [place] [address]- Care Team Providers Care Venetian Blind Machine Operator Name Role Phone Wing Emerson MD Primary Care Physician [phone] [place] [facility] [place] 12/16/20 - 09/06/21 [facility] [address] [place] [address]- Discharge Disposition: A-D/C Home Attending Physician: Karena Chamorro MD Admitting Physician: Arsenio Barbour MD Referring [...] 08/05/20 9:07:00 EDT, Route to Pharmacy Electronically, [facility]ORE 68964, 157.7, cm, 07/14/20 14:27:00 EDT, Height, 85.2, [...] Refills, Maintenance, 11/06/20 10:56:00 EST, REC Powder, [facility]/pharmacy #[id number], Partial fill upon patient request if [...] Replace Required Details, Route to Pharmacy Electronically, [facility] 98253, 165.1, cm, 12... Start Date: 11/03/20 Status: [...] 11/06/20 10:56:00 EST, Route to Pharmacy Electronically, [facility]/pharmacy #[id number], Partial fillupon patient request, 165.1, cm, 11/06/20 8:23:00 E... Start Date: 11/06/20 Status: Ordered prochlorperazine 10 mg oral tablet 1 tablet = 10 mg, By Mouth, Every 6 hours, PRN Nausea, # 30 tablet, 2 Refills, Maintenance, 08/27/20 15:33:00 EDT, Tablet, [facility]/pharmacy #[id number], 157.7, cm, 08/27/20 9:55:00 EDT, Height, [...] Range]: 1 2 3 Height 165.1 cm (01/30/21 9:54 AM) 165.1 cm (01/30/21 9:50 AM) 165.1 cm (01/29/21 9:46 AM) Weight 81.3 kg (01/29/21 9:46 AM) Oxygen Saturation [94-100 %] 100 % (01/30/21 9:54 AM) 100 % (01/29/21 9:46 AM) 100 % (01/08/21 9:27 AM) Pulse Rate [55-90 bpm] 63 bpm (01/30/21 9:54 AM) 71 bpm (01/29/21 9:46 AM) 75 bpm (01/08/21 9:27 AM) Body Mass Index [18.5-24.99] 29.83 *H* (01/29/21 9:46 AM) Blood Pressure [90-138/55-84 mm Hg] 147/55mm Hg *H* (01/30/21 9:54 AM) 151/64mm Hg *H* (01/29/21 9:46 AM) 165/69mm Hg *H* (01/08/21 9:27 AM) Temperature [96.8-100.4 DegF] 98.7 DegF (01/30/21 9:54 AM) 98.1 DegF (01/29/21 9:46 AM) 97.9 DegF (01/08/21 9:27 AM) Mode of Delivery (Oxygen) Room air (01/30/21 9:54 AM) Room air (01/08/21 9:27 AM) Room air (12/18/20 9:32 AM) Blood pressure sites Arm, right (01/30/21 9:54 AM) Arm, right (01/29/21 9:46 AM) Arm, right (01/08/21 9:27 AM) Temperature Route Temporal (01/30/21 9:54 AM) Temporal (01/30/21 9:50 AM) Temporal (01/29/21 9:46 AM) Dry Weight 81.3 kg (01/29/21 9:46 AM) Weight Obtained Via Standing scale (01/29/21 9:46 AM) Dry Weight Obtained Via Standing scale (01/29/21 9:46 AM) Social History Social History Type Response Smoking Status Never (less than 100 in lifetime) entered on: 07/11/20 Sex
--- OUTSIDE RECORDS SUMMARY | 2024-04-11 07:48 | XMS_ITS | Continuity of Care Document ---
Author Organization [facility] VEGETABLE WORKER Oncolog y Address [address] [place] [address]- Care Team Providers Care Way Inspector Name Role Phone Idania MCDONNELL, Wing Gutierrez Primary Care Physician [phone] Encounter [facility] [place] Date(s): 12/04/21 - 01/03/22 [facility] VEGETABLE WORKER Oncology [address] [place] [address] Allergies, Adverse Reactions, Alerts Substance [...] 08/05/20 9:07:00 EDT, Route to Pharmacy Electronically, [facility] STORE 78332, 157.7, cm, 07/14/20 14:27:00 EDT, Height, 85.2, [...] Refills, Maintenance, 11/06/20 10:56:00 EST, REC Powder, [facility]/pharmacy #[id number], Partial fill upon patient request [...] Replace Required Details, Route to Pharmacy Electronically, [facility] 64723, 165.1, cm, 12... Start Date: 11/03/20 Status: [...] EST, [facility] fill[facility] patient request, 165.1, cm, 11/06/20 8:23:00 E... Start Date: 11/06/20 Status: Ordered prochlorperazine 10 mg oral tablet 1 tablet = 10 mg, By Mouth, Every 6 hours, PRN Nausea, # 30 tablet, 2 Refills, Maintenance, 08/27/20 15:33:00 EDT, Tablet, [facility]/pharmacy #[id number], 157.7, cm, 08/27/20 9:55:00 EDT, [...]
--- OUTSIDE RECORDS SUMMARY | 2024-04-11 07:48 | XMS_ITS | Continuity of Care Document ---
Author Organization [facility] CORRUGATED FASTENER DRIVER Oncolog y Address [address] [place] [address]- Care Team Providers Care Architectural Drafting Instructor Name Role Phone Wing Emerson MD Primary Care Physician Encounter [facility] [place] [place] Date(s): 10/22/20 - 11/21/20 [facility] CORRUGATED FASTENER DRIVER Oncology [address] [place] [address] Allergies, Adverse Reactions, Alerts Substance [...] 0 Refills, Soft Stop, 07/14/20 15:31:00 EDT, [facility], 157.7, cm, 07/14/20 14:27:00 EDT, [...] 08/05/20 9:07:00 EDT, Route to Pharmacy Electronically, [facility] STORE 15281, 157.7, cm, 07/14/20 14:27:00 EDT, Height, 85.2, [...] Refills, Maintenance, 11/06/20 10:56:00 EST, REC Powder, [facility]/pharmacy #[id number], Partial fill upon patient request if [...] Replace Required Details, Route to Pharmacy Electronically, [facility] STORE 25054, 165.1, cm, 12... Start Date: 11/03/20 Status: [...] 11/06/20 10:56:00 EST, Route to Pharmacy Electronically, [facility]/pharmacy #[id number], Partial fillupon patient request, 165.1, cm, 11/06/20 8:23:00 E... Start Date: 11/06/20 Status: Ordered prochlorperazine 10 mg oral tablet 1 tablet = 10 mg, By Mouth, Every 6 hours, PRN Nausea, # 30 tablet, 2 Refills, Maintenance, 08/27/20 15:33:00 EDT, Tablet, [facility]/pharmacy #[id number], 157.7, cm, 08/27/20 9:55:00 EDT, Height, 88, kg, 08/27/20 9:55:00 EDT, Dry Weight Start Date: 08/27/20 Status: Ordered Senna S 50 mg-187 mg oral tablet 2 tablet, By Mouth, Daily at bedtime, # 30 tablet, 0 Refills, Maintenance, 11/06/20 10:56:00 EST, Tablet, [facility]/pharmacy #[id number], Partial fill upon patient request if [...] 11/06/20 10:56:00 EST, Route to Pharmacy Electronically, [facility]/pharmacy #[id number], Partial anneliese... Start Date: 11/06/20 Status: [...]
--- OUTSIDE RECORDS SUMMARY | 2024-04-11 07:48 | XMS_ITS | Continuity of Care Document ---
Author Organization [facility] CERAMIC DESIGNER Oncolog y Address [address] [place] [address]- Care Team Providers Care Human Resource Intern Name Role Phone Wing Emerson MD Primary Care Physician Encounter [facility] [place] Date(s): 08/01/20 - 08/31/20 [facility] CERAMIC DESIGNER Oncology [address] [place] [address]- [facility] Allergies, Adverse Reactions, Alerts Substance Reaction Severity [...] 0 Refills, Soft Stop, 07/14/20 15:31:00 EDT, [facility], 157.7, cm, 07/14/20 14:27:00 EDT, [...] 08/05/20 9:07:00 EDT, Route to Pharmacy Electronically, [facility] STORE 03023, 157.7, cm, 07/14/20 14:27:00 EDT, Height, 85.2, [...] 08/31/20 16:45:00 EST, Route to Pharmacy Electronically, [facility]/pharmacy #[id number], Partial fill upon patient request, 157.... Start Date: 08/31/20 Stop Date: 09/18/20 Status: Ordered prochlorperazine 10 mg oral tablet 1 tablet = 10 mg, By Mouth, Every 6 hours, PRN Nausea, # 30 tablet, 2 Refills, Maintenance, 08/27/20 15:33:00 EDT, Tablet, [facility]/pharmacy #[id number], 157.7, cm, 08/27/20 9:55:00 EDT, Height, 88, kg, 08/27/20 9:55:00 EDT, Dry Weight Start Date: 08/27/20 Status: Ordered Senna 8.6 mg oral tablet 17.2 mg, 2, tablet, By Mouth, Daily at bedtime, PRN, # 100 tablet, Refills 0, Tot. Refills 0, Maintenance, for constipation, 08/27/20 15:33:00 EDT, Route to Pharmacy Electronically, [facility]/pharmacy #[id number] Tablet, 157.7, cm, 08/27/20 [...]
--- OUTSIDE RECORDS SUMMARY | 2024-04-11 07:48 | XMS_ITS | Continuity of Care Document ---
Author Organization [facility] Address [address] [place] [address]- Care Team Providers Care Communication Consultant Name Role Phone Wing Emerson MD Primary Care Physician [phone] En[place] [facility] [place] Date(s): 08/08/20 - 09/07/20 [facility] [address] [place] [id number] Attending Physician: AdmtrSri Admitting Physician: Admtr, Ar8 Referring Physician: Admtr, Ar8 Allergies, Adverse Reactions, [...] 0 Refills, Soft Stop, 07/14/20 15:31:00 EDT, [facility], 157.7, cm, 07/14/20 14:27:00 EDT, [...] 08/05/20 9:07:00 EDT, Route to Pharmacy Electronically, [facility] STORE 22720, 157.7, cm, 07/14/20 14:27:00 EDT, Height, 85.2, [...] 08/31/20 16:45:00 EST, Route to Pharmacy Electronically, [facility]/pharmacy #[id number], Partial fill upon patient request, 157.... Start Date: 08/31/20 Stop Date: 09/18/20 Status: Ordered oxyCODONE 5 mg oral tablet 5 mg, 1, tablet, By Mouth, Every 6 hours, PRN, # 20 tablet, Refills 0, Tot. Refills 0, Acute 09/20/20 0:00:00 EST, as needed for pain, 09/18/20 0:15:00 EST, Route to Pharmacy Electronically, [facility]/pharmacy #[id number], Partial fill upon patient request, 157.7... Start Date: 09/18/20 Stop Date: 09/20/20 Status: Ordered prochlorperazine 10 mg oral tablet 1 tablet = 10 mg, By Mouth, Every 6 hours, PRN Nausea, # 30 tablet, 2 Refills, Maintenance, 08/27/20 15:33:00 EDT, Tablet, [facility]/pharmacy #[id number], 157.7, cm, 08/27/20 9:55:00 EDT, Height, 88, kg, 08/27/20 9:55:00 EDT, Dry Weight Start Date: 08/27/20 Status: Ordered Senna 8.6 mg oral tablet 17.2 mg, 2, tablet, By Mouth, Daily at bedtime, PRN, # 100 tablet, Refills 0, Tot. Refills 0, Maintenance, for constipation, 08/27/20 15:33:00 EDT, Route to Pharmacy Electronically, [facility]/pharmacy #[id number] Tablet, 157.7, cm, 08/27/20 9:55:00 [...]
--- OUTSIDE RECORDS SUMMARY | 2024-04-11 07:48 | XMS_ITS | Continuity of Care Document ---
Author Organization [facility] C ancer Care Address [address] [place] [address]- Care Team Providers Care Deburring Technician Name Role Phone Idania MCDONNELL, Wing Gutierrez Primary Care Physician En[place] [facility] [place](s[place] 12/16/20 - 01/15/21 [facility] Care [address] [place] [id number] Attending Physician: AdmSri donahue Admitting Physician: Admtr, [...] 0 Refills, Soft Stop, 07/14/20 15:31:00 EDT, [facility], 157.7, cm, 07/14/20 14:27:00 EDT, Height, [...] 08/05/20 9:07:00 EDT, Route to Pharmacy Electronically, [facility] STORE 20709, 157.7, cm, 07/14/20 14:27:00 EDT, Height, 85.2, [...] Refills, Maintenance, 11/06/20 10:56:00 EST, REC Powder, [facility]/pharmacy #[id number], Partial fill upon patient [...] Replace Required Details, Route to Pharmacy Electronically, [facility] 86201, 165.1, cm, 12... Start Date: 11/03/20 Status: [...] 11/06/20 10:56:00 EST, Route to Pharmacy Electronically, [facility]/pharmacy #[id number], Partial fillupon patient request, 165.1, cm, 11/06/20 8:23:00 E... Start Date: 11/06/20 Status: Ordered prochlorperazine 10 mg oral tablet 1 tablet = 10 mg, By Mouth, Every 6 hours, PRN Nausea, # 30 tablet, 2 Refills, Maintenance, 08/27/20 15:33:00 EDT, Tablet, [facility]/pharmacy #[id number], 157.7, cm, 08/27/20 9:55:00 EDT, Height, 88, kg, 08/27/20 9:55:00 EDT, Dry Weight Start Date: 08/27/20 Status: Ordered Senna S 50 mg-187 mg oral tablet 2 tablet, By Mouth, Daily at bedtime, # 30 tablet, 0 Refills, Maintenance, 11/06/20 10:56:00 EST, Tablet, [facility]/pharmacy #[id number], Partial fill upon patient [...] 11/06/20 10:56:00 EST, Route to Pharmacy Electronically, [facility]/pharmacy #[id number], Partial anneliese... Start Date: [...]
--- OUTSIDE RECORDS SUMMARY | 2024-04-11 07:48 | XMS_ITS | Continuity of Care Document ---
Author Organization [facility] LITHARGE MILL OPERATOR Oncolog y Address [address] [place] [address]- Care Team Providers Care Arranging Funeral Director Name Role Phone Wing Emerson MD Primary Care Physician [place] [facility] [place] [facility] [place](s): 10/23/20 - 11/22/20 [facility] LITHARGE MILL OPERATOR Oncology [address] [place] [address] Allergies, Adverse Reactions, Alerts Substance Reaction Severity Status sulfa drugs Stomach pain Active Levaquin Allergy to sulfa drugs Activ e Darvocet-N 100 Allergy to sulfa drugs Act lauar Medications albuterol 90 mcg/inh inhalation powder 2 [...] 0 Refills, Soft Stop, 07/14/20 15:31:00 EDT, [facility], 157.7, cm, 07/14/20 14:27:00 EDT, [...] 08/05/20 9:07:00 EDT, Route to Pharmacy Electronically, [facility] STORE 35432, 157.7, cm, 07/14/20 14:27:00 EDT, Height, 85.2, [...] Refills, Maintenance, 11/06/20 10:56:00 EST, REC Powder, [facility]/pharmacy #[id number], Partial fill upon patient request if [...] Replace Required Details, Route to Pharmacy Electronically, [facility] STORE 66579, 165.1, cm, 12... Start Date: 11/03/20 Status: [...] Route to Pharmacy Electronically, [facility]/pharmacy #[id number], Partial fillupon patient request, 165.1, cm, 11/06/20 8:23:00 E... Start Date: 11/06/20 Status: Ordered prochlorperazine 10 mg oral tablet 1 tablet = 10 mg, By Mouth, Every 6 hours, PRN Nausea, # 30 tablet, 2 Refills, Maintenance, 08/27/20 15:33:00 EDT, Tablet, [facility]/pharmacy #[id number], 157.7, cm, 08/27/20 9:55:00 EDT, Height, 88, kg, 08/27/20 9:55:00 EDT, Dry Weight Start Date: 08/27/20 Status: Ordered Senna S 50 mg-187 mg oral tablet 2 tablet, By Mouth, Daily at bedtime, # 30 tablet, 0 Refills, Maintenance, 11/06/20 10:56:00 EST, Tablet, [facility]/pharmacy #[id number], Partial fill upon patient request if [...] Route to Pharmacy Electronically, [facility]/pharmacy #[id number], Partial anneliese... Start Date: 11/06/20 Status: [...]
--- OUTSIDE RECORDS SUMMARY | 2024-04-11 07:48 | XMS_ITS | Continuity of Care Document ---
Author Organization [facility] CHENILLE MACHINE OPERATOR Oncolog y Address [address] [place] [address]- Care Team Providers Care Salesperson Furs Name Role Phone Wing Emerson MD Primary Care Physician [place] [facility] [place] 09/17/20 - 10/17/20 [facility] CHENILLE MACHINE OPERATOR Oncology [address] [place] [address] Allergies, Adverse Reactions, Alerts Substance Reaction Severity [...] 0 Refills, Soft Stop, 07/14/20 15:31:00 EDT, [facility], 157.7, cm, 07/14/20 14:27:00 EDT, Height, [...] 08/05/20 9:07:00 EDT, Route to Pharmacy Electronically, [facility] 50689, 157.7, cm, 07/14/20 14:27:00 EDT, Height, 85.2, [...] Replace Required Details, Route to Pharmacy Electronically, [facility] STORE 84738, 157.1, cm, 12... Start Date: 10/08/20 Status: [...] 09/24/20 10:02:00 EST, Route to Pharmacy Electronically, [facility]/pharmacy #[id number], Partial fill upon patient request, 157.7, cm, 09/18/20... Start Date: 09/24/20 Status: Ordered prochlorperazine 10 mg oral tablet 1 tablet = 10 mg, By Mouth, Every 6 hours, PRN Nausea, # 30 tablet, 2 Refills, Maintenance, 08/27/20 15:33:00 EDT, Tablet, [facility]/pharmacy #0693, 157.7, cm, 08/27/20 9:55:00 EDT, Height, 88, kg, 08/27/20 9:55:00 EDT, Dry Weight Start Date: 08/27/20 Status: Ordered Senna 8.6 mg oral tablet 17.2 mg, 2, tablet, By Mouth, Daily at bedtime, PRN, # 100 tablet, Refills 0, Tot. Refills 0, Maintenance, for constipation, 08/27/20 15:33:00 EDT, Route to Pharmacy Electronically, [facility]/pharmacy #[id number] Tablet, 157.7, cm, 08/27/20 9:55:00 [...]
--- OUTSIDE RECORDS SUMMARY | 2024-04-11 07:48 | XMS_ITS | Continuity of Care Document ---
Author Organization [facility] MECHANISM ASSEMBLER Oncolog y Address [address] [place] [address]- Care Team Providers Care Animal Care Taker Name Role Phone Idania MCDONNELL, Wing Gutierrez Primary Care Physician [phone] [place] [facility] [place](s): 12/17/22 - 01/16/23 [facility] MECHANISM ASSEMBLER Oncology [address] [place] [address] Allergies, Adverse Reactions, Alerts Substance Reaction Severity [...] Reference Physician Member Role: PCP Address: Address: [address] [place] [address]- Care Team Related Persons Name: LISA CAO Address: home [address] [place] [address]
--- OUTSIDE RECORDS SUMMARY | 2024-04-11 07:49 | XMS_ITS | Continuity of Care Document ---
Author Organization [facility] Hanh Arce Address [address] [place] [address], [address] [place] [address]- Care Team Providers Care Hospice Administrator Name Role Phone Idania MCDONNELL, Wing Gutierrez Primary Care Physician [phone] Encounter [id number] Date(s): 08/06/20 - 09/05/20 [facility] [address] [employer], [address] [place] [address]- Attending Physician: Admtr, Sri Admitting Physician: Admtr, Ar8 Referring Physician: Admtr, [...] 0 Refills, Soft Stop, 07/14/20 15:31:00 EDT, [facility], 157.7, cm, 07/14/20 14:27:00 [...] 08/05/20 9:07:00 EDT, Route to Pharmacy Electronically, [facility] STORE [address]40, 157.7, cm, 07/14/20 14:27:00 EDT, Height, 85.2, [...] 08/31/20 16:45:00 EST, Route to Pharmacy Electronically, [facility]/pharmacy #[id number], Partial fill upon patient request, 157.... Start Date: 08/31/20 Stop Date: 09/18/20 Status: Ordered prochlorperazine 10 mg oral tablet 1 tablet = 10 mg, By Mouth, Every 6 hours, PRN Nausea, # 30 tablet, 2 Refills, Maintenance, 08/27/20 15:33:00 EDT, Tablet, [facility]/pharmacy #[id number], 157.7, cm, 08/27/20 9:55:00 EDT, Height, 88, kg, 08/27/20 9:55:00 EDT, Dry Weight Start Date: 08/27/20 Status: Ordered Senna 8.6 mg oral tablet 17.2 mg, 2, tablet, By Mouth, Daily at bedtime, PRN, # 100 tablet, Refills 0, Tot. Refills 0, Maintenance, for constipation, 08/27/20 15:33:00 EDT, Route to Pharmacy Electronically, [facility]/pharmacy #[id number] Tablet, 157.7, cm, 08/27/20 9:55:00 EDT, [...]
--- OUTSIDE RECORDS SUMMARY | 2024-04-11 07:49 | XMS_ITS | Patient Health Record ---
Author Organization [facility] Address [address] [place] [id number] Care Team Providers Care Cork Molder Name Role Phone Wing Emerson Primary Care Provider Huber Cobos Jr Unavailable ALLERGIES Allergen (clinical drug ingredient) Drug/Non Drug Allergy documented on EMR Reaction Allergy Type Onset Date Status Substance with sulfonamide structure and antibacterial mechanism of action (substance) Sulfa Antibiotics Unknown Drug Allergy Active Levaquin Unknown Drug Allergy Active Darvocet A500 Unknown Drug Allergy Act laura REASON FOR REFERRAL No Information MEDICATIONS Medication SIG (Take, Route, Frequency, Duration) Notes Start Date End Date Status Furosemide 20 MG TAKE 1 TABLET BY ARNALDO TH EVERY 48 HOURS NEEDED FOR EDEMA Oral for 90 Active Carvedilol 12.5 MG TAKE 1 TABLET BY ARNALDO TH TWICE A DAY FOR 90 DAYS Oral for 90 Active traMADol HCl 50 MG TAKE 2 TABLETS BY MO UTH 3 TIMES A DAY Oral for 28 Active Amiodarone HCl 200 MG TAKE 1/2 TABLET BY MOUTH ONCE DAILY Oral for 90 Active Omeprazole 20 MG Oral for 90 A ctive Levothyroxine Sodium 25 MCG Oral for 90 Active Eliquis 5 MG TAKE 1 TABLET BY ARNALDO TH TWICE A DAY Oral for 30 Active Diphenoxylate-Atropine 2.5-0.025 MG TAKE 1 TABLET BY MOUTH 4 TIMES A DAY NEEDED FOR DIARRHEA. Oral for 5 Active Vitamin D3 Active Atorvastatin Calcium 20 MG TAKE 1 TABLET BY MOUTH EVERY DAY Oral for 90 Active clonazePAM 2 MG TAKE 1 TABLET BY ARNALDO TH NIGHTLY AT BEDTIME NEEDED Oral for 28 Active Valsartan 160 MG TAKE 1 TABLET BY ARNALDO TH EVERY DAY Oral for 90 Active Loratadine 10 MG TAKE 1 TABLET BY ARNALDO TH EVERY DAY Oral for 90 Active IMMUNIZATIONS Vaccine Route Administration Date Status Comme nts Influenza Unknown 07/01/2021 Administered SOCIAL HISTORY Tobacco Use: Social History Observation Description Date Details (start date - stop date) Never Smoker NA - NA Sex Assigned At : Social History Observation Description Sex Assigned At Unknown Tobacco Use/Smoking Question Answer Notes Patient is a nonsmoker Alcohol Screen Question Answer Notes Did you have a drink containing alcohol in the p ast year? 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) PLAN OF TREATMENT Future Test Test Name Order Date UPPER GI ENDOSCOPY 04/15/2022 COLONOSCOPY 04/15/2022 Insurance Providers Payer Name Payer Address Payer Phone Subscriber Number Group Number Insured Name Patient Relationship to Insured Coverage Start Date Coverage End Date MEDICARE OF [employer] [address] [place] [id number] FIONA CAO Self - patient is the insured MEDICAL (GENERAL) HISTORY Medical History History ICD Code Uterine cancer, status post chemoradiati on Atrial fibrillation asthma - mild intermittent Cardiomyopathy Hypertension Elevated cholesterol Coronary artery disease Surgical History Surgery Date(Month/Year) hernia repair x2 umbilical Pacemaker defibrillator 2019 hysterectomy/ bladder sling 2020 groin 2 years ago left hip replacement 09/2021
--- OUTSIDE RECORDS SUMMARY | 2024-04-11 07:49 | XMS_ITS | Continuity of Care Document ---
Author Organization [facility] APPLICATIONS ADMINISTRATOR Oncolog y Address [address] [place] [address]- Care Team Providers Care Career Services Assistant Name Role Phone Wing Emerson MD Primary Care Physician [place] [facility] [place]23[place]20 - 07/23/20 [facility] APPLICATIONS ADMINISTRATOR Oncology [address] [place] [address]- [facility] Allergies, Adverse Reactions, Alerts Substance Reaction [...] 0 Refills, Soft Stop, 07/14/20 15:31:00 EDT, [facility], 157.7, cm, 07/14/20 14:27:00 EDT, Height, 85.2, kg, 07/14/20 14:27:00 EDT, Dry Weight Start Date: 07/14/20 Status: Ordered loratadine 10 mg oral tablet 10 mg, 1, tablet, By Mouth, Daily, # 30 tablet, Refills 0, Maintenance, 12/26/19 6:45:00 EST Start Date: 12/26/19 Status: Ordered omeprazole 20 mg oral delayed release tablet 1 tablet = 20 mg, By Mouth, Daily, # 30 tablet, 0 Refills, Maintenance, 12/26/19 6:45:00 EST, CR Tablet Start Date: 12/26/19 Status: Ordered Provera 10 mg oral tablet 10 mg, 1, tablet, By Mouth, Daily, # 30 tablet, Refills 1, Tot. Refills 1, Maintenance, 07/14/20 15:03:00 EDT, Route to Pharmacy Electronically, [facility]/pharmacy #[id number], 157.7, cm, 07/14/20 14:27:00 EDT, Height, 85.2, kg, 07/14/20 14:27:00 EDT, Dry Weight Start Date: 07/14/20 Status: Ordered traMADol 50 mg oral tablet [...] Cardiomyopathy(Confirmed) Active Diabetes mellitus(Confirmed) Active Fibromyalgia(Confirmed) Active Endometrial cancer(Confirmed) Active Osteopenia(Confirmed) Active Peripheral edema(Confirmed) Active Social History Social History Type Response Smoking Status Never (less than 100 in lifetime) entered on: 07/11/20 Sex
--- OUTSIDE RECORDS SUMMARY | 2024-04-11 07:49 | XMS_ITS | Continuity of Care Document ---
Author Organization [facility] Address [address] [place] [address]- Care Team Providers Care Windows 7 Deployment Lead Name Role Phone Wing Emerson MD Primary Care Physician Encounter [facility] Date(s): 04/20/22 - 08/04/22 [facility] Care [address] [place] [id number] Discharge Disposition: A-D/C Home Attending Physician: [...] 30 supp, 1 Refills, Maintenance, 06/04/22 13:59:00EDT, [facility]/pharmacy #[id number], Partial fill upon patient request if the prescription is for a schedule IIopioid drug., 157.7, cm, 06/04/22 13:24:00 EDT, Hei... Start Date: 06/04/22 Stop Date: 08/03/22 Status: Ordered MiraLax oral powder for reconstitution = 17 Gm, By Mouth, Daily, dissolve in water before taking, # 255 Gm, 0 Refills, Maintenance, 11/06/20 10:56:00 EST, REC Powder, [facility]/pharmacy #[id number], Partial fill upon patient request if the [...] oldest [Reference Range]: 1 Height 157.7 cm (06/04/22 1:24 PM) Weight 82.2 kg (06/04/22 1:24 PM) Pulse Rate [55-90 bpm] 75 bpm (06/04/22 1:24 PM) Body Mass Index [18.5-24.99] 33.05 *>HHI* (06/04/22 1:24 PM) Blood Pressure [90-138/55-84 mm Hg] 141/ 54mm Hg *H* (06/04/22 1:24 PM) Temperature [96.8-100.4 DegF] 97.5 DegF (06/04/22 1:24 PM) Blood pressure sites Arm, left (06/04/22 1:24 PM) Temperature Route Temporal (06/04/22 1:24 PM) Dry Weight 82.2 kg (06/04/22 1:24 PM) Weight Obtained Via Standing scale (06/04/22 1:24 PM) Dry Weight Obtained Via Standing scale (06/04/22 1:24 PM) Social History Social History Type Response Smoking Status Never (less than 100 in lifetime) entered on: 07/11/20 Sex Patient Care team information Personnel Name: Idania MCDONNELL, Wing Gutierrez Address: Address: [address] [place] [id number]
--- OUTSIDE RECORDS SUMMARY | 2024-04-11 07:49 | XMS_ITS | Continuity of Care Document ---
Author Organization [facility] Address [address] [place] [address]- Care Team Providers Care Appian Bpm Developer Name Role Phone Wing Emerson MD Primary Care Physician Encounter [facility] Date(s): 08/08/20 - 12/09/20 [facility] Care [address], [place] [address] Discharge Disposition: A-D/C Home Attending Physician: Karena [...] 0 Refills, Soft Stop, 07/14/20 15:31:00 EDT, [facility], 157.7, cm, 07/14/20 14:27:00 EDT, [...] 9:07:00 EDT, Route to Pharmacy Electronically, [facility] STORE [id number], 157.7, cm, 07/14/20 14:27:00 EDT, Height, 85.2, [...] REC Powder, [facility]/pharmacy #[id number], Partial fill upon patient request if [...] Required Details, Route to Pharmacy Electronically, [facility] STORE [id number], 165.1, cm, 12... Start Date: 11/03/20 Status: [...] 10:56:00 EST, Route to Pharmacy Electronically, [facility]/pharmacy #[id number], Partial fillupon patient request, 165.1, cm, 11/06/20 8:23:00 E... Start Date: 11/06/20 Status: Ordered prochlorperazine 10 mg oral tablet 1 tablet = 10 mg, By Mouth, Every 6 hours, PRN Nausea, # 30 tablet, 2 Refills, Maintenance, 08/27/20 15:33:00 EDT, Tablet, [facility]/pharmacy #[id number], 157.7, cm, 08/27/20 9:55:00 EDT, Height, 88, kg, 08/27/20 9:55:00 EDT, Dry Weight Start Date: 08/27/20 Status: Ordered Senna S 50 mg-187 mg oral tablet 2 tablet, By Mouth, Daily at bedtime, # 30 tablet, 0 Refills, Maintenance, 11/06/20 10:56:00 EST, Tablet, [facility]/pharmacy #[id number], Partial fill upon patient request if the [...] 10:56:00 EST, Route to Pharmacy Electronically, [facility]/pharmacy #[id number], Partial anneliese... Start Date: 11/06/20 Status: Ordered [...] oldest [Reference Range]: 1 2 3 Height 157.1 cm (10/09/20 9:51 AM) 157.7 cm (10/09/20 9:35 AM) 157.7 cm (09/18/20 10:19 AM) Oxygen Saturation [94-100 %] 97 % (10/09/20 9:35 AM) 99 % (09/18/20 9:37 AM) 100 % (08/28/20 9:52 AM) Pulse Rate [55-90 bpm] 67 bpm (10/09/20 9:35 AM) 67 bpm (09/18/20 9:37 AM) 61 bpm (08/28/20 9:52 AM) Blood Pressure [90-138/55-84 mm Hg] 143/69mm Hg *H* (10/09/20 9:35 AM) 159/53mm Hg *H* (09/18/20 9:37 AM) 152/58mm Hg *H* (08/28/20 9:52 AM) Temperature [96.8-100.4 DegF] 98.3 DegF (10/09/20 9:35 AM) 99.3 DegF (09/18/20 9:37 AM) 98.1 DegF (08/28/20 9:52 AM) Mode of Delivery (Oxygen) Room air (10/09/20 9:35 AM) Room air (09/18/20 9:37 AM) Room air (08/28/20 9:52 AM) Blood pressure sites Arm, right (10/09/20 9:35 AM) Arm, left (09/18/20 9:37 AM) Arm, left (08/28/20 9:52 AM) Temperature Route Temporal (10/09/20 9:51 AM) Oral (10/09/20 9:35 AM) Temporal (09/18/20 10:19 AM) Social History Social History Type Response Smoking Status Never (less than 100 in lifetime) entered on: 07/11/20 Sex
--- OUTSIDE RECORDS SUMMARY | 2024-04-11 07:49 | XMS_ITS | Continuity of Care Document ---
Author Organization [facility] Address [address] [place] [address]- Care Team Providers Care Manager Molecular Name Role Phone Idania MCDONNELL, Wing Gutierrez Primary Care Physician [phone] Encounter [facility] ACCT R [id number] Date(s): 09/02/22 - 10/02/22 [facility] [address] [place] [address]- Attending Physician: Sri Dickey Admitting Physician: AdmSri donahue Referring Physician: AdmtrSri Allergies, Adverse Reactions, Alerts Substance Reaction Severity [...] 30 supp, 1 Refills, Maintenance, 06/04/22 13:59:00EDT, [facility]/pharmacy #[id number], Partial fill upon patient request if the prescription is for a schedule IIopioid drug., 157.7, cm, 06/04/22 13:24:00 EDT, Hei... Start Date: 06/04/22 Stop Date: 08/03/22 Status: Ordered MiraLax oral powder for reconstitution = 17 Gm, By Mouth, Daily, dissolve in water before taking, # 255 Gm, 0 Refills, Maintenance, 11/06/20 10:56:00 EST, REC Powder, [facility]/pharmacy #[id number], Partial fill upon patient request if the [...] Reference Physician Member Role: PCP Address: Address: [address] [place] [address]- Care Team Related Persons Name: LISA CAO Address: home [address] [place] [id number]
--- OUTSIDE RECORDS SUMMARY | 2024-04-11 07:49 | XMS_ITS | Continuity of Care Document ---
Author Organization [facility] Address [address] [place] [address]- Care Team Providers Care Batteryman Name Role Phone Idania MCDONNELL, Wing Gutierrez Primary Care Physician Encounter [facility] ACCT R [id number] Date(s): 12/17/21 - 01/16/22 [facility] Care [address] [place] [id number] Attending Physician: Sri Dickey Admitting Physician: AdmtrSri Referring Physician: Admtr Ar8 Allergies, Adverse Reactions, Alerts Substance Reaction [...] EDT, Route to Pharmacy Electronically, [facility] STORE [address], 157.7, cm, 07/14/20 14:27:00 EDT, Height, 85.2, [...] 11/06/20 10:56:00 EST, REC Powder, [facility]/pharmacy #[id number], Partial fill upon patient request if [...] Details, Route to Pharmacy Electronically, [facility] STORE [address], 165.1, cm, 12... Start Date: 11/03/20 Status: [...] EST, Route to Pharmacy Electronically, [facility]/pharmacy #[id number], Partial fillupon patient request, 165.1, cm, 11/06/20 8:23:00 E... Start Date: 11/06/20 Status: Ordered prochlorperazine 10 mg oral tablet 1 tablet = 10 mg, By Mouth, Every 6 hours, PRN Nausea, # 30 tablet, 2 Refills, Maintenance, 08/27/20 15:33:00 EDT, Tablet, [facility]/pharmacy #[id number], 157.7, cm, 08/27/20 9:55:00 EDT, Height, [...]
--- OUTSIDE RECORDS SUMMARY | 2024-04-11 07:49 | XMS_ITS | Continuity of Care Document ---
Author Organization [facility] Address [address] [place] [address]- Care Team Providers Care Rock Picker Name Role Phone Wing Emerson MD Primary Care Physician [place] [facility] Date(s[place] 05/21/20 - 05/22/[address] [address]- [facility] Discharge Disposition: A-D/C Home Attending Physician: Kosta Barba MD Admitting Physician: Kosta Barba MD Referring Physician: Kosta Barba MD Allergies, Adverse Reactions, Alerts Substance Reaction [...] Effective Dates Status Health Status Inform ant Cardiomyopathy(Confirmed) Active Results Radiology Reports * Exam Date Time Procedure Performing Provider Status 05/22/20 10:04 AM Chest 2 Views Frontal and Lat Lauren Rothman (Verified) Notes: (Chest 2 Views Frontal and Lat) Reason For Exam: post- ICD placement;Other: RESULT: Chest 2 Views Frontal and Lat Chest 2 Views Frontal and Lat INDICATION: post- ICD placement; Clinical Question(s): Postop; Hx of Present Illness: irreg heart rhythm / Postop COMPARISON: None. FINDINGS: LINES AND TUBES: Triple-lead left subclavian pacer/AICD wires are intact. LUNGS AND PLEURA: Mild bibasilar atelectasis. Trace bilateral pleural effusions. No pneumothorax. HEART, MEDIASTINUM AND LULU: Mild prominence of the cardiac silhouette. Aorta is mildly calcified. BONES AND SOFT TISSUES: No acute abnormality. Severe degenerative change of both shoulders. IMPRESSION: No pneumothorax. Trace bilateral pleural effusions and bibasilar atelectasis. WSN: [id number] Ordering Physician: Estefany Holly Dictated By: Toñito Mcclain MD Dictated Date/Time: 05/22/20 11:26 a Reviewed By: Toñito Mcclain MD Signed By: Toñito Mcclain MD Signed Date/Time: 05/22/20 11:26 am Transcribed By: RASHEL Transcribed Date/Time: 05/22/20 11:25 am Vital Signs Most recent to oldest [Reference Range]: 1 2 3 Weight 87.9 kg (05/21/20 10:16 PM) 82.2 kg (05/21/20 11:48 AM) Oxygen Saturation [94-100 %] 98 % (05/22/20 9:01 AM) 97 % (05/22/20 2:48 AM) 96 % (05/21/20 7:47 PM) Pulse Rate [55-90 bpm] 50 bpm *L* (05/22/20 9:13 AM) 50 bpm *L* (05/22/20 9:01 AM) 50 bpm *L* (05/22/20 2:48 AM) Blood Pressure [90-138/55-84 mm Hg] 160/75mm Hg *H* (05/22/20 9:13 AM) 150/55mm Hg *H* (05/22/20 9:01 AM) 165/75mm Hg *H* (05/22/20 8:59 AM) Respiratory Rate [16-30 br/min] 20 br/min (05/22/20 9:01 AM) 16 br/min (05/22/20 2:48 AM) 18 br/min (05/21/20 10:08 PM) Temperature [96.8-100.4 DegF] 97.5 DegF (05/22/20 9:01 AM) 97.9 DegF (05/22/20 2:48 AM) 97.5 DegF (05/21/20 7:47 PM) Mode of Delivery (Oxygen) Room air (05/22/20 9:01 AM) Room air (05/22/20 2:48 AM) Room air (05/21/20 7:47 PM) Blood pressure sites Arm, left (05/22/20 9:01 AM) Arm, right (05/22/20 2:48 AM) Arm, right (05/21/20 7:47 PM) Temperature Route Oral (05/22/20 9:01 AM) Temporal (05/22/20 2:48 AM) Temporal (05/21/20 7:47 PM) Dry Weight 82.2 kg (05/21/20 11:48 AM) Weight Obtained Via Bed scale (05/21/20 10:16 PM)
--- OUTSIDE RECORDS SUMMARY | 2024-04-11 07:49 | XMS_ITS | Continuity of Care Document ---
Author Organization [facility] ancer Care Address [address] [place] [address]- Encounter [facility] Date(s): 06/07/23 - 07/07/23 [facility] [address] [place], [place] [address] Attending Physician: Sri Dickey Admitting Physician: Sri Dickey Referring Physician: AdmtrSri Allergies, Adverse Reactions, Alerts [...] Acute 08/31/23 8:00:00 EDT, 06/02/23 15:57:00 EDT, [facility]/pharmacy #[id number], Partial fill upon patient request if the [...] Team Personnel Name: Blanca Garcia MA Position: Salud Onco RN Member Role: Primary Care Nurse Name: Katia Cervantes RN Position: S RN Member Role: Primary Care Nurse Care Team Related Persons Name: LISA CAO Address: home [address] [place] [id number]
--- OUTSIDE RECORDS SUMMARY | 2024-04-11 07:49 | XMS_ITS | Continuity of Care Document ---
Author Organization [facility] Address [address] [place] [address]- [facility] [facility] [place] 10/21/23 - 01/07/24 [facility] INTERMEDI[facility] PROJECT MANA[facility] Oncology [address] [place], [place] [address] Attending Physician: Karena Chamorro MD Admitting [...] Persons Name: LISA CAO Address: home [address] [place] [id number]
--- OUTSIDE RECORDS SUMMARY | 2024-04-11 07:49 | XMS_ITS | Continuity of Care Document ---
Author Organization [facility] Address [address] [place] [id number]- [place] [facility] [place]23 - 02/24/[address] [address] Discharge Disposition: A-D/C Home Attending Physician: Veronica [...] Refills, Maintenance, 02/24/23 9:07:00 EDT, EC Tablet, [facility], Partial fill upon patient [...] 02/24/23 9:04:00 EDT, Route to Pharmacy Electronically, [facility], Partial fill upon patient [...] Confirmed Active Vaginal lesion Confirmed Active Results Radiology Reports * Exam Date Time Procedure Performing Provider Status 02/24/23 8:43 AM Chest 2 Views Fronta l and Lat Stacy Lowry; Auth (Verified) Notes: (Chest 2 Views Frontal and Lat) Reason For Exam: s/p Watchman device placement.;Postop RESULT: Chest 2 Views Frontal and Lat Chest 2 Views Frontal and Lat Reason: Postop; s p Watchman device placement.; Clinical Question(s): Postop COMPARISON: Multiple priors, most recent CT 12/23/2021, chest x-ray 05/22/2020 FINDINGS: LINES AND TUBES: Dual-lead left subclavian pacer/AICD wires are intact. LUNGS AND PLEURA: Mild left lower lobe opacity, likely atelectasis. Normal pulmonary vascularity. No evidence of pleural effusion. No pneumothorax. HEART, MEDIASTINUM AND LULU: Heart is normal in size. Status post left atrial occlusion device. Normal mediastinal and hilar contour. BONES AND SOFT TISSUES: No acute abnormality. Severe right greater than left degenerative change of the glenohumeral joints. IMPRESSION: No acute abnormality status post left atrial occlusion device. I have personally reviewed the images and I agree with this report. WSN: [id number] Ordering Physician: Byron Mix Dictated By: Carey Delarosa MD Dictated Date/Time: 02/24/23 9:12 am Reviewed By: Kena Hoskins MD Signed By: Kena Hoskins MD Signed Date/Time: 02/24/23 9:17 am Transcribed By: RASHEL Transcribed Date/Time: 02/24/23 9:01 am Vital Signs Most recent to oldest [Reference Range]: 1 2 3 Height 165.1 cm (02/24/23 9:09 AM) 165.1 cm (02/24/23 6:14 AM) 165.1 cm (02/24/23 2:15 AM) Weight 82.7 kg (02/24/23 7:00 AM) 84.5 kg (02/23/23 9:19 AM) Oxygen Saturation [94-100 %] 97 % (02/24/23 9:09 AM) 96 % (02/24/23 6:14 AM) 93 % *L* (02/24/23 2:15 AM) Pulse Rate [55-90 bpm] 74 bpm (02/24/23 9:09 AM) 68 bpm (02/24/23 6:14 AM) 64 bpm (02/24/23 2:15 AM) Body Mass Index [18.5-24.99 kg/m2] 31 kg/m2 *>HHI* (02/23/23 9:19 AM) Blood Pressure [90-138/55-84 mm Hg] 113/46mm Hg (02/24/23 9:09 AM) 109/71mm Hg (02/24/23 6:14 AM) 102/54mm Hg (02/24/23 2:15 AM) Respiratory Rate [16-30 br/min] 18 br/min (02/24/23 9:09 AM) 16 br/min (02/24/23 6:14 AM) 16 br/min (02/24/23 2:15 AM) Temperature [96.8-100.4 DegF] 98.8 DegF (02/24/23 9:09 AM) 97.8 DegF (02/24/23 2:15 AM) 97.7 DegF (02/24/23 12:01 AM) Liters per Minute 0 L/min (02/24/23 9:09 AM) 0 L/min (02/23/23 8:30 PM) 2 L/min (02/23/23 3:30 PM) Mode of Delivery (Oxygen) Room air (02/24/23 9:09 AM) Room air (02/24/23 6:14 AM) Room air (02/24/23 2:15 AM) Blood pressure sites Arm, left (02/24/23 9:09 AM) Arm, right (02/24/23 6:14 AM) Arm, right (02/24/23 2:15 AM) Temperature Route Oral (02/24/23 9:09 AM) Oral (02/24/23 2:15 AM) Oral (02/24/23 12:01 AM) Weight Obtained Via Bed scale (02/24/23 7:00 AM) Standing scale (02/23/23 9:19 AM) Social History Social History Type Response Smoking Status Never (less than 100 in lifetime) entered on: 07/11/20 Sex Note * Event Display: Hemodynamic Procedure Report Authored Date: [id number] * Katia Cervantes RN: PERFORM Event Display: Discharge/Transfer Note Hospital Authored Date: [id number] Nursing Discharge Note Entered On: 02/24/2023 10:44 EDT Performed On: 02/24/2023 10:44 EDT by Katia Cervantes RN Nursing Discharge Note 2 Discharge Time : 02/24/2023 10:44 EDT Discharge Level of Care at Discharge : Home/Shelter/Foster Care Patient Left Unit Via : Wheelchair Patient Accompanied Off Unit with : Responsible adult DC Instructions Provided & Signed by Pt : Yes Patient Understands D/C Instructions : Yes Patient Instructions Discharge Signed : Yes Did Pt have Specialty Bed or Wound Vac : No Katia Cervantes RN - 02/24/2023 10:44 EDT * Sendy Morales RN: PERFORM Event Display: Patient Education/Instruction Authored Date: Inpatient Adult Discharge Instructions [address] [address] Name: FIONA CAO : 1950 Visit: 02/23/2023 07:47:00 Current Date: 02/24/2023 09:49 Account: [id number] Inpatient Adult Discharge Instructions We would like to thank you for allowing us to assist you with your healthcare needs. The following includes patient education materials and information regarding your injury/illness. Our entire staffstrives to provide an excellent experience for our patients and their families. PLEASE ENSURE YOU FOLLOW-UP PER THE INSTRUCTIONS BELOW! ?? YOUR OPINION IS IMPORTANT TO US! Please complete the survey you may receive by mail or email. Your feedback will be used to make improvements to the healthcare experiences of our patients and their families. Surveys are administered by [employer] ?? If further treatment with your primary care physician or another doctor is recommended, it is important for you to keep the appointment. Call your primary care physician or return to the Emergency Department immediately if your condition worsens, fails to improve, or new symptoms develop. If you need to find a doctor, you can call [facility] Link for a referral at [phone] or toll free at [phone]) or log in to [email or web address].. ?? You can view and manage your care through the patient portal or by using a health care elizabeth of your choosing. [employer] is a website that allows you to securely view your medical information including your hospital discharge summary, office visit summaries, medications and follow-up visits. You can also request appointments, renew medications, and request access to your medical information using a health care elizabeth of your choosing, or just ask a question. You can enroll at [email or web address] or register during your next office visit. You have been discharged from [facility], Patient Care Unit: M7. If you have any questions regarding these instructions after you leave, please call us and we will be happy to assist you. [facility] Your Care Team Attending Physician Sophie MCDONNELL, Veronica Brannon Discharging Providers Dominguez MCDONNELL, Byron Reason for Your Visit AFIB WATCHMAN HV2 HIRO 9AM Tests Performed Below is a partial list of the tests performed during your hospitalization. You may have had other tests and procedures not included in this list. Please discuss all test results with your provider. BUN CBC COVID-19 (2019 Novel Coronavirus) PCR?-- Results Pending -- Creatinine Electrolytes INR Lytes Type and Screen XR Chest 2 Views Frontal and Lat ? You will be contacted within 72 hours with your results. Advance Directive . Discharge Vitals Temperature: 98.8 DegF Height: 165.1 cm Pulse Rate: 74 bpm Weight: 82.7 kg Respiratory Rate: 18 br/min Body Mass Index:??31 kg/m2??Critical Systolic Blood Pressure: 113 mm Hg Body surface area: 1.97 Diastolic Blood Pressure:??46 mm Hg??Low ?? Oxygen Saturation: 97 % ?? Studies Pending All tests and labs ordered during this hospital stay have been completed unless listed below. Please discuss all pending results with your provider listed above in these instructions. ?? COVID-19 (2019 Novel Coronavirus) PCR What to do next Instructions From Your Doctor Discharge Orders Scheduled Follow-Up Appointments Tuesday 11:00 AM EDT ?? With: Pedro Pablo MCDONNELL, Karena Mahoney Where: [facility] RISK CONTROL PRODUCT LIABILITY DIRECTOR Oncology [address] [facility] 4th [place] [address] [place] [address]- Discharge Medications NASHFIONA :1950 Visit Date:02/23/2023 Medications: Please continue your medications until treatment is completed or stopped by your provider. Medications not listed below should be discontinued. Discuss any questions related to medications with your provider. What How Much When Instructions Next Dose New Aspirin (aspirin 81 mg oral delayed release tablet) 81 Milligram Oral Daily Refills: 1 Pickup at [facility] In the AM? New Clopidogrel (Plavix 75 mg oral tablet) 1 tab(s) Oral Daily Pickup at [facility] 3 In the AM Unchanged Albuterol (albuterol 90 mcg/ inh inhalation powder) 2 puff(s) Inhalation Every 6 hours as needed for as needed as needed Unchanged Alendronate (alendronate 70 mg oral tablet) 1 tab(s) Oral Every week Every week Unchanged amiODARONE (amiodarone 200 mg oral tablet) 0.5 tab(s) Oral Daily In the AM Unchanged Atorvastatin (atorvastatin 20 mg oral tablet) 1 tab(s) Oral Daily Bedtime tonight Unchanged Atropine / Diphenoxylate (atropine-diphenoxylate 0.025 mg-2.5 mg oral tablet) 1 tab(s) Oral 4 times a day as needed for for loose stool as needed Unchanged Carvedilol (carvedilol 12.5 mg oral tablet) 1 tab(s) Oral Twice a day Bedtime Unchanged Cholecalciferol (Vitamin D3 1000 intl units oral capsule) 1 capsule Oral Daily in the AM Unchanged Clonazepam (clonazePAM 2 mg oral tablet) 1 tab(s) Oral 3 times a day as needed for Anxiety as needed Unchanged Furosemide (furosemide 20 mg oral tablet) 1 capsule Oral Every other day Tomorrow in the AM Unchanged Levothyroxine (levothyroxine 25 mcg (0.025 mg) oral capsule) 1 capsule Oral Daily in the AM Unchanged Loratadine (loratadine 10 mg oral tablet) 1 tab(s) Oral Daily in the AM Unchanged Multivitamin Daily in the AM Unchanged Omeprazole (omeprazole 20 mg oral delayed release tablet) 1 tab(s) Oral Daily in the AM Unchanged Tramadol (traMADol 50 mg oral tablet) 1 tab(s) Oral Every 12 hours as needed for for pain as needed Unchanged Valsartan (valsartan 80 mg oral tablet) 1 tab(s) Oral Daily in the AM Pharmacy Information [facility] 3: [address], [place] [id number] [phone] ?? What How Much When Comments Stop Taking apixaban (Eliquis 5 mg oral tablet) 1 tab(s) Oral Twice a day Test Results Below is a partial list of the most recent Laboratory test results done prior to this discharge. You may have had other tests and procedures not included in this list. Please discuss all test resultswith your provider. BUN (02/24/2023) ???BUN - 22 mg/dL CBC (02/24/2023) ???WBC - 7.1 k/mm3???RBC - 3.16 m/mm3???Hgb - 10.3 Gm/dL???Hct - 32.2 %???MCV - 101.9 femtoliters???MCH - 32.6 pg???MCHC - 32.0 g/dL???Platelet Count - 146 k/mm3???RDW-SD - 52.1 femtoliters???MPV - 10.3 femtoliters???Nucleated RBC (Automated) - 0.0 #/100 WBC'S???Abs. NRBC - 0.0 k/mm3 Creatinine (02/24/2023) ???Creatinine-Blood - 1.1 mg/dL???Estimated GFR Creatinine - 56 ML/MIN/1.73 M2 Electrolytes (02/24/2023) ???Sodium - 139 mmol/L???Potassium - 4.7 mmol/L???Chloride - 106 mmol/L???Bicarbonate Level - 28 mmol/L???Anion Gap - 5 INR (02/23/2023) ???INR - 1.0???Protime (PT) - 10.8 seconds Lytes (02/23/2023) ???Sodium - 140 mmol/L???Potassium - 4.8 mmol/L???Chloride - 102 mmol/L???Bicarbonate Level - 28 mmol/L???Anion Gap - 10 Type and Screen (02/23/2023) ???Blood Type - AB Positive???Antibody Screen - Negative Allergies (NKA means No Known Allergies) Darvocet-N 100??(Allergy to sulfa drugs) Levaquin??(Allergy to sulfa drugs) sulfa drugs??(Stomach pain) Problems Active Problems??(12) Atrial fibrillation?? Bone pain?? Cardiomyopathy?? Diabetes mellitus?? Endometrial cancer?? Fibromyalgia?? Obese class I?? Osteopenia?? Peripheral edema?? Recurrent incisional hernia?? Vaginal lesion?? Ventral hernia?? Education Materials Below is the list of Educational Leaflet Providered with your Discharge Instructions. Surgery Left Atrial Appendage Closure Discharge Instructions?? Valuables and Belongings I fully understand and agree that [facility] accepts no responsibility for all my personal property including clothing, toilet articles, radios, jewelry, dentures, hearing aids, rings, money, or any other property that is in my possession or is brought to me after admission. I understand certain valuables may be placed in a hospital safe for a short period of time. I understand that the hospital is not liable for loss or damage due to accident, fire, or other natural occurrence while said property is in the safe. I accept full responsibility for any personal property that I keep with me, and will not hold the hospital responsible in case of loss or disappearance. I acknowledge that i have been encouraged to send valuables and belongings home. ?? Review of Valuable and Belonging List: With patient Date for Pt to Sign Valuables/Belongings: 02/23/23 10:11:00 ?? Valuables & Belongings ?? Clothes Electronic devices Jewelry Monetary Items Personal devices Miscellaneous Medications (Valuables) Valuables at Bedside Jacket, Pants, Shirt, Shoes, Undergarments Cell phone ?? Purse, Wallet ? Valuables Sent Home ? Valuables Sent to Security ? Other Discharge Information ?? Wound Assessment?? Wound Assessment?? Wound Location I: Groin, right ? Pulmonary Rehab Status?? Pulmonary Rehab Discharge Status?? Respiratory Rate: 18 br/min ? Common Emergency Awareness Tips IS IT A STROKE? Act FAST and Check for these signs: FACE Does the face look uneven? ARM Does one arm drift down? SPEECH Does their speech sound strange? TIME Call at any sign of stroke ?? Heart Attack Signs Chest discomfort: Most heart attacks involve discomfort in the center of the chest and lasts more than a few minutes, or goes away and comes back. It can feel like uncomfortable pressure, squeezing, fullness or pain. Discomfort in upper body: Symptoms can include pain or discomfort in one or both arms, back, neck, jaw or stomach. Shortness of breath: With or without discomfort. Other signs: Breaking out in a cold sweat, nausea, or lightheaded. Remember, MINUTES DO MATTER. If you experience any of these heart attack warning signs, call to get immediate medical attention! ?? Smoking can increase your chances of developing chronic health problems and can cause harmful effects to other family members in your house. If you smoke, you are strongly encouraged to quit. Please call [facility] Link at [phone] or [phone]) or log in to [email or web address] for referrals to smoking cessation programs. ?? 728 Suicide & Crisis Lifeline is available 23/05 if you or someone you know needs to find a reason to keep living. By calling 457 you'll be connected to a skilled, trained counselor at a crisis center in your area. INPATIENT DISCHARGE INSTRUCTIONS SIGNATURE JS FIONA CAO Location:[facility] Registration Date and Time:02/23/2023 07:47 EDT I FIONA CAO, have received the above patient education materials/instructions and have verbalizedunderstanding. If ambulance or transport services are being used I further acknowledge being given a choice of service. ?? If you need to contact me, please call me at this number: . Patient/Public Health Outreach Worker Name: Patient/Public Health Outreach Worker Signature: Relationship to Patient: Witness Name/Signature: Date: * Sendy Morales RN: PERFORM Event Display: Patient Education Leaflets Authored Date: [id number] Surgery Left Atrial Appendage Closure Discharge Instructions ?? 293 Left Atrial Appendage Closure Discharge Instructions ?? Groin Puncture Site Discharge Instructions ? No heavy lifting over 10 pounds (for example: gallon of milk) 1 week following the procedure; gradually increase normal activity over the next 5 days. Avoid straining/pushing when moving bowels. ??? You may feel like resting more after your procedure. Slowly start to do more each day. Rest whenyou feel it is needed. ??? Make sure to look at your procedure site every day until it is completely healed. You may see bruising at the puncture site and that is common after the procedure. ??? You may shower the day after your procedure. Remove the band aid before showering. Wash the area gently with soap and water. Leave open to air. Do not take tub baths, hot tubs, soaking of the puncture site or swimming for 1 week. Do not put any creams, powders or lotions on your puncture site. ??? You may resume sexual activity the day after your procedure; avoid bending the hip on the side of the groin puncture excessively and any strenuous positions for 1 week. ??? Call your doctor if your procedure site develops any of the following: - New onset severe pain - New onset lump or swelling - Bleeding that does not stop with light pressure ? Medications: ? You must continue to take your blood thinning medication. Call your procedure doctor if you have any questions or concerns. ??? If you are prescribed warfarin/Coumadin, have your INR checked in 3-4 days and the next week. The target INR is 2.0 ??? 3.0. ?? The nurse will discuss with you how ofte n it is necessary to check your INR. If you need a referral to the [facility] Coumadin/warfarin clinic, please speak with your provider and one can be set up for you. If you choose to follow up at yourown warfarin/Coumadin clinic (or doctor's office), please make sure all records are forwarded to the physician who performed the left atrial appendage closure procedure. ? Follow-up schedule after your Left Atrial Appendage Closure Procedure: ? Around 1 Week: the nurse will call you to ask how you are and confirm your follow-up tests and appointments. ??? Around 45 Days: You will have a Transesophageal Echocardiogram (ALVERTO). A nurse willcall you with instructions. ? - Remember, you cannot have anything to eat or drink a minimum of 6 hours before the ALVERTO. If your ALVERTO is scheduled for the morning, do not eat anything after midnight. ? - The doctor will give you directions about your blood thinning medication after the ALVERTO.? Day after ALVERTO: The nurse will call you to review the directions you have received after your ALVERTO. ??? Office Visit: An office visit may be scheduled with you, after the ALVERTO, to discuss results and discuss medication regimen.? Around 6 months: One of our providers will call you to discussyour blood thinning medications. ?? Dental Visits: The 1st??6 months after the procedure you will need antibiotics before you have dental work. If you have dental work scheduled, please call the spray gunner? who performed the left atrial appendage closure procedure, for further instructions. ?? MRI Scans: Prior to undergoing an MRI scan, inform your doctor or surgical scrub technologist that you have a Left Atrial Appendage Closure Device, and show them the Device Implant Card. ? Potential Problems: Please call us if you develop ? A fever of 100.5 or higher during your first few days at home. ??? Increased swelling of a groin bruise. A groin bruise is to be expected due to the blood thinners used during your procedure.?? Discoloration will spread as you move about but swelling should decrease. ??? Persistent throat and groin soreness/discomfort that does not resolve within a few days. ??? Shortness of breath or a heartrate of more than 120 beats per minute. ??? A new persistent cough or unexplained shortness of breath. ??? Decreased urination. ??? Weight gain of 2 pounds in one day OR 5 pounds in one week. ??? Pain, change in color, temperature or swelling in lower legs or feet. ??? Fevers greater than 100.5 degrees, redness, swelling, incision site hot to touch, foul or colored drainage from the incision site. These are all signs of an infection and should be reported immediately to the physician who implanted your left atrial appendage occlusion device. ? Post Left Atrial Appendage Closure Discharge Instructions ? Please see the implanting physician within 2 weeks of discharge. ??? After a minimum of 45 daysfrom date of procedure you will need to return to the hospital to have an outpatient ALVERTO performed to determine if the implant has closed the opening of the appendage. If the ALVERTO reveals that the appendage is not fully closed - you will require another ALVERTO at a later date to reassess. Once the results of the ALVERTO have been reviewed, the physicians will determine what medication changes need to be made.? 6 months post implant, the nurse coordinator will reach out to you for a brief telephonesurvey. This allows us to complete required patient monitoring. If your physician determines that you may benefit from an EKG and lab work, the nurse coordinator can assist you with setting up this appointment. ??? At 1 and 2 years post implant you will be contacted by the nurse coordinator for a brief interview. This allows us to complete required patient monitoring. ??? Prior to any dental workor surgery notify your dentist or surgeon about your Left Atrial Appendage Closure implant and the medications you are on. ??? Maintain regular follow-up visits with your spray gunner. ??? Keep all bloodwork appointments. ? Medications: ? DO NOT STOP TAKING YOUR BLOOD THINNING MEDICATIONS WITHOUT SPEAKING TO THE PHYSICIAN WHO PERFORMED YOUR LEFT ATRIAL APPENDAGE CLOSURE FIRST! ??? Take your medications as ordered at the time of discharge. ??? Do NOT stop taking any medications without first discussing it with your doctor. ??? DoNOT take over the counter medications, herbal or natural supplements without first discussing with your doctor. ??? Notify all your doctors of current medications lists. Follow instructions on medication administration especially if ???blood thinning?? medications are prescribed. Your doctor will monitor your medications and will advise you when or if you can stop taking them. ?? For questions/concerns, please call the office at [phone]. Please notify the office staff thatyou have had a Left Atrial Appendage Closure Device.? For emergencies, call 911. ?? * BHSPowerscribe , CIS S: TRANSCRIBE Kena Hoskins MD: VERIFY Carey Delarosa MD: SIGN Event Display: Result: Authored Date: Chest 2 Views Frontal and Lat Reason: Postop; s p Watchman device placement.; Clinical Question(s): Postop COMPARISON: Multiple priors, most recent CT 12/23/2021, chest x-ray 05/22/2020 FINDINGS: LINES AND TUBES: Dual-lead left subclavian pacer/AICD wires are intact. LUNGS AND PLEURA: Mild left lower lobe opacity, likely atelectasis. Normal pulmonary vascularity. No evidence of pleural effusion. No pneumothorax. HEART, MEDIASTINUM AND LULU: Heart is normal in size. Status post left atrial occlusion device. Normal mediastinal and hilar contour. BONES AND SOFT TISSUES: No acute abnormality. Severe right greater than left degenerative change of the glenohumeral joints. IMPRESSION: No acute abnormality status post left atrial occlusion device. I have personally reviewed the images and I agree with this report. WSN: [id number] Ordering Physician: Byron Mix Dictated By: Carey Delarosa MD Dictated Date/Time: 02/24/23 9:12 am Reviewed By: Kena Hoskins MD Signed By: Kena Hoskins MD Signed Date/Time: 02/24/23 9:17 am Transcribed By: RASHEL Transcribed Date/Time: 02/24/23 9:01 am History and physical note * Event Display: History and Physical Hospital Authored Date: EKG study * Event Display: EKG Authored Date: * Event Display: ECG 12-Lead Authored Date: Please click on pdf link to open report * Event Display: ECG 12-Lead Authored Date: Ventricular Rate: 64 BPM Atrial Rate: 64 BPM P-R Interval: 210 ms QRS Duration: 126 ms Q-T Interval: 482 ms QTC Calculation(Bazett): 497 ms P [place]: 49 degrees R [place]: 45 degrees T [place]: 46 degrees AV dual-paced rhythm with prolonged AV conduction with Premature atrial complexes with Aberrant conduction Abnormal ECG When compared with ECG of 24-NOV-2022 11:06, Aberrant conduction is now Present Vent. rate has increased BY 4 BPM Confirmed by [facility] ([id number]) on 02/23/2023 10:06:34 AM [place]: [facility] * Ayala Francois RN: PERFORM, SIGN, VERIFY Event Display: Progress [facility] Hospital Authored Date: Patient: FIONA CAO Age: 72 years Sex: Female : 1950 Associated Diagnoses: None Author: Ayala Francois RN Findings Problem Related to Alteration in Cardiac Function (new) : Alteration in Cardiac Function/new 02/24/2023 0:00 EDT Alteration in Cardiac Status Related to Other: status post cardiac procedure Goals & Outcomes, Cardiac Status Pt will resume/maintain adequate cardiac output, Pt will resume/maintain adequate hemodynamic status, Pt will resume/maintain intact neuro function, Pt/caregiver will state understanding of diagnosis, Pt/caregiver will state strategies to reduce risk factors Cardiac Interventions Implemented Assess/monitor cardiac status, Assess/monitor neuro status BH Goals/Interventions, Cardiac Yes Cardiac, Problem Start 02/24/2023 0:06 Reviewed Plan with, Cardiac Status Patient Patient Progression, Cardiac Status Plan Initiation . Nursing Data Cardiac Data. : Cardiac Data. 02/23/2023 21:00 EDT Cardiovascular Symptoms Edema present Nail Bed Color, Fingers Coldfoot Nail Bed Color, Toes Other: right and left first (great) and fifth toenails are discolored Skin Temperature Upper Extremities Warm Skin Temperature Lower Extremities Warm Heart Sounds S1, S2 Pacemaker Yes Cardiovascular Comment Cardiovascular Comment Cardiac Rhythm Paced Radial Pulse, Left Normal Radial Pulse, Right Normal Dorsalis Pedis Pulse, Left Normal Dorsalis Pedis Pulse, Right Normal Femstop No Edema Dependent Edema, sacral 2+ mild Edema, Left Pretibial 3+ moderate Edema, Right Pretibial 3+ moderate Ankle, left 3+ moderate Ankle, right 3+ moderate Pedal, left 2+ mild Pedal, right 2+ mild quality assurance monitor Yes AV fistula No Cardiovascular WNL except . Evaluation Pt. is alert, oriented and her SBP has been soft 80s to low 100s, pt. asymptomatic, heart rate 60s Paced rhythm and Provider Gaurang was web paged and made aware. Lung sounds are clear with an occasional non productive cough. Visible lower extremity, ankle and pedal edema present with positive pedal pu lses and her left lower extremity appears slightly larger then the right side. Right groin (status post watchman device insertion site has no bruising, slight tenderness to touch and a clean, dry andintact dressing. Pt. is currently resting in bed with her eyes closed. See the biophysical assessment, CIS and I&O for additional information.. * Katia Cervantes RN: PERFORM, SIGN, VERIFY Event Display: Progress Note Hospital Authored Date: [id number] Patient: FIONA CAO Age: 72 years Sex: Female : 1950 Associated Diagnoses: None Author: Katia Cervantes RN Findings Narrative/Incidental a&o x3. paced on tele. ambulating independently at baseline per pt. pt had watchman procedure done today and they accessed the right groin. groin site is clean, dry, and intact; there is no bleeding bruising, or evident of hematoma noted. pt is not complaining of any pain at this time. upon arrival to the unit pt was orientated to room, unit, and nurse call mac. see cis for full biophysical assessment and plan.. Patient Care team information Care Team Personnel Name: Katia Cervantes RN Position: S RN Member Role: Primary Care Nurse Care Team Related Persons Name: LISA CAO Address: home [address] [place] [address]
--- OUTSIDE RECORDS SUMMARY | 2024-04-11 07:49 | XMS_ITS | Continuity of Care Document ---
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 Start Date: 11/03/20 Status: [...] [id number] fillupon patient request, 165.1, cm, 11/06/20 8:23:00 E... Start Date: 11/06/20 Status: Ordered prochlorperazine 10 mg oral tablet 1 tablet = 10 mg, By Mouth, Every 6 hours, PRN Nausea, # 30 tablet, 2 Refills, Maintenance, 08/27/20 15:33:00 EDT, Tablet, [facility]/pharmacy #[id number], 157.7, cm, 08/27/20 9:55:00 EDT, Height, [...]
--- OUTSIDE RECORDS SUMMARY | 2024-04-11 07:49 | XMS_ITS | Continuity of Care Document ---
Author Organization [facility] Address [address] [place] [address]- Care Team Providers Care Online Marketing Analyst Name Role Phone Wing Emerson MD Primary Care Physician [phone] Encounter [facility] [place] [id number] Date(s): 11/18/22 - 12/18/22 [facility] [address] [place] [id number] [[email or web address]] Attending Physician: Admtr, Sri Admitting Physician: Admtr, Sri Referring Physician: [...] Reference Physician Member Role: PCP Address: Address: [address] [place] [id number]- Care Team Related Persons Name: LISA CAO Address: home [address] [place] [address]
--- NOTE | 2024-04-11 07:51 | PHA.MEDREC ---
Pharmacy Consult ? Medication Reconciliation Pharmacy has completed the medication reconciliation. Reviewed med rec done by nursing
[2024-04-11] MEDS: Lactated Ringers 1,000 ML 50 ML IVCONT (08:27)
--- NOTE | 2024-04-11 10:49 | MHC.SHP ---
Pre-Procedural Eval Section A - 24 Hr Update-Section A only Date of Service: 04/11/24 The patient is an INPATIENT: No Changes since office visit: Yes Patient answered all questions; No Cold of Flu in the past 2 weeks, No New Medical Problems and No Changes in Medication The patient has been examined within 24 hours of the surgical procedure. The History & Physical has been completed within 30 days and I have reviewed it.: Yes Section B - Complete if H&P > 30 days Chief Complaint: Repair of irreducible incisional hernia w mesh Allergies: Allergies Allergy/AdvReac Type Severity Reaction Status Date / Time levofloxacin [From LEVAQUIN] Allergy Intermediate RASH Verified 03/23/24 11:01 Darvocet-N 50 Allergy Mild hives Uncoded 03/23/24 11:01 Sulfacet-R Allergy Unknown gi Uncoded 03/23/24 11:01 Plan Diagnosis/Plan: Unchanged I have reviewed the history and physical and performed a pertinent physical examination on my patient. No changes have occurred unless specified. Time Spent With Patient Time: Total time managing care of this patient today ____ minutes.
--- NOTE | 2024-04-11 14:00 | W.PM.OPN ---
Operative Note Operative Note Date of Service: 04/11/24 Narrative: Preoperative diagnosis: Recurrent non reducible incisional hernia Postoperative diagnosis: Same Procedure: Repair of recurrent non reducible incisional hernia with mesh, extensive lysis of adhesions Surgeon: Wilfred Sin MD Concrete Pavement Installer: Gail Najera PA-C Anesthesia: General LMA Indications for procedure: 73-year-old female patient with several prior incisional hernia repairs with mesh now presenting with a large painful hernia with prior episodes of bowel obstruction, presenting for an elective repair of a recurrent non reducible incisional hernia Operative findings: Dense adhesions with multiple loops of small bowel within the hernia sac. Multiple hernia sacs noted in the right lower quadrant and midline. Extensive lysis of adhesions required. Specimen: Hernia sac Estimated blood loss: 25 mL Complications: None Procedure details: Patient was brought to the OR and placed in a supine position. After administering general anesthesia the patient's abdomen was prepped with ChloraPrep and draped in a sterile fashion. A surgical time-out was called the consent confirmed. Patient received preoperative antibiotics and Venodyne boots were in place. Local anesthesia was infiltrated in a transverse fashion just below the level of the umbilicus. Incision was then made with a scalpel and carried out through subcutaneous tissue up to the sac. An extensive enlarged hernia sac measuring at least 15 cm was identified. This was circumferentially dissected down to fascia. The sac was then entered and multiple loops of adherent small bowel were noted within the sac. These were carefully dissected free using Metzenbaum scissors. All the remaining bowel was returned to the abdominal cavity. The redundant hernia sac was then excised and sent to pathology for further examination. Further dissection below the fascia intra-abdominal was then performed and several small hernias noted adjacent to the larger hernia. These were all included into the hernia repair. Total hernia size was approximately 8 cm in diameter. A previous hernia repair was identified with a circular Ventralex mesh repaired with Prolene sutures. This was left in place as it was firmly adherent. There were multiple loops of small bowel adherent to this intra-abdominally. These were carefully dissected off the mesh. Fascia was then closed using [id number] 1. Tycron sutures. An onlay mesh was then applied using a 6 x 3 in polypropylene mesh cut to size. This was secured to fascia circumferentially using 1. Tycron sutures. Wounds were then irrigated with saline solution and suctioned dry. Wounds were checked for hemostasis. Subcutaneous tissue was then reapproximated using interrupted 3-0 Polysorb sutures. Dermis was reapproximated using interrupted 3-0 Polysorb sutures. Skin was then closed using skin sebastián. Sterile dressings were then applied. The patient tolerated the procedure well. Sponge, instrument, and needle counts reported as correct. The patient was transferred to PACU in stable condition.
--- NOTE | 2024-04-11 14:44 | HO.PM.IMCN ---
History of Present Illness Data of Consult Service Date: 04/11/24 Requesting physician: Wilfred Sin Primary Care Provider: Nonstaff Physician JUAN FRANCISCO Reason for consult: medical management 73 year old female with history of htn, hld, LBBB, cardiomyopathy, CAD, bi vicd in place, PAF s/p watchman device, prior ventral hernia admitted to general surgery with consult placed to hospitalist service for medical management. She was admitted to general surgery earlier today with plan for repair of irreducible incisional hernia with mesh. Underwent open repair of recurrent non reducible incisional hernia with mesh with extensive lysis of adhesions earlier today. She is reporting discomfort in the lower abdomen but states the pain is moderate in nature. Denies any nausea, vomiting, diarrhea, shortness of breath, lightheadedness, or chest pain. She has no other complaints at this time. Vital signs are stable, no hypoxia or hypotension. She was admitted for hernia repair in December and did experience borderline low blood pressures secondary to narcotic usage. BP currently 129/60. [facility] Medical History Asthma Degenerative joint disease Arthritis Thyroid disease Hx of transfusion of packed red blood cells Diverticulosis GERD (gastroesophageal reflux disease) Fibromyalgia Elevated liver enzymes Elevated cholesterol Osteoporosis Presence of Watchman left atrial appendage closure device Hx of radiation therapy History of chemotherapy History of uterine cancer Mild intermittent asthma Osteoarthritis of left hip Cardiomyopathy CAD (coronary artery disease) Pre-operative cardiovascular examination HTN (hypertension) Biventricular ICD (implantable cardioverter-defibrillator) in place (~04/2020) Paroxysmal atrial fibrillation LBBB (left bundle branch block) Chronic systolic heart failure Functional capacity: uses cane/walker Family History Father Cancer Mother No problems noted. Surgical History Hx of cholecystectomy Hx of hysterectomy History of total left hip replacement Hx of hernia repair History of permanent cardiac pacemaker placement Social History Household Members: Other Household Members Other:: granddaughter Housing: House Are you a primary direct care provider to a significant other at home: No Do you presently have visiting nurse or other home services: Yes (homemaker) Alcohol intake: never Patient Tobacco Use Status: Never used Tobacco Second Hand Smoke Exposure: No Use of substances other than those prescribed or required for medical reasons: No Have you been hit, kicked, punched, or otherwise hurt by someone within the past year? If so, by whom?: No Are you DNR?: No Advance Directives: Yes Advance Directives Information Provided: No Advance Directives on File: Yes Advance Directives Date on File: 10/08/21 Recently lost weight without trying: Yes How much weight loss: 2-13 pounds Eating poorly because of decreased appetite: No Nutrition screen score: 3 Nutrition Risks: Gastrointestinal Malabsorption Patient : No : No Poor oral hygiene: Yes (full upper denture and partial lower) service: No Current occupational status: retired Current occupation: rt handed Meds Allergies Allergy/AdvReac Type Severity Reaction Status Date / Time levofloxacin [From LEVAQUIN] Allergy Intermediate RASH Verified 03/23/24 11:01 Darvocet-N 50 Allergy Mild hives Uncoded 03/23/24 11:01 Sulfacet-R Allergy Unknown gi Uncoded 03/23/24 11:01 Active Medications: Current Medications Albuterol Sulfate (Albuterol Sulfate (0.083%) 2.5 Mg/3 Ml Vial.Neb) 2.5 mg INHALE ONCE PRN PRN Reason: Shortness of Breath/Wheezing Amiodarone HCl (Amiodarone Hcl 200 Mg Tablet) 100 mg PO DAILY AMANDA Aspirin (Aspirin Enteric Coated 81 Mg Tablet.Dr) 81 mg PO DAILY AMANDA Atorvastatin Calcium (Atorvastatin Calcium 20 Mg Tablet) 20 mg PO BEDTIME AMANDA Carvedilol (Carvedilol 12.5 Mg Tablet) 12.5 mg PO BID AMANDA; Protocol Clonazepam (Clonazepam 1 Mg Tablet) 2 mg PO BEDTIME PRN PRN Reason: Restless Leg(S) Furosemide (Furosemide 20 Mg Tablet) 20 mg PO DAILY AMANDA; Protocol Hydromorphone HCl (Hydromorphone Hcl 0.5 Mg/0.5 Ml Syringe) 0.5 mg IVPUSH Q3H PRN; Protocol PRN Reason: Pain, Severe (Pain Scale 7-10) Lactated Ringer's (Lr) 1,000 mls @ 80 mls/hr IVCONT .[id number] AMANDA Acetaminophen (Ofirmev) 1,000 mg in 100 mls @ 400 mls/hr IV Q6H [facility] Stop: 04/12/24 12:14 Levothyroxine Sodium (Levothyroxine Sodium 75 Mcg Tablet) 75 mcg PO DAILY@0600 [facility] Loratadine (Loratadine 10 Mg Tablet) 10 mg PO DAILY [facility] Multivitamins/Vitamin C (Multivitamin Tablet) 1 tab PO DAILY [facility] Omeprazole (Omeprazole 20 Mg Capsule.Dr) 20 mg PO DAILY@0630 [facility] Ondansetron HCl (Ondansetron Hcl 4 Mg/2 Ml Vial) 4 mg IVPUSH Q8H PRN PRN Reason: Nausea Oxycodone HCl (Oxycodone Hcl Immed Release 5 Mg Tablet) 5 mg PO Q6H PRN PRN Reason: Pain, Moderate(Pain Scale 4-6) Senna (Sennosides 8.6 Mg Tablet) 17.2 mg PO BEDTIME [facility] Tramadol HCl (Tramadol Hcl 50 Mg Tablet) 100 mg PO TID [facility] Valsartan (Valsartan 80 Mg Tablet) 80 mg PO DAILY [facility]; Protocol Vitamin D (Cholecalciferol (Vitamin D3) 25 Mcg Tablet) 25 mcg PO BID [facility] Zinc Oxide (Zinc Oxide 20% Ointment 28.35 Gm Tube) 1 appl TOPICAL DAILY PRN PRN Reason: buttock Home Medications ?Medication ?Instructions ?Recorded ?Confirmed ?Last Taken ?Type atorvastatin 20 mg tablet 20 mg PO BEDTIME 08/15/20 04/04/24 01/09/24 History loratadine 10 mg tablet 10 mg PO DAILY 08/15/20 04/04/24 01/09/24 History omeprazole 20 mg capsule,delayed 20 mg PO DAILY 08/15/20 04/04/24 01/09/24 History release tramadol 50 mg tablet 100 mg PO TID 08/15/20 04/04/24 01/09/24 History clonazepam 2 mg tablet 2 mg PO BEDTIME PRN Restless Leg(S) 07/09/21 04/04/24 01/09/24 History cholecalciferol (vitamin D3) 25 25 mcg PO BID 08/16/21 04/04/24 01/09/24 History mcg (1,000 unit) tablet (Vitamin D3) multivitamin 1 tab PO DAILY 08/16/21 04/04/24 01/09/24 History alendronate 70 mg tablet 70 mg PO DELGADO 03/01/23 04/04/24 01/08/24 History aspirin 81 mg tablet,delayed 81 mg PO DAILY 03/01/23 04/04/24 01/09/24 History release (Adult Aspirin Regimen) levothyroxine 75 mcg tablet 75 mcg PO DAILY@0600 01/10/24 04/11/24 01/09/24 History sennosides 8.6 mg tablet (senna) 17.2 mg PO BEDTIME Constipation 01/10/24 04/04/24 Unknown History zinc oxide 13 % topical cream 1 appl topical DAILY PRN buttock 01/10/24 04/04/24 Unknown History amiodarone 200 mg tablet 100 mg PO DAILY 04/04/24 04/04/24 Unknown History ondansetron HCl 4 mg tablet 4 mg PO Q6H PRN Nausea 04/04/24 04/04/24 Unknown History Physical Exam Vital Signs and Narrative: Vital Signs: Last Vital Signs Temp 98.1 F 04/11/24 14:14 Pulse 60 04/11/24 14:14 Resp 16 04/11/24 14:14 BP 126/53 L 04/11/24 14:14 Pulse Ox 94 04/11/24 14:14 O2 Del Method Room Air 04/11/24 14:14 O2 Flow Rate 6 04/11/24 13:49 BMI result Body Mass Index 32.6 Constitutional - Awake and Alert, No apparent distress Eyes - PERRLA, EOMI Cardiovascular - S1S2, RRR, No edema Respiratory - Normal lung expansion, Normal respiratory effort, No respiratory distress, CTA bilaterally Extremities - no calf tenderness bilaterally, no swelling Skin - Warm/Dry Assessment and Plan (1) Hernia, ventral, with obstruction: Status: Acute Plan 73 year old female with history of htn, hld, LBBB, cardiomyopathy, CAD, bi vicd in place, PAF s/p watchman device, prior ventral hernia admitted to general surgery with consult placed to hospitalist service for medical management. #Abd pain/incisional hernia repair POD0 -resume asa per general surgery -plan per general surgery #HTN -h/o low blood pressures related to narcotic administration -recommend resuming carvedilol this evening. Continue lasix. Hold valsartan for now, continue resuming if bp allows #HLD -continue statin #CAD/HFr EF (35-40%)/PAF/CM/HLD -resume carvedilol and valsartan as above. Hold asa. Continue statin -continue amiodorone Thank you for this consult, will continue following.
[2024-04-11] MEDS: Lactated Ringers 1,000 ML 80 ML IVCONT (15:20)
[2024-04-11] MEDS: oxyCODONE HCl Immed Release 5 MG TABLET PO (15:20)
--- NOTE | 2024-04-11 16:01 | MHC.CLN ---
NUTRITION CONSULT FOR POOR PO INTAKE DUE TO HERNIA. PATIENT WITH RECURRENT VENTRAL HERNIA. HAD SURGERY IN DECEMBER AND AGAIN TODAY. DIET=REGULAR. REVIEW OF WEIGHT HX SHOWS WEIGHT LOSS X ONE YEAR -4.6% WEIGHT GAIN X 3 MONTHS +4.9%. NO SIGNIFICANT WEIGHT CHANGE. RD TO FOLLOW UP FFOR PO INTAKE POST SURGERY.
[2024-04-11] MEDS: Acetaminophen 1,000 MG/100 ML PIGGYBACK 400 MG IV (18:44)
[2024-04-11] MEDS: Sennosides 8.6 MG TABLET 17.2 MG PO (21:23)
[2024-04-11] MEDS: Atorvastatin Calcium 20 MG TABLET PO (21:23)
[2024-04-11] MEDS: Cholecalciferol (Vitamin D3) 25 MCG TABLET PO (21:23)
[2024-04-11] MEDS: carvediloL 12.5 MG TABLET PO (21:23)
[2024-04-11] MEDS: traMADoL HCL 50 MG TABLET 100 MG PO (21:24)
[2024-04-12] VITALS (9 sets, daily range): BP systolic 90–112; BP diastolic 43–57; PULSE 56–67; RESP 12–18; TEMP 36.1–37.1; O2SAT 94–95
[2024-04-12] MEDS: Acetaminophen 1,000 MG/100 ML PIGGYBACK 400 MG IV ×3 (00:35→11:39)
[2024-04-12] MEDS: Lactated Ringers 1,000 ML 80 ML IVCONT (04:07)
[2024-04-12] MEDS: Levothyroxine Sodium 75 MCG TABLET PO (05:35)
[2024-04-12] MEDS: Omeprazole 20 MG CAPSULE.DR PO (05:35)
[2024-04-12 05:45] LABS: Hematocrit 31.7 % (37.0-47.0); Hemoglobin 10.5 g/dl (12.0-16.0); Mean Corpuscular HGB Conc 33.1 g/dl (31.0-35.0); Mean Corpuscular Hemoglobin 32.1 pg (27.0-33.0); Mean Corpuscular Volume 96.9 fL (80.0-98.0); Mean Platelet Volume 10.2 fL (9.4-12.3); Platelet Count 128 X10*3/uL (160-400); Red Blood Count 3.27 X10*6/uL (4.20-5.50); Red Cell Distribution Width 14.2 % (11.0-16.0); White Blood Count 7.2 X10*3/uL (4.8-10.8)
[2024-04-12 06:02] LABS: Alanine Aminotransferase 103 U/L (0-31); Albumin Level 2.8 g/dL (3.5-5.0); Alkaline Phosphatase 134 U/L (39-117); Anion Gap 8 (12-20); Aspartate Amino Transferase 171 U/L (5-31); Bilirubin Total 0.8 mg/dL (0.0-1.0); Blood Urea Nitrogen 17 mg/dL (9-16); Calcium 8.1 mg/dL (8.4-10.2); Carbon Dioxide 28 mmol/L (22-29); Chloride 106 mmol/L (96-108); Creatinine Clr Calc Pharmacy 52.8; Estimated Glomerular Filt Rate 60; Glucose Random 99 mg/dL (60-115); Potassium 3.9 mmol/L (3.3-5.1); Sodium 138 mmol/L (135-145); Total Protein 5.1 g/dL (6.5-8.0)
--- NOTE | 2024-04-12 08:12 | HO.POSTANES ---
Post Anesthesia Evaluation Post Anesthesia Evaluation Date of Service: 04/12/24 Vital Signs: Vital Signs Temp Pulse Resp BP Pulse Ox O2 Del Method 04/12/24 08:09 97.3 F 61 12 92/48 L 95 Room Air 04/12/24 07:20 97.3 F 56 12 92/48 L 95 Room Air 04/12/24 03:02 97.0 F 60 16 91/51 L 95 Room Air 04/11/24 21:23 61 121/58 L Anesthesia: General Endotracheal-GETA Mental Status: Awake Pain Control: Satisfactory Nausea/Vomiting: None Hydration: Adequate Anesthesia-Related Issues: No Anes. Related Issues
--- NOTE | 2024-04-12 08:37 | PM.PNGS ---
Subjective Subjective Date of Service: 04/12/24 Interval history: Feels fairly well, having osme incisional pain when trying to get out of bed overnight. Tolerating solid diet. Physical Exam Vital Signs: Vital Signs: Last Vital Signs Temp 97.3 F 04/12/24 08:09 Pulse 61 04/12/24 08:09 Resp 12 04/12/24 08:09 BP 92/48 L 04/12/24 08:09 Pulse Ox 95 04/12/24 08:09 O2 Del Method Room Air 04/12/24 08:09 O2 Flow Rate 6 04/11/24 13:49 BMI result Body Mass Index 32.6 Const: General: comfortable, no acute distress and alert Orientation/consciousness: patient oriented x3 Resp: Effort & Inspection: normal respiratory effort GI: Inspection: No distended and Yes incision (dressing c/d/i) Palpation (GI): Soft to palpation, Tenderness to palpation present (GI) (mild incisional) and no guarding Skin: General skin exam: no rashes or lesions noted Neuro: General: patient oriented x3 Objective Data Active Medications Albuterol Sulfate (Albuterol Sulfate (0.083%) 2.5 Mg/3 Ml Vial.Neb) 2.5 mg INHALE ONCE PRN PRN Reason: Shortness of Breath/Wheezing Amiodarone HCl (Amiodarone Hcl 200 Mg Tablet) 100 mg PO DAILY [facility] TO [facility] Aspirin (Aspirin Enteric Coated 81 Mg Tablet.) 81 mg PO DAILY [facility] Atorvastatin Calcium (Atorvastatin Calcium 20 Mg Tablet) 20 mg PO BEDTIME [facility] Last Admin: 04/11/24 21:23 Dose: 20 mg Documented By: CASSANDRA Carvedilol (Carvedilol 12.5 Mg Tablet) 12.5 mg PO BID [facility] TO [facility]; Protocol Last Admin: 04/11/24 21:23 Dose: 12.5 mg Documented By: CASSANDRA Clonazepam (Clonazepam 1 Mg Tablet) 2 mg PO BEDTIME PRN PRN Reason: Restless Leg(S) Furosemide (Furosemide 20 Mg Tablet) 20 mg PO DAILY [facility] TO [facility]; Protocol Hydromorphone HCl (Hydromorphone Hcl 0.5 Mg/0.5 Ml Syringe) 0.5 mg IVPUSH Q3H PRN; Protocol PRN Reason: Pain, Severe (Pain Scale 7-10) Lactated Ringer's (Lr) 1,000 mls @ 80 mls/hr IVCONT .[id number] [facility] Last Admin: 04/12/24 04:07 Dose: 80 mls/hr Documented By: ESME Acetaminophen (Ofirmev) 1,000 mg in 100 mls @ 400 mls/hr IV Q6H [facility] Stop: 04/12/24 12:14 Last Infusion: 04/12/24 06:12 Dose: Infused Documented By: EMSE Levothyroxine Sodium (Levothyroxine Sodium 75 Mcg Tablet) 75 mcg PO DAILY@0600 [facility] Last Admin: 04/12/24 05:35 Dose: 75 mcg Documented By: ESME Loratadine (Loratadine 10 Mg Tablet) 10 mg PO DAILY [facility] Multivitamins/Vitamin C (Multivitamin Tablet) 1 tab PO DAILY [facility] Omeprazole (Omeprazole 20 Mg Capsule.Dr) 20 mg PO DAILY@0630 [facility] Last Admin: 04/12/24 05:35 Dose: 20 mg Documented By: ESME Ondansetron HCl (Ondansetron Hcl 4 Mg/2 Ml Vial) 4 mg IVPUSH Q8H PRN PRN Reason: Nausea Oxycodone HCl (Oxycodone Hcl Immed Release 5 Mg Tablet) 5 mg PO Q6H PRN PRN Reason: Pain, Moderate(Pain Scale 4-6) Last Admin: 04/11/24 15:20 Dose: 5 mg Documented By: GRETA Polyethylene Glycol (Polyethylene Glycol 3350 17 Gm Powd.Pack) 17 gm PO DAILY PRN PRN Reason: constipation Senna (Sennosides 8.6 Mg Tablet) 17.2 mg PO BEDTIME [facility] Last Admin: 04/11/24 21:23 Dose: 17.2 mg Documented By: CASSANDRA Tramadol HCl (Tramadol Hcl 50 Mg Tablet) 100 mg PO TID [facility] Last Admin: 04/11/24 21:24 Dose: 100 mg Documented By: CASSANDRA Vitamin D (Cholecalciferol (Vitamin D3) 25 Mcg Tablet) 25 mcg PO BID [facility] Last Admin: 04/11/24 21:23 Dose: 25 mcg Documented By: CASSANDRA Zinc Oxide (Zinc Oxide 20% Ointment 28.35 Gm Tube) 1 appl TOPICAL DAILY PRN PRN Reason: buttock Labs 04/12/24 05:17 04/12/24 05:17 Labs: Laboratory Results - last 24 hr 04/12/24 05:17 MCV 96.9 MCH 32.1 MCHC 33.1 RDW 14.2 Plt Count 128 L D MPV 10.2 Absolute Nucleated RBC 0.000 Nucleated RBC % (auto) 0.0 Anion Gap 8 L Estim Creat Clear Calc 52.8 Estimated GFR 60 Random Glucose 99 Calcium 8.1 L D Total Bilirubin 0.8 AST 171 H ALT 103 H Alkaline Phosphatase 134 H Total Protein 5.1 L Albumin 2.8 L Procedures Date of Service Date of Service: 04/12/24 Progress Note: A&P Assessment and plan (1) Hernia, ventral, with obstruction: Status: Acute Plan POD #1 s/p repair of recurrent non reducible incisional hernia with mesh, extensive lysis of adhesions. Doing well post op, good pain control and tolerating solid diet. Abd benign with appropriate post op tenderness, dressing clean and intact, abd binder in place. Likely home tomorrow if pain remains well controlled. Increase activity today, dc IVF. Patient comfortable with plan. Hospitalists following. Time Spent With Patient Time: Total time managing care of this patient today ____ minutes. Quality Stroke Does the patient have a stroke diagnosis?: No VTE Prior VTE?: No VTE Risk Level:: Surgical - high VTE Device Contraindication: N/A - Device Ordered VTE Drug Contraindication: N/A - Med Ordered
[2024-04-12] MEDS: Multivitamin TABLET 1 TAB PO (09:08)
[2024-04-12] MEDS: Heparin Sodium,Porcine 5,000 UNIT/ML VIAL 5000 UNIT SUBCUT ×2 (09:08→21:39)
[2024-04-12] MEDS: Amiodarone HCL 200 MG TABLET 100 MG PO (09:09)
[2024-04-12] MEDS: Loratadine 10 MG TABLET PO (09:10)
[2024-04-12] MEDS: traMADoL HCL 50 MG TABLET 100 MG PO ×3 (09:10→21:37)
[2024-04-12] MEDS: carvediloL 12.5 MG TABLET PO ×2 (09:10→21:35)
[2024-04-12] MEDS: Aspirin Enteric Coated 81 MG TABLET.DR PO (09:10)
[2024-04-12] MEDS: Furosemide 20 MG TABLET PO (09:10)
[2024-04-12] MEDS: Cholecalciferol (Vitamin D3) 25 MCG TABLET PO ×2 (09:10→21:38)
--- NOTE | 2024-04-12 10:02 | MHC.CM.PN ---
PT REPORTS SHE LIVES AT HOME WITH HER GRANDDAUGHTER AND IS USUALLY INDEPENDENT WITH CARE SHE HAS [facility], [facility] AND [employer] SHE USES A WALKER AND COMMODE AND SAYS SHE STAYS ON THE 1ST FLOOR OF THE HOME ALWAYS PCP: RADHA TA HCP AND KERRY ON FILE IMM DELIVERED DCP: [facility] GRANDDAUGHTER WILL TRANSPORT
[2024-04-12] MEDS: ondansetron HCL 4 MG/2 ML VIAL IVPUSH (11:39)
--- NOTE | 2024-04-12 15:15 | P.PNIM_ITS ---
Subjective Subjective Date of Service: 04/12/24 Interval History: Seen and examined this morning Follow-up for medical consultation No overnight events Has no specific complaints this morning. Blood pressure on the lower side but patient asymptomatic, no dizziness Review of Systems Review of Systems: Yes all other systems are reviewed and are negative Constitutional Constitutional: Denies fever(s) ENT Ears, Nose, Mouth, and Throat: Denies dizziness Neurologic Neurologic: Denies dizziness Physical Exam 2 Vital Signs: Vital Signs: Last Vital Signs Temp 97.3 F 04/12/24 08:50 Pulse 60 04/12/24 09:10 Resp 12 04/12/24 08:50 BP 94/52 L 04/12/24 09:10 Pulse Ox 95 04/12/24 08:50 O2 Del Method Room Air 04/12/24 08:50 O2 Flow Rate 6 04/11/24 13:49 BMI result Body Mass Index 32.6 Const: General: cooperative, comfortable, alert and awake Nutritional Appearance: average body habitus Orientation/consciousness: patient oriented x3 Resp: Effort & Inspection: normal respiratory effort, able to speak in complete sentences, no respiratory distress and no use of accessory muscles Cardio: Rate: regular rate GI: Palpation (GI): Soft to palpation Neuro: General: patient oriented x3, moves all extremities and CN's II-XI intact bilaterally Extrem: General: Yes no pedal edema Objective Data Active Medications Albuterol Sulfate (Albuterol Sulfate (0.083%) 2.5 Mg/3 Ml Vial.Neb) 2.5 mg INHALE ONCE PRN PRN Reason: Shortness of Breath/Wheezing Amiodarone HCl (Amiodarone Hcl 200 Mg Tablet) 100 mg PO DAILY [facility] Last Admin: 04/12/24 09:09 Dose: 100 mg Documented By: DANNIELLE Aspirin (Aspirin Enteric Coated 81 Mg Tablet.) 81 mg PO DAILY [facility] Last Admin: 04/12/24 09:10 Dose: 81 mg Documented By: DANNIELLE Atorvastatin Calcium (Atorvastatin Calcium 20 Mg Tablet) 20 mg PO BEDTIME [facility] Last Admin: 04/11/24 21:23 Dose: 20 mg Documented By: CASSANDRA Carvedilol (Carvedilol 12.5 Mg Tablet) 12.5 mg PO BID [facility]; Protocol Last Admin: 04/12/24 09:10 Dose: 12.5 mg Documented By: DANNIELLE Clonazepam (Clonazepam 1 Mg Tablet) 2 mg PO BEDTIME PRN PRN Reason: Restless Leg(S) Furosemide (Furosemide 20 Mg Tablet) 20 mg PO DAILY [facility]; Protocol Last Admin: 04/12/24 09:10 Dose: 20 mg Documented By: DANNIELLE Heparin Sodium (Porcine) (Heparin Sodium,Porcine 5,000 Unit/Ml Vial) 5,000 unit SUBCUT Q12H [facility] Last Admin: 04/12/24 09:08 Dose: 5,000 unit Documented By: DANNIELLE Hydromorphone HCl (Hydromorphone Hcl 0.5 Mg/0.5 Ml Syringe) 0.5 mg IVPUSH Q3H PRN; Protocol PRN Reason: Pain, Severe (Pain Scale 7-10) Levothyroxine Sodium (Levothyroxine Sodium 75 Mcg Tablet) 75 mcg PO DAILY@0600 [facility] Last Admin: 04/12/24 05:35 Dose: 75 mcg Documented By: ESME Loratadine (Loratadine 10 Mg Tablet) 10 mg PO DAILY [facility] Last Admin: 04/12/24 09:10 Dose: 10 mg Documented By: DANNIELLE Multivitamins/Vitamin C (Multivitamin Tablet) 1 tab PO DAILY [facility] Last Admin: 04/12/24 09:08 Dose: 1 tab Documented By: DANNIELLE Omeprazole (Omeprazole 20 Mg Capsule.Dr) 20 mg PO DAILY@0630 [facility] Last Admin: 04/12/24 05:35 Dose: 20 mg Documented By: ESME Ondansetron HCl (Ondansetron Hcl 4 Mg/2 Ml Vial) 4 mg IVPUSH Q8H PRN PRN Reason: Nausea Last Admin: 04/12/24 11:39 Dose: 4 mg Documented By: DANNIELLE Oxycodone HCl (Oxycodone Hcl Immed Release 5 Mg Tablet) 5 mg PO Q6H PRN PRN Reason: Pain, Moderate(Pain Scale 4-6) Last Admin: 04/11/24 15:20 Dose: 5 mg Documented By: GRETA Polyethylene Glycol (Polyethylene Glycol 3350 17 Gm Powd.Pack) 17 gm PO DAILY PRN PRN Reason: constipation Senna (Sennosides 8.6 Mg Tablet) 17.2 mg PO BEDTIME [facility] Last Admin: 04/11/24 21:23 Dose: 17.2 mg Documented By: CASSANDRA Tramadol HCl (Tramadol Hcl 50 Mg Tablet) 100 mg PO TID [facility] Last Admin: 04/12/24 14:45 Dose: 100 mg Documented By: DANNIELLE Vitamin D (Cholecalciferol (Vitamin D3) 25 Mcg Tablet) 25 mcg PO BID [facility] Last Admin: 04/12/24 09:10 Dose: 25 mcg Documented By: DANNIELLE Zinc Oxide (Zinc Oxide 20% Ointment 28.35 Gm Tube) 1 appl TOPICAL DAILY PRN PRN Reason: buttock Labs 04/12/24 05:17 04/12/24 05:17 Labs: Laboratory Results - last 24 hr 04/12/24 05:17 MCV 96.9 MCH 32.1 MCHC 33.1 RDW 14.2 Plt Count 128 L D MPV 10.2 Absolute Nucleated RBC 0.000 Nucleated RBC % (auto) 0.0 Anion Gap 8 L Estim Creat Clear Calc 52.8 Estimated GFR 60 Random Glucose 99 Calcium 8.1 L D Total Bilirubin 0.8 AST 171 H ALT 103 H Alkaline Phosphatase 134 H Total Protein 5.1 L Albumin 2.8 L Assessment and Plan (1) Abdominal pain: Status: Acute Plan This is a 73 year old female with history of htn, hld, LBBB, cardiomyopathy, CAD, bi vicd in place, PAF s/p watchman device, prior ventral hernia admitted to general surgery with consult placed to hospitalist service for medical management. POD #1 s/p with repair of recurrent incisional hernia with mesh, extensive lysis of adhesions Management as per General surgery HTN h/o low blood pressures related to narcotic administration - has not received any IV narcotic medication, more likely related to anesthesia Patient asymptomatic Continue carvedilol, Continue lasix. BP remains low would hold Lasix Hold valsartan, would recommend to hold for 1 week upon discharge. Outpatient follow-up with PCP to determine need to resume. HLD continue statin CAD/HFr EF (35-40%)/PAF/CM/HLD carvedilol and valsartan recs as above. Continue statin continue amiodorone Hypothyroid Continue Synthroid PAF s/p watchman on coreg DVT prophylaxis-heparin Thank you for allowing us to participate in the care of this patient, we will follow along with you Quality Stroke Does the patient have a stroke diagnosis?: No VTE Prior VTE?: No VTE Risk Level:: Surgical - high VTE Device Contraindication: N/A - Device Ordered VTE Drug Contraindication: N/A - Med Ordered
[2024-04-12] MEDS: Sennosides 8.6 MG TABLET 17.2 MG PO (21:38)
[2024-04-13 03:19] VITALS: BP 100/52; PULSE 67; RESP 16; TEMP 36.5; O2SAT 93
[2024-04-13] MEDS: Omeprazole 20 MG CAPSULE.DR PO (05:31)
[2024-04-13] MEDS: Levothyroxine Sodium 75 MCG TABLET PO (05:31)
--- NOTE | 2024-04-13 07:42 | PM.PNGS ---
Subjective Subjective Date of Service: 04/13/24 Interval history: Patient reports having a great this morning with minimal abdominal pain. She was reluctant to take the MiraLax because of past experience. No bowel movement yet. Denies feeling nauseous. She would like to be discharged to home today. Physical Exam Vital Signs: Vital Signs: Last Vital Signs Temp 97.7 F 04/13/24 03:19 Pulse 67 04/13/24 03:19 Resp 16 04/13/24 03:19 BP 100/52 L 04/13/24 03:19 Pulse Ox 93 04/13/24 03:19 O2 Del Method Room Air 04/13/24 03:19 O2 Flow Rate 6 04/11/24 13:49 BMI result Body Mass Index 32.6 Const: General: comfortable Nutritional Appearance: well nourished Orientation/consciousness: patient oriented x3 Resp: Effort & Inspection: normal respiratory effort, no audible wheezes, no cough and no respiratory distress GI: Other: Abdominal binder intact. Incision clean, dry, and intact. Inspection: Yes normal to inspection Palpation (GI): Soft to palpation, nontender and no guarding Skin: Other: Warm, dry, no rash Neuro: General: patient oriented x3 Objective Data Active Medications Albuterol Sulfate (Albuterol Sulfate (0.083%) 2.5 Mg/3 Ml Vial.Neb) 2.5 mg INHALE ONCE PRN PRN Reason: Shortness of Breath/Wheezing Amiodarone HCl (Amiodarone Hcl 200 Mg Tablet) 100 mg PO DAILY [facility] Last Admin: 04/12/24 09:09 Dose: 100 mg Documented By: DANNIELLE Aspirin (Aspirin Enteric Coated 81 Mg Tablet.) 81 mg PO DAILY [facility] Last Admin: 04/12/24 09:10 Dose: 81 mg Documented By: DANNIELLE Atorvastatin Calcium (Atorvastatin Calcium 20 Mg Tablet) 20 mg PO BEDTIME [facility] Last Admin: 04/11/24 21:23 Dose: 20 mg Documented By: CASSANDRA Carvedilol (Carvedilol 12.5 Mg Tablet) 12.5 mg PO BID [facility]; Protocol Last Admin: 04/12/24 21:35 Dose: 12.5 mg Documented By: ESME Clonazepam (Clonazepam 1 Mg Tablet) 2 mg PO BEDTIME PRN PRN Reason: Restless Leg(S) Furosemide (Furosemide 20 Mg Tablet) 20 mg PO DAILY [facility]; Protocol Last Admin: 04/12/24 09:10 Dose: 20 mg Documented By: DANNIELLE Heparin Sodium (Porcine) (Heparin Sodium,Porcine 5,000 Unit/Ml Vial) 5,000 unit SUBCUT Q12H [facility] Last Admin: 04/12/24 21:39 Dose: 5,000 unit Documented By: ESME Hydromorphone HCl (Hydromorphone Hcl 0.5 Mg/0.5 Ml Syringe) 0.5 mg IVPUSH Q3H PRN; Protocol PRN Reason: Pain, Severe (Pain Scale 7-10) Levothyroxine Sodium (Levothyroxine Sodium 75 Mcg Tablet) 75 mcg PO DAILY@0600 [facility] Last Admin: 04/13/24 05:31 Dose: 75 mcg Documented By: ESME Loratadine (Loratadine 10 Mg Tablet) 10 mg PO DAILY [facility] Last Admin: 04/12/24 09:10 Dose: 10 mg Documented By: DANNIELLE Multivitamins/Vitamin C (Multivitamin Tablet) 1 tab PO DAILY [facility] Last Admin: 04/12/24 09:08 Dose: 1 tab Documented By: DANNIELLE Omeprazole (Omeprazole 20 Mg Capsule.Dr) 20 mg PO DAILY@0630 [facility] Last Admin: 04/13/24 05:31 Dose: 20 mg Documented By: ESME Ondansetron HCl (Ondansetron Hcl 4 Mg/2 Ml Vial) 4 mg IVPUSH Q8H PRN PRN Reason: Nausea Last Admin: 04/12/24 11:39 Dose: 4 mg Documented By: DANNIELLE Oxycodone HCl (Oxycodone Hcl Immed Release 5 Mg Tablet) 5 mg PO Q6H PRN PRN Reason: Pain, Moderate(Pain Scale 4-6) Last Admin: 04/11/24 15:20 Dose: 5 mg Documented By: GRETA Polyethylene Glycol (Polyethylene Glycol 3350 17 Gm Powd.Pack) 17 gm PO DAILY PRN PRN Reason: constipation Senna (Sennosides 8.6 Mg Tablet) 17.2 mg PO BEDTIME [facility] Last Admin: 04/12/24 21:38 Dose: 17.2 mg Documented By: ESME Tramadol HCl (Tramadol Hcl 50 Mg Tablet) 100 mg PO TID [facility] Last Admin: 04/12/24 21:37 Dose: 100 mg Documented By: ESME Vitamin D (Cholecalciferol (Vitamin D3) 25 Mcg Tablet) 25 mcg PO BID [facility] Last Admin: 04/12/24 21:38 Dose: 25 mcg Documented By: ESME Zinc Oxide (Zinc Oxide 20% Ointment 28.35 Gm Tube) 1 appl TOPICAL DAILY PRN PRN Reason: buttock Labs 04/12/24 05:17 04/12/24 05:17 Procedures Date of Service Date of Service: 04/13/24 Progress Note: A&P Assessment and plan (1) Recurrent ventral hernia: Status: Acute Plan 73-year-old female patient now pod 2 following repair of a recurrent non reducible incisional hernia with mesh. She tolerated the procedure well and her wounds are healing nicely. Plan to discharge home today with follow-up in the office in 1 week. Recommend using Dulcolax to assist with bowels p.r.n.. Encouraged ambulation while at home. She should call office for increased abdominal pain, distention, nausea, vomiting, or continued difficulty with bowels. Time Spent With Patient Time: Total time managing care of this patient today ____ minutes. Quality Stroke Does the patient have a stroke diagnosis?: No VTE Prior VTE?: No VTE Risk Level:: Surgical - high VTE Device Contraindication: N/A - Device Ordered VTE Drug Contraindication: N/A - Med Ordered
[2024-04-13 08:00] VITALS: BP 126/56; PULSE 64; RESP 13; TEMP 36.8; O2SAT 93
--- NOTE | 2024-04-13 08:32 | MHC.CM.PN ---
IMM 04/12/24 Patient is discharged to home today. [facility] services will resume. Patient has arranged for a ride home.
[2024-04-13] MEDS: traMADoL HCL 50 MG TABLET 100 MG PO (09:08)
[2024-04-13 09:09] VITALS: BP 126/56; PULSE 64
[2024-04-13] MEDS: Amiodarone HCL 200 MG TABLET 100 MG PO (09:09)
[2024-04-13] MEDS: carvediloL 12.5 MG TABLET PO (09:09)
[2024-04-13] MEDS: Multivitamin TABLET 1 TAB PO (09:09)
[2024-04-13] MEDS: Aspirin Enteric Coated 81 MG TABLET.DR PO (09:10)
[2024-04-13] MEDS: Heparin Sodium,Porcine 5,000 UNIT/ML VIAL 5000 UNIT SUBCUT (09:10)
[2024-04-13] MEDS: Cholecalciferol (Vitamin D3) 25 MCG TABLET PO (09:10)
[2024-04-13] MEDS: Loratadine 10 MG TABLET PO (09:10)
--- NOTE | 2024-04-13 10:02 | P.DS_ITS ---
DS: Providers Provider Date of Service: 04/13/24 Date of admission: 04/11/24 07:42 Date of discharge: 04/13/24 Primary care physician: Baljinder Blanchard MD Attending physician on admission: Wilfred Sin Consults: 04/11/24 14:05 Consult to Hospitalist Routine Comment: Consulting Provider: Hospitalist Reason For Exam: s/p incisional hernia repair, CAD, medical managem Attending physician on discharge: Wilfred Sin DS: Diagnosis Discharge Diagnosis (1) Recurrent ventral hernia: Status: Acute DS: Summary Hospital Course Hospital Course: HPI AT ADMISSION: 73-year-old female patient with several prior incisional hernia repairs with mesh now presenting with a large painful hernia with prior episodes of bowel obstruction, presenting for an elective repair of a recurrent non reducible incisional hernia. HOSPITAL COURSE: On 04/11/24, repair of recurrent non reducible incisional hernia with mesh, extensive lysis of adhesions was performed by Dr. Sin without complication. The patient tolerated the procedure well and was admitted to the medical/surgical floor following for observation. Hospitalist consult was obta ined for management of her medical comorbidities. She had an uncomplicated recovery course. She remained inpatient 2 post operative days for pain control. On the day of discharge, she was tolerating a solid diet without nausea or vomiting and had good oral intake. Her pain was well controlled. She was passing flatus and was on a bowel regimen. She was ambulating without difficulty. Her abdomen was benign with clean incisions. She was discharged to home on 04/13/24 in stable condition. She is to follow up in the office in 1 week. Her valsartan was held during her stay and upon discharge as her SBP was in the 90s-120s. Plan for outpatient follow-up with PCP to determine need to resume. Status at Discharge Functional status at discharge: independent ambulation Overall status at discharge: patient is progressing back to baseline Time Attestation Discharge Coordination Time (in mins): 35 Quality: Safe Use of Opioids Does Pt have an Active Cancer Diagnosis on the Problem List?: No Quality: Stroke Does the patient have a stroke diagnosis?: No Physical Exam Vital Signs: Vital Signs: Last Vital Signs Temp 98.2 F 04/13/24 08:00 Pulse 64 04/13/24 09:09 Resp 13 04/13/24 08:00 BP 126/56 L 04/13/24 09:09 Pulse Ox 93 04/13/24 08:00 O2 Del Method Room Air 04/13/24 08:00 O2 Flow Rate 6 04/11/24 13:49 BMI result Body Mass Index 32.6 DS: Data Data Completed and Pending Completed studies during hospitalization [Text1]: 04/11/24 12:37 Surgical [PTH] Routine Hernia sac, herniorrhaphy: Fibromembranous tissue with mesothelial lining consistent with hernia sac. Procedures Replacement of Left Hip Joint with Ceramic Synthetic Substitute, Uncemented, Open Approach (10/02/21) Transfusion of Nonautologous Red Blood Cells into Peripheral Vein, Percutaneous Approach (10/02/21) Discharge Plan Discharge Anticipated Discharge Date/Time: 04/13/24 07:39 Patient Disposition: Home, Self-Care Discharge Diagnosis: s/p repair of recurrent incisional hernia with mesh Referrals: Physician,Parristaff [Physician] - 1 Week Wilfred Sin MD [Physician] - 1 Week Discharge Medications: New oxycodone 5 mg tablet 5 mg PO Q6H PRN (Reason: pain (scale score 7-10)) Qty: 15 0RF Rx Instructions: Partial Fill upon patient request. Continued (DME) compression socks, medium Misc See Rx Instructions .Route Qty: 2 0RF Rx Instructions: As directed carvedilol 12.5 mg tablet 12.5 mg PO BID Qty: 180 3RF furosemide 20 mg tablet 20 mg PO DAILY Qty: 90 2RF Rx Instructions: take 2 when having swelling multivitamin Tablet 1 tab PO DAILY cholecalciferol (vitamin D3) [Vitamin D3] 25 mcg (1,000 unit) Tablet 25 mcg PO BID levothyroxine 75 mcg tablet 75 mcg PO DAILY@0600 sennosides [senna] 8.6 mg Tablet 17.2 mg PO BEDTIME zinc oxide 13 % Cream 1 appl TOPICAL DAILY PRN (Reason: buttock) amiodarone 200 mg tablet 100 mg PO DAILY ondansetron HCl 4 mg tablet 4 mg PO Q6H PRN (Reason: Nausea) omeprazole 20 mg capsule,delayed release(DR/EC) 20 mg PO DAILY loratadine 10 mg tablet 10 mg PO DAILY tramadol 50 mg tablet 100 mg PO TID atorvastatin 20 mg tablet 20 mg PO BEDTIME clonazepam 2 mg tablet 2 mg PO BEDTIME PRN (Reason: Restless Leg(S)) alendronate 70 mg tablet 70 mg PO [place]GADO Rx Instructions: tuesday aspirin [Adult Aspirin Regimen] 81 mg tablet,delayed release (DR/EC) 81 mg PO DAILY Held valsartan 160 mg tablet 80 mg PO DAILY 90 Days Qty: 45 3RF Hold Instructions: recommend to hold for one week or resume if PCP recommends; outpatient follow up with PCP Discharge Orders: Discharge Order (Routine); Ordered 04/13/24 Ordered By: Wilfred Sin Diet: Advance to usual diet Activity on Discharge: No heavy lifting Stand Alone Forms: Patient Portal Discharge page Print Language: Mauritian Activity Restrictions/Additional Instructions: If the incision area is tender, you may apply an ice pack for short intervals (No more than 20 minutes on, followed by at least 20 minutes off). Do not apply heat. Do not use creams, lotions, or topical antibiotics. These can cause infection or allergic reaction. Ok to shower. You have sebastián closing your incision and these will be removed approximately 10-14 days after surgery. NO HEAVY LIFTING (>10lbs) or strenuous activity. Follow up in office. ([phone]) Call Your Doctor If: -Your temperature exceeds 101.5? F -You experience excessive pain or swelling -You have an unexpected reaction to medication -You have excessive bleeding -You experience continued vomiting/nausea -Your incision begins to separate -Your incision shows signs of infection such as increased redness, swelling, excessive pain, drainage (light blood or clear fluid is normal) or heat Care Plan Goals: Return to baseline health and resume normal activities following recovery period. Health Concerns: a fib watchman device in place CHF, ICD in place HTN large recurrent incisional hernia Plan of Treatment: s/p repair of large recurrent incisional hernia with mesh Abdominal binder daily. F/u in office in 1 week Assessment: Doing well post op. Discharge Date/Time: 04/13/24 13:20
== END 2024-04-13 13:20 | disposition home or self-care (01) | DRG 336 ==
LOC: HO.SSSA 07:44 → HO.S3 14:01
PROVIDERS: Admitting Provider Surgery; PCP Family Medicine; Visit Provider Surgery
PROC: 0DNW0ZZ Release Peritoneum, Open Approach (ICD-10-PCS; principal; 2024-04-11 10:00)
DX: K43.6 Other and unspecified ventral hernia with obstruction, without gangrene (principal); I42.9 Cardiomyopathy, unspecified; I50.22 Chronic systolic (congestive) heart failure; I48.0 Paroxysmal atrial fibrillation; Z95.0 Presence of cardiac pacemaker; K66.0 Peritoneal adhesions (postprocedural) (postinfection); I11.0 Hypertensive heart disease with heart failure; I25.10 Atherosclerotic heart disease of native coronary artery without angina pectoris; E78.5 Hyperlipidemia, unspecified; Z79.82 Long term (current) use of aspirin; Z79.899 Other long term (current) drug therapy
CPT/HCPCS: 36415; 80053; 85027; 88302; C1781; J0131; J0690; J1644; J2371; J2405; J2598; J2704; J2795; J3010; J7120

== ENCOUNTER → 2024-04-11 07:42 | Outpatient (BNV) | payer MEDICARE, SELFPAY | PROVIDERS: Admitting Provider Surgery; Visit Provider Surgery | DX: K43.2 Incisional hernia without obstruction or gangrene (principal) | CPT/HCPCS: 49596; 99024; 99232; 99239 ==

== ENCOUNTER → 2024-04-11 07:42 | Outpatient (BNV) | payer MEDICARE, SELFPAY | PROVIDERS: Admitting Provider Surgery; Visit Provider Physician Assistant | DX: R10.9 Unspecified abdominal pain (principal) | CPT/HCPCS: 99222; 99232 ==

== ENCOUNTER 2024-04-20 10:22 | Outpatient (AMB) | payer MEDICARE, SELFPAY ==
--- NOTE | 2024-04-20 10:25 | A.OFFVIS_ITS ---
Vital Signs 3 04/20/24 10:30 Height 5 ft 2 in Weight 176 lb 5.917 oz BMI 32.3 BP 122/82 Blood Pressure Location Lt brachial Position Sitting Intake Visit Reasons: S/P recurrent incisional hernia w/mesh Intake Note: Patient is seen in office for post op assessment post recurrent incisional hernia repair. 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 She feels great and denies any significant abdominal pain. She takes only Tylenol as needed for pain. She has been wearing an abdominal binder which is helping very well. She returns today for wound check. [facility] Medical History Asthma Degenerative joint disease Arthritis Thyroid disease Hx of transfusion of packed red blood cells Diverticulosis GERD (gastroesophageal reflux disease) Fibromyalgia Elevated liver enzymes Elevated cholesterol Osteoporosis Presence of Watchman left atrial appendage closure device Hx of radiation therapy History of chemotherapy History of uterine cancer Mild intermittent asthma Osteoarthritis of left hip Cardiomyopathy CAD (coronary artery disease) Pre-operative cardiovascular examination HTN (hypertension) Biventricular ICD (implantable cardioverter-defibrillator) in place (~04/2020) Paroxysmal atrial fibrillation LBBB (left bundle branch block) Chronic systolic heart failure Surgical History History of incisional hernia repair (04/11/24) Hx of cholecystectomy Hx of hysterectomy History of total left hip replacement Hx of hernia repair History of permanent cardiac pacemaker placement Family History Father Cancer Mother No problems noted. Social History Household Members: Family Household Members Other:: granddaughter Housing: House Are you a primary home care consultant to a significant other at home: No Do you presently have visiting nurse or other home services: Yes ([employer] [facility], meals on wheels, electronics research engineer for cleaning, bathing) Alcohol intake: never Comment: pt rings appropriately Patient Tobacco Use Status: Never used Tobacco e-Cigarette/Vaping Use: Never Used Second Hand Smoke Exposure: No Advance Directives Date on File: 10/08/21 service: No Current occupational status: retired Current occupation: rt handed Physical Exam Vital Signs: Last Vital Signs BP 122/82 04/20/24 10:30 BMI result Body Mass Index 32.3 Const General: no acute distress Limitations: ambulation with walker Resp Effort & Inspection: normal respiratory effort GI Other: Right lower quadrant abdominal incision is clean and intact without redness or discharge. There may be a small amount of subcutaneous fluid below the incision. Ren remain intact. [place] were removed and Steri-Strips applied. Abdomen image: 2 1. Incision right lower quadrant Extrem General: Yes edema Assessment & Plan Assessment & Plan (1) Hernia, ventral, with obstruction: Code(s): K43.6 - Other and unspecified ventral hernia with obstruction, without gangrene Category: Medical Plan 73-year-old female patient returning 1 week following repair of an incisional hernia on 04/11/2024. She tolerated the procedure well and her wounds are healing nicely. There is no evidence of hernia recurrence or wound infection. She should continue with the abdominal binder and avoid lifting greater than 10 lb. She will return in 1 month for wound examination. Coding Level of Care Code Global (20713) Diagnoses Hernia, ventral, with obstruction K43.6
[2024-04-20 10:30] VITALS: BP 122/82; BMI 32.3
== END 2024-04-20 10:38 | disposition home or self-care (01) ==
PROVIDERS: Visit Provider Surgery
DX: K43.6 Other and unspecified ventral hernia with obstruction, without gangrene (principal)
CPT/HCPCS: 99212

== ENCOUNTER → 2024-04-20 10:22 | Outpatient (BNVA) | payer MEDICARE, SELFPAY | PROVIDERS: Visit Provider Surgery | DX: K43.6 Other and unspecified ventral hernia with obstruction, without gangrene (principal); Z48.815 Encounter for surgical aftercare following surgery on the digestive system | CPT/HCPCS: 99212 ==

== ENCOUNTER → 2024-05-06 23:59 | Outpatient (BNV) | payer MEDICARE, SELFPAY ==
--- NOTE | 2024-05-15 15:16 | A.OFFVIS_ITS ---
Intake Visit Reasons: Remote HF Monitoring- Medtr[employer] Allergies levofloxacin [From LEVAQUIN] Allergy (Intermediate, Verified 04/20/24 10:29) RASH Darvocet-N 50 Allergy (Mild, Uncoded 04/20/24 10:29) hives Sulfacet-R Allergy (Unknown, Uncoded 04/20/24 10:29) gi PFSH Medical History Asthma Degenerative joint disease Arthritis Thyroid disease Hx of transfusion of packed red blood cells Diverticulosis GERD (gastroesophageal reflux disease) Fibromyalgia Elevated liver enzymes Elevated cholesterol Osteoporosis Presence of Watchman left atrial appendage closure device Hx of radiation therapy History of chemotherapy History of uterine cancer Mild intermittent asthma Osteoarthritis of left hip Cardiomyopathy CAD (coronary artery disease) Pre-operative cardiovascular examination HTN (hypertension) Biventricular ICD (implantable cardioverter-defibrillator) in place (~04/2020) Paroxysmal atrial fibrillation LBBB (left bundle branch block) Chronic systolic heart failure Surgical History History of incisional hernia repair (04/11/24) Hx of cholecystectomy Hx of hysterectomy History of total left hip replacement Hx of hernia repair History of permanent cardiac pacemaker placement Family History Father Cancer Mother No problems noted. Social History Household Members: Family Household Members Other:: granddaughter Housing: House Are you a primary neonatal critical care nurse to a significant other at home: No Do you presently have visiting nurse or other home services: Yes ([facility], meals on wheels, inspector and tester for cleaning, bathing) Alcohol intake: never Comment: pt rings appropriately Patient Tobacco Use Status: Never used Tobacco e-Cigarette/Vaping Use: Never Used Second Hand Smoke Exposure: No Advance Directives Date on File: 10/08/21 service: No Current occupational status: retired Current occupation: rt handed Office Procedures Cardiac Device Check Cardiac Device Check Details: Remote heart failure report generated 05/06/2024. OptiVol is elevated. Will follow-up with the patient clinically [id number] Cardiac Device Interrogation, cardio physiologic monitor Procedure code (CPT) selection complete Assessment & Plan Assessment & Plan (1) Biventricular ICD (implantable cardioverter-defibrillator) in place: Onset Date: ~04/2020 Comment: DECAtronic Code(s): Z95.810 - Presence of automatic (implantable) cardiac defibrillator Category: Medical Plan: See above Coding Level of Care Code Procedure Only Diagnoses Biventricular ICD (implantable cardioverter-defibrillator) in place Z95.810 CPT Codes Cardiac Device Check - Cardiac Device 15: [id number] Cardiac Device Interrogation, cardio physiologic monitor ([id number])
== END ==
PROVIDERS: Visit Provider Internal Medicine Cardiovascular Disease
DX: Z45.02 Encounter for adjustment and management of automatic implantable cardiac defibrillator (principal)
CPT/HCPCS: 93297

== ENCOUNTER 2024-05-22 13:22 | Outpatient (AMB) | payer MEDICARE, SELFPAY ==
--- NOTE | 2024-05-22 13:29 | A.OFFVIS_ITS ---
Vital Signs 05/22/24 13:54 Height 5 ft 2 in Weight 176 lb 5.917 oz BMI 32.3 BP 172/69 H Blood Pressure Location Lt brachial Position Sitting Pulse 88 Intake Visit Reasons: 1 mth S/P recurrent incisional hernia w/mesh Intake Note: Patient is seen in office for one month follow up visit, post recurrent incisional hernia repair. 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 She reports feeling much improved with no pain. She continues to wear the abdominal binder which he finds comfort with. She denies any new symptoms. [facility] Medical History Hernia, ventral, with obstruction Asthma Degenerative joint disease Arthritis Thyroid disease Hx of transfusion of packed red blood cells Diverticulosis GERD (gastroesophageal reflux disease) Fibromyalgia Elevated liver enzymes Elevated cholesterol Osteoporosis Presence of Watchman left atrial appendage closure device Hx of radiation therapy History of chemotherapy History of uterine cancer Mild intermittent asthma Osteoarthritis of left hip Cardiomyopathy CAD (coronary artery disease) Pre-operative cardiovascular examination HTN (hypertension) Biventricular ICD (implantable cardioverter-defibrillator) in place (~04/2020) Paroxysmal atrial fibrillation LBBB (left bundle branch block) Chronic systolic heart failure Surgical History History of incisional hernia repair (04/11/24) Hx of cholecystectomy Hx of hysterectomy History of total left hip replacement Hx of hernia repair History of permanent cardiac pacemaker placement Family History Father Cancer Mother No problems noted. Social History Household Members: Family Household Members Other:: granddaughter Housing: House Are you a primary home care manager rn to a significant other at home: No Do you presently have visiting nurse or other home services: Yes ([employer] [facility], meals on wheels, photo studio assistant for cleaning, bathing) Alcohol intake: never Comment: pt rings appropriately Patient Tobacco Use Status: Never used Tobacco e-Cigarette/Vaping Use: Never Used Second Hand Smoke Exposure: No Advance Directives Date on File: 10/08/21 service: No Current occupational status: retired Current occupation: rt handed Physical Exam Vital Signs: Last Vital Signs Pulse 88 05/22/24 13:54 BP 172/69 H 05/22/24 13:54 BMI result Body Mass Index 32.3 Const General: comfortable Nutritional Appearance: well nourished Orientation/consciousness: patient oriented x3 Limitations: ambulation with walker GI Other: Abdominal incision is clean, dry, and intact. Slight swelling which may be protrusion of the mesh verses a smaller hematoma. No changes are noted with Valsalva maneuvers. No erythema is appreciated. Skin Other: Warm and dry, Neuro General: patient oriented x3 Assessment & Plan Assessment & Plan (1) Recurrent ventral hernia: Code(s): K43.2 - Incisional hernia without obstruction or gangrene Category: Medical Plan Patient returns 1 month following repair of a large recurrent incisional hernia. Her wounds are now well healed with no evidence of infection or hernia recurrence. She should follow up as needed. Coding Level of Care Code Global (38413) Diagnoses Recurrent ventral hernia K43.2
[2024-05-22 13:54] VITALS: BP 172/69; PULSE 88; BMI 32.3
== END 2024-05-22 14:07 | disposition home or self-care (01) ==
PROVIDERS: Visit Provider Surgery
DX: K43.2 Incisional hernia without obstruction or gangrene (principal)
CPT/HCPCS: 99212

== ENCOUNTER → 2024-05-22 13:22 | Outpatient (BNVA) | payer MEDICARE, SELFPAY | PROVIDERS: Visit Provider Surgery | DX: Z09 Encounter for follow-up examination after completed treatment for conditions other than malignant neoplasm (principal); Z87.19 Personal history of other diseases of the digestive system | CPT/HCPCS: 99212 ==

== ENCOUNTER → 2024-06-06 23:59 | Outpatient (BNV) | payer MEDICARE, SELFPAY ==
--- NOTE | 2024-06-08 12:29 | A.OFFVIS_ITS ---
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 Allergies levofloxacin [From LEVAQUIN] Allergy (Intermediate, Verified 05/22/24 13:29) RASH Darvocet-N 50 Allergy (Mild, Uncoded 05/22/24 13:29) hives Sulfacet-R Allergy (Unknown, Uncoded 05/22/24 13:29) gi PFSH Medical History Hernia, ventral, with obstruction Asthma Degenerative joint disease Arthritis Thyroid disease Hx of transfusion of packed red blood cells Diverticulosis GERD (gastroesophageal reflux disease) Fibromyalgia Elevated liver enzymes Elevated cholesterol Osteoporosis Presence of Watchman left atrial appendage closure device Hx of radiation therapy History of chemotherapy History of uterine cancer Mild intermittent asthma Osteoarthritis of left hip Cardiomyopathy CAD (coronary artery disease) Pre-operative cardiovascular examination HTN (hypertension) Biventricular ICD (implantable cardioverter-defibrillator) in place (~04/2020) Paroxysmal atrial fibrillation LBBB (left bundle branch block) Chronic systolic heart failure Surgical History History of incisional hernia repair (04/11/24) Hx of cholecystectomy Hx of hysterectomy History of total left hip replacement Hx of hernia repair History of permanent cardiac pacemaker placement Family History Father Cancer Mother No problems noted. Social History Household Members: Family Household Members Other:: granddaughter Housing: House Are you a primary critical care transport nurse to a significant other at home: No Do you presently have visiting nurse or other home services: Yes ([employer] eldercare, meals on wheels, staff accountant for cleaning, bathing) Alcohol intake: never Comment: pt rings appropriately Patient Tobacco Use Status: Never used Tobacco e-Cigarette/Vaping Use: Never Used Second Hand Smoke Exposure: No Advance Directives Date on File: 10/08/21 service: No Current occupational status: retired Current occupation: rt handed Office Procedures Cardiac Device Check Cardiac Device Check Details: Remote heart failure report generated 06/05/2024. Heart failure parameters are stable [id number] Cardiac Device Interrogation, cardio physiologic monitor Procedure code (CPT) selection complete Assessment & Plan Assessment & Plan (1) Biventricular ICD (implantable cardioverter-defibrillator) in place: Onset Date: ~04/2020 Comment: centrosetronic Code(s): Z95.810 - Presence of automatic (implantable) cardiac defibrillator Category: Medical Plan: See above Coding Level of Care Code Procedure Only Diagnoses Biventricular ICD (implantable cardioverter-defibrillator) in place Z95.810 CPT Codes Cardiac Device Check - Cardiac Device 15: [id number] Cardiac Device Interrogation, cardio physiologic monitor ([id number])
== END ==
PROVIDERS: Visit Provider Internal Medicine Cardiovascular Disease
DX: Z45.02 Encounter for adjustment and management of automatic implantable cardiac defibrillator (principal)
CPT/HCPCS: 93297

== ENCOUNTER → 2024-07-07 23:59 | Outpatient (BNV) | payer MEDICARE, SELFPAY ==
--- NOTE | 2024-07-11 15:29 | MHC.OFFVIS ---
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 Allergies levofloxacin [From LEVAQUIN] Allergy (Intermediate, Verified 05/22/24 13:29) RASH Darvocet-N 50 Allergy (Mild, Uncoded 05/22/24 13:29) hives Sulfacet-R Allergy (Unknown, Uncoded 05/22/24 13:29) gi PFSH Medical History Hernia, ventral, with obstruction Asthma Degenerative joint disease Arthritis Thyroid disease Hx of transfusion of packed red blood cells Diverticulosis GERD (gastroesophageal reflux disease) Fibromyalgia Elevated liver enzymes Elevated cholesterol Osteoporosis Presence of Watchman left atrial appendage closure device Hx of radiation therapy History of chemotherapy History of uterine cancer Mild intermittent asthma Osteoarthritis of left hip Cardiomyopathy CAD (coronary artery disease) Pre-operative cardiovascular examination HTN (hypertension) Biventricular ICD (implantable cardioverter-defibrillator) in place (~04/2020) Paroxysmal atrial fibrillation LBBB (left bundle branch block) Chronic systolic heart failure Surgical History History of incisional hernia repair (04/11/24) Hx of cholecystectomy Hx of hysterectomy History of total left hip replacement Hx of hernia repair History of permanent cardiac pacemaker placement Family History Father Cancer Mother No problems noted. Social History Household Members: Family Household Members Other:: granddaughter Housing: House Are you a primary health careers instructor to a significant other at home: No Do you presently have visiting nurse or other home services: Yes ([employer] eldercare, meals on wheels, ep technologist for cleaning, bathing) Alcohol intake: never Comment: pt rings appropriately Patient Tobacco Use Status: Never used Tobacco e-Cigarette/Vaping Use: Never Used Second Hand Smoke Exposure: No Advance Directives Date on File: 10/08/21 service: No Current occupational status: retired Current occupation: rt handed Office Procedures Cardiac Device Check Cardiac Device Check Details: Remote heart failure report generated 07/07/2024. Heart failure parameters are stable [id number] Cardiac Device Interrogation, cardio physiologic monitor Procedure code (CPT) selection complete Assessment & Plan Assessment & Plan (1) Biventricular ICD (implantable cardioverter-defibrillator) in place: Onset Date: ~04/2020 Comment: Primary [employer] Code(s): Z95.810 - Presence of automatic (implantable) cardiac defibrillator Category: Medical Plan: See above Coding Level of Care Code Procedure Only Diagnoses Biventricular ICD (implantable cardioverter-defibrillator) in place Z95.810 CPT Codes Cardiac Device Check - Cardiac Device 15: [id number] Cardiac Device Interrogation, cardio physiologic monitor ([id number])
== END ==
PROVIDERS: Visit Provider Internal Medicine Cardiovascular Disease
DX: I50.9 Heart failure, unspecified (principal); Z95.810 Presence of automatic (implantable) cardiac defibrillator
CPT/HCPCS: 93297

== ENCOUNTER → 2024-07-07 23:59 | Outpatient (BNV) | payer MEDICARE, SELFPAY ==
--- NOTE | 2024-07-11 15:28 | A.OFFVIS_ITS ---
Intake Visit Reasons: Remote ICD Check- Medtronic Allergies levofloxacin [From LEVAQUIN] Allergy (Intermediate, Verified 05/22/24 13:29) RASH Darvocet-N 50 Allergy (Mild, Uncoded 05/22/24 13:29) hives Sulfacet-R Allergy (Unknown, Uncoded 05/22/24 13:29) gi PFSH Medical History Hernia, ventral, with obstruction Asthma Degenerative joint disease Arthritis Thyroid disease Hx of transfusion of packed red blood cells Diverticulosis GERD (gastroesophageal reflux disease) Fibromyalgia Elevated liver enzymes Elevated cholesterol Osteoporosis Presence of Watchman left atrial appendage closure device Hx of radiation therapy History of chemotherapy History of uterine cancer Mild intermittent asthma Osteoarthritis of left hip Cardiomyopathy CAD (coronary artery disease) Pre-operative cardiovascular examination HTN (hypertension) Biventricular ICD (implantable cardioverter-defibrillator) in place (~04/2020) Paroxysmal atrial fibrillation LBBB (left bundle branch block) Chronic systolic heart failure Surgical History History of incisional hernia repair (04/11/24) Hx of cholecystectomy Hx of hysterectomy History of total left hip replacement Hx of hernia repair History of permanent cardiac pacemaker placement Family History Father Cancer Mother No problems noted. Social History Household Members: Family Household Members Other:: granddaughter Housing: House Are you a primary medicare contact specialist to a significant other at home: No Do you presently have visiting nurse or other home services: Yes ([employer] elder[employer], meals on wheels, appliance service representative for cleaning, bathing) Alcohol intake: never Comment: pt rings appropriately Patient Tobacco Use Status: Never used Tobacco e-Cigarette/Vaping Use: Never Used Second Hand Smoke Exposure: No Advance Directives Date on File: 10/08/21 service: No Current occupational status: retired Current occupation: rt handed Office Procedures Cardiac Device Check Cardiac Device Check Details: Remote ICD report generated 07/07/2024. ICD function is adequate. Bi V pacing 97.6% of the time [id number] Cardiac Interrogation, implant defibrillator w/interim Procedure code (CPT) selection complete Assessment & Plan Assessment & Plan (1) Biventricular ICD (implantable cardioverter-defibrillator) in place: Onset Date: ~04/2020 Comment: LawbitDoc[employer]onic Code(s): Z95.810 - Presence of automatic (implantable) cardiac defibrillator Category: Medical Plan: See above Coding Level of Care Code Procedure Only Diagnoses Biventricular ICD (implantable cardioverter-defibrillator) in place Z95.810 CPT Codes Cardiac Device Check - Cardiac Device 13: [id number] Cardiac Interrogation, implant defibrillator w/interim ([id number])
== END ==
PROVIDERS: Visit Provider Internal Medicine Cardiovascular Disease
DX: Z45.02 Encounter for adjustment and management of automatic implantable cardiac defibrillator (principal)
CPT/HCPCS: 93295

== ENCOUNTER 2024-07-31 14:31 | Outpatient (AMB) | payer MEDICARE, SELFPAY ==
[2024-07-31 14:43] VITALS: BP 124/82; PULSE 61; BMI 32.7
--- NOTE | 2024-07-31 14:43 | A.OFFVIS_ITS ---
Vital Signs 07/31/24 14:43 Height 5 ft 2 in Weight 178 lb 9.191 oz BMI 32.7 BP 124/82 Blood Pressure Location Rt brachial Position Sitting Pulse 61 Intake Visit Reasons: r/s 07/05/24 6 mos followup Intake Note: 6 month follow-up with ekg and Medtronic check leg swelling need extra lasix often Top Taper Machine Required: No Allergies levofloxacin [From LEVAQUIN] Allergy (Intermediate, Verified 05/22/24 13:29) RASH Darvocet-N 50 Allergy (Mild, Uncoded 05/22/24 13:29) hives Sulfacet-R Allergy (Unknown, Uncoded 05/22/24 13:29) gi Medication List - Last Reconciled 07/31/24 by Marvin Swanson MD alendronate 70 mg PO DELGADO amiodarone 100 mg PO DAILY aspirin (Adult Aspirin Regimen) 81 mg PO DAILY atorvastatin 20 mg PO BEDTIME carvedilol 12.5 mg PO BID cholecalciferol (vitamin D3) (Vitamin D3) 25 mcg PO BID clonazepam 2 mg PO BEDTIME PRN compression socks, medium As directed furosemide 20 mg PO DAILY levothyroxine 75 mcg PO DAILY@0600 loratadine 10 mg PO DAILY multivitamin 1 tab PO DAILY omeprazole 20 mg PO DAILY ondansetron HCl 4 mg PO Q6H PRN sennosides (senna) 17.2 mg PO BEDTIME tramadol 100 mg PO TID valsartan 80 mg (1/2 x 160 mg) PO DAILY 90 days zinc oxide 13% 1 appl topical DAILY PRN HPI Comments Details: Marlin comes for follow-up. She has been overall doing well. She uses a walker and tries to walk in the yd. She denies any progressive heart failure symptoms except for intermittent leg edema for which she then takes increase Lasix for 2- 3 days. This happens infrequently. She says she has been eating a lot of snacks and not necessarily watch in his salt intake. Denies any prolonged palpitation irregular heartbeat. Denies any orthopnea, PND. Takes all her medications regularly. No lightheadedness, syncope, ICD discharge. No exertional chest pain PFSH Medical History Hernia, ventral, with obstruction Asthma Degenerative joint disease Arthritis Thyroid disease Hx of transfusion of packed red blood cells Diverticulosis GERD (gastroesophageal reflux disease) Fibromyalgia Elevated liver enzymes Elevated cholesterol Osteoporosis Presence of Watchman left atrial appendage closure device Hx of radiation therapy History of chemotherapy History of uterine cancer Mild intermittent asthma Osteoarthritis of left hip Cardiomyopathy CAD (coronary artery disease) Pre-operative cardiovascular examination HTN (hypertension) Biventricular ICD (implantable cardioverter-defibrillator) in place (~04/2020) Paroxysmal atrial fibrillation LBBB (left bundle branch block) Chronic systolic heart failure Surgical History History of incisional hernia repair (04/11/24) Hx of cholecystectomy Hx of hysterectomy History of total left hip replacement Hx of hernia repair History of permanent cardiac pacemaker placement Family History Father Cancer Mother No problems noted. 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, meals on wheels, subpoena server for cleaning, bathing) Alcohol intake: never Comment: pt rings appropriately Patient Tobacco Use Status: Never used Tobacco e-Cigarette/Vaping Use: Never Used Second Hand Smoke Exposure: No Advance Directives Date on File: 10/08/21 service: No Current occupational status: retired Current occupation: rt handed Review of Systems Const Denies chills, Denies fatigue, Denies fever(s), Denies frequent falls, Denies weakness, Denies weight gain and Denies weight loss ENT Denies dizziness Card Denies chest pain, Denies leg edema, Denies lightheadedness, Denies palpitations, Denies dyspnea, Denies dyspnea on exertion, Denies orthopnea and Denies other (loss of consciousness) Resp Denies cough, Denies dyspnea and Denies dyspnea on exertion GI Denies hematochezia and Denies change in stool character Musc Denies abnormal gait, Denies muscle weakness, Denies numbness, Denies radiating pain into limb and Denies tingling Neuro Denies abnormal gait, Denies dizziness, Denies frequent falls, Denies numbness, Denies tingling and Denies weakness Endo Denies fatigue and Denies palpitations Physical Exam Vital Signs: Last Vital Signs Pulse 61 07/31/24 14:43 BP 124/82 07/31/24 14:43 BMI result Body Mass Index 32.7 Last Vital Signs Temp 97 F 01/11/24 06:46 Pulse 63 01/11/24 06:46 Resp 16 01/11/24 06:46 BP 141/63 H 01/11/24 06:46 Pulse Ox 95 01/11/24 06:46 O2 Del Method Room Air 01/11/24 06:46 BMI result Body Mass Index 33.8 Const General: cooperative, comfortable, alert, awake and tired appearing Nutritional Appearance: overweight Orientation/consciousness: patient oriented x3 HEENT Head: Yes normocephalic and Yes atraumatic Neck Neck: Yes trachea midline, Yes supple and Yes no JVD Resp Effort & Inspection: normal respiratory effort Auscultation: clear to auscultation bilaterally Cardio Jugular venous distension: no JVD Palpation: normal PMI Rate: regular rate Rhythm: regular rhythm Heart sounds: S1 normal heart sound present, S2 normal heart sound present, no click, no gallops and no murmurs GI Inspection: Yes other (Soft bowel sounds with some tenderness in the periumbilical area) Skin General skin exam: no rashes or lesions noted Neuro General: patient oriented x3 and no focal motor deficits Extrem General: Yes no clubbing, cyanosis or edema Office Procedures Cardiac Device Check Cardiac Device Check Details: Biventricular Medtronic ICD in place. Programmed in DDDR at 60 beats per minute. Biventricular pacing 97% time. No arrhythmias noted. Atrial ventricular sensing is adequate. Pacing and shock lead impedance is stable. Atrial and biventricular pacing thresholds adequate and reprogrammed to enhance battery life. Battery life is at about 3.6 years. [id number] Cardiac Device Check, multi lead implantable defibrillator Procedure code (CPT) selection complete EKG Details: EKG shows AV dual paced rhythm with LV pacing [id number], Complete Assessment & Plan Assessment & Plan (1) Chronic systolic heart failure: Code(s): I50.22 - Chronic systolic (congestive) heart failure Category: Medical Plan: Prior history of heart failure with reduced ejection fraction severe LV systolic dysfunction is improved with maintenance rhythm as well as Bi V therapy and current neurohormonal modulation. Clinically appears to be mildly fluid overloaded. She understands management of this well and is going to take extra Lasix for the next 2-3 days till she has improvement in her fluid status. Continue current otherwise diuretic therapy. Continue carvedilol, valsartan therapy for neurohormonal modulation. No symptoms of syncope on current therapy. Blood pressure is well optimized. Low-salt diet was discussed. Daily weight monitoring avoidance salt loading was discussed. (2) Biventricular ICD (implantable cardioverter-defibrillator) in place: Onset Date: ~04/2020 Comment: Medtronic Code(s): Z95.810 - Presence of automatic (implantable) cardiac defibrillator Category: Medical Plan: Bi V ICD in place, working well. Reprogrammed for adequate function. Will continue monitor remotely for heart failure and device function. (3) Paroxysmal atrial fibrillation: Code(s): I48.0 - Paroxysmal atrial fibrillation Category: Medical Plan: Paroxysmal atrial fibrillation, currently on amiodarone therapy with improvement in overall atrial fibrillation burden and heart failure syndrome. Has maintain rhythm. Annual check for amiodarone toxicity. Continue low-dose aspirin therapy. Patient status post Watchman device. Will follow up in the clinic in 6 months time, sooner p.r.n.. Thank you for allowing me to partake in his care Orders: Orders CA echo transthoracic complete 6 Months I50.22 - Chronic systolic (congestive) heart failure Coding Level of Care Code Est Pt Level 4 (79668) Diagnoses Chronic systolic heart failure I50.22 Biventricular ICD (implantable cardioverter-defibrillator) in place Z95.810 Paroxysmal atrial fibrillation I48.0 CPT Codes Cardiac Device Check - Cardiac Device 6: [id number] Cardiac Device Check, multi lead implantable defibrillator ([id number]) EKG - CPT: 69801-Kbztuvvgbvtppydke, Complete ([id number])
== END 2024-07-31 15:15 | disposition home or self-care (01) ==
PROVIDERS: Visit Provider Internal Medicine Cardiovascular Disease
DX: I50.22 Chronic systolic (congestive) heart failure (principal); Z95.810 Presence of automatic (implantable) cardiac defibrillator; I48.0 Paroxysmal atrial fibrillation
CPT/HCPCS: 93010; 93284; 99214

== ENCOUNTER → 2024-07-31 14:31 | Outpatient (BNVA) | payer MEDICARE, SELFPAY | PROVIDERS: Visit Provider Internal Medicine Cardiovascular Disease | DX: I48.0 Paroxysmal atrial fibrillation (principal); I11.0 Hypertensive heart disease with heart failure; I50.22 Chronic systolic (congestive) heart failure; Z45.02 Encounter for adjustment and management of automatic implantable cardiac defibrillator | CPT/HCPCS: 93005; 99212 ==

== ENCOUNTER → 2024-08-07 23:59 | Outpatient (BNV) | payer MEDICARE, SELFPAY ==
--- NOTE | 2024-08-08 11:54 | A.OFFVIS_ITS ---
Intake Visit Reasons: Remote HF Monitoring- Medtronic Allergies levofloxacin [From LEVAQUIN] Allergy (Intermediate, Verified 05/22/24 13:29) RASH Darvocet-N 50 Allergy (Mild, Uncoded 05/22/24 13:29) hives Sulfacet-R Allergy (Unknown, Uncoded 05/22/24 13:29) gi PFSH Medical History Hernia, ventral, with obstruction Asthma Degenerative joint disease Arthritis Thyroid disease Hx of transfusion of packed red blood cells Diverticulosis GERD (gastroesophageal reflux disease) Fibromyalgia Elevated liver enzymes Elevated cholesterol Osteoporosis Presence of Watchman left atrial appendage closure device Hx of radiation therapy History of chemotherapy History of uterine cancer Mild intermittent asthma Osteoarthritis of left hip Cardiomyopathy CAD (coronary artery disease) Pre-operative cardiovascular examination HTN (hypertension) Biventricular ICD (implantable cardioverter-defibrillator) in place (~04/2020) Paroxysmal atrial fibrillation LBBB (left bundle branch block) Chronic systolic heart failure Surgical History History of incisional hernia repair (04/11/24) Hx of cholecystectomy Hx of hysterectomy History of total left hip replacement Hx of hernia repair History of permanent cardiac pacemaker placement Family History Father Cancer Mother No problems noted. Social History Household Members: Family Household Members Other:: granddaughter Housing: House Are you a primary care aide to a significant other at home: No Do you presently have visiting nurse or other home services: Yes (ass eldercare, meals on wheels, medical customer service representative for cleaning, bathing) Alcohol intake: never Comment: pt rings appropriately Patient Tobacco Use Status: Never used Tobacco e-Cigarette/Vaping Use: Never Used Second Hand Smoke Exposure: No Advance Directives Date on File: 10/08/21 service: No Current occupational status: retired Current occupation: rt handed Office Procedures Cardiac Device Check Cardiac Device Check Details: Remote heart failure report generated 08/07/2024. Heart failure parameters are stable [id number] Cardiac Device Interrogation, cardio physiologic monitor Procedure code (CPT) selection complete Assessment & Plan Assessment & Plan (1) Biventricular ICD (implantable cardioverter-defibrillator) in place: Onset Date: ~04/2020 Comment: [employer] Code(s): Z95.810 - Presence of automatic (implantable) cardiac defibrillator Category: Medical Plan: See above Coding Level of Care Code Procedure Only Diagnoses Biventricular ICD (implantable cardioverter-defibrillator) in place Z95.810 CPT Codes Cardiac Device Check - Cardiac Device 15: [id number] Cardiac Device Interrogation, cardio physiologic monitor ([id number])
== END ==
PROVIDERS: Visit Provider Internal Medicine Cardiovascular Disease
DX: Z45.02 Encounter for adjustment and management of automatic implantable cardiac defibrillator (principal)
CPT/HCPCS: 93297

== ENCOUNTER → 2024-09-07 23:59 | Outpatient (BNV) | payer MEDICARE, SELFPAY ==
--- NOTE | 2024-09-19 15:39 | MHC.OFFVIS ---
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 Allergies levofloxacin [From LEVAQUIN] Allergy (Intermediate, Verified 05/22/24 13:29) RASH Darvocet-N 50 Allergy (Mild, Uncoded 05/22/24 13:29) hives Sulfacet-R Allergy (Unknown, Uncoded 05/22/24 13:29) gi PFSH Medical History Hernia, ventral, with obstruction Asthma Degenerative joint disease Arthritis Thyroid disease Hx of transfusion of packed red blood cells Diverticulosis GERD (gastroesophageal reflux disease) Fibromyalgia Elevated liver enzymes Elevated cholesterol Osteoporosis Presence of Watchman left atrial appendage closure device Hx of radiation therapy History of chemotherapy History of uterine cancer Mild intermittent asthma Osteoarthritis of left hip Cardiomyopathy CAD (coronary artery disease) Pre-operative cardiovascular examination HTN (hypertension) Biventricular ICD (implantable cardioverter-defibrillator) in place (~04/2020) Paroxysmal atrial fibrillation LBBB (left bundle branch block) Chronic systolic heart failure Surgical History History of incisional hernia repair (04/11/24) Hx of cholecystectomy Hx of hysterectomy History of total left hip replacement Hx of hernia repair History of permanent cardiac pacemaker placement Family History Father Cancer Mother No problems noted. 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 I was requested to read this study today. Heart failure parameters are within normal limits [id number] Cardiac Device Interrogation, cardio physiologic monitor Procedure code (CPT) selection complete Assessment & Plan Assessment & Plan (1) Biventricular ICD (implantable cardioverter-defibrillator) in place: Onset Date: ~04/2020 Comment: Medtronic Code(s): Z95.810 - Presence of automatic (implantable) cardiac defibrillator Category: Medical Plan: See above Coding Level of Care Code Procedure Only Diagnoses Biventricular ICD (implantable cardioverter-defibrillator) in place Z95.810 CPT Codes Cardiac Device Check - Cardiac Device 15: [id number] Cardiac Device Interrogation, cardio physiologic monitor ([id number])
== END ==
PROVIDERS: Visit Provider Internal Medicine Cardiovascular Disease
DX: Z45.02 Encounter for adjustment and management of automatic implantable cardiac defibrillator (principal)
CPT/HCPCS: 93297

== ENCOUNTER → 2024-10-07 23:59 | Outpatient (BNV) | payer MEDICARE, SELFPAY ==
--- NOTE | 2024-10-10 15:18 | MHC.OFFVIS ---
Intake Visit Reasons: Remote ICD check- Medtronic Allergies levofloxacin [From LEVAQUIN] Allergy (Intermediate, Verified 05/22/24 13:29) RASH Darvocet-N 50 Allergy (Mild, Uncoded 05/22/24 13:29) hives Sulfacet-R Allergy (Unknown, Uncoded 05/22/24 13:29) gi PFSH Medical History Hernia, ventral, with obstruction Asthma Degenerative joint disease Arthritis Thyroid disease Hx of transfusion of packed red blood cells Diverticulosis GERD (gastroesophageal reflux disease) Fibromyalgia Elevated liver enzymes Elevated cholesterol Osteoporosis Presence of Watchman left atrial appendage closure device Hx of radiation therapy History of chemotherapy History of uterine cancer Mild intermittent asthma Osteoarthritis of left hip Cardiomyopathy CAD (coronary artery disease) Pre-operative cardiovascular examination HTN (hypertension) Biventricular ICD (implantable cardioverter-defibrillator) in place (~04/2020) Paroxysmal atrial fibrillation LBBB (left bundle branch block) Chronic systolic heart failure Surgical History History of incisional hernia repair (04/11/24) Hx of cholecystectomy Hx of hysterectomy History of total left hip replacement Hx of hernia repair History of permanent cardiac pacemaker placement Family History Father Cancer Mother No problems noted. 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 ICD function is adequate. Bi V pacing 96.6% time [id number] Cardiac Interrogation, implant defibrillator w/interim Procedure code (CPT) selection complete Assessment & Plan Assessment & Plan (1) Biventricular ICD (implantable cardioverter-defibrillator) in place: Onset Date: ~04/2020 Comment: [employer] Code(s): Z95.810 - Presence of automatic (implantable) cardiac defibrillator Category: Medical Plan: See above Coding Level of Care Code Procedure Only Diagnoses Biventricular ICD (implantable cardioverter-defibrillator) in place Z95.810 CPT Codes Cardiac Device Check - Cardiac Device 13: [id number] Cardiac Interrogation, implant defibrillator w/interim ([id number])
== END ==
PROVIDERS: Visit Provider Internal Medicine Cardiovascular Disease
DX: Z45.02 Encounter for adjustment and management of automatic implantable cardiac defibrillator (principal)
CPT/HCPCS: 93295

== ENCOUNTER → 2024-10-07 23:59 | Outpatient (BNV) | payer MEDICARE, SELFPAY ==
--- NOTE | 2024-10-10 15:17 | A.OFFVIS_ITS ---
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 Allergies levofloxacin [From LEVAQUIN] Allergy (Intermediate, Verified 05/22/24 13:29) RASH Darvocet-N 50 Allergy (Mild, Uncoded 05/22/24 13:29) hives Sulfacet-R Allergy (Unknown, Uncoded 05/22/24 13:29) gi PFSH Medical History Hernia, ventral, with obstruction Asthma Degenerative joint disease Arthritis Thyroid disease Hx of transfusion of packed red blood cells Diverticulosis GERD (gastroesophageal reflux disease) Fibromyalgia Elevated liver enzymes Elevated cholesterol Osteoporosis Presence of Watchman left atrial appendage closure device Hx of radiation therapy History of chemotherapy History of uterine cancer Mild intermittent asthma Osteoarthritis of left hip Cardiomyopathy CAD (coronary artery disease) Pre-operative cardiovascular examination HTN (hypertension) Biventricular ICD (implantable cardioverter-defibrillator) in place (~04/2020) Paroxysmal atrial fibrillation LBBB (left bundle branch block) Chronic systolic heart failure Surgical History History of incisional hernia repair (04/11/24) Hx of cholecystectomy Hx of hysterectomy History of total left hip replacement Hx of hernia repair History of permanent cardiac pacemaker placement Family History Father Cancer Mother No problems noted. 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 Heart failure parameters are stable [id number] Cardiac Device Interrogation, cardio physiologic monitor Procedure code (CPT) selection complete Assessment & Plan Assessment & Plan (1) Biventricular ICD (implantable cardioverter-defibrillator) in place: Onset Date: ~04/2020 Comment: [employer] Code(s): Z95.810 - Presence of automatic (implantable) cardiac defibrillator Category: Medical Plan: See above Coding Level of Care Code Procedure Only Diagnoses Biventricular ICD (implantable cardioverter-defibrillator) in place Z95.810 CPT Codes Cardiac Device Check - Cardiac Device 15: [id number] Cardiac Device Interrogation, cardio physiologic monitor ([id number])
== END ==
PROVIDERS: Visit Provider Internal Medicine Cardiovascular Disease
DX: Z45.02 Encounter for adjustment and management of automatic implantable cardiac defibrillator (principal)
CPT/HCPCS: 93297

== ENCOUNTER → 2024-11-06 23:59 | Outpatient (BNV) | payer MEDICARE, SELFPAY ==
--- NOTE | 2024-11-12 16:23 | MHC.OFFVIS ---
Intake Visit Reasons: Remote ICD check- Medtronic Allergies levofloxacin [From LEVAQUIN] Allergy (Intermediate, Verified 05/22/24 13:29) RASH Darvocet-N 50 Allergy (Mild, Uncoded 05/22/24 13:29) hives Sulfacet-R Allergy (Unknown, Uncoded 05/22/24 13:29) gi PFSH Medical History Hernia, ventral, with obstruction Asthma Degenerative joint disease Arthritis Thyroid disease Hx of transfusion of packed red blood cells Diverticulosis GERD (gastroesophageal reflux disease) Fibromyalgia Elevated liver enzymes Elevated cholesterol Osteoporosis Presence of Watchman left atrial appendage closure device Hx of radiation therapy History of chemotherapy History of uterine cancer Mild intermittent asthma Osteoarthritis of left hip Cardiomyopathy CAD (coronary artery disease) Pre-operative cardiovascular examination HTN (hypertension) Biventricular ICD (implantable cardioverter-defibrillator) in place (~04/2020) Paroxysmal atrial fibrillation LBBB (left bundle branch block) Chronic systolic heart failure Surgical History History of incisional hernia repair (04/11/24) Hx of cholecystectomy Hx of hysterectomy History of total left hip replacement Hx of hernia repair History of permanent cardiac pacemaker placement Family History Father Cancer Mother No problems noted. 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 Heart failure parameters are stable [id number] Cardiac Device Interrogation, cardio physiologic monitor Procedure code (CPT) selection complete Assessment & Plan Assessment & Plan (1) Biventricular ICD (implantable cardioverter-defibrillator) in place: Onset Date: ~04/2020 Comment: [employer] Code(s): Z95.810 - Presence of automatic (implantable) cardiac defibrillator Category: Medical Plan: See above Coding Level of Care Code Procedure Only Diagnoses Biventricular ICD (implantable cardioverter-defibrillator) in place Z95.810 CPT Codes Cardiac Device Check - Cardiac Device 15: [id number] Cardiac Device Interrogation, cardio physiologic monitor ([id number])
== END ==
PROVIDERS: Visit Provider Internal Medicine Cardiovascular Disease
DX: Z45.02 Encounter for adjustment and management of automatic implantable cardiac defibrillator (principal)
CPT/HCPCS: 93297

== ENCOUNTER → 2024-12-06 23:59 | Outpatient (BNV) | payer MEDICARE, SELFPAY ==
--- NOTE | 2024-12-10 11:04 | A.OFFVIS_ITS ---
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 Allergies levofloxacin [From LEVAQUIN] Allergy (Intermediate, Verified 05/22/24 13:29) RASH Darvocet-N 50 Allergy (Mild, Uncoded 05/22/24 13:29) hives Sulfacet-R Allergy (Unknown, Uncoded 05/22/24 13:29) gi PFSH Medical History Hernia, ventral, with obstruction Asthma Degenerative joint disease Arthritis Thyroid disease Hx of transfusion of packed red blood cells Diverticulosis GERD (gastroesophageal reflux disease) Fibromyalgia Elevated liver enzymes Elevated cholesterol Osteoporosis Presence of Watchman left atrial appendage closure device Hx of radiation therapy History of chemotherapy History of uterine cancer Mild intermittent asthma Osteoarthritis of left hip Cardiomyopathy CAD (coronary artery disease) Pre-operative cardiovascular examination HTN (hypertension) Biventricular ICD (implantable cardioverter-defibrillator) in place (~04/2020) Paroxysmal atrial fibrillation LBBB (left bundle branch block) Chronic systolic heart failure Surgical History History of incisional hernia repair (04/11/24) Hx of cholecystectomy Hx of hysterectomy History of total left hip replacement Hx of hernia repair History of permanent cardiac pacemaker placement Family History Father Cancer Mother No problems noted. 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 Heart failure parameters are stable [id number] Cardiac Device Interrogation, cardio physiologic monitor Procedure code (CPT) selection complete Assessment & Plan Assessment & Plan (1) Biventricular ICD (implantable cardioverter-defibrillator) in place: Onset Date: ~04/2020 Comment: [employer] Code(s): Z95.810 - Presence of automatic (implantable) cardiac defibrillator Category: Medical Plan: See above Coding Level of Care Code Procedure Only Diagnoses Biventricular ICD (implantable cardioverter-defibrillator) in place Z95.810 CPT Codes Cardiac Device Check - Cardiac Device 15: [id number] Cardiac Device Interrogation, cardio physiologic monitor ([id number])
== END ==
PROVIDERS: Visit Provider Internal Medicine Cardiovascular Disease
DX: Z45.02 Encounter for adjustment and management of automatic implantable cardiac defibrillator (principal)
CPT/HCPCS: 93297

== ENCOUNTER → 2025-01-06 23:59 | Outpatient (BNV) | payer MEDICARE, SELFPAY ==
--- NOTE | 2025-01-09 15:13 | MHC.OFFVIS ---
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 Allergies levofloxacin [From LEVAQUIN] Allergy (Intermediate, Verified 05/22/24 13:29) RASH Darvocet-N 50 Allergy (Mild, Uncoded 05/22/24 13:29) hives Sulfacet-R Allergy (Unknown, Uncoded 05/22/24 13:29) gi PFSH Medical History Hernia, ventral, with obstruction Asthma Degenerative joint disease Arthritis Thyroid disease Hx of transfusion of packed red blood cells Diverticulosis GERD (gastroesophageal reflux disease) Fibromyalgia Elevated liver enzymes Elevated cholesterol Osteoporosis Presence of Watchman left atrial appendage closure device Hx of radiation therapy History of chemotherapy History of uterine cancer Mild intermittent asthma Osteoarthritis of left hip Cardiomyopathy CAD (coronary artery disease) Pre-operative cardiovascular examination HTN (hypertension) Biventricular ICD (implantable cardioverter-defibrillator) in place (~04/2020) Paroxysmal atrial fibrillation LBBB (left bundle branch block) Chronic systolic heart failure Surgical History History of incisional hernia repair (04/11/24) Hx of cholecystectomy Hx of hysterectomy History of total left hip replacement Hx of hernia repair History of permanent cardiac pacemaker placement Family History Father Cancer Mother No problems noted. Social History Household Members: Family Household Members Other:: granddaughter Housing: House Are you a primary respiratory care assistant to a significant other at home: No Do you presently have visiting nurse or other home services: Yes (ass eldercare, meals on wheels, locomotive oiler for cleaning, bathing) Alcohol intake: never Comment: pt rings appropriately Patient Tobacco Use Status: Never used Tobacco e-Cigarette/Vaping Use: Never Used Second Hand Smoke Exposure: No Advance Directives Date on File: 10/08/21 service: No Current occupational status: retired Current occupation: rt handed Office 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 Heart failure parameters are stable [id number] Cardiac Device Interrogation, cardio physiologic monitor Procedure code (CPT) selection complete Assessment & Plan Assessment & Plan (1) Biventricular ICD (implantable cardioverter-defibrillator) in place: Onset Date: ~04/2020 Comment: [employer] Code(s): Z95.810 - Presence of automatic (implantable) cardiac defibrillator Category: Medical Plan: See above Coding Level of Care Code Procedure Only Diagnoses Biventricular ICD (implantable cardioverter-defibrillator) in place Z95.810 CPT Codes Cardiac Device Check - Cardiac Device 15: [id number] Cardiac Device Interrogation, cardio physiologic monitor ([id number])
== END ==
PROVIDERS: PCP Family Medicine; Visit Provider Internal Medicine Cardiovascular Disease
DX: Z45.02 Encounter for adjustment and management of automatic implantable cardiac defibrillator (principal)
CPT/HCPCS: 93297

== ENCOUNTER → 2025-01-29 13:31 | Outpatient (REF) | payer MEDICARE, SELFPAY ==
--- NOTE | 2025-01-29 13:35 | CA_ITS ---
Transthoracic Echocardiogram Patient (Last, First, Middle): Marlin Correa J Gender: Female Date of : 1950 Age: 74 Procedure Date: 01/29/2025 Procedure Type: Transthoracic Echocardiogram Location: OP Height: 154.94 cm Weight: 79.38 kg BSA: 1.78 m2 Heart Rate: 60 bpm BP: 150 / 68 mmHg Nursing Program Coordinator: PATRICK/EDI Referring MD: Marvin Swanson MD Symptoms: I50.22 - Chronic systolic (congestive) heart failure Study Quality: Adequate ECG Rhythm: Sinus Conclusions: - The left ventricular systolic function is normal. The calculated ejection fraction is 59% by biplane method. - Evidence suggests grade II (moderate) diastolic dysfunction. - No obvious valvular pathology seen on this study. - There is a moderate loculated pericardial effusion overlying the left ventricle. Findings Left Ventricle Normal left ventricular cavity size. The left ventricular systolic function is normal. The calculated ejection fraction is 59% by biplane method. Evidence suggests grade II (moderate) diastolic dysfunction. There is mild septal asymmetric hypertrophy. Possible basal inferior akinesis. Right Ventricle Normal right ventricular cavity size. There is normal right ventricular systolic function. There is an ICD wire seen in the right ventricle. Atria The left atrium is mildly dilated. The right atrium is normal in size. Aortic Valve There is a normal trileaflet aortic valve. There is mild calcification of the aortic valve. There is no aortic valve stenosis. There is no aortic valve regurgitation. Mitral Valve There is mild anterior mitral leaflet thickening. There is mild mitral valve regurgitation. There is no mitral valve stenosis. Pulmonic Valve The pulmonic valve is likely normal. Tricuspid Valve There is trace tricuspid valve regurgitation. Tricuspid regurgitation envelope is inadequate for calculation of right ventricular systolic pressure. Great Vessels The asc aorta is normal in size. Small plaque is seen in the sino tubular ridge. Venous The inferior vena cava is normal in size and collapses greater than 50% with inspiration. Pericardium/Pleural There is a moderate loculated pericardial effusion overlying the left ventricle. Prior Study Comparison No significant change compared to prior study dated: 01/27/2024. Recommendations, Care & Conclusions No obvious valvular pathology seen on this study. Measurements 2D Linear Measurements IVSd: 1.09 0.6-0.9/0.6-1.0 cm LVIDd: 4.34 3.9-5.3/4.2-5.9 cm LVIDd Index: 2.44 2.4-3.2/2.2-3.1 cm/m2 LVIDs: 3.16 2.0-3.6 cm LVPWd: 0.86 0.7-1.1 cm LA Diam: 4.20 2.7-3.8/3.0-4.0 cm LAIDs Index: 2.36 1.5-2.3 cm/m2 LV Mass: 173.43 67-162/88-224 g LV Mass Index: 97.43 43-95/49-115 g/m2 LVOT Diam: 2.10 3.0+(-)1.3 cm 2D Systolic Function EF 4C: 55.20 >55% EF 2C: 64.30 >55% EF BiP: 58.70 >55% Mitral Valve MV Pk E: 1.08 MV PK A: 0.96 MV Decel Time: 233.00 E/A: 1.10 E'Lateral: 5.77 E'Medial: 5.55 E/E' Med: 19.50 E/E' Lat: 18.70 PHT: 68.00 MVA PHT: 3.24 Decel [place]: 4.61 Aortic Valve AoV Pk Kyrie: 1.80 AoV Mn Kyrie: 1.21 AoV VTI: 0.43 AoV Pk Grad: 13.00 Aov Mn Grad: 7.00 RADHA Cont.VTI: 1.99 LVOT LVOT Pk Kyrie: 0.94 LVOT Mn Kyrie: 0.68 LVOT VTI: 0.25 LVOT Pk Grad: 4.00 LVOT Mn Grad: 2.00 LVOT Diam: 2.10 LVOT Area: 3.46 Diastolic Function MV Pk E: 1.08 MV Pk A: 0.96 E/A: 1.10 E'Medial: 5.55 E/E' Med: 19.50 E' Laterial: 5.77 E/E' Lat: 18.70 Right Ventricle TAPSE (mm): 17.50 TVS' Kyrie: 12.80 Tricuspid Valve RA Press: 3.00 Great Vessels Aorta Sinus of Valsalva: 2.70 2.0-3.5 cm Ao Asc: 3.50 2.1-3.4 cm Pulmonary Veins Pulm Vein S/D 1.10 Pulmonary Valve PV Pk Kyrie: 0.62 Peak PV Grad: 2.00 Updated in Other Vendor System with Status of Final Tommie Gillespie MD electronically signed on 01/31/2025 12:09:02 PM with status of Final
--- OUTSIDE RECORDS SUMMARY | 2025-01-29 16:00 | XMS_ITS ---
Author Organization [facility] on Care Team Providers Care Manager Oracle Name Role Phone Ros Cerda Unavailable Unavailable Bret Grimm Unavailable Unavailable Darek Lundy Unavailable Unavailable Allergies and adverse reactions Code CodeSystem Substance Reaction Severity StartDate Concern Status 421404939 SNOMED CT Sulfa Antibiotics Unknown 08/17/2023 active 8785 RXNORM Propoxyphene Unknown 08/17/2023 active Levaquin Unknown 08/17/2023 active Care Team Name Role Address Phone Organization Dates Darek Lundy PCP [address] [place] [address], [id number], [place] (Office): : [facility] 08/17/2023 - 08/18/2023 Ros Cerda Attending Physician [address] [place] [address], [phone], [place] (Office): [facility] 08/17/2023 - 08/18/2023 Bret Grimm Attending Physician [address] [place] [address], [phone], [place] (Office): [facility] 08/17/2023 - 08/18/2023 Goals Section Description Status Target Date Minimize risk for falls Active 11/16/19 Minimize risk for injury related to falls Active 11/16/2023 Resident will not exhibit s/ sx of COVD-19 through next care plan review Active 11/16/2023 Skin will remain free of fanny akdown within limits of disease process Active 11/16/2023 Skin will remain in tact, fr ee from erythema, breakdown, excoriation or bruising until next review Active 11/16/2023 Will be clean, dressed and w ell groomed daily to promote dignity and psychosocial well-being Active 11/16/2023 Will decrease/minimize skin breakdown risks Acti ve 11/16/2023 Will express that pain management is within acce ptable limits Active 11/16/2023 Will have a bowel movement at least every three days Active 11/16/2023 Will have medication dose reduction/elimination as indicated Active 11/16/2023 Will have no complications related to constipati on Active 11/16/2023 Will maintain existing ADL self performance Acti ve 11/16/2023 Will not develop complications related to decrea sed mobility Active 11/16/2023 Will receive assistance necessary to meet ADL ne eds Active 11/16/2023 Will reduce episodes of util ization of breakthrough pain medication Active 11/16/2023 Will show improvement in mood/behavior Active 11/16/2023 Will show no side effects of medication use Acti ve 11/16/2023 Will show no signs of hallucinations or delusion al thinking Active 11/16/2023 Immunizations Immunization Status Vaccine Details Vaccine Code CodeSystem Date Notes Influenza completed Influenza, split virus, trivalent, injectable, contains preservative 141 CVX created date: 08/18/2023 administer ed date: 08/02/2023 Verified in MIIS. Pneumococcal Polysaccharide Vaccine (PPSV23) completed pneumococcal polysaccharide vaccine, 23 valent 33 CVX created date: 08/18/2023 administer ed date: 10/06/2022 Verified in MIIS. SARS-COV-2 (COVID-19) completed SARS-COV-2 (COVID-19) vaccine, mRNA, spike protein, LNP, preservative free, 30 mcg/0.3mL dose Mfg: pfizer Step 2 of Multi-step with next step required 208 CVX created date: 08/18/2023 administer ed date: 08/18/2021 Verified in ALIS. SARS-COV-2 (COVID-19) completed SARS-COV-2 (COVID-19) vaccine, mRNA, spike protein, LNP, preservative free, 30 mcg/0.3mL dose Mfg: pfizer Step 1 of Multi-step with next step required 208 CVX created date: 08/18/2023 administer ed date: 06/25/2021 Verified in MIIS. SARS-COV-2 (COVID-19 BOOSTER) completed SARS-COV-2 (COVID-19) vaccine, mRNA, spike protein, LNP, bivalent, preservative free, 30 mcg/0.3 mL dose, andrew-sucrose formulation Mfg: mNectar Bilvalent Booster 300 CVX created date: 08/18/2023 administer ed date: 11/18/2022 Verified in MIIS. Mental Status Section Date Assessment Total Score Description 08/18/2023 BIMS 15 cognitively int act CAM 0 No delirium ind icated Problems Problem # Description Date of onset Resolved Date Code CodeSystem Concern Status 1 ANXIETY DISORDER, UNSPECIFIED 08/17/[address] active 2 CARDIOMYOPATHY, UNSPECIFIED 08/17/[address] active 3 ESSENTIAL (PRIMARY) HYPERTENSION 08/17/[address] active 4 FIBROMYALGIA 08/17/20232029198744336 SNOMED CT acti ve 5 INFLAMMATORY LIVER DISEASE, UNSPECIFIED 08/17/[address] active 6 SEPSIS, UNSPECIFIED ORGANISM 08/17/[address] active 7 TYPE 2 DIABETES MELLITUS WITHOUT COMPLICATIONS 08/17/[address] active 8 UNSPECIFIED ATRIAL FIBRILLATION 08/17/[address] active 9 UNSPECIFIED FRACTURE OF LEFT PUBIS, SUBSEQUENT ENCOUNTER FOR FRACTURE WITH ROUTINE HEALING 08/17/[address] active Reason for Referral No Reasons for Referral Entered Social History Social History Observation Description Start Date End Date Code Code System Current Smoking Status Tobacco smoking consumption unknown 886118779 SNOMED CT Sex Assigned At Female 1950 [address]24-0 [facility] Vital Signs Code Code System Vitals Name Values and Units Timing Information 98796-3 LOINC Pain Level Value=7.0 08/18/2023 8462-4 LOINC Blood Pressure-Diastolic Value=89 Un its=mmHg 08/18/2023 8480-6 LOINC Blood Pressure-Systolic Gedef=819 Un its=mmHg 08/18/2023 08330-4 LOINC O2 % BldC Oximetry Value=97.0 Units= % 08/18/2023 8310-5 LOINC Body Temperature Value=97.2 Units=?? F 08/18/2023 8867-4 LOINC Heart rate Value=65.0 Units=/min 57230-5 LOINC Weight Rwmis=704.0 Units=Lbs 8302-2 LOINC Height Value=62.0 Units=Inches 08/17/2023 9279-1 LOINC Respiratory Rate Value=18.0 Units=/m in 08/17/2023
--- OUTSIDE RECORDS SUMMARY | 2025-01-29 16:00 | XMS_ITS ---
Author Organization [facility] Jeanie conner [place] Address [address] [place] [address] Care Team Providers Care Refrigerator Repairman Name Role Phone Baljinder Blanchard Primary Care Provider Barbara Herzog Unavailable [phone] Encounters Encounter Location Date Provider Diagnosis [address] [address] 12/12/2024 Barbara Cheung Plan Of Treatment Next Appt Details Provider Name:Barbara plata, 03/06/2025 01:00:00 PM, [address] [place], [address], Progress Notes * Marlin CORREADOB:1950 (74 yo F)Acc No.[id number]:12/12/2024 Progress Note Patient:?Marlin CORREA Provider:?Barbara Cheung DPM :1950???Age:74 Y???Sex:Female D ate:12/12/2024 Address:[address] [place] [address] [place] Pcp:Baljinder Blanchard Subjective: * Chief Complaints: * ??? * Medical History:? Objective: * Vitals:? Assessment: Plan: * Treatment: * Images: * The named appointment provid er may or may not be the originator of this progress note, and it is not deemed complete until electronically signed by the appointment provider. Sign off status: Pending * Provider:?Barbara Cheung DPM Date:?0 12/12/2024 Generated for Maia king/Maria C/Vidya on:?01/29/2025 03:59 PM EDT
--- OUTSIDE RECORDS SUMMARY | 2025-01-29 16:00 | XMS_ITS ---
Author Organization [facility] Care Team Providers Care Spinning And Winding Supervisor Name Role Phone Eleonora Ruth Unavailable Unavailable Danae Boyle Unavailable Unavailable Stacy De León Unavailable Unavailable Evelia Rodriguez Unavailable Unavailable Allergies and adverse reactions Code CodeSystem Substance Reaction Severity StartDate Concern Status 8785 RXNORM Propoxyphene Unknown 11/27/2019 active 17492 RXNORM levofloxacin Unknown 11/27/2019 active Care Team Name Role Address Phone Organization Dates Eleonora Ruth PCP [address] [place] [address], [facility] (Office): : [facility] 11/27/2019 - 12/10/2019 Danae Boyle Attending Physician [address] [place] [address], [phone], [facility] (Office): : [facility] 11/27/2019 - 12/10/2019 Stacy De León Attending Physician [address] [place] [address], [facility], [facility] (Office): : [facility] 11/27/2019 - 12/10/2019 Evelia Rodriguez Attending Physician [address] [place], [place] [address], [place], [address], [place] (Office): : [facility] 11/27/2019 - 12/10/2019 Mental Status Section Date Assessment Total Score Description 12/10/2019 BIMS 15 cognitively int act CAM 0 No delirium ind icated PHQ-9 00 12/04/2019 BIMS 15 cognitively int act CAM 0 No delirium ind icated PHQ-9 00 Problems Problem # Description Date of onset Resolved Date Code CodeSystem Concern Status 1 CARDIOMYOPATHY IN DISEASES CLASSIFIED ELSEWHERE 11/27/[address] active 2 GASTRO-ESOPHAGEAL REFLUX DISEASE WITHOUT ESOPHAGITIS 11/27/[address] active 3 HYPERTENSIVE HEART DISEASE WITH HEART FAILURE 11/27/[address] active 4 HYPO-OSMOLALITY AND HYPONATREMIA 11/27/[address] active 5 HYPOKALEMIA 11/27/[address] active 6 LOBAR PNEUMONIA, UNSPECIFIED ORGANISM 11/27/[address] active 7 MUSCLE WEAKNESS (GENERALIZED) 11/27/[address] active 8 PAROXYSMAL ATRIAL FIBRILLATION 11/27/[address] active 9 RESTLESS LEGS SYNDROME 11/27/[address] active 10 SEPSIS DUE TO STREPTOCOCCUS PNEUMONIAE 11/27/[address] active 11 UNSPECIFIED COMBINED SYSTOLIC (CONGESTIVE) AND DIASTOLIC (CONGESTIVE) HEART FAILURE 11/27/[address] active Reason for Referral No Reasons for Referral Entered Social History Social History Observation Description Start Date End Date Code Code System Current Smoking Status Tobacco smoking consumption unknown 480373365 SNOMED CT Sex Assigned At Female 1950 50661-6 ELIZA
--- OUTSIDE RECORDS SUMMARY | 2025-01-29 16:00 | XMS_ITS ---
Author Organization [facility] Address [address] [place] [address] Care Team Providers Care Precision Layout Worker Name Role Phone Baljinder Blanchard Primary Care Provider Barbara Herzog Unavailable [phone] Dunia Ceja [phone] Izaguirre Encounters Encounter Location Date Provider Diagnosis [facility] [address] [place] [address] 09/25/2024 Dunia Ceja Plan Of Treatment Next Appt Details Provider Name:Barbara plata, 03/06/2025 01:00:00 PM, [address] [place], [address], Progress Notes * Marlin CORREADOB:1950 (74 yo F)Acc No.[id number]:09/25/2024 Progress Note Patient:?Marlin CORREA Provider:?Dunia Ceja DPM :1950???Age:74 Y???Sex:Female D ate:09/25/2024 Address: [place] Pcp:Baljinder Blanchard Subjective: * Chief Complaints: * ???1. Dr Izaguirre. * Medical History:? Objective: * Vitals:? Assessment: Plan: * Treatment: * Images: * The named appointment provid er may or may not be the originator of this progress note, and it is not deemed complete until electronically signed by the appointment provider. Sign off status: Pending * Provider:?Dunia Ceja DPM Date:? Generated for Maia king/Maria C/Vidya on:?01/29/2025 04:00 PM EDT
--- OUTSIDE RECORDS SUMMARY | 2025-01-29 16:00 | XMS_ITS | Patient Health Record ---
[facility] [place] Address [address] [place] [address] Care Team Providers Care Student Support Services Director Name Role Phone Baljinder Blanchard Primary Care Provider UnavailBarbara Santo Unavailable [phone] Nilo Kenny Unavailable [phone] Dunia Ceja Unavailable [phone] Allergies Allergen (clinical drug ingredient) Drug/Non Drug Allergy documented on EMR Reaction Allergy Type Onset Date Status sulfamethoxazole / trimethoprim Bactrim upset stomach Drug Allergy Active Darvocet A500 rash Drug Allergy Act laura Levaquin rash Drug Allergy Active Reason For Referral No Information Medications Medication SIG (Take, Route, Frequency, Duration) Notes Start Date End Date Status Omeprazole 20 MG TAKE 1 CAPSULE BY [facility] EVERY DAY Oral for 90 Days Active Multivitamin 12/28/2023 Active Zofran PRN 12/28/2023 Active Lomotil 2.5-0.025 MG 1 tablet as needed Orally 12/28/2023 Active Furosemide 20 MG 1 tablet Orally Once a day Active Clopidogrel Bisulfate 75 MG 1 tablet Ora lly Once a day Unknown Levothyroxine Sodium 75 MCG Oral for 90 Days Active Centrum Silver 12/28/2023 Acti ve Valsartan 80 MG 1 tablet Orally Once a day Active Aspirin 81 MG 1 tablet Orally Once a day Active Atorvastatin Calcium 20 MG 1 tablet Oral ly Once a day Active Claritin 10 MG 1 tablet Orally Once a day Active Albuterol Sulfate HFA 108 (90 Base) MCG/ACT 1 puff as needed Inhalation every 4 hrs Active traMADol HCl 50 MG 1 tablet as needed Orally Once a day Active Amiodarone HCl 200 MG 1 tablet Orally On ce a day Active Vitamin D3 Active Fosamax 70 MG 1 tablet 30 minutes before the first food, beverage or medicine of the day with plain water Orally Unknown clonazePAM 2 MG 1 tablet Orally Once a day Active Diphenoxylate-Atropine 2.5-0.025 MG 1 tablet as needed Orally Four times a day Unknown Alendronate Sodium 70 MG 1 tablet 30 min utes before the first food, beverage or medicine of the day with plain water Orally Active Carvedilol 12.5 MG 1 tablet with food Orally Twice a day Active Social History Tobacco Use: Social History Observation Description Date Details (start date - stop date) Never Smoker NA - NA Tobacco Use/Smoking Question Answer Notes Are you a: nonsmoker Additional Findings: Tobacco Non-User Current no n-smoker Alcohol Screen Question Answer Notes Did you have a drink containing alcohol in the p ast year? No Points 0 Interpretation Negative Tobacco use other than smoking: Question Answer Notes Are you an other tobacco user? No Problems Problem Type SNOMED Code ICD Code Onset Dates Problem Status W/U Status Risk Notes Problem Acquired hammer toe of right foot (61212964825 90939) Other hammer toe(s) (acquired), right foot (M20.41) Active confirmed Problem Acquired hammer toe of left foot (30359477705 09460) Other hammer toe(s) (acquired), left foot (M20.42) Active confirmed Problem Atherosclerosis of [place]utiiq artery of both lower extremities, with unspecified presence of clinical manifestation (I70.203) Active confirmed Q7(A), Q8(2B), Q9(1B,2C ) Vital Signs Height 5ft2in in 09/24/2024 Weight 177 lbs 09/24/2024 BMI 32.37 kg/m2 09/24/2024 Procedures Procedure Date Ordered Date Performed Result Body Sit e 57005-RAFMPJQ NAIL, 6 OR MORE 09/24/2024 N/A 35555-IITO SKIN LESIONS, 2 TO 4 09/24/2024 N/A Encounters Encounter Location Date Provider Diagnosis [facility] [address] [place] [address] 07/17/2024 Dunia Ceja Atherosclerosis of alutiiq artery of both lower extremities, with unspecified presence of clinical manifestation I70.203 ; Tinea unguium B35.1 ; Pain in right toe(s) M79.674 ; Pain in left toe(s) M79.675 ; Other hammer toe(s) (acquired), right foot M20.41 and Other hammer toe(s) (acquired), left foot M20.42 [facility] [address] [address] 09/24/2024 Barbara Cheung Atherosclerosis of alutiiq artery of both lower extremities, with unspecified presence of clinical manifestation I70.203 ; Tinea unguium B35.1 ; Pain in right toe(s) M79.674 and Pain in left toe(s) M79.675 Assessments Encounter Date Diagnosis (ICD Code) Assessment Notes Treatment Notes Treatment Clinical Notes Section Notes 07/17/2024 Atherosclerosis of alutiiq artery of both lower extremities, with unspecified presence of clinical manifestation (ICD-10 - I70.203) Q7(A), Q8(2B), Q9(1B,2C) 09/24/2024 Atherosclerosis of alutiiq artery of both lower extremities, with unspecified presence of clinical manifestation (ICD-10 - I70.203) Q7(A), Q8(2B), Q9(1B,2C) 09/24/2024 Tinea unguium (ICD-10 - B35.1) 07/17/2024 Tinea unguium (ICD-10 - B35.1) 07/17/2024 Pain in right toe(s) (ICD-10 - M79.674) 09/24/2024 Pain in right toe(s) (ICD-10 - M79.674) 09/24/2024 Pain in left toe(s) (ICD-10 - M79.675) 07/17/2024 Pain in left toe(s) (ICD-10 - M79.675) 07/17/2024 Other hammer toe(s) (acquired), right foot (ICD-10 - M20.41) 07/17/2024 Other hammer toe(s) (acquired), left foot (ICD-10 - M20.42) Plan Of Treatment Pending Test Test Name Order Date 54030-FVMFYIW NAIL, 6 OR MORE 09/24/2024 39667-TOCJ SKIN LESIONS, 2 TO 4 09/24/20 24 Next Appt Details Provider Name:Barbara plata, 03/06/2025 01:00:00 PM, [address] [facility], [place], [address], Insurance Providers Payer Name Payer Address Payer Phone Subscriber Number Group Number Insured Name Patient Relationship to Insured Coverage Start Date Coverage End Date Medicare [employer] [address] [place] [address] [id number] Marlin Correa Self - patient is the insured 2 Medical (General) History Medical History History ICD Code Hypertension Hypothyroidism Arthritis asthma Back,Hip,and Knee pain Cancer Diverticulosis Fibromyalgia Heart disease Osteoporosis Measles Mumps Chicken pox Joint implants/screws Transfusions Surgical History Surgery Date(Month/Year) hip replacement Gall bladder removal Belly Button Hernia cardiac pacemeker Right Groin Hernia watchman partial hysterectomy
--- OUTSIDE RECORDS SUMMARY | 2025-01-29 16:00 | XMS_ITS | Patient Health Record ---
Author Organization [facility] Address [address] [place] [address] Care Team Providers Care Information Technology Account Manager Name Role Phone Wing Emerson Primary Care Provider Huber Cobos Jr Unavailable Allergies Allergen (clinical drug ingredient) Drug/Non Drug Allergy documented on EMR Reaction Allergy Type Onset Date Status Substance with sulfonamide structure and antibacterial mechanism of action (substance) Sulfa Antibiotics Unknown Drug Allergy Active Levaquin Unknown Drug Allergy Active Darvocet A500 Unknown Drug Allergy Act laura Reason For Referral No Information Medications Medication [...] TH EVERY DAY Oral for 90 Active Immunizations Vaccine Route Administration Date Status Comme nts Influenza Unknown 07/01/2021 Administered Social History Tobacco Use: Social History Observation Description Date Details (start date - stop date) Never Smoker NA - NA Tobacco Use/Smoking Question Answer Notes Patient is a nonsmoker Alcohol Screen Question Answer Notes Did you have a drink containing alcohol in the p ast year? 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 Problem 83784816 Diarrhea, unspecified type (R19.7) Active confirmed Plan Of Treatment Future Test Test Name Order Date UPPER GI ENDOSCOPY 04/15/2022 COLONOSCOPY 04/15/2022 Insurance Providers Payer Name Payer Address Payer Phone Subscriber Number Group Number Insured Name Patient Relationship to Insured Coverage Start Date Coverage End Date MEDICARE OF [employer] [address] [place] [address] [id number] FIONA CAO Self - patient is the insured Medical (General) History Medical History History ICD Code Uterine cancer, status post chemoradiati on Atrial fibrillation asthma - mild intermittent Cardiomyopathy Hypertension Elevated cholesterol Coronary artery disease Surgical History Surgery Date(Month/Year) hernia repair x2 umbilical Pacemaker defibrillator 2019 hysterectomy/ bladder sling 2020 groin 2 years ago left hip replacement 09/2021
--- OUTSIDE RECORDS SUMMARY | 2025-01-29 16:00 | XMS_ITS ---
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 Medications Medication SIG (Take, Route, Frequency, Duration) Notes Start Date End Date Status Fosamax 70 MG 1 tablet 30 minutes before the first food, beverage or medicine of the day with plain water Orally Unknown Diphenoxylate-Atropine 2.5-0.025 MG 1 tablet as needed Orally Four times a day Unknown Multivitamin 12/28/2023 Active Clopidogrel Bisulfate 75 MG 1 tablet Ora lly Once a day Unknown Centrum Silver 12/28/2023 Acti ve Lomotil 2.5-0.025 MG 1 tablet as needed Orally 12/28/2023 Active Aspirin 81 MG 1 tablet Orally Once a day Active Atorvastatin Calcium 20 MG 1 tablet Oral ly Once a day Active Albuterol Sulfate HFA 108 (90 Base) MCG/ACT 1 puff as needed Inhalation every 4 hrs Active Amiodarone HCl 200 MG 1 tablet Orally On ce a day Active Vitamin D3 Active clonazePAM 2 MG 1 tablet Orally Once a day Active Carvedilol 12.5 MG 1 tablet with food Orally Twice a day Active Furosemide 20 MG 1 tablet Orally Once a day Active Levothyroxine Sodium 75 MCG Oral for 90 Days Active Omeprazole 20 MG TAKE 1 CAPSULE BY [facility] EVERY DAY Oral for 90 Days Active Zofran PRN 12/28/2023 Active Valsartan 80 MG 1 tablet Orally Once a day Active Claritin 10 MG 1 tablet Orally Once a day Active traMADol HCl 50 MG 1 tablet as needed Orally Once a day Active Alendronate Sodium 70 MG 1 tablet 30 min utes before the first food, beverage or medicine of the day with plain water Orally Active Social History Tobacco Use: Social History Observation Description Date Details (start date - stop date) Never Smoker NA - NA Tobacco Use/Smoking Question Answer Notes Are you a: nonsmoker Additional Findings: Tobacco Non-User Current no n-smoker Tobacco use other than smoking: Question Answer Notes Are you an other tobacco user? No Vital Signs Height 5ft2in in 09/24/2024 Weight 177 lbs 09/24/2024 BMI 32.37 kg/m2 09/24/2024 Procedures Procedure Date Ordered Date Performed Result Body Sit e 45297-MYZRMUR NAIL, 6 OR MORE 09/24/2024 N/A 61976-HCLV SKIN LESIONS, 2 TO 4 09/24/2024 N/A Encounters Encounter Location Date Provider Diagnosis [facility] [address] [address] 09/24/2024 Barbara Cheung Atherosclerosis of shoalwater artery of both lower extremities, with unspecified presence of clinical manifestation I70.203 ; Tinea unguium B35.1 ; Pain in right toe(s) M79.674 and Pain in left toe(s) M79.675 Assessments Encounter Date Diagnosis (ICD Code) Assessment Notes Treatment Notes Treatment Clinical Notes Section Notes 09/24/2024 Atherosclerosis of shoalwater artery of both lower extremities, with unspecified presence of clinical manifestation (ICD-10 - I70.203) Q7(A), Q8(2B), Q9(1B,2C) 09/24/2024 Tinea unguium (ICD-10 - B35.1) 09/24/2024 Pain in right toe(s) (ICD-10 - M79.674) 09/24/2024 Pain in left toe(s) (ICD-10 - M79.675) Plan Of Treatment Pending Test Test Name Order Date [id number]-DQNYYZZ NAIL, 6 OR MORE 09/24/2024 45681-SUSG SKIN LESIONS, 2 TO 4 09/24/20 24 Next Appt Details Follow Up: 3 Months, Reason: Provider Name:Barbara Lamberto plata, 03/06/2025 01:00:00 PM, [address] [place], [address], Procedure Notes * Category Sub-Category Detail Notes Debride Nail 6-10 Nail debridement Performance o f this nail treatment by a nonprofessional would put this patients foot and overall health at risk. Therefore, debridement to affected nail(s), as described in exam, was performed extensively to reduce/remove overall nail length, girth, thickness, subungual debris, and necrotic tissue, by manual and/or electrical means through the use of a nail nipper and/or dremel-type roll grinder operator, to a more viable healthy nail plate or bed tissue 6-10 nails in total. Silver nitrate was used for any petechial bleeding as necessary. Definitive antifungal treatment options, both pharmaceutical and surgical, have been reviewed and discussed with the patient. The patient solely prefers the use of intermittent/as needed professional debridement services for their nail condition and understands the need for additional periodic treatments to maintain effectiveness in symptomatic relief - 21610 Keratoma Treatment Parring or Cutting o f Benign Hyperkeratotic Lesion(s) Q8, (-56) 2-4 Lesions - The Benign hyperkeratotic lesions, ( 2) in total, locations as stated and described in exam, were pared, and/or cut utilizing a sterile 15 blade, tissue nippers, and/or power dremel instrumentation - 64658 Progress Notes * Marlin CORREADOB:1950 (74 yo F)Acc No.[id number]:09/24/2024 Progress Note Patient:?SUNNY Marlin Donato Provider:?Barbara Cheung DPM :1950???Age:74 Y???Sex:Female D ate:09/24/2024 [address] [place] Pcp:Baljinder Blanchard Subjective: * Chief Complaints: * ???Pcp-09/17/24At Risk Footc arePainful Nail(s) aggravated by shoes and causing difficulty standing/walking. * HPI: ???At Risk footcare:?Pt States Last PCP Visit:?Date?09/17/2024 * ROS:?General/Constitutional:?Nausea?denies.?Vomiting?denies.?Hunger Thirst?denies.?Loss appetite?denies.?Chills?denies.?Fatigue?denies.?Fever?denies.?Night Sweats?denies.?Unexplained weight loss?denies.?Unexplained weight gain?denies.?HEENTM:?Dentures?admits.?Dizziness?denies.?Glasses/contacts?admits.?Retinopathy?de nies.?Blurred/double vision?denies.?TMJ?denies.?Discharge/drainage?denies.?Implants?denies.?Sore throat?denies.?Dental implants?denies.?Hard of hearing ?denies.?Difficulty chewing/swallowing/speaking?denies.?Nose bleeds?denies.?Sore mouth?denies.?Respiratory:?On Oxygen?denies.?Pneumonia/pleurisy?denies.?Bronchitis?denies.?Emphysema?denies.?C oughing?denies.?Cough blood?denies.?Shortness of breath?denies.?Wheezing?denies.?Cardiovascular:?Pacemaker?admits.?MVP?denies.?WPW?denies.?CHF?denies.?Heart attack?denies.?Septal defect?denies.?Rapid beat?denies.?Chest pain ?denies.?Atrial Fib.?admits.?Murmur/Palpitations?denies.?Gastrointestinal:?Hemorrhoids?denies.?Stomach/Abdominal pain?denies.?Dark blood stool?denies.?Irritable bowel ?denies.?Constipation?denies.?Diarrhea?denies.?Hematology:?Swelling?denies.?Clots?denies.?Varicose Veins?denies.?Bruising?denies.?Bleeding problem?denies.?Genitourinary:?Blood urine?denies.?Frequent/Painfu/urination/bladder control?denies.?Kidney stones?denies.?Infection (UTI)?denies.?Nephropathy?denies.?sex trans dis (STD)?denies.?Prostate?denies.?Musculoskeletal:?Hammertoes?admits.?Bunions?denies.?Back Pain?denies.?Muscle Cramps/ Resting?denies.?Muscle cramps / walking?denies.?Generalized aches and pains?denies.?Weakness?denies.?Integ.:?More?denies.?Scars?denies.?Corns/calluses?denies.?Ingrown nails?admits.?Painful nails?denies.?Open Sores?denies.?Rashes?denies.?Neurologic:?Difficulty sleeping?denies.?Brain disorder?denies.?Numbness?denies.?Balance trouble?denies.?Confusion?denies.?Fainting/blackouts?denies.?Tingling?denies.?Tr emors?denies.? * Medical History:? * Surgical History:?hip replac ement Gall bladder removal Belly Button Hernia cardiac pacemeker Right Groin Hernia watchman partial hysterectomy * Hospitalization/Major Diagno stic Procedure:?Denies Past Hospitalization * Family History:?Mother: dece ased, diagnosed with Diabetic - NIDDM, Unspecified heart disease, Family history of arthritis.?Father: , diagnosed with Other malignant neoplasm of unspecified site.? * Social History:?Tobacco Use:?Tobacco Use/Smoking?Are you a:?nonsmoker ?Additional Findings: Tobacco Non-User?Current non-smoker ?Tobacco use other than smoking?Are you an other tobacco user??No * Medications:?TakingAlendrona te Sodium 70 MG Tablet 1 tablet 30 minutes before the first food, beverage or medicine of the day with plain water Orally Valsartan 80 MG Tablet 1 tablet Orally Once a day traMADol HCl 50 MG Tablet 1 tablet as needed Orally Once a day Claritin 10 MG Tablet 1 tablet Orally Once a day Zofran , Notes to Pharmacist: PRNOmeprazole 20 MG Capsule Delayed Release TAKE 1 CAPSULE BY MOUTH EVERY DAY Oral Levothyroxine Sodium 75 MCG Tablet Oral Furosemide 20 MG Tablet 1 tablet Orally Once a day clonazePAM 2 MG Tablet 1 tablet Orally Once a day Vitamin D3 Carvedilol 12.5 MG Tablet 1 tablet with food Orally Twice a day Atorvastatin Calcium 20 MG Tablet 1 tablet Orally Once a day Aspirin 81 MG Tablet Chewable 1 tablet Orally Once a day Amiodarone HCl 200 MG Tablet 1 tablet Orally Once a day Albuterol Sulfate HFA 108 (90 Base) MCG/ACT Aerosol Solution 1 puff as needed Inhalation every 4 hrs Lomotil 2.5-0.025 MG Tablet 1 tablet as needed Orally Multivitamin Centrum Silver Taking Alendronate Sodium 70 MG Tablet 1 tablet 30 minutes before the first food, beverage or medicine of the day with plain water Orally Taking Valsartan 80 MG Tablet 1 tablet Orally Once a day Taking traMADol HCl 50 MG Tablet 1 tablet as needed Orally Once a day Taking Claritin 10 MG Tablet 1 tablet Orally Once a day Taking Zofran , Notes to Pharmacist: PRNTaking Omeprazole 20 MG Capsule Delayed Release TAKE 1 CAPSULE BY MOUTH EVERY DAY Oral Taking Levothyroxine Sodium 75 MCG Tablet Oral Taking Furosemide 20 MG Tablet 1 tablet Orally Once a day Taking clonazePAM 2 MG Tablet 1 tablet Orally Once a day Taking Vitamin D3 Taking Carvedilol 12.5 MG Tablet 1 tablet with food Orally Twice a day Taking Atorvastatin Calcium 20 MG Tablet 1 tablet Orally Once a day Taking Aspirin 81 MG Tablet Chewable 1 tablet Orally Once a day Taking Amiodarone HCl 200 MG Tablet 1 tablet Orally Once a day Taking Albuterol Sulfate HFA 108 (90 Base) MCG/ACT Aerosol Solution 1 puff as needed Inhalation every 4 hrs Taking Lomotil 2.5-0.025 MG Tablet 1 tablet as needed Orally Taking Multivitamin Taking Centrum Silver UnknownClopidogrel Bisulfate 75 MG Tablet 1 tablet Orally Once a day Diphenoxylate-Atropine 2.5-0.025 MG Tablet 1 tablet as needed Orally Four times a day Fosamax 70 MG Tablet 1 tablet 30 minutes before the first food, beverage or medicine of the day with plain water Orally Medication List reviewed and reconciled with the patientUnknown Clopidogrel Bisulfate 75 MG Tablet 1 tablet Orally Once a day Unknown Diphenoxylate-Atropine 2.5-0.025 MG Tablet 1 tablet as needed Orally Four times a day Unknown Fosamax 70 MG Tablet 1 tablet 30 minutes before the first food, beverage or medicine of the day with plain water Orally Medication List reviewed and reconciled with the patient * Allergies:?Bactrim: upset st omachDarvocet A500: rashLevaquin: rashyes[Allergies Verified] Objective: * Vitals:?Ht: 5ft2in, Wt:177, BMI:32.37, Shoe size: 10, Ht-cm: 157.48 cm, Wt-k.29 kg. * Examination: ???Vascular: ?DP PULSES(B):?1/4, B/L.?PT PULSES(B):? 0/4, B/L.?CAPILLARY FILL TIME:? delayed, all digits, B/L.?TROPHIC CONDITION-TEXTURE/ELASTICITY/TURGOR/HAIR GROWTH(B):? decreased, fragile, thin, shiny skin, with sparse to absent hair growth, B/L.?TEMPERTURE GRADIENT(C):? decreased, cool to cool, proximal to distal, B/L.?PIGMENTATION:?mottled, B/L.?EDEMA(C):?1/4, pitting, without aching pain, Leg(s), Ankle(s).?CLAUDICATION(C):?denies, B/L.?REST PAIN:?denies, B/L.?PARESTHESIA(C):?absent, B/L.?BURNING(C):?absent, B/L.?Nails: ?NAILS are:?Elongated, overgrown, dystrophic, lytic, greater than 3mm thick, discolored and friable with crumbly malodorous subungual debris, with pain on palpation, 1-5 B/L.?Dermatologic: ?SKIN FINDINGS:?Skin exam reveals Keratotic lesion(s) located sub 5th metatarsal head, B/L.?Orthopedic: ?MUSCLE STRENGTH:?5/5 all groups in a symmetrical fashion, B/L.?Neurological: ?SENSORY:?Neurological exam reveals intact sensorium, pain sensation normal, vibration sensation intact, pinprick sensation is normal in the lower extremities, Pt denies, anesthesia, burning, paresthesia, tingling, B/L.?General Examination: ?GENERAL APPEARANCE:?Reveals a pleasant, alert, well nourished, well- developed, well hydrated individual, who demonstrates proper attention to hygiene/body habitus, and is in no acute distress, Pt serves as own historian for office visit today.?ORIENTED:?person, place, and time.? Assessment: * Assessment: 1.?Atherosclerosis of shoalwater artery of both lower extremities, with unspecified presence of clinical manifestation - I70.203 (Primary)???Notes :Q7(A), Q8(2B), Q9(1B,2C)???2.?Tinea unguium - B35.1???3.?Pain in right toe(s) - M79.674???4.?Pain in left toe(s) - M79.675??? Plan: * Treatment: 2.?Tinea unguium?Procedure: 18640-ISSBXVS NAIL, 6 OR MORE * Procedures:?Debride Nail 6-10:?Nail debridement?Performance of this nail treatment by a nonprofessional would put this patients foot and overall health at risk. Therefore, debridement to affected nail(s), as described in exam, was performed extensively to reduce/remove overall nail length, girth, thickness, subungual debris, and necrotic tissue, by manual and/or electrical means through the use of a nail nipper and/or dremel-type roll grinder operator, to a more viable healthy nail plate or bed tissue 6-10 nails in total. Silver nitrate was used for any petechial bleeding as necessary. Definitive antifungal treatment options, both pharmaceutical and surgical, have been reviewed and discussed with the patient. The patient solely prefers the use of intermittent/as needed professional debridement services for their nail condition and understands the need for additional periodic treatments to maintain effectiveness in symptomatic relief - 39700.?Keratoma Treatment:?Parring or Cutting of Benign Hyperkeratotic Lesion(s)?Q8, (-56) 2-4 Lesions - The Benign hyperkeratotic lesions, ( 2) in total, locations as stated and described in exam, were pared, and/or cut utilizing a sterile 15 blade, tissue nippers, and/or power dremel instrumentation - 16594.? * Procedure Codes:?44591 DEBRI DE NAIL, 6 OR MORE, Modifiers: XS 68472 TRIM SKIN LESIONS, 2 TO 4, Modifiers: XS , Q8 * Follow Up:?3 Months * Images: * Sign off status: Completed true * Provider:?Barbara Cheung DPM Date:?11/24/2023 Generated for Maia king/Maria C/eTflaviasmitting on:?01/29/2025 03:59 PM EDT History and Physical Notes * HPI (History of Present Illness) Category Sub-Category Detail Notes Category Not es At Risk footcare Pt States Last PCP Visit: Date: 4 Examination Category Sub-Category Detail Notes Category Not es Neurological SENSORY: Neurological exa m reveals intact sensorium, pain sensation normal, vibration sensation intact, pinprick sensation is normal in the lower extremities, Pt denies, anesthesia, burning, paresthesia, tingling, B/L Dermatologic SKIN FINDINGS: Skin exam reveal s Keratotic lesion(s) located sub 5th metatarsal head, B/L Orthopedic MUSCLE STRENGTH: 5/5 all groups in a symmetrical fashion, B/L General Examination GENERAL APPEARANCE: Reveals a pleasant, alert, well nourished, well-developed, well hydrated individual, who demonstrates proper attention to hygiene/body habitus, and is in no acute distress, Pt serves as own historian for office visit today ORIENTED: person, place, and t grady Vascular DP PULSES (B): 1/4, B/L PT PULSES (B): 0/4, B/L CAPILLARY FILL TIME: delayed, all digits , B/L TEMPERTURE GRADIENT (C): decreased, cool to cool, proximal to distal, B/L TROPHIC CONDITION-TEXTURE/ELASTICITY/TURGOR/HAIR GROWTH (B): decreased, fragile, thin, shiny skin, wi th sparse to absent hair growth, B/L EDEMA (C): 1/4, pitting, withou t aching pain, Leg(s), Ankle(s) CLAUDICATION (C): denies, B/L REST PAIN: denies, B/L PIGMENTATION: mottled, B/L PARESTHESIA (C): absent, B/L BURNING (C): absent, B/L Nails NAILS are: Elongated, overg rown, dystrophic, lytic, greater than 3mm thick, discolored and friable with crumbly malodorous subungual debris, with pain on palpation, 1-5 B/L
== END ==
LOC: HO.CARD 13:31
PROVIDERS: PCP Family Medicine; Visit Provider Internal Medicine Cardiovascular Disease
DX: I50.22 Chronic systolic (congestive) heart failure (principal)
CPT/HCPCS: 93306

== ENCOUNTER → 2025-01-29 13:35 | Outpatient (BNV) | payer MEDICARE, SELFPAY | PROVIDERS: PCP Family Medicine; Visit Provider Internal Medicine | DX: I50.22 Chronic systolic (congestive) heart failure (principal); I35.8 Other nonrheumatic aortic valve disorders; I34.0 Nonrheumatic mitral (valve) insufficiency; I31.39 Other pericardial effusion (noninflammatory) | CPT/HCPCS: 93306 ==

== ENCOUNTER → 2025-02-06 23:59 | Outpatient (BNV) | payer MEDICARE, SELFPAY ==
--- NOTE | 2025-02-08 13:28 | A.OFFVIS_ITS ---
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 Allergies levofloxacin [From LEVAQUIN] Allergy (Intermediate, Verified 05/22/24 13:29) RASH Darvocet-N 50 Allergy (Mild, Uncoded 05/22/24 13:29) hives Sulfacet-R Allergy (Unknown, Uncoded 05/22/24 13:29) gi PFSH Medical History Hernia, ventral, with obstruction Asthma Degenerative joint disease Arthritis Thyroid disease Hx of transfusion of packed red blood cells Diverticulosis GERD (gastroesophageal reflux disease) Fibromyalgia Elevated liver enzymes Elevated cholesterol Osteoporosis Presence of Watchman left atrial appendage closure device Hx of radiation therapy History of chemotherapy History of uterine cancer Mild intermittent asthma Osteoarthritis of left hip Cardiomyopathy CAD (coronary artery disease) Pre-operative cardiovascular examination HTN (hypertension) Biventricular ICD (implantable cardioverter-defibrillator) in place (~04/2020) Paroxysmal atrial fibrillation LBBB (left bundle branch block) Chronic systolic heart failure Surgical History History of incisional hernia repair (04/11/24) Hx of cholecystectomy Hx of hysterectomy History of total left hip replacement Hx of hernia repair History of permanent cardiac pacemaker placement Family History Father Cancer Mother No problems noted. Social History Household Members: Family Household Members Other:: granddaughter Housing: House Are you a primary eye care professional to a significant other at home: No Do you presently have visiting nurse or other home services: Yes (ass eldercare, meals on wheels, tube coater for cleaning, bathing) Alcohol intake: never Comment: pt rings appropriately Patient Tobacco Use Status: Never used Tobacco e-Cigarette/Vaping Use: Never Used Second Hand Smoke Exposure: No Advance Directives Date on File: 10/08/21 service: No Current occupational status: retired Current occupation: rt handed Office Procedures Cardiac Device Check Cardiac Device Check Details: Remote heart failure report generated 02/06/2025. Heart failure parameters are stable [id number] Cardiac Device Interrogation, cardio physiologic monitor Procedure code (CPT) selection complete Assessment & Plan Assessment & Plan (1) Biventricular ICD (implantable cardioverter-defibrillator) in place: Onset Date: ~04/2020 Comment: [employer] Code(s): Z95.810 - Presence of automatic (implantable) cardiac defibrillator Category: Medical Plan: See above Coding Level of Care Code Procedure Only Diagnoses Biventricular ICD (implantable cardioverter-defibrillator) in place Z95.810 CPT Codes Cardiac Device Check - Cardiac Device 15: [id number]-Sggimh Cardiac Device Interrogation, cardio physiologic monitor ([id number])
== END ==
PROVIDERS: PCP Family Medicine; Visit Provider Internal Medicine Cardiovascular Disease
DX: Z45.02 Encounter for adjustment and management of automatic implantable cardiac defibrillator (principal)
CPT/HCPCS: 93297

== ENCOUNTER 2025-02-11 15:16 | Outpatient (AMB) | payer MEDICARE, SELFPAY ==
[2025-02-11 15:34] VITALS: BP 124/62; PULSE 61; BMI 32.2
--- NOTE | 2025-02-11 15:34 | A.OFFVIS_ITS ---
Vital Signs 02/11/25 15:34 Height 5 ft 2 in Weight 176 lb BMI 32.2 BP 124/62 Blood Pressure Location Lt brachial Position Sitting Pulse 61 Pulse Source Monitor Intake Visit Reasons: metronic Corporate Planner Required: No Allergies levofloxacin [From LEVAQUIN] Allergy (Intermediate, Verified 02/11/25 15:35) RASH Darvocet-N 50 Allergy (Mild, Uncoded 02/11/25 15:35) hives Sulfacet-R Allergy (Unknown, Uncoded 02/11/25 15:35) gi Medication List - Last Reconciled 02/11/25 by Lala Le NP-C alendronate 70 mg PO DELGADO amiodarone 100 mg PO DAILY aspirin (Adult Aspirin Regimen) 81 mg PO DAILY atorvastatin 20 mg PO BEDTIME carvedilol 12.5 mg PO BID cholecalciferol (vitamin D3) (Vitamin D3) 25 mcg PO BID clonazepam 2 mg PO BEDTIME PRN compression socks, medium As directed furosemide 20 mg PO DAILY levothyroxine 75 mcg PO DAILY@0600 loratadine 10 mg PO DAILY multivitamin 1 tab PO DAILY omeprazole 20 mg PO DAILY ondansetron HCl 4 mg PO Q6H PRN sennosides (senna) 17.2 mg PO BEDTIME tramadol 100 mg PO TID valsartan 80 mg PO DAILY zinc oxide 13% 1 appl topical DAILY PRN HPI HPI metronic: Details: Marlin is a 74-year-old female with past medical history of hypertension, obesity, heart failure, paroxysmal atrial fibrillation, Watchman device in place, CAD, cardiomyopathy, Bi V ICD who presents for follow-up. Today she reports that she has not been having any cardiac issues recently. She has been having some right lower quadrant sharp pains and rectal bleeding. She did discuss this with her typing secretary provider and PCP this past week. She is scheduled for a CAT scan next week. She had labs drawn but has not heard the results as o f yet. No chest discomfort at rest or during activity. No concerning shortness of breath, no PND, orthopnea or edema. No heart palpitations, lightheadedness, presyncope, syncope, falls. She ambulates with the use of a willing walker.. She does only light physical activities. She is compliant with her medications. [facility] Medical History Hernia, ventral, with obstruction Asthma Degenerative joint disease Arthritis Thyroid disease Hx of transfusion of packed red blood cells Diverticulosis GERD (gastroesophageal reflux disease) Fibromyalgia Elevated liver enzymes Elevated cholesterol Osteoporosis Presence of Watchman left atrial appendage closure device Hx of radiation therapy History of chemotherapy History of uterine cancer Mild intermittent asthma Osteoarthritis of left hip Cardiomyopathy CAD (coronary artery disease) Pre-operative cardiovascular examination HTN (hypertension) Biventricular ICD (implantable cardioverter-defibrillator) in place (~04/2020) Paroxysmal atrial fibrillation LBBB (left bundle branch block) Chronic systolic heart failure Surgical History History of incisional hernia repair (04/11/24) Hx of cholecystectomy Hx of hysterectomy History of total left hip replacement Hx of hernia repair History of permanent cardiac pacemaker placement Family History Father Cancer Mother No problems noted. Social History Household Members: Family Household Members Other:: granddaughter Housing: House Are you a primary care associate to a significant other at home: No Do you presently have visiting nurse or other home services: Yes ([employer] eldercare, meals on wheels, drug abuse social worker for cleaning, bathing) Alcohol intake: never Comment: pt rings appropriately Patient Tobacco Use Status: Never used Tobacco e-Cigarette/Vaping Use: Never Used Second Hand Smoke Exposure: No Advance Directives Date on File: 10/08/21 service: No Current occupational status: retired Current occupation: rt handed Review of Systems Const All systems reviewed & are unremarkable except as noted in HPI and below Card Denies chest pain, Denies chest pain at rest, Denies chest pain with activity, Denies rapid heart rate, Reports leg edema, Denies dyspnea, Denies dyspnea on exertion and Denies orthopnea Resp Denies dyspnea and Denies dyspnea on exertion GI Reports abdominal pain and Reports hematochezia Denies no additional complaints Musc Details: Uses walker, has leg swelling. Reports abnormal gait Neuro Denies no additional complaints and Reports abnormal gait Physical Exam Vital Signs: Last Vital Signs Pulse 61 02/11/25 15:34 BP 124/62 02/11/25 15:34 BMI result Body Mass Index 32.2 Const General: cooperative, healthy appearing, comfortable and no acute distress Orientation/consciousness: patient oriented x3 Neck Neck: Yes normal visual inspection and Yes no JVD Resp Effort & Inspection: normal respiratory effort Auscultation: clear to auscultation bilaterally, no rales, no rhonchi and no wheezes Cardio Rate: regular rate Rhythm: regular rhythm Heart sounds: S1 normal heart sound present, S2 normal heart sound present, no gallops, no murmurs and no rubs Neuro General: patient oriented x3 Extrem Other: Pitting edema in lower legs bilaterally. General: No calf tenderness Psych Appearance: grossly normal Mental Status: mental status grossly normal Speech and movement: Normal speech and movement present Office Procedures Cardiac Device Check Cardiac Device Check Details: Medtronic Bi V ICD interrogation today shows battery 2.2 years, atrial threshold 0.75 volts at 0.4 milliseconds, RV threshold 1 volt at 0.4 milliseconds, LV threshold 1 volt at 0.4 milliseconds, DDDR mode, low rate 60, no alerts, no therapies, 0% AT and AF total V paced 96.6% 59754-JE Cardiac Device Check, multi lead implantable defibrillator Procedure code (CPT) selection complete EKG Details: Today, read by me, atrial and Bi V paced rhythm, rate 61 74374-Jibliwfplijjeeeul, Complete Assessment & Plan Assessment & Plan (1) Paroxysmal atrial fibrillation: Code(s): I48.0 - Paroxysmal atrial fibrillation Category: Medical Plan: History of paroxysmal atrial fibrillation which is currently suppressed with low-dose amiodarone. She is also on carvedilol for heart rate control. She has a Watchman device in place and takes daily aspirin. No recent reports of heart palpitations. EKG done today shows atrial and ventricular paced rhythm. Device interrogation shows no recent atrial fibrillation. Continue current treatment. Recommend by annual renal function test. Will order labs as part of amiodarone monitoring, liver profile and TSH. Will update chest x-ray. Cardiology follow- up 6 months, sooner if needed. (2) Presence of Watchman left atrial appendage closure device: Code(s): Z95.818 - Presence of other cardiac implants and grafts Category: Medical Plan: As above (3) Heart failure with preserved ejection fraction: Code(s): I50.30 - Unspecified diastolic (congestive) heart failure Category: Medical Plan: Echo done 01/29/2025 shows EF 59%, grade 2 diastolic dysfunction, no valve abnormalities. Prior cardiomyopathy and she is on carvedilol and valsartan for neurohormonal modulation. She does have some leg edema on examination, no other signs indicating fluid overload. She is on Lasix 20 mg daily and recently incre ased it up to 40 mg daily. She had lab work done at [facility] this past week. Will reach out and obtain those results. Reviewed low-salt diet, trying to limit fluid to 48 oz daily. Signs and symptoms of heart failure reviewed with her. She may need to stay on higher dose Lasix going forward. (4) HTN (hypertension): Code(s): I10 - Essential (primary) hypertension Category: Medical Plan: Blood pressure goal less than 130/80, well controlled at this time. Continue carvedilol, valsartan and Lasix. (5) Biventricular ICD (implantable cardioverter-defibrillator) in place: Onset Date: ~04/2020 Comment: Medtronic Code(s): Z95.810 - Presence of automatic (implantable) cardiac defibrillator Category: Medical Plan: Medtronic Bi V ICD interrogation today. Functioning normally. Remote monitoring in use. Next office interrogation due in 6 months. (6) Rectal bleeding: Code(s): K62.5 - Hemorrhage of anus and rectum Category: Medical Plan: Patient reports some recent abdominal discomfort and rectal bleeding. She did discuss this with her typing secretary provider and PCP within the last week and has had labs done at [facility]. She is scheduled for CAT scan next week. Instructed to seek emergency medical care if her bleeding increases. (7) On amiodarone therapy: Code(s): Z79.899 - Other alf (current) drug therapy Category: Medical Plan: As above Plan Time spent on chart review, documentation, interview and assessment Orders: Orders XR chest 2V Today Z79.899 - Other buttermaker continuous churn (current) drug therapy Liver Panel Today I48.0 - Paroxysmal atrial fibrillation TSH reflex Free T4 Today I48.0 - Paroxysmal atrial fibrillation Coding Level of Care Code Est Pt Level 4 (49190) Complex EM visit Add On G2211 Diagnoses Paroxysmal atrial fibrillation I48.0 Presence of Watchman left atrial appendage closure device Z95.818 Heart failure with preserved ejection fraction I50.30 HTN (hypertension) I10 Biventricular ICD (implantable cardioverter-defibrillator) in place Z95.810 Rectal bleeding K62.5 On amiodarone therapy Z79.899 CPT Codes Cardiac Device Check - Cardiac Device 6: 83010-ME Cardiac Device Check, multi lead implantable defibrillator ([id number]) EKG - CPT: 20405-Nfijisxrpbenswyvb, Complete ([id number]) Time Spent (min) 36
--- OUTSIDE RECORDS SUMMARY | 2025-02-11 17:46 | XMS_ITS | Patient Health Record ---
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
--- OUTSIDE RECORDS SUMMARY | 2025-02-11 17:46 | XMS_ITS ---
Author Organization [facility] [place] Address [address] [facility] [place] [address] Care Team Providers Care Educational Specialist Name Role Phone Baljinder Blanchard Primary Care Provider Barbara Herzog Unavailable [phone] Allergies Allergen (clinical drug ingredient) Drug/Non Drug [...] Omeprazole 20 MG TAKE 1 CAPSULE BY [facility] EVERY DAY Oral for 90 Days Active [...] Ordered Date Performed Result Body Sit e 70936-SDQKHZP NAIL, 6 OR MORE 09/24/2024 N/A 41037-IFWG SKIN LESIONS, 2 TO 4 09/24/2024 N/A Encounters Encounter Location Date Provider Diagnosis [facility] [address] [address] 09/24/2024 Barbara Cheung Atherosclerosis of [place] artery of both lower extremities, with unspecified presence of clinical manifestation I70.203 ; Tinea unguium B35.1 ; Pain in right toe(s) M79.674 and Pain in left toe(s) M79.675 Assessments Encounter Date Diagnosis (ICD Code) Assessment Notes Treatment Notes Treatment Clinical Notes Section Notes 09/24/2024 Atherosclerosis of [place] artery of both lower extremities, with unspecified presence of clinical manifestation (ICD-10 - I70.203) Q7(A), Q8(2B), Q9(1B,2C) 09/24/2024 Tinea unguium (ICD-10 - B35.1) 09/24/2024 Pain in right toe(s) (ICD-10 - M79.674) 09/24/2024 Pain in left toe(s) (ICD-10 - M79.675) Plan Of Treatment Pending Test Test Name Order Date 88883-USGYENH NAIL, 6 OR MORE 09/24/2024 16422-UMVP SKIN LESIONS, 2 TO 4 09/24/20 24 Next Appt Details Follow Up: 3 Months, Reason: Provider Name:Barbara Lamberto plata, 03/06/2025 01:00:00 PM, [address] [place], [address], Procedure Notes * Category Sub-Category [...] use of a nail nipper and/or dremel-type crankshaft grinder, to a more viable healthy nail plate [...] to maintain effectiveness in symptomatic relief - 53640 Keratoma Treatment Parring or Cutting o f Benign Hyperkeratotic Lesion(s) Q8, (-56) 2-4 Lesions - The Benign hyperkeratotic lesions, ( 2) in total, locations as stated and described in exam, were pared, and/or cut utilizing a sterile 15 blade, tissue nippers, and/or power dremel instrumentation - 75359 Progress Notes * Marlin CORREADOB:1950 (74 yo F)Acc No.[id number]:09/24/2024 Progress Note Patient:?SUNNY Marlin Donato Provider:?Barbara Cheung DPM :1950???Age:74 Y???Sex:Female D ate:09/24/2024 [address] [place] Pcp:Baljinder Blanchard Subjective: * Chief Complaints: * [...] and time.? Assessment: * Assessment: 1.?Atherosclerosis of [place] artery of both lower extremities, with unspecified presence of clinical manifestation - I70.203 (Primary)???Notes :Q7(A), Q8(2B), Q9(1B,2C)???2.?Tinea unguium - B35.1???3.?Pain in right toe(s) - M79.674???4.?Pain in left toe(s) - M79.675??? Plan: * Treatment: 2.?Tinea unguium?Procedure: 97009-OZXKBFI NAIL, 6 OR MORE * Procedures:?Debride Nail [...] use of a nail nipper and/or dremel-type crankshaft grinder, to a more viable healthy nail plate [...] to maintain effectiveness in symptomatic relief - 96058.?Keratoma Treatment:?Parring or Cutting of Benign Hyperkeratotic Lesion(s)?Q8, (-56) 2-4 Lesions - The Benign hyperkeratotic lesions, ( 2) in total, locations as stated and described in exam, were pared, and/or cut utilizing a sterile 15 blade, tissue nippers, and/or power dremel instrumentation - 75756.? * Procedure Codes:?62722 DEBRI DE NAIL, 6 OR MORE, Modifiers: XS 84114 TRIM SKIN LESIONS, 2 TO 4, Modifiers: XS , Q8 * Follow Up:?3 Months * Images: * Sign off status: Completed true * Provider:?Barbara Cheung DPM Date:?11/24/2023 Generated for Maia king/Maria C/eTflaviasmitting on:?02/11/2025 05:46 PM EDT History and Physical Notes * [...]
--- OUTSIDE RECORDS SUMMARY | 2025-02-11 17:47 | XMS_ITS ---
Author Organization [facility] Jeanie conner [place] Address [address] [place] [address] Care Team Providers Care Potato Chip Fryer Name Role Phone Baljinder Blanchard Primary Care Provider Barbara Herzog Unavailable [phone] Encounters Encounter Location Date Provider Diagnosis [address] [address] 12/12/2024 Barbara Cheung Plan Of Treatment Next Appt Details Provider Name:Barbara plata, 03/06/2025 01:00:00 PM, [address] [place], [address], Progress Notes * Marlin CORREADOB:1950 (74 yo F)Acc No.[id number]:12/12/2024 Progress Note Patient:?Marlin CORREA Provider:?Barbara Cheung DPM :1950???Age:74 Y???Sex:Female D ate:12/12/2024 Address:[address] [place] [address] [place] Pcp:Baljinder Blanchard Subjective: * Chief Complaints: * [...] Date:?0 12/12/2024 Generated for Maia king/Maria C/Vidya on:?02/11/2025 05:46 PM EDT
--- OUTSIDE RECORDS SUMMARY | 2025-02-11 17:47 | XMS_ITS ---
Author Organization [facility] Address [address] [place] [address] Care Team Providers Care Channel Cementer Name Role Phone Baljinder Blanchard Primary Care Provider Barbara Herzog Unavailable [phone] Dunia Ceja [phone] Izaguirre Encounters Encounter Location Date Provider Diagnosis [facility] [address] [place] [address] 09/25/2024 Dunia Ceja Plan Of Treatment Next Appt Details Provider Name:Barbara plata, 03/06/2025 01:00:00 PM, [address] [place], [address], Progress Notes * Marlin CORREADOB:1950 (74 yo F)Acc No.[id number]:09/25/2024 Progress Note Patient:?Marlin CORREA Provider:?Dunia Ceja DPM :1950???Age:74 Y???Sex:Female D ate:09/25/2024 Address: [address] [place] Pcp:Baljinder Blanchard Subjective: * Chief Complaints: * [...] DPM Date:? Generated for Maia king/Maria C/Vidya on:?02/11/2025 05:46 PM EDT
--- OUTSIDE RECORDS SUMMARY | 2025-02-11 17:47 | XMS_ITS | Patient Health Record ---
Author Organization [facility] [place] Address [address] [facility] [place] [address] Care Team Providers Care Human Resources Associate Name Role Phone Baljinder Blanchard Primary Care Provider UnavailBarbara Santo Unavailable [phone] Nilo Kenny Unavailable [phone] Dunia Ceja Unavailable [phone] Allergies Allergen (clinical drug ingredient) Drug/Non Drug [...] 20 MG TAKE 1 CAPSULE BY [facility] EVERY DAY Oral for 90 Days [...] Problem Acquired hammer toe of right foot (35846090836 19807) Other hammer toe(s) (acquired), right foot (M20.41) Active confirmed Problem Acquired hammer toe of left foot (21279382883 94186) Other hammer toe(s) (acquired), left foot (M20.42) Active confirmed Problem Atherosclerosis of [place] artery of both lower extremities, with unspecified presence of clinical manifestation (I70.203) Active confirmed Q7(A), Q8(2B), Q9(1B,2C ) Vital Signs Height 5ft2in in 09/24/2024 Weight 177 lbs 09/24/2024 BMI 32.37 kg/m2 09/24/2024 Procedures Procedure Date Ordered Date Performed Result Body Sit e 12194-VQGVGNU NAIL, 6 OR MORE 09/24/2024 N/A 34085-KYMY SKIN LESIONS, 2 TO 4 09/24/2024 N/A Encounters Encounter Location Date Provider Diagnosis [facility] [place] [address] [place] [address] 07/17/2024 Dunia Ceja Atherosclerosis of [place] artery of both lower extremities, with unspecified presence of clinical manifestation I70.203 ; Tinea unguium B35.1 ; Pain in right toe(s) M79.674 ; Pain in left toe(s) M79.675 ; Other hammer toe(s) (acquired), right foot M20.41 and Other hammer toe(s) (acquired), left foot M20.42 [facility] [address] [address] 09/24/2024 Barbara Cheung Atherosclerosis of [place] artery of both lower extremities, with unspecified presence of clinical manifestation I70.203 ; Tinea unguium B35.1 ; Pain in right toe(s) M79.674 and Pain in left toe(s) M79.675 Assessments Encounter Date Diagnosis (ICD Code) Assessment Notes Treatment Notes Treatment Clinical Notes Section Notes 07/17/2024 Atherosclerosis of [place] artery of both lower extremities, with unspecified presence of clinical manifestation (ICD-10 - I70.203) Q7(A), Q8(2B), Q9(1B,2C) 09/24/2024 Atherosclerosis of [place] artery of both lower extremities, with unspecified [...] Treatment Pending Test Test Name Order Date 13734-PHEHCKQ NAIL, 6 OR MORE 09/24/2024 45434-GJME SKIN LESIONS, 2 TO 4 09/24/20 24 Next Appt Details Provider Name:Barbara plata, 03/06/2025 01:00:00 PM, [address] [facility], [place], [address], Insurance Providers Payer Name Payer Address Payer Phone Subscriber Number Group Number Insured Name Patient Relationship to Insured Coverage Start Date Coverage End Date [employer] [address] [place] [address] [id number] Marlin Correa Self - patient is the [...]
== END 2025-02-11 16:08 | disposition home or self-care (01) ==
LOC: HO.HCS 15:16
PROVIDERS: PCP Family Medicine; Visit Provider Nurse Practitioner Family
DX: I48.0 Paroxysmal atrial fibrillation (principal); Z95.818 Presence of other cardiac implants and grafts; I50.30 Unspecified diastolic (congestive) heart failure; I10 Essential (primary) hypertension; Z95.810 Presence of automatic (implantable) cardiac defibrillator; K62.5 Hemorrhage of anus and rectum; Z79.899 Other long term (current) drug therapy
CPT/HCPCS: 99214; G2211

== ENCOUNTER → 2025-02-11 15:16 | Outpatient (BNVA) | payer MEDICARE, SELFPAY | PROVIDERS: PCP Family Medicine; Visit Provider Nurse Practitioner Family | DX: I48.0 Paroxysmal atrial fibrillation (principal); E66.9 Obesity, unspecified; I11.0 Hypertensive heart disease with heart failure; I50.30 Unspecified diastolic (congestive) heart failure; I25.10 Atherosclerotic heart disease of native coronary artery without angina pectoris; I42.9 Cardiomyopathy, unspecified; K62.5 Hemorrhage of anus and rectum; Z95.810 Presence of automatic (implantable) cardiac defibrillator; Z95.818 Presence of other cardiac implants and grafts; Z68.32 Body mass index [BMI] 32.0-32.9, adult; Z79.899 Other long term (current) drug therapy | CPT/HCPCS: 99212 ==

== ENCOUNTER 2025-02-14 14:09 | Outpatient (REF) | payer MEDICARE, SELFPAY ==
--- NOTE | ~2025-02-14 | XR_ITS ---
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 FINDINGS: PA and lateral views of the chest are submitted. A left sided dual-chamber pacemaker is unchanged in position. The lungs are expanded and clear. There is no pleural effusion, pneumothorax, or pulmonary vascular congestion. The heart is normal in size. Again seen is a metallic device in the left atrial appendage. There is dextroscoliosis and degenerative disc disease of the spine. There is severe degenerative change of both shoulders. XR/XR chest 2V IMPRESSION: No acute cardiopulmonary abnormality. Electronically signed by: Wing Raya MD 02/15/2025 07:01 AM EDT
[2025-02-14 16:33] LABS: Alanine Aminotransferase 169 U/L (0-31); Albumin Level 3.7 g/dL (3.5-5.0); Aspartate Amino Transferase 123 U/L (5-31); Bilirubin Direct 0.2 mg/dL (0.0-0.5); Bilirubin Total 0.4 mg/dL (0.0-1.0); Total Protein 6.6 g/dL (6.5-8.0)
[2025-02-14 16:42] LABS: Alkaline Phosphatase 207 U/L (39-117)
--- OUTSIDE RECORDS SUMMARY | 2025-02-14 17:14 | XMS_ITS ---
Author Organization [facility] [place] Address [address] [place] [address] Care Team Providers Care Technical Buyer Name Role Phone Baljinder Blanchard Primary Care Provider Barbara Herzog Unavailable [phone] Allergies Allergen (clinical drug ingredient) Drug/Non Drug [...] Omeprazole 20 MG TAKE 1 CAPSULE BY [facility] EVERY DAY Oral for 90 Days Active [...] Ordered Date Performed Result Body Sit e 24196-BGYEBBR NAIL, 6 OR MORE 09/24/2024 N/A 69936-KTJT SKIN LESIONS, 2 TO 4 09/24/2024 N/A Encounters Encounter Location Date Provider Diagnosis [facility] [address] [address] 09/24/2024 Barbara Cheung Atherosclerosis of [place] artery of both lower extremities, with unspecified presence of clinical manifestation I70.203 ; Tinea unguium B35.1 ; Pain in right toe(s) M79.674 and Pain in left toe(s) M79.675 Assessments Encounter Date Diagnosis (ICD Code) Assessment Notes Treatment Notes Treatment Clinical Notes Section Notes 09/24/2024 Atherosclerosis of [place] artery of both lower extremities, with unspecified presence of clinical manifestation (ICD-10 - I70.203) Q7(A), Q8(2B), Q9(1B,2C) 09/24/2024 Tinea unguium (ICD-10 - B35.1) 09/24/2024 Pain in right toe(s) (ICD-10 - M79.674) 09/24/2024 Pain in left toe(s) (ICD-10 - M79.675) Plan Of Treatment Pending Test Test Name Order Date 78205-EVRTUYT NAIL, 6 OR MORE 09/24/2024 95260-ICYI SKIN LESIONS, 2 TO 4 09/24/20 24 Next Appt Details Follow Up: 3 Months, Reason: Provider Name:Barbara Lamberto plata, 03/06/2025 01:00:00 PM, [address] [place], [address], Procedure Notes * Category Sub-Category [...] use of a nail nipper and/or dremel-type pulp grinder and blender, to a more viable healthy nail plate [...] to maintain effectiveness in symptomatic relief - 77841 Keratoma Treatment Parring or Cutting o f Benign Hyperkeratotic Lesion(s) Q8, (-56) 2-4 Lesions - The Benign hyperkeratotic lesions, ( 2) in total, locations as stated and described in exam, were pared, and/or cut utilizing a sterile 15 blade, tissue nippers, and/or power dremel instrumentation - 69005 Progress Notes * Marlin CORREADOB:1950 (74 yo F)Acc No.[id number]:09/24/2024 Progress Note Patient:?SUNNY Marlin Donato Provider:?Barbara Cheung DPM :1950???Age:74 Y???Sex:Female D ate:09/24/2024 Address: [address] [place] Pcp:Baljinder Blanchard Subjective: * Chief Complaints: * [...] and time.? Assessment: * Assessment: 1.?Atherosclerosis of [place] artery of both lower extremities, with unspecified presence of clinical manifestation - I70.203 (Primary)???Notes :Q7(A), Q8(2B), Q9(1B,2C)???2.?Tinea unguium - B35.1???3.?Pain in right toe(s) - M79.674???4.?Pain in left toe(s) - M79.675??? Plan: * Treatment: 2.?Tinea unguium?Procedure: 23773-ZYDTLDE NAIL, 6 OR MORE * Procedures:?Debride Nail [...] use of a nail nipper and/or dremel-type pulp grinder and blender, to a more viable healthy nail plate [...] to maintain effectiveness in symptomatic relief - 03982.?Keratoma Treatment:?Parring or Cutting of Benign Hyperkeratotic Lesion(s)?Q8, (-56) 2-4 Lesions - The Benign hyperkeratotic lesions, ( 2) in total, locations as stated and described in exam, were pared, and/or cut utilizing a sterile 15 blade, tissue nippers, and/or power dremel instrumentation - 29499.? * Procedure Codes:?76243 DEBRI DE NAIL, 6 OR MORE, Modifiers: XS 93762 TRIM SKIN LESIONS, 2 TO 4, Modifiers: XS , Q8 * Follow Up:?3 Months * Images: * Sign off status: Completed true * Provider:?Barbara Cheung DPM Date:?11/24/2023 Generated for Maia king/Maria C/eTflaviasmitting on:?02/14/2025 05:14 PM EDT History and Physical Notes * [...]
--- OUTSIDE RECORDS SUMMARY | 2025-02-14 17:14 | XMS_ITS | Patient Health Record ---
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
--- OUTSIDE RECORDS SUMMARY | 2025-02-14 17:15 | XMS_ITS | Patient Health Record ---
[facility] ubaldo Carmel Address [address] [facility] [place] [address] Care Team Providers Care Pathologist Name Role Phone Baljinder Blanchard Primary Care Provider UnavailBarbara Santo Unavailable [phone] Nilo Kenny Unavailable [phone] Dunia Ceja Unavailable [phone] Allergies Allergen (clinical drug ingredient) Drug/Non Drug Allergy documented on EMR Reaction Allergy Type Onset Date Status sulfamethoxazole / trimethoprim Bactrim upset stomach Drug Allergy Active Darvocet A500 rash Drug Allergy Act laura Levaquin rash Drug Allergy Active Reason For Referral No Information Medications Medication SIG (Take, Route, Frequency, Duration) Notes Start Date End Date Status Omeprazole 20 MG TAKE 1 CAPSULE BY [facility] EVERY DAY Oral for 90 Days Active [...] Problem Acquired hammer toe of right foot (27479192169 81318) Other hammer toe(s) (acquired), right foot (M20.41) Active confirmed Problem Acquired hammer toe of left foot (16544613160 97739) Other hammer toe(s) (acquired), left foot (M20.42) Active confirmed Problem Atherosclerosis of [place] artery of both lower extremities, with unspecified presence of clinical manifestation (I70.203) Active confirmed Q7(A), Q8(2B), Q9(1B,2C ) Vital Signs Height 5ft2in in 09/24/2024 Weight 177 lbs 09/24/2024 BMI 32.37 kg/m2 09/24/2024 Procedures Procedure Date Ordered Date Performed Result Body Sit e 82777-TNRMUWY NAIL, 6 OR MORE 09/24/2024 N/A 82368-IIVW SKIN LESIONS, 2 TO 4 09/24/2024 N/A Encounters Encounter Location Date Provider Diagnosis [facility] [place] [address] 07/17/2024 Dunia Ceja Atherosclerosis of [place] artery of both lower extremities, with unspecified presence of clinical manifestation I70.203 ; Tinea unguium B35.1 ; Pain in right toe(s) M79.674 ; Pain in left toe(s) M79.675 ; Other hammer toe(s) (acquired), right foot M20.41 and Other hammer toe(s) (acquired), left foot M20.42 [facility] [address] [address] 09/24/2024 Barbara Cheung Atherosclerosis of [place] artery of both lower extremities, with unspecified presence of clinical manifestation I70.203 ; Tinea unguium B35.1 ; Pain in right toe(s) M79.674 and Pain in left toe(s) M79.675 Assessments Encounter Date Diagnosis (ICD Code) Assessment Notes Treatment Notes Treatment Clinical Notes Section Notes 07/17/2024 Atherosclerosis of [place] artery of both lower extremities, with unspecified presence of clinical manifestation (ICD-10 - I70.203) Q7(A), Q8(2B), Q9(1B,2C) 09/24/2024 Atherosclerosis of [place] artery of both lower extremities, with unspecified [...] Treatment Pending Test Test Name Order Date 48958-IKCGQAH NAIL, 6 OR MORE 09/24/2024 06125-MXNT SKIN LESIONS, 2 TO 4 09/24/20 24 Next Appt Details Provider Name:Barbara plata, 03/06/2025 01:00:00 PM, [address] [facility], [place], [address], Insurance Providers Payer Name Payer Address Payer Phone Subscriber Number Group Number Insured Name Patient Relationship to Insured Coverage Start Date Coverage End Date [employer] [address] [place] [address] [id number] Marlin Correa Self - patient is the [...]
--- OUTSIDE RECORDS SUMMARY | 2025-02-14 17:15 | XMS_ITS ---
Author Organization [facility] Address [address] [place] [address] Care Team Providers Care [facility] Name Role Phone Baljinder Blanchard Primary Care Provider Barbara Herzog Unavailable [phone] Dunia Ceja [phone] Izaguirre Encounters Encounter Location Date Provider Diagnosis [facility] [address] [place] [address] 09/25/2024 Dunia Ceja Plan Of Treatment Next Appt Details Provider Name:Barbara plata, 03/06/2025 01:00:00 PM, [address] [place], [address], Progress Notes * Marlin CORREADOB:1950 (74 yo F)Acc No.[id number]:09/25/2024 Progress Note Patient:?Marlin CORREA Provider:?Dunia Ceja DPM :1950???Age:74 Y???Sex:Female D ate:09/25/2024 Address: [address] Pcp:Baljinder Blanchard Subjective: * Chief Complaints: * [...] DPM Date:? Generated for Maia king/Maria C/Vidya on:?02/14/2025 05:14 PM EDT
--- OUTSIDE RECORDS SUMMARY | 2025-02-14 17:15 | XMS_ITS ---
Author Organization [facility] Jeanie conner [place] Address [address] [place] [address] Care Team Providers Care University Intern Name Role Phone Baljinder Blanchard Primary Care Provider Barbara Herzog Unavailable [phone] Encounters Encounter Location Date Provider Diagnosis [address] [address] 12/12/2024 Barbara Cheung Plan Of Treatment Next Appt Details Provider Name:Barbara plata, 03/06/2025 01:00:00 PM, [address] [place], [address], Progress Notes * Marlin CORREADOB:1950 (74 yo F)Acc No.[id number]:12/12/2024 Progress Note Patient:?Marlin CORREA Provider:?Barbara Cheung DPM :1950???Age:74 Y???Sex:Female D ate:12/12/2024 Address:[address] [place] [address] [place] Pcp:Baljinder Blanchard Subjective: * Chief Complaints: * [...] Date:?0 12/12/2024 Generated for Maia king/Maria C/Vidya on:?02/14/2025 05:14 PM EDT
== END 2025-02-14 14:10 | disposition home or self-care (01) ==
LOC: HO.XRAY 14:09
PROVIDERS: PCP Family Medicine; Visit Provider Nurse Practitioner Family
DX: I48.0 Paroxysmal atrial fibrillation (principal); Z79.899 Other long term (current) drug therapy
CPT/HCPCS: 36415; 71046; 80076; 84443

== ENCOUNTER → 2025-02-14 14:30 | Outpatient (BNV) | payer MEDICARE, SELFPAY | PROVIDERS: PCP Family Medicine; Visit Provider Radiology Diagnostic Radiology | DX: Z79.899 Other long term (current) drug therapy (principal) | CPT/HCPCS: 71046 ==

== ENCOUNTER 2025-03-07 13:47 | Outpatient (AMB) | payer MEDICARE, SELFPAY ==
--- NOTE | 2025-03-07 14:15 | A.OFFVIS_ITS ---
Vital Signs 03/07/25 14:17 Height 5 ft 1.5 in Weight 173 lb BMI 32.2 BP 126/66 Blood Pressure Location Lt brachial Position Sitting Pulse 66 Intake Visit Reasons: recurrent incisional hernia Intake Note: Patient is seen in office for evaluation of a recurrent hernia. Pt c/o: had a CT scan and was told there is fluid around the hernia, here to discuss results, admits to feeling something dragging in the area CT:03/12/24 Industrial Service Technician Required: No Accompanied by: Self / Same As Patient Allergies levofloxacin [From LEVAQUIN] Allergy (Intermediate, Verified 03/07/25 14:17) RASH Darvocet-N 50 Allergy (Mild, Uncoded 03/07/25 14:17) hives Sulfacet-R Allergy (Unknown, Uncoded 03/07/25 14:17) gi Medication List - Last Reconciled 03/07/25 by Wilfred Sin MD alendronate 70 mg PO DELGADO amiodarone 100 mg PO DAILY aspirin (Adult Aspirin Regimen) 81 mg PO DAILY atorvastatin 20 mg PO BEDTIME carvedilol 12.5 mg PO BID cholecalciferol (vitamin D3) (Vitamin D3) 25 mcg PO BID clonazepam 2 mg PO BEDTIME PRN compression socks, medium As directed furosemide 20 mg PO DAILY levothyroxine 75 mcg PO DAILY@0600 loratadine 10 mg PO DAILY multivitamin 1 tab PO DAILY omeprazole 20 mg PO DAILY ondansetron HCl 4 mg PO Q6H PRN sennosides (senna) 17.2 mg PO BEDTIME tramadol 100 mg PO TID valsartan 80 mg PO DAILY zinc oxide 13% 1 appl topical DAILY PRN HPI Comments Details: 74-year-old female patient with a previous history of a repair of a recurrent large incisional hernia, status post open repair with mesh on 04/11/2024. She recently underwent a CT abdomen and pelvis requested by her Gyne Onc Dr. Chamorro at [facility]. There was no evidence of recurrent cancer however fluid was noted in the right lower quadrant at the site of her previous hernia repair. She reports some pulling at this location. CT reports from [facility] does not mention any evidence of recurrent hernia at this location however images were not available to review at the time of this visit. [facility] Medical History Hernia, ventral, with obstruction Asthma Degenerative joint disease Arthritis Thyroid disease Hx of transfusion of packed red blood cells Diverticulosis GERD (gastroesophageal reflux disease) Fibromyalgia Elevated liver enzymes Elevated cholesterol Osteoporosis Presence of Watchman left atrial appendage closure device Hx of radiation therapy History of chemotherapy History of uterine cancer Mild intermittent asthma Osteoarthritis of left hip Cardiomyopathy CAD (coronary artery disease) Pre-operative cardiovascular examination HTN (hypertension) Biventricular ICD (implantable cardioverter-defibrillator) in place (~04/2020) Paroxysmal atrial fibrillation LBBB (left bundle branch block) Chronic systolic heart failure Surgical History History of incisional hernia repair (04/11/24) Hx of cholecystectomy Hx of hysterectomy History of total left hip replacement Hx of hernia repair History of permanent cardiac pacemaker placement Family History Father Cancer Mother No problems noted. 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 for cleaning, bathing) Alcohol intake: never Comment: pt rings appropriately Patient Tobacco Use Status: Never used Tobacco e-Cigarette/Vaping Use: Never Used Second Hand Smoke Exposure: No Advance Directives Date on File: 10/08/21 service: No Current occupational status: retired Current occupation: rt handed Review of Systems Const Unobtainable due to mental condition Physical Exam Vital Signs: Last Vital Signs Pulse 66 03/07/25 14:17 BP 126/66 03/07/25 14:17 BMI result Body Mass Index 32.2 Const General: comfortable Nutritional Appearance: well nourished Orientation/consciousness: patient oriented x3 Limitations: ambulation with walker Resp Effort & Inspection: normal respiratory effort GI Other: Abdominal incision is clean, dry, and intact. Scar tissue noted in the right lower quadrant at the site of the previous surgery. No changes are noted with Valsalva maneuvers. The previously palpable hematoma is no longer evident at this time. There is no evidence of erythema to indicate underlying infection. The incisions are otherwise well healed. Skin Other: Warm and dry, Neuro General: patient oriented x3 Assessment & Plan Assessment & Plan (1) Recurrent ventral hernia: Code(s): K43.2 - Incisional hernia without obstruction or gangrene Category: Medical Plan Patient returns for wound check following repair of a recurrent incisional hernia on 04/11/2024. A recent CT abdomen and pelvis revealed some fluid in the right lower quadrant at the site of the previous hernia repair. On examination no evidence of recurrent hernias identified although exam is difficult due the patient's body habitus. I will request a copy of the CT to review to better evaluate this fluid collection. We will call the patient with the results after a review the scan. She expressed understanding and agrees with the plan. Coding Level of Care Code Est Pt Level 3 (39747) Diagnoses Recurrent ventral hernia K43.2
[2025-03-07 14:17] VITALS: BP 126/66; PULSE 66; BMI 32.2
--- OUTSIDE RECORDS SUMMARY | 2025-03-07 14:42 | XMS_ITS ---
Author Organization [facility] Jeanie conner [place] Address [address] [place] [address] Care Team Providers Care Credit Risk Manager Name Role Phone Baljinder Blanchard Primary Care Provider Barbara Herzog Unavailable [phone] Encounters Encounter Location Date Provider Diagnosis [address] [address] 12/12/2024 Barbara Cheung Plan Of Treatment Next Appt Details Provider Name:Barbara plata, 05/09/2025 01:00:00 PM, [address] [place], [address], Progress Notes * Marlin CORREADOB:1950 (74 yo F)Acc No.[id number]:12/12/2024 Progress Note Patient:?Marlin CORREA Provider:?Barbara Cheung DPM :1950???Age:74 Y???Sex:Female D ate:12/12/2024 [place] [place] Pcp:Baljinder Blanchard Subjective: * Chief Complaints: * [...] Date:?0 12/12/2024 Generated for Maia king/Maria C/Vidya on:?03/07/2025 02:42 PM EDT
--- OUTSIDE RECORDS SUMMARY | 2025-03-07 14:42 | XMS_ITS ---
Author Organization [facility] Address [address] [place] [address] Care Team Providers Care Therapy Aide Name Role Phone Baljinder Blanchard Primary Care Provider Barbara Herzog Unavailable [phone] Dunia Ceja [phone] Izaguirre Encounters Encounter Location Date Provider Diagnosis [facility] [address] [place] [address] 09/25/2024 Dunia Ceja Plan Of Treatment Next Appt Details Provider Name:Barbara plata, 05/09/2025 01:00:00 PM, [address] [place], [address], Progress Notes * Marlin CORREADOB:1950 (74 yo F)Acc No.[id number]:09/25/2024 Progress Note Patient:?Marlin CORREA Provider:?Dunia Ceja DPM :1950???Age:74 Y???Sex:Female D ate:09/25/2024 Address: [address] [place] Pcp:Baljinder Blanchard Subjective: * Chief Complaints: * [...] DPM Date:? Generated for Maia king/Maria C/Vidya on:?03/07/2025 02:42 PM EDT
--- OUTSIDE RECORDS SUMMARY | 2025-03-07 14:42 | XMS_ITS ---
Author Organization [facility] [place] Address [address] [address] Care Team Providers Care Financial Planning Advisor Name Role Phone Baljinder Blanchard Primary Care Provider Barbara Herzog Unavailable [phone] Allergies Allergen (clinical drug ingredient) Drug/Non Drug Allergy documented on EMR Reaction Allergy Type Onset Date Status sulfamethoxazole / trimethoprim Bactrim upset stomach Drug Allergy Active Darvocet A500 rash Drug Allergy Act laura Levaquin rash Drug Allergy Active REASON FOR VISIT At Risk Footcare, Painful Nail(s) aggravated by shoes and causing difficulty standing/walking. Medications Medication SIG (Take, Route, Frequency, Duration) Notes Start Date End Date Status Albuterol Sulfate HFA 108 (90 Base) MCG/ACT 1 puff as needed Inhalation every 4 hrs Active Lomotil 2.5-0.025 MG 1 tablet as needed Orally 12/28/2023 Active Clopidogrel Bisulfate 75 MG 1 tablet Ora lly Once a day Unknown Multivitamin 12/28/2023 Active Centrum Silver 12/28/2023 Acti ve Aspirin 81 MG 1 tablet Orally Once a day Active Amiodarone HCl 200 MG 1 tablet Orally On ce a day Active Carvedilol 12.5 MG 1 tablet with food Orally Twice a day Active Atorvastatin Calcium 20 MG 1 tablet Oral ly Once a day Active Vitamin D3 Active Zofran PRN 12/28/2023 Active Furosemide 20 MG 1 tablet Orally Once a day Active clonazePAM 2 MG 1 tablet Orally Once a day Active Omeprazole 20 MG TAKE 1 CAPSULE BY [facility] EVERY DAY Oral for 90 Days Active Levothyroxine Sodium 75 MCG Oral for 90 Days Active Claritin 10 MG 1 tablet Orally Once a day Active Valsartan 80 MG 1 tablet Orally Once a day Active traMADol HCl 50 MG 1 tablet as needed Orally Once a day Active Cholecalciferol Acti ve Alendronate Sodium 70 MG 1 tablet 30 min utes before the first food, beverage or medicine of the day with plain water Orally Active Diphenoxylate-Atropine 2.5-0.025 MG 1 tablet as needed Orally Four times a day Unknown Fosamax 70 MG 1 tablet 30 minutes before the first food, beverage or medicine of the day with plain water Orally Unknown Senna Active Social History Tobacco Use: Social History Observation Description Date Details (start date - stop date) Never Smoker NA - NA Tobacco use other than smoking: Question Answer Notes Are you an other tobacco user? No Tobacco Control (Standard) Question Answer Notes Tobacco use: Nonsmoker Additional Findings: Tobacco non-user Current no nsmoker AUDIT-C (Standard) Question Answer Notes Did you have a drink containing alcohol in the p ast year? No Points 0 Interpretation Negative Vital Signs Height 5ft2in in 03/06/2025 Weight 177 lbs 03/06/2025 BMI 32.37 kg/m2 03/06/2025 Blood pressure systolic 128 mm Hg 03/06/20 25 Blood pressure diastolic 65 mm Hg 025 Encounters Encounter Location Date Provider Diagnosis [facility] [address] [address] 03/06/2025 Barbara Cheung Atherosclerosis of [place] artery of both lower extremities, with unspecified presence of clinical manifestation I70.203 ; Tinea unguium B35.1 ; Pain in right toe(s) M79.674 and Pain in left toe(s) M79.675 Assessments Encounter Date Diagnosis (ICD Code) Assessment Notes Treatment Notes Treatment Clinical Notes Section Notes 03/06/2025 Atherosclerosis of [place] artery of both lower extremities, with unspecified presence of clinical manifestation (ICD-10 - I70.203) Q7(A), Q8(2B), Q9(1B,2C) 03/06/2025 Tinea unguium (ICD-10 - B35.1) 03/06/2025 Pain in right toe(s) (ICD-10 - M79.674) 03/06/2025 Pain in left toe(s) (ICD-10 - M79.675) Plan Of Treatment Next Appt Details Follow Up: 4 Months, Reason: Provider Name:Barbara plata, 05/09/2025 01:00:00 PM, [address] [place] [address], [phone], Procedure Notes * Category Sub-Category Detail Notes Debride Nail 6-10 Nail debridement Due to the cl inical pathology outlined in the exam findings, performance of this nail treatment is medically necessary as its management by an unskilled/untrained nonprofessional would put this patients foot and overall health at risk. Therefore, debridement to affected nail(s), as described in exam ( TA, T1, T2, T3, T4, T5, T6, T7, T8, T9, ), was performed exclusively by the physician of record to reduce/remove overall nail length, girth, thickness, subungual debris, and necrotic tissue, by manual and/or electrical means through the use of a nail nipper and/or dremel-type flute grinder, to a more viable healthy nail [...] to maintain effectiveness in symptomatic relief - 27475 Keratoma Treatment Parring or Cutting o f Benign Hyperkeratotic Lesion(s) (-56) 2-4 Lesions - Due to the at risk nature of the patients medical condition as documented in the exam findings, performance of this keratoderma treatment is medically necessary as its management by an unskilled/untrained nonprofessional would put this patients foot and overall health at risk. Therefore, the benign hyperkeratotic lesions, (2) in total, locations as stated and described in the exam ( _sub 5th MTH B/L__ ), were pared, and/or cut utilizing a sterile 15 blade, tissue nippers, and/or power dremel instrumentation by the physician of record - 20393, Q8 Progress Notes * Marlin CORREAB:1950 (74 yo F)Acc No.[id number]:03/06/2025 Progress Note Patient:?Marlin CORREA Provider:?Barbara Cheung DPM :1950???Age:74 Y???Sex:Female D ate:03/06/2025 Address: [place], [place] Pcp:Baljinder Blanchard Subjective: * Chief Complaints: * ???At Risk FootcarePainful N ail(s) aggravated by shoes and causing difficulty standing/walking. * HPI: ???At Risk footcare:?Pt States Last PCP Visit:?Date?01/22/2025 * ROS:?General/Constitutional:?Nausea?denies.?Vomiting?denies.?Hunger Thirst?denies.?Loss appetite?denies.?Chills?denies.?Fatigue?denies.?Fever?denies.?Night Sweats?denies.?Unexplained weight loss?denies.?Unexplained [...] of unspecified site.? * Social History:?Tobacco Use:?Tobacco use other than smoking?Are you an other tobacco user??No ?Tobacco Control (Standard)?Tobacco use:?Nonsmoker ?Additional Findings: Tobacco non-user?Current nonsmoker ???Drugs/Alcohol:?Drugs?Have you used drugs other than those for medical reasons in the past 12 months??No ???Miscellaneous:?Caffeine: yes, 2-3 cups of tea per day. ?Children: yes, 3. ?Exercise: no. ?Marital status: single. ?Occupation: Retired. ???Drug/Alcohol:?AUDIT-C (Standard)?Did you have a drink containing alcohol in the past year??No ?Points?0 ?Interpretation?Negative * Medications:?TakingSenna Cho lecalciferol Alendronate Sodium 70 MG Tablet 1 tablet 30 minutes before the first food, beverage or medicine of the day with plain water Orally Valsartan 80 MG Tablet 1 tablet Orally Once a day traMADol HCl 50 MG Tablet 1 tablet as needed Orally Once a day Claritin 10 MG Tablet 1 tablet Orally Once a day Mickey , Notes to Pharmacist: PRNOmeprazole 20 MG [...] as needed Orally Multivitamin Centrum Silver Taking Senna Taking Cholecalciferol Taking Alendronate Sodium 70 MG Tablet 1 [...] needed Inhalation every 4 hrs Taking Lomotil 2.5- 0.025 MG Tablet 1 tablet as needed Orally [...] with the patient * Allergies:?[facility]actrim[facility]: rashLevaquin: rashyes[Allergies Verified] Objective: * Vitals:?Ht:5ft2in, Wt:177, B VT:32.37, Shoe size:10, BP:128/65mm Hg, Ht-cm: 157.48 cm, Wt-k.29 kg. * Examination: ???Vascular: ?DP PULSES (B):?1/4, B/L.?PT PULSES (B):? 0/4, B/L.?CAPILLARY FILL TIME:? delayed, all digits, B/L.?TROPHIC CONDITION-TEXTURE/ELASTICITY/TURGOR/HAIR GROWTH (B):? decreased, fragile, thin, shiny skin, with sparse to absent hair growth, B/L.?TEMPERTURE GRADIENT (C):? decreased, cool to cool, proximal to distal, B/L.?PIGMENTATION:?mottled, B/L.?EDEMA (C):?1/4, pitting, without aching pain, Leg(s), Ankle(s).?CLAUDICATION (C):?denies, B/L.?REST PAIN:?denies, B/L.?PARESTHESIA (C):?absent, B/L.?BURNING (C):?absent, B/L.?Nails: ?NAILS are:?Elongated, overgrown, dystrophic, lytic, greater than 3mm thick, discolored and friable with crumbly malodorous subungual debris, with pain on palpation,?, TA, T1, T2, T3, T4, T5, T6, T7, T8, T9.?Dermatologic: ?SKIN FINDINGS:?Skin exam reveals Keratotic lesion(s) located [...] and time.? Assessment: * Assessment: 1.?Atherosclerosis of [place] artery of both lower extremities, with unspecified presence of clinical manifestation - I70.203 (Primary)???Notes :Q7(A), Q8(2B), Q9(1B,2C)???2.?Tinea unguium - B35.1???3.?Pain in right toe(s) - M79.674???4.?Pain in left toe(s) - M79.675??? Plan: * Treatment: * Procedures:?Debride Nail 6-10:?Nail debridement?Due to the clinical pathology outlined in the exam findings, performance of this nail treatment is medically necessary as its management by an unskilled/untrained nonprofessional would put this patients foot and overall health at risk. Therefore, debridement to affected nail(s), as described in exam ( TA, T1, T2, T3, T4, T5, T6, T7, T8, T9, ), was performed exclusively by the physician of record to reduce/remove overall nail length, girth, thickness, subungual debris, and necrotic tissue, by manual and/or electrical means through the use of a nail nipper and/or dremel-type flute grinder, to a more viable healthy nail plate or bed tissue 6- 10 nails in total. Silver nitrate was used for any petechial bleeding as necessary. Definitive antifungal treatment options, both pharmaceutical and surgical, have been reviewed and discussed with the patient. The patient solely prefers the use of intermittent/as needed professional debridement services for their nail condition and understands the need for additional periodic treatments to maintain effectiveness in symptomatic relief - 98251.?Keratoma Treatment:?Parring or Cutting of Benign Hyperkeratotic Lesion(s)?(-56) 2-4 Lesions - Due to the at risk nature of the patients medical condition as documented in the exam findings, performance of this keratoderma treatment is medically necessary as its management by an unskilled/untrained nonprofessional would put this patients foot and overall health at risk. Therefore, the benign hyperkeratotic lesions, (2) in total, locations as stated and described in the exam ( _sub 5th MTH B/L__ ), were pared, and/or cut utilizing a sterile 15 blade, tissue nippers, and/or power dremel instrumentation by the physician of record - 85088, Q8.? * Procedure Codes:?68164 DEBRI DE NAIL, 6 OR MORE, Modifiers: XS 87958 TRIM SKIN LESIONS, 2 TO 4, Modifiers: XS , Q8 * Follow Up:?4 Months * Images: * Sign off status: Completed true * Provider:?Barbara Cheung DPM Date:?0 03/06/2025 Generated for Maia king/Maria C/eTransmitting on:?03/07/2025 02:42 PM EDT History and Physical Notes * HPI (History of Present Illness) Category Sub-Category Detail Notes Category Not es At Risk footcare Pt States Last PCP Visit: Date: Examination Category Sub-Category Detail Notes Category Not [...] to absent hair growth, B/L EDEMA (C): 1/, pitting, withou t aching pain, Leg(s), Ankle(s) CLAUDICATION (C): denies, B/L REST PAIN: denies, B/L PIGMENTATION: mottled, B/L PARESTHESIA (C): absent, B/L BURNING (C): absent, B/L Nails NAILS are: Elongated, overg rown, dystrophic, lytic, greater than 3mm thick, discolored and friable with crumbly malodorous subungual debris, with pain on palpation, , TA, T1, T2, T3, T4, T5, T6, T7, T8, T9
--- OUTSIDE RECORDS SUMMARY | 2025-03-07 14:42 | XMS_ITS | Patient Health Record ---
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
--- OUTSIDE RECORDS SUMMARY | 2025-03-07 14:43 | XMS_ITS | Patient Health Record ---
Author [facility] [place] Address [address] [place] [address] Care Team Providers Care Dean Of Graduate Studies Name Role Phone Baljinder Blanchard Primary Care Provider UnavailBarbara Santo Unavailable [phone] Nilo Kenny Unavailable [phone] Dunia Ceja Unavailable [phone] Allergies Allergen (clinical drug ingredient) Drug/Non Drug Allergy documented on EMR Reaction Allergy Type Onset Date Status sulfamethoxazole / trimethoprim Bactrim upset stomach Drug Allergy Active Darvocet A500 rash Drug Allergy Act laura Levaquin rash Drug Allergy Active Reason For Referral No Information Medications Medication SIG (Take, Route, Frequency, Duration) Notes Start Date End Date Status Claritin 10 MG 1 tablet Orally Once a day Active Albuterol Sulfate HFA 108 (90 Base) MCG/ACT 1 puff as needed Inhalation every 4 hrs Active Zofran PRN 12/28/2023 Active Lomotil 2.5-0.025 MG 1 tablet as needed Orally 12/28/2023 Active Valsartan 80 MG 1 tablet Orally Once a day Active Aspirin 81 MG 1 tablet Orally Once a day Active traMADol HCl 50 MG 1 tablet as needed Orally Once a day Active Amiodarone HCl 200 MG 1 tablet Orally On ce a day Active Cholecalciferol Acti ve Carvedilol 12.5 MG 1 tablet with food Orally Twice a day Active Alendronate Sodium 70 MG 1 tablet 30 min utes before the first food, beverage or medicine of the day with plain water Orally Active Atorvastatin Calcium 20 MG 1 tablet Oral ly Once a day Active Diphenoxylate-Atropine 2.5-0.025 MG 1 tablet as needed Orally Four times a day Unknown Vitamin D3 Active Fosamax 70 MG 1 tablet 30 minutes before the first food, beverage or medicine of the day with plain water Orally Unknown Senna Active Furosemide 20 MG 1 tablet Orally Once a day Active Clopidogrel Bisulfate 75 MG 1 tablet Ora lly Once a day Unknown clonazePAM 2 MG 1 tablet Orally Once a day Active Omeprazole 20 MG TAKE 1 CAPSULE BY [facility] EVERY DAY Oral for 90 Days Active Multivitamin 12/28/2023 Active Levothyroxine Sodium 75 MCG Oral for 90 Days Active Centrum Silver 12/28/2023 Acti ve Social History Tobacco Use: Social History Observation [...] Problem Acquired hammer toe of right foot (6013269085585057) Other hammer toe(s) (acquired), right foot (M20.41) Active confirmed Problem Acquired hammer toe of left foot (7767585266216016) Other hammer toe(s) (acquired), left foot (M20.42) Active confirmed Problem Bilateral atherosclerosis of arteries of lower limbs (disorder) (32954698027323520 ) Atherosclerosis of [place] artery of both lower extremities, with unspecified presence of clinical manifestation (I70.203) Active confirmed Q7(A), Q8(2B), Q9(1B,2 C) Vital Signs Blood pressure diastolic 65 mm Hg 03/06/2025 Height 5ft2in in 03/06/2025 Blood pressure systolic 128 mm Hg 03/06/2025 Weight 177 lbs 03/06/2025 BMI 32.37 kg/m2 03/06/2025 Procedures Procedure Date Ordered Date Performed Result Body Sit e 19749-HQIVKPM NAIL, 6 OR MORE 09/24/2024 N/A 95273-QTHV SKIN LESIONS, 2 TO 4 09/24/2024 N/A Encounters Encounter Location Date Provider Diagnosis [facility] [address] [address] 07/17/2024 Dunia Ceja Atherosclerosis of [place] artery of both lower extremities, with unspecified presence of clinical manifestation I70.203 ; Tinea unguium B35.1 ; Pain in right toe(s) M79.674 ; Pain in left toe(s) M79.675 ; Other hammer toe(s) (acquired), right foot M20.41 and Other hammer toe(s) (acquired), left foot M20.[address] [address] 09/24/2024 Barbara Cheung Atherosclerosis of [place] artery of both lower extremities, with unspecified presence of clinical manifestation I70.203 ; Tinea unguium B35.1 ; Pain in right toe(s) M79.674 and Pain in left toe(s) M79.[address] [address] 03/06/2025 Barbara Cheung Atherosclerosis of [place] artery of both lower extremities, with unspecified presence of clinical manifestation I70.203 ; Tinea unguium B35.1 ; Pain in right toe(s) M79.674 and Pain in left toe(s) M79.675 Assessments Encounter Date Diagnosis (ICD Code) Assessment Notes Treatment Notes Treatment Clinical Notes Section Notes 07/17/2024 Atherosclerosis of [place] artery of both lower extremities, with unspecified presence of clinical manifestation (ICD-10 - I70.203) Q7(A), Q8(2B), Q9(1B,2C) 09/24/2024 Atherosclerosis of [place] artery of both lower extremities, with unspecified presence of clinical manifestation (ICD-10 - I70.203) Q7(A), Q8(2B), Q9(1B,2C) 03/06/2025 Atherosclerosis of [place] artery of both lower extremities, with unspecified presence of clinical manifestation (ICD-10 - I70.203) Q7(A), Q8(2B), Q9(1B,2C) 03/06/2025 Tinea unguium (ICD-10 - B35.1) 09/24/2024 Tinea unguium (ICD-10 - B35.1) 07/17/2024 Tinea unguium (ICD-10 - B35.1) 07/17/2024 Pain in right toe(s) (ICD-10 - M79.674) 09/24/2024 Pain in right toe(s) (ICD-10 - M79.674) 03/06/2025 Pain in right toe(s) (ICD-10 - M79.674) 03/06/2025 Pain in left toe(s) (ICD-10 - M79.675) 09/24/2024 Pain in left toe(s) (ICD-10 - M79.675) 07/17/2024 Pain in left toe(s) (ICD-10 - M79.675) 07/17/2024 Other hammer toe(s) (acquired), right foot (ICD-10 - M20.41) 07/17/2024 Other hammer toe(s) (acquired), left foot (ICD-10 - M20.42) Plan Of Treatment Pending Test Test Name Order Date 14303-PDZFAMK NAIL, 6 OR MORE 09/24/2024 62009-MIVQ SKIN LESIONS, 2 TO 4 09/24/20 24 Next Appt Details Provider Name:Barbara Orantes sherlyn, 05/09/2025 01:00:00 PM, [address] [facility], [place], [address], Insurance Providers Payer Name Payer Address Payer Phone Subscriber Number Group Number Insured Name Patient Relationship to Insured Coverage Start Date Coverage End Date Medicare [employer] [address] [place] [address] [id number] Marlin Correa Self - patient is the [...]
== END 2025-03-07 14:29 | disposition home or self-care (01) ==
LOC: HO.HGS 13:48
PROVIDERS: PCP Family Medicine; Visit Provider Surgery
DX: K43.2 Incisional hernia without obstruction or gangrene (principal)
CPT/HCPCS: 99213

== ENCOUNTER → 2025-03-07 13:47 | Outpatient (BNVA) | payer MEDICARE, SELFPAY | PROVIDERS: PCP Family Medicine; Visit Provider Surgery | DX: R18.8 Other ascites (principal); Z87.19 Personal history of other diseases of the digestive system | CPT/HCPCS: 99212 ==

== ENCOUNTER → 2025-03-09 23:59 | Outpatient (BNV) | payer MEDICARE, SELFPAY ==
--- NOTE | 2025-03-14 17:49 | A.OFFVIS_ITS ---
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 Allergies levofloxacin [From LEVAQUIN] Allergy (Intermediate, Verified 03/07/25 14:17) RASH Darvocet-N 50 Allergy (Mild, Uncoded 03/07/25 14:17) hives Sulfacet-R Allergy (Unknown, Uncoded 03/07/25 14:17) gi PFSH Medical History Hernia, ventral, with obstruction Asthma Degenerative joint disease Arthritis Thyroid disease Hx of transfusion of packed red blood cells Diverticulosis GERD (gastroesophageal reflux disease) Fibromyalgia Elevated liver enzymes Elevated cholesterol Osteoporosis Presence of Watchman left atrial appendage closure device Hx of radiation therapy History of chemotherapy History of uterine cancer Mild intermittent asthma Osteoarthritis of left hip Cardiomyopathy CAD (coronary artery disease) Pre-operative cardiovascular examination HTN (hypertension) Biventricular ICD (implantable cardioverter-defibrillator) in place (~04/2020) Paroxysmal atrial fibrillation LBBB (left bundle branch block) Chronic systolic heart failure Surgical History History of incisional hernia repair (04/11/24) Hx of cholecystectomy Hx of hysterectomy History of total left hip replacement Hx of hernia repair History of permanent cardiac pacemaker placement Family History Father Cancer Mother No problems noted. 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 Heart failure parameters are stable [id number] Cardiac Interrogation, subcut cardiac rhythm monitor Procedure code (CPT) selection complete Assessment & Plan Assessment & Plan (1) Biventricular ICD (implantable cardioverter-defibrillator) in place: Onset Date: ~04/2020 Comment: [employer] Code(s): Z95.810 - Presence of automatic (implantable) cardiac defibrillator Category: Medical Plan: See above Coding Level of Care Code Procedure Only Diagnoses Biventricular ICD (implantable cardioverter-defibrillator) in place Z95.810 CPT Codes Cardiac Device Check - Cardiac Device 16: 70691-Orhnvm Cardiac Interrogation, subcut cardiac rhythm monitor ([id number])
== END ==
PROVIDERS: PCP Family Medicine; Visit Provider Internal Medicine Cardiovascular Disease
DX: Z45.02 Encounter for adjustment and management of automatic implantable cardiac defibrillator (principal)
CPT/HCPCS: 93297

== ENCOUNTER 2025-03-12 13:25 | Outpatient (REF) | payer MEDICARE, SELFPAY ==
[2025-03-12 14:30] LABS: Alanine Aminotransferase 15 U/L (0-31); Albumin Level 3.8 g/dL (3.5-5.0); Alkaline Phosphatase 138 U/L (39-117); Aspartate Amino Transferase 23 U/L (5-31); Bilirubin Direct 0.2 mg/dL (0.0-0.5); Bilirubin Total 0.7 mg/dL (0.0-1.0); Total Protein 6.9 g/dL (6.5-8.0)
--- OUTSIDE RECORDS SUMMARY | 2025-03-12 14:30 | XMS_ITS | Patient Health Record ---
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
--- OUTSIDE RECORDS SUMMARY | 2025-03-12 14:30 | XMS_ITS ---
Author Organization [facility] [address] Address [address] [place] [address] Care Team Providers Care Lcac Operator Name Role Phone Baljinder Blanchard Primary Care Provider Barbara Herzog Unavailable [phone] Encounters Encounter Location Date Provider Diagnosis [address] [address] 12/12/2024 Barbara Cheung Plan Of Treatment Next Appt Details Provider Name:Barbara plata, 05/09/2025 01:00:00 PM, [address] [place], [address], Progress Notes * Marlin CORREADOB:1950 (74 yo F)Acc No.[id number]:12/12/2024 Progress Note Patient:?Marlin CORREA Provider:?Barbara Cheung DPM :1950???Age:74 Y???Sex:Female D ate:12/12/2024 Address: [address] Pcp:Baljinder Blanchard Subjective: * Chief Complaints: * [...] Date:?0 12/12/2024 Generated for Maia king/Maria C/Vidya on:?03/12/2025 02:30 PM EDT
--- OUTSIDE RECORDS SUMMARY | 2025-03-12 14:31 | XMS_ITS ---
Author Organization [facility] Address [address] [place] [address] Care Team Providers Care Utility Porter Name Role Phone Baljinder Blanchard Primary Care Provider Barbara Herzog Unavailable [phone] Dunia Ceja [phone] Izaguirre Encounters Encounter Location Date Provider Diagnosis [facility] [address] [place] [address] 09/25/2024 Dunia Ceja Plan Of Treatment Next Appt Details Provider Name:Barbara plata, 05/09/2025 01:00:00 PM, [address] [place], [address], Progress Notes * Marlin CORREADOB:1950 (74 yo F)Acc No.[id number]:09/25/2024 Progress Note Patient:?Marlin CORREA Provider:?Dunia Ceja DPM :1950???Age:74 Y???Sex:Female D ate:09/25/2024 Address: [address] [place] Pcp:Baljinder Blanchard Subjective: * Chief Complaints: * [...] DPM Date:? Generated for Maia king/Maria C/Vidya on:?03/12/2025 02:30 PM EDT
--- OUTSIDE RECORDS SUMMARY | 2025-03-12 14:31 | XMS_ITS ---
Author Organization [facility] ubaldo Crane Address [address] [facility] [place] [address] Care Team Providers Care Mill Operator Helper Name Role Phone Baljinder Blanchard Primary Care Provider Barbara Herzog Unavailable [phone] Allergies Allergen (clinical drug ingredient) Drug/Non Drug [...] Omeprazole 20 MG TAKE 1 CAPSULE BY [facility] EVERY DAY Oral for 90 Days [...] 025 Encounters Encounter Location Date Provider Diagnosis [facility] [address] [address] 03/06/2025 Barbara Cheung Atherosclerosis of [place] artery of both lower extremities, with unspecified presence of clinical manifestation I70.203 ; Tinea unguium B35.1 ; Pain in right toe(s) M79.674 and Pain in left toe(s) M79.675 Assessments Encounter Date Diagnosis (ICD Code) Assessment Notes Treatment Notes Treatment Clinical Notes Section Notes 03/06/2025 Atherosclerosis of [place] artery of both lower extremities, with unspecified presence of clinical manifestation (ICD-10 - I70.203) Q7(A), Q8(2B), Q9(1B,2C) 03/06/2025 Tinea unguium (ICD-10 - B35.1) 03/06/2025 Pain in right toe(s) (ICD-10 - M79.674) 03/06/2025 Pain in left toe(s) (ICD-10 - M79.675) Plan Of Treatment Next Appt Details Follow Up: 4 Months, Reason: Provider Name:Barbara plata, 05/09/2025 01:00:00 PM, [address] [place] [address], [id number], Procedure Notes * Category Sub-Category Detail Notes [...] use of a nail nipper and/or dremel-type outer diameter grinder tool, to a more viable healthy nail plate [...] to maintain effectiveness in symptomatic relief - 17279 Keratoma Treatment Parring or Cutting o f [...] instrumentation by the physician of record - 72050, Q8 Progress Notes * Marlin CORREAB:1950 (74 yo F)Acc No.[id number]:03/06/2025 Progress Note Patient:?Marlin CORREA Provider:?Barbara Cheung DPM :1950???Age:74 Y???Sex:Female D ate:03/06/2025 Address: [place], [place] Pcp:Baljinder Blanchard Subjective: * Chief Complaints: * [...] with the patient * All[facility]ies:?[facility]: rashLevaquin: rashyes[Allergies Verified] Objective: * Vitals:?Ht:5ft2in, Wt:177, B KS:32.37, Shoe size:10, BP:128/65mm Hg, Ht-cm: 157.48 cm, [...] and time.? Assessment: * Assessment: 1.?Atherosclerosis of [place] artery of both lower extremities, with unspecified [...] use of a nail nipper and/or dremel-type outer diameter grinder tool, to a more viable healthy nail plate [...] to maintain effectiveness in symptomatic relief - 28512.?Keratoma Treatment:?Parring or Cutting of Benign Hyperkeratotic Lesion(s)?(-56) [...] instrumentation by the physician of record - 24556, Q8.? * Procedure Codes:?30132 DEBRI DE NAIL, 6 OR MORE, Modifiers: XS 90594 TRIM SKIN LESIONS, 2 TO 4, Modifiers: XS , Q8 * Follow Up:?4 Months * Images: * Sign off status: Completed true * Provider:?Barbara Cheung DPM Date:?0 03/06/2025 Generated for Maia king/Maria C/eTransmitting on:?03/12/2025 02:30 PM EDT History and Physical Notes * [...]
--- OUTSIDE RECORDS SUMMARY | 2025-03-12 14:31 | XMS_ITS | Patient Health Record ---
Author [facility] ubaldo Graford Address [address] [facility] [place] [address] Care Team Providers Care Skein Bleacher Name Role Phone Baljinder Blanchard Primary Care Provider UnavailBarbara Santo Unavailable [phone] Nilo Kenny Unavailable [phone] Dunia Ceja Unavailable [phone] Allergies Allergen (clinical drug ingredient) Drug/Non Drug [...] Omeprazole 20 MG TAKE 1 CAPSULE [address] [facility] EVERY DAY Oral for 90 Days Active [...] Problem Acquired hammer toe of right foot (2716433086209622) Other hammer toe(s) (acquired), right foot (M20.41) Active confirmed Problem Acquired hammer toe of left foot (9217632180091036) Other hammer toe(s) (acquired), left foot (M20.42) Active confirmed Problem Bilateral atherosclerosis of arteries of lower limbs (disorder) (85573415570674118 ) Atherosclerosis of [place] artery of both lower extremities, with unspecified presence of clinical manifestation (I70.203) Active confirmed Q7(A), Q8(2B), Q9(1B,2 C) Vital Signs Blood pressure diastolic 65 mm Hg 03/06/2025 Height 5ft2in in 03/06/2025 Blood pressure systolic 128 mm Hg 03/06/2025 Weight 177 lbs 03/06/2025 BMI 32.37 kg/m2 03/06/2025 Procedures Procedure Date Ordered Date Performed Result Body Sit e 49885-WZTXGPY NAIL, 6 OR MORE 09/24/2024 N/A 59392-HOIU SKIN LESIONS, 2 TO 4 09/24/2024 N/A Encounters Encounter Location Date Provider Diagnosis [facility] [address] [address] 07/17/2024 Dunia Ceja Atherosclerosis of [place] artery of both lower extremities, with unspecified presence of clinical manifestation I70.203 ; Tinea unguium B35.1 ; Pain in right toe(s) M79.674 ; Pain in left toe(s) M79.675 ; Other hammer toe(s) (acquired), right foot M20.41 and Other hammer toe(s) (acquired), left foot M20.[address] [address] 09/24/2024 Barbara Cheung Atherosclerosis of [place] artery of both lower extremities, with unspecified presence of clinical manifestation I70.203 ; Tinea unguium B35.1 ; Pain in right toe(s) M79.674 and Pain in left toe(s) M79.[address] [address] 03/06/2025 Barbara Cheung Atherosclerosis of [place] artery of both lower extremities, with unspecified presence of clinical manifestation I70.203 ; Tinea unguium B35.1 ; Pain in right toe(s) M79.674 and Pain in left toe(s) M79.675 Assessments Encounter Date Diagnosis (ICD Code) Assessment Notes Treatment Notes Treatment Clinical Notes Section Notes 07/17/2024 Atherosclerosis of [place] artery of both lower extremities, with unspecified presence of clinical manifestation (ICD-10 - I70.203) Q7(A), Q8(2B), Q9(1B,2C) 09/24/2024 Atherosclerosis of [place] artery of both lower extremities, with unspecified presence of clinical manifestation (ICD-10 - I70.203) Q7(A), Q8(2B), Q9(1B,2C) 03/06/2025 Atherosclerosis of [place] artery of both lower extremities, with unspecified [...] Treatment Pending Test Test Name Order Date 81302-PYYGLQC NAIL, 6 OR MORE 09/24/2024 74856-IXZR SKIN LESIONS, 2 TO 4 09/24/20 24 Next Appt Details Provider Name:Barbara Orantes sherlyn, 05/09/2025 01:00:00 PM, [address] [facility], [place], [address], Insurance Providers Payer Name Payer Address Payer Phone Subscriber Number Group Number Insured Name Patient Relationship to Insured Coverage Start Date Coverage End Date Medicare National [employer] [address] [facility] [place] [address] [id number] Marlin Correa Self - patient is the [...]
== END 2025-03-12 13:26 | disposition home or self-care (01) ==
LOC: HO.LAB 13:25
PROVIDERS: PCP Family Medicine; Visit Provider Nurse Practitioner Family
DX: Z79.899 Other long term (current) drug therapy (principal)
CPT/HCPCS: 36415; 80076

== ENCOUNTER → 2025-04-09 23:59 | Outpatient (BNV) | payer MEDICARE, SELFPAY ==
--- NOTE | 2025-04-09 17:48 | A.OFFVIS_ITS ---
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 Allergies levofloxacin [From LEVAQUIN] Allergy (Intermediate, Verified 03/07/25 14:17) RASH Darvocet-N 50 Allergy (Mild, Uncoded 03/07/25 14:17) hives Sulfacet-R Allergy (Unknown, Uncoded 03/07/25 14:17) gi PFSH Medical History Hernia, ventral, with obstruction Asthma Degenerative joint disease Arthritis Thyroid disease Hx of transfusion of packed red blood cells Diverticulosis GERD (gastroesophageal reflux disease) Fibromyalgia Elevated liver enzymes Elevated cholesterol Osteoporosis Presence of Watchman left atrial appendage closure device Hx of radiation therapy History of chemotherapy History of uterine cancer Mild intermittent asthma Osteoarthritis of left hip Cardiomyopathy CAD (coronary artery disease) Pre-operative cardiovascular examination HTN (hypertension) Biventricular ICD (implantable cardioverter-defibrillator) in place (~04/2020) Paroxysmal atrial fibrillation LBBB (left bundle branch block) Chronic systolic heart failure Surgical History History of incisional hernia repair (04/11/24) Hx of cholecystectomy Hx of hysterectomy History of total left hip replacement Hx of hernia repair History of permanent cardiac pacemaker placement Family History Father Cancer Mother No problems noted. 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 Heart failure parameters are stable [id number] Cardiac Device Interrogation, cardio physiologic monitor Procedure code (CPT) selection complete Assessment & Plan Assessment & Plan (1) Biventricular ICD (implantable cardioverter-defibrillator) in place: Onset Date: ~04/2020 Comment: [employer] Code(s): Z95.810 - Presence of automatic (implantable) cardiac defibrillator Category: Medical Plan: See above Coding Level of Care Code Procedure Only Diagnoses Biventricular ICD (implantable cardioverter-defibrillator) in place Z95.810 CPT Codes Cardiac Device Check - Cardiac Device 15: 84985-Cvkidj Cardiac Device Interrogation, cardio physiologic monitor ([id number])
== END ==
PROVIDERS: PCP Family Medicine; Visit Provider Internal Medicine Cardiovascular Disease
DX: Z45.02 Encounter for adjustment and management of automatic implantable cardiac defibrillator (principal)
CPT/HCPCS: 93297

== ENCOUNTER → 2025-04-09 23:59 | Outpatient (BNV) | payer MEDICARE, SELFPAY ==
--- NOTE | 2025-04-09 17:50 | MHC.OFFVIS ---
Intake Visit Reasons: Remote ICD check- [employer] Allergies levofloxacin [From LEVAQUIN] Allergy (Intermediate, Verified 03/07/25 14:17) RASH Darvocet-N 50 Allergy (Mild, Uncoded 03/07/25 14:17) hives Sulfacet-R Allergy (Unknown, Uncoded 03/07/25 14:17) gi PFSH Medical History Hernia, ventral, with obstruction Asthma Degenerative joint disease Arthritis Thyroid disease Hx of transfusion of packed red blood cells Diverticulosis GERD (gastroesophageal reflux disease) Fibromyalgia Elevated liver enzymes Elevated cholesterol Osteoporosis Presence of Watchman left atrial appendage closure device Hx of radiation therapy History of chemotherapy History of uterine cancer Mild intermittent asthma Osteoarthritis of left hip Cardiomyopathy CAD (coronary artery disease) Pre-operative cardiovascular examination HTN (hypertension) Biventricular ICD (implantable cardioverter-defibrillator) in place (~04/2020) Paroxysmal atrial fibrillation LBBB (left bundle branch block) Chronic systolic heart failure Surgical History History of incisional hernia repair (04/11/24) Hx of cholecystectomy Hx of hysterectomy History of total left hip replacement Hx of hernia repair History of permanent cardiac pacemaker placement Family History Father Cancer Mother No problems noted. 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 ICD function is adequate. Bi V pacing 96.1% of the time 25384-Okqgnb Cardiac Interrogation, implant defibrillator w/interim Procedure code (CPT) selection complete Assessment & Plan Assessment & Plan (1) Biventricular ICD (implantable cardioverter-defibrillator) in place: Onset Date: ~04/2020 Comment: [employer] Code(s): Z95.810 - Presence of automatic (implantable) cardiac defibrillator Category: Medical Plan: See above Coding Level of Care Code Procedure Only Diagnoses Biventricular ICD (implantable cardioverter-defibrillator) in place Z95.810 CPT Codes Cardiac Device Check - Cardiac Device 13: 63922-Zjlier Cardiac Interrogation, implant defibrillator w/interim ([id number])
== END ==
PROVIDERS: PCP Family Medicine; Visit Provider Internal Medicine Cardiovascular Disease
DX: Z45.02 Encounter for adjustment and management of automatic implantable cardiac defibrillator (principal)
CPT/HCPCS: 93295

== ENCOUNTER → 2025-05-10 23:59 | Outpatient (BNV) | payer MEDICARE, MEDICAID, SELFPAY ==
--- NOTE | 2025-05-14 13:57 | MHC.OFFVIS ---
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 Allergies levofloxacin (From LEVAQUIN) Allergy (Intermediate, Verified 03/07/25 14:17) RASH Darvocet-N 50 Allergy (Mild, Uncoded 03/07/25 14:17) hives Sulfacet-R Allergy (Unknown, Uncoded 03/07/25 14:17) gi PFSH Medical History Hernia, ventral, with obstruction Asthma Degenerative joint disease Arthritis Thyroid disease Hx of transfusion of packed red blood cells Diverticulosis GERD (gastroesophageal reflux disease) Fibromyalgia Elevated liver enzymes Elevated cholesterol Osteoporosis Presence of Watchman left atrial appendage closure device Hx of radiation therapy History of chemotherapy History of uterine cancer Mild intermittent asthma Osteoarthritis of left hip Cardiomyopathy CAD (coronary artery disease) Pre-operative cardiovascular examination HTN (hypertension) Biventricular ICD (implantable cardioverter-defibrillator) in place (~04/2020) Paroxysmal atrial fibrillation LBBB (left bundle branch block) Chronic systolic heart failure Surgical History History of incisional hernia repair (04/11/24) Hx of cholecystectomy Hx of hysterectomy History of total left hip replacement Hx of hernia repair History of permanent cardiac pacemaker placement Family History Father Cancer Mother No problems noted. 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 Heart failure parameters are stable 53697-Gmxyxq Cardiac Device Interrogation, cardio physiologic monitor Procedure code (CPT) selection complete Assessment & Plan Assessment & Plan (1) Biventricular ICD (implantable cardioverter-defibrillator) in place: Onset Date: ~04/2020 Comment: [employer] Code(s): Z95.810 - Presence of automatic (implantable) cardiac defibrillator Category: Medical Plan: See above Coding Level of Care Code Procedure Only Diagnoses Biventricular ICD (implantable cardioverter-defibrillator) in place Z95.810 CPT Codes Cardiac Device Check - Cardiac Device 15: 72370-Bvttkv Cardiac Device Interrogation, cardio physiologic monitor ([id number])
== END ==
PROVIDERS: PCP Family Medicine; Visit Provider Internal Medicine Cardiovascular Disease
DX: Z45.02 Encounter for adjustment and management of automatic implantable cardiac defibrillator (principal)
CPT/HCPCS: 93297

== ENCOUNTER → 2025-06-10 23:59 | Outpatient (BNV) | payer MEDICARE, MEDICAID, SELFPAY ==
--- NOTE | 2025-06-13 12:44 | A.OFFVIS_ITS ---
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 Allergies levofloxacin (From LEVAQUIN) Allergy (Intermediate, Verified 03/07/25 14:17) RASH Darvocet-N 50 Allergy (Mild, Uncoded 03/07/25 14:17) hives Sulfacet-R Allergy (Unknown, Uncoded 03/07/25 14:17) gi PFSH Medical History Hernia, ventral, with obstruction Asthma Degenerative joint disease Arthritis Thyroid disease Hx of transfusion of packed red blood cells Diverticulosis GERD (gastroesophageal reflux disease) Fibromyalgia Elevated liver enzymes Elevated cholesterol Osteoporosis Presence of Watchman left atrial appendage closure device Hx of radiation therapy History of chemotherapy History of uterine cancer Mild intermittent asthma Osteoarthritis of left hip Cardiomyopathy CAD (coronary artery disease) Pre-operative cardiovascular examination HTN (hypertension) Biventricular ICD (implantable cardioverter-defibrillator) in place (~04/2020) Paroxysmal atrial fibrillation LBBB (left bundle branch block) Chronic systolic heart failure Surgical History History of incisional hernia repair (04/11/24) Hx of cholecystectomy Hx of hysterectomy History of total left hip replacement Hx of hernia repair History of permanent cardiac pacemaker placement Family History Father Cancer Mother No problems noted. 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 Heart failure parameters are stable [id number] Cardiac Device Interrogation, cardio physiologic monitor Procedure code (CPT) selection complete Assessment & Plan Assessment & Plan (1) Biventricular ICD (implantable cardioverter-defibrillator) in place: Onset Date: ~04/2020 Comment: [employer] Code(s): Z95.810 - Presence of automatic (implantable) cardiac defibrillator Category: Medical Plan: See above Coding Level of Care Code Procedure Only Diagnoses Biventricular ICD (implantable cardioverter-defibrillator) in place Z95.810 CPT Codes Cardiac Device Check - Cardiac Device 15: 73715-Kvpuis Cardiac Device Interrogation, cardio physiologic monitor ([id number])
== END ==
PROVIDERS: PCP Family Medicine; Visit Provider Internal Medicine Cardiovascular Disease
DX: Z45.02 Encounter for adjustment and management of automatic implantable cardiac defibrillator (principal)
CPT/HCPCS: 93297

== ENCOUNTER → 2025-07-11 23:59 | Outpatient (BNV) | payer MEDICARE, MEDICAID, SELFPAY ==
--- NOTE | 2025-07-17 13:14 | A.OFFVIS_ITS ---
Intake Visit Reasons: Remote ICD check- [employer] Allergies levofloxacin (From LEVAQUIN) Allergy (Intermediate, Verified 03/07/25 14:17) RASH Darvocet-N 50 Allergy (Mild, Uncoded 03/07/25 14:17) hives Sulfacet-R Allergy (Unknown, Uncoded 03/07/25 14:17) gi PFSH Medical History Hernia, ventral, with obstruction Asthma Degenerative joint disease Arthritis Thyroid disease Hx of transfusion of packed red blood cells Diverticulosis GERD (gastroesophageal reflux disease) Fibromyalgia Elevated liver enzymes Elevated cholesterol Osteoporosis Presence of Watchman left atrial appendage closure device Hx of radiation therapy History of chemotherapy History of uterine cancer Mild intermittent asthma Osteoarthritis of left hip Cardiomyopathy CAD (coronary artery disease) Pre-operative cardiovascular examination HTN (hypertension) Biventricular ICD (implantable cardioverter-defibrillator) in place (~04/2020) Paroxysmal atrial fibrillation LBBB (left bundle branch block) Chronic systolic heart failure Surgical History History of incisional hernia repair (04/11/24) Hx of cholecystectomy Hx of hysterectomy History of total left hip replacement Hx of hernia repair History of permanent cardiac pacemaker placement Family History Father Cancer Mother No problems noted. 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 ICD function is adequate. Bi V pacing 97.7% of the time [id number] Cardiac Interrogation, implant defibrillator w/interim Procedure code (CPT) selection complete Assessment & Plan Assessment & Plan (1) Biventricular ICD (implantable cardioverter-defibrillator) in place: Onset Date: ~04/2020 Comment: [employer] Code(s): Z95.810 - Presence of automatic (implantable) cardiac defibrillator Category: Medical Plan: See above Coding Level of Care Code Procedure Only Diagnoses Biventricular ICD (implantable cardioverter-defibrillator) in place Z95.810 CPT Codes Cardiac Device Check - Cardiac Device 13: 63182-Eskqrc Cardiac Interrogation, implant defibrillator w/interim ([id number])
== END ==
PROVIDERS: PCP Family Medicine; Visit Provider Internal Medicine Cardiovascular Disease
DX: Z45.02 Encounter for adjustment and management of automatic implantable cardiac defibrillator (principal)
CPT/HCPCS: 93295

== ENCOUNTER → 2025-07-11 23:59 | Outpatient (BNV) | payer MEDICARE, MEDICAID, SELFPAY ==
--- NOTE | 2025-07-17 13:15 | MHC.OFFVIS ---
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 Allergies levofloxacin (From LEVAQUIN) Allergy (Intermediate, Verified 03/07/25 14:17) RASH Darvocet-N 50 Allergy (Mild, Uncoded 03/07/25 14:17) hives Sulfacet-R Allergy (Unknown, Uncoded 03/07/25 14:17) gi PFSH Medical History Hernia, ventral, with obstruction Asthma Degenerative joint disease Arthritis Thyroid disease Hx of transfusion of packed red blood cells Diverticulosis GERD (gastroesophageal reflux disease) Fibromyalgia Elevated liver enzymes Elevated cholesterol Osteoporosis Presence of Watchman left atrial appendage closure device Hx of radiation therapy History of chemotherapy History of uterine cancer Mild intermittent asthma Osteoarthritis of left hip Cardiomyopathy CAD (coronary artery disease) Pre-operative cardiovascular examination HTN (hypertension) Biventricular ICD (implantable cardioverter-defibrillator) in place (~04/2020) Paroxysmal atrial fibrillation LBBB (left bundle branch block) Chronic systolic heart failure Surgical History History of incisional hernia repair (04/11/24) Hx of cholecystectomy Hx of hysterectomy History of total left hip replacement Hx of hernia repair History of permanent cardiac pacemaker placement Family History Father Cancer Mother No problems noted. 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 Heart failure parameters are stable [id number] Cardiac Device Interrogation, cardio physiologic monitor Procedure code (CPT) selection complete Assessment & Plan Assessment & Plan (1) Biventricular ICD (implantable cardioverter-defibrillator) in place: Onset Date: ~04/2020 Comment: [employer]tronic Code(s): Z95.810 - Presence of automatic (implantable) cardiac defibrillator Category: Medical Plan: See above Coding Level of Care Code Procedure Only Diagnoses Biventricular ICD (implantable cardioverter-defibrillator) in place Z95.810 CPT Codes Cardiac Device Check - Cardiac Device 15: [id number] Cardiac Device Interrogation, cardio physiologic monitor ([id number])
== END ==
PROVIDERS: PCP Family Medicine; Visit Provider Internal Medicine Cardiovascular Disease
DX: Z45.02 Encounter for adjustment and management of automatic implantable cardiac defibrillator (principal)
CPT/HCPCS: 93297

== ENCOUNTER → 2025-08-11 23:59 | Outpatient (BNV) | payer MEDICARE, SELFPAY ==
--- NOTE | 2025-08-14 10:55 | MHC.OFFVIS ---
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 Allergies levofloxacin (From LEVAQUIN) Allergy (Intermediate, Verified 03/07/25 14:17) RASH Darvocet-N 50 Allergy (Mild, Uncoded 03/07/25 14:17) hives Sulfacet-R Allergy (Unknown, Uncoded 03/07/25 14:17) gi PFSH Medical History Hernia, ventral, with obstruction Asthma Degenerative joint disease Arthritis Thyroid disease Hx of transfusion of packed red blood cells Diverticulosis GERD (gastroesophageal reflux disease) Fibromyalgia Elevated liver enzymes Elevated cholesterol Osteoporosis Presence of Watchman left atrial appendage closure device Hx of radiation therapy History of chemotherapy History of uterine cancer Mild intermittent asthma Osteoarthritis of left hip Cardiomyopathy CAD (coronary artery disease) Pre-operative cardiovascular examination HTN (hypertension) Biventricular ICD (implantable cardioverter-defibrillator) in place (~04/2020) Paroxysmal atrial fibrillation LBBB (left bundle branch block) Chronic systolic heart failure Surgical History History of incisional hernia repair (04/11/24) Hx of cholecystectomy Hx of hysterectomy History of total left hip replacement Hx of hernia repair History of permanent cardiac pacemaker placement Family History Father Cancer Mother No problems noted. 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 Heart failure parameters are stable [id number] Cardiac Device Interrogation, cardio physiologic monitor Procedure code (CPT) selection complete Assessment & Plan Assessment & Plan (1) Biventricular ICD (implantable cardioverter-defibrillator) in place: Onset Date: ~04/2020 Comment: [employer] Code(s): Z95.810 - Presence of automatic (implantable) cardiac defibrillator Category: Medical Plan: See above Coding Level of Care Code Procedure Only Diagnoses Biventricular ICD (implantable cardioverter-defibrillator) in place Z95.810 CPT Codes Cardiac Device Check - Cardiac Device 15: [id number] Cardiac Device Interrogation, cardio physiologic monitor ([id number])
== END ==
PROVIDERS: PCP Family Medicine; Visit Provider Internal Medicine Cardiovascular Disease
DX: I50.9 Heart failure, unspecified (principal); Z95.810 Presence of automatic (implantable) cardiac defibrillator
CPT/HCPCS: 93297

== ENCOUNTER 2025-08-19 12:26 | Outpatient (AMB) | payer MEDICARE, SELFPAY ==
--- NOTE | 2025-08-19 12:28 | A.OFFVIS_ITS ---
Vital Signs 08/19/25 12:29 Height 5 ft 1.5 in Weight 182 lb 15.739 oz BMI 34.0 BP 116/74 Blood Pressure Location Lt brachial Position Sitting Pulse 62 Intake Visit Reasons: 6 mth w/ medtronic ck Intake Note: 6 month follow-up with ekg and Medtronic check feeling ok Linotyper Required: No Allergies levofloxacin (From LEVAQUIN) Allergy (Intermediate, Verified 03/07/25 14:17) RASH Darvocet-N 50 Allergy (Mild, Uncoded 03/07/25 14:17) hives Sulfacet-R Allergy (Unknown, Uncoded 03/07/25 14:17) gi Medication List - Last Reconciled 08/19/25 by Marvin Swanson MD alendronate 70 mg PO DELGADO aspirin (Adult Aspirin Regimen) 81 mg PO DAILY atorvastatin 20 mg PO BEDTIME carvedilol 12.5 mg PO BID cholecalciferol (vitamin D3) (Vitamin D3) 25 mcg PO BID clonazepam 2 mg PO BEDTIME PRN compression socks, medium As directed furosemide 20 mg PO DAILY levothyroxine 75 mcg PO DAILY@0600 loratadine 10 mg PO DAILY multivitamin 1 tab PO DAILY omeprazole 20 mg PO DAILY ondansetron HCl 4 mg PO Q6H PRN sennosides (senna) 17.2 mg PO BEDTIME tramadol 100 mg PO TID valsartan 80 mg PO DAILY zinc oxide 13% 1 appl topical DAILY PRN HPI Comments Details: Marlin comes for follow-up. She has been doing well overall. No worsening shortness of breath, orthopnea, PND. She is having increasing leg swelling both below knee. She also has predominantly significant dependent leg position throughout the day. She is hurting in his right hip and is wanting to see orthopedic surgery to evaluate for possible right hip replacement. She denies any prolonged palpitation irregular heartbeat. No lightheadedness, syncope, ICD discharge. Denies any chest pain. Taking all her medications. [facility] Medical History Hernia, ventral, with obstruction Asthma Degenerative joint disease Arthritis Thyroid disease Hx of transfusion of packed red blood cells Diverticulosis GERD (gastroesophageal reflux disease) Fibromyalgia Elevated liver enzymes Elevated cholesterol Osteoporosis Presence of Watchman left atrial appendage closure device Hx of radiation therapy History of chemotherapy History of uterine cancer Mild intermittent asthma Osteoarthritis of left hip Cardiomyopathy CAD (coronary artery disease) Pre-operative cardiovascular examination HTN (hypertension) Biventricular ICD (implantable cardioverter-defibrillator) in place (~04/2020) Paroxysmal atrial fibrillation LBBB (left bundle branch block) Chronic systolic heart failure Surgical History History of incisional hernia repair (04/11/24) Hx of cholecystectomy Hx of hysterectomy History of total left hip replacement Hx of hernia repair History of permanent cardiac pacemaker placement Family History Father Cancer Mother No problems noted. Social History Household Members: Family Household Members Other:: granddaughter Housing: House Are you a primary personal care home administrator to a significant other at home: No Do you presently have visiting nurse or other home services: Yes ([employer] elder[employer], meals on wheels, senior front end developer for cleaning, bathing) Alcohol intake: never Comment: pt rings appropriately Patient Tobacco Use Status: Never used Tobacco e-Cigarette/Vaping Use: Never Used Second Hand Smoke Exposure: No Advance Directives Date on File: 10/08/21 service: No Current occupational status: retired Current occupation: rt handed Review of Systems Const Denies chills, Denies fatigue, Denies fever(s), Denies frequent falls, Denies weakness, Denies weight gain and Denies weight loss ENT Denies dizziness Card Denies chest pain, Denies leg edema, Denies lightheadedness, Denies palpitations, Denies dyspnea, Denies dyspnea on exertion, Denies orthopnea and Denies other (loss of consciousness) Resp Denies cough, Denies dyspnea and Denies dyspnea on exertion GI Denies hematochezia and Denies change in stool character Musc Denies abnormal gait, Denies muscle weakness, Denies numbness, Denies radiating pain into limb and Denies tingling Neuro Denies abnormal gait, Denies dizziness, Denies frequent falls, Denies numbness, Denies tingling and Denies weakness Endo Denies fatigue and Denies palpitations Physical Exam Vital Signs: Last Vital Signs Pulse 62 08/19/25 12:29 BP 116/74 08/19/25 12:29 BMI result Body Mass Index 34.0 Last Vital Signs Temp 97 F 01/11/24 06:46 Pulse 63 01/11/24 06:46 Resp 16 01/11/24 06:46 BP 141/63 H 01/11/24 06:46 Pulse Ox 95 01/11/24 06:46 O2 Del Method Room Air 01/11/24 06:46 BMI result Body Mass Index 33.8 Const General: cooperative, comfortable, alert, awake and tired appearing Nutritional Appearance: overweight Orientation/consciousness: patient oriented x3 HEENT Head: Yes normocephalic and Yes atraumatic Neck Neck: Yes trachea midline, Yes supple and Yes no JVD Resp Effort & Inspection: normal respiratory effort Auscultation: clear to auscultation bilaterally Cardio Jugular venous distension: no JVD Palpation: normal PMI Rate: regular rate Rhythm: regular rhythm Heart sounds: S1 normal heart sound present, S2 normal heart sound present, no click, no gallops and no murmurs GI Inspection: Yes other (Soft bowel sounds with some tenderness in the periumbilical area) Skin General skin exam: no rashes or lesions noted Neuro General: patient oriented x3 and no focal motor deficits Extrem General: No clubbing, No cyanosis and Yes edema (Three to 4+ below knee edema) Office Procedures Cardiac Device Check Cardiac Device Check Details: Biventricular Medtronic ICD in place. Programmed in DDDR at 60 beats per minute. Biventricular ICD greater than 99% time. Few episodes of atrial fibril lation noted with total burden of 0.2%. No ventricular arrhythmias noted. Atrial ventricular sensing was adequate. Atrial and biventricular pacing thresholds are excellent and reprogrammed to enhance battery life. Pacing and shock lead impedance is stable. Battery life is at 2.8 years [id number] Cardiac Device Check, multi lead implantable defibrillator Procedure code (CPT) selection complete EKG Details: EKGs shows atrially sensed, ventricularly paced rhythm with fusion complex [id number], Complete Assessment & Plan Assessment & Plan (1) Heart failure with recovered ejection fraction (HFrecEF): Code(s): I50.20 - Unspecified systolic (congestive) heart failure Category: Medical Plan: Heart failure with recovered ejection fraction since cardiac resynchronization therapy. She is doing overall well with LV ejection fraction. Although clinically appears to be mildly volume overloaded. Advised to increase Lasix for next few days till her leg edema improves and her weight comes down. She has gained about 5 lb. Once status done she can go back to 20 mg daily. Continue neurohormonal modulation with valsartan and carvedilol therapy. Can not maximize due to her blood pressure. Overall otherwise doing well. Follow- up echocardiogram in 6 months time. (2) Paroxysmal atrial fibrillation: Code(s): I48.0 - Paroxysmal atrial fibrillation Category: Medical Plan: Paroxysmal atrial fibrillation, still as brief episodes but not sustained. She is status post Watchman device. Avoidance of stimulants was discussed. Continue carvedilol therapy. No indication for antiarrhythmic drug therapy. Will continue monitor by pacer telemetry. (3) Biventricular ICD (implantable cardioverter-defibrillator) in place: Onset Date: ~04/2020 Comment: [employer] Code(s): Z95.810 - Presence of automatic (implantable) cardiac defibrillator Category: Medical Plan: Biventricular ICD in place for severe LV systolic dysfunction with left bundle- branch block. Has done in very well since placement of cardiac resynchronization therapy. Will follow remotely for heart failure as well as for device check. Will follow up in the clinic in 6 months time, sooner p.r.n.. Thank you for allowing me to partake in her care Orders: Orders CA echo transthoracic complete 6 Months I50.20 - Unspecified systolic (congestive) heart failure Coding Level of Care Code Est Pt Level 4 (08959) Complex EM visit Add On G2211 Diagnoses Heart failure with recovered ejection fraction (HFrecEF) I50.20 Paroxysmal atrial fibrillation I48.0 Biventricular ICD (implantable cardioverter-defibrillator) in place Z95.810 CPT Codes Cardiac Device Check - Cardiac Device 6: [id number] Cardiac Device Check, multi lead implantable defibrillator ([id number]) EKG - CPT: 59407-[id number], Complete ([id number])
[2025-08-19 12:29] VITALS: BP 116/74; PULSE 62; BMI 34.0
== END 2025-08-19 12:56 | disposition home or self-care (01) ==
LOC: HO.HCS 12:27
PROVIDERS: PCP Family Medicine; Visit Provider Internal Medicine Cardiovascular Disease
DX: I50.20 Unspecified systolic (congestive) heart failure (principal); I48.0 Paroxysmal atrial fibrillation; Z95.810 Presence of automatic (implantable) cardiac defibrillator
CPT/HCPCS: 93010; 93284; 99214; G2211

== ENCOUNTER → 2025-08-19 12:26 | Outpatient (BNVA) | payer MEDICARE, SELFPAY | PROVIDERS: PCP Family Medicine; Visit Provider Internal Medicine Cardiovascular Disease | DX: Z45.02 Encounter for adjustment and management of automatic implantable cardiac defibrillator (principal); I50.20 Unspecified systolic (congestive) heart failure; I44.7 Left bundle-branch block, unspecified; I48.0 Paroxysmal atrial fibrillation | CPT/HCPCS: 93005; 93284; 99212 ==

== ENCOUNTER → 2025-10-25 16:12 | Outpatient (BNV) | payer MEDICARE, MEDICAID, SELFPAY | PROVIDERS: PCP Family Medicine; Visit Provider Internal Medicine Cardiovascular Disease | DX: I50.9 Heart failure, unspecified (principal); Z45.02 Encounter for adjustment and management of automatic implantable cardiac defibrillator | CPT/HCPCS: 93295 ==